=== PATIENT | female | born 1940 | race Caucasian/White ===

== ENCOUNTER → 2023-04-10 09:27 | Outpatient (REF) | payer MEDICARE, BC, SELFPAY ==
[2023-04-10 10:08] LABS: Ionized Calcium 1.22 mMOL/L (1.15-1.33)
[2023-04-10 10:18] LABS: % Basophils 0.4 % (0-2); % Eosinophils 2.2 % (0-6); % Immature Granulocytes 0.2 % (0-0.5); % Lymphocytes 38.4 % (20.5-51.1); % Monocytes 6.6 % (1.7-9.3); % Neutrophils 52.2 % (42.2-75.2); Absolute Basophils 0.1 10^3/uL (0-0.2); Absolute Eosinophils 0.3 10^3/uL (0-0.7); Absolute Lymphocytes 4.8 10^3/uL (1.2-3.4); Absolute Monocytes 0.8 10^3/uL (0.1-0.6); Absolute Neutrophils 6.5 10^3/uL (1.4-6.5); Hematocrit 36.4 % (37.0-47.0); Hemoglobin 11.9 g/dL (12.0-16.0); Mean Corp Hgb Conc. 32.7 g/dL (33.0-37.0); Mean Corpuscular Hgb 29.5 pg (27.0-31.0); Mean Corpuscular Volume 90.3 fL (81.0-99.0); Mean Platelet Volume 10.3 fL (7.4-10.4); Nucleated Red Blood Cells % 0 %; Platelet Count 203 10^3/uL (130-400); Red Blood Cell Count 4.03 10^6/uL (4.20-5.40); Red Cell Dist. Width 14.1 % (11.5-14.5); White Blood Cell Count 12.5 10^3/uL (4.8-10.8)
[2023-04-10 10:45] LABS: ALT (SGPT) 16 U/L (0-35); AST (SGOT) 21 U/L (14-36); Albumin 3.8 g/dl (3.5-5.0); Alkaline Phosphatase 117 U/L (38-126); Blood Urea Nitrogen 36 mg/dl (7-17); Carbon Dioxide 24 mmol/L (22-30); Chloride 108 mmol/L (98-107); Glucose 156 mg/dl (70-99); Magnesium 2.1 mg/dl (1.6-2.3); Phosphorus 3.6 mg/dl (2.5-4.5); Sodium 138 mmol/L (135-145); Total Bilirubin 0.7 mg/dl (0.2-1.3); Total Protein 6.7 g/dl (6.3-8.2); eGFR 27.78
[2023-04-10 10:54] LABS: Intact PTH 114.6 pg/ml (13.6-85.8)
[2023-04-10 11:10] LABS: Erythrocyte Sed Rate 28 mm/hour (0-20)
[2023-04-10 11:30] LABS: Protein/creatinine Ratio 0.3; Urine Protein 31 mg/dl
[2023-04-10 11:37] LABS: Vitamin D, 25-OH*** 53.9 ng/mL (30-80)
[2023-04-10 11:40] LABS: Urine Albumin Trace (Neg - Trace); Urine Bilirubin Negative (Negative); Urine Character Slightly Cloudy (Clear); Urine Color Yellow; Urine Glucose Negative (Negative); Urine Ketone Negative (Negative); Urine Leukocyte 2+ (Negative); Urine Nitrite Positive (Negative); Urine Occult Blood Trace (Negative); Urine Specific Gravity 1.015 (<1.030); Urine Urobilinogen Negative (Neg - 1+)
[2023-04-10 11:57] LABS: Urine Bacteria Many (Negative); Urine White Cell 50-60 /HPF (0-5)
== END ==
LOC: REG 09:27
PROVIDERS: ATTENDING PHYSICIAN Internal Medicine Nephrology; FAMILY PHYSICIAN Student in an Organized Health Care Education/Training Program
DX: D63.1 Anemia in chronic kidney disease (principal); E11.21 Type 2 diabetes mellitus with diabetic nephropathy; E78.5 Hyperlipidemia, unspecified; E55.9 Vitamin D deficiency, unspecified; R80.9 Proteinuria, unspecified; N18.4 Chronic kidney disease, stage 4 (severe); N25.81 Secondary hyperparathyroidism of renal origin
CPT/HCPCS: 36415; 80053; 81003; 81015; 82306; 82330; 82570; 83735; 83970; 84100; 84156; 84550; 85025; 85652; 87086; 87088; 87186

== ENCOUNTER 2023-04-22 12:00 | Emergency (ER) | payer MEDICARE, BC, SELFPAY ==
[2023-04-22] VITALS (24 sets, daily range): BP systolic 97–165; BP diastolic 50–127; BMI 24.6
[2023-04-22 12:49] LABS: % Basophils 0.3 % (0-2); % Eosinophils 1.1 % (0-6); % Immature Granulocytes 0.3 % (0-0.5); % Lymphocytes 39.1 % (20.5-51.1); % Monocytes 4.6 % (1.7-9.3); % Neutrophils 54.6 % (42.2-75.2); Absolute Eosinophils 0.1 10^3/uL (0-0.7); Absolute Lymphocytes 5.1 10^3/uL (1.2-3.4); Absolute Monocytes 0.6 10^3/uL (0.1-0.6); Absolute Neutrophils 7.2 10^3/uL (1.4-6.5); Hematocrit 37.1 % (37.0-47.0); Hemoglobin 12.2 g/dL (12.0-16.0); Mean Corp Hgb Conc. 32.9 g/dL (33.0-37.0); Mean Corpuscular Hgb 29.9 pg (27.0-31.0); Mean Corpuscular Volume 90.9 fL (81.0-99.0); Mean Platelet Volume 10.5 fL (7.4-10.4); Nucleated Red Blood Cells % 0 %; Platelet Count 186 10^3/uL (130-400); Red Blood Cell Count 4.08 10^6/uL (4.20-5.40); Red Cell Dist. Width 14.8 % (11.5-14.5); White Blood Cell Count 13.1 10^3/uL (4.8-10.8)
[2023-04-22 13:02] LABS: ALT (SGPT) 82 U/L (0-35); AST (SGOT) 112 U/L (14-36); Albumin 3.9 g/dl (3.5-5.0); Alkaline Phosphatase 168 U/L (38-126); Blood Urea Nitrogen 38 mg/dl (7-17); Calcium 8.8 mg/dl (8.4-10.2); Carbon Dioxide 20 mmol/L (22-30); Chloride 106 mmol/L (98-107); Glucose 265 mg/dl (70-99); Potassium 4.3 mmol/L (3.5-5.1); Sodium 133 mmol/L (135-145); Total Bilirubin 0.5 mg/dl (0.2-1.3); Total Protein 6.4 g/dl (6.3-8.2); eGFR 24.48
[2023-04-22 13:33] LABS: TSH Reflex To Free T4 1.62 uIU/ml (0.47-4.68)
--- NOTE | 2023-04-22 13:41 | EDRN ---
Aida VELAZQUEZ in room w/ pt.
--- NOTE | 2023-04-22 13:59 | EDRN ---
HR us 118-136 bpm in A Fib w/ RVR rhythm
[2023-04-22] MEDS: NSS 500 IV (14:07)
[2023-04-22] MEDS: CARDIZEM 15 MG IV (14:08)
[2023-04-22] MEDS: CARDIZEM 125 IV (14:08)
--- NOTE | 2023-04-22 14:11 | ED.GENMED ---
History of Present Illness
<Jenae Whitley PA-C - Last Filed: 04/23/23 11:44>
General
Chief Complaint: Heart Rate Problem
Source: patient
Exam Limitations: none
Time Seen by Provider: 04/22/23 13:26
Nursing documentation reviewed up to this point in time: agreed with
Travel History
Have you had any contact with someone who has COVID-19?: No
Do you have any symptoms of coronavirus? Fever > 100 degrees, chills, cough, shortness of breath, sore throat, loss of taste or smell, muscle aches, or headache?: No
History of Present Illness
History of Present Illness:
Patient is an 82-year-old female with history of paroxysmal A-fib on Eliquis, hypertension, hyperlipidemia, diabetes presenting for evaluation of A-fib after using Bilibot jaya this morning. Patient unsure exactly how long she has been in A-fib. She
does report noticing some increasing fatigue over the the past month but is attributing this to stress related to her ill . Patient denies any true shortness of breath, chest pain, weakness. No recent fever, chills, virus.
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 She has history of cardioversions.
She takes eliquis and carvedilol for management of afib - compliant with medications.
Past History
<ZACH Jimenez Last Filed: 04/23/23 11:44>
Past History
ED Past Medical History: Arrthythmia, CAD, HTN, Hypercholesterolemia, NIDDM and Hypothyroidism
ED Past Surgical History: Cardiac (Cath LAD stent)
Social History
Tobacco: Non-smoker
Alcohol: None
Drug: None
Personal:
Living: with family
Employment: Retired
Family History
Family History: CAD (MOM-ND age 50)
Phy Exam
<Jenae Whitley PA-C - Last Filed: 04/23/23 11:44>
Physical Exam
Physical Exam:
General: In no apparent distress, non-toxic
Vitals: tachycardia, otherwise vital signs stable, afebrile
HEENT: Atraumatic, normocephalic; protecting airway
Neck: appears supple, no JVD
CV: Tachycardic, irregular rate, irregular rhythm, heart sounds normal, no evidence of cyanosis
Resp: No evidence of respiratory distress, lungs clear bilaterally
Abd: Soft, nontender in all 4 quadrants, non-distended
Extremities: No deformities
Neuro: alert
Psych: Normal affect
Skin: Intact
Course
<Jenae Whitley PA-C - Last Filed: 04/23/23 11:44>
Orders/Labs/Results
Orders:
Orders
04/22/23 12:14
Electrocardiogram (*1) Urgent
Reason for Study: Atrial Fibrillation
EKG- Treatment ONCE
04/22/23 12:30
Complete Blood Count/With Diff Urgent
Comprehensive Metabolic Panel Urgent
TSH Reflex To Free T4 Urgent
04/22/23 13:54
0.9% Sodium Chloride 500 ml [Nss] 500 ml IV BOLUS
Diltiazem HCl [Cardizem] 15 mg IV NOW STA
04/22/23 14:00
Diltiazem 125 mg/125 ml Nss [Cardizem] 125 mg in 125 ml IV PER PROTOCOL
Initial dose in mg/hr, then titrate:: 5
Titrate to keep:: Heart rate 80-100 bpm
Titrate by mg/hr:: 5 mg/hr
Frequency of titrations (minutes):: 15
Maximum dose in mg/hr:: 15
04/22/23 16:39
Propofol [Diprivan] 20 ml .ROUTE .STK-MED
04/22/23 17:06
Electrocardiogram (*1) Urgent
Reason for Study: Chest Pain
EKG- Treatment ONCE
Abnormal Lab Results
04/22/23
12:30
WBC 13.1 H 10^3/uL
(4.8-10.8)
RBC 4.08 L 10^6/uL
(4.20-5.40)
MCHC 32.9 L g/dL
(33.0-37.0)
RDW 14.8 H %
(11.5-14.5)
MPV 10.5 H fL
(7.4-10.4)
Absolute Neuts (auto) 7.2 H 10^3/uL
(1.4-6.5)
Absolute Lymphs (auto) 5.1 H 10^3/uL
(1.2-3.4)
Sodium 133 L mmol/L
(135-145)
Carbon Dioxide 20 L mmol/L
(22-30)
BUN 38 H mg/dl
(7-17)
Creatinine 2.0 H mg/dL
(0.6-1.0)
Glucose 265 H mg/dl
(70-99)
AST 112 H U/L
(14-36)
ALT 82 H U/L
(0-35)
Alkaline Phosphatase 168 H U/L
(38-126)
04/22/23 12:30
04/22/23 12:30
Vital Signs
Initial and Last Documented VS:
Initial Vital Signs
Temp Pulse Resp BP Pulse Ox
98.4 F 136 18 117/94 100
04/22/23 12:12 04/22/23 12:12 04/22/23 12:12 04/22/23 12:12 04/22/23 12:12
Last Documented Vital Signs
Temp Pulse Resp BP Pulse Ox
97.6 F 59 16 165/64 97
04/22/23 17:15 04/22/23 18:01 04/22/23 18:01 04/22/23 18:01 04/22/23 18:01
<Jorgito Meadows MD - Last Filed: 04/22/23 15:07>
Orders/Labs/Results
Orders:
Orders
04/22/23 12:14
Electrocardiogram (*1) Urgent
Reason for Study: Atrial Fibrillation
EKG- Treatment ONCE
04/22/23 12:30
Complete Blood Count/With Diff Urgent
Comprehensive Metabolic Panel Urgent
TSH Reflex To Free T4 Urgent
04/22/23 13:54
0.9% Sodium Chloride 500 ml [Nss] 500 ml IV BOLUS
Diltiazem HCl [Cardizem] 15 mg IV NOW STA
04/22/23 14:00
Diltiazem 125 mg/125 ml Nss [Cardizem] 125 mg in 125 ml IV PER PROTOCOL
Initial dose in mg/hr, then titrate:: 5
Titrate to keep:: Heart rate 80-100 bpm
Titrate by mg/hr:: 5 mg/hr
Frequency of titrations (minutes):: 15
Maximum dose in mg/hr:: 15
04/22/23 16:39
Propofol [Diprivan] 20 ml .ROUTE .STK-MED
04/22/23 17:06
Electrocardiogram (*1) Urgent
Reason for Study: Chest Pain
EKG- Treatment ONCE
Abnormal Lab Results
04/22/23
12:30
WBC 13.1 H 10^3/uL
(4.8-10.8)
RBC 4.08 L 10^6/uL
(4.20-5.40)
MCHC 32.9 L g/dL
(33.0-37.0)
RDW 14.8 H %
(11.5-14.5)
MPV 10.5 H fL
(7.4-10.4)
Absolute Neuts (auto) 7.2 H 10^3/uL
(1.4-6.5)
Absolute Lymphs (auto) 5.1 H 10^3/uL
(1.2-3.4)
Sodium 133 L mmol/L
(135-145)
Carbon Dioxide 20 L mmol/L
(22-30)
BUN 38 H mg/dl
(7-17)
Creatinine 2.0 H mg/dL
(0.6-1.0)
Glucose 265 H mg/dl
(70-99)
AST 112 H U/L
(14-36)
ALT 82 H U/L
(0-35)
Alkaline Phosphatase 168 H U/L
(38-126)
04/22/23 12:30
04/22/23 12:30
Vital Signs
Initial and Last Documented VS:
Initial Vital Signs
Temp Pulse Resp BP Pulse Ox
98.4 F 136 18 117/94 100
04/22/23 12:12 04/22/23 12:12 04/22/23 12:12 04/22/23 12:12 04/22/23 12:12
Last Documented Vital Signs
Temp Pulse Resp BP Pulse Ox
97.6 F 59 16 165/64 97
04/22/23 17:15 04/22/23 18:01 04/22/23 18:01 04/22/23 18:01 04/22/23 18:01
<Marcus Erickson, DO - Last Filed: 04/22/23 17:10>
Orders/Labs/Results
Orders:
Orders
04/22/23 12:14
Electrocardiogram (*1) Urgent
Reason for Study: Atrial Fibrillation
EKG- Treatment ONCE
03/07/24 12:30
Complete Blood Count/With Diff Urgent
Comprehensive Metabolic Panel Urgent
TSH Reflex To Free T4 Urgent
04/22/23 13:54
0.9% Sodium Chloride 500 ml [Nss] 500 ml IV BOLUS
Diltiazem HCl [Cardizem] 15 mg IV NOW STA
04/22/23 14:00
Diltiazem 125 mg/125 ml Nss [Cardizem] 125 mg in 125 ml IV PER PROTOCOL
Initial dose in mg/hr, then titrate:: 5
Titrate to keep:: Heart rate 80-100 bpm
Titrate by mg/hr:: 5 mg/hr
Frequency of titrations (minutes):: 15
Maximum dose in mg/hr:: 15
04/22/23 16:39
Propofol [Diprivan] 20 ml .ROUTE .STK-MED
04/22/23 17:06
Electrocardiogram (*1) Urgent
Reason for Study: Chest Pain
EKG- Treatment ONCE
Abnormal Lab Results
04/22/23
12:30
WBC 13.1 H 10^3/uL
(4.8-10.8)
RBC 4.08 L 10^6/uL
(4.20-5.40)
MCHC 32.9 L g/dL
(33.0-37.0)
RDW 14.8 H %
(11.5-14.5)
MPV 10.5 H fL
(7.4-10.4)
Absolute Neuts (auto) 7.2 H 10^3/uL
(1.4-6.5)
Absolute Lymphs (auto) 5.1 H 10^3/uL
(1.2-3.4)
Sodium 133 L mmol/L
(135-145)
Carbon Dioxide 20 L mmol/L
(22-30)
BUN 38 H mg/dl
(7-17)
Creatinine 2.0 H mg/dL
(0.6-1.0)
Glucose 265 H mg/dl
(70-99)
AST 112 H U/L
(14-36)
ALT 82 H U/L
(0-35)
Alkaline Phosphatase 168 H U/L
(38-126)
04/22/23 12:30
04/22/23 12:30
Vital Signs
Initial and Last Documented VS:
Initial Vital Signs
Temp Pulse Resp BP Pulse Ox
98.4 F 136 18 117/94 100
04/22/23 12:12 04/22/23 12:12 04/22/23 12:12 04/22/23 12:12 04/22/23 12:12
Last Documented Vital Signs
Temp Pulse Resp BP Pulse Ox
97.6 F 59 16 165/64 97
04/22/23 17:15 04/22/23 18:01 04/22/23 18:01 04/22/23 18:01 04/22/23 18:01
Procedures
<Jenae Whitley PA-C - Last Filed: 04/23/23 11:44>
Cardioversion
Indication:: Afib
Performed by:: Dr. Erickson
<Marcus Erickson DO - Last Filed: 04/22/23 17:10>
Moderate Sedation
ASA Risk Score: Class II
Chart and allergies reviewed: Yes
Consent for anesthesia obtained: Yes
Time out completed (validating right patient & procedure): Yes
History of difficult intubation: No
Airway free of obstruction: Yes
Patient has a gag reflex: Yes
Patient is able to open mouth: Yes
Patient has no dentures: Yes
Patient has no loose teeth: Yes
Medication administered by Provider during Moderate Sedation: IV Propofol (mg)
Total dose administered: 50
Time drug administered: 17:02
Start Time: 17:02
Stop Time: 17:12
Cardioversion
Synchronized?: Yes
Energy Used: 150 joules
Number of attempts: 1
Successful?: Yes
Complications: None
ASA Risk Score: Class II
Any reaction or bad outcome to prior sedation/anesthesia?: No history of a reaction
Sedation level to be attained: moderate
Chart and allergies reviewed: Yes
Patient reassessed prior to sedation: Yes
Time out completed at (validating right patient & procedure): 17:01
History of difficult intubation: No
Airway free of obstruction: Yes
Patient has a gag reflex: Yes
Patient is able to open mouth: Yes
Patient has no dentures: Yes
Patient has no loose teeth: Yes
Medication administered by Provider during Moderate Sedation: IV Propofol (mg)
Total dose administered: 50
Time drug administered: 17:02
Start Time: 17:02
Stop Time: 17:12
<Jenae Whitley PA-C - Last Filed: 04/23/23 11:44>
MDM/Problems Addressed
Differential Diagnosis Includes:
Atrial fibrillation, UTI, viral illness, covid, influenza
MDM/Problems Addressed:
Patient is a 82 year old female with history as documented presenting in atrial fibrillation RVR after noticing on jaya, Bilibot this morning. Patient has noticed increased fatigue but is otherwise asymptomatic. Patient is compliant with eliquis and
carvedilol for afib. 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 She has required cardioversions in the past. She is tachycardic, otherwise stable vital signs. Physical examination as documented above. She is in no apparent distress. Heart
rate irregularly irregular, lungs clear.
Initial EKG shows atrial fibrillation RVR with no signs of ischemia, HR 108. Labs obtained in triage show milk leukocytosis and renal insufficiency which appears chronic. Also findings of transaminitis but patient denies any abdominal pain. She is
aware and will have labs rechecked with primary. TSH normal.
Patient is essentially asymptomatic and stable. Will attempt chemical cardioversion first. Gave 15mg cardizem bolus and will start drip. Will reassess.
Fortunately heart rate has decreased into normal ranges between 60s-80s but remains irregular in atrial fibrillation. Discussed with cardiology who recommend cardioversion in emergency department. Discussed with patient, consent signed. Will proceed
with cardioversion.
Cardioversion successful on first attempt 150J. Repeat EKG obtained which shows normal sinus rhythm. Will plan for discharge after sedation.
Patient stable for discharge with return precautions and cardiology follow-up. She should continue medications as prescribed. Patient comfortable with this plan. All questions answered.
Chronic conditions affecting care:
Atrial fibrillation, Hypertension
Acute Exacerbation and/or Progression of Chronic Illness:
Atrial fibrillation RVR
<Jenae Whitley PA-C - Last Filed: 04/23/23 11:44>
*Pulse Oximetry
Patient hypoxic: no
*EKG
Interpreted by ED Provider?: Yes
Interpretation: abnormal
Comparison EKG: changes noted
Heart Rate: 108
Rate: tachycardiac
Rhythm: a-fib
Ischemia: no ischemia
*Kettle Chipper Interpretation
Rate: tachycardiac
Interpretation: abnormal
Heart Rate: 120
Rhythm: a-fib
Data Reviewed
Review of Other/Old Records Reveals: Labs
Source: patient
<Marcus Erickson DO - Last Filed: 04/22/23 17:10>
*Critical Care Note
Total Time (30-74mins, 75-104mins- exclusive of procedures): 33 min
comment:
The high probability of a clinically significant, sudden or life threatening deterioration of the cardiovascular system(s) required my full and direct attention, intervention and personal management. The aggregate critical care time was 33 minutes.
This time is in addition to time spent performing reported procedures but includes the following:
[x] Data Review and interpretation
[x] Patient assessment and monitoring of vital signs
[x] Documentation
[x] Medication orders and management
<Jenae Whitley PA-C - Last Filed: 04/23/23 11:44>
Patient Management
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
<Marcus Erickson DO - Last Filed: 04/22/23 17:10>
Update Note
Update Note:
Care of patient was transitioned pending A-fib reassessment and cardiology input. Patient still in rate controlled A-fib despite being on Cardizem drip. Cardiology suggesting cardioversion. Patient consented for moderate sedation and
cardioversion. Patient was initially attempted on chemical cardioversion with IV Cardizem which was unsuccessful. Patient understands procedure and acknowledged risks. Patient tolerated procedure well and is currently in sinus rhythm.
ED Attending Note
<Jenae Whtiley PA-C - Last Filed: 04/23/23 11:44>
-
Portions of this chart may have been created with voice recognition software.� Occasional wrong word or��sound alike� substitutions may have occurred due to the inherent limitations of voice recognition software.
<Jorgito Meadows MD - Last Filed: 04/22/23 15:07>
ED Attending Note
Patient seen and examined by attending physician: Yes
ED Attending Note:
Patient with history of paroxysmal atrial fibrillation on Eliquis and carvedilol, presents to ED secondary to recurrent atrial fibrillation noted this morning, when she checked her pulse on Bilibot jaya. Patient denies dizziness or shortness of
breath. Denies fatigue or weakness. Denies chest pain or shortness of breath. Denies nausea or vomiting. Patient states that she only checked her pulse, at the prompting of her daughters, and she has been under heavy stress due to deteriorating
health conditions of her . Denies recent change in medications or diet. AM dose of Eliquis was taken this morning at home.
Physical Exam
General: no apparent distress, not acutely ill. afebrile
Head: nc/at. eomi
Neck: supple. no meningeal signs.
Heart: irregularly irregular, tachycardic, no murmur. equal radial pulses.
Lungs: no acute respiratory distress. clear bilaterally
Abdomen: normal bowel sounds. not tender.
Neuro: alert and oriented. no focal neurological deficits
Skin: no rash
Psychiatric: well kept. interactive and cooperative
Extremities: no edema. no calf tenderness.
History and exam consistent with rapid atrial fibrillation, without any overt symptoms. Patient will be given IV fluids, Cardizem bolus and started on Cardizem infusion. Patient to be reassessed afterwards.
Discharge Plan
Departure
Patient Disposition: Home (Routine Discharge)
Date of Disposition: 04/22/23
Time of Disposition: 17:40
Patient with high blood pressure during this ER visit?: Yes
Condition: Good
Covid-19: Not Applicable
Discharge Problem:
Atrial fibrillation with rapid ventricular response, Encounter for cardioversion procedure
Instructions: Atrial Fibrillation (DC), MODERATE SEDATION ADULT
Prescriptions:
No Action
cyanocobalamin (vitamin B-12) 1,000 MCG tablet
1,000 mcg PO DAILY
ascorbic acid (vitamin C) 250 MG tablet
250 mg PO DAILY
rosuvastatin 10 MG tablet
10 mg PO HS
cholecalciferol (vitamin D3) 1,000 UNITS tablet
3,000 units PO DAILY
levothyroxine 75 mcg Tablet
75 mcg PO DAILY
insulin glargine [Lantus Solostar U-100 Insulin] 100 unit/mL (3 mL) insulin pen
13 unit SC HS
lidocaine [Salonpas (lidocaine)] 4 % Adhesive Patch,Medicated
1 patch TOPICAL DAILY
carvedilol 12.5 mg Tablet
12.5 mg PO BID 30 Days Qty: 60 0RF
Eliquis 2.5 mg tablet
2.5 mg PO BID
insulin aspart U-100 [Novolog FlexPen U-100 Insulin] 100 unit/mL (3 mL) insulin pen
5 units SC AC
Referrals:
Susie Mc PA-C [Family Provider] -
Cam Read MD [Active] - 05/06/23 11:20 am (You have a cardiology follow-up appointment at the [place] office. Please call with questions)
Activity Restrictions/Additional Instructions:
-Return to the emergency department with high fevers, chest pain, shortness of breath, weakness, intractable vomiting, numbness/tingling, severe abdominal pain, worsening in current symptoms, or any other concerns.
-You should continue to take your medications as prescribed.
-Follow-up with cardiology for further evaluation/management of atrial fibrillation.
-Stay well hydrated.
-As discussed- your liver function tests were elevated today while in the emergency department. You should have these levels rechecked with your primary care provider.
Interventions
Interventions:
*Risk Screen - Suicide Last Done: 04/22/23 13:10
*General Assessment Last Done: 04/22/23 13:10
*Neglect/Abuse Screening Last Done: 04/22/23 13:10
ED- Fall Risk Assessment Last Done: 04/22/23 13:10
*ED COVID-19 Vaccine History Last Done: 04/22/23 13:10
*Nursing Disposition Last Done: 04/22/23 18:25
ED- Cardiac Assessment Last Done: 04/22/23 13:10
ED- Pulmonary Assessment Last Done: 04/22/23 13:10
Discharge Date and Time
Discharge Date/Time: 04/22/23 18:25
--- NOTE | 2023-04-22 14:32 | EDRN ---
This RN contacted [facility] about how to notify POA. They will notify POA as they usually do via e-mail w/ info that This RN gave them. This RN was also told by facility that pt is not ajudicated and is able to make his own decisions even
with his mild MR.
--- NOTE | 2023-04-22 15:07 | EDRN ---
HR 60's to 80's at this time. Cardizem remains at 5 mcg per min/5 mL per hour via pump. Rhythm remains A Fib.
--- NOTE | 2023-04-22 15:56 | EDRN ---
Pt just OOB to BR at this time. Cardizem maintained at 5 mg per min/ 5 mL per hour at this time as HR <80.
--- NOTE | 2023-04-22 15:58 | EDRN ---
Pt remains in A FIb w/ controlled ventricular response w/ rate 60-90's at this time. Pt is now awaiting Aida VELAZQUEZ to speak w/ cardiology about plan going forward for pt.
--- NOTE | 2023-04-22 17:12 | EDRN ---
Cardizem turned off at 16:[address] order of [address] Eirckson as pt to have cardioversion.
== END 2023-04-22 18:25 | disposition home or self-care (01) ==
LOC: EMR 12:00
PROVIDERS: Emergency Medicine; EMERGENCY PHYSICIAN Student in an Organized Health Care Education/Training Program; FAMILY PHYSICIAN Student in an Organized Health Care Education/Training Program
DX: I48.20 Chronic atrial fibrillation, unspecified (principal); I48.0 Paroxysmal atrial fibrillation; I10 Essential (primary) hypertension; N28.9 Disorder of kidney and ureter, unspecified; D72.829 Elevated white blood cell count, unspecified; Z79.01 Long term (current) use of anticoagulants
CPT/HCPCS: 99291; 92960; 96374; 96376; 99152; 96361; 80053; 84443; 85025; 93005

== ENCOUNTER → 2023-05-29 08:21 | Outpatient (REF) | payer MEDICARE, BC, SELFPAY ==
[2023-05-29 09:24] LABS: % Basophils 0.4 % (0-2); % Eosinophils 1.6 % (0-6); % Immature Granulocytes 0.3 % (0-0.5); % Lymphocytes 47.1 % (20.5-51.1); % Monocytes 4.9 % (1.7-9.3); % Neutrophils 45.7 % (42.2-75.2); Absolute Basophils 0.1 10^3/uL (0-0.2); Absolute Eosinophils 0.2 10^3/uL (0-0.7); Absolute Lymphocytes 6.3 10^3/uL (1.2-3.4); Absolute Monocytes 0.7 10^3/uL (0.1-0.6); Absolute Neutrophils 6.1 10^3/uL (1.4-6.5); Hemoglobin 12.8 g/dL (12.0-16.0); Mean Corpuscular Hgb 29.4 pg (27.0-31.0); Mean Corpuscular Volume 91.7 fL (81.0-99.0); Mean Platelet Volume 10.2 fL (7.4-10.4); Nucleated Red Blood Cells % 0 %; Platelet Count 203 10^3/uL (130-400); Red Blood Cell Count 4.36 10^6/uL (4.20-5.40); Red Cell Dist. Width 14.7 % (11.5-14.5); White Blood Cell Count 13.4 10^3/uL (4.8-10.8)
[2023-05-29 10:38] LABS: ALT (SGPT) 17 U/L (0-35); AST (SGOT) 25 U/L (14-36); Albumin 4.4 g/dl (3.5-5.0); Alkaline Phosphatase 87 U/L (38-126); Blood Urea Nitrogen 26 mg/dl (7-17); Calcium 10.2 mg/dl (8.4-10.2); Carbon Dioxide 26 mmol/L (22-30); Chloride 108 mmol/L (98-107); Direct Bilirubin 0.4 mg/dl (0.0-0.4); Glucose 66 mg/dl (70-99); HDL Cholesterol 75 mg/dl; LDL Cholesterol, Calculated 65 mg/dl; Potassium 4.3 mmol/L (3.5-5.1); Sodium 143 mmol/L (135-145); Total Bilirubin 0.7 mg/dl (0.2-1.3); Total Cholesterol 153 mg/dl (50-199); Triglyceride 69 mg/dl (10-149); Very Low Density Lipoprotein 13 mg/dl (0-30)
[2023-05-29 10:44] LABS: Free T4 1.62 ng/dl (0.78-2.19)
[2023-05-29 10:57] LABS: TSH 0.91 uIU/ml (0.47-4.68)
[2023-05-29 11:52] LABS: Glycohemoglobin (HgbA1c) 8.4 % (4.0-5.6)
== END ==
LOC: REG 08:21
PROVIDERS: ATTENDING PHYSICIAN Internal Medicine Cardiovascular Disease; FAMILY PHYSICIAN Physician Assistant
DX: E11.65 Type 2 diabetes mellitus with hyperglycemia (principal); E03.9 Hypothyroidism, unspecified; E78.00 Pure hypercholesterolemia, unspecified
CPT/HCPCS: 36415; 80053; 80061; 82248; 83036; 84439; 84443; 85025

== ENCOUNTER 2023-07-02 20:00 | Emergency (ER) | payer MEDICARE, BC, SELFPAY ==
[2023-07-02] VITALS (11 sets, daily range): BP systolic 127–169; BP diastolic 55–98
[2023-07-02 20:40] LABS: % Basophils 0.5 % (0-2); % Eosinophils 1.2 % (0-6); % Immature Granulocytes 0.4 % (0-0.5); % Monocytes 5.8 % (1.7-9.3); % Neutrophils 55.1 % (42.2-75.2); Absolute Basophils 0.1 10^3/uL (0-0.2); Absolute Eosinophils 0.2 10^3/uL (0-0.7); Absolute Immature Granulocytes 0.1 10^3/uL (0-0.05); Absolute Lymphocytes 4.9 10^3/uL (1.2-3.4); Absolute Monocytes 0.8 10^3/uL (0.1-0.6); Absolute Neutrophils 7.3 10^3/uL (1.4-6.5); Hematocrit 42.6 % (37.0-47.0); Mean Corp Hgb Conc. 32.9 g/dL (33.0-37.0); Mean Corpuscular Hgb 29.7 pg (27.0-31.0); Mean Corpuscular Volume 90.3 fL (81.0-99.0); Mean Platelet Volume 10.4 fL (7.4-10.4); Nucleated Red Blood Cells % 0 %; Platelet Count 180 10^3/uL (130-400); Red Blood Cell Count 4.72 10^6/uL (4.20-5.40); Red Cell Dist. Width 14.4 % (11.5-14.5); White Blood Cell Count 13.3 10^3/uL (4.8-10.8)
[2023-07-02 20:52] LABS: ALT (SGPT) 21 U/L (0-35); AST (SGOT) 36 U/L (14-36); Albumin 4.5 g/dl (3.5-5.0); Alkaline Phosphatase 93 U/L (38-126); Blood Urea Nitrogen 39 mg/dl (7-17); Calcium 10.1 mg/dl (8.4-10.2); Carbon Dioxide 23 mmol/L (22-30); Chloride 104 mmol/L (98-107); Glucose 110 mg/dl (70-99); Magnesium 2.1 mg/dl (1.6-2.3); Sodium 138 mmol/L (135-145); Total Bilirubin 0.5 mg/dl (0.2-1.3); Total Protein 7.2 g/dl (6.3-8.2); eGFR 29.76
--- NOTE | 2023-07-02 21:37 | ED.GENMED ---
History of Present Illness
General
Chief Complaint: Cardiac Symptoms
Source: patient and family (Daughter)
Exam Limitations: none
Time Seen by Provider: 07/02/23 20:17
Nursing documentation reviewed up to this point in time: agreed with
Travel History
Have you had any contact with someone who has COVID-19?: No
Do you have any symptoms of coronavirus? Fever > 100 degrees, chills, cough, shortness of breath, sore throat, loss of taste or smell, muscle aches, or headache?: No
History of Present Illness
History of Present Illness:
82-year-old female with a past medical history of hypertension, hyperlipidemia, diabetes, CAD status post stent, atrial fibrillation on Eliquis who presents to the emergency department for evaluation of atrial fibrillation. Patient says that she
has no symptoms but her daughter says that she seemed a bit more fatigued than usual. Daughter says that she forced patient to check vital signs using an jaya on her phone and patient was found to be in atrial fibrillation. Patient says she does
not have any symptoms�she denies any chest pain, palpitations, shortness of breath, dizziness. She says she does not feel more fatigued and tired than usual. She says she does not want to be here and wants to go home. She has been compliant with
her Eliquis including taking her dose today. She follows with Dr. Read for cardiology. She was last cardioverted in April.
Past History
Past History
ED Past Medical History: Arrthythmia, CAD, HTN, Hypercholesterolemia, NIDDM and Hypothyroidism
ED Past Surgical History: Cardiac (Cath LAD stent)
Social History
Tobacco: Non-smoker
Alcohol: None
Drug: None
Personal:
Living: with family
Employment: Retired
Family History
Family History: CAD (MOM-[place] age 50)
Review of Systems
Review of Systems
All Other Systems: ROS reviewed and negative except as documented in HPI and ROS
Constitutional: Denies fever
Respiratory: Denies trouble breathing
Cardiac: Denies chest pain, palpitations or syncope
ABD/GI: Denies abdominal pain, nausea or vomiting
: Denies flank pain
Musculoskeletal: Denies neck pain or back pain
Neurological: Denies dizzy or headache
Phy Exam
Physical Exam
Physical Exam:
General: Awake, alert, oriented x3; no acute distress
Head: Normocephalic, atraumatic
Eyes: Conjunctiva normal
Throat: Airway intact, handling secretions
Neck: Trachea midline, supple without meningismus
Lungs: Clear to auscultation bilaterally, no wheezing, rales, rhonchi
Heart: Tachycardia with irregularly irregular rhythm, no murmurs, gallops, or rubs
Abd: Soft, non distended, nontender
Neuro: Cranial nerves grossly intact, speech fluid
Skin: no rash
Extremities: No edema in extremities, equal pulses in all extremities
Scores
Heart Failure Risk
Heart Failure Risk Score: Not Applicable
Heart Score for Chest Pain Patients
STEMI patient?: Not applicable
Withdrawal Assessment of Alcohol
Withdrawal Assessment Completed?: Not applicable
Course
Orders/Labs/Results
Orders:
Orders
07/02/23 20:05
EKG [Electrocardiogram (*1)] Urgent
Reason for Study: Atrial Fibrillation
EKG- Treatment ONCE
07/02/23 20:34
Complete Blood Count/With Diff Urgent
Comprehensive Metabolic Panel Urgent
Magnesium Urgent
07/02/23 21:01
Propofol [Diprivan] 20 ml .ROUTE .STK-MED
07/02/23 21:44
Electrocardiogram (*1) Urgent
Reason for Study: Abnormal EKG
Electrocardiogram (*1) Urgent
Reason for Study: Atrial Fibrillation
Other Reason for Exam: cardioversion
EKG- Treatment ONCE
Abnormal Lab Results
07/02/23
20:34
WBC 13.3 H 10^3/uL
(4.8-10.8)
MCHC 32.9 L g/dL
(33.0-37.0)
Abs Immat Gran (auto) 0.1 H 10^3/uL
(0-0.05)
Absolute Neuts (auto) 7.3 H 10^3/uL
(1.4-6.5)
Absolute Lymphs (auto) 4.9 H 10^3/uL
(1.2-3.4)
Absolute Monos (auto) 0.8 H 10^3/uL
(0.1-0.6)
BUN 39 H mg/dl
(7-17)
Creatinine 1.7 H mg/dL
(0.6-1.0)
Glucose 110 H mg/dl
(70-99)
07/02/23 20:34
07/02/23 20:34
Vital Signs
Initial and Last Documented VS:
Initial Vital Signs
Temp Pulse Resp BP Pulse Ox
36.1 C L 128 17 136/77 99
07/02/23 20:04 07/02/23 20:04 07/02/23 20:04 07/02/23 20:04 07/02/23 20:04
Last Documented Vital Signs
Temp Pulse Resp BP Pulse Ox
36.6 C 70 11 163/69 96
07/02/23 21:50 07/02/23 22:05 07/02/23 22:05 07/02/23 22:05 07/02/23 22:05
Procedures
Cardioversion
Indication:: Afib
Performed by:: Lee Davenport MD
Synchronized?: Yes
Energy Used: 200 joules
Number of attempts: 1
Successful?: Yes
ASA Risk Score: Class III
Any reaction or bad outcome to prior sedation/anesthesia?: No history of a reaction
Sedation level to be attained: moderate
Chart and allergies reviewed: Yes
Patient reassessed prior to sedation: Yes
Time out completed at (validating right patient & procedure): 21:42
History of difficult intubation: No
Airway free of obstruction: Yes
Patient has a gag reflex: Yes
Patient is able to open mouth: Yes
Patient has no dentures: Yes
Patient has no loose teeth: Yes
Medication administered by Provider during Moderate Sedation: IV Propofol (mg)
Total dose administered: 40
Time drug administered: 21:42
Start Time: 21:42
Stop Time: 21:52
MDM/Problems Addressed
Differential Diagnosis Includes:
Atrial fibrillation with rapid ventricular response
MDM/Problems Addressed:
82-year-old female with history as documented presents for evaluation after being found to be in A-fib. Daughter thought that patient was more fatigued and when they checked her vital signs she was found to be in A-fib. She reports compliance with
her medications including Eliquis. She sees Dr. Read for cardiology. EKG confirms A-fib with RVR. She is normotensive with no symptoms. Plan to check basic screening labs. Will discuss with cardiology�likely a candidate for ED cardioversion.
Case discussed with cardiology agreed with trial of ED cardioversion. Reviewed her basic labs and she has no clinically significant abnormalities�creatinine of 1.7 is baseline for her. Patient is eager to undergo this procedure�consent filed in
medical record.
Patient cardioverted successfully as documented in procedure note. EKG confirms sinus rhythm. Will continue to monitor status post cardioversion if she remains awake and alert, asymptomatic in sinus rhythm will discharge with cardiology referral.
Chronic conditions affecting care:
Atrial fibrillation
Acute Exacerbation and/or Progression of Chronic Illness:
Acutely hypertensive
Acute exacerbation of chronic A-fib
Acute Exacerbation and/or Progression of Chronic Illness: HTN and Arrhythmia
*Pulse Oximetry
Patient hypoxic: no
*EKG
Interpreted by ED Provider?: Yes
Comparison EKG: changes noted (A-fib with RVR)
Heart Rate: 126
Rate: tachycardiac
Rhythm: a-fib
[place]: normal axis
Interval: normal interval
QRS Pattern: normal QRS
Ischemia: non-specific ST changes
*Critical Care Note
Total Time (30-74mins, 75-104mins- exclusive of procedures): Not Applicable
Data Reviewed
Review of Other/Old Records Reveals: Labs and Records
Source: patient, records and family (Daughter)
Patient Management
Discussion with other providers: [employer] (Discussed with cardiology)
ED Attending Note
-
Portions of this chart may have been created with voice recognition software.� Occasional wrong word or��sound alike� substitutions may have occurred due to the inherent limitations of voice recognition software.
Discharge Plan
Departure
Patient with high blood pressure during this ER visit?: Yes
Discharge Problem:
Atrial fibrillation status post cardioversion
Instructions: Atrial Fibrillation (DC), MODERATE SEDATION ADULT
Prescriptions:
No Action
cyanocobalamin (vitamin B-12) 1,000 MCG tablet
1,000 mcg PO DAILY
ascorbic acid (vitamin C) 250 MG tablet
250 mg PO DAILY
rosuvastatin 10 MG tablet
10 mg PO HS
cholecalciferol (vitamin D3) 1,000 UNITS tablet
3,000 units PO DAILY
levothyroxine 75 mcg Tablet
75 mcg PO DAILY
insulin glargine [Lantus Solostar U-100 Insulin] 100 unit/mL (3 mL) insulin pen
13 unit SC HS
lidocaine [Salonpas (lidocaine)] 4 % Adhesive Patch,Medicated
1 patch TOPICAL DAILY
carvedilol 12.5 mg Tablet
12.5 mg PO BID 30 Days Qty: 60 0RF
Eliquis 2.5 mg tablet
2.5 mg PO BID
insulin aspart U-100 [Novolog FlexPen U-100 Insulin] 100 unit/mL (3 mL) insulin pen
5 units SC AC
Referrals:
Cam Read MD [Active] - Call in 1-3 days for appt
Andrew Coley DO [Family Provider] -
Activity Restrictions/Additional Instructions:
Thank you for visiting the Emergency Department at [facility].
1. Please schedule a follow up appointment as directed. Call first thing tomorrow morning to make an appointment.
2. If indicated, please take your medications as instructed and indicated on discharge paperwork.
3. If any of your symptoms do not improve, or persist, or become more severe within 6-12 hours, please return to the emergency department for further care.
4. Please return to the emergency department if you develop a headache, neck pain/stiffness, fever greater than 100.4F, chest pain, shortness of breath, persistent nausea, vomiting, slurred speech, difficulty walking, numbness/tingling, weakness,
signs of infection or any other symptoms that are worrisome to you.
Please call [phone] if you have any questions.
Interventions
Interventions:
*ED COVID-19 Vaccine History Last Done: 07/02/23 20:04
ED- Pulmonary Assessment Last Done: 07/02/23 20:31
ED- Cardiac Assessment Last Done: 07/02/23 20:31
Discharge Date and Time
Print Language: GREEK
== END 2023-07-02 23:01 | disposition home or self-care (01) ==
LOC: EMR 20:00
PROVIDERS: EMERGENCY PHYSICIAN Emergency Medicine; FAMILY PHYSICIAN Family Medicine
DX: I48.91 Unspecified atrial fibrillation (principal); I10 Essential (primary) hypertension; E78.00 Pure hypercholesterolemia, unspecified; E11.9 Type 2 diabetes mellitus without complications; I25.10 Atherosclerotic heart disease of native coronary artery without angina pectoris
CPT/HCPCS: 99285; 92960; 99152; 80053; 83735; 85025; 93005

== ENCOUNTER → 2023-08-18 12:43 | Outpatient (REF) | payer MEDICARE, BC, SELFPAY ==
[2023-08-18 13:21] LABS: % Basophils 0.4 % (0-2); % Immature Granulocytes 0.3 % (0-0.5); % Lymphocytes 42.1 % (20.5-51.1); % Monocytes 4.6 % (1.7-9.3); % Neutrophils 50.6 % (42.2-75.2); Absolute Basophils 0.1 10^3/uL (0-0.2); Absolute Eosinophils 0.3 10^3/uL (0-0.7); Absolute Lymphocytes 5.9 10^3/uL (1.2-3.4); Absolute Monocytes 0.7 10^3/uL (0.1-0.6); Absolute Neutrophils 7.1 10^3/uL (1.4-6.5); Hematocrit 38.7 % (37.0-47.0); Hemoglobin 12.8 g/dL (12.0-16.0); Mean Corp Hgb Conc. 33.1 g/dL (33.0-37.0); Mean Corpuscular Hgb 29.6 pg (27.0-31.0); Mean Corpuscular Volume 89.6 fL (81.0-99.0); Mean Platelet Volume 10.3 fL (7.4-10.4); Nucleated Red Blood Cells % 0 %; Platelet Count 174 10^3/uL (130-400); Red Blood Cell Count 4.32 10^6/uL (4.20-5.40); Red Cell Dist. Width 13.9 % (11.5-14.5)
[2023-08-18 13:24] LABS: Ionized Calcium 1.18 mMOL/L (1.15-1.33)
[2023-08-18 13:46] LABS: ALT (SGPT) 17 U/L (0-35); AST (SGOT) 24 U/L (14-36); Albumin 4.4 g/dl (3.5-5.0); Alkaline Phosphatase 95 U/L (38-126); Blood Urea Nitrogen 39 mg/dl (7-17); Calcium 9.6 mg/dl (8.4-10.2); Carbon Dioxide 25 mmol/L (22-30); Chloride 103 mmol/L (98-107); Glucose 112 mg/dl (70-99); Phosphorus 4.1 mg/dl (2.5-4.5); Potassium 4.4 mmol/L (3.5-5.1); Sodium 138 mmol/L (135-145); Total Bilirubin 0.6 mg/dl (0.2-1.3); Uric Acid 6.2 mg/dl (2.5-6.2); eGFR 29.57
[2023-08-18 13:51] LABS: Intact PTH 85.4 pg/ml (13.6-85.8)
[2023-08-18 13:59] LABS: Protein/creatinine Ratio 0.4; Urine Protein 22 mg/dl
[2023-08-18 14:01] LABS: Urine Albumin Negative (Neg - Trace); Urine Bilirubin Negative (Negative); Urine Character Clear (Clear); Urine Color Yellow; Urine Glucose Negative (Negative); Urine Ketone Negative (Negative); Urine Leukocyte 2+ (Negative); Urine Nitrite Negative (Negative); Urine Occult Blood Negative (Negative); Urine Urobilinogen Negative (Neg - 1+); Urine pH 6.5 (5.0-9.0)
[2023-08-18 14:20] LABS: Urine Bacteria Moderate (Negative); Urine Red Blood Cell 0-2 /HPF (0-2); Urine Urothelial Cell 0-2 /LPF (FEW); Urine White Cell 26-30 /HPF (0-5)
[2023-08-18 14:48] LABS: Vitamin D, 25-OH*** 48.2 ng/mL (30-80)
== END ==
LOC: REG 12:43
PROVIDERS: ATTENDING PHYSICIAN Internal Medicine Nephrology; FAMILY PHYSICIAN Family Medicine
DX: D63.1 Anemia in chronic kidney disease (principal); E11.21 Type 2 diabetes mellitus with diabetic nephropathy; E78.5 Hyperlipidemia, unspecified; E55.9 Vitamin D deficiency, unspecified; R80.9 Proteinuria, unspecified; N18.4 Chronic kidney disease, stage 4 (severe); N25.81 Secondary hyperparathyroidism of renal origin
CPT/HCPCS: 36415; 80053; 81003; 81015; 82306; 82330; 82570; 83735; 83970; 84100; 84156; 84550; 85025; 87077; 87086; 87186

== ENCOUNTER → 2023-11-27 08:25 | Outpatient (REF) | payer MEDICARE, BC, SELFPAY ==
[2023-11-27 10:14] LABS: % Basophils 0.5 % (0-2); % Eosinophils 1.2 % (0-6); % Immature Granulocytes 0.3 % (0-0.5); % Monocytes 5.6 % (1.7-9.3); % Neutrophils 42.4 % (42.2-75.2); Absolute Basophils 0.1 10^3/uL (0-0.2); Absolute Eosinophils 0.2 10^3/uL (0-0.7); Absolute Immature Granulocytes 0.1 10^3/uL (0-0.05); Absolute Lymphocytes 9.3 10^3/uL (1.2-3.4); Absolute Neutrophils 7.9 10^3/uL (1.4-6.5); Hematocrit 40.2 % (37.0-47.0); Hemoglobin 13.2 g/dL (12.0-16.0); Mean Corp Hgb Conc. 32.8 g/dL (33.0-37.0); Mean Corpuscular Hgb 30.4 pg (27.0-31.0); Mean Corpuscular Volume 92.6 fL (81.0-99.0); Mean Platelet Volume 10.5 fL (7.4-10.4); Nucleated Red Blood Cells % 0 %; Platelet Count 218 10^3/uL (130-400); Red Blood Cell Count 4.34 10^6/uL (4.20-5.40); White Blood Cell Count 18.6 10^3/uL (4.8-10.8)
[2023-11-27 10:50] LABS: Free T4 1.76 ng/dl (0.78-2.19)
[2023-11-27 11:04] LABS: TSH 1.49 uIU/ml (0.47-4.68)
[2023-11-27 11:35] LABS: ALT (SGPT) 31 U/L (0-35); AST (SGOT) 34 U/L (14-36); Albumin 4.3 g/dl (3.5-5.0); Alkaline Phosphatase 83 U/L (38-126); Blood Urea Nitrogen 30 mg/dl (7-17); Calcium 9.7 mg/dl (8.4-10.2); Carbon Dioxide 27 mmol/L (22-30); Chloride 104 mmol/L (98-107); Glucose < 30 mg/dl (70-99); Potassium 4.3 mmol/L (3.5-5.1); Sodium 144 mmol/L (135-145); Total Bilirubin 0.5 mg/dl (0.2-1.3); Total Protein 6.9 g/dl (6.3-8.2)
== END ==
LOC: REG 08:25
PROVIDERS: ATTENDING PHYSICIAN Physician Assistant; FAMILY PHYSICIAN Student in an Organized Health Care Education/Training Program
DX: E11.65 Type 2 diabetes mellitus with hyperglycemia (principal); E03.9 Hypothyroidism, unspecified
CPT/HCPCS: 36415; 80053; 83036; 84439; 84443; 85025

== ENCOUNTER 2023-12-26 12:35 | Emergency (ER) | payer MEDICARE, BC, SELFPAY ==
[2023-12-26] VITALS (11 sets, daily range): BP systolic 121–151; BP diastolic 55–106
--- NOTE | 2023-12-26 13:08 | ED.GENMED ---
History of Present Illness
<Jing Carbajal CAREER TECHNOLOGY TEACHER - Last Filed: 12/26/23 15:38>
General
Chief Complaint: Heart Rate Problem
Source: patient and family (daughter at bedside)
Exam Limitations: none
Time Seen by Provider: 12/26/23 12:57
Nursing documentation reviewed up to this point in time: agreed with
History of Present Illness
History of Present Illness:
81-year-old female with a past medical history of hypertension, hyperlipidemia, CAD, insulin-dependent diabetes, CKD, atrial fibrillation on Eliquis (follows with Dr. Read) who presents to the ED for 'I'm in a fib.' She was routinely checking her
property assessment monitor and noted the a fib. She is asymptomatic. Denies lightheadedness, SOB, CP, palpitations.
Past History
<Jing Carbajal, CAREER TECHNOLOGY TEACHER - Last Filed: 12/26/23 15:38>
Past History
ED Past Medical History: Arrthythmia, CAD, HTN, Hypercholesterolemia, NIDDM and Hypothyroidism
ED Past Surgical History: Cardiac (Cath LAD stent)
Social History
Tobacco: Non-smoker
Alcohol: None
Drug: None
Personal:
Living: with family
Employment: Retired
Family History
Family History: CAD (MOM-[place] age 50)
Review of Systems
<Jing Carbajal, CAREER TECHNOLOGY TEACHER - Last Filed: 12/26/23 15:38>
Review of Systems
Allergies reviewed?: Yes
All Other Systems: ROS reviewed and negative except as documented in HPI and ROS
Constitutional: Denies fever or fatigue
Respiratory: Denies trouble breathing
Cardiac: Denies chest pain, diaphoresis or palpitations
ABD/GI: Denies abdominal pain or nausea
: Denies dysuria or difficulty voiding
Musculoskeletal: Denies edema
Skin: Reports no symptoms
Neurological: Reports no symptoms
Phy Exam
<Jing Carbajal, CAREER TECHNOLOGY TEACHER - Last Filed: 12/26/23 15:38>
Physical Exam
Physical Exam:
GENERAL: No acute distress. A&Ox3.
CONSTITUTIONAL: Afebrile.
EYES: PERRL, conjunctivae normal
Neck: Supple
ENMT: moist mucus membranes, Pharynx nl
RESPIRATORY: Regular respirations, nonlabored, lungs clear.
CARDIOVASCULAR: Irregular rate and rhythm, no murmurs, no rubs.
GI: Soft, nontender, normal BS
MUSCULOSKELETAL: Moves with ease. Well perfused.
SKIN: Warm, dry, pink
PSYCH: Normal mood and affect. Well kept, interactive and appropriate
NEUROLOGIC: Awake, alert and oriented. No focal neurological deficits
Course
<Jing Carbajal, CAREER TECHNOLOGY TEACHER - Last Filed: 12/26/23 15:38>
Orders/Labs/Results
Orders:
Orders
12/26/23 12:36
EKG [Electrocardiogram (*1)] Urgent
Reason for Study: Atrial Fibrillation
EKG- Treatment ONCE
12/26/23 13:19
Complete Blood Count/With Diff Urgent
Comprehensive Metabolic Panel Urgent
Magnesium Urgent
12/26/23 13:44
Propofol [Diprivan] 20 ml .ROUTE .STK-MED
Abnormal Lab Results
12/26/23
13:19
WBC 11.6 H 10^3/uL
(4.8-10.8)
RBC 4.14 L 10^6/uL
(4.20-5.40)
MCHC 32.3 L g/dL
(33.0-37.0)
MPV 10.7 H fL
(7.4-10.4)
Absolute Neuts (auto) 6.7 H 10^3/uL
(1.4-6.5)
Absolute Lymphs (auto) 3.8 H 10^3/uL
(1.2-3.4)
Absolute Monos (auto) 0.8 H 10^3/uL
(0.1-0.6)
Chloride 108 H mmol/L
(98-107)
Carbon Dioxide 20 L mmol/L
(22-30)
BUN 39 H mg/dl
(7-17)
Creatinine 1.9 H mg/dL
(0.6-1.0)
Glucose 193 H mg/dl
(70-99)
AST 37 H U/L
(14-36)
ALT 39 H U/L
(0-35)
12/26/23 13:19
12/26/23 13:19
Vital Signs
Initial and Last Documented VS:
Initial Vital Signs
Temp Pulse Resp BP Pulse Ox
98.0 F 110 16 151/93 99
12/26/23 12:37 12/26/23 12:37 12/26/23 12:37 12/26/23 12:37 12/26/23 12:37
Last Documented Vital Signs
Temp Pulse Resp BP Pulse Ox
97.9 F 66 15 135/65 99
12/26/23 14:49 12/26/23 14:30 12/26/23 14:30 12/26/23 14:30 12/26/23 14:30
<Jorgito Meadows MD - Last Filed: 12/26/23 14:01>
Orders/Labs/Results
Orders:
Orders
12/26/23 12:36
EKG [Electrocardiogram (*1)] Urgent
Reason for Study: Atrial Fibrillation
EKG- Treatment ONCE
12/26/23 13:19
Complete Blood Count/With Diff Urgent
Comprehensive Metabolic Panel Urgent
Magnesium Urgent
12/26/23 13:44
Propofol [Diprivan] 20 ml .ROUTE .STK-MED
Abnormal Lab Results
12/26/23
13:19
WBC 11.6 H 10^3/uL
(4.8-10.8)
RBC 4.14 L 10^6/uL
(4.20-5.40)
MCHC 32.3 L g/dL
(33.0-37.0)
MPV 10.7 H fL
(7.4-10.4)
Absolute Neuts (auto) 6.7 H 10^3/uL
(1.4-6.5)
Absolute Lymphs (auto) 3.8 H 10^3/uL
(1.2-3.4)
Absolute Monos (auto) 0.8 H 10^3/uL
(0.1-0.6)
Chloride 108 H mmol/L
(98-107)
Carbon Dioxide 20 L mmol/L
(22-30)
BUN 39 H mg/dl
(7-17)
Creatinine 1.9 H mg/dL
(0.6-1.0)
Glucose 193 H mg/dl
(70-99)
AST 37 H U/L
(14-36)
ALT 39 H U/L
(0-35)
12/26/23 13:19
12/26/23 13:19
Vital Signs
Initial and Last Documented VS:
Initial Vital Signs
Temp Pulse Resp BP Pulse Ox
98.0 F 110 16 151/93 99
12/26/23 12:37 12/26/23 12:37 12/26/23 12:37 12/26/23 12:37 12/26/23 12:37
Last Documented Vital Signs
Temp Pulse Resp BP Pulse Ox
97.9 F 66 15 135/65 99
12/26/23 14:49 12/26/23 14:30 12/26/23 14:30 12/26/23 14:30 12/26/23 14:30
Procedures
<Jing Carbajal CAREER TECHNOLOGY TEACHER - Last Filed: 12/26/23 15:38>
Moderate Sedation
ASA Risk Score: Class I
Chart and allergies reviewed: Yes
Consent for anesthesia obtained: Yes
Time out completed (validating right patient & procedure): Yes
History of difficult intubation: No
Airway free of obstruction: Yes
Patient has a gag reflex: Yes
Patient is able to open mouth: Yes
Patient has no dentures: Yes
Patient has no loose teeth: Yes
Medication administered by Provider during Moderate Sedation: IV Propofol (mg)
Total dose administered: 30
Time drug administered: 13:50
Moderate Sedation Procedure End Time: 14:00
<Jing Carbajal, CAREER TECHNOLOGY TEACHER - Last Filed: 12/26/23 15:38>
MDM/Problems Addressed
Differential Diagnosis Includes:
afib w RVR
MDM/Problems Addressed:
81-year-old female with a past medical history of hypertension, hyperlipidemia, CAD, insulin-dependent diabetes, CKD, atrial fibrillation on Eliquis (follows with Dr. Read) who presents to the ED for 'I'm in a fib.' She was routinely checking her
property assessment monitor and noted the a fib. She is asymptomatic. Denies lightheadedness, SOB, CP, palpitations.
EKG: Afib rate
Monitor HR
Records reviewed: The last 6 times pt came in [id number], Cardizem and drip attempted, failed and was cardioverted each time.
CBC unremarkable
CMP: Consistent with her CKD
Mg++normal
Case discussed with Dr. Meadows who agrees with going right to cardioversion.
Consent signed
1:55
Pt successfully cardioverted to NSR
EKG: NSR
3:00 p.m.
Pt awake, oriented, eating, OOB and ambulated. Stable for discharge
<Jing Carbajal CAREER TECHNOLOGY TEACHER - Last Filed: 12/26/23 15:38>
*Critical Care Note
Total Time (30-74mins, 75-104mins- exclusive of procedures): Not Applicable
ED Attending Note
<Jing Carbajal CAREER TECHNOLOGY TEACHER - Last Filed: 12/26/23 15:38>
-
Portions of this chart may have been created with voice recognition software.� Occasional wrong word or��sound alike� substitutions may have occurred due to the inherent limitations of voice recognition software.
<Jorgito Meadows MD - Last Filed: 12/26/23 14:01>
ED Attending Note
Patient seen and examined by attending physician: Yes
ED Attending Note:
Patient with history of paroxysmal atrial fibrillation on Eliquis, presents to ED from home secondary to recurrent episode of atrial fibrillation, as detected by her monitor. Patient however, denies any associated symptoms, i.e. chest pain,
shortness of breath, dizziness. Denies recent illness. Denies recent change in medications or diet. Patient unfortunately has had number of similar symptoms in the past, requiring cardioversion in ED. Patient has spoken with her welfare project manager
regarding her recurrent episodes. Patient has an appointment with her primary welfare project manager, Dr. Read in 1 month.
Physical Exam
General: no apparent distress, not acutely ill. afebrile
Head: nc/at. eomi
Neck: supple. no meningeal signs.
Heart: irregularly irregular, no murmur. equal radial pulses.
Lungs: no acute respiratory distress. clear bilaterally
Abdomen: normal bowel sounds. not tender
Neuro: alert and oriented. no focal neurological deficits
Skin: no rash
Psychiatric: well kept. interactive and cooperative
Extremities: no edema. no calf tenderness.
History exam consistent with recurrent rapid atrial fibrillation. After discussion with patient and family, decision made to perform cardioversion.
Procedure consent on the chart.
Patient successfully converted to normal sinus rhythm, after administration of 30 mg of propofol, confirmed by repeat EKG.
Critical care statement: A total of 40 minutes of critical care time was provided for this patient. This includes management of unstable vital signs, evaluation of the patient at bedside, reviewing the patient's pertinent medical records, review of
old EKGs and review of pertinent medical records. This time with separate from time utilized to perform the aforementioned documented procedures
Discharge Plan
Departure
Patient Disposition: Home (Routine Discharge)
Date of Disposition: 12/26/23
Time of Disposition: 14:59
Patient with high blood pressure during this ER visit?: No
Condition: Good
Discharge Problem:
Atrial fibrillation with rapid ventricular response
Instructions: Moderate Sedation in Adults (DC)
Prescriptions:
No Action
cyanocobalamin (vitamin B-12) 1,000 MCG tablet
1,000 mcg PO DAILY
ascorbic acid (vitamin C) 250 MG tablet
250 mg PO DAILY
rosuvastatin 10 MG tablet
10 mg PO HS
cholecalciferol (vitamin D3) 1,000 UNITS tablet
25 mcg PO Q48H
levothyroxine 75 mcg Tablet
75 mcg PO DAILY
insulin glargine [Lantus Solostar U-100 Insulin] 100 unit/mL (3 mL) insulin pen
11 unit SC HS
lidocaine [Salonpas (lidocaine)] 4 % Adhesive Patch,Medicated
1 patch TOPICAL DAILY
carvedilol 12.5 mg Tablet
12.5 mg PO BID 30 Days Qty: 60 0RF
Eliquis 2.5 mg tablet
2.5 mg PO BID
insulin aspart U-100 [Novolog FlexPen U-100 Insulin] 100 unit/mL (3 mL) insulin pen
5 units SC AC
Referrals:
Susie Jarquin PA-C [Family Provider] -
Cam Read MD [Active] - Tomorrow
Activity Restrictions/Additional Instructions:
Call the [facility] off tomorrow early a.m. and let them know you were here for another cardioversion.
Ask to please move your appointment up. Discuss with Dr. Read possibly being started on an antiarrhythmic medication.
Interventions
Interventions:
*Risk Screen - Suicide Last Done: 12/26/23 12:37
*General Assessment Last Done: 12/26/23 12:37
*Neglect/Abuse Screening Last Done: 12/26/23 12:37
*ED COVID-19 Vaccine History Last Done: 12/26/23 12:37
*Nursing Disposition Last Done: 12/26/23 15:11
ED- Cardiac Assessment Last Done: 12/26/23 13:07
ED- Pulmonary Assessment Last Done: 12/26/23 13:07
Discharge Date and Time
Discharge Date/Time: 12/26/23 15:12
Print Language: AMHARIC
[2023-12-26 13:32] LABS: % Basophils 0.6 % (0-2); % Eosinophils 1.8 % (0-6); % Immature Granulocytes 0.3 % (0-0.5); % Neutrophils 57.3 % (42.2-75.2); Absolute Basophils 0.1 10^3/uL (0-0.2); Absolute Eosinophils 0.2 10^3/uL (0-0.7); Absolute Lymphocytes 3.8 10^3/uL (1.2-3.4); Absolute Monocytes 0.8 10^3/uL (0.1-0.6); Absolute Neutrophils 6.7 10^3/uL (1.4-6.5); Hematocrit 38.1 % (37.0-47.0); Hemoglobin 12.3 g/dL (12.0-16.0); Mean Corp Hgb Conc. 32.3 g/dL (33.0-37.0); Mean Corpuscular Hgb 29.7 pg (27.0-31.0); Mean Platelet Volume 10.7 fL (7.4-10.4); Nucleated Red Blood Cells % 0 %; Platelet Count 162 10^3/uL (130-400); Red Blood Cell Count 4.14 10^6/uL (4.20-5.40); Red Cell Dist. Width 13.7 % (11.5-14.5); White Blood Cell Count 11.6 10^3/uL (4.8-10.8)
[2023-12-26 13:45] LABS: ALT (SGPT) 39 U/L (0-35); AST (SGOT) 37 U/L (14-36); Albumin 4.2 g/dl (3.5-5.0); Alkaline Phosphatase 103 U/L (38-126); Blood Urea Nitrogen 39 mg/dl (7-17); Calcium 9.4 mg/dl (8.4-10.2); Carbon Dioxide 20 mmol/L (22-30); Chloride 108 mmol/L (98-107); Glucose 193 mg/dl (70-99); Magnesium 1.9 mg/dl (1.6-2.3); Potassium 4.5 mmol/L (3.5-5.1); Sodium 141 mmol/L (135-145); Total Bilirubin 0.4 mg/dl (0.2-1.3); Total Protein 6.6 g/dl (6.3-8.2); eGFR 25.88
== END 2023-12-26 15:12 | disposition home or self-care (01) ==
LOC: EMR 12:35
PROVIDERS: Registered Nurse; EMERGENCY PHYSICIAN Emergency Medicine; FAMILY PHYSICIAN Student in an Organized Health Care Education/Training Program
DX: I48.91 Unspecified atrial fibrillation (principal); I25.10 Atherosclerotic heart disease of native coronary artery without angina pectoris; I12.9 Hypertensive chronic kidney disease with stage 1 through stage 4 chronic kidney disease, or unspecified chronic kidney disease; E11.22 Type 2 diabetes mellitus with diabetic chronic kidney disease; N18.9 Chronic kidney disease, unspecified; E03.9 Hypothyroidism, unspecified; E78.00 Pure hypercholesterolemia, unspecified; Z79.01 Long term (current) use of anticoagulants; Z95.5 Presence of coronary angioplasty implant and graft
CPT/HCPCS: 92960; 99152; 99291; 80053; 83735; 85025; 93005

== ENCOUNTER → 2024-02-05 11:25 | Outpatient (REF) | payer MEDICARE, BC, SELFPAY ==
[2024-02-05 12:29] LABS: Urine Albumin Trace (Neg - Trace); Urine Bilirubin Negative (Negative); Urine Character Slightly Cloudy (Clear); Urine Color Yellow; Urine Glucose Negative (Negative); Urine Ketone Negative (Negative); Urine Leukocyte 2+ (Negative); Urine Nitrite Negative (Negative); Urine Occult Blood 1+ (Negative); Urine Urobilinogen Negative (Neg - 1+)
[2024-02-05 12:33] LABS: % Basophils 0.4 % (0-2); % Eosinophils 1.4 % (0-6); % Immature Granulocytes 0.2 % (0-0.5); % Lymphocytes 39.6 % (20.5-51.1); % Monocytes 5.6 % (1.7-9.3); % Neutrophils 52.8 % (42.2-75.2); Absolute Basophils 0.1 10^3/uL (0-0.2); Absolute Eosinophils 0.2 10^3/uL (0-0.7); Absolute Lymphocytes 5.2 10^3/uL (1.2-3.4); Absolute Monocytes 0.7 10^3/uL (0.1-0.6); Absolute Neutrophils 6.9 10^3/uL (1.4-6.5); Hematocrit 39.1 % (37.0-47.0); Hemoglobin 12.7 g/dL (12.0-16.0); Mean Corp Hgb Conc. 32.5 g/dL (33.0-37.0); Mean Corpuscular Hgb 29.7 pg (27.0-31.0); Mean Corpuscular Volume 91.6 fL (81.0-99.0); Nucleated Red Blood Cells % 0 %; Platelet Count 173 10^3/uL (130-400); Red Blood Cell Count 4.27 10^6/uL (4.20-5.40); Red Cell Dist. Width 13.6 % (11.5-14.5); White Blood Cell Count 13.1 10^3/uL (4.8-10.8)
[2024-02-05 12:44] LABS: ALT (SGPT) 19 U/L (0-35); AST (SGOT) 21 U/L (14-36); Albumin 4.1 g/dl (3.5-5.0); Alkaline Phosphatase 87 U/L (38-126); Blood Urea Nitrogen 36 mg/dl (7-17); Calcium 9.5 mg/dl (8.4-10.2); Carbon Dioxide 24 mmol/L (22-30); Chloride 106 mmol/L (98-107); Glucose 115 mg/dl (70-99); Phosphorus 3.7 mg/dl (2.5-4.5); Potassium 4.2 mmol/L (3.5-5.1); Sodium 137 mmol/L (135-145); Total Bilirubin 0.6 mg/dl (0.2-1.3); Total Protein 6.8 g/dl (6.3-8.2); Uric Acid 5.5 mg/dl (2.5-6.2); eGFR 34.36
[2024-02-05 12:54] LABS: Intact PTH 68.9 pg/ml (13.6-85.8)
[2024-02-05 12:59] LABS: Glycohemoglobin (HgbA1c) 8.6 % (4.0-5.6)
[2024-02-05 13:00] LABS: Vitamin D, 25-OH*** 48.7 ng/mL (30-80)
[2024-02-05 13:05] LABS: Urine Squamous Cell 0-2 /LPF (Few)
[2024-02-05 13:07] LABS: Urine Bacteria Moderate (Negative); Urine White Cell >100 /HPF (0-5)
[2024-02-05 16:36] LABS: Protein/creatinine Ratio 0.7; Urine Protein 37 mg/dl
== END ==
LOC: REG 11:25
PROVIDERS: ATTENDING PHYSICIAN Internal Medicine Nephrology; FAMILY PHYSICIAN Student in an Organized Health Care Education/Training Program
DX: D63.1 Anemia in chronic kidney disease (principal); E11.21 Type 2 diabetes mellitus with diabetic nephropathy; E78.5 Hyperlipidemia, unspecified; E55.9 Vitamin D deficiency, unspecified; R80.9 Proteinuria, unspecified; N18.4 Chronic kidney disease, stage 4 (severe); N25.81 Secondary hyperparathyroidism of renal origin
CPT/HCPCS: 36415; 80053; 81003; 81015; 82306; 82330; 82570; 83036; 83735; 83970; 84100; 84156; 84550; 85025; 87077; 87086; 87186

== ENCOUNTER 2024-03-07 09:32 | Emergency (ER) | payer MEDICARE, BC, SELFPAY ==
[2024-03-07 09:50] VITALS: BP 118/79
[2024-03-07 11:11] VITALS: BP 136/108
[2024-03-07] MEDS: COREG 12.5 MG PO (11:31)
--- NOTE | 2024-03-07 11:32 | ED.GENMED ---
History of Present Illness
General
Chief Complaint: Cardiac Symptoms
Source: patient and family
Time Seen by Provider: 03/07/24 11:15
History of Present Illness
History of Present Illness:
83-year-old female with past medical history of paroxysmal atrial fibrillation, CAD, hypertension, hyperlipidemia, insulin-dependent diabetes and mild chronic kidney disease presenting to the emergency department for evaluation after checking her
cardio mobile jaya this morning which she does frequently noting that the jaya told her she was in atrial fibrillation. Patient is asymptomatic and declines any chest pain, shortness of breath, palpitations, diaphoresis, exertional dyspnea or any
other concerns. Patient notes that this is normal for her to not experience any symptoms while in A-fib. She has noted multiple cardioversions in the past. She also states that she has often at times noted to be in A-fib at home and then when
coming to the emergency department is back in a normal sinus rhythm. She reports good compliance with both her carvedilol and Eliquis. She does note a cardioversion a few months ago here. She did see Dr. Read in office as well just a couple of
weeks ago and was told everything was good. Patient any fevers or recent illnesses.
Past History
Past History
ED Past Medical History: Arrthythmia, CAD, HTN, Hypercholesterolemia, NIDDM and Hypothyroidism
ED Past Surgical History: Cardiac (Cath LAD stent)
Social History
Tobacco: Non-smoker
Alcohol: None
Drug: None
Personal:
Living: with family
Employment: Retired
Family History
Family History: CAD (MOM-MA age 50)
Review of Systems
Review of Systems
All Other Systems: ROS reviewed and negative except as documented in HPI and ROS
Phy Exam
Physical Exam
Physical Exam:
GENERAL: Alert , in no apparent distress
HEAD: Normocephalic atraumatic
EYE: Clear conjunctiva
NECK: Supple
ENT: o/p clr, mmm.
CARDIAC: Irregularly irregular, intermittently tachycardic with rates between 90 and 115 bpm
LUNGS: Clear breath sounds bilaterally, no acute respiratory distress,
NEUROLOGICAL: Alert and oriented
SKIN: Warm and dry, skin intact.
MUSCULOSKELETAL: No edema, well perfused.
PSYCH: Normal and appropriate interaction.
Scores
Heart Failure Risk
Heart Failure Risk Score: Not Applicable
Heart Score for Chest Pain Patients
STEMI patient?: Not applicable
Withdrawal Assessment of Alcohol
Withdrawal Assessment Completed?: Not applicable
Course
Orders/Labs/Results
Orders:
Orders
03/07/24 09:34
ECG [Electrocardiogram (*1)] Urgent
Reason for Study: Abnormal EKG
EKG- Treatment ONCE
03/07/24 11:24
Carvedilol [Coreg] 12.5 mg PO NOW STA
Vital Signs
Initial and Last Documented VS:
Initial Vital Signs
Temp Pulse Resp BP Pulse Ox
97.1 F 122 18 118/79 100
03/07/24 09:50 03/07/24 09:50 03/07/24 09:50 03/07/24 09:50 03/07/24 09:50
Last Documented Vital Signs
Temp Pulse Resp BP Pulse Ox
97.1 F 109 19 127/90 98
03/07/24 09:50 03/07/24 12:45 03/07/24 12:45 03/07/24 12:00 03/07/24 11:30
MDM/Problems Addressed
Differential Diagnosis Includes:
Paroxysmal atrial fibrillation, valvular dysfunction, thyroid disorder, electrolyte disturbance
MDM/Problems Addressed:
83-year-old female presenting to the emergency department for evaluation of atrial fibrillation that was noted on her her mobile jaya, patient otherwise asymptomatic. Has been cardioverted multiple times in the emergency department. Has reportedly
talked to toys inspector about ablation however was recommended against this. Patient is compliant with her anticoagulant as well as her carvedilol. Presently remains asymptomatic. Discussed risk versus benefit of cardioversion and at this time
patient states she does not want to be cardioverted and instead opting for an increased dose of her carvedilol here to maintain her heart rate. Advised patient that I would contact cardiology team and patient would need outpatient follow-up to make
sure she is back into a normal sinus rhythm and if not she may need a cardioversion completed as an outpatient. Patient is in agreement with this plan. Will monitor patient in the ER.
Chronic conditions affecting care: Arrhythmia
Acute Exacerbation and/or Progression of Chronic Illness: Arrhythmia
*Pulse Oximetry
Patient hypoxic: no
*EKG
Interpreted by ED Provider?: Yes
Heart Rate: 107
Rate: tachycardiac
Rhythm: a-fib
Ischemia: T-wave inversion (Lateral leads)
*Automation Clerk Interpretation
Rate: tachycardiac
Rhythm: a-fib
*Critical Care Note
Total Time (30-74mins, 75-104mins- exclusive of procedures): Not Applicable
Patient Management
Discussion with other providers: Nitric Acid Concentrator Operator
Escalation/DeEscalation of care consider admission/obs:
Patient's heart rate remained between 95 and 110 during monitoring. She remains asymptomatic. She feels comfortable being discharged home. Cardiology team was notified and will help with outpatient follow-up. Patient aware of return precautions
to the emergency department.
ED Attending Note
-
Portions of this chart may have been created with voice recognition software.� Occasional wrong word or��sound alike� substitutions may have occurred due to the inherent limitations of voice recognition software.
Discharge Plan
Departure
Patient Disposition: Home (Routine Discharge)
Date of Disposition: 03/07/24
Time of Disposition: 12:34
Patient with high blood pressure during this ER visit?: Yes
Discharge Problem:
Paroxysmal atrial fibrillation
Instructions: Atrial fibrillation - Discharge instructions, Chest Pain DCA Follow Up
Prescriptions:
No Action
cyanocobalamin (vitamin B-12) 1,000 MCG tablet
1,000 mcg PO DAILY
ascorbic acid (vitamin C) 250 MG tablet
250 mg PO DAILY
rosuvastatin 10 MG tablet
10 mg PO HS
cholecalciferol (vitamin D3) 1,000 UNITS tablet
25 mcg PO Q48H
levothyroxine 75 mcg Tablet
75 mcg PO DAILY
insulin glargine [Lantus Solostar U-100 Insulin] 100 unit/mL (3 mL) insulin pen
11 unit SC HS
lidocaine [Salonpas (lidocaine)] 4 % Adhesive Patch,Medicated
1 patch TOPICAL DAILY
carvedilol 12.5 mg Tablet
12.5 mg PO BID 30 Days Qty: 60 0RF
Eliquis 2.5 mg tablet
2.5 mg PO BID
insulin aspart U-100 [Novolog FlexPen U-100 Insulin] 100 unit/mL (3 mL) insulin pen
5 units SC AC
Referrals:
Susie Jarquin PA-C [Family Provider] -
Interventions
Interventions:
*Risk Screen - Suicide Last Done: 03/07/24 09:50
*General Assessment Last Done: 03/07/24 09:50
*Neglect/Abuse Screening Last Done: 03/07/24 09:54
ED- Fall Risk Assessment Last Done: 03/07/24 11:14
*ED COVID-19 Vaccine History Last Done: 03/07/24 09:50
*Nursing Disposition Last Done: 03/07/24 12:51
ED- Pulmonary Assessment Last Done: 03/07/24 11:14
ED- Cardiac Assessment Last Done: 03/07/24 11:14
Discharge Date and Time
Discharge Date/Time: 03/07/24 12:55
Print Language: KYRGYZ
[2024-03-07 12:00] VITALS: BP 127/90
== END 2024-03-07 12:55 | disposition home or self-care (01) ==
LOC: EMR 09:32
PROVIDERS: EMERGENCY PHYSICIAN Emergency Medicine; FAMILY PHYSICIAN Student in an Organized Health Care Education/Training Program
DX: I48.0 Paroxysmal atrial fibrillation (principal); I25.10 Atherosclerotic heart disease of native coronary artery without angina pectoris; I12.9 Hypertensive chronic kidney disease with stage 1 through stage 4 chronic kidney disease, or unspecified chronic kidney disease; N18.9 Chronic kidney disease, unspecified
CPT/HCPCS: 99283; 93005

== ENCOUNTER 2024-03-12 22:16 | Inpatient (IN) | payer MEDICARE, BC, SELFPAY ==
[2024-03-12] VITALS (15 sets, daily range): BP systolic 100–140; BP diastolic 56–112; BMI 25.0
[2024-03-12 12:30] LABS: % Basophils 0.4 % (0-2); % Eosinophils 0.8 % (0-6); % Immature Granulocytes 0.4 % (0-0.5); % Lymphocytes 31.9 % (20.5-51.1); % Monocytes 5.7 % (1.7-9.3); % Neutrophils 60.8 % (42.2-75.2); Absolute Basophils 0.1 10^3/uL (0-0.2); Absolute Eosinophils 0.1 10^3/uL (0-0.7); Absolute Immature Granulocytes 0.1 10^3/uL (0-0.05); Absolute Lymphocytes 4.4 10^3/uL (1.2-3.4); Absolute Monocytes 0.8 10^3/uL (0.1-0.6); Absolute Neutrophils 8.4 10^3/uL (1.4-6.5); Hematocrit 38.7 % (37.0-47.0); Hemoglobin 12.5 g/dL (12.0-16.0); Mean Corp Hgb Conc. 32.3 g/dL (33.0-37.0); Mean Corpuscular Hgb 29.3 pg (27.0-31.0); Mean Corpuscular Volume 90.8 fL (81.0-99.0); Mean Platelet Volume 10.8 fL (7.4-10.4); Nucleated Red Blood Cells % 0 %; Platelet Count 154 10^3/uL (130-400); Red Blood Cell Count 4.26 10^6/uL (4.20-5.40); Red Cell Dist. Width 14.4 % (11.5-14.5); White Blood Cell Count 13.8 10^3/uL (4.8-10.8)
[2024-03-12 12:41] LABS: INR 1.64; PT 19.6 Sec (11.4-14.6)
[2024-03-12 12:44] LABS: ALT (SGPT) 75 U/L (0-35); AST (SGOT) 49 U/L (14-36); Albumin 3.9 g/dl (3.5-5.0); Alkaline Phosphatase 135 U/L (38-126); Blood Urea Nitrogen 52 mg/dl (7-17); Carbon Dioxide 20 mmol/L (22-30); Chloride 103 mmol/L (98-107); Glucose 284 mg/dl (70-99); Potassium 4.1 mmol/L (3.5-5.1); Sodium 134 mmol/L (135-145); Total Bilirubin 0.5 mg/dl (0.2-1.3); Total Protein 6.3 g/dl (6.3-8.2); eGFR 24.33
[2024-03-12 13:24] LABS: Magnesium 2.1 mg/dl (1.6-2.3)
[2024-03-12] MEDS: NSS 500 IV ×2 (13:27→17:32)
[2024-03-12] MEDS: CARDIZEM 15 MG IV (13:32)
[2024-03-12] MEDS: CARDIZEM 125 IV ×2 (13:33→21:37)
--- NOTE | 2024-03-12 14:20 | ED.GENMED ---
History of Present Illness
<Jorgito Meadows MD - Last Filed: 03/12/24 22:45>
General
Chief Complaint: Heart Rate Problem
Source: patient
Exam Limitations: none
Time Seen by Provider: 03/12/24 12:34
Nursing documentation reviewed up to this point in time: agreed with
History of Present Illness
History of Present Illness:
Patient with history of paroxysmal atrial fibrillation on Eliquis, presents to ED secondary to 2-day history of intermittent lightheaded sensation when standing up, resolved when sitting back down. In addition, patient has cardio mobile jaya which
also told her that she is in atrial fibrillation rhythm. Denies chest pain/sob/nausea/vomiting. Denies recent change in medications or diet. Pt was seen in ED recently for similar complaint, during which time, rate was controlled with recommendation
for cardiology evaluation. Pt has an appt with an EP cardiology in 2 days.
Past History
<Jorgito Meadows MD - Last Filed: 03/12/24 22:45>
Past History
ED Past Medical History: Arrthythmia, CAD, HTN, Hypercholesterolemia, NIDDM and Hypothyroidism
ED Past Surgical History: Cardiac (Cath LAD stent)
Social History
Tobacco: Non-smoker
Alcohol: None
Drug: None
Personal:
Living: with family
Employment: Retired
Family History
Family History: CAD (MOM-MO age 50)
Review of Systems
<Jorgito Meadows MD - Last Filed: 03/12/24 22:45>
Review of Systems
Allergies reviewed?: Yes
All Other Systems: ROS reviewed and negative except as documented in HPI and ROS
Constitutional: Reports no symptoms
EENT: Reports no symptoms
Respiratory: Reports no symptoms
Cardiac: Reports no symptoms
ABD/GI: Reports no symptoms
Musculoskeletal: Reports no symptoms
Skin: Reports no symptoms
Neurological: Reports dizzy
Phy Exam
<Jorgito Meadows MD - Last Filed: 03/12/24 22:45>
Physical Exam
Physical Exam:
General: well nourished female, in no acute distress. Afebrile.
Heent: nc/at. eomi
Heart: irregularly irregular, tachycardic. no murmur
Lungs: CTA.
Abd: soft and nontender.
Neuro: AAO x 3. no focal neurological deficit.
Skin: no rash.
Psych: pleasant and cooperative.
Ext: no edema.
Course
<Jorgito Meadows MD - Last Filed: 03/12/24 22:45>
Orders/Labs/Results
Orders:
Orders
03/12/24 12:12
Electrocardiogram (*1) Urgent
Reason for Study: Chest Pain
EKG- Treatment ONCE
03/12/24 12:15
Complete Blood Count/With Diff Urgent
Comprehensive Metabolic Panel Urgent
Magnesium Urgent
Comment: ADD ON
Prothrombin Time Urgent
TSH Reflex To Free T4 Urgent
Comment: ADD ON
03/12/24 13:03
Add On- LAB Urgent
Tests Added?: magnesium, TSH to reflex Free T4
03/12/24 13:11
0.9% Sodium Chloride 500 ml [Nss] 500 ml IV BOLUS
Diltiazem HCl [Cardizem] 15 mg IV NOW STA
03/12/24 13:30
Diltiazem 125 mg/125 ml Nss [Cardizem] 125 mg in 125 ml IV PER PROTOCOL
Initial dose in mg/hr, then titrate:: 5
Titrate to keep:: Heart rate 80-100 bpm
Titrate by mg/hr:: 5 mg/hr
Frequency of titrations (minutes):: 15
Maximum dose in mg/hr:: 15
03/12/24 17:31
0.9% Sodium Chloride 500 ml [Nss] 500 ml IV BOLUS
03/12/24 20:51
Admit/Transfer Patient As Directed
Co-Sign Provider:
Level of Care: Inpatient admission
Assign to:: Telemetry
Physician / Group: chelsea
Diagnosis: afib rvr
Reason for Telemetry: Arrhythmia
Date to Stop Telemetry: 03/15/24
Time to Stop Telemetry: 11:00
Reason for Hospitalization: afib rvr
Expected length of stay greater than two midnights?: Yes
ELOS- Estimated Length of Stay in days: 2
I certify the patient meets the requirements for IP care: Yes
PRN Pain Medication Management As Directed
May give lesser potent ordered pain med per pt: Yes
preference::
Protocol:: Medication orders for pain may be administered in a
manner that supports deferring to patient preference
when the pt is:
- Requesting an ordered lesser potent pain medication.
Least to most potent pain medications are defined
as: acetaminophen < NSAID < tramadol < opioids
(morphine, oxycodone, hydromorphone).
- Requesting a lesser dose of the same medication IF
ORDERED.
- Requesting a less intrusive route of administration
if both routes are prescribed by the provider (PO <
IV).
03/12/24 20:52
Code Status As Directed
Resuscitation Status: Full Code
03/12/24 20:58
CR Chest - 2 Views Urgent
Comment:
Reason For Exam: cough
03/12/24 21:06
COVID-19 Antigen Urgent
Source: Nasal Swab
Influenza A+B Rapid Molecular Urgent
ROBERTO Source: Nasal Swab
Specimen Description:
03/15/24 11:00
DC Protocol for Telemetry ONCE
Abnormal Lab Results
03/12/24 03/12/24
12:15 16:44
WBC 13.8 H 10^3/uL
(4.8-10.8)
MCHC 32.3 L g/dL
(33.0-37.0)
MPV 10.8 H fL
(7.4-10.4)
Abs Immat Gran (auto) 0.1 H 10^3/uL
(0-0.05)
Absolute Neuts (auto) 8.4 H 10^3/uL
(1.4-6.5)
Absolute Lymphs (auto) 4.4 H 10^3/uL
(1.2-3.4)
Absolute Monos (auto) 0.8 H 10^3/uL
(0.1-0.6)
PT 19.6 H Sec
(11.4-14.6)
Sodium 134 L mmol/L
(135-145)
Carbon Dioxide 20 L mmol/L
(22-30)
BUN 52 H mg/dl
(7-17)
Creatinine 2.0 H mg/dL
(0.6-1.0)
Glucose 284 H mg/dl
(70-99)
AST 49 H U/L
(14-36)
ALT 75 H U/L
(0-35)
Alkaline Phosphatase 135 H U/L
(38-126)
POC Glucose 227 H mg/dl
(70-99)
03/12/24 12:15
03/12/24 12:15
Vital Signs
Initial and Last Documented VS:
Initial Vital Signs
Temp Pulse Resp BP Pulse Ox
97.5 F 121 20 100/74 97
03/12/24 12:02 03/12/24 12:02 03/12/24 12:02 03/12/24 12:02 03/12/24 12:02
Last Documented Vital Signs
Temp Pulse Resp BP Pulse Ox
98.1 F 115 19 129/76 97
03/12/24 21:23 03/12/24 22:17 03/12/24 22:17 03/12/24 22:17 03/12/24 21:12
<Dane Yoon, DO - Last Filed: 03/12/24 22:40>
Orders/Labs/Results
Orders:
Orders
03/12/24 12:12
Electrocardiogram (*1) Urgent
Reason for Study: Chest Pain
EKG- Treatment ONCE
03/12/24 12:15
Complete Blood Count/With Diff Urgent
Comprehensive Metabolic Panel Urgent
Magnesium Urgent
Comment: ADD ON
Prothrombin Time Urgent
TSH Reflex To Free T4 Urgent
Comment: ADD ON
03/12/24 13:03
Add On- LAB Urgent
Tests Added?: magnesium, TSH to reflex Free T4
03/12/24 13:11
0.9% Sodium Chloride 500 ml [Nss] 500 ml IV BOLUS
Diltiazem HCl [Cardizem] 15 mg IV NOW STA
03/12/24 13:30
Diltiazem 125 mg/125 ml Nss [Cardizem] 125 mg in 125 ml IV PER PROTOCOL
Initial dose in mg/hr, then titrate:: 5
Titrate to keep:: Heart rate 80-100 bpm
Titrate by mg/hr:: 5 mg/hr
Frequency of titrations (minutes):: 15
Maximum dose in mg/hr:: 15
03/12/24 17:31
0.9% Sodium Chloride 500 ml [Nss] 500 ml IV BOLUS
03/12/24 20:51
Admit/Transfer Patient As Directed
Co-Sign Provider:
Level of Care: Inpatient admission
Assign to:: Telemetry
Physician / Group: chelsea
Diagnosis: afib rvr
Reason for Telemetry: Arrhythmia
Date to Stop Telemetry: 03/15/24
Time to Stop Telemetry: 11:00
Reason for Hospitalization: afib rvr
Expected length of stay greater than two midnights?: Yes
ELOS- Estimated Length of Stay in days: 2
I certify the patient meets the requirements for IP care: Yes
PRN Pain Medication Management As Directed
May give lesser potent ordered pain med per pt: Yes
preference::
Protocol:: Medication orders for pain may be administered in a
manner that supports deferring to patient preference
when the pt is:
- Requesting an ordered lesser potent pain medication.
Least to most potent pain medications are defined
as: acetaminophen < NSAID < tramadol < opioids
(morphine, oxycodone, hydromorphone).
- Requesting a lesser dose of the same medication IF
ORDERED.
- Requesting a less intrusive route of administration
if both routes are prescribed by the provider (PO <
IV).
03/12/24 20:52
Code Status As Directed
Resuscitation Status: Full Code
03/12/24 20:58
CR Chest - 2 Views Urgent
Comment:
Reason For Exam: cough
03/12/24 21:06
COVID-19 Antigen Urgent
Source: Nasal Swab
Influenza A+B Rapid Molecular Urgent
ROBERTO Source: Nasal Swab
Specimen Description:
03/15/24 11:00
DC Protocol for Telemetry ONCE
Abnormal Lab Results
03/12/24 03/12/24
12:15 16:44
WBC 13.8 H 10^3/uL
(4.8-10.8)
MCHC 32.3 L g/dL
(33.0-37.0)
MPV 10.8 H fL
(7.4-10.4)
Abs Immat Gran (auto) 0.1 H 10^3/uL
(0-0.05)
Absolute Neuts (auto) 8.4 H 10^3/uL
(1.4-6.5)
Absolute Lymphs (auto) 4.4 H 10^3/uL
(1.2-3.4)
Absolute Monos (auto) 0.8 H 10^3/uL
(0.1-0.6)
PT 19.6 H Sec
(11.4-14.6)
Sodium 134 L mmol/L
(135-145)
Carbon Dioxide 20 L mmol/L
(22-30)
BUN 52 H mg/dl
(7-17)
Creatinine 2.0 H mg/dL
(0.6-1.0)
Glucose 284 H mg/dl
(70-99)
AST 49 H U/L
(14-36)
ALT 75 H U/L
(0-35)
Alkaline Phosphatase 135 H U/L
(38-126)
POC Glucose 227 H mg/dl
(70-99)
03/12/24 12:15
03/12/24 12:15
Vital Signs
Initial and Last Documented VS:
Initial Vital Signs
Temp Pulse Resp BP Pulse Ox
97.5 F 121 20 100/74 97
03/12/24 12:02 03/12/24 12:02 03/12/24 12:02 03/12/24 12:02 03/12/24 12:02
Last Documented Vital Signs
Temp Pulse Resp BP Pulse Ox
98.1 F 115 19 129/76 97
03/12/24 21:23 03/12/24 22:17 03/12/24 22:17 03/12/24 22:17 03/12/24 21:12
<Jorgito Meadows MD - Last Filed: 03/12/24 22:45>
MDM/Problems Addressed
MDM/Problems Addressed:
Cardizem bolus and infusion provided upon initial evaluation, with improved heart rate. Unfortunately, patient does remain rate controlled atrial fibrillation rhythm. Discussed with on-call [employer], Dr. Kinney. In light of patient's return
visit to ED within 1 week with symptoms, thus recommend offering cardioversion to the patient. However, if patient feels comfortable going home and discusses an outpatient with [employer] on Wednesday, feels that is reasonable plan as well.
After discussion with patient and her daughter, decision made to discharge patient home without cardioversion at this time, as previous cardioversion did not prevent patient from going back in atrial fibrillation rhythm. As such, patient will be
discharged home at this time, with recommendation to increase carvedilol to 25 mg twice daily, from her 12.5 mg twice daily dose.
<Jorgito Meadows MD - Last Filed: 03/12/24 22:45>
*Critical Care Note
Total Time (30-74mins, 75-104mins- exclusive of procedures): 30 min
<Dane Yoon DO - Last Filed: 03/12/24 22:40>
Update Note
Update Note:
Patient was to be discharged after evaluation from earlier in felt persistently lightheaded. Given IV fluids again but her symptoms persisted and she does not feel comfortable going home. Is in A-fib and the rate to vary from 80s to 110.
Certainly improved but I do suspect maybe her symptoms are related. Otherwise she is well-appearing. Admit/obs
ED Attending Note
<Jorgito Meadows MD - Last Filed: 03/12/24 22:45>
-
Portions of this chart may have been created with voice recognition software.� Occasional wrong word or��sound alike� substitutions may have occurred due to the inherent limitations of voice recognition software.
Discharge Plan
Departure
Patient Disposition: Admit
Date of Disposition: 03/12/24
Time of Disposition: 15:47
Admit to: Telemetry
Presentation/result/management discussed w/ accepting MD/DO: Hospitalist
Patient with high blood pressure during this ER visit?: Yes
Condition: Good
Discharge Problem:
Atrial fibrillation with rapid ventricular response
Interventions
Interventions:
*Risk Screen - Suicide Last Done: 03/12/24 12:02
*General Assessment Last Done: 03/12/24 12:02
*Neglect/Abuse Screening Last Done: 03/12/24 12:02
ED- Fall Risk Assessment Last Done: 03/12/24 21:23
*ED COVID-19 Vaccine History Last Done: 03/12/24 13:00
ED- Cardiac Assessment Last Done: 03/12/24 21:23
ED- Pulmonary Assessment Last Done: 03/12/24 21:23
[2024-03-12 14:25] LABS: TSH Reflex To Free T4 1.13 uIU/ml (0.47-4.68)
[2024-03-12 16:46] LABS: Glucose - Point of Care 227 mg/dl (70-99)
--- NOTE | 2024-03-12 20:59 | HPS.HSE ---
Family Physician
-
Family Physician: Susie Jarquin PA-C
Chief Complaint
-
dizziness
History of Present Illness
83-year-old female past medical history of paroxysmal atrial fibrillation on Eliquis, CAD status post LAD stent, hypertension, hypercholesteremia, diabetes, hypothyroidism, CKD, presenting with 2 days of intermittent lightheadedness when standing
up. She has cardio mobile jaya which told her she was in atrial fibrillation. She denies any chest pain or palpitations. She denies syncope. She has been having slight cough for the past several days. Denies sore throat or runny nose. Denies
sick contacts. Denies nausea vomiting or diarrhea. No swelling or weight gain.
She denies smoking or alcohol use.
Medical History
Past Medical History
Past Medical History: Reports Other (paroxysmal atrial fibrillation on Eliquis, CAD status post LAD stent, hypertension, hypercholesteremia, diabetes, hypothyroidism, CKD)
Past Surgical History: Reports Other ( Cardiac (Cath LAD stent))
Social History
Tobacco: Non-smoker
Alcohol: None
Drug: None
Family History
Family History: Not pertinent
Allergies / Home Medications
Allergies reflects when Allergies were last updated in [facility].
Home Medications with original date entered in [facility]
Allergy/Medication List:
Allergies
Allergy/AdvReac Type Severity Reaction Status Date / Time
amiodarone Allergy Itching Verified 03/12/24 12:12
semaglutide [From Ozempic] Allergy Itching Verified 03/12/24 12:12
Home Medications
ascorbic acid (vitamin C) 250 mg tablet 250 mg PO DAILY 01/08/18
cyanocobalamin (vitamin B-12) 1,000 mcg tablet 1,000 mcg PO DAILY 01/08/18
cholecalciferol (vitamin D3) 25 mcg (1,000 unit) tablet 25 mcg PO DAILY 01/14/21
rosuvastatin 10 mg tablet 10 mg PO HS 01/14/21
insulin glargine 100 unit/mL (3 mL) subcutaneous pen (Lantus Solostar U-100 Insulin) 11 unit SC HS 12/16/21
levothyroxine 75 mcg tablet 75 mcg PO DAILY 12/16/21
lidocaine 4 % topical patch (Salonpas (lidocaine)) 1 patch topical DAILYPRN PRN neck pain 12/17/21
carvedilol 12.5 mg tablet 12.5 mg PO BID Blood pressure 30 days #60 tabs 12/20/21
apixaban 2.5 mg tablet (Eliquis) 2.5 mg PO BID 03/30/22
insulin aspart U-100 100 unit/mL (3 mL) subcutaneous pen (Novolog FlexPen U-100 Insulin aspart) 5 units SC AC 04/22/23
acetaminophen 650 mg tablet,extended release 1,300 mg PO DAILYPRN PRN mild pain 03/12/24
Review of Systems
-
History Source: Patient
A 12 point ROS was completed and negative except as noted: Yes
Constitutional: Reports No Symptoms
EENT: Reports No Symptoms
Respiratory: Reports See HPI
Cardiac: Reports See HPI
Abdomen/GI: Reports No Symptoms
: Reports No Symptoms
Musculoskeletal: Reports No Symptoms
Skin: Reports No Symptoms
Neurological: Reports No Symptoms
Endocrine: Reports No Symptoms
Hematologic/Lymphatic: Reports No Symptoms
Psych: Reports No Symptoms
Physical Exam
Vital Signs
Vital Signs
Temp Pulse Resp BP Pulse Ox
97.5 F 65 16 110/56 98
03/12/24 12:02 03/12/24 15:00 03/12/24 15:00 03/12/24 15:20 03/12/24 14:45
Physical Exam
General: Well Developed, Well Nourished and No Apparent Distress
HEENT: NormoCephalic, Moist mucous membranes and Atraumatic
Respiratory: Clear
Cardiac: S1/S2, Irregular Rhythm and Tachycardia; No Murmur or Rub
GI: Soft, Non Tender, Non Distended and Normal Bowel Sounds; No Organomegaly
Rectal: Deferred by Provider
Musculoskeletal: No Clubbing, No Cyanosis and No Edema
Skin: No Rash
Neuro: Nonfocal/grossly intact
Laboratory Results
-
03/12/24 12:15
03/12/24 12:15
Laboratory Results
PT 19.6 Sec (11.4-14.6) H 03/12/24 12:15
INR 1.64 03/12/24 12:15
Total Bilirubin 0.5 mg/dl (0.2-1.3) 03/12/24 12:15
AST 49 U/L (14-36) H 03/12/24 12:15
ALT 75 U/L (0-35) H 03/12/24 12:15
Alkaline Phosphatase 135 U/L (38-126) H 03/12/24 12:15
Data Reviewed
-
Lab Data: Labs Reviewed by me
Old Records: Reviewed
Impression/Plan
-
IMPRESSION:
PLAN:
# Symptomatic atrial fibrillation with RVR
-Check chest x-ray
-Check COVID and influenza
-IV fluids given with improvement in heart rate
-Cardizem drip was going to be started for heart rate has improved
-Increase Coreg from 12.5 mg twice daily to 25 mg twice daily
-Continue Eliquis
-Cardiology consulted
# Hyperglycemia
#Type 2 diabetes
-Continue Lantus 11 units
-Continue 5 units before meals NovoLog
-Continue insulin sliding scale
CAD status post LAD stent
-Continue Coreg
Chronic kidney disease
-Renal function close to baseline
Essential hypertension
Hypercholesteremia
-Continue statin
Hypothyroidism
-Continue levothyroxine
Full code
DVT prophylaxis�Eliquis
Cardiac/diabetic diet
[2024-03-12 21:37] LABS: COVID-19 Antigen Negative (Negative)
[2024-03-12 22:22] LABS: Glucose - Point of Care 189 mg/dl (70-99)
--- NOTE | 2024-03-12 22:24 | EDRN ---
Pt's HR dropping into 80's and 90's then back into low 100's Afib
--- NOTE | 2024-03-12 22:34 | EDRN ---
Report was sent to CVICU and verbal report called - pt is a telemetry admission going to CVICU as overflow
[2024-03-13] VITALS (23 sets, daily range): BP systolic 86–136; BP diastolic 50–120; PULSE 73–97; BMI 24.3
--- NOTE | 2024-03-13 | PTCARENOTE ---
Received pt from ED at 2330, dx of Afib RVR. pt was AAOx4, denies pain, walks with 4-point cane, CC of lightheadedness. Afib on monitor, VSS. heart sounds audible, radial and DP pulses palpable, no edema noted. lungs clear, diminished at b/l bases,
spo2 96% on RA. +BS x4 quadrants, abdomen soft non tender. pt states she has stress incontinence, pericare provided then pure wick placed, pt has hx of CKD. pt has open wound on right buttock on admission, wound was cleaned with NSS and pat dried,
optifoam place, wound care consult requested. PIV maintained. Cardizem gtt infusing. Pt answered all admission questions, medications review. call vasquez within reach. will continue to monitor.
[2024-03-13 00:03] LABS: Glucose - Point of Care 224 mg/dl (70-99)
[2024-03-13] MEDS: LANTUS 0.11 UNITS SC (00:19)
[2024-03-13] MEDS: CRESTOR 10 MG PO (00:20)
--- NOTE | 2024-03-13 01:45 | PTCARENOTE ---
Cardizem gtt stopped due to frequent pauses and HR dropping to 56. CVNP aware. BP stable.
--- NOTE | 2024-03-13 02:50 | PTCARENOTE ---
Cardizem gtt resumed due to HR of 101. See med titration.
--- NOTE | 2024-03-13 04:00 | PTCARENOTE ---
pt resting comfortably in bed. Afib on monitor. Cardizem infussing, per protocol. labs drawn and sent.
[2024-03-13 04:23] LABS: % Basophils 0.3 % (0-2); % Eosinophils 1.1 % (0-6); % Immature Granulocytes 0.4 % (0-0.5); % Lymphocytes 44.5 % (20.5-51.1); % Monocytes 6.8 % (1.7-9.3); % Neutrophils 46.9 % (42.2-75.2); Absolute Eosinophils 0.1 10^3/uL (0-0.7); Absolute Lymphocytes 5.1 10^3/uL (1.2-3.4); Absolute Monocytes 0.8 10^3/uL (0.1-0.6); Absolute Neutrophils 5.3 10^3/uL (1.4-6.5); Hematocrit 35.3 % (37.0-47.0); Hemoglobin 11.7 g/dL (12.0-16.0); Mean Corp Hgb Conc. 33.1 g/dL (33.0-37.0); Mean Corpuscular Hgb 29.6 pg (27.0-31.0); Mean Corpuscular Volume 89.4 fL (81.0-99.0); Mean Platelet Volume 10.9 fL (7.4-10.4); Nucleated Red Blood Cells % 0.2 %; Platelet Count 146 10^3/uL (130-400); Red Blood Cell Count 3.95 10^6/uL (4.20-5.40); Red Cell Dist. Width 14.5 % (11.5-14.5); White Blood Cell Count 11.4 10^3/uL (4.8-10.8)
[2024-03-13 04:49] LABS: ALT (SGPT) 118 U/L (0-35); AST (SGOT) 77 U/L (14-36); Albumin 3.3 g/dl (3.5-5.0); Alkaline Phosphatase 122 U/L (38-126); Blood Urea Nitrogen 47 mg/dl (7-17); Calcium 8.7 mg/dl (8.4-10.2); Carbon Dioxide 15 mmol/L (22-30); Chloride 110 mmol/L (98-107); Estimated Creatinine Clearance 24 ml/min; Glucose 227 mg/dl (70-99); Potassium 4.2 mmol/L (3.5-5.1); Sodium 135 mmol/L (135-145); Total Bilirubin 0.6 mg/dl (0.2-1.3); Total Protein 5.7 g/dl (6.3-8.2); eGFR 29.57
[2024-03-13] MEDS: SYNTHROID 75 MCG PO (06:16)
--- NOTE | 2024-03-13 07:35 | CON.CAR ---
Addendum entered and electronically signed by Cam Read MD 03/13/24 09:44:
I saw and examined the patient.
The FIRST ASSISTANT or PA's note was reviewed and I agree with the note.
Comment: General: Well developed, well nourished in NAD.
Neck: Supple, no JVD, HJR, carotids +2 B/L, no bruits bilaterally.
Heart: Non displaced PMI, irregular, no murmurs, No S3, S4, no rubs.
Lungs: Clear to auscultation bilaterally, no wheeze, rhonchi, rubs bilaterally,
normal expiratory phase.
Abdomen: Normal bowel sounds, soft, non-tender, non-distended.
Extremities: No clubbing, cyanosis or edema bilaterally.
Neuro: Grossly nonfocal, awake, alert and oriented x3.
Yesenia has history of A-fib, CAD with prior PCI, improved cardiomyopathy, CKD 4, diabetes, hypertension, prior TIA. She presented with lightheadedness. She is found to be in A-fib. Of note she had called our office with A-fib recently and is
scheduled to see EP to discuss ablation on 03/14/2024. In the past she has been asymptomatic with A-fib.
Rate is controlled currently on Cardizem. Will DC IV Cardizem and increase carvedilol dose to 25 mg p.o. twice daily. If heart rate is controlled she will be stable for discharge.
There are very few options for her for her A-fib except ablation. Of note she is not a candidate for sotalol or Tikosyn given renal insufficiency. She has been intolerant of amiodarone in the past as well.
Original Note:
Consultation
Consultation Request
Date/Time Consultation Requested: 03/13/2024
Date/Time Consultation Performed: 03/13/2024
Requesting Provider: Dr. Garcia
Performing Provider: Ada Acevedo PA-C for Dr. Read
Reason for Consultation: Afib w/ RVR
Medical History
-
History of Present Illness:
HPI: Snow is an 83 year old female with PMH of paroxysmal atrial fibrillation, CAD w/ prior PCI, improved CM, CKD 4, DM2, HTN, HLD, and prior TIA. Presented to [facility] for evaluation of lightheadedness and recurrent afib. She was seen in [facility] for a
few days ago on 03/07 for evaluation of similar symptoms. Heart rates were well controlled on 03/07 and she was arranged for followup appt in the cardiology office. She continued with lightheadedness and came back to the ER for re-evaluation. HR
elevated in the 120s on arrival 03/12. She was admitted and started on cardizem gtt overnight. HRs improved this AM and she feels well while resting in bed. Carvedilol dose has been increased to 25mg BID with first dose to start this AM. Labwork
unremarkable with normal electrolytes and normal TSH. BP stable. Denies any chest pain, palpitations, or SOB.
PMH:
Paroxysmal Afib
Chronic Eliquis OAC
CAD
s/p 3 mm Xience to prox LAD and bifurcation PTCA first diagonal and PTCA of OM1 superior and Inferior branches 02/2008
Improved CM
CKD 4
DM 2
HTN
Hyperlipidemia
h/o CVA 2013
Past Medical History
Past Medical History: Other (in HPI)
Past Surgical History: Cardiac (PCI)
Social History
Tobacco: Non-Smoker
Alcohol: None
Drug: None
Personal:
Living: With Family
Family History
Family History: CAD and Other (COPD)
Allergies / Home Medications
Allergy/AdvReac Type Severity Reaction Status Date / Time
amiodarone Allergy Itching Verified 03/12/24 12:12
semaglutide [From Ozempic] Allergy Itching Verified 03/12/24 12:12
�Medication �Instructions �Recorded �Confirmed �Type
ascorbic acid (vitamin C) 250 mg 250 mg PO DAILY 01/08/18 03/12/24 History
tablet
cyanocobalamin (vitamin B-12) 1,000 mcg PO DAILY 01/08/18 03/12/24 History
1,000 mcg tablet
cholecalciferol (vitamin D3) 25 25 mcg PO DAILY 01/14/21 03/12/24 History
mcg (1,000 unit) tablet
rosuvastatin 10 mg tablet 10 mg PO HS 01/14/21 03/12/24 History
insulin glargine 100 unit/mL (3 11 unit SC HS 12/16/21 03/12/24 History
mL) subcutaneous pen (Lantus
Solostar U-100 Insulin)
levothyroxine 75 mcg tablet 75 mcg PO DAILY 12/16/21 03/12/24 History
lidocaine 4 % topical patch 1 patch topical DAILYPRN PRN neck 12/17/21 03/12/24 History
(Salonpas (lidocaine)) pain
carvedilol 12.5 mg tablet 12.5 mg PO BID Blood pressure 30 12/20/21 03/12/24 Rx
days #60 tabs
apixaban 2.5 mg tablet (Eliquis) 2.5 mg PO BID 03/30/22 03/12/24 History
insulin aspart U-100 100 unit/mL 5 units SC AC 04/22/23 03/12/24 History
(3 mL) subcutaneous pen (Novolog
FlexPen U-100 Insulin aspart)
acetaminophen 650 mg 1,300 mg PO DAILYPRN PRN mild pain 03/12/24 03/12/24 History
tablet,extended release
Review of Systems
-
History Source: Patient
All other systems: Negative unless noted
Physical Exam
Vital Signs
Temp Pulse Resp BP Pulse Ox
97.8 F 79 20 107/58 95
03/13/24 04:00 03/13/24 07:30 03/13/24 07:30 03/13/24 07:00 03/13/24 07:30
Lab Results
03/13/24 04:05
03/13/24 04:05
Physical Exam
General: Well Developed, Well Nourished and No Apparent Distress
HEENT: Normocephalic, Anicteric and Moist Mucous Membranes
Respiratory: Clear and Non Labored Respirations
Cardiac: S1/S2 and Irregular Rhythm
Musculoskeletal: No Clubbing, No Cyanosis and No Edema
Skin: Warm and Dry
Neuro: AO x 3 and Nonfocal/Grossly Intact
Psych: Calm
Impression / Plan
-
PCP: Susie Jarquin PA-C
Project Management Instructor: Dr. Read
Impression:
Presented with lightheadedness
Paroxysmal Afib w/ RVR
Chronic Eliquis OAC
CAD
s/p 3 mm Xience to prox LAD and bifurcation PTCA first diagonal and PTCA of OM1 superior and Inferior branches 02/2008
Improved CM
CKD 4
DM 2
HTN
Hyperlipidemia
h/o CVA 2013
Echo 04/01/2022: EF 55%, mild cLVH, stage II diastolic dysfunction, mild MAC, mild to moderate MR, mild AI
Plan:
-Presented with lightheadedness. Recently seen in 03/07 with recurrent afib, but was rate controlled, so she was discharged and has follow up to discuss options for afib.
-She continued with lightheadedness and came back to [facility] 03/12 and remained in Afib, however rates now were elevated in the 120s.
-ECG reviewed, Afib w/ HR 123 bpm.
-Admitted and started on cardizem gtt overnight. Cardizem running @5, HRs improved, in the 60s to 70s currently. Stop cardizem gtt.
-Carvedilol dose increased to 25mg BID, 1st dose this AM.
-If HR improved and feeling well, would be ok for discharge today. No plan for CV at this time.
-She should follow up with EP tomorrow as scheduled to discuss possible ablation.
-Continue Eliquis 2.5mg BID.
-TSH stable at 1.13, continue levothyroxine.
-Follow up arranged.
HPI: Snow is an 83 year old female with PMH of paroxysmal atrial fibrillation, CAD w/ prior PCI, improved CM, CKD 4, DM2, HTN, HLD, and prior TIA. Presented to [facility] for evaluation of lightheadedness and recurrent afib. She was seen in [facility] for a
few days ago on 03/07 for evaluation of similar symptoms. Heart rates were well controlled on 03/07 and she was arranged for followup appt in the cardiology office. She continued with lightheadedness and came back to the ER for re-evaluation. HR
elevated in the 120s on arrival 03/12. She was admitted and started on cardizem gtt overnight. HRs improved this AM and she feels well while resting in bed. Carvedilol dose has been increased to 25mg BID with first dose to start this AM. Labwork
unremarkable with normal electrolytes and normal TSH. BP stable. Denies any chest pain, palpitations, or SOB.
Data Reviewed
-
EKG: Tracing Personally Visualized and interpreted
Labs: Labs Reviewed by me
Old Records: Reviewed
[2024-03-13 07:40] LABS: Glucose - Point of Care 184 mg/dl (70-99)
[2024-03-13] MEDS: NOVOLOG FLEXPEN SC (07:42)
[2024-03-13 08:32] LABS: Glycohemoglobin (HgbA1c) 9.6 % (4.0-5.6)
--- NOTE | 2024-03-13 09:12 | PTCARENOTE ---
Patient received from slot shift supervisor RN; AAOx3, responds spontaneously to RN and follows commands; VSS; Afib on monitor; Lungs clear; SpO2 92-98% on RA; Patient complains of dizziness/lightheadedness with positional changes and ambulation; +2 DP and
radial pulses; Incontinent of urine - Purewick external catheter draining clear, yellow urine; PIVx1 #22 right wrist; IV Cardizem drip infusing - see nursing flowsheets for further details; See nursing documentation for further information
--- NOTE | 2024-03-13 09:36 | W.PN.HOSP.TC ---
Today's Communication/Plan
-
Beta-gina. Cardiology eval. Discharge planning
Assessment / Plan
Assessment / Plan
Physical exam:
General: Well Developed, Well Nourished and No Apparent Distress
HEENT: Normocephalic, Atraumatic and Moist Mucous Membranes
Respiratory: Clear to Auscultation; Negative Wheezes, Rales or Rhonchi
Cardiac: Irregular rate and rhythm and S1/S2
GI: Soft, Nontender and Nondistended
Musculoskeletal: No Clubbing, No Cyanosis and No Edema
Neuro: Awake, Alert and Oriented, no gross neurological deficits.
Psych: Calm
A/P:
# Symptomatic atrial fibrillation with RVR
-Check chest x-ray
-Check COVID and influenza
-IV fluids given with improvement in heart rate
-Cardizem drip was going to be started for heart rate has improved
-Increase Coreg from 12.5 mg twice daily to 25 mg twice daily
-Continue Eliquis
-Cardiology consulted--> discussed with cardiology today on 03/13 and they cleared her for discharge. Cardiology wants her to keep her appointment tomorrow with EP.
# Hyperglycemia
#Type 2 diabetes
-Continue Lantus 11 units
-Continue 5 units before meals NovoLog
-Continue insulin sliding scale
-She does follow-up with pit inspector as outpatient and I encouraged her to move her appointment earlier or keep her appointment as outpatient.
CAD status post LAD stent
-Continue Coreg
Chronic kidney disease
-Renal function close to baseline
Essential hypertension
Hypercholesteremia
-Continue statin
Hypothyroidism
-Continue levothyroxine
Full code
DVT prophylaxis�Eliquis
Cardiac/diabetic diet
Anticipated Discharge: Today
Subjective/Interval History
-
Date of Service: March 13, 2024
Patient with some lightheadedness. A-fib better controlled. No chest pain or shortness of breath.
Objective Data
-
Labs:
Laboratory Results
03/13/24
04:05
WBC 11.4 H
Hgb 11.7 L
Hct 35.3 L
Plt Count 146
Sodium 135
Potassium 4.2
Chloride 110 H
Carbon Dioxide 15 L
BUN 47 H
Creatinine 1.7 H
Glucose 227 H
Calcium 8.7
Total Bilirubin 0.6
AST 77 H
ALT 118 H
Alkaline Phosphatase 122
Vital Signs:
Vital Signs
Temp Pulse Resp BP Pulse Ox
98.0 F 79 17 107/58 94
03/13/24 07:44 03/13/24 07:30 03/13/24 07:44 03/13/24 07:00 03/13/24 07:44
I&O
03/12/24 03/13/24 03/14/24
06:59 06:59 06:59
Output Total 100 / 100
Balance -100 / -100
[2024-03-13] MEDS: NOVOLOG FLEXPEN-LOW RESISTANCE 1 UNITS SC (10:01)
[2024-03-13] MEDS: NOVOLOG FLEXPEN 5 UNITS SC ×3 (10:01→16:20)
[2024-03-13] MEDS: COREG 25 MG PO (10:02)
[2024-03-13] MEDS: VITAMIN B-12 1000 MCG PO (10:02)
[2024-03-13] MEDS: VITAMIN D3 (cholecalciferol) 25 MCG PO (10:02)
[2024-03-13] MEDS: VITAMIN C 250 MG PO (10:02)
[2024-03-13] MEDS: ELIQUIS 2.5 MG PO (10:02)
--- NOTE | 2024-03-13 11:04 | CM ---
Addendum entered by Martha Pierre RN 03/13/24 15:47:
Patient is not a CT Surgical Patient. Plan is for the patient to return home with VN. [facility] Patient is agreeable. Plan is for the patient to return home with CT Transitional RN.
Original Note:
Chart reviewed. Patient is independent of ADLS, lives with her who she cares for in a 2 STH, total of 3 CHANDLER, 0 DME. Plan is for the patient to return home with CT Transitional RN. CM to follow
[2024-03-13 12:31] LABS: Glucose - Point of Care 261 mg/dl (70-99)
[2024-03-13] MEDS: NOVOLOG FLEXPEN-LOW RESISTANCE 3 UNITS SC ×2 (12:32→16:21)
--- NOTE | 2024-03-13 13:34 | PTCARENOTE ---
Cardizem drip off since 1044; HR controlled under 100 throughout shift; Orthostatic vitals done at bedside - 123/64 (supine), 108/72 (sitting), and 100/50 (standing); Patient felt lightheaded with standing but stayed OOB in chair since and states
she 'feels fine.' MARCUS Acevedo notified and compression stockings ordered and applied
--- NOTE | 2024-03-13 14:57 | W.DCSUMMARY ---
Discharge Summary
Discharge Data
Date of Admission: 03/12/24
Date of Discharge: 03/13/24
-
Pending Results: No
Hospital Course
Patient 83 years old female history of A-fib, CAD, CKD stage IV, hypertension, diabetes mellitus, TIA, came into the hospital lightheadedness and found to be in A-fib. Cardiology consulted. Her carvedilol was increased to 25 mg twice a day. She
was started on IV Cardizem drip and this was discontinued later on. Cardiology consulted. Her heart rate has improved. Cardiology felt that she is medically stable for discharge and they would like her to keep her appointment with the EP
cardiology tomorrow to discuss further options. She actually improved earlier than expected and she can go home today. She participated with PT and OT. No other events were noticed throughout this hospital stay.
Discharge duration: 35 minutes
Discharge Plan
-
Patient Disposition: Home with Home Care
Discharge Diagnosis/Procedures: Atrial fibrillation with rapid ventricular response. Chronic kidney disease stage IV.
Diet: Low Cholesterol
Activity: As tolerated
Blood Work: Please PCP to order CBC, BMP within 1 week
Activity Restrictions/Additional Instructions:
Wound Care Instructions
Sacral/buttocks ulcer-clean with saline or soap and water, silicone border foam, change every 3 days and as needed for loosened dressing. If foam ineffective, apply barrier ointment (i.e. Desitin or Calazime) twice a day instead.
Off load sacral/buttocks with turning and repositioning.
Pressure redistributing chair cushion (i.e. Air chair cushion).
Elevate heels off bed with pillow/s.
Follow up at wound care center, call for an appointment.
Referrals:
[facility]iting [facility] [Outside]
Susie Jarquin PA-C [Family Provider] - in less than 1 week
Yesenia Jensen CRNP [Specified Professional Personl] - 03/14/24 8:00 am (You have a follow up visit with Dr. Read's [employer] MARKETING SPECIALIST, Yesenia Jensen, at the [facility]. Please call with questions. )
Prescriptions:
New
carvedilol 12.5 mg Tablet
25 mg PO BID 30 Days Qty: 120 0RF
Continued
cyanocobalamin (vitamin B-12) 1,000 MCG tablet
1,000 mcg PO DAILY
ascorbic acid (vitamin C) 250 MG tablet
250 mg PO DAILY
rosuvastatin 10 MG tablet
10 mg PO HS
cholecalciferol (vitamin D3) 1,000 UNITS tablet
25 mcg PO DAILY
levothyroxine 75 mcg Tablet
75 mcg PO DAILY
insulin glargine [Lantus Solostar U-100 Insulin] 100 unit/mL (3 mL) insulin pen
11 unit SC HS
lidocaine [Salonpas (lidocaine)] 4 % Adhesive Patch,Medicated
1 patch TOPICAL DAILYPRN PRN (Reason: neck pain)
Eliquis 2.5 mg tablet
2.5 mg PO BID
insulin aspart U-100 [Novolog FlexPen U-100 Insulin] 100 unit/mL (3 mL) insulin pen
5 units SC AC
acetaminophen 650 mg Tablet Extended Release
1,300 mg PO DAILYPRN PRN (Reason: mild pain)
Discontinued
carvedilol 12.5 mg Tablet
12.5 mg PO BID 30 Days Qty: 60 0RF
Discharge Orders:
Discharge Patient (As Directed); Ordered 03/13/24
Ordered By: Eric Suarez
Care Plan Goals
Care Plan Goals:
Problem: Readiness for enhanced knowledge related to diagnosis and treatment plan
Goal: Understand your diagnosis and treatment plan needs, including medications if applicable.
Instructions: Know your diagnosis, underlying causes and treatment plan options, including medications if applicable. Consult with your health care team to learn about your diagnosis and treatment plan, including medications if applicable.
Discharge Date and Time
Discharge Date/Time: 03/13/24 18:30
Print Language: LATVIAN
--- NOTE | 2024-03-13 15:34 | WOUNDNOTE ---
WO RN note: Patient admitted with a fib. Patient lives with her who has brain cancer.
See H&P for complete history.
PMH: a fib (Carleen), CAD with stent, HTN, DM, CKD4, CVA 2013.
Wound Location and type/assessment: Patient admitted with: R sacral/buttocks small stage 2 pressure injury. Fading bruise upper sacrum/lower back.
Appetite: good.
Pressure redistribution devices in place: Centrella Max. Air chair cushion. Patient uses a cane to stand/ambulate.
Plan: Silicone border foam maintained on L sacral/buttocks. Instructed patient pressure injury prevention measures.
Will confirm orders with hospitalist.
Updated care plan and will follow as needed.
Note to case management requested for discharge: VN if patient accepts. Spoke with MARQUES Thomas.
Recommend follow up at wound care center upon discharge.
[2024-03-13 16:20] LABS: Glucose - Point of Care 280 mg/dl (70-99)
--- NOTE | 2024-03-13 17:04 | PTCARENOTE ---
Patient's BP continues to drop with positional changes and ambulation; She states she feels 'a little lightheaded' when standing but that it has improved since this AM; She states she's not quite at her baseline in terms of getting around but one of
her daughters will be able to help take care of her tonight; HR 80's-110's and up to 130 with ambulation; Patient remains in afib; MD Suarez notified and states to make Cardiology aware; MARCUS Acevedo notified - states if patient feels ok and
has someone to help at home, ok to discharge. Patient educated to stay hydrated at home and to take her time with positional changes as per Cardiology recommendations; Patient states she wants to go home - will proceed with discharge and awaiting
for daughter to arrive
--- NOTE | 2024-03-13 18:30 | PTCARENOTE ---
Patient discharged home; Patient states full understanding of discharge instructions and has no further questions at this time; IV access and telemetry pack removed; Patient belongings taken with patient; Patient transported by wheelchair to
daughter's car
== END 2024-03-13 18:30 | disposition home health service (06) | DRG 309 ==
LOC: CVICU 22:16
PROVIDERS: ADMITTING PHYSICIAN Hospitalist; ATTENDING PHYSICIAN Hospitalist; EMERGENCY PHYSICIAN Emergency Medicine; FAMILY PHYSICIAN Student in an Organized Health Care Education/Training Program; OTHER PHYSICIAN Internal Medicine Cardiovascular Disease
DX: I48.0 Paroxysmal atrial fibrillation (principal); N18.4 Chronic kidney disease, stage 4 (severe); I25.10 Atherosclerotic heart disease of native coronary artery without angina pectoris; I12.9 Hypertensive chronic kidney disease with stage 1 through stage 4 chronic kidney disease, or unspecified chronic kidney disease; E11.22 Type 2 diabetes mellitus with diabetic chronic kidney disease; E78.00 Pure hypercholesterolemia, unspecified; E03.9 Hypothyroidism, unspecified; E11.65 Type 2 diabetes mellitus with hyperglycemia; I42.9 Cardiomyopathy, unspecified; Z11.52 Encounter for screening for COVID-19; Z79.01 Long term (current) use of anticoagulants; Z79.4 Long term (current) use of insulin; Z79.899 Other long term (current) drug therapy; Z82.49 Family history of ischemic heart disease and other diseases of the circulatory system; Z86.73 Personal history of transient ischemic attack (TIA), and cerebral infarction without residual deficits; Z95.5 Presence of coronary angioplasty implant and graft
CPT/HCPCS: 71046; 80053; 82962; 83036; 83735; 84443; 85025; 85610; 87502; 87811; 93005; 96361; 96374; 99291

== ENCOUNTER 2024-03-20 10:18 | Inpatient (IN) | payer MEDICARE, BC, SELFPAY ==
[2024-03-16] VITALS (11 sets, daily range): BP systolic 84–134; BP diastolic 57–89; BMI 24.3; BMI 25.1
--- NOTE | 2024-03-16 18:41 | ED.GENMED ---
History of Present Illness
General
Chief Complaint: Fainting/Passed Out
Source: patient
Exam Limitations: none
Time Seen by Provider: 03/16/24 18:36
History of Present Illness
History of Present Illness:
See MDM
Past History
Past History
ED Past Medical History: Arrthythmia, CAD, HTN, Hypercholesterolemia, NIDDM and Hypothyroidism
ED Past Surgical History: Cardiac (Cath LAD stent)
Social History
Tobacco: Non-smoker
Alcohol: None
Drug: None
Personal:
Living: with family
Employment: Retired
Family History
Family History: CAD (MOM-[place] age 50)
Phy Exam
Physical Exam
Physical Exam:
See MDM
Course
Orders/Labs/Results
Orders:
Orders
03/16/24 18:40
Electrocardiogram (*1) Urgent
Reason for Study: Syncope
EKG- Treatment ONCE
03/16/24 19:00
Complete Blood Count/With Diff Urgent
Comprehensive Metabolic Panel Urgent
03/16/24 19:29
0.9% Sodium Chloride 1000 ml [Nss] 1,000 ml IV BOLUS
Diltiazem HCl [Cardizem] 15 mg IV NOW STA
Abnormal Lab Results
03/16/24
19:00
WBC 12.1 H 10^3/uL
(4.8-10.8)
MCHC 32.5 L g/dL
(33.0-37.0)
RDW 15.1 H %
(11.5-14.5)
Plt Count 127 L 10^3/uL
(130-400)
MPV 10.9 H fL
(7.4-10.4)
Absolute Neuts (auto) 7.0 H 10^3/uL
(1.4-6.5)
Absolute Lymphs (auto) 4.3 H 10^3/uL
(1.2-3.4)
Sodium 129 L mmol/L
(135-145)
Carbon Dioxide 19 L mmol/L
(22-30)
BUN 51 H mg/dl
(7-17)
Creatinine 1.9 H mg/dL
(0.6-1.0)
Glucose 267 H mg/dl
(70-99)
AST 117 H U/L
(14-36)
ALT 134 H U/L
(0-35)
Alkaline Phosphatase 186 H U/L
(38-126)
Total Protein 6.1 L g/dl
(6.3-8.2)
03/16/24 19:00
03/16/24 19:00
Vital Signs
Initial and Last Documented VS:
Initial Vital Signs
Temp Pulse Resp BP
97.6 F 120 17 119/84
03/16/24 18:38 03/16/24 18:38 03/16/24 18:38 03/16/24 18:38
Last Documented Vital Signs
Temp Pulse Resp BP Pulse Ox
97.6 F 121 17 132/73 96
03/16/24 18:38 03/16/24 19:58 03/16/24 19:00 03/16/24 19:58 03/16/24 19:00
MDM/Problems Addressed
Differential Diagnosis Includes:
HPI and MDM Narrative:
83-year-old female presenting for evaluation of unresponsive episode. Patient was at home sitting in a chair. She was drinking a can of soda. Apparently, she dropped a soda and had a blank stare and was minimally responsive for short moment.
Patient does not recall the episode. She states she feels tired right now but denies any other complaints. Patient has been to the emergency department twice recently for A-fib. She was recently admitted and she has ablation scheduled
Will continue to monitor on telemetry. There is concern for cardiogenic syncope. Will reassess after blood work
Physical exam
General: Well appearing and non-toxic
HEENT: protecting airway
Neck: appears supple
CV: No evidence of cyanosis. Irregular rhythm
Resp: No accessory muscle use
Abd: Non-distended
Extremities: No deformities. No leg edema
Neuro: alert. No focal deficit
Psych: Normal affect
Skin: Intact
Problems Addressed including Acute and Chronic Conditions affecting care:
1. Syncope
Acuity: acute
Prognosis: stable
Details: Potentially cardiogenic syncope versus TIA. Given no neurodeficits or headache, low utility in CT head. Will continue to monitor on telemetry
2. A-fib with RVR
Acuity: acute
Prognosis: unstable
Details: Patient given IV Cardizem
Updates
Given her dehydration, uncontrolled A-fib and syncope at rest, will admit
Differential Diagnosis (but not limited to): Cardiac arrhythmia, TIA
Testing considered: CT head but patient offers no complaints other than mild weakness. She has no focal deficits
Drug therapy (if applicable): OTC meds, please see d/c instruction regarding Rx drugs
Amount and/or Complexity of Data Reviewed
Clinical info obtained from: Patient
External data reviewed: N/A
Labs I independently reviewed (but not limited to): Hyperglycemia
Radiology: N/A
Pulse Ox: not hypoxic
EKG independently reviewed: N/A
Outreach Assistant: A-fib
Critical Care: N/A
Risk of Complication:
Social Determinants of health: Good social support
Discussed with other providers: N/A
Escalation of Care includes Admit/Obs: Given her dehydration, uncontrolled A-fib and syncope at rest, will admit
Occasional wrong word or 'sound a like' substitutions may have occurred due to the inherent limitations of voice recognition software. Read the chart carefully and recognize, using context, where substitutions have occurred.
*Critical Care Note
Total Time (30-74mins, 75-104mins- exclusive of procedures): Not Applicable
ED Attending Note
-
Portions of this chart may have been created with voice recognition software.� Occasional wrong word or��sound alike� substitutions may have occurred due to the inherent limitations of voice recognition software.
Discharge Plan
Departure
Patient Disposition: Admit
Date of Disposition: 03/16/24
Time of Disposition: 20:03
Admit to: Telemetry
Presentation/result/management discussed w/ accepting MD/DO: Hospitalist
Discharge Problem:
A-fib, Syncope
Prescriptions:
No Action
cyanocobalamin (vitamin B-12) 1,000 MCG tablet
1,000 mcg PO DAILY
ascorbic acid (vitamin C) 250 MG tablet
250 mg PO DAILY
rosuvastatin 10 MG tablet
10 mg PO HS
cholecalciferol (vitamin D3) 1,000 UNITS tablet
25 mcg PO DAILY
levothyroxine 75 mcg Tablet
75 mcg PO DAILY
insulin glargine [Lantus Solostar U-100 Insulin] 100 unit/mL (3 mL) insulin pen
11 unit SC HS
lidocaine [Salonpas (lidocaine)] 4 % Adhesive Patch,Medicated
1 patch TOPICAL DAILYPRN PRN (Reason: neck pain)
Eliquis 2.5 mg tablet
2.5 mg PO BID
insulin aspart U-100 [Novolog FlexPen U-100 Insulin] 100 unit/mL (3 mL) insulin pen
5 units SC AC
acetaminophen 650 mg Tablet Extended Release
1,300 mg PO DAILYPRN PRN (Reason: mild pain)
carvedilol 12.5 mg Tablet
25 mg PO BID 30 Days Qty: 120 0RF
Interventions
Interventions:
*Risk Screen - Suicide Last Done: 03/16/24 18:38
*General Assessment Last Done: 03/16/24 18:38
*Neglect/Abuse Screening Last Done: 03/16/24 18:38
ED- Fall Risk Assessment Last Done: 03/16/24 18:38
*ED COVID-19 Vaccine History Last Done: 03/16/24 18:38
ED- Cardiac Assessment Last Done: 03/16/24 18:48
ED- Neurological Assessment Last Done: 03/16/24 18:48
Discharge Date and Time
Print Language: [id number]
[2024-03-16 19:09] LABS: % Basophils 0.4 % (0-2); % Eosinophils 1.1 % (0-6); % Immature Granulocytes 0.3 % (0-0.5); % Lymphocytes 35.3 % (20.5-51.1); % Monocytes 5.2 % (1.7-9.3); % Neutrophils 57.7 % (42.2-75.2); Absolute Basophils 0.1 10^3/uL (0-0.2); Absolute Eosinophils 0.1 10^3/uL (0-0.7); Absolute Lymphocytes 4.3 10^3/uL (1.2-3.4); Absolute Monocytes 0.6 10^3/uL (0.1-0.6); Hematocrit 38.1 % (37.0-47.0); Hemoglobin 12.4 g/dL (12.0-16.0); Mean Corp Hgb Conc. 32.5 g/dL (33.0-37.0); Mean Corpuscular Hgb 29.4 pg (27.0-31.0); Mean Corpuscular Volume 90.3 fL (81.0-99.0); Mean Platelet Volume 10.9 fL (7.4-10.4); Nucleated Red Blood Cells % 0 %; Platelet Count 127 10^3/uL (130-400); Red Blood Cell Count 4.22 10^6/uL (4.20-5.40); Red Cell Dist. Width 15.1 % (11.5-14.5); White Blood Cell Count 12.1 10^3/uL (4.8-10.8)
[2024-03-16 19:23] LABS: ALT (SGPT) 134 U/L (0-35); AST (SGOT) 117 U/L (14-36); Albumin 3.9 g/dl (3.5-5.0); Alkaline Phosphatase 186 U/L (38-126); Blood Urea Nitrogen 51 mg/dl (7-17); Calcium 9.1 mg/dl (8.4-10.2); Carbon Dioxide 19 mmol/L (22-30); Chloride 101 mmol/L (98-107); Estimated Creatinine Clearance 22 ml/min; Glucose 267 mg/dl (70-99); Sodium 129 mmol/L (135-145); Total Bilirubin 0.7 mg/dl (0.2-1.3); Total Protein 6.1 g/dl (6.3-8.2); eGFR 25.88
[2024-03-16] MEDS: NSS 1000 IV ×2 (19:58→23:37)
[2024-03-16] MEDS: CARDIZEM 15 MG IV (19:58)
--- NOTE | 2024-03-16 20:44 | HPS.HSE ---
Family Physician
-
Family Physician:
Chief Complaint
-
Syncopal episode with altered mental status
History of Present Illness
This is a 83-year-old was recently diagnosed with atrial fibrillation and admitted to the hospital recently, discharged on increased dose of carvedilol and continued on Eliquis who presents to the emergency department with possible syncopal episode
today.
Patient was sitting down after dinner when the family noticed that she became less responsive. She dropped the cup that was in her hand and would not respond to family members. They noticed that she had some slight shaking of her total body. They
denied any facial droop. They denied any focal weakness or numbness. There was no loss of bladder or bowel continence. She herself denies any headache.
Patient reports that since increasing the dose of her Coreg she has had increasing episodes of lightheadedness. She denied any episodes of fluid losses such as diarrhea or vomiting. She denied any urinary symptoms. She denies having any fevers or
chills.
In the emergency department she was afebrile, blood pressure was initially 120/80 and she was satting at 97% on room air. When I saw rate was in the 60s and A-fib. Apparently she was initially tachycardic to 120 and was given a dose of diltiazem
for rate control. ECG did show A-fib at rate of 121. Labs are essentially unchanged from prior with a creatinine of 1.9. Sodium 129.
Medical History
Past Medical History
Past Medical History: Reports Arrhythmia (Proximal atrial fibrillation), CAD (CAD status post LAD stent), HTN, Hypercholesterolemia, Hypothyroidism and NIDDM
Past Surgical History: Reports Other
Social History
Tobacco: Non-smoker
Alcohol: None
Drug: None
Personal:
Living: With Family
Employment: Retired
Family History
Family History: Not pertinent
Allergies / Home Medications
Allergies reflects when Allergies were last updated in [facility].
Home Medications with original date entered in [facility]
Allergy/Medication List:
Allergies
Allergy/AdvReac Type Severity Reaction Status Date / Time
amiodarone Allergy Itching Verified 03/16/24 19:00
semaglutide [From Ozempic] Allergy Itching Verified 03/16/24 19:00
Home Medications
ascorbic acid (vitamin C) 250 mg tablet 250 mg PO DAILY 01/08/18
cyanocobalamin (vitamin B-12) 1,000 mcg tablet 1,000 mcg PO DAILY 01/08/18
cholecalciferol (vitamin D3) 25 mcg (1,000 unit) tablet 25 mcg PO DAILY 01/14/21
rosuvastatin 10 mg tablet 10 mg PO HS 01/14/21
insulin glargine 100 unit/mL (3 mL) subcutaneous pen (Lantus Solostar U-100 Insulin) 11 unit SC HS 12/16/21
levothyroxine 75 mcg tablet 75 mcg PO DAILY 12/16/21
lidocaine 4 % topical patch (Salonpas (lidocaine)) 1 patch topical DAILYPRN PRN neck pain 12/17/21
apixaban 2.5 mg tablet (Eliquis) 2.5 mg PO BID 03/30/22
insulin aspart U-100 100 unit/mL (3 mL) subcutaneous pen (Novolog FlexPen U-100 Insulin aspart) 5 units SC AC 04/22/23
acetaminophen 650 mg tablet,extended release 1,300 mg PO DAILYPRN PRN mild pain 03/12/24
carvedilol 12.5 mg tablet 25 mg (2 x 12.5 mg) PO BID 30 days #120 tabs 03/13/24
Review of Systems
-
Constitutional: Reports No Symptoms
EENT: Reports No Symptoms
Respiratory: Reports No Symptoms
Cardiac: Reports No Symptoms
Musculoskeletal: Reports No Symptoms
Skin: Reports No Symptoms
Neurological: Reports Weakness
Endocrine: Reports No Symptoms
Hematologic/Lymphatic: Reports No Symptoms
Psych: Reports No Symptoms
Physical Exam
Vital Signs
Vital Signs
Temp Pulse Resp BP Pulse Ox
97.6 F 84 17 120/88 98
03/16/24 18:38 03/16/24 20:06 03/16/24 20:00 03/16/24 20:00 03/16/24 20:00
Physical Exam
General: Well Developed
HEENT: NormoCephalic
Respiratory: Clear
Cardiac: S1/S2 and Irregular Rhythm
Breast: Deferred by me
GI: Soft, Non Tender, Non Distended and Normal Bowel Sounds
Rectal: Deferred by Provider
Genito-urinary: Deferred by me
Musculoskeletal: No Clubbing, No Cyanosis and No Edema
Skin: Warm
Neuro: AO x 3 and Nonfocal/grossly intact
Hematologic/Lymphatic: No Lymphadenopathy
Psych: Calm
Laboratory Results
-
03/16/24 19:00
03/16/24 19:00
Laboratory Results
Total Bilirubin 0.7 mg/dl (0.2-1.3) 03/16/24 19:00
AST 117 U/L (14-36) H 03/16/24 19:00
ALT 134 U/L (0-35) H 03/16/24 19:00
Alkaline Phosphatase 186 U/L (38-126) H 03/16/24 19:00
Data Reviewed
-
Medical Tests (Nuc Med, Echo, EKG etc): Image Personally Visualized and interpreted
Lab Data: Labs Reviewed by me
Old Records: Reviewed
Impression/Plan
-
IMPRESSION:
83 y.o with syncopal episode at home.
PLAN:
1. Syncope - More presyncopal episode while sitting, h/o lightheadedness and found to be hyponatremic and in afib here. Unresponsive but no LOC or collapse. Remained sited and looking around during the event lasting 5 minutes. Suspect low BP
versus bailey/tachyarrythmia vs non-epileptic seizures. Recent lightheadedness in setting of increased coreg.
- admit to telemetry
- check CT head to rule out any bleed
- monitor on tele for possible tachy bailey
- orthostatics
- echo
- will give IV fluids as below
- mri
- consider eeg in am
2. AFIB - hypotensive
- hold coreg at current dose, decrease to 12.5
- check orthostatics
- continue eliquis 2.5 bid for now
3. DM 2
- continue lantus 5 hs
- continue aspart 5 tidac with sliding scale
4. Hyponatremia - Suspect hypovolemic/hemodynamic.
- IV fluids overnight and repeat
- check urine osms and sodium
- continue levothyroxine, check tsh and am cortisol
DVT PPX - on eliquis
Code status - full code
--- NOTE | 2024-03-16 23:30 | PTCARENOTE ---
Patient admitted from the ED. Patient was a pullover. Patient AAOx3. Patient is able to state needs. Call vasquez within reach. Patient is on an 1800 calorie diabetic diet. Patient complains of 3/10 back pain. Patient on a bed alarm. Will continue to
monitor.
[2024-03-16 23:38] LABS: Glucose - Point of Care 231 mg/dl (70-99)
[2024-03-16] MEDS: LANTUS 0.05 UNITS SC (23:43)
[2024-03-16] MEDS: CRESTOR 10 MG PO (23:44)
[2024-03-17] VITALS (7 sets, daily range): BP systolic 119–159; BP diastolic 73–94; PULSE 86–121; BMI 25.8
[2024-03-17 01:10] LABS: Urine Sodium 21 mmol/L (30-90)
[2024-03-17 01:15] LABS: Osmolality Urine 638 mOsm/kg (300-900)
[2024-03-17] MEDS: TYLENOL 650 MG PO ×2 (01:19→07:21)
[2024-03-17] MEDS: ELIQUIS 2.5 MG PO ×3 (01:19→21:46)
[2024-03-17] MEDS: SYNTHROID 75 MCG PO (05:05)
[2024-03-17 07:41] LABS: Hematocrit 35.5 % (37.0-47.0); Hemoglobin 11.7 g/dL (12.0-16.0); Mean Platelet Volume 10.8 fL (7.4-10.4); Platelet Count 119 10^3/uL (130-400); White Blood Cell Count 11.8 10^3/uL (4.8-10.8)
[2024-03-17 08:15] LABS: Blood Urea Nitrogen 47 mg/dl (7-17); Calcium 8.7 mg/dl (8.4-10.2); Carbon Dioxide 18 mmol/L (22-30); Chloride 106 mmol/L (98-107); Estimated Creatinine Clearance 23 ml/min; Glucose 214 mg/dl (70-99); Potassium 4.8 mmol/L (3.5-5.1); Sodium 135 mmol/L (135-145); eGFR 27.61
[2024-03-17 08:39] LABS: TSH 1.41 uIU/ml (0.47-4.68)
--- NOTE | 2024-03-17 09:02 | CON.NEURO ---
Consultation
Order
Date of Consultation: 03/17/24
Requesting Provider: Eric Suarez MD
Reason for Consult: Altered mental status?
Neurology Consultation Note.
HPI: This is an 83-year-old woman who presented to [facility] on 03/16/2024 with current lightheadedness.
According to patient's daughter Ms. Diaz was found by her daughter slumped over after she heard dropping a can of soda on the floor. Her daughter reportedly found her with eyes rolled up and unresponsive. She reportedly regained consciousness
within several seconds and had no confusion.
A similar episode occurred in the ER when attempting to use the bathroom; she became limp, and her eyes rolled back. These episodes lasted a few seconds, with no reported stiffness, jaw clenching, tongue biting, or urinary incontinence.
The patient was recommended to increase her carvedilol from 12.5 mg to 25 mg BID following ER visit on 03/12/2024
No reports of head trauma, headaches, history of seizures or epilepsy.
Review of vital signs was notable for transient hypotension down to 86/67 on 03/13/2024 and tachycardia up to 123 on 03/16/2024.
EKG: A-Fib HR 121, QTc Int : 417 ms
PDMP:none
Labs: Sodium�129, glucose�267, creatinine�1.9, WBCs�12.1-11.8, platelets�127�119, normal TSH, CRP, procalcitonin, magnesium, calcium
CT head wo contrast(03/16/3024) -small foci of air are identified within the sagittal venous sinus and the left transverse sinus as well as within the cavernous sinuses. This is likely air introduced during intravenous access. Consideration for
follow-up CT imaging to look for resolution of these cerebral venous air emboli. No evidence for acute intracranial hemorrhage. Atrophy
PMH:PA A-Fib,CAD, HTN, DLP, DM, CKD, chronic leukocytosis, ambulatory dysfunction
PSH: PCI, bilateral cataract surgery
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
All: Ozempic, amiodarone
ROS: Constitutional: Negative. Negative for chills, fever and unexpected weight change.
HENT: Positive for impaired hearing
Eyes: Positive for blurred vision
Respiratory: Negative for cough, choking and shortness of breath.
Cardiovascular: Positive for recurrent syncope
Gastrointestinal: Negative for abdominal pain and vomiting.
Endocrine: Negative. Negative for cold intolerance.
Genitourinary: Negative for dysuria, flank pain and urgency.
Musculoskeletal: Positive. Stiff neck
Skin: Negative for rash.
Allergic/Immunologic: Negative. Negative for immunocompromised state.
Neurological: Positive for imbalance, shuffling gait
General: Well developed. In no acute distress.
Cardio: Regular rate and rhythm without murmur. Extremities are without cyanosis or edema.
Neuro:
Mental Status: Alert, oriented to person, place, and date. Normal attention and recall. Good fund of knowledge. Follows complex requests across the midline. Comprehension, naming, and repetition intact. Immediate and delayed recall 3/3.
Cranial Nerves: Pupils are equally round, surgical. EOMs full. Visual johnson full to confrontation. No ptosis. No nystagmus. V1-V3 intact to light touch and pinprick bilaterally, symmetric. Face symmetric. Impaired hearing AU. The palate
elevated well. SCMs and traps 5/5. Tongue midline. No dysarthria.
Motor: Normal bulk and tone. No pronator or arm drift. Strength 5/5 throughout. No clonus.
Reflexes: 2+ throughout the upper extremities and knees. Plantar responses flexor bilaterally.
Sensory: Normal proprioception at the toes
Coordination: No dysmetria or tremor.
Gait: deferred
Assessment and Plan:
I. Recurrent syncope.
II. Paroxysmal A-fib
III. Autonomic dysfunction
-Fall precautions
-Please obtain orthostatic vitals
-Utilize compression stockings
-Please obtain carotid Doppler ultrasound
-Continue Eliquis 2.5 mg twice daily for stroke prophylaxis
-PT
-Repeat CT head wo contrast to assure resolution of these cerebral venous air emboli
-Cardiology follow-up
-Please recall neurology service with any questions or concerns
I personally reviewed all radiology and labs along with past medical records pertinent to current medical problems. Total time spent in patient care is 60 minutes.
Thank you for allowing us to participate in the care of this patient. Please do not hesitate to contact us with any questions or concerns.
Subjective/Objective
Subjective Data
Date of Service: March 17, 2024
Objective Data
Vital Signs
Temp Pulse Resp BP Pulse Ox
36.4 C 108 18 123/78 98
03/17/24 07:48 03/17/24 07:48 03/17/24 07:48 03/17/24 07:48 03/17/24 07:48
Lab Results
03/17/24 07:03
03/17/24 07:03
Sodium 135 mmol/L (135-145) 03/17/24 07:03
Potassium 4.8 mmol/L (3.5-5.1) 03/17/24 07:03
BUN 47 mg/dl (7-17) H 03/17/24 07:03
Glucose 214 mg/dl (70-99) H 03/17/24 07:03
Calcium 8.7 mg/dl (8.4-10.2) 03/17/24 07:03
Patient Allergies
amiodarone Allergy (Verified 03/16/24 19:00)
Itching
semaglutide [From Ozempic] Allergy (Verified 03/16/24 19:00)
Itching
Medications
-
Active Medications
Generic Name Dose Route Start Last Admin
Trade Name Freq PRN Reason Stop Dose Admin
Acetaminophen 650 mg 03/16/24 23:04 03/17/24 07:21
Acetaminophen 325 Mg Tablet PO 04/13/24 23:03 650 mg
Q4HPRN PRN Administration
mild pain/RAMIREZ/temp> 100.4F
Apixaban 2.5 mg 03/17/24 08:00
Apixaban (Eliquis) 2.5 Mg Tablet PO 04/14/24 07:59
BID JULY
Bisacodyl 10 mg 03/16/24 23:04
Bisacodyl 10 Mg Rectal Suppository RECTAL 04/13/24 23:03
[id number] PRN
constipation
Carvedilol 12.5 mg 03/17/24 08:00
Carvedilol 12.5 Mg Tablet PO 04/14/24 07:59
BID JULY
Cyanocobalamin 1,000 mcg 03/17/24 08:00
Cyanocobalamin 1,000 Mcg Tablet PO 04/14/24 07:59
DAILY JULY
Dextrose 12.5 grams 03/16/24 23:00
Dextrose 50% (0.5 Grams/Ml) 50 Ml Syringe IV 04/13/24 22:59
[id number] PRN
hypoglycemia
Protocol
Glucagon 1 mg 03/16/24 23:00
Glucagon 1 Mg Vial IM 04/13/24 22:59
PRN PRN
hypoglycemia - no IV access
Protocol
Sodium Chloride 1,000 mls @ 100 mls/hr 03/16/24 23:04 03/16/24 23:37
Nss IV 1,000 mls
.Q10H JULY Administration
Insulin Glargine 5 units/ 0.05 mls @ 0 mls/hr 03/16/24 23:00 03/16/24 23:43
Device SC 04/13/24 22:59 0.05 mls
HS JULY Administration
As Directed
Insulin Aspart 3 units 03/17/24 07:30
Insulin Aspart (100 Units/Ml) 3 Ml Flexpen SC 04/14/24 07:29
AC JULY
Insulin Aspart 0 units 03/17/24 07:30
Insulin Aspart Low Resistance 300 Units/3 Ml Pen.Injctr SC 04/14/24 07:29
AC JULY
Protocol
Levothyroxine Sodium 75 mcg 03/17/24 06:00 03/17/24 05:05
Levothyroxine 75 Mcg Tablet PO 04/14/24 05:59 75 mcg
DAILY @ 0600 [facility] Administration
Polyethylene Glycol 17 grams 03/16/24 23:04
Polyethylene Glycol Powder 17 Grams Packet PO 04/13/24 23:03
DAILYPRN PRN
constipation
Rosuvastatin Calcium 10 mg 03/16/24 23:04 03/16/24 23:44
Rosuvastatin (Crestor) 10 Mg Tablet PO 04/13/24 23:03 10 mg
[facility] Administration
Senna/Docusate Sodium 1 tablet 03/16/24 23:04
Docusate W/Senna (Leticia-Colace) Tablet PO 04/13/24 23:03
BIDPRN PRN
constipation
Sodium Chloride 0 flush 03/16/24 23:00
Sodium Chloride 0.9% (Flush) Syringe IV 04/13/24 22:59
PER PROTOCOL [facility]
Home Medications
�Medication �Instructions �Recorded
ascorbic acid (vitamin C) 250 mg 250 mg PO DAILY 01/08/18
tablet
cyanocobalamin (vitamin B-12) 1,000 mcg PO DAILY 01/08/18
1,000 mcg tablet
cholecalciferol (vitamin D3) 25 25 mcg PO DAILY 01/14/21
mcg (1,000 unit) tablet
rosuvastatin 10 mg tablet 10 mg PO HS 01/14/21
insulin glargine 100 unit/mL (3 11 unit SC 12/16/21
mL) subcutaneous pen (Lantus
Solostar U-100 Insulin)
levothyroxine 75 mcg tablet 75 mcg PO DAILY 12/16/21
lidocaine 4 % topical patch 1 patch topical DAILYPRN PRN neck 12/17/21
(Salonpas (lidocaine)) pain
apixaban 2.5 mg tablet (Eliquis) 2.5 mg PO BID 03/30/22
insulin aspart U-100 100 unit/mL 5 units SC AC 04/22/23
(3 mL) subcutaneous pen (Novolog
FlexPen U-100 Insulin aspart)
acetaminophen 650 mg 1,300 mg PO DAILYPRN PRN mild pain 03/12/24
tablet,extended release
carvedilol 12.5 mg tablet 25 mg (2 x 12.5 mg) PO BID 30 days 03/13/24
#120 tabs
Vital Signs and Labs
-
Vital Signs and Labs:
Vital Signs
Temp Pulse Resp BP Pulse Ox
36.4 C 108 18 123/78 98
03/17/24 07:48 03/17/24 07:48 03/17/24 07:48 03/17/24 07:48 03/17/24 07:48
Lab Results
03/17/24 07:03
03/17/24 07:03
Sodium 135 mmol/L (135-145) 03/17/24 07:03
Potassium 4.8 mmol/L (3.5-5.1) 03/17/24 07:03
BUN 47 mg/dl (7-17) H 03/17/24 07:03
Glucose 214 mg/dl (70-99) H 03/17/24 07:03
Calcium 8.7 mg/dl (8.4-10.2) 03/17/24 07:03
Medications
-
Medications:
Generic Name Dose Route Start Last Admin
Trade Name Freq PRN Reason Stop Dose Admin
Acetaminophen 650 mg 03/16/24 23:04 03/17/24 07:21
Acetaminophen 325 Mg Tablet PO 04/13/24 23:03 650 mg
Q4HPRN PRN Administration
mild pain/RAMIREZ/temp> 100.4F
Apixaban 2.5 mg 03/17/24 08:00
Apixaban (Eliquis) 2.5 Mg Tablet PO 04/14/24 07:59
BID JULY
Bisacodyl 10 mg 03/16/24 23:04
Bisacodyl 10 Mg Rectal Suppository RECTAL 04/13/24 23:03
[id number] PRN
constipation
Carvedilol 12.5 mg 03/17/24 08:00
Carvedilol 12.5 Mg Tablet PO 04/14/24 07:59
BID JULY
Cyanocobalamin 1,000 mcg 03/17/24 08:00
Cyanocobalamin 1,000 Mcg Tablet PO 04/14/24 07:59
DAILY JULY
Dextrose 12.5 grams 03/16/24 23:00
Dextrose 50% (0.5 Grams/Ml) 50 Ml Syringe IV 04/13/24 22:59
[id number] PRN
hypoglycemia
Protocol
Glucagon 1 mg 03/16/24 23:00
Glucagon 1 Mg Vial IM 04/13/24 22:59
PRN PRN
hypoglycemia - no IV access
Protocol
Sodium Chloride 1,000 mls @ 100 mls/hr 03/16/24 23:04 03/16/24 23:37
Nss IV 1,000 mls
.Q10H JULY Administration
Insulin Glargine 5 units/ 0.05 mls @ 0 mls/hr 03/16/24 23:00 03/16/24 23:43
Device SC 04/13/24 22:59 0.05 mls
HS JULY Administration
As Directed
Insulin Aspart 3 units 03/17/24 07:30
Insulin Aspart (100 Units/Ml) 3 Ml Flexpen SC 04/14/24 07:29
AC JULY
Insulin Aspart 0 units 03/17/24 07:30
Insulin Aspart Low Resistance 300 Units/3 Ml Pen.Injctr SC 04/14/24 07:29
AC JULY
Protocol
Levothyroxine Sodium 75 mcg 03/17/24 06:00 03/17/24 05:05
Levothyroxine 75 Mcg Tablet PO 04/14/24 05:59 75 mcg
DAILY @ 0600 JULY Administration
Polyethylene Glycol 17 grams 03/16/24 23:04
Polyethylene Glycol Powder 17 Grams Packet PO 04/13/24 23:03
DAILYPRN PRN
constipation
Rosuvastatin Calcium 10 mg 03/16/24 23:04 03/16/24 23:44
Rosuvastatin (Crestor) 10 Mg Tablet PO 04/13/24 23:03 10 mg
HS JULY Administration
Senna/Docusate Sodium 1 tablet 03/16/24 23:04
Docusate W/Senna (Leticia-Colace) Tablet PO 04/13/24 23:03
BIDPRN PRN
constipation
Sodium Chloride 0 flush 03/16/24 23:00
Sodium Chloride 0.9% (Flush) Syringe IV 04/13/24 22:59
PER PROTOCOL JULY
Home Medications
-
Home Medications
ascorbic acid (vitamin C) 250 mg tablet 250 mg PO DAILY 01/08/18
cyanocobalamin (vitamin B-12) 1,000 mcg tablet 1,000 mcg PO DAILY 01/08/18
cholecalciferol (vitamin D3) 25 mcg (1,000 unit) tablet 25 mcg PO DAILY 01/14/21
rosuvastatin 10 mg tablet 10 mg PO HS 01/14/21
insulin glargine 100 unit/mL (3 mL) subcutaneous pen (Lantus Solostar U-100 Insulin) 11 unit SC HS 12/16/21
levothyroxine 75 mcg tablet 75 mcg PO DAILY 12/16/21
lidocaine 4 % topical patch (Salonpas (lidocaine)) 1 patch topical DAILYPRN PRN neck pain 12/17/21
apixaban 2.5 mg tablet (Eliquis) 2.5 mg PO BID 03/30/22
insulin aspart U-100 100 unit/mL (3 mL) subcutaneous pen (Novolog FlexPen U-100 Insulin aspart) 5 units SC AC 04/22/23
acetaminophen 650 mg tablet,extended release 1,300 mg PO DAILYPRN PRN mild pain 03/12/24
carvedilol 12.5 mg tablet 25 mg (2 x 12.5 mg) PO BID 30 days #120 tabs 03/13/24
--- NOTE | 2024-03-17 09:06 | CON.CAR ---
Addendum entered and electronically signed by Jose Stone MD 03/17/24 16:00:
83-year-old woman with paroxysmal atrial fibrillation, with hair loss and possible vision changes on amiodarone, not a candidate for sotalol or dofetilide given renal function or 1C agents given history of CAD/remote LAD PCI, CMimpEF. Now with
recurrent admission for poorly responsive episode likely related to hypotension and rapid RVR to atrial fibrillation. PVI is scheduled for April 12. Had a ER visit on March 07 and was admitted overnight on March 12
PMH: PAF, CAD/LAD stent, hypertension, hypercholesterolemia, diabetes, hypothyroidism, CKD 3/4
PSH: Noncontributory
Allergies: Amiodarone, semaglutide
Current meds: Apixaban 2.5 mg twice daily, carvedilol 12.5 mg twice daily, levothyroxine 75 mcg a day, rosuvastatin 10 mg a day, insulin
119/80, pulse 126, respirate 20, afebrile sats 98%, weight is 74.6 kg, chronically ill, daughter at bedside, frustrated, head neck exam unremarkable, lungs clear, tachycardic, abdomen benign not much edema
ECG atrial fibrillation with rapid ventricular response, right axis deviation, nonspecific ST and T changes
Echo 04/09, EF 55%, MAC, mild to moderate E MR, mild aortic regurgitation
Echo today: Pending
Impression:
Paroxysmal/persistent atrial fibrillation with rapid ventricular response
Orthostatic hypotension with syncope/near syncope
Intolerance of amiodarone, poor candidate for sotalol, dofetilide, 1C drugs
CKD 3/4
Diabetes
CAD, remote LAD stent
Hypertension
Hyperlipidemia
Hypothyroidism
Plan:
Her episodes of unresponsiveness likely related to combination of rapid ventricular response to atrial fibrillation and hypotension provoked by carvedilol. Carvedilol has been reduced back to 12.5 mg twice daily. Her symptoms worsened when
carvedilol was increased.
Unfortunately, short of PVI it will be difficult to control her symptoms.
However, with the addition of renal dose digoxin and midodrine I think we can support her blood pressure and slow her heart rate to the point where she is functional.
Will give digoxin 250 mcg today and tomorrow and then on Wednesday begin 62.5 mcg daily
Add midodrine 5 mg 3 times daily.
Await echocardiogram. Will need to watch for volume overload. Check proBNP and IV
Original Note:
Consultation
Consultation Request
Date/Time Consultation Requested: 03/17/2024
Date/Time Consultation Performed: 03/17/2024
Requesting Provider: Dr. Suarez
Performing Provider: Ada Acevedo PA-C for Dr. Stone
Reason for Consultation: Near syncope, Afib
Medical History
-
History of Present Illness:
HPI: Yesenia is an 83 year old female with PMH of paroxysmal atrial fibrillation, CAD w/ prior PCI, improved CM, CKD 4, DM2, HTN, HLD, and prior TIA. She was recently admitted at 03/12 to 03/13 for lightheadedness and rapid afib. She was placed on
higher dose carvedilol 25mg BID and heart rates improved, so she was discharged and followed up with cardiology in the office on 03/14 to discuss ablation. She remained in afib with improved heart rates at that visit and has been arranged for
ablation 04/12/2024. Yesterday she was sitting at the table drinking a soda when she became somewhat unresponsive. She did not pass out or lose pulse, but was staring blankly ahead and dropped the cup that was in her hand. She came to [facility] for
evaluation and was in rapid atrial fibrillation. She notes since being placed on higher dose carvedilol, she has had an increase in her episodes of lightheadedness and notes typically symptoms occur with position change. She was admitted overnight
for observation and follow up. She feels well this AM while resting in bed. HR fairly well controlled on review of telemetry, in the 90s to 100s.
PMH:
Paroxysmal Afib
Chronic Eliquis OAC
CAD
s/p 3 mm Xience to prox LAD and bifurcation PTCA first diagonal and PTCA of OM1 superior and Inferior branches 02/2008
Improved CM
CKD 4
DM 2
HTN
Hyperlipidemia
h/o CVA 2013
Past Medical History
Past Medical History: Other (in HPI)
Past Surgical History: Cardiac (PCI)
Social History
Tobacco: Non-Smoker
Alcohol: None
Drug: None
Personal:
Living: With Family
Family History
Family History: CAD and Other (COPD)
Allergies / Home Medications
Allergy/AdvReac Type Severity Reaction Status Date / Time
amiodarone Allergy Itching Verified 03/16/24 19:00
semaglutide [From Ozempic] Allergy Itching Verified 03/16/24 19:00
�Medication �Instructions �Recorded �Confirmed �Type
ascorbic acid (vitamin C) 250 mg 250 mg PO DAILY 01/08/18 03/12/24 History
tablet
cyanocobalamin (vitamin B-12) 1,000 mcg PO DAILY 01/08/18 03/12/24 History
1,000 mcg tablet
cholecalciferol (vitamin D3) 25 25 mcg PO DAILY 01/14/21 03/12/24 History
mcg (1,000 unit) tablet
rosuvastatin 10 mg tablet 10 mg PO HS 01/14/21 03/12/24 History
insulin glargine 100 unit/mL (3 11 unit SC HS 12/16/21 03/12/24 History
mL) subcutaneous pen (Lantus
Solostar U-100 Insulin)
levothyroxine 75 mcg tablet 75 mcg PO DAILY 12/16/21 03/12/24 History
lidocaine 4 % topical patch 1 patch topical DAILYPRN PRN neck 12/17/21 03/12/24 History
(Salonpas (lidocaine)) pain
apixaban 2.5 mg tablet (Eliquis) 2.5 mg PO BID 03/30/22 03/12/24 History
insulin aspart U-100 100 unit/mL 5 units SC AC 04/22/23 03/12/24 History
(3 mL) subcutaneous pen (Novolog
FlexPen U-100 Insulin aspart)
acetaminophen 650 mg 1,300 mg PO DAILYPRN PRN mild pain 03/12/24 03/12/24 History
tablet,extended release
carvedilol 12.5 mg tablet 25 mg (2 x 12.5 mg) PO BID 30 days 03/13/24 Rx
#120 tabs
Review of Systems
-
History Source: Patient
All other systems: Negative unless noted
Physical Exam
Vital Signs
Temp Pulse Resp BP Pulse Ox
97.5 F 108 18 123/78 98
03/17/24 07:48 03/17/24 07:48 03/17/24 07:48 03/17/24 07:48 03/17/24 07:48
Lab Results
03/17/24 07:03
03/17/24 07:03
Physical Exam
General: Well Developed, Well Nourished and No Apparent Distress
HEENT: Normocephalic, Anicteric and Moist Mucous Membranes
Respiratory: Clear and Non Labored Respirations
Cardiac: S1/S2 and Irregular Rhythm
Musculoskeletal: No Clubbing and No Cyanosis
Skin: Warm and Dry
Neuro: AO x 3 and Nonfocal/Grossly Intact
Psych: Calm
Impression / Plan
-
PCP: Susie Jarquin PA-C
Release Coordinator: Dr. Read
Impression:
Presented with lightheadedness
Paroxysmal Afib
Chronic Eliquis OAC
CAD
s/p 3 mm Xience to prox LAD and bifurcation PTCA first diagonal and PTCA of OM1 superior and Inferior branches 02/2008
Improved CM
CKD 4
Elevated LFTs
DM 2
HTN
Hyperlipidemia
h/o CVA 2013
Echo 04/01/2022: EF 55%, mild cLVH, stage II diastolic dysfunction, mild MAC, mild to moderate MR, mild AI
Echo 03/17/2024: Study pending
Plan:
-Presented with recurrent lightheadedness w/ episode of decreased responsiveness. Did not lose consciousness, but was staring ahead, not responding to family, and dropped cup.
-ECG reviewed from ER, Afib w/ RCR, HR 121 bpm.
-HR improved overnight, typically in the 90s to 100s on tele.
-Continue coreg, agree w/ decreasing dose back to 12.5mg BID.
-Continues on uninterrupted AC with Eliquis 2.5mg BID (Age, creat).
-She is planned for PVI 04/12/2024.
-Check orthostatic VS. BPs were dropping slightly w/ standing during prior admission. Intermittently hypotensive again.
-Check echo. Prior echo in 2022 w/ preserved EF and mid to moderate MR.
-Weight up 9lbs since 03/13 if accurate, up to 164 lbs 03/17. Elevated LFTs noted. Check proBNP.
-K and mag stable. TSH normal.
HPI: Yesenia is an 83 year old female with PMH of paroxysmal atrial fibrillation, CAD w/ prior PCI, improved CM, CKD 4, DM2, HTN, HLD, and prior TIA. She was recently admitted at 03/12 to 03/13 for lightheadedness and rapid afib. She was placed on
higher dose carvedilol 25mg BID and heart rates improved, so she was discharged and followed up with cardiology in the office on 03/14 to discuss ablation. She remained in afib with improved heart rates at that visit and has been arranged for
ablation 04/12/2024. Yesterday she was sitting at the table drinking a soda when she became somewhat unresponsive. She did not pass out or lose pulse, but was staring blankly ahead and dropped the cup that was in her hand. She came to [facility] for
evaluation and was in rapid atrial fibrillation. She notes since being placed on higher dose carvedilol, she has had an increase in her episodes of lightheadedness and notes typically symptoms occur with position change. She was admitted overnight
for observation and follow up. She feels well this AM while resting in bed. HR fairly well controlled on review of telemetry, in the 90s to 100s.
Data Reviewed
-
EKG: Tracing Personally Visualized and interpreted
Radiology: Report Reviewed by me
CT Scan: Report Reviewed by me
Labs: Labs Reviewed by me
Old Records: Reviewed
--- NOTE | 2024-03-17 09:38 | W.PN.HOSP.TC ---
Today's Communication/Plan
-
Cardiac monitoring. PT OT. Cardiology and neurology consult
Assessment / Plan
Assessment / Plan
Physical exam:
General: Well Developed, Well Nourished and No Apparent Distress
HEENT: Normocephalic, Atraumatic and Moist Mucous Membranes
Respiratory: Clear to Auscultation; Negative Wheezes, Rales or Rhonchi
Cardiac: Regular Rhythm and S1/S2
GI: Soft, Nontender and Nondistended
Musculoskeletal: No Clubbing, No Cyanosis and No Edema
Neuro: Awake, Alert and Oriented
Psych: Calm
A/P:
1. Syncope -workup in progress
-Cardiology consulted
-Neurology consulted
- check CT head and brain MRI
- monitor on tele for possible tachy bailey
- orthostatics
- will give IV fluids as below
- consider eeg
-Discussed with daughter at bedside today
2. AFIB - hypotensive
- hold coreg at current dose, decrease to 12.5
- check orthostatics
- continue eliquis 2.5 bid for now
-This is her second admission for atrial fibrillation issues with heart rate tachycardic and increased medications and now medications have to decreased due to hypotension
3. DM 2
- continue lantus 5 hs
- continue aspart 5 tidac with sliding scale
4. Hyponatremia - Suspect hypovolemic/hemodynamic.
-Sodium back up to normal 135 today.
- IV fluids overnight and repeat
- check urine osms and sodium
- continue levothyroxine, check tsh and am cortisol
DVT PPX - on eliquis
Code status - full code
Anticipated Discharge: > 48 hours
Subjective/Interval History
-
Date of Service: March 17, 2024
Patient alert and oriented today.
Objective Data
-
Labs:
Laboratory Results
03/17/24
07:03
WBC 11.8 H
Hgb 11.7 L
Hct 35.5 L
Plt Count 119 L
Sodium 135
Potassium 4.8
Chloride 106
Carbon Dioxide 18 L
BUN 47 H
Creatinine 1.8 H
Glucose 214 H
Calcium 8.7
Vital Signs:
Vital Signs
Temp Pulse Resp BP Pulse Ox
97.5 F 108 18 123/78 98
03/17/24 07:48 03/17/24 07:48 03/17/24 07:48 03/17/24 07:48 03/17/24 07:48
I&O
03/16/24 03/17/24 03/18/24
06:59 06:59 06:59
Output Total 100 / 100
Balance -100 / -100
--- NOTE | 2024-03-17 09:43 | VNURNOTE ---
Chart reviewed.� Patient is current with [facility] nursing.� Will continue to follow hospital course and DC plans.
[2024-03-17] MEDS: VITAMIN B-12 1000 MCG PO (10:00)
[2024-03-17 10:01] LABS: Glucose - Point of Care 199 mg/dl (70-99)
[2024-03-17] MEDS: NOVOLOG FLEXPEN-LOW RESISTANCE 1 UNITS SC (10:01)
[2024-03-17] MEDS: NOVOLOG FLEXPEN SC (10:01)
[2024-03-17 10:11] LABS: INR 1.82; Lactic Acid 1.6 mmol/L (0.7-2.0); PT 21.3 Sec (11.4-14.6)
[2024-03-17] MEDS: COREG 12.5 MG PO ×2 (10:12→21:46)
[2024-03-17 10:14] LABS: ALT (SGPT) 130 U/L (0-35); AST (SGOT) 67 U/L (14-36); Albumin 3.6 g/dl (3.5-5.0); Alkaline Phosphatase 159 U/L (38-126); Direct Bilirubin 0.1 mg/dl (0.0-0.4); Total Bilirubin 0.8 mg/dl (0.2-1.3)
[2024-03-17 10:17] LABS: C-Reactive Protein < 5.00 mg/L (0.0-10.00)
[2024-03-17 10:27] LABS: Procalcitonin < 0.05 ng/ml (0.0-0.25)
[2024-03-17 11:16] LABS: NT-proBNP 8650 pg/ml
[2024-03-17 11:30] LABS: Erythrocyte Sed Rate 25 mm/hour (0-20)
[2024-03-17] MEDS: NSS 1000 IV (13:02)
[2024-03-17] MEDS: FLUSH (NSS) 1 FLUSH IV (13:03)
[2024-03-17 13:25] LABS: Glucose - Point of Care 250 mg/dl (70-99)
[2024-03-17] MEDS: NOVOLOG FLEXPEN 3 UNITS SC ×2 (13:27→19:10)
[2024-03-17] MEDS: NOVOLOG FLEXPEN-LOW RESISTANCE 3 UNITS SC (13:28)
--- NOTE | 2024-03-17 16:01 | CM ---
sr. strategic sourcing manager reviewed patient's chart and patient was admitted under OBS, [facility] letter discussed and placed on chart. Patient lives with spouse in a 2 story home with 3 steps to enter, patient is independent with adl's and uses a cane with
ambulation. Patient is current with [facility].
PCP: Susie Jarquin
Pharmacy: [facility]
Plan; Home with [facility] when stable.
[2024-03-17 16:15] LABS: Urine Albumin 2+ (Neg - Trace); Urine Bilirubin Negative (Negative); Urine Character Slightly Cloudy (Clear); Urine Color Yellow; Urine Glucose 1+ (Negative); Urine Ketone Negative (Negative); Urine Leukocyte 3+ (Negative); Urine Nitrite Positive (Negative); Urine Occult Blood 1+ (Negative); Urine Urobilinogen Negative (Neg - 1+)
[2024-03-17 16:23] LABS: Urine Squamous Cell 0-2 /LPF (Few)
[2024-03-17 16:24] LABS: Urine Bacteria Many (Negative); Urine Red Blood Cell 0-2 /HPF (0-2); Urine White Cell 16-20 /HPF (0-5)
[2024-03-17] MEDS: LANOXIN 250 MCG IV (16:47)
[2024-03-17] MEDS: ProAmatine 2.5 MG PO (16:49)
[2024-03-17 19:04] LABS: Glucose - Point of Care 243 mg/dl (70-99)
[2024-03-17] MEDS: NOVOLOG FLEXPEN-LOW RESISTANCE 2 UNITS SC (19:11)
[2024-03-17 21:11] LABS: Glucose - Point of Care 257 mg/dl (70-99)
[2024-03-17] MEDS: CRESTOR 10 MG PO (21:48)
[2024-03-17] MEDS: LANTUS 0.05 UNITS SC (21:49)
[2024-03-18] VITALS (10 sets, daily range): BP systolic 104–160; BP diastolic 56–89; PULSE 82–102; O2SAT 99; BMI 25.3
[2024-03-18] MEDS: SYNTHROID 75 MCG PO (05:23)
[2024-03-18 08:41] LABS: Glucose - Point of Care 155 mg/dl (70-99)
--- NOTE | 2024-03-18 08:52 | W.PN.HOSP.TC ---
Today's Communication/Plan
-
Cardiac and neuro workup in progress
Assessment / Plan
Assessment / Plan
Physical exam:
General: Well Developed, Well Nourished and No Apparent Distress
HEENT: Normocephalic, Atraumatic and Moist Mucous Membranes
Respiratory: Clear to Auscultation; Negative Wheezes, Rales or Rhonchi
Cardiac: Regular Rhythm and S1/S2
GI: Soft, Nontender and Nondistended
Musculoskeletal: No Clubbing, No Cyanosis and No Edema
Neuro: Awake, Alert and Oriented
Psych: Calm
A/P:
1. Syncope -workup in progress
-Cardiology consulted
-Neurology consulted
- check CT head and brain MRI
- monitor on tele for possible tachy bailey
- orthostatics
- will give IV fluids as below
- consider eeg
-Discussed with daughter at bedside yesterday
2. AFIB - hypotensive
- hold coreg at current dose, decrease to 12.5
- check orthostatics
- continue eliquis 2.5 bid for now
-This is her second admission for atrial fibrillation issues with heart rate tachycardic and increased medications and now medications have to decreased due to hypotension
3. DM 2
- continue lantus 5 hs
- continue aspart 5 tidac with sliding scale
4. Hyponatremia - Suspect hypovolemic/hemodynamic.
-Sodium back up to normal 135 today.
- IV fluids overnight and repeat
- check urine osms and sodium
- continue levothyroxine, check tsh and am cortisol
DVT PPX - on eliquis
Code status - full code
Anticipated Discharge: > 48 hours
Subjective/Interval History
-
Date of Service: March 18, 2024
Patient does not feel well overall but she is not able to elaborate. Afebrile.
Objective Data
-
Labs:
Laboratory Results
03/18/24
06:27
WBC Pending
Hgb Pending
Hct Pending
Plt Count Pending
Sodium Pending
Potassium Pending
Chloride Pending
Carbon Dioxide Pending
BUN Pending
Creatinine Pending
Glucose Pending
Calcium Pending
Vital Signs:
Vital Signs
Temp Pulse Resp BP Pulse Ox
98.1 F 81 18 147/89 97
03/18/24 07:00 03/18/24 07:00 03/18/24 07:00 03/18/24 07:00 03/18/24 07:00
I&O
03/17/24 03/18/24 03/19/24
06:59 06:59 06:59
Intake Total 1600 / 1600
Output Total 100 / 100 400 / 400
Balance -100 / -100 1200 / 1200
[2024-03-18 08:53] LABS: Hematocrit 36.6 % (37.0-47.0); Hemoglobin 11.8 g/dL (12.0-16.0); Mean Corp Hgb Conc. 32.2 g/dL (33.0-37.0); Mean Corpuscular Hgb 29.5 pg (27.0-31.0); Mean Corpuscular Volume 91.5 fL (81.0-99.0); Mean Platelet Volume 11.2 fL (7.4-10.4); Platelet Count 128 10^3/uL (130-400); Red Cell Dist. Width 15.4 % (11.5-14.5); White Blood Cell Count 14.6 10^3/uL (4.8-10.8)
[2024-03-18 09:07] LABS: Blood Urea Nitrogen 42 mg/dl (7-17); Calcium 8.9 mg/dl (8.4-10.2); Carbon Dioxide 16 mmol/L (22-30); Chloride 108 mmol/L (98-107); Estimated Creatinine Clearance 26 ml/min; Glucose 144 mg/dl (70-99); Potassium 4.5 mmol/L (3.5-5.1); Sodium 135 mmol/L (135-145)
[2024-03-18] MEDS: ELIQUIS 2.5 MG PO ×2 (09:31→19:56)
[2024-03-18] MEDS: VITAMIN B-12 1000 MCG PO (09:31)
[2024-03-18] MEDS: NOVOLOG FLEXPEN 3 UNITS SC ×3 (09:31→16:50)
[2024-03-18] MEDS: COREG 12.5 MG PO ×2 (09:31→19:55)
[2024-03-18] MEDS: NOVOLOG FLEXPEN-LOW RESISTANCE 1 UNITS SC (09:32)
[2024-03-18 09:33] LABS: % Basophils 0.3 % (0-2); % Eosinophils 1.2 % (0-6); % Immature Granulocytes 0.3 % (0-0.5); % Lymphocytes 42.9 % (20.5-51.1); % Monocytes 5.2 % (1.7-9.3); % Neutrophils 50.1 % (42.2-75.2); Absolute Basophils 0.1 10^3/uL (0-0.2); Absolute Eosinophils 0.2 10^3/uL (0-0.7); Absolute Immature Granulocytes 0.1 10^3/uL (0-0.05); Absolute Lymphocytes 6.3 10^3/uL (1.2-3.4); Absolute Monocytes 0.8 10^3/uL (0.1-0.6); Absolute Neutrophils 7.3 10^3/uL (1.4-6.5); Nucleated Red Blood Cells % 0 %
[2024-03-18] MEDS: ProAmatine PO (09:42)
[2024-03-18] MEDS: LANOXIN 250 MCG IV (09:54)
[2024-03-18 11:35] LABS: Glucose - Point of Care 213 mg/dl (70-99)
[2024-03-18] MEDS: NOVOLOG FLEXPEN-LOW RESISTANCE 2 UNITS SC ×2 (11:37→16:51)
[2024-03-18] MEDS: ProAmatine 2.5 MG PO ×2 (14:38→18:18)
[2024-03-18 16:49] LABS: Glucose - Point of Care 231 mg/dl (70-99)
[2024-03-18 21:49] LABS: Glucose - Point of Care 283 mg/dl (70-99)
[2024-03-19] VITALS (8 sets, daily range): BP systolic 96–155; BP diastolic 42–71; BMI 25.0
[2024-03-19] MEDS: CRESTOR 10 MG PO ×2 (00:14→21:37)
[2024-03-19] MEDS: LANTUS 0.05 UNITS SC ×2 (00:15→22:39)
[2024-03-19 00:20] LABS: Glucose - Point of Care 223 mg/dl (70-99)
[2024-03-19] MEDS: SYNTHROID 75 MCG PO (06:09)
[2024-03-19 07:29] LABS: Hematocrit 36.9 % (37.0-47.0); Mean Corp Hgb Conc. 32.5 g/dL (33.0-37.0); Mean Corpuscular Hgb 29.3 pg (27.0-31.0); Mean Platelet Volume 11.3 fL (7.4-10.4); Platelet Count 126 10^3/uL (130-400); Red Cell Dist. Width 15.1 % (11.5-14.5); White Blood Cell Count 13.5 10^3/uL (4.8-10.8)
[2024-03-19 07:46] LABS: Blood Urea Nitrogen 39 mg/dl (7-17); Carbon Dioxide 20 mmol/L (22-30); Chloride 106 mmol/L (98-107); Estimated Creatinine Clearance 26 ml/min; Glucose 207 mg/dl (70-99); Potassium 4.3 mmol/L (3.5-5.1); Sodium 135 mmol/L (135-145)
[2024-03-19 07:55] LABS: Glucose - Point of Care 198 mg/dl (70-99)
[2024-03-19] MEDS: VITAMIN B-12 1000 MCG PO (08:02)
[2024-03-19] MEDS: COREG 12.5 MG PO ×2 (08:02→21:39)
[2024-03-19] MEDS: ProAmatine 2.5 MG PO ×2 (08:02→11:48)
[2024-03-19] MEDS: ELIQUIS 2.5 MG PO ×2 (08:02→21:32)
[2024-03-19] MEDS: NOVOLOG FLEXPEN-LOW RESISTANCE 1 UNITS SC (08:03)
[2024-03-19] MEDS: NOVOLOG FLEXPEN 3 UNITS SC ×3 (08:03→16:30)
[2024-03-19 08:51] LABS: % Basophils 0.5 % (0-2); % Eosinophils 1.7 % (0-6); % Immature Granulocytes 0.3 % (0-0.5); % Lymphocytes 44.8 % (20.5-51.1); % Monocytes 5.9 % (1.7-9.3); % Neutrophils 46.8 % (42.2-75.2); Absolute Basophils 0.1 10^3/uL (0-0.2); Absolute Eosinophils 0.2 10^3/uL (0-0.7); Absolute Monocytes 0.8 10^3/uL (0.1-0.6); Absolute Neutrophils 6.3 10^3/uL (1.4-6.5); Nucleated Red Blood Cells % 0 %
--- NOTE | 2024-03-19 10:26 | W.PN.HOSP.TC ---
Today's Communication/Plan
-
IV Rocephin. Digoxin. Midodrine.
Assessment / Plan
Assessment / Plan
Physical exam:
General: Acutely ill
HEENT: Normocephalic, Atraumatic and Moist Mucous Membranes
Respiratory: Clear to Auscultation; Negative Wheezes, Rales or Rhonchi
Cardiac: Irregular rate and rhythm and S1/S2
GI: Soft, Nontender and Nondistended
Musculoskeletal: No Clubbing, No Cyanosis. Presence of bilateral lower extremity edema
Neuro: Awake, Alert and Oriented, no gross neurological deficit
Psych: Calm
Echocardiogram:
Normal left ventricular size.
Asymmetric septal hypertrophy.
Moderately reduced left ventricular systolic function.
LV ejection fraction is 35% by Christopher's method of discs.
Diastolic function indeterminate due to atrial fibrillation.
Normal right ventricular size.
Reduced right ventricular systolic function.
Trace aortic regurgitation.
Mitral sclerosis without stenosis.
Moderate tricuspid regurgitation.
Estimated pulmonary artery pressure of 55-60 mmHg assuming a right atrial
pressure of 8 mmHg.
The IVC is dilated and does not collapse.
Compared to 2022 echocardiogram Ejection fraction is now moderately reduced and
has dropped from 50-55% to 35%.
A/P:
Syncope:
This time it is likely related to hypotension but ultimately linked to her A-fib but also superimposed with an episode of UTI.
She had recent admission for A-fib RVR for which beta-gina was increased. Now beta-gina has to be decreased.
She has ablation scheduled for 04/12 by EP as outpatient. This might need to be reconsidered if needs to be done earlier.
Cardiology started her on digoxin, loaded with 250 mcg x 2 and now on 62.5 mcg daily. She was also started on midodrine 2.5 mg p.o. 3 times daily. Intolerant or poor candidate for some antiarrhythmics.
Echocardiogram updated and abnormal results as above.
Continue cardiac monitoring
Neurological workup unremarkable for acute finding but show some chronic abnormality on MRI of the brain. Neurology on board
Abnormal ultrasound of the abdomen but does not correlate clinically.
Discussed with daughter at bedside today on 03/19 and discussed all the tests results that we have during this hospitalization.
PT OT eval
Paroxysmal versus persistent atrial fibrillation:
Rate control now Coreg 12.5 mg twice a day and digoxin 62.5 mg p.o. day
Anticoagulation Eliquis 2.5 mg twice a day
See rest of the plan as above
UTI:
Started on IV ceftriaxone 1 g daily
Cultures growing E. coli
Left ventricular systolic dysfunction:
EF 35% compared to 50 to 55% on last echocardiogram
Suspect related to tachyarrhythmia but deferred to cardiology if she requires further ischemic and nonischemic workup.
Monitor volume status closely
GDMT
Hyponatremia:
Improved
Sodium today 135
CKD stage III:
Avoid nephrotoxic
Monitor renal function
CAD:
Chest pain-free
Continue current anti-ischemic regimen
History of s/p 3 mm Xience to prox LAD and bifurcation PTCA first diagonal and PTCA of OM1 superior and Inferior branches 02/2008
Diabetes mellitus type 2:
Continue current insulin regimen
Continue insulin sliding scale
Hypertension:
Continue current antihypertensives
Hypotension/probably orthostatic hypotension:
On midodrine
Hyperlipidemia:
Continue statin
Hypothyroidism:
Continue thyroid place
History of TIA/CVA:
On Eliquis and statin
DVT prophylaxis:
Eliquis
CODE STATUS:
Full code
Total time spent on today's encounter was 52 minutes which included time spent in counseling the patient/family regarding diagnosis and treatment plan as listed above, goals of care, and symptom management. Case was discussed with nursing staff,
specialists, and care coordinators/case management. All labs and imaging personally reviewed by me. Remainder the time spent in detailed review of previous records, lab data, imaging, and other medical provider documentation.
Anticipated Discharge: > 48 hours
Subjective/Interval History
-
Date of Service: March 19, 2024
No chest pain or shortness of breath. No further syncope. Afebrile.
Objective Data
-
Labs:
Laboratory Results
03/19/24
06:22
WBC 13.5 H
Hgb 12.0
Hct 36.9 L
Plt Count 126 L
Sodium 135
Potassium 4.3
Chloride 106
Carbon Dioxide 20 L
BUN 39 H
Creatinine 1.6 H
Glucose 207 H
Calcium 9.0
Vital Signs:
Vital Signs
Temp Pulse Resp BP Pulse Ox
97.8 F 93 14 136/71 98
03/19/24 07:06 03/19/24 07:06 03/19/24 07:06 03/19/24 07:06 03/19/24 07:06
I&O
03/18/24 03/19/24 03/20/24
06:59 06:59 06:59
Intake Total 1600 / 1600
Output Total 400 / 400
Balance 1200 / 1200
[2024-03-19 11:08] LABS: Glucose - Point of Care 240 mg/dl (70-99)
[2024-03-19] MEDS: NOVOLOG FLEXPEN-LOW RESISTANCE 2 UNITS SC (11:47)
[2024-03-19] MEDS: LANOXIN 62.5 MCG PO (11:47)
[2024-03-19] MEDS: ROCEPHIN 1000 MG IV (12:55)
[2024-03-19] MEDS: STERILE WATER FOR INJECTION 10 ML IV (12:55)
--- NOTE | 2024-03-19 14:50 | W.PN.CARDCBS ---
Today's Communication / Plan
-
IV Lasix today for volume overload
Continue rate control with carvedilol and digoxin
Continue midodrine for orthostatic hypotension/dysautonomia
Impression / Plan
-
PCP: Susie Jarquin PA-C
Chore Worker: Dr. Read
Impression:
Presented with lightheadedness
Paroxysmal Afib
Chronic Eliquis OAC
CAD
s/p 3 mm Xience to prox LAD and bifurcation PTCA first diagonal and PTCA of OM1 superior and Inferior branches 02/2008
Improved CM
CKD 4
Elevated LFTs
DM 2
HTN
Hyperlipidemia
h/o CVA 2013
Echo 04/01/2022: EF 55%, mild cLVH, stage II diastolic dysfunction, mild MAC, mild to moderate MR, mild AI
Echo 03/17/2024: Moderately reduced left ventricular systolic function with ejection fraction of 35%. Moderate tricuspid regurgitation and elevated pulmonary artery pressures estimated at 55-60 mmHg.
Impression:
Episode of unresponsiveness
New diagnosis of heart failure with reduced ejection fraction
Likely atrial fibrillation/tachycardia mediated
Paroxysmal/persistent atrial fibrillation with rapid ventricular response
Intolerance of amiodarone, poor candidate for sotalol, dofetilide, 1C drugs
She is planned for PVI 04/12/2024
Orthostatic hypotension with syncope/near syncope
CKD 3/4
Diabetes
CAD, remote LAD stent
Hypertension
Hyperlipidemia
Hypothyroidism
Plan:
Her episodes of unresponsiveness likely related to autonomic dysfunction and may have been exacerbated by the combination of AF with rapid ventricular response and hypotension provoked by carvedilol.
Carvedilol has been reduced back to 12.5 mg twice daily. (Her symptoms worsened when carvedilol was increased).
Given difficulty in controlling ventricular rates as well as hypotension associated with higher dose beta-gina, digoxin was initiated
Midodrine was added to help manage her orthostatic hypotension. This can be uptitrated if needed
Regarding atrial fibrillation, rates have been better controlled with the addition of digoxin
Continue current attempts at rate control which includes carvedilol as well as digoxin
Check digoxin level next week
She is planned for PVI April 12, 2024
Maintain Eliquis 2.5 mg twice daily (age 83, creatinine 1.6)
She now has heart failure with reduced ejection fraction which is likely tachycardia and atrial fibrillation mediated
Attempts at rate control as noted above, rates have improved
Maintain carvedilol 12.5 mg twice daily
Reluctant at this point to add additional guideline directed medical therapy given her propensity towards highly symptomatic hypotension
With rate control and hopefully rhythm control (upcoming PVI April 12, 2024) LVEF may improve
proBNP is elevated at 8650, there is elevated JVD on exam
Will give Lasix 20 mg IV now as she is currently volume overloaded with HFrEF, follow renal function and electrolytes closely
I discussed the plan with the patient and her son who is at bedside
Total time spent today was 54 minutes in preparing to see the patient, seeing the patient and coordination of care. This included review of recent laboratory evaluations, cardiac testing, imaging studies, medical records, as well as personally
interviewing and examining the patient, which included discussion of their tests, review/ordering medications, and communicating with other healthcare professionals and also treatment planning as well as counseling.
HPI: Yesenia is an 83 year old female with PMH of paroxysmal atrial fibrillation, CAD w/ prior PCI, improved CM, CKD 4, DM2, HTN, HLD, and prior TIA. She was recently admitted at 03/12 to 03/13 for lightheadedness and rapid afib. She was placed on
higher dose carvedilol 25mg BID and heart rates improved, so she was discharged and followed up with cardiology in the office on 03/14 to discuss ablation. She remained in afib with improved heart rates at that visit and has been arranged for
ablation 04/12/2024. Yesterday she was sitting at the table drinking a soda when she became somewhat unresponsive. She did not pass out or lose pulse, but was staring blankly ahead and dropped the cup that was in her hand. She came to [facility] for
evaluation and was in rapid atrial fibrillation. She notes since being placed on higher dose carvedilol, she has had an increase in her episodes of lightheadedness and notes typically symptoms occur with position change. She was admitted overnight
for observation and follow up. She feels well this AM while resting in bed. HR fairly well controlled on review of telemetry, in the 90s to 100s.
Progress Note - Chore Worker
Subjective
Date of Service: March 19, 2024
No chest pain shortness of breath or palpitations
Objective
Labs:
03/19/24 06:22
03/19/24 06:22
Labs
Hgb 12.0 g/dL (12.0-16.0) 03/19/24 06:22
Hct 36.9 % (37.0-47.0) L 03/19/24 06:22
Plt Count 126 10^3/uL (130-400) L 03/19/24 06:22
PT 21.3 Sec (11.4-14.6) H 03/17/24 09:52
INR 1.82 03/17/24 09:52
Sodium 135 mmol/L (135-145) 03/19/24 06:22
Potassium 4.3 mmol/L (3.5-5.1) 03/19/24 06:22
BUN 39 mg/dl (7-17) H 03/19/24 06:22
Creatinine 1.6 mg/dL (0.6-1.0) H 03/19/24 06:22
Glucose 207 mg/dl (70-99) H 03/19/24 06:22
Vital Signs and I&O:
Vital Signs
Temp Pulse Resp BP Pulse Ox
98.1 F 81 15 145/69 98
03/19/24 11:25 03/19/24 11:47 03/19/24 11:25 03/19/24 11:25 03/19/24 11:25
Vital Signs
Temp Pulse Resp BP Pulse Ox
98.1 F 81 15 145/69 98
03/19/24 11:25 03/19/24 11:47 03/19/24 11:25 03/19/24 11:25 03/19/24 11:25
Intake & Output
03/17/24 03/18/24 03/19/24 03/20/24
06:59 06:59 06:59 06:59
Intake Total 1600 / 1600
Output Total 100 / 100 400 / 400
Balance -100 / -100 1200 / 1200
Physical Exam
Physical Exam
Elderly woman frail-appearing no acute distress
Irregularly irregular normal S1 and S2, no S3 no S4 is a grade 1/6 apical holosystolic murmur no rubs
Lungs are clear to auscultation bilaterally
Abdomen soft nontender nondistended with normoactive bowel sounds
Extremities show trace pretibial edema bilaterally
--- NOTE | 2024-03-19 15:14 | CM ---
Chart reviewed. Care ongoing at this time
PT rec HH at d/c. Pt current w/ [facility]
Plan: Home w/ [facility]
[2024-03-19 16:17] LABS: Glucose - Point of Care 269 mg/dl (70-99)
[2024-03-19] MEDS: NOVOLOG FLEXPEN-LOW RESISTANCE 3 UNITS SC (16:30)
[2024-03-19] MEDS: LASIX 20 MG IV (16:31)
[2024-03-19] MEDS: ProAmatine PO (17:43)
[2024-03-19] MEDS: LIDOCAINE 4% PATCH 1 PATCH TOPICAL (18:04)
[2024-03-19 21:47] LABS: Glucose - Point of Care 219 mg/dl (70-99)
[2024-03-20] VITALS (7 sets, daily range): BP systolic 78–153; BP diastolic 50–89; PULSE 80–105; BMI 24.2
[2024-03-20] MEDS: SYNTHROID 75 MCG PO (06:21)
[2024-03-20 07:45] LABS: Glucose - Point of Care 253 mg/dl (70-99)
[2024-03-20] MEDS: NOVOLOG FLEXPEN 3 UNITS SC ×2 (08:15→11:47)
[2024-03-20] MEDS: NOVOLOG FLEXPEN-LOW RESISTANCE 3 UNITS SC ×2 (08:16→11:48)
[2024-03-20] MEDS: ELIQUIS 2.5 MG PO ×2 (08:17→21:29)
[2024-03-20] MEDS: ProAmatine 2.5 MG PO ×3 (08:17→17:05)
[2024-03-20] MEDS: VITAMIN B-12 1000 MCG PO (08:17)
[2024-03-20] MEDS: COREG 12.5 MG PO ×2 (08:17→21:28)
[2024-03-20 09:23] LABS: NT-proBNP 11200 pg/ml
[2024-03-20 09:36] LABS: Hematocrit 37.2 % (37.0-47.0); Hemoglobin 12.1 g/dL (12.0-16.0); Mean Corp Hgb Conc. 32.5 g/dL (33.0-37.0); Mean Corpuscular Hgb 29.4 pg (27.0-31.0); Mean Corpuscular Volume 90.5 fL (81.0-99.0); Mean Platelet Volume 11.2 fL (7.4-10.4); Platelet Count 137 10^3/uL (130-400); Red Blood Cell Count 4.11 10^6/uL (4.20-5.40); White Blood Cell Count 13.5 10^3/uL (4.8-10.8)
[2024-03-20 09:59] LABS: Albumin 3.9 g/dl (3.5-5.0); Blood Urea Nitrogen 44 mg/dl (7-17); Calcium 9.1 mg/dl (8.4-10.2); Carbon Dioxide 27 mmol/L (22-30); Chloride 99 mmol/L (98-107); Estimated Creatinine Clearance 23 ml/min; Glucose 256 mg/dl (70-99); Phosphorus 3.8 mg/dl (2.5-4.5); Potassium 4.4 mmol/L (3.5-5.1); Sodium 136 mmol/L (135-145); eGFR 27.61
--- NOTE | 2024-03-20 10:01 | W.PN.HOSP.TC ---
Today's Communication/Plan
-
Poorly controlled diabetes, adjusted insulin doses
Assessment / Plan
Assessment / Plan
Physical exam:
General: not Acutely ill
HEENT: Normocephalic, Atraumatic and Moist Mucous Membranes
Respiratory: Clear to Auscultation; Negative Wheezes, Rales or Rhonchi
Cardiac: Irregular rate and rhythm and S1/S2
GI: Soft, Nontender and Nondistended
Musculoskeletal: No Clubbing, No Cyanosis. Presence of bilateral lower extremity edema
Neuro: Awake, Alert and Oriented, no gross neurological deficit
Psych: Calm
Echocardiogram:
Normal left ventricular size.
Asymmetric septal hypertrophy.
Moderately reduced left ventricular systolic function.
LV ejection fraction is 35% by Christopher's method of discs.
Diastolic function indeterminate due to atrial fibrillation.
Normal right ventricular size.
Reduced right ventricular systolic function.
Trace aortic regurgitation.
Mitral sclerosis without stenosis.
Moderate tricuspid regurgitation.
Estimated pulmonary artery pressure of 55-60 mmHg assuming a right atrial
pressure of 8 mmHg.
The IVC is dilated and does not collapse.
Compared to 2022 echocardiogram Ejection fraction is now moderately reduced and
has dropped from 50-55% to 35%.
A/P:
Syncope:
This time it is likely related to hypotension but ultimately linked to her A-fib but also superimposed with an episode of UTI.
She had recent admission for A-fib RVR for which beta-gina was increased. Now beta-gina has to be decreased.
She has ablation scheduled for 04/12 by EP as outpatient. This might need to be reconsidered if needs to be done earlier.
Cardiology started her on digoxin, loaded with 250 mcg x 2 and now on 62.5 mcg daily. She was also started on midodrine 2.5 mg p.o. 3 times daily. Intolerant or poor candidate for some antiarrhythmics.
Echocardiogram updated and abnormal results as above.
Continue cardiac monitoring
Neurological workup unremarkable for acute finding but show some chronic abnormality on MRI of the brain. Neurology on board
Abnormal ultrasound of the abdomen but does not correlate clinically.
Discussed with daughter at bedside today on 03/19 and discussed all the tests results that we have during this hospitalization.
per cardiology: Continue diuresis with another 20mg IV lasix today
Continue digoxin, carvedilol
Continue Eliquis
PT OT eval
Paroxysmal versus persistent atrial fibrillation:
Rate control now Coreg 12.5 mg twice a day and digoxin 62.5 mg p.o. day
Anticoagulation Eliquis 2.5 mg twice a day
UTI:
Started on IV ceftriaxone 1 g daily
Cultures growing E. coli
Left ventricular systolic dysfunction:
EF 35% compared to 50 to 55% on last echocardiogram
Suspect related to tachyarrhythmia but deferred to cardiology if she requires further ischemic and nonischemic workup.
Monitor volume status closely
GDMT
Hyponatremia:
Improved
Sodium today 135
CKD stage IIIb:
Avoid nephrotoxic
Monitor renal function
CAD:
Chest pain-free
Continue current anti-ischemic regimen
History of s/p 3 mm Xience to prox LAD and bifurcation PTCA first diagonal and PTCA of OM1 superior and Inferior branches 02/2008
Diabetes mellitus type 2:
Uncontrolled.
Increase Lantus dose, add pre-meal insulin
Continue insulin sliding scale
Essential Hypertension:
Hypotension/probably orthostatic hypotension:
On midodrine
Hyperlipidemia:
Continue statin
Hypothyroidism:
Continue thyroid place
History of TIA/CVA:
On Eliquis and statin
DVT prophylaxis:
Eliquis
CODE STATUS:
Full code
Total time spent on today's encounter was 57 minutes which included time spent in counseling the patient/family regarding diagnosis and treatment plan as listed above, goals of care, and symptom management. Case was discussed with nursing staff,
specialists, and care coordinators/case management. All labs and imaging personally reviewed by me. Remainder the time spent in detailed review of previous records, lab data, imaging, and other medical provider documentation.
Anticipated Discharge: 24 - 48 hours
Subjective/Interval History
-
Date of Service: March 20, 2024
No chest pain
No sob
No fevers
Objective Data
-
Labs:
Laboratory Results
03/20/24
08:38
WBC 13.5 H
Hgb 12.1
Hct 37.2
Plt Count 137
Sodium 136
Potassium 4.4
Chloride 99
Carbon Dioxide 27
BUN 44 H
Creatinine 1.8 H
Glucose 256 H
Calcium 9.1
Vital Signs:
Vital Signs
Temp Pulse Resp BP Pulse Ox
98 F 97 20 138/88 96
03/20/24 07:33 03/20/24 07:33 03/20/24 07:33 03/20/24 07:33 03/20/24 07:33
I&O
03/19/24 03/20/24 03/21/24
06:59 06:59 06:59
Intake Total 1080 / 1080
Balance 1080 / 1080
[2024-03-20 11:09] LABS: Glucose - Point of Care 262 mg/dl (70-99)
--- NOTE | 2024-03-20 11:42 | W.PN.CARDCBS ---
Addendum entered and electronically signed by Litzy Damon DO 03/20/24 23:12:
I saw and examined the patient.
The Guzzler Builder's note was reviewed and I agree with the note.
Comment: I had the pleasure to meet Snow along with her daughter Snow at bedside. She is sitting out of bed to chair and feels less lightheadedness/dizziness. She continues to deny palpitations/tachycardia. She denies chest pain or pressure.
GEN: No distress, awake, alert, oriented x3
HEENT: mmm
LUNGS: Bronchovesicular breath sounds with fine crackles right base. Otherwise clear
CV; irregularly irregular, S1/S2, 1/6 syst murmur
EXT: trace edema b/l LE
Plan:
-Presented with recurrent lightheadedness w/ episode of decreased responsiveness. Did not lose consciousness.
-Episodes of unresponsiveness likely related to autonomic dysfunction, exacerbated by afib and hypotension.
-HR overall improving on coreg 12.5mg BID and digoxin 62.5 mcg daily.
-Check digoxin level
-add compression stockings
-BP/orthostasis improving w/ midodrine 2.5mg TID
-Continues on uninterrupted AC with Eliquis 2.5mg BID (Age, creat).
-She is planned for PVI 04/12/2024.
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
-Echo 03/17 with EF down to 35%, newly reduced.
-Continue Coreg 12.5mg BID. Uptitration of GDMT limited by orthostasis/hypotension.
-Also w/ evidence of acute HFrEF this admission. Weight noted to be up to 164lbs 03/17 and proBNP elevated at 11,200 03/20.
-Continue Lasix 20 mg IV daily
Original Note:
Today's Communication / Plan
-
Continue diuresis with another 20mg IV lasix today
Continue digoxin, carvedilol
Continue Eliquis
Impression / Plan
-
PCP: Susie Jarquin PA-C
Ax Survey Worker: Dr. Read
Impression:
Presented with lightheadedness
Paroxysmal Afib
Intolerance of amiodarone, poor candidate for sotalol, dofetilide, 1C drugs
Chronic Eliquis OAC
Planned for PVI 04/12/2024
Acute HFrEF, new diagnosis
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
Orthostatic hypotension
CAD
s/p 3 mm Xience to prox LAD and bifurcation PTCA first diagonal and PTCA of OM1 superior and Inferior branches 02/2008
Improved CM
CKD 3/4
Elevated LFTs
DM 2
HTN
Hyperlipidemia
h/o CVA 2013
Echo 04/01/2022: EF 55%, mild cLVH, stage II diastolic dysfunction, mild MAC, mild to moderate MR, mild AI
Echo 03/17/2024: EF 35%, moderate tricuspid regurgitation and elevated pulmonary artery pressures estimated at 55-60 mmHg.
Plan:
-Presented with recurrent lightheadedness w/ episode of decreased responsiveness. Did not lose consciousness, but was staring ahead, not responding to family, and dropped cup.
-Episodes of unresponsiveness likely related to autonomic dysfunction, exacerbated by afib and hypotension.
-HR overall improving on coreg 12.5mg BID and digoxin 62.5 mcg daily.
-BP/orthostasis improving w/ midodrine 2.5mg TID
-Continues on uninterrupted AC with Eliquis 2.5mg BID (Age, creat).
-She is planned for PVI 04/12/2024.
-Echo 03/17 with EF down to 35%, newly reduced. Suspect this is tachycardia mediated due to rapid afib.
-Continue Coreg 12.5mg BID. Uptitration of GDMT limited by orthostasis/hypotension.
-Also w/ evidence of acute HFrEF this admission. Weight noted to be up to 164lbs 03/17 and proBNP elevated at 11,200 2/.
-Would continue diuresis with IV lasix 20mg daily. Weight coming down, down to 154 lbs 2/. Creat stable at 1.8.
-K and mag stable.
-LE edema persists, will add compression stockings
HPI: Yesenia is an 83 year old female with PMH of paroxysmal atrial fibrillation, CAD w/ prior PCI, improved CM, CKD 4, DM2, HTN, HLD, and prior TIA. She was recently admitted at 03/12 to 03/13 for lightheadedness and rapid afib. She was placed on
higher dose carvedilol 25mg BID and heart rates improved, so she was discharged and followed up with cardiology in the office on 03/14 to discuss ablation. She remained in afib with improved heart rates at that visit and has been arranged for
ablation 04/12/2024. Yesterday she was sitting at the table drinking a soda when she became somewhat unresponsive. She did not pass out or lose pulse, but was staring blankly ahead and dropped the cup that was in her hand. She came to [facility] for
evaluation and was in rapid atrial fibrillation. She notes since being placed on higher dose carvedilol, she has had an increase in her episodes of lightheadedness and notes typically symptoms occur with position change. She was admitted overnight
for observation and follow up. She feels well this AM while resting in bed. HR fairly well controlled on review of telemetry, in the 90s to 100s.
Progress Note - Ax Survey Worker
Subjective
Date of Service: March 20, 2024
Still w/ LE edema
Objective
Labs:
03/20/24 08:38
03/20/24 08:38
Labs
Hgb 12.1 g/dL (12.0-16.0) 03/20/24 08:38
Hct 37.2 % (37.0-47.0) 03/20/24 08:38
Plt Count 137 10^3/uL (130-400) 03/20/24 08:38
PT 21.3 Sec (11.4-14.6) H 03/17/24 09:52
INR 1.82 03/17/24 09:52
Sodium 136 mmol/L (135-145) 03/20/24 08:38
Potassium 4.4 mmol/L (3.5-5.1) 03/20/24 08:38
BUN 44 mg/dl (7-17) H 03/20/24 08:38
Creatinine 1.8 mg/dL (0.6-1.0) H 03/20/24 08:38
Glucose 256 mg/dl (70-99) H 03/20/24 08:38
Vital Signs and I&O:
Vital Signs
Temp Pulse Resp BP Pulse Ox
98 F 97 20 138/88 96
03/20/24 07:33 03/20/24 07:33 03/20/24 07:33 03/20/24 07:33 03/20/24 07:33
Vital Signs
Temp Pulse Resp BP Pulse Ox
98 F 97 20 138/88 96
03/20/24 07:33 03/20/24 07:33 03/20/24 07:33 03/20/24 07:33 03/20/24 07:33
Intake & Output
03/18/24 03/19/24 03/20/24 03/21/24
06:59 06:59 06:59 06:59
Intake Total 1600 / 1600 1080 / 1080
Output Total 400 / 400
Balance 1200 / 1200 1080 / 1080
Physical Exam
Physical Exam
GEN: No distress, awake, alert, oriented x3
HEENT: supple, anicteric, mmm
LUNGS: CTA b/l, no wheezes/rales
CV; irregularly irregular, S1/S2, 1/6 syst murmur
EXT: No clubbing or cyanosis, trace edema b/l LE
NEURO: Gross non-focal
SKIN: Warm, dry, no rash
[2024-03-20] MEDS: ROCEPHIN 1000 MG IV (11:50)
[2024-03-20] MEDS: STERILE WATER FOR INJECTION 10 ML IV (11:50)
[2024-03-20] MEDS: LANOXIN 62.5 MCG PO (11:51)
[2024-03-20] MEDS: LASIX 20 MG IV (12:45)
[2024-03-20 12:52] LABS: % Basophils 0.4 % (0-2); % Eosinophils 1.6 % (0-6); % Immature Granulocytes 0.3 % (0-0.5); % Lymphocytes 42.6 % (20.5-51.1); % Monocytes 6.1 % (1.7-9.3); Absolute Basophils 0.1 10^3/uL (0-0.2); Absolute Eosinophils 0.2 10^3/uL (0-0.7); Absolute Lymphocytes 5.7 10^3/uL (1.2-3.4); Absolute Monocytes 0.8 10^3/uL (0.1-0.6); Absolute Neutrophils 6.6 10^3/uL (1.4-6.5); Nucleated Red Blood Cells % 0 %
[2024-03-20 15:53] LABS: Glucose - Point of Care 311 mg/dl (70-99)
--- NOTE | 2024-03-20 15:55 | CM ---
Chart reviewed and patient has switched to inpatient IMM completed and placed on chart. Plan is for patient to return to home with [facility], patient and spouse also interested in Palliative care, referral sent to Palliative care.
Plan; Home with [facility] and referral to palliative care.
[2024-03-20] MEDS: NOVOLOG FLEXPEN-LOW RESISTANCE 4 UNITS SC (17:04)
[2024-03-20] MEDS: NOVOLOG FLEXPEN 7 UNITS SC (17:05)
[2024-03-20 21:09] LABS: Glucose - Point of Care 158 mg/dl (70-99)
[2024-03-20] MEDS: CRESTOR 10 MG PO (21:28)
[2024-03-20] MEDS: LIDOCAINE 4% PATCH TOPICAL (21:28)
[2024-03-20] MEDS: LANTUS 0.11 UNITS SC (21:29)
[2024-03-21] VITALS (9 sets, daily range): BP systolic 80–150; BP diastolic 41–69; PULSE 61–98; BMI 23.9
[2024-03-21] MEDS: SYNTHROID 75 MCG PO (05:42)
[2024-03-21 07:23] LABS: Blood Urea Nitrogen 44 mg/dl (7-17); Calcium 9.6 mg/dl (8.4-10.2); Carbon Dioxide 29 mmol/L (22-30); Chloride 98 mmol/L (98-107); Digoxin 0.6 ng/ml (0.8-2.0); Estimated Creatinine Clearance 24 ml/min; Glucose 229 mg/dl (70-99); Potassium 4.3 mmol/L (3.5-5.1); Sodium 136 mmol/L (135-145); eGFR 29.57
[2024-03-21 08:04] LABS: Glucose - Point of Care 228 mg/dl (70-99)
[2024-03-21] MEDS: NOVOLOG FLEXPEN-LOW RESISTANCE 2 UNITS SC ×2 (08:40→11:22)
[2024-03-21] MEDS: NOVOLOG FLEXPEN 7 UNITS SC ×2 (08:40→11:22)
[2024-03-21] MEDS: COREG 12.5 MG PO ×2 (08:41→20:34)
[2024-03-21] MEDS: ELIQUIS 2.5 MG PO ×2 (08:41→20:34)
[2024-03-21] MEDS: ProAmatine 2.5 MG PO ×3 (08:41→12:46)
[2024-03-21] MEDS: VITAMIN B-12 1000 MCG PO (08:41)
--- NOTE | 2024-03-21 10:48 | W.PN.CARDCBS ---
Addendum entered and electronically signed by Royce Alarcon MD 03/21/24 14:46:
I saw and examined the patient.
The Transfer Station Operator's note was reviewed and I agree with the note.
Comment:
GEN: No distress, awake, Ox3
HEENT: supple, anicteric, mmm
LUNGS: CTA, no wheezes/rales
CV: Irreg, S1/S2, 1/6 syst LSB, no gallop
ABD: soft, BS+, NT/ND
EXT: No edema
NEURO: Gross non-focal
SKIN: No rash
Plan:
Still feels poorly with intermittent dizziness and lightheadedness. Will increase midodrine to 5 mg p.o. 3 times daily.
Continue Coreg, digoxin, and Eliquis.
Plan is to move up PVI to next week. Ideally we can stabilize her and get her discharged and have her come back as an outpatient.
Weight is overall down 10 pounds. Would hold on further diuresis for today and reassess in a.m.
Original Note:
Today's Communication / Plan
-
continue coreg, digoxin, eliquis, midodrine
continue IV lasix
consider for inpatient CV
She is planned for PVI 04/12/2024. will discuss potential for moving up with EP
Impression / Plan
-
PCP: Susie Jarquin PA-C
Advertising Teacher: Dr. Read
Impression:
Presented with lightheadedness
Paroxysmal Afib
Intolerance of amiodarone, poor candidate for sotalol, dofetilide, 1C drugs
Chronic Eliquis OAC
Planned for PVI 04/12/2024
Acute HFrEF, new diagnosis
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
Orthostatic hypotension
CAD
s/p 3 mm Xience to prox LAD and bifurcation PTCA first diagonal and PTCA of OM1 superior and Inferior branches 02/2008
CKD 3/4
Elevated LFTs
DM 2
HTN
Hyperlipidemia
h/o CVA 2013
Echo 04/01/2022: EF 55%, mild cLVH, stage II diastolic dysfunction, mild MAC, mild to moderate MR, mild AI
Echo 03/17/2024: EF 35%, moderate tricuspid regurgitation and elevated pulmonary artery pressures estimated at 55-60 mmHg.
Plan:
-Presented with recurrent lightheadedness w/ episode of decreased responsiveness. Did not lose consciousness, but was staring ahead, not responding to family, and dropped cup.
-Episodes of unresponsiveness likely related to autonomic dysfunction, exacerbated by afib and hypotension.
-reports she remains the same with dizziness/lightheadedness with movement.
-currently HRs adequate in afib ~100 BPM on coreg 12.5mg BID and digoxin 62.5mcg daily. dig level 0.6 on 03/21.
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 continue coreg. GDMT uptitration limited by orthostasis/hypotension
-probNP 06272. being diuresed with IV lasix 20mg daily. weights trending down if accurate. Cr stable at 1.7. was not on diuretic prior to admission
-also on midodrine 2.5mg TID and with compression stockings in place.
-She is planned for PVI 04/12/2024. will discuss potential for moving up with EP. could consider for CV prior to DC.
HPI: Yesenia is an 83 year old female with PMH of paroxysmal atrial fibrillation, CAD w/ prior PCI, improved CM, CKD 4, DM2, HTN, HLD, and prior TIA. She was recently admitted at 03/12 to 03/13 for lightheadedness and rapid afib. She was placed on
higher dose carvedilol 25mg BID and heart rates improved, so she was discharged and followed up with cardiology in the office on 03/14 to discuss ablation. She remained in afib with improved heart rates at that visit and has been arranged for
ablation 04/12/2024. Yesterday she was sitting at the table drinking a soda when she became somewhat unresponsive. She did not pass out or lose pulse, but was staring blankly ahead and dropped the cup that was in her hand. She came to [facility] for
evaluation and was in rapid atrial fibrillation. She notes since being placed on higher dose carvedilol, she has had an increase in her episodes of lightheadedness and notes typically symptoms occur with position change. She was admitted overnight
for observation and follow up. She feels well this AM while resting in bed. HR fairly well controlled on review of telemetry, in the 90s to 100s.
Progress Note - Advertising Teacher
Subjective
Date of Service: March 21, 2024
reports feeling unchanged. remains with lightheadedness/dizziness with movement
Objective
Labs:
03/20/24 08:38
03/21/24 06:38
Labs
Hgb 12.1 g/dL (12.0-16.0) 03/20/24 08:38
Hct 37.2 % (37.0-47.0) 03/20/24 08:38
Plt Count 137 10^3/uL (130-400) 03/20/24 08:38
PT 21.3 Sec (11.4-14.6) H 03/17/24 09:52
INR 1.82 03/17/24 09:52
Sodium 136 mmol/L (135-145) 03/21/24 06:38
Potassium 4.3 mmol/L (3.5-5.1) 03/21/24 06:38
BUN 44 mg/dl (7-17) H 03/21/24 06:38
Creatinine 1.7 mg/dL (0.6-1.0) H 03/21/24 06:38
Glucose 229 mg/dl (70-99) H 03/21/24 06:38
Digoxin 0.6 ng/ml (0.8-2.0) L 03/21/24 06:38
Vital Signs and I&O:
Vital Signs
Temp Pulse Resp BP Pulse Ox
98.4 F 76 16 145/68 94
03/21/24 07:06 03/21/24 07:06 03/21/24 07:06 03/21/24 07:06 03/21/24 07:06
Vital Signs
Temp Pulse Resp BP Pulse Ox
98.4 F 76 16 145/68 94
03/21/24 07:06 03/21/24 07:06 03/21/24 07:06 03/21/24 07:06 03/21/24 07:06
Intake & Output
03/19/24 03/20/24 03/21/24 03/22/24
07:59 07:59 07:59 07:59
Intake Total 1080 / 1080 1320 / 1320 180 / 180
Balance 1080 / 1080 1320 / 1320 180 / 180
Physical Exam
Physical Exam
GEN: No distress, awake, alert, oriented x3
HEENT: supple, anicteric, mmm, eomi
LUNGS: Mild exp wheezes
CV: Irreg, S1/S2, no murmur
ABD: soft, BS+, NT/ND
EXT: No cyanosis, clubbing. trace edema of B/L LE
NEURO: Gross non-focal
SKIN: Warm, pink, dry. No rash
[2024-03-21 11:18] LABS: Glucose - Point of Care 236 mg/dl (70-99)
[2024-03-21] MEDS: LANOXIN 62.5 MCG PO (11:23)
[2024-03-21] MEDS: ROCEPHIN 1000 MG IV (11:24)
[2024-03-21] MEDS: STERILE WATER FOR INJECTION 10 ML IV (11:24)
--- NOTE | 2024-03-21 12:11 | W.PN.HOSP.TC ---
Today's Communication/Plan
-
Still uncontrolled blood glucose
Increase Lantus, Pre-meal insulin
Assessment / Plan
Assessment / Plan
Physical exam:
General: not Acutely ill
HEENT: Normocephalic, Atraumatic and Moist Mucous Membranes
Respiratory: Clear to Auscultation; Negative Wheezes, Rales or Rhonchi
Cardiac: Irregular rate and rhythm and S1/S2
GI: Soft, Nontender and Nondistended
Musculoskeletal: No Clubbing, No Cyanosis. Presence of bilateral lower extremity edema
Neuro: Awake, Alert and Oriented, no gross neurological deficit
Psych: Calm
Echocardiogram:
Normal left ventricular size.
Asymmetric septal hypertrophy.
Moderately reduced left ventricular systolic function.
LV ejection fraction is 35% by Christopher's method of discs.
Diastolic function indeterminate due to atrial fibrillation.
Normal right ventricular size.
Reduced right ventricular systolic function.
Trace aortic regurgitation.
Mitral sclerosis without stenosis.
Moderate tricuspid regurgitation.
Estimated pulmonary artery pressure of 55-60 mmHg assuming a right atrial
pressure of 8 mmHg.
The IVC is dilated and does not collapse.
Compared to 2022 echocardiogram Ejection fraction is now moderately reduced and
has dropped from 50-55% to 35%.
A/P:
Syncope:
This time it is likely related to hypotension but ultimately linked to her A-fib but also superimposed with an episode of UTI.
She had recent admission for A-fib RVR for which beta-gina was increased. Now beta-gina has to be decreased.
She has ablation scheduled for 04/12 by EP as outpatient. This might need to be reconsidered if needs to be done earlier.
Cardiology started her on digoxin, loaded with 250 mcg x 2 and now on 62.5 mcg daily. She was also started on midodrine 2.5 mg p.o. 3 times daily. Intolerant or poor candidate for some antiarrhythmics.
Echocardiogram updated and abnormal results as above.
Continue cardiac monitoring
Neurological workup unremarkable for acute finding but show some chronic abnormality on MRI of the brain. Neurology on board
Abnormal ultrasound of the abdomen but does not correlate clinically.
Discussed with daughter at bedside today on 03/19 and discussed all the tests results that we have during this hospitalization.
per cardiology:s/p Lasix.
Continue digoxin, carvedilol. Dig level is 0.6 ( low)
Continue Eliquis
PT OT eval
Paroxysmal versus persistent atrial fibrillation:
Rate control now Coreg 12.5 mg twice a day and digoxin 62.5 mg p.o. day
Anticoagulation Eliquis 2.5 mg twice a day
UTI:
Started on IV ceftriaxone 1 g daily day #3
Cultures growing E. coli
Left ventricular systolic dysfunction:
EF 35% compared to 50 to 55% on last echocardiogram
Suspect related to tachyarrhythmia but deferred to cardiology if she requires further ischemic and nonischemic workup.
Monitor volume status closely
GDMT
Hyponatremia:
Improved
Sodium today 135
CKD stage IIIb:
Avoid nephrotoxic
Monitor renal function
CAD:
Chest pain-free
Continue current anti-ischemic regimen
History of s/p 3 mm Xience to prox LAD and bifurcation PTCA first diagonal and PTCA of OM1 superior and Inferior branches 02/2008
Diabetes mellitus type 2:
Still Uncontrolled.
Increase Lantus dose to 15 units , increase pre-meal dose of insulin
Continue insulin sliding scale
Essential Hypertension:
Hypotension/probably orthostatic hypotension:
On midodrine
Hyperlipidemia:
Continue statin
Hypothyroidism:
Continue thyroid place
History of TIA/CVA:
On Eliquis and statin
DVT prophylaxis:
Eliquis
CODE STATUS:
Full code
Total time spent on today's encounter was 57 minutes which included time spent in counseling the patient/family regarding diagnosis and treatment plan as listed above, goals of care, and symptom management. Case was discussed with nursing staff,
specialists, and care coordinators/case management. All labs and imaging personally reviewed by me. Remainder the time spent in detailed review of previous records, lab data, imaging, and other medical provider documentation.
Anticipated Discharge: Within 24 hours
Subjective/Interval History
-
Date of Service: March 21, 2024
No chest pain
No sob
Objective Data
-
Labs:
Laboratory Results
03/21/24
06:38
Sodium 136
Potassium 4.3
Chloride 98
Carbon Dioxide 29
BUN 44 H
Creatinine 1.7 H
Glucose 229 H
Calcium 9.6
Vital Signs:
Vital Signs
Temp Pulse Resp BP Pulse Ox
97.8 F 75 16 136/62 97
03/21/24 11:24 03/21/24 11:24 03/21/24 11:24 03/21/24 11:24 03/21/24 11:24
I&O
03/20/24 03/21/24 03/22/24
06:59 06:59 06:59
Intake Total 1080 / 1080 1320 / 1320 180 / 180
Balance 1080 / 1080 1320 / 1320 180 / 180
[2024-03-21] MEDS: ProAmatine PO (12:47)
--- NOTE | 2024-03-21 13:11 | PN.CDI ---
Addendum entered and electronically signed by Martir Wei MD 03/21/24 13:28:
Stage 1 left buttock pressure injury POA and stage 2 right pressure injury POA.
Original Note:
CDI
- -
CDI:
Physician Documentation Request
Admit Date: 03/20/24 10:18
Dear Doctor Eriberto,
Please review the following and provide your response in the progress notes.
Clinical Indicators:
Pt admitted with syncope, acute systolic heart failure, Afib and UTI.
03/17 in would panel RN noted on admission assessment stage 1 left buttock pressure injury POA and stage 2 right pressure injury POA.
Physician documentation of the type and location of wounds is required for compliant documentation. Based on the above clinical findings and your assessment, please provide the following in your progress note:
1. Location of the ulcer/wound, including laterality.
2. Type (etiology) of ulcer/wound:
Right and Left Buttock pressure injury POA
Non-pressure injuries POA
Other
Use of terms such as suspected, likely, concern for, or probable (associated with a specific diagnosis that is being evaluated, monitored, or treated as if it exists) are acceptable and can be coded in the inpatient setting, when documented at the
time of discharge.
Thank you,
Daiana Mccain RN, BSN
CDI Specialist
[place] [employer]
Please use your independent medical judgment in providing your response.
*Source: National Pressure Ulcer Advisory Panel (NPUAP)
[2024-03-21 16:48] LABS: Glucose - Point of Care 186 mg/dl (70-99)
[2024-03-21] MEDS: NOVOLOG FLEXPEN-LOW RESISTANCE 1 UNITS SC (16:58)
[2024-03-21] MEDS: NOVOLOG FLEXPEN 8 UNITS SC (16:58)
[2024-03-21] MEDS: ProAmatine 5 MG PO (16:59)
[2024-03-21] MEDS: LIDOCAINE 4% PATCH TOPICAL (20:35)
[2024-03-21 21:38] LABS: Glucose - Point of Care 168 mg/dl (70-99)
[2024-03-21] MEDS: LANTUS 0.15 UNITS SC (21:47)
[2024-03-21] MEDS: CRESTOR 10 MG PO (21:47)
[2024-03-22] VITALS (7 sets, daily range): BP systolic 105–152; BP diastolic 6–88; PULSE 69–89; BMI 23.4
[2024-03-22] MEDS: SYNTHROID 75 MCG PO (05:39)
[2024-03-22] MEDS: LIDOCAINE 4% PATCH 1 PATCH TOPICAL (05:40)
[2024-03-22 07:46] LABS: Glucose - Point of Care 179 mg/dl (70-99)
--- NOTE | 2024-03-22 08:39 | W.PN.HOSP.TC ---
Today's Communication/Plan
-
Adjust insulin doses
Midodrine 5 mg TID
Assessment / Plan
Assessment / Plan
Physical exam:
General: not Acutely ill
HEENT: Normocephalic, Atraumatic and Moist Mucous Membranes
Respiratory: Clear to Auscultation; Negative Wheezes, Rales or Rhonchi
Cardiac: Irregular rate and rhythm and S1/S2
GI: Soft, Nontender and Nondistended
Musculoskeletal: No Clubbing, No Cyanosis. Presence of bilateral lower extremity edema
Neuro: Awake, Alert and Oriented, no gross neurological deficit
Psych: Calm
Echocardiogram:
Normal left ventricular size.
Asymmetric septal hypertrophy.
Moderately reduced left ventricular systolic function.
LV ejection fraction is 35% by Christopher's method of discs.
Diastolic function indeterminate due to atrial fibrillation.
Normal right ventricular size.
Reduced right ventricular systolic function.
Trace aortic regurgitation.
Mitral sclerosis without stenosis.
Moderate tricuspid regurgitation.
Estimated pulmonary artery pressure of 55-60 mmHg assuming a right atrial
pressure of 8 mmHg.
The IVC is dilated and does not collapse.
Compared to 2022 echocardiogram Ejection fraction is now moderately reduced and
has dropped from 50-55% to 35%.
A/P:
Syncope:
This time it is likely related to hypotension but ultimately linked to her A-fib but also superimposed with an episode of UTI.
She had recent admission for A-fib RVR for which beta-gina was increased. Now beta-gina has to be decreased.
She has ablation scheduled for 04/12 by EP as outpatient. This might need to be reconsidered if needs to be done earlier.
Cardiology started her on digoxin, loaded with 250 mcg x 2 and now on 62.5 mcg daily. She was also started on midodrine 2.5 mg p.o. 3 times daily. Intolerant or poor candidate for some antiarrhythmics.
Echocardiogram updated and abnormal results as above.
Continue cardiac monitoring
Neurological workup unremarkable for acute finding but show some chronic abnormality on MRI of the brain. Neurology on board
Abnormal ultrasound of the abdomen but does not correlate clinically.
Discussed with daughter at bedside today on 03/19 and discussed all the tests results that we have during this hospitalization.
per cardiology:s/p Lasix.
Continue digoxin, carvedilol. Dig level is 0.6 ( low)
Continue Eliquis
PT OT eval
Paroxysmal versus persistent atrial fibrillation:
Rate control now Coreg 12.5 mg twice a day and digoxin 62.5 mg p.o. day
Anticoagulation Eliquis 2.5 mg twice a day
UTI:
Started on IV ceftriaxone 1 g daily day #4
Cultures growing E. coli
Left ventricular systolic dysfunction:
EF 35% compared to 50 to 55% on last echocardiogram
Suspect related to tachyarrhythmia but deferred to cardiology if she requires further ischemic and nonischemic workup.
Monitor volume status closely
GDMT
Hyponatremia:
Improved
Sodium today 135
CKD stage IIIb:
Avoid nephrotoxic
Monitor renal function
CAD:
Chest pain-free
Continue current anti-ischemic regimen
History of s/p 3 mm Xience to prox LAD and bifurcation PTCA first diagonal and PTCA of OM1 superior and Inferior branches 02/2008
Diabetes mellitus type 2:
better controlled.
Increased Lantus dose to 15 units , increased pre-meal dose of insulin
Continue insulin sliding scale
Essential Hypertension:
Hypotension/probably orthostatic hypotension:
On midodrine
Hyperlipidemia:
Continue statin
Hypothyroidism:
Continue thyroid place
History of TIA/CVA:
On Eliquis and statin
DVT prophylaxis:
Eliquis
CODE STATUS:
Full code
Total time spent on today's encounter was 55 minutes which included time spent in counseling the patient/family regarding diagnosis and treatment plan as listed above, goals of care, and symptom management. Case was discussed with nursing staff,
specialists, and care coordinators/case management. All labs and imaging personally reviewed by me. Remainder the time spent in detailed review of previous records, lab data, imaging, and other medical provider documentation.
Anticipated Discharge: Within 24 hours
Subjective/Interval History
-
Date of Service: March 22, 2024
.
Objective Data
-
Vital Signs:
Vital Signs
Temp Pulse Resp BP Pulse Ox
98.7 F 84 16 141/78 96
03/22/24 03:10 03/22/24 03:10 03/22/24 03:10 03/22/24 03:10 03/22/24 03:10
I&O
03/21/24 03/22/24 03/23/24
06:59 06:59 06:59
Intake Total 1320 / 1320 1320 / 1320
Balance 1320 / 1320 1320 / 1320
[2024-03-22] MEDS: NOVOLOG FLEXPEN-LOW RESISTANCE 1 UNITS SC (08:49)
[2024-03-22] MEDS: COREG 12.5 MG PO ×2 (08:49→20:43)
[2024-03-22] MEDS: NOVOLOG FLEXPEN 8 UNITS SC ×3 (08:49→17:02)
[2024-03-22] MEDS: ELIQUIS 2.5 MG PO ×2 (08:50→20:43)
[2024-03-22] MEDS: VITAMIN B-12 1000 MCG PO (08:50)
[2024-03-22] MEDS: ProAmatine 5 MG PO ×3 (08:50→18:38)
[2024-03-22 10:28] LABS: Hematocrit 37.8 % (37.0-47.0); Hemoglobin 12.4 g/dL (12.0-16.0); Mean Corp Hgb Conc. 32.8 g/dL (33.0-37.0); Mean Corpuscular Hgb 30.1 pg (27.0-31.0); Mean Corpuscular Volume 91.7 fL (81.0-99.0); Mean Platelet Volume 11.3 fL (7.4-10.4); Platelet Count 157 10^3/uL (130-400); Red Blood Cell Count 4.12 10^6/uL (4.20-5.40); Red Cell Dist. Width 14.9 % (11.5-14.5); White Blood Cell Count 13.7 10^3/uL (4.8-10.8)
[2024-03-22 11:11] LABS: Glucose - Point of Care 302 mg/dl (70-99)
[2024-03-22 11:19] LABS: Blood Urea Nitrogen 41 mg/dl (7-17); Calcium 9.7 mg/dl (8.4-10.2); Carbon Dioxide 31 mmol/L (22-30); Chloride 95 mmol/L (98-107); Estimated Creatinine Clearance 26 ml/min; Glucose 282 mg/dl (70-99); Potassium 4.1 mmol/L (3.5-5.1); Sodium 135 mmol/L (135-145)
--- NOTE | 2024-03-22 11:34 | W.PN.CARDCBS ---
Addendum entered and electronically signed by Royce Alarcon MD 03/22/24 12:27:
I saw and examined the patient.
The Lobbyist's note was reviewed and I agree with the note.
Comment:
GEN: No distress, awake, Ox3
HEENT: supple, anicteric, mmm
LUNGS: CTA, no wheezes/rales
CV: Irreg, S1/S2, 1/6 syst LSB, no gallop
ABD: soft, BS+, NT/ND
EXT: No edema
NEURO: Gross non-focal
SKIN: No rash
Plan:
A-fib remains rate controlled. Continue Coreg and digoxin.
Will continue midodrine to help with orthostasis. Will increase activity.
Plan is for PVI next week.
Hopefully we can optimize her and get her out of the hospital and come back for her PVI as outpatient.
Original Note:
Today's Communication / Plan
-
ambulate patient
continue midodrine, compression stockings
HRs controlled in afib on coreg, digoxin
follow volume status
for PVI 03/29/24
DC planning
Impression / Plan
-
PCP: Susie Jarquin PA-C
Final Touch Up Painter: Dr. Read
Impression:
Presented with lightheadedness
Paroxysmal Afib
Intolerance of amiodarone, poor candidate for sotalol, dofetilide, 1C drugs
Chronic Eliquis OAC
Planned for PVI 04/12/2024
Acute HFrEF, new diagnosis
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
Orthostatic hypotension
CAD
s/p 3 mm Xience to prox LAD and bifurcation PTCA first diagonal and PTCA of OM1 superior and Inferior branches 02/2008
CKD 3/4
Elevated LFTs
DM 2
HTN
Hyperlipidemia
h/o CVA 2013
Echo 04/01/2022: EF 55%, mild cLVH, stage II diastolic dysfunction, mild MAC, mild to moderate MR, mild AI
Echo 03/17/2024: EF 35%, moderate tricuspid regurgitation and elevated pulmonary artery pressures estimated at 55-60 mmHg.
Plan:
-Presented with recurrent lightheadedness w/ episode of decreased responsiveness. Did not lose consciousness, but was staring ahead, not responding to family, and dropped cup.
-she reports lightheadedness with ambulation
-currently HRs controlled in afib on coreg 12.5mg BID and digoxin 62.5mcg daily. dig level 0.6 on 03/21.
-continue eliquis
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 continue coreg. GDMT uptitration limited by orthostasis/hypotension. on midodrine 5mg TID
-proBNP 55542 on admission. was diuresed with improvement, holding on further diuretics for now. weights trending down if accurate. Cr stable at 1.6. was not on diuretic prior to admission
-continue compression stockings
-d/w EP, now planned for PVI 03/29/24.
-ambulate with PT today. d/w nursing
-DC planning
HPI: Yesenia is an 83 year old female with PMH of paroxysmal atrial fibrillation, CAD w/ prior PCI, improved CM, CKD 4, DM2, HTN, HLD, and prior TIA. She was recently admitted at 03/12 to 03/13 for lightheadedness and rapid afib. She was placed on
higher dose carvedilol 25mg BID and heart rates improved, so she was discharged and followed up with cardiology in the office on 03/14 to discuss ablation. She remained in afib with improved heart rates at that visit and has been arranged for
ablation 04/12/2024. Yesterday she was sitting at the table drinking a soda when she became somewhat unresponsive. She did not pass out or lose pulse, but was staring blankly ahead and dropped the cup that was in her hand. She came to [facility] for
evaluation and was in rapid atrial fibrillation. She notes since being placed on higher dose carvedilol, she has had an increase in her episodes of lightheadedness and notes typically symptoms occur with position change. She was admitted overnight
for observation and follow up. She feels well this AM while resting in bed. HR fairly well controlled on review of telemetry, in the 90s to 100s.
Progress Note - Final Touch Up Painter
Subjective
Date of Service: March 22, 2024
reports feels fine with lying or sitting. she was able to ambulate to doorway several times without issues
Objective
Labs:
03/22/24 09:46
03/22/24 09:46
Labs
Hgb 12.4 g/dL (12.0-16.0) 03/22/24 09:46
Hct 37.8 % (37.0-47.0) 03/22/24 09:46
Plt Count 157 10^3/uL (130-400) 03/22/24 09:46
PT 21.3 Sec (11.4-14.6) H 03/17/24 09:52
INR 1.82 03/17/24 09:52
Sodium 135 mmol/L (135-145) 03/22/24 09:46
Potassium 4.1 mmol/L (3.5-5.1) 03/22/24 09:46
BUN 41 mg/dl (7-17) H 03/22/24 09:46
Creatinine 1.6 mg/dL (0.6-1.0) H 03/22/24 09:46
Glucose 282 mg/dl (70-99) H 03/22/24 09:46
Digoxin 0.6 ng/ml (0.8-2.0) L 03/21/24 06:38
Vital Signs and I&O:
Vital Signs
Temp Pulse Resp BP Pulse Ox
97.8 F 83 18 115/60 96
03/22/24 07:00 03/22/24 07:00 03/22/24 07:00 03/22/24 07:00 03/22/24 07:00
Vital Signs
Temp Pulse Resp BP Pulse Ox
97.8 F 83 18 115/60 96
03/22/24 07:00 03/22/24 07:00 03/22/24 07:00 03/22/24 07:00 03/22/24 07:00
Intake & Output
03/20/24 03/21/24 03/22/24 03/23/24
07:59 07:59 07:59 07:59
Intake Total 1080 / 1080 1320 / 1320 1320 / 1320
Balance 1080 / 1080 1320 / 1320 1320 / 1320
Physical Exam
Physical Exam
GEN: No distress, awake, alert, oriented x3. sitting in chair
HEENT: supple, anicteric, mmm, eomi
LUNGS: CTA anterolaterally B/L
CV: Irreg, S1/S2, no murmur
ABD: soft, BS+, NT/ND
EXT: No cyanosis, clubbing. trace-1+ edema of B/L LE
NEURO: Gross non-focal
SKIN: Warm, pink, dry. No rash
[2024-03-22] MEDS: NOVOLOG FLEXPEN-LOW RESISTANCE 4 UNITS SC (11:42)
[2024-03-22] MEDS: LANOXIN 62.5 MCG PO (13:20)
[2024-03-22] MEDS: ROCEPHIN 1000 MG IV (13:21)
[2024-03-22] MEDS: STERILE WATER FOR INJECTION 10 ML IV (13:21)
--- NOTE | 2024-03-22 15:34 | CM ---
Patient to return to home when stable with [facility], Palliative care.
Plan; Home with [facility].
[2024-03-22 16:49] LABS: Glucose - Point of Care 237 mg/dl (70-99)
[2024-03-22] MEDS: NOVOLOG FLEXPEN-LOW RESISTANCE 2 UNITS SC (17:03)
[2024-03-22] MEDS: ProAmatine PO (17:10)
[2024-03-22 21:32] LABS: Glucose - Point of Care 190 mg/dl (70-99)
[2024-03-22] MEDS: LANTUS 0.15 UNITS SC (22:18)
[2024-03-22] MEDS: CRESTOR 10 MG PO (22:19)
[2024-03-23] VITALS (7 sets, daily range): BP systolic 100–142; BP diastolic 39–62; PULSE 71–79; O2SAT 96; BMI 23.7
[2024-03-23] MEDS: SYNTHROID 75 MCG PO (05:18)
[2024-03-23 07:39] LABS: Glucose - Point of Care 202 mg/dl (70-99)
[2024-03-23] MEDS: NOVOLOG FLEXPEN-LOW RESISTANCE 2 UNITS SC (08:46)
[2024-03-23] MEDS: NOVOLOG FLEXPEN 8 UNITS SC (08:48)
[2024-03-23] MEDS: ELIQUIS 2.5 MG PO ×2 (08:51→20:06)
[2024-03-23] MEDS: VITAMIN B-12 1000 MCG PO (08:52)
[2024-03-23] MEDS: ProAmatine 5 MG PO ×3 (08:52→18:41)
[2024-03-23] MEDS: COREG 12.5 MG PO ×2 (08:56→20:07)
[2024-03-23] MEDS: LANTUS 0.1 UNITS SC (09:09)
--- NOTE | 2024-03-23 10:37 | W.PN.HOSP.TC ---
Today's Communication/Plan
-
c/w Midodrine TID dose, do not hold
Assessment / Plan
Assessment / Plan
Physical exam:
General: not Acutely ill
HEENT: Normocephalic, Atraumatic and Moist Mucous Membranes
Respiratory: Clear to Auscultation; Negative Wheezes, Rales or Rhonchi
Cardiac: Irregular rate and rhythm and S1/S2
GI: Soft, Nontender and Nondistended
Musculoskeletal: No Clubbing, No Cyanosis. No bilateral lower extremity edema
Neuro: Awake, Alert and Oriented, no gross neurological deficit
Psych: Calm
Echocardiogram:
Normal left ventricular size.
Asymmetric septal hypertrophy.
Moderately reduced left ventricular systolic function.
LV ejection fraction is 35% by Christopher's method of discs.
Diastolic function indeterminate due to atrial fibrillation.
Normal right ventricular size.
Reduced right ventricular systolic function.
Trace aortic regurgitation.
Mitral sclerosis without stenosis.
Moderate tricuspid regurgitation.
Estimated pulmonary artery pressure of 55-60 mmHg assuming a right atrial
pressure of 8 mmHg.
The IVC is dilated and does not collapse.
Compared to 2022 echocardiogram Ejection fraction is now moderately reduced and
has dropped from 50-55% to 35%.
A/P:
Syncope:
This time it is likely related to hypotension but ultimately linked to her A-fib but also superimposed with an episode of UTI.
She had recent admission for A-fib RVR for which beta-gina was increased. Now beta-gina has to be decreased.
She has ablation scheduled for 04/12 by EP as outpatient. This might need to be reconsidered if needs to be done earlier.
Cardiology started her on digoxin, loaded with 250 mcg x 2 and now on 62.5 mcg daily. She was also started on midodrine 2.5 mg p.o. 3 times daily. Midodrine dose was increased to 5 mg 3 times daily.
Echocardiogram updated and abnormal results as above.
Continue cardiac monitoring
Neurological workup unremarkable for acute finding but show some chronic abnormality on MRI of the brain. Neurology on board
Abnormal ultrasound of the abdomen but does not correlate clinically.
per cardiology:s/p Lasix.
Continue digoxin, carvedilol. Dig level is 0.6. A-fib remains rate controlled. Continue Coreg and digoxin.
Continue Eliquis
PT OT eval
#Paroxysmal versus persistent atrial fibrillation:
Rate control now Coreg 12.5 mg twice a day and digoxin 62.5 mg p.o. day
Anticoagulation Eliquis 2.5 mg twice a day
#CLL -persistent leukocytosis
No fevers. Did not requite treatments in the past.
UTI:
Started on IV ceftriaxone 1 g daily day #5 ( last dose)
Cultures growing E. coli
Left ventricular systolic dysfunction:
EF 35% compared to 50 to 55% on last echocardiogram
Suspect related to tachyarrhythmia but deferred to cardiology if she requires further ischemic and nonischemic workup.
Monitor volume status closely
GDMT
Hyponatremia:
Improved
Sodium today 135
CKD stage IIIb:
Avoid nephrotoxic
Monitor renal function
CAD:
Chest pain-free
Continue current anti-ischemic regimen
History of s/p 3 mm Xience to prox LAD and bifurcation PTCA first diagonal and PTCA of OM1 superior and Inferior branches 02/2008
Diabetes mellitus type 2:
better controlled.
Increased Lantus dose to 15 units , increased pre-meal dose of insulin
Continue insulin sliding scale
Essential Hypertension:
Hypotension/probably orthostatic hypotension:
On midodrine
Hyperlipidemia:
Continue statin
Hypothyroidism:
Continue thyroid place
History of TIA/CVA:
On Eliquis and statin
DVT prophylaxis:
Eliquis
CODE STATUS:
Full code
Total time spent to see the patient, examine the patient, review data and lab results, discuss treatment plan with patient and nursing staff around 55 minutes
Anticipated Discharge: 24 - 48 hours
Subjective/Interval History
-
Date of Service: March 23, 2024
No chest pain
No sob
Not dizzy while sitting in chair but has not walked around yet
Objective Data
-
Vital Signs:
Vital Signs
Temp Pulse Resp BP Pulse Ox
98.1 F 71 18 142/58 96
03/23/24 07:00 03/23/24 07:00 03/23/24 07:00 03/23/24 07:00 03/23/24 07:00
I&O
03/22/24 03/23/24 03/24/24
06:59 06:59 06:59
Intake Total 1320 / 1320 1440 / 1440 960 / 960
Balance 1320 / 1320 1440 / 1440 960 / 960
[2024-03-23 11:19] LABS: Glucose - Point of Care 266 mg/dl (70-99)
[2024-03-23] MEDS: NOVOLOG FLEXPEN-LOW RESISTANCE 3 UNITS SC (11:43)
[2024-03-23] MEDS: NOVOLOG FLEXPEN 20 UNITS SC ×2 (11:43→18:38)
[2024-03-23] MEDS: LANOXIN 62.5 MCG PO (11:45)
[2024-03-23] MEDS: ROCEPHIN 1000 MG IV (11:45)
[2024-03-23] MEDS: STERILE WATER FOR INJECTION 10 ML IV (11:46)
[2024-03-23] MEDS: FLUSH (NSS) 2 FLUSH IV (11:47)
--- NOTE | 2024-03-23 15:38 | CM ---
Pt is not medically ready for discharge today. CM will continue to follow for discharge to home with [facility] and palliative care.
--- NOTE | 2024-03-23 16:03 | W.PN.CARDCBS ---
Addendum entered and electronically signed by Cam Read MD 03/23/24 16:13:
I saw and examined the patient.
The FORM STRIPPER or PA's note was reviewed and I agree with the note.
Comment: General: Well developed, well nourished in NAD.
Neck: Supple, no JVD, HJR, carotids +2 B/L, no bruits bilaterally.
Heart: Non displaced PMI, Irregular, no murmurs, No S3, S4, no rubs.
Lungs: Scattered rhonchi
Extremities: No clubbing, cyanosis or edema bilaterally.
Neuro: Grossly nonfocal, awake, alert and oriented x3.
Heart rate control in A-fib is reasonable. Continue Coreg, dig, Eliquis. Has outpatient ablation scheduled for 03/29. Stable cardiac status. Will sign off, call with questions.
Original Note:
Today's Communication / Plan
-
continue coreg, dig, eliquis
planned for ablation 03/29
follow volume status
Impression / Plan
-
PCP: Susie Jarquin PA-C
Duty Manager: Dr. Read
Impression:
Presented with lightheadedness
Paroxysmal Afib
Intolerance of amiodarone, poor candidate for sotalol, dofetilide, 1C drugs
Chronic Eliquis OAC
Planned for PVI 04/12/2024
Acute HFrEF, new diagnosis
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
Orthostatic hypotension
CAD
s/p 3 mm Xience to prox LAD and bifurcation PTCA first diagonal and PTCA of OM1 superior and Inferior branches 02/2008
CKD 3/4
Elevated LFTs
DM 2
HTN
Hyperlipidemia
h/o CVA 2013
Echo 04/01/2022: EF 55%, mild cLVH, stage II diastolic dysfunction, mild MAC, mild to moderate MR, mild AI
Echo 03/17/2024: EF 35%, moderate tricuspid regurgitation and elevated pulmonary artery pressures estimated at 55-60 mmHg.
Plan:
-Presented with recurrent lightheadedness w/ episode of decreased responsiveness. Did not lose consciousness, but was staring ahead, not responding to family, and dropped cup.
-currently HRs controlled in afib on review of tele overnight. continue coreg 12.5mg BID and digoxin 62.5mcg daily. dig level 0.6 on 03/21.
-continue eliquis
-now planned for PVI next 03/29/24.
-she reports lightheadedness with ambulation, although this is improving from admission. 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 continue coreg. GDMT uptitration limited by orthostasis/hypotension. currently on midodrine 5mg TID
-proBNP 27994 on admission. was diuresed with improvement, holding on further diuretics for now. weights trending down if accurate. Cr stable at 1.6. was not on diuretic prior to admission
-continue compression stockings
-DC planning
HPI: Yesenia is an 83 year old female with PMH of paroxysmal atrial fibrillation, CAD w/ prior PCI, improved CM, CKD 4, DM2, HTN, HLD, and prior TIA. She was recently admitted at 03/12 to 03/13 for lightheadedness and rapid afib. She was placed on
higher dose carvedilol 25mg BID and heart rates improved, so she was discharged and followed up with cardiology in the office on 03/14 to discuss ablation. She remained in afib with improved heart rates at that visit and has been arranged for
ablation 04/12/2024. Yesterday she was sitting at the table drinking a soda when she became somewhat unresponsive. She did not pass out or lose pulse, but was staring blankly ahead and dropped the cup that was in her hand. She came to [facility] for
evaluation and was in rapid atrial fibrillation. She notes since being placed on higher dose carvedilol, she has had an increase in her episodes of lightheadedness and notes typically symptoms occur with position change. She was admitted overnight
for observation and follow up. She feels well this AM while resting in bed. HR fairly well controlled on review of telemetry, in the 90s to 100s.
Progress Note - Duty Manager
Subjective
Date of Service: March 23, 2024
reports remains with some lightheadedness with ambulation, however overall improving. no palps.
Objective
Labs:
03/22/24 09:46
03/22/24 09:46
Labs
Hgb 12.4 g/dL (12.0-16.0) 03/22/24 09:46
Hct 37.8 % (37.0-47.0) 03/22/24 09:46
Plt Count 157 10^3/uL (130-400) 03/22/24 09:46
PT 21.3 Sec (11.4-14.6) H 03/17/24 09:52
INR 1.82 03/17/24 09:52
Sodium 135 mmol/L (135-145) 03/22/24 09:46
Potassium 4.1 mmol/L (3.5-5.1) 03/22/24 09:46
BUN 41 mg/dl (7-17) H 03/22/24 09:46
Creatinine 1.6 mg/dL (0.6-1.0) H 03/22/24 09:46
Glucose 282 mg/dl (70-99) H 03/22/24 09:46
Digoxin 0.6 ng/ml (0.8-2.0) L 03/21/24 06:38
Vital Signs and I&O:
Vital Signs
Temp Pulse Resp BP Pulse Ox
97.9 F 76 19 135/60 98
03/23/24 15:00 03/23/24 15:00 03/23/24 15:00 03/23/24 15:00 03/23/24 15:00
Vital Signs
Temp Pulse Resp BP Pulse Ox
97.9 F 76 19 135/60 98
03/23/24 15:00 03/23/24 15:00 03/23/24 15:00 03/23/24 15:00 03/23/24 15:00
Intake & Output
03/21/24 03/22/24 03/23/24 03/24/24
07:59 07:59 07:59 07:59
Intake Total 1320 / 1320 1320 / 1320 1440 / 1440 960 / 960
Balance 1320 / 1320 1320 / 1320 1440 / 1440 960 / 960
Physical Exam
Physical Exam
GEN: No distress, awake, alert, oriented x3. sitting in chair
HEENT: supple, anicteric, mmm, eomi
LUNGS: CTA B/L
CV: Irreg, S1/S2, no murmur
ABD: soft, BS+, NT/ND
EXT: No cyanosis, clubbing. 1+ edema of B/L LE
NEURO: Gross non-focal
SKIN: Warm, pink, dry. No rash
[2024-03-23 17:07] LABS: Glucose - Point of Care 179 mg/dl (70-99)
[2024-03-23] MEDS: NOVOLOG FLEXPEN-LOW RESISTANCE 1 UNITS SC (18:37)
[2024-03-23] MEDS: LIDOCAINE 4% PATCH 1 PATCH TOPICAL (20:07)
[2024-03-23] MEDS: CRESTOR 10 MG PO (21:38)
[2024-03-23 21:46] LABS: Glucose - Point of Care 130 mg/dl (70-99)
[2024-03-24] VITALS (7 sets, daily range): BP systolic 91–139; BP diastolic 41–91; PULSE 76–86; O2SAT 98
[2024-03-24] MEDS: SYNTHROID 75 MCG PO (06:17)
[2024-03-24 07:35] LABS: Glucose - Point of Care 158 mg/dl (70-99)
[2024-03-24 07:42] LABS: Blood Urea Nitrogen 40 mg/dl (7-17); Calcium 9.7 mg/dl (8.4-10.2); Carbon Dioxide 30 mmol/L (22-30); Chloride 98 mmol/L (98-107); Estimated Creatinine Clearance 26 ml/min; Glucose 155 mg/dl (70-99); Potassium 4.7 mmol/L (3.5-5.1); Sodium 137 mmol/L (135-145)
[2024-03-24] MEDS: NOVOLOG FLEXPEN 20 UNITS SC ×2 (08:29→16:33)
[2024-03-24] MEDS: NOVOLOG FLEXPEN-LOW RESISTANCE 1 UNITS SC (08:29)
[2024-03-24] MEDS: COREG 12.5 MG PO ×2 (08:30→20:06)
[2024-03-24] MEDS: ELIQUIS 2.5 MG PO ×2 (08:30→20:06)
[2024-03-24] MEDS: VITAMIN B-12 1000 MCG PO (08:30)
[2024-03-24] MEDS: ProAmatine 5 MG PO ×3 (08:30→16:32)
--- NOTE | 2024-03-24 08:49 | W.PN.HOSP.TC ---
Today's Communication/Plan
-
dc planning
Assessment / Plan
Assessment / Plan
Physical exam:
General: not Acutely ill
HEENT: Normocephalic, Atraumatic and Moist Mucous Membranes
Respiratory: Clear to Auscultation; Negative Wheezes, Rales or Rhonchi
Cardiac: Irregular rate and rhythm and S1/S2
GI: Soft, Nontender and Nondistended
Musculoskeletal: No Clubbing, No Cyanosis. No bilateral lower extremity edema
Neuro: Awake, Alert and Oriented, no gross neurological deficit
Psych: Calm
Echocardiogram:
Normal left ventricular size.
Asymmetric septal hypertrophy.
Moderately reduced left ventricular systolic function.
LV ejection fraction is 35% by Christopher's method of discs.
Diastolic function indeterminate due to atrial fibrillation.
Normal right ventricular size.
Reduced right ventricular systolic function.
Trace aortic regurgitation.
Mitral sclerosis without stenosis.
Moderate tricuspid regurgitation.
Estimated pulmonary artery pressure of 55-60 mmHg assuming a right atrial
pressure of 8 mmHg.
The IVC is dilated and does not collapse.
Compared to 2022 echocardiogram Ejection fraction is now moderately reduced and
has dropped from 50-55% to 35%.
A/P:
Syncope:
This time it is likely related to hypotension but ultimately linked to her A-fib but also superimposed with an episode of UTI.
She had recent admission for A-fib RVR for which beta-gina was increased. Now beta-gina has to be decreased.
She has ablation scheduled for 04/12 by EP as outpatient. This might need to be reconsidered if needs to be done earlier.
Cardiology started her on digoxin, loaded with 250 mcg x 2 and now on 62.5 mcg daily. She was also started on midodrine 2.5 mg p.o. 3 times daily. Midodrine dose was increased to 5 mg 3 times daily.
Echocardiogram updated and abnormal results as above.
Continue cardiac monitoring
Neurological workup unremarkable for acute finding but show some chronic abnormality on MRI of the brain. Neurology on board
Abnormal ultrasound of the abdomen but does not correlate clinically.
per cardiology:s/p Lasix.
Continue digoxin, carvedilol. Dig level is 0.6. A-fib remains rate controlled. Continue Coreg and digoxin.
Continue Eliquis
PT OT eval
#Paroxysmal versus persistent atrial fibrillation:
Rate control now Coreg 12.5 mg twice a day and digoxin 62.5 mg p.o. day
Anticoagulation Eliquis 2.5 mg twice a day
#CLL -persistent leukocytosis
No fevers. Did not requite treatments in the past.
UTI:
Started on IV ceftriaxone 1 g daily day #5 ( last dose)
Cultures growing E. coli
Left ventricular systolic dysfunction:
EF 35% compared to 50 to 55% on last echocardiogram
Suspect related to tachyarrhythmia but deferred to cardiology if she requires further ischemic and nonischemic workup.
Monitor volume status closely
GDMT
Hyponatremia:
Improved
Sodium today 135
CKD stage IIIb:
Avoid nephrotoxic
Monitor renal function
CAD:
Chest pain-free
Continue current anti-ischemic regimen
History of s/p 3 mm Xience to prox LAD and bifurcation PTCA first diagonal and PTCA of OM1 superior and Inferior branches 02/2008
Diabetes mellitus type 2:
better controlled.
Increased Lantus dose to 20 units , increased pre-meal dose of insulin
Continue insulin sliding scale
Essential Hypertension:
Hypotension/probably orthostatic hypotension:
On midodrine
Hyperlipidemia:
Continue statin
Hypothyroidism:
Continue thyroid place
History of TIA/CVA:
On Eliquis and statin
DVT prophylaxis:
Eliquis
CODE STATUS:
Full code
Total time spent to see the patient, examine the patient, review data and lab results, discuss treatment plan with patient and nursing staff around 55 minutes
Anticipated Discharge: Within 24 hours
Subjective/Interval History
-
Date of Service: March 24, 2024
No complaints
Objective Data
-
Labs:
Laboratory Results
03/24/24
06:56
Sodium 137
Potassium 4.7
Chloride 98
Carbon Dioxide 30
BUN 40 H
Creatinine 1.6 H
Glucose 155 H
Calcium 9.7
Vital Signs:
Vital Signs
Temp Pulse Resp BP Pulse Ox
97.9 F 93 22 128/91 97
03/24/24 07:24 03/24/24 07:24 03/24/24 07:24 03/24/24 08:30 03/24/24 07:24
I&O
03/23/24 03/24/24 03/25/24
06:59 06:59 06:59
Intake Total 1440 / 1440 960 / 960
Balance 1440 / 1440 960 / 960
[2024-03-24] MEDS: LANTUS 0.2 UNITS SC (09:14)
[2024-03-24 12:00] LABS: Glucose - Point of Care 225 mg/dl (70-99)
[2024-03-24] MEDS: LANOXIN 62.5 MCG PO (12:01)
[2024-03-24] MEDS: STERILE WATER FOR INJECTION 10 ML IV (12:01)
[2024-03-24] MEDS: ROCEPHIN 1000 MG IV (12:02)
[2024-03-24] MEDS: NOVOLOG FLEXPEN 15 UNITS SC (12:03)
[2024-03-24] MEDS: NOVOLOG FLEXPEN-LOW RESISTANCE 2 UNITS SC (12:03)
--- NOTE | 2024-03-24 14:35 | CM ---
Patient is for discharge to home with [facility] and palliative care
Plan; Home with [facility]
[2024-03-24 16:13] LABS: Glucose - Point of Care 116 mg/dl (70-99)
[2024-03-24] MEDS: NOVOLOG FLEXPEN-LOW RESISTANCE SC (16:16)
[2024-03-24] MEDS: LIDOCAINE 4% PATCH TOPICAL ×2 (20:07→20:13)
[2024-03-24 22:01] LABS: Glucose - Point of Care 78 mg/dl (70-99)
[2024-03-24] MEDS: LANTUS SC (22:10)
[2024-03-24] MEDS: CRESTOR 10 MG PO (22:10)
[2024-03-25] VITALS (8 sets, daily range): BP systolic 102–135; BP diastolic 42–68; PULSE 71–98; BMI 23.7
[2024-03-25] MEDS: SYNTHROID 75 MCG PO (05:59)
[2024-03-25 07:41] LABS: Glucose - Point of Care 130 mg/dl (70-99)
[2024-03-25] MEDS: NOVOLOG FLEXPEN-LOW RESISTANCE SC ×2 (08:30→16:45)
[2024-03-25] MEDS: NOVOLOG FLEXPEN 20 UNITS SC (08:31)
[2024-03-25] MEDS: ProAmatine 5 MG PO ×3 (08:31→16:46)
[2024-03-25] MEDS: COREG 12.5 MG PO ×2 (08:32→21:17)
[2024-03-25] MEDS: ELIQUIS 2.5 MG PO ×2 (08:32→21:14)
[2024-03-25] MEDS: VITAMIN B-12 1000 MCG PO (08:33)
--- NOTE | 2024-03-25 08:37 | W.PN.HOSP.TC ---
Today's Communication/Plan
-
DC planning
Patient wants to remain in hospital until OP ablation procedure.
Assessment / Plan
Assessment / Plan
Physical exam:
General: not Acutely ill
HEENT: Normocephalic, Atraumatic and Moist Mucous Membranes
Respiratory: Clear to Auscultation; Negative Wheezes, Rales or Rhonchi
Cardiac: Irregular rate and rhythm and S1/S2
GI: Soft, Nontender and Nondistended
Musculoskeletal: No Clubbing, No Cyanosis. No bilateral lower extremity edema
Neuro: Awake, Alert and Oriented, no gross neurological deficit
Psych: Calm
Echocardiogram:
Normal left ventricular size.
Asymmetric septal hypertrophy.
Moderately reduced left ventricular systolic function.
LV ejection fraction is 35% by Christopher's method of discs.
Diastolic function indeterminate due to atrial fibrillation.
Normal right ventricular size.
Reduced right ventricular systolic function.
Trace aortic regurgitation.
Mitral sclerosis without stenosis.
Moderate tricuspid regurgitation.
Estimated pulmonary artery pressure of 55-60 mmHg assuming a right atrial
pressure of 8 mmHg.
The IVC is dilated and does not collapse.
Compared to 2022 echocardiogram Ejection fraction is now moderately reduced and
has dropped from 50-55% to 35%.
A/P:
Syncope:
This time it is likely related to hypotension but ultimately linked to her A-fib but also superimposed with an episode of UTI.
She had recent admission for A-fib RVR for which beta-gina was increased. Now beta-gina has to be decreased.
She has ablation scheduled for 04/12 by EP as outpatient. This might need to be reconsidered if needs to be done earlier.
Cardiology started her on digoxin, loaded with 250 mcg x 2 and now on 62.5 mcg daily. She was also started on midodrine 2.5 mg p.o. 3 times daily. Midodrine dose was increased to 5 mg 3 times daily.
Echocardiogram updated and abnormal results as above.
Continue cardiac monitoring
Neurological workup unremarkable for acute finding but show some chronic abnormality on MRI of the brain. Neurology on board
Abnormal ultrasound of the abdomen but does not correlate clinically.
per cardiology:s/p Lasix.
Continue digoxin, carvedilol. Dig level is 0.6. A-fib remains rate controlled. Continue Coreg and digoxin.
Continue Eliquis
PT OT eval
#Paroxysmal versus persistent atrial fibrillation:
Rate control now Coreg 12.5 mg twice a day and digoxin 62.5 mg p.o. day
Anticoagulation Eliquis 2.5 mg twice a day
#CLL -persistent leukocytosis
No fevers. Did not requite treatments in the past.
UTI:
Started on IV ceftriaxone 1 g daily day #5 ( last dose)
Cultures growing E. coli
Left ventricular systolic dysfunction:
EF 35% compared to 50 to 55% on last echocardiogram
Suspect related to tachyarrhythmia but deferred to cardiology if she requires further ischemic and nonischemic workup.
Monitor volume status closely
GDMT
Hyponatremia:
Improved
Sodium today 135
CKD stage IIIb:
Avoid nephrotoxic
Monitor renal function
CAD:
Chest pain-free
Continue current anti-ischemic regimen
History of s/p 3 mm Xience to prox LAD and bifurcation PTCA first diagonal and PTCA of OM1 superior and Inferior branches 02/2008
Diabetes mellitus type 2:
better controlled.
Increased Lantus dose to 20 units , increased pre-meal dose of insulin
Continue insulin sliding scale
Essential Hypertension:
Hypotension/probably orthostatic hypotension:
On midodrine
Hyperlipidemia:
Continue statin
Hypothyroidism:
Continue thyroid place
History of TIA/CVA:
On Eliquis and statin
DVT prophylaxis:
Eliquis
CODE STATUS:
Full code
Total time spent to see the patient, examine the patient, review data and lab results, discuss treatment plan with patient and nursing staff around 45 minutes
Anticipated Discharge: Within 24 hours
Subjective/Interval History
-
Date of Service: March 25, 2024
Objective Data
-
Vital Signs:
Vital Signs
Temp Pulse Resp BP Pulse Ox
97.8 F 68 14 135/68 96
03/25/24 07:03 03/25/24 07:03 03/25/24 07:03 03/25/24 07:03 03/25/24 07:03
I&O
03/24/24 03/25/24 03/26/24
06:59 06:59 06:59
Intake Total 960 / 960 1200 / 1200
Balance 960 / 960 1200 / 1200
[2024-03-25 11:20] LABS: Glucose - Point of Care 198 mg/dl (70-99)
[2024-03-25] MEDS: NOVOLOG FLEXPEN 15 UNITS SC ×2 (12:49→16:45)
[2024-03-25] MEDS: NOVOLOG FLEXPEN-LOW RESISTANCE 1 UNITS SC (12:49)
[2024-03-25] MEDS: LANOXIN 62.5 MCG PO (12:52)
--- NOTE | 2024-03-25 13:24 | PTCARENOTE ---
Spoke with daughter today on phone inquiring about moms discharge status. I let her know that no discharge had been put in by the hospitalist at this point in time. Daughter insisted the nurse yesterday , 'who was female' stated that 'she was not
going anywhere'. Nurse yesterday was male. I did let the hospitalist know of family confusion and she did ask me to tell them to call the mgmt analyst office on Wednesday regarding procedure scheduled as an outpt on Wednesday. inbound call center representative cardiology was
not sure of the answer.
[2024-03-25 14:27] LABS: Glucose - Point of Care 161 mg/dl (70-99)
[2024-03-25 16:35] LABS: Glucose - Point of Care 128 mg/dl (70-99)
[2024-03-25] MEDS: CRESTOR 10 MG PO (21:14)
[2024-03-25] MEDS: LIDOCAINE 4% PATCH TOPICAL (21:14)
[2024-03-25 21:15] LABS: Glucose - Point of Care 110 mg/dl (70-99)
[2024-03-25] MEDS: LANTUS 0.1 UNITS SC (21:18)
[2024-03-26 03:40] VITALS: BP 127/75
[2024-03-26] MEDS: SYNTHROID 75 MCG PO (05:23)
[2024-03-26 06:00] VITALS: BMI 23.7
[2024-03-26 07:32] LABS: Glucose - Point of Care 191 mg/dl (70-99)
[2024-03-26 07:59] VITALS: BP 100/54; BP 110/57; BP 132/75
[2024-03-26] MEDS: LIDOCAINE 4% PATCH 1 PATCH TOPICAL (08:58)
[2024-03-26] MEDS: ELIQUIS 2.5 MG PO ×2 (08:59→20:12)
[2024-03-26] MEDS: VITAMIN B-12 1000 MCG PO (08:59)
[2024-03-26] MEDS: ProAmatine 5 MG PO ×3 (08:59→17:06)
[2024-03-26] MEDS: NOVOLOG FLEXPEN-LOW RESISTANCE 1 UNITS SC (08:59)
[2024-03-26] MEDS: NOVOLOG FLEXPEN 15 UNITS SC ×3 (08:59→17:06)
[2024-03-26] MEDS: COREG 12.5 MG PO ×2 (08:59→20:12)
[2024-03-26 11:08] VITALS: BP 129/83
--- NOTE | 2024-03-26 11:36 | W.PN.HOSP.TC ---
Today's Communication/Plan
-
Plan for ablation procedure this Wednesday, updated cardiology service.
Continue to monitor blood pressure and blood glucose
Assessment / Plan
Assessment / Plan
Physical exam:
General: not Acutely ill
HEENT: Normocephalic, Atraumatic and Moist Mucous Membranes
Respiratory: Clear to Auscultation; Negative Wheezes, Rales or Rhonchi
Cardiac: Irregular rate and rhythm and S1/S2
GI: Soft, Nontender and Nondistended
Musculoskeletal: No Clubbing, No Cyanosis. No bilateral lower extremity edema
Neuro: Awake, Alert and Oriented, no gross neurological deficit
Psych: Calm
Echocardiogram:
Normal left ventricular size.
Asymmetric septal hypertrophy.
Moderately reduced left ventricular systolic function.
LV ejection fraction is 35% by Christopher's method of discs.
Diastolic function indeterminate due to atrial fibrillation.
Normal right ventricular size.
Reduced right ventricular systolic function.
Trace aortic regurgitation.
Mitral sclerosis without stenosis.
Moderate tricuspid regurgitation.
Estimated pulmonary artery pressure of 55-60 mmHg assuming a right atrial
pressure of 8 mmHg.
The IVC is dilated and does not collapse.
Compared to 2022 echocardiogram Ejection fraction is now moderately reduced and
has dropped from 50-55% to 35%.
A/P:
# DC planning
Patient was medically stable to go home. Patient and daughters were concerned. She has history of orthostatic symptoms that make the patient uncomfortable to go home before the ablation therapy. Also her is sick at home and requiring care.
Updated cardiology service over the weekend. Per records, patient has ablation procedure this Wednesday.
Syncope:
This time it is likely related to hypotension but ultimately linked to her A-fib but also superimposed with an episode of UTI.
She had recent admission for A-fib RVR for which beta-gina was increased. Now beta-gina has to be decreased.
She has ablation scheduled for 2/26 by EP as outpatient. This might need to be reconsidered if needs to be done earlier.
Cardiology started her on digoxin, loaded with 250 mcg x 2 and now on 62.5 mcg daily. She was also started on midodrine 2.5 mg p.o. 3 times daily. Midodrine dose was increased to 5 mg 3 times daily.
Echocardiogram updated and abnormal results as above.
Continue cardiac monitoring
Neurological workup unremarkable for acute finding but show some chronic abnormality on MRI of the brain. Neurology on board
Abnormal ultrasound of the abdomen but does not correlate clinically.
per cardiology:s/p Lasix.
Continue digoxin, carvedilol. Dig level is 0.6. A-fib remains rate controlled. Continue Coreg and digoxin.
Continue Eliquis
PT OT eval
#Paroxysmal versus persistent atrial fibrillation:
Rate control now Coreg 12.5 mg twice a day and digoxin 62.5 mg p.o. day
Anticoagulation Eliquis 2.5 mg twice a day
#CLL -persistent leukocytosis
No fevers. Did not requite treatments in the past.
UTI:
Started on IV ceftriaxone 1 g daily day #5 ( last dose)
Cultures growing E. coli
Left ventricular systolic dysfunction:
EF 35% compared to 50 to 55% on last echocardiogram
Suspect related to tachyarrhythmia but deferred to cardiology if she requires further ischemic and nonischemic workup.
Monitor volume status closely
GDMT
Hyponatremia:
Improved
Sodium today 135
CKD stage IIIb:
Avoid nephrotoxic
Monitor renal function
CAD:
Chest pain-free
Continue current anti-ischemic regimen
History of s/p 3 mm Xience to prox LAD and bifurcation PTCA first diagonal and PTCA of OM1 superior and Inferior branches 02/2008
Diabetes mellitus type 2:
better controlled.
Increased Lantus dose to 20 units , increased pre-meal dose of insulin
Continue insulin sliding scale
Essential Hypertension:
Hypotension/probably orthostatic hypotension:
On midodrine
Hyperlipidemia:
Continue statin
Hypothyroidism:
Continue thyroid place
History of TIA/CVA:
On Eliquis and statin
DVT prophylaxis:
Eliquis
CODE STATUS:
Full code
Total time spent to see the patient, examine the patient, review data and lab results, discuss treatment plan with patient, cardiology team and nursing staff around 57 minutes
Anticipated Discharge: > 48 hours
Subjective/Interval History
-
Date of Service: March 26, 2024
No chest pain
No SOB
No fever
No hypoxia
Objective Data
-
Vital Signs:
Vital Signs
Temp Pulse Resp BP Pulse Ox
97.8 F 127 16 129/83 97
03/26/24 11:08 03/26/24 11:08 03/26/24 11:08 03/26/24 11:08 03/26/24 11:08
I&O
03/25/24 03/26/24 03/27/24
06:59 06:59 06:59
Intake Total 1200 / 1200 960 / 960
Balance 1200 / 1200 960 / 960
[2024-03-26 12:26] LABS: Glucose - Point of Care 289 mg/dl (70-99)
[2024-03-26] MEDS: LANOXIN 62.5 MCG PO (12:51)
[2024-03-26] MEDS: NOVOLOG FLEXPEN-LOW RESISTANCE 3 UNITS SC (12:52)
[2024-03-26 15:00] VITALS: BP 135/73
[2024-03-26 16:56] LABS: Glucose - Point of Care 342 mg/dl (70-99)
[2024-03-26] MEDS: NOVOLOG FLEXPEN-LOW RESISTANCE 4 UNITS SC (17:06)
[2024-03-26 19:55] VITALS: BP 154/99
[2024-03-26 19:56] VITALS: BP 124/62; BP 154/99; PULSE 100; PULSE 103
[2024-03-26 21:43] LABS: Glucose - Point of Care 340 mg/dl (70-99)
[2024-03-26] MEDS: CRESTOR 10 MG PO (21:43)
[2024-03-26] MEDS: LANTUS 0.2 UNITS SC (21:44)
[2024-03-27] VITALS (8 sets, daily range): BP systolic 128–161; BP diastolic 64–101; PULSE 70–98; BMI 23.7
[2024-03-27] MEDS: SYNTHROID 75 MCG PO (05:16)
[2024-03-27 07:21] LABS: Hematocrit 36.9 % (37.0-47.0); Hemoglobin 11.9 g/dL (12.0-16.0); Mean Corp Hgb Conc. 32.2 g/dL (33.0-37.0); Mean Corpuscular Hgb 29.2 pg (27.0-31.0); Mean Corpuscular Volume 90.4 fL (81.0-99.0); Mean Platelet Volume 11.1 fL (7.4-10.4); Platelet Count 127 10^3/uL (130-400); Red Blood Cell Count 4.08 10^6/uL (4.20-5.40); Red Cell Dist. Width 14.6 % (11.5-14.5); White Blood Cell Count 8.8 10^3/uL (4.8-10.8)
[2024-03-27 07:49] LABS: Blood Urea Nitrogen 44 mg/dl (7-17); Carbon Dioxide 30 mmol/L (22-30); Chloride 100 mmol/L (98-107); Estimated Creatinine Clearance 26 ml/min; Glucose 286 mg/dl (70-99); Potassium 5.1 mmol/L (3.5-5.1); Sodium 135 mmol/L (135-145)
[2024-03-27 07:56] LABS: Glucose - Point of Care 271 mg/dl (70-99)
[2024-03-27] MEDS: NOVOLOG FLEXPEN 15 UNITS SC (07:57)
[2024-03-27] MEDS: NOVOLOG FLEXPEN-LOW RESISTANCE 3 UNITS SC (07:57)
[2024-03-27] MEDS: LIDOCAINE 4% PATCH 1 PATCH TOPICAL (07:58)
[2024-03-27] MEDS: VITAMIN B-12 1000 MCG PO (07:59)
[2024-03-27] MEDS: COREG 12.5 MG PO ×2 (07:59→21:51)
[2024-03-27] MEDS: ELIQUIS 2.5 MG PO ×2 (07:59→21:52)
[2024-03-27] MEDS: ProAmatine 5 MG PO ×2 (07:59→12:14)
--- NOTE | 2024-03-27 09:07 | W.PN.HOSP.TC ---
Today's Communication/Plan
-
Cardiology reeval. Discharge planning
Assessment / Plan
Assessment / Plan
Physical exam:
General: not Acutely ill
HEENT: Normocephalic, Atraumatic and Moist Mucous Membranes
Respiratory: Clear to Auscultation; Negative Wheezes, Rales or Rhonchi
Cardiac: Irregular rate and rhythm and S1/S2
GI: Soft, Nontender and Nondistended
Musculoskeletal: No Clubbing, No Cyanosis. No bilateral lower extremity edema
Neuro: Awake, Alert and Oriented, no gross neurological deficit
Psych: Calm
Echocardiogram:
Normal left ventricular size.
Asymmetric septal hypertrophy.
Moderately reduced left ventricular systolic function.
LV ejection fraction is 35% by Christopher's method of discs.
Diastolic function indeterminate due to atrial fibrillation.
Normal right ventricular size.
Reduced right ventricular systolic function.
Trace aortic regurgitation.
Mitral sclerosis without stenosis.
Moderate tricuspid regurgitation.
Estimated pulmonary artery pressure of 55-60 mmHg assuming a right atrial
pressure of 8 mmHg.
The IVC is dilated and does not collapse.
Compared to 2022 echocardiogram Ejection fraction is now moderately reduced and
has dropped from 50-55% to 35%.
A/P:
Syncope:
This time it is likely related to hypotension but ultimately linked to her A-fib but also superimposed with an episode of UTI.
She had recent admission for A-fib RVR for which beta-gina was increased. Now beta-gina has to be decreased.
She has ablation scheduled for 04/12 by EP as outpatient. This might need to be reconsidered if needs to be done earlier.
Cardiology started her on digoxin, loaded with 250 mcg x 2 and now on 62.5 mcg daily. She was also started on midodrine 2.5 mg p.o. 3 times daily. Midodrine dose was increased to 5 mg 3 times daily.
Echocardiogram updated and abnormal results as above.
Continue cardiac monitoring
Neurological workup unremarkable for acute finding but show some chronic abnormality on MRI of the brain. Neurology on board
Abnormal ultrasound of the abdomen but does not correlate clinically.
per cardiology:s/p Lasix.
Continue digoxin, carvedilol. Dig level is 0.6. A-fib remains rate controlled. Continue Coreg and digoxin.
Continue Eliquis
PT OT eval
Dr. Wei has discussed with family and cardiology over the weekend and and this is her annotation on the record-->Patient was medically stable to go home. Patient and daughters were concerned. She has history of orthostatic symptoms that make the
patient uncomfortable to go home before the ablation therapy. Also her is sick at home and requiring care. Updated cardiology service over the weekend. Per records, patient has ablation procedure this Wednesday.
#Paroxysmal versus persistent atrial fibrillation:
Rate control now Coreg 12.5 mg twice a day and digoxin 62.5 mg p.o. day
Anticoagulation Eliquis 2.5 mg twice a day
#CLL -persistent leukocytosis
No fevers. Did not requite treatments in the past.
UTI:
Started on IV ceftriaxone 1 g daily day #5 ( last dose)
Cultures growing E. coli
Left ventricular systolic dysfunction:
EF 35% compared to 50 to 55% on last echocardiogram
Suspect related to tachyarrhythmia but deferred to cardiology if she requires further ischemic and nonischemic workup.
Monitor volume status closely
GDMT
Hyponatremia:
Improved
Sodium today 135
CKD stage IIIb:
Avoid nephrotoxic
Monitor renal function
CAD:
Chest pain-free
Continue current anti-ischemic regimen
History of s/p 3 mm Xience to prox LAD and bifurcation PTCA first diagonal and PTCA of OM1 superior and Inferior branches 02/2008
Diabetes mellitus type 2:
better controlled.
Increased Lantus dose to 20 units , increased pre-meal dose of insulin
Continue insulin sliding scale
Essential Hypertension:
Hypotension/probably orthostatic hypotension:
On midodrine
Hyperlipidemia:
Continue statin
Hypothyroidism:
Continue thyroid place
History of TIA/CVA:
On Eliquis and statin
DVT prophylaxis:
Eliquis
CODE STATUS:
Full code
Anticipated Discharge: 24 - 48 hours
Subjective/Interval History
-
Date of Service: March 27, 2024
Denies chest pain or shortness of breath. Able to go to the bathroom by herself. Afebrile
Objective Data
-
Labs:
Laboratory Results
03/27/24
06:44
WBC 8.8
Hgb 11.9 L
Hct 36.9 L
Plt Count 127 L
Sodium 135
Potassium 5.1
Chloride 100
Carbon Dioxide 30
BUN 44 H
Creatinine 1.6 H
Glucose 286 H
Calcium 9.0
Vital Signs:
Vital Signs
Temp Pulse Resp BP Pulse Ox
97.6 F 91 18 160/75 96
03/27/24 07:00 03/27/24 07:00 03/27/24 07:00 03/27/24 07:00 03/27/24 07:00
I&O
03/26/24 03/27/24 03/28/24
06:59 06:59 06:59
Intake Total 960 / 960 960 / 960
Balance 960 / 960 960 / 960
--- NOTE | 2024-03-27 10:31 | CM ---
Patient seen bedside.
Patient is for ablation on Wednesday and per patient d/c on .
Plan: home with [facility] and palliative when stable.
[2024-03-27 12:11] LABS: Glucose - Point of Care 145 mg/dl (70-99)
[2024-03-27] MEDS: NOVOLOG FLEXPEN-LOW RESISTANCE SC ×2 (12:12→16:54)
[2024-03-27] MEDS: NOVOLOG FLEXPEN 5 UNITS SC ×2 (12:13→16:57)
[2024-03-27] MEDS: LANOXIN 62.5 MCG PO (12:13)
[2024-03-27] MEDS: ProAmatine PO (16:27)
[2024-03-27 16:43] LABS: Glucose - Point of Care 139 mg/dl (70-99)
[2024-03-27 21:49] LABS: Glucose - Point of Care 235 mg/dl (70-99)
[2024-03-27] MEDS: MUCINEX 600 MG PO (21:52)
[2024-03-27] MEDS: CRESTOR 10 MG PO (21:52)
[2024-03-27] MEDS: LANTUS 0.2 UNITS SC (21:52)
[2024-03-28] VITALS (7 sets, daily range): BP systolic 111–146; BP diastolic 44–82; PULSE 67–127; BMI 23.6
[2024-03-28] MEDS: SYNTHROID 75 MCG PO (05:49)
[2024-03-28 07:53] LABS: Glucose - Point of Care 177 mg/dl (70-99)
[2024-03-28] MEDS: NOVOLOG FLEXPEN 5 UNITS SC ×3 (07:57→17:39)
[2024-03-28] MEDS: NOVOLOG FLEXPEN-LOW RESISTANCE 1 UNITS SC (07:57)
[2024-03-28] MEDS: LIDOCAINE 4% PATCH 1 PATCH TOPICAL (07:58)
[2024-03-28] MEDS: COREG 12.5 MG PO ×2 (07:59→19:56)
[2024-03-28] MEDS: ProAmatine 5 MG PO ×3 (07:59→17:38)
[2024-03-28] MEDS: MUCINEX 600 MG PO ×2 (07:59→19:56)
[2024-03-28] MEDS: ELIQUIS 2.5 MG PO ×2 (07:59→19:56)
[2024-03-28] MEDS: VITAMIN B-12 1000 MCG PO (07:59)
--- NOTE | 2024-03-28 08:18 | W.PN.HOSP.TC ---
Today's Communication/Plan
-
Plan for ablation by cardiology.
Assessment / Plan
Assessment / Plan
Physical exam:
General: not Acutely ill
HEENT: Normocephalic, Atraumatic and Moist Mucous Membranes
Respiratory: Clear to Auscultation; Negative Wheezes, Rales or Rhonchi
Cardiac: Irregular rate and rhythm and S1/S2
GI: Soft, Nontender and Nondistended
Musculoskeletal: No Clubbing, No Cyanosis. No bilateral lower extremity edema
Neuro: Awake, Alert and Oriented, no gross neurological deficit
Psych: Calm
Echocardiogram:
Normal left ventricular size.
Asymmetric septal hypertrophy.
Moderately reduced left ventricular systolic function.
LV ejection fraction is 35% by Christopher's method of discs.
Diastolic function indeterminate due to atrial fibrillation.
Normal right ventricular size.
Reduced right ventricular systolic function.
Trace aortic regurgitation.
Mitral sclerosis without stenosis.
Moderate tricuspid regurgitation.
Estimated pulmonary artery pressure of 55-60 mmHg assuming a right atrial
pressure of 8 mmHg.
The IVC is dilated and does not collapse.
Compared to 2022 echocardiogram Ejection fraction is now moderately reduced and
has dropped from 50-55% to 35%.
A/P:
Syncope:
This time it is likely related to hypotension but ultimately linked to her A-fib but also superimposed with an episode of UTI.
She had recent admission for A-fib RVR for which beta-gina was increased. Now beta-gina has to be decreased.
She has ablation scheduled for 04/12 by EP as outpatient. This might need to be reconsidered if needs to be done earlier.
Cardiology started her on digoxin, loaded with 250 mcg x 2 and now on 62.5 mcg daily. She was also started on midodrine 2.5 mg p.o. 3 times daily. Midodrine dose was increased to 5 mg 3 times daily.
Echocardiogram updated and abnormal results as above.
Continue cardiac monitoring
Neurological workup unremarkable for acute finding but show some chronic abnormality on MRI of the brain. Neurology on board
Abnormal ultrasound of the abdomen but does not correlate clinically.
per cardiology:s/p Lasix.
Continue digoxin, carvedilol. Dig level is 0.6. A-fib remains rate controlled. Continue Coreg and digoxin.
Continue Eliquis
PT OT eval
Dr. Wei has discussed with family and cardiology over the weekend and and this is her annotation on the record-->Patient was medically stable to go home. Patient and daughters were concerned. She has history of orthostatic symptoms that make the
patient uncomfortable to go home before the ablation therapy. Also her is sick at home and requiring care. Updated cardiology service over the weekend. Per records, patient has ablation procedure this Wednesday.
#Paroxysmal versus persistent atrial fibrillation:
Rate control now Coreg 12.5 mg twice a day and digoxin 62.5 mg p.o. day
Anticoagulation Eliquis 2.5 mg twice a day
#CLL -persistent leukocytosis
No fevers. Did not requite treatments in the past.
UTI:
Started on IV ceftriaxone 1 g daily day #5 ( last dose)
Cultures growing E. coli
Left ventricular systolic dysfunction:
EF 35% compared to 50 to 55% on last echocardiogram
Suspect related to tachyarrhythmia but deferred to cardiology if she requires further ischemic and nonischemic workup.
Monitor volume status closely
GDMT
Hyponatremia:
Improved
Sodium today 135
CKD stage IIIb:
Avoid nephrotoxic
Monitor renal function
CAD:
Chest pain-free
Continue current anti-ischemic regimen
History of s/p 3 mm Xience to prox LAD and bifurcation PTCA first diagonal and PTCA of OM1 superior and Inferior branches 02/2008
Diabetes mellitus type 2:
better controlled.
Increased Lantus dose to 20 units , increased pre-meal dose of insulin
Continue insulin sliding scale
Essential Hypertension:
Hypotension/probably orthostatic hypotension:
On midodrine
Hyperlipidemia:
Continue statin
Hypothyroidism:
Continue thyroid place
History of TIA/CVA:
On Eliquis and statin
DVT prophylaxis:
Eliquis
CODE STATUS:
Full code
Anticipated Discharge: 24 - 48 hours
Subjective/Interval History
-
Date of Service: March 28, 2024
Denies any chest pain or shortness of breath. No syncope.
Objective Data
-
Labs:
Laboratory Results
03/28/24
06:43
WBC Pending
Hgb Pending
Hct Pending
Plt Count Pending
Sodium Pending
Potassium Pending
Chloride Pending
Carbon Dioxide Pending
BUN Pending
Creatinine Pending
Glucose Pending
Calcium Pending
Vital Signs:
Vital Signs
Temp Pulse Resp BP Pulse Ox
98.0 F 91 18 143/73 97
03/28/24 07:00 03/28/24 07:00 03/28/24 07:00 03/28/24 07:00 03/28/24 07:00
I&O
03/27/24 03/28/24 03/29/24
06:59 06:59 06:59
Intake Total 960 / 960 1200 / 1200
Balance 960 / 960 1200 / 1200
[2024-03-28 09:11] LABS: % Basophils 0.7 % (0-2); % Eosinophils 2.4 % (0-6); % Immature Granulocytes 0.1 % (0-0.5); % Lymphocytes 32.1 % (20.5-51.1); % Monocytes 10.1 % (1.7-9.3); % Neutrophils 54.6 % (42.2-75.2); Absolute Basophils 0.1 10^3/uL (0-0.2); Absolute Eosinophils 0.2 10^3/uL (0-0.7); Absolute Lymphocytes 2.7 10^3/uL (1.2-3.4); Absolute Monocytes 0.8 10^3/uL (0.1-0.6); Absolute Neutrophils 4.6 10^3/uL (1.4-6.5); Hematocrit 38.1 % (37.0-47.0); Hemoglobin 12.1 g/dL (12.0-16.0); Mean Corp Hgb Conc. 31.8 g/dL (33.0-37.0); Mean Corpuscular Hgb 29.1 pg (27.0-31.0); Mean Corpuscular Volume 91.6 fL (81.0-99.0); Mean Platelet Volume 11.5 fL (7.4-10.4); Nucleated Red Blood Cells % 0 %; Platelet Count 122 10^3/uL (130-400); Red Blood Cell Count 4.16 10^6/uL (4.20-5.40); Red Cell Dist. Width 14.7 % (11.5-14.5); White Blood Cell Count 8.3 10^3/uL (4.8-10.8)
[2024-03-28 09:48] LABS: Blood Urea Nitrogen 37 mg/dl (7-17); Carbon Dioxide 28 mmol/L (22-30); Chloride 102 mmol/L (98-107); Estimated Creatinine Clearance 26 ml/min; Glucose 163 mg/dl (70-99); Potassium 4.7 mmol/L (3.5-5.1); Sodium 137 mmol/L (135-145)
[2024-03-28 11:47] LABS: Glucose - Point of Care 205 mg/dl (70-99)
[2024-03-28] MEDS: NOVOLOG FLEXPEN-LOW RESISTANCE 2 UNITS SC ×2 (11:56→17:38)
[2024-03-28] MEDS: LANOXIN 62.5 MCG PO (11:56)
--- NOTE | 2024-03-28 15:55 | CM ---
Home with [facility] and palliative Care when stable.
Plan; Home with [facility] and [facility] palliative care.
[2024-03-28 17:31] LABS: Glucose - Point of Care 223 mg/dl (70-99)
[2024-03-28] MEDS: TYLENOL 650 MG PO (19:56)
[2024-03-28 21:13] LABS: Glucose - Point of Care 265 mg/dl (70-99)
[2024-03-28] MEDS: CRESTOR 10 MG PO (21:24)
[2024-03-28] MEDS: LANTUS 0.2 UNITS SC (21:24)
[2024-03-29] VITALS (19 sets, daily range): BP systolic 83–143; BP diastolic 47–88; PULSE 98–134; BMI 23.9
[2024-03-29] MEDS: SYNTHROID 75 MCG PO (05:49)
[2024-03-29 07:56] LABS: Glucose - Point of Care 212 mg/dl (70-99)
[2024-03-29] MEDS: TYLENOL 650 MG PO ×3 (08:01→22:17)
[2024-03-29] MEDS: LIDOCAINE 4% PATCH 1 PATCH TOPICAL (08:01)
[2024-03-29] MEDS: ProAmatine 5 MG PO ×2 (08:23→17:41)
[2024-03-29] MEDS: COREG 12.5 MG PO ×2 (08:23→20:19)
[2024-03-29] MEDS: NOVOLOG FLEXPEN SC ×2 (08:23→16:23)
[2024-03-29] MEDS: NOVOLOG FLEXPEN-LOW RESISTANCE SC ×2 (09:08→16:23)
--- NOTE | 2024-03-29 09:42 | W.PN.HOSP.TC ---
Today's Communication/Plan
-
Cardiac ablation
Assessment / Plan
Assessment / Plan
Physical exam:
General: not Acutely ill
HEENT: Normocephalic, Atraumatic and Moist Mucous Membranes
Respiratory: Clear to Auscultation; Negative Wheezes, Rales or Rhonchi
Cardiac: Irregular rate and rhythm and S1/S2
GI: Soft, Nontender and Nondistended
Musculoskeletal: No Clubbing, No Cyanosis. No bilateral lower extremity edema
Neuro: Awake, Alert and Oriented, no gross neurological deficit
Psych: Calm
Echocardiogram:
Normal left ventricular size.
Asymmetric septal hypertrophy.
Moderately reduced left ventricular systolic function.
LV ejection fraction is 35% by Christopher's method of discs.
Diastolic function indeterminate due to atrial fibrillation.
Normal right ventricular size.
Reduced right ventricular systolic function.
Trace aortic regurgitation.
Mitral sclerosis without stenosis.
Moderate tricuspid regurgitation.
Estimated pulmonary artery pressure of 55-60 mmHg assuming a right atrial
pressure of 8 mmHg.
The IVC is dilated and does not collapse.
Compared to 2022 echocardiogram Ejection fraction is now moderately reduced and
has dropped from 50-55% to 35%.
A/P:
Syncope:
This time it is likely related to hypotension but ultimately linked to her A-fib but also superimposed with an episode of UTI.
She had recent admission for A-fib RVR for which beta-gina was increased. Now beta-gina has to be decreased.
She has ablation scheduled for 04/12 by EP as outpatient. This might need to be reconsidered if needs to be done earlier.
Cardiology started her on digoxin, loaded with 250 mcg x 2 and now on 62.5 mcg daily. She was also started on midodrine 2.5 mg p.o. 3 times daily. Midodrine dose was increased to 5 mg 3 times daily.
Echocardiogram updated and abnormal results as above.
Continue cardiac monitoring
Neurological workup unremarkable for acute finding but show some chronic abnormality on MRI of the brain. Neurology on board
Abnormal ultrasound of the abdomen but does not correlate clinically.
per cardiology:s/p Lasix.
Continue digoxin, carvedilol. Dig level is 0.6. A-fib remains rate controlled. Continue Coreg and digoxin.
Continue Eliquis
PT OT eval
Dr. Wei has discussed with family and cardiology over the weekend and and this is her annotation on the record-->Patient was medically stable to go home. Patient and daughters were concerned. She has history of orthostatic symptoms that make the
patient uncomfortable to go home before the ablation therapy. Also her is sick at home and requiring care. Updated cardiology service over the weekend. Per records, patient has ablation procedure this Wednesday.
Plan for cardiac ablation today
#Paroxysmal versus persistent atrial fibrillation:
Rate control now Coreg 12.5 mg twice a day and digoxin 62.5 mg p.o. day
Anticoagulation Eliquis 2.5 mg twice a day
Plan for cardiac ablation today
#CLL -persistent leukocytosis
No fevers. Did not requite treatments in the past.
UTI:
Started on IV ceftriaxone 1 g daily day #5 ( last dose)
Cultures growing E. coli
Left ventricular systolic dysfunction:
EF 35% compared to 50 to 55% on last echocardiogram
Suspect related to tachyarrhythmia but deferred to cardiology if she requires further ischemic and nonischemic workup.
Monitor volume status closely
GDMT
Hyponatremia:
Improved
Sodium today 135
CKD stage IIIb:
Avoid nephrotoxic
Monitor renal function
CAD:
Chest pain-free
Continue current anti-ischemic regimen
History of s/p 3 mm Xience to prox LAD and bifurcation PTCA first diagonal and PTCA of OM1 superior and Inferior branches 02/2008
Diabetes mellitus type 2:
better controlled.
Increased Lantus dose to 20 units , increased pre-meal dose of insulin
Continue insulin sliding scale
Essential Hypertension:
Hypotension/probably orthostatic hypotension:
On midodrine
Hyperlipidemia:
Continue statin
Hypothyroidism:
Continue thyroid place
History of TIA/CVA:
On Eliquis and statin
DVT prophylaxis:
Eliquis
CODE STATUS:
Full code
Anticipated Discharge: Within 24 hours
Subjective/Interval History
-
Date of Service: March 29, 2024
Patient denies chest pain or shortness of breath or palpitations or syncope.
Objective Data
-
Labs:
Laboratory Results
03/29/24
06:00
WBC Pending
Hgb Pending
Hct Pending
Plt Count Pending
Sodium Pending
Potassium Pending
Chloride Pending
Carbon Dioxide Pending
BUN Pending
Creatinine Pending
Glucose Pending
Calcium Pending
Vital Signs:
Vital Signs
Temp Pulse Resp BP Pulse Ox
97.5 F 134 22 134/76 94
03/29/24 07:00 03/29/24 07:00 03/29/24 07:00 03/29/24 07:00 03/29/24 07:00
I&O
03/28/24 03/29/24 03/30/24
06:59 06:59 06:59
Intake Total 1200 / 1200 1140 / 1140
Balance 1200 / 1200 1140 / 1140
[2024-03-29 11:53] LABS: Glucose - Point of Care 196 mg/dl (70-99)
[2024-03-29 12:38] LABS: Hematocrit 38.8 % (37.0-47.0); Hemoglobin 12.5 g/dL (12.0-16.0); Mean Corp Hgb Conc. 32.2 g/dL (33.0-37.0); Mean Corpuscular Hgb 29.3 pg (27.0-31.0); Mean Corpuscular Volume 90.9 fL (81.0-99.0); Mean Platelet Volume 11.2 fL (7.4-10.4); Platelet Count 129 10^3/uL (130-400); Red Blood Cell Count 4.27 10^6/uL (4.20-5.40); Red Cell Dist. Width 14.6 % (11.5-14.5); White Blood Cell Count 10.7 10^3/uL (4.8-10.8)
[2024-03-29 13:26] LABS: Blood Urea Nitrogen 39 mg/dl (7-17); Carbon Dioxide 23 mmol/L (22-30); Chloride 99 mmol/L (98-107); Estimated Creatinine Clearance 28 ml/min; Glucose 199 mg/dl (70-99); Potassium 4.5 mmol/L (3.5-5.1); Sodium 134 mmol/L (135-145); eGFR 34.36
[2024-03-29 14:43] LABS: Glucose - Point of Care 193 mg/dl (70-99)
[2024-03-29] MEDS: VITAMIN B-12 PO (14:43)
[2024-03-29] MEDS: MUCINEX PO (14:43)
[2024-03-29 14:59] LABS: ACT-LR - POC 355 Seconds (116-155)
[2024-03-29 15:14] LABS: ACT-LR - POC 355 Seconds (116-155)
--- NOTE | 2024-03-29 15:30 | ITS.CL.ABL ---
Acute Care Certified Nursing Assistant - Ablation
Ablation
Procedure Report:
ELECTROPHYSIOLOGIC STUDY AND POSSIBLE ABLATION
DATE: March 29, 2024
PCP: Susie Jarquin PA-C
Blade Worker: Dr. Cam Read
INDICATION:
Symptomatic Atrial Fibrillation. Persistent. Has also resulted in worsening LV function and decompensated heart failure with reduced ejection fraction.
HISTORY: See H and P.
Symptomatic AF, poorly controlled with attempted medical therapy. Has been intolerant of amiodarone. Rate control has also been difficult and not well achieved.
HAS-BLED: 4
Age
Abnormal Renal Function
Abnormal Liver Function
H/O Stroke
CHADSVASc: 7
CHF, NYHA Class 3, HFrEF (EF 35%)
Age
DM
h/o Stroke
Vascular Dz: prior SC
F Gender
PRESENTING RHYTHM: AF
HISTORY: See H and P.
Symptomatic AF, poorly controlled with attempted medical therapy.
ANTICOAGULATION: Eliquis 2.5 mg twice daily (dose adjusted to renal function and age)
'TIME-OUT': called and confirmed.
SEDATION/ANESTHESIA: provided via the anesthesia department using general anesthesia.
PROCEDURE:
Ultrasound Guidance with real-time visualization of needle insertion and vessel patency performed by ga for femoral venous Vascular Access. Images were taken and saved for the patient's permanent record. Imaging findings typical femoral venous
anatomy. Direct visualization of needle puncture into the femoral vein was observed and recorded.
A decapolar CS catheter was placed within the CS for mapping and pacing.
The intracardiac ultrasound catheter was positioned in the RA for continuous intracardiac ultrasound imaging.
Heparin bolus and infusion to target ACT at 300 -350 seconds was administered. Transseptal puncture was performed. This entailed advancing a sheath with dilator into the superior vena cava and withdrawing both (monitoring intracardiac ultrasound,
fluoroscopy and tip pressure) with the tip oriented toward the atrial septum. The fossa ovalis was engaged (indicated by sudden displacement of the sheath tip as well as tenting of the fossa seen on intracardiac ultrasound).
The [employer]apBrightstar transseptal system was used. Left atrial catheter position was confirmed by echocardiographic imaging and fluoroscopy followed by RF delivery using the Zeolife system resulting in successful LA access with pressure monitoring
demonstrating LA pressure waveforms (LA mean pressure 16 mm Hg). The sheath was advanced over the dilator and positioned in the left atrium.
The Estrada Grid multipolar mapping catheter was initially positioned through the transseptal sheath for high density mapping.
Geometry and voltage mapping was performed using the [employer] multipolar grid catheter. Ensite-X was utilized for three-dimensional electroanatomical mapping.
A 3-D map was created using Ensite-X in Voxel mode. A 3-D reconstructed CT image was compared to the 3-D Navex map to assist in anatomic evaluation, mapping and ablation.
The [employer] PFA catheter and system was used for cardiac ablation. Catheter positioning was guided and confirmed using both I.C.E. and fluoroscopy.
High density three-dimensional anatomical mapping finds 4 distinct pulmonary veins (LSPV, LIPV, RSPV, RIPV).
Cardioversion with 200 J failed to restore sinus rhythm. Cardioversion with 360 J restored sinus rhythm. Within approximately 1 minute atrial fibrillation recurred. The rest of the mapping and ablation procedure was performed in atrial
fibrillation.
Ablation approach consisted of pulmonary venous isolation using pulsed field ablation. Additional ablation lesion set included ablation with isolation of the posterior wall of the left atrium which prior to ablation demonstrated highly fractionated
electrograms in both sinus rhythm and in atrial fibrillation.
Once planned ablation had been completed, cardioversion at 200 J restored sinus rhythm. Sinus rhythm remained thereafter.
Remapping with the Estrada high density grid mapping catheter found entrance and exit block at each of the 4 pulmonary veins as well as the posterior wall of the left atrium.
Programmed electrical stimulation then was performed and failed to induce any arrhythmias.
I.C.E. :
Pre-Ablation Post-Ablation
LVEF: 30-35 % 30-35 %
WMA: Global Global
Pericardial effusion: Small @ RV Trace @ LV
Small circumferential effusion around the right ventricle and trace effusion around the left ventricle which is observed with initial imaging prior to transseptal puncture and prior to placement of coronary sinus catheter.
There is no change in the pericardial effusion throughout the procedure including the very end of the procedure.
COMPLICATIONS:
None
SUMMARY:
- Mapping and ablation to isolate the PVs
- Additional AF ablation set after PVI.
- 3-D Electroanatomical Mapping
- Intracardiac Ultrasound
- Ultrasound guidance for vascular access
Post ablation, I called and left a voice message with her daughter who is listed as primary contact, Nallely.
RECOMMENDATIONS:
- Observe in monitored bed.
- Maintain oral anticoagulation.
- I will discontinue digoxin as in sinus rhythm and demonstrating mild sinus bradycardia. Will continue current dose of Coreg.
- Continued consideration for guideline directed medical therapy regarding heart failure with reduced ejection fraction as blood pressure and renal function would tolerate
- Continue cardiovascular care with Dr Morrison
Copy to:
Susie Jarquin PA-C
Blade Worker: Dr. Cam Read
[2024-03-29] MEDS: LANOXIN PO (16:23)
[2024-03-29] MEDS: ProAmatine PO (16:24)
[2024-03-29] MEDS: ANESTHETIC LOZENGE 1 LOZENGE PO ×2 (16:27→20:19)
[2024-03-29 16:33] LABS: Glucose - Point of Care 193 mg/dl (70-99)
--- NOTE | 2024-03-29 16:55 | CM ---
Patient for procedure today, then home with [facility].
Plan; Home with [facility] when stable.
[2024-03-29] MEDS: MUCINEX 600 MG PO (17:41)
--- NOTE | 2024-03-29 18:05 | PTCARENOTE ---
Received transfer from after PVI done via right femoral vein. Daughter at the bedside, patient oriented to the room and plan of care. Has been lying flat > one hour, HOB elevated 30 degrees. Right groin dressing is dry and intact. Patient has a
frequent sometimes harsh cough, aware to hold pressure to the right groin when coughing. Patient given a cepacol brent in PACU, medicated for throat discomfort with tylenol PO and given PM dose of mucinex since AM dose was held when she was NPO.
Monitoring VS, remains in SB, call vasquez in reach. Aware she may be oob at 1999 after figure of 8 clipped. Waiting for dinner.
[2024-03-29 18:15] LABS: Glucose - Point of Care 189 mg/dl (70-99)
[2024-03-29] MEDS: NOVOLOG FLEXPEN 5 UNITS SC (18:27)
[2024-03-29] MEDS: NOVOLOG FLEXPEN-LOW RESISTANCE 1 UNITS SC (18:27)
[2024-03-29 21:38] LABS: Glucose - Point of Care 183 mg/dl (70-99)
[2024-03-29] MEDS: CRESTOR 10 MG PO (22:17)
[2024-03-29] MEDS: LANTUS 0.2 UNITS SC (22:18)
[2024-03-30] VITALS (41 sets, daily range): BP systolic 73–170; BP diastolic 35–119; PULSE 54–59; O2SAT 97; BMI 24.2
--- NOTE | 2024-03-30 01:40 | W.PN.UPDATE ---
Update Note
Progress Note Update
Patient noted with expiratory wheezing and cough. Denied SOB, chest pain. Spo2 97% RA, afebrile, bp 142/71, hr 68.
Covid test ordered (neg), PRN nebs and chest x-ray ordered.
[2024-03-30] MEDS: DUONEB 3 ML INH ×2 (02:06→22:14)
[2024-03-30] MEDS: ROBITUSSIN DM 5 ML PO ×2 (02:20→14:20)
[2024-03-30 03:06] LABS: COVID-19 Antigen Negative (Negative)
--- NOTE | 2024-03-30 03:27 | PTCARENOTE ---
Pt NSR on monitor. Frequent loose cough, expiratory whizzing. Cxray done, respiratory Tx completed. Pt with no urine output for over 8 hrs. Straight cath for 250ml ted urine.
[2024-03-30 05:02] LABS: Hematocrit 37.2 % (37.0-47.0); Hemoglobin 12.3 g/dL (12.0-16.0); Mean Corp Hgb Conc. 33.1 g/dL (33.0-37.0); Mean Corpuscular Hgb 29.9 pg (27.0-31.0); Mean Corpuscular Volume 90.5 fL (81.0-99.0); Mean Platelet Volume 11.9 fL (7.4-10.4); Platelet Count 109 10^3/uL (130-400); Red Blood Cell Count 4.11 10^6/uL (4.20-5.40); White Blood Cell Count 12.4 10^3/uL (4.8-10.8)
[2024-03-30 05:29] LABS: Blood Urea Nitrogen 52 mg/dl (7-17); Calcium 8.5 mg/dl (8.4-10.2); Carbon Dioxide 23 mmol/L (22-30); Chloride 102 mmol/L (98-107); Estimated Creatinine Clearance 23 ml/min; Glucose 207 mg/dl (70-99); Magnesium 2.1 mg/dl (1.6-2.3); Potassium 5.3 mmol/L (3.5-5.1); Sodium 135 mmol/L (135-145); eGFR 27.61
[2024-03-30] MEDS: SYNTHROID 75 MCG PO (05:55)
--- NOTE | 2024-03-30 06:13 | PTCARENOTE ---
Pt NSR with PACs on monitor. C/o b/l foot pain PRN Tylenol given. Pt ambulates with assistx1 and RW in the room
[2024-03-30] MEDS: COREG 12.5 MG PO (08:28)
[2024-03-30] MEDS: ProAmatine 5 MG PO ×3 (08:28→17:42)
[2024-03-30] MEDS: MUCINEX 600 MG PO ×2 (08:28→20:15)
[2024-03-30] MEDS: ELIQUIS 2.5 MG PO ×2 (08:29→20:15)
[2024-03-30] MEDS: VITAMIN B-12 1000 MCG PO (08:29)
[2024-03-30] MEDS: LIDOCAINE 4% PATCH 1 PATCH TOPICAL (08:29)
--- NOTE | 2024-03-30 08:29 | W.PN.CARDCBS ---
Addendum entered and electronically signed by Andrew Jansen MD 03/30/24 10:13:
Patient seen, interviewed and examined by me.
I reviewed yesterday's procedure as well as our findings and our results in detail with the patient.
We discussed that given her persistent atrial fibrillation the likelihood of maintaining sinus rhythm after ablation is approximately 70%.
Well-appearing, no acute distress
Regular rate and rhythm with normal S1 and S2, no S3 no S4. There is a grade 1/6 apical holosystolic murmur and no rubs. PMI is laterally and inferiorly displaced
Lungs are clear to auscultation bilaterally without wheezes rales or rhonchi.
Abdomen soft nontender nondistended with normoactive bowel sounds
Extremities show trace pretibial edema bilaterally no clubbing or cyanosis.
Neurologic exam is grossly nonfocal.
EKG this morning finds sinus rhythm. I also reviewed telemetry from overnight and she has been maintaining sinus rhythm since her ablation yesterday.
Maintain oral anticoagulation for atrial fibrillation related thromboembolic risk reduction.
Maintain carvedilol which will assist with rate control should she recur with atrial tachyarrhythmias
I did stop digoxin yesterday.
Regarding decompensated congestive heart failure/new diagnosis of heart failure with reduced ejection fraction, it is likely this was tachycardia and arrhythmia mediated.
Consider repeat echocardiogram in 2 to 3 months to reassess LV function if she is able to maintain sinus rhythm.
Continue attempts at maximally tolerated doses of guideline directed medical therapy which currently includes carvedilol and maximally tolerated dose, limited by hypotension. SRINIVAS-I/ARBs are limited by both hypotension and chronic kidney disease.
There may be an opportunity to consider SGLT2 inhibitor.
I would expect her to continue to have orthostasis. Goal of treatment is not necessarily to eliminate orthostatic vital sign values but to alleviate and not necessarily even eliminate all symptoms related to orthostasis.
Continue midodrine for now, follow blood pressure closely and there can be consideration for downward titration if she develops significant hypertension.
From a cardiology standpoint, she would be stable for discharge in any time. I did explain this to the patient and she understands.
Original Note:
Today's Communication / Plan
-
in SR s/p PVI
continue coreg, eliquis
wean midodrine as able
check proBNP
ambulate to reassess lightheadedness
Impression / Plan
-
PCP: Susie Jarquin PA-C
Sulfuric Acid Plant Supervisor: Dr. Read
Impression:
Presented with lightheadedness
Paroxysmal Afib
Intolerance of amiodarone, poor candidate for sotalol, dofetilide, 1C drugs
Chronic Eliquis OAC
s/p PVI 03/29/24
Acute HFrEF, new diagnosis
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
Orthostatic hypotension
CAD
s/p 3 mm Xience to prox LAD and bifurcation PTCA first diagonal and PTCA of OM1 superior and Inferior branches 02/2008
CKD 3/4
Elevated LFTs
DM 2
HTN
Hyperlipidemia
h/o CVA 2013
Echo 04/01/2022: EF 55%, mild cLVH, stage II diastolic dysfunction, mild MAC, mild to moderate MR, mild AI
Echo 03/17/2024: EF 35%, moderate tricuspid regurgitation and elevated pulmonary artery pressures estimated at 55-60 mmHg.
Plan:
-Presented with recurrent lightheadedness w/ episode of decreased responsiveness. Did not lose consciousness, but was staring ahead, not responding to family, and dropped cup.
-due to continued symptoms, she stayed inpatient and underwent PVI 03/29/24.
-she has maintained SR on review of tele post ablation. digoxin has been stopped. continue coreg.
-groin site soft, NTTP. hgb stable at 12.3
-continue eliquis 2.5mg BID
-overnight was noted to have some wheezing and cough. covid negative. add on proBNP. last from 03/20 was 11,200. Cr 1.8 today
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 GDMT uptitration limited by orthostasis/hypotension as well as CKD. currently on midodrine 5mg TID
-continue compression stockings
-ambulate patient to assess if lightheadedness improved post ablation.
-check ortho VS
HPI: Yesenia is an 83 year old female with PMH of paroxysmal atrial fibrillation, CAD w/ prior PCI, improved CM, CKD 4, DM2, HTN, HLD, and prior TIA. She was recently admitted at 03/12 to 03/13 for lightheadedness and rapid afib. She was placed on
higher dose carvedilol 25mg BID and heart rates improved, so she was discharged and followed up with cardiology in the office on 03/14 to discuss ablation. She remained in afib with improved heart rates at that visit and has been arranged for
ablation 04/12/2024. Yesterday she was sitting at the table drinking a soda when she became somewhat unresponsive. She did not pass out or lose pulse, but was staring blankly ahead and dropped the cup that was in her hand. She came to [facility] for
evaluation and was in rapid atrial fibrillation. She notes since being placed on higher dose carvedilol, she has had an increase in her episodes of lightheadedness and notes typically symptoms occur with position change. She was admitted overnight
for observation and follow up. She feels well this AM while resting in bed. HR fairly well controlled on review of telemetry, in the 90s to 100s.
Progress Note - Sulfuric Acid Plant Supervisor
Subjective
Date of Service: March 30, 2024
reports breathing improved this morning
Objective
Labs:
03/30/24 04:36
03/30/24 04:36
Labs
Hgb 12.3 g/dL (12.0-16.0) 03/30/24 04:36
Hct 37.2 % (37.0-47.0) 03/30/24 04:36
Plt Count 109 10^3/uL (130-400) L 03/30/24 04:36
PT 21.3 Sec (11.4-14.6) H 03/17/24 09:52
INR 1.82 03/17/24 09:52
Sodium 135 mmol/L (135-145) 03/30/24 04:36
Potassium 5.3 mmol/L (3.5-5.1) H 03/30/24 04:36
BUN 52 mg/dl (7-17) H 03/30/24 04:36
Creatinine 1.8 mg/dL (0.6-1.0) H 03/30/24 04:36
Glucose 207 mg/dl (70-99) H 03/30/24 04:36
Digoxin 0.6 ng/ml (0.8-2.0) L 03/21/24 06:38
Vital Signs and I&O:
Vital Signs
Temp Pulse Resp BP Pulse Ox
97.8 F 68 20 142/71 92
03/30/24 08:12 03/30/24 03:20 03/30/24 08:12 03/30/24 03:20 03/30/24 08:12
Vital Signs
Temp Pulse Resp BP Pulse Ox
97.8 F 68 20 142/71 92
03/30/24 08:12 03/30/24 03:20 03/30/24 08:12 03/30/24 03:20 03/30/24 08:12
Intake & Output
03/28/24 03/29/24 03/30/24 03/31/24
07:59 07:59 07:59 07:59
Intake Total 1200 / 1200 1140 / 1140 1200 / 1200
Output Total 250 / 250
Balance 1200 / 1200 1140 / 1140 950 / 950
Physical Exam
Physical Exam
GEN: No distress, awake, alert, oriented x3
HEENT: supple, anicteric, mmm, eomi
LUNGS: Mild exp wheezes
CV: Reg, S1/S2, 1/6 murmur
ABD: soft, BS+, NT/ND
EXT: No cyanosis, clubbing. Trace-1+ edema of B/L LE
NEURO: Gross non-focal
SKIN: Warm, pink, dry. No rash. R groin site with dressing c/d/i, soft, NTTP
[2024-03-30] MEDS: NOVOLOG FLEXPEN 5 UNITS SC ×3 (09:12→17:42)
[2024-03-30] MEDS: NOVOLOG FLEXPEN-LOW RESISTANCE 2 UNITS SC ×2 (09:13→17:41)
[2024-03-30 09:17] LABS: Glucose - Point of Care 217 mg/dl (70-99)
--- NOTE | 2024-03-30 09:23 | W.PN.HOSP.TC ---
Today's Communication/Plan
-
Discharge planning today
Assessment / Plan
Assessment / Plan
Physical exam:
General: No acute distress.
HEENT: Normocephalic, Atraumatic and Moist Mucous Membranes
Respiratory: Clear to Auscultation; Negative Wheezes, Rales or Rhonchi
Cardiac: Regular rate and rhythm and S1/S2
GI: Soft, Nontender and Nondistended
Musculoskeletal: No Clubbing, No Cyanosis. No bilateral lower extremity edema
Neuro: Awake, Alert and Oriented, no gross neurological deficit
Psych: Calm
Echocardiogram:
Normal left ventricular size.
Asymmetric septal hypertrophy.
Moderately reduced left ventricular systolic function.
LV ejection fraction is 35% by Christopher's method of discs.
Diastolic function indeterminate due to atrial fibrillation.
Normal right ventricular size.
Reduced right ventricular systolic function.
Trace aortic regurgitation.
Mitral sclerosis without stenosis.
Moderate tricuspid regurgitation.
Estimated pulmonary artery pressure of 55-60 mmHg assuming a right atrial
pressure of 8 mmHg.
The IVC is dilated and does not collapse.
Compared to 2022 echocardiogram Ejection fraction is now moderately reduced and
has dropped from 50-55% to 35%.
A/P:
Syncope:
This time it is likely related to hypotension but ultimately linked to her A-fib but also superimposed with an episode of UTI.
She had recent admission for A-fib RVR for which beta-gina was increased. Now beta-gina has to be decreased.
She has ablation scheduled for 04/12 by EP as outpatient.
Neurological workup unremarkable for acute finding but show some chronic abnormality on MRI of the brain. Neurology on board
Abnormal ultrasound of the abdomen but does not correlate clinically.
Continue carvedilol. Continue Coreg
She was started on digoxin but ultimately discontinued.
Continue Eliquis
Cardiology discontinued digoxin yesterday on 01/26
Status post cardiac ablation--> patient remains in normal sinus rhythm
Cardiology is clearing her for discharge today
Ideally she should go to rehab but she is hesitant on that. Either way she is medically cleared for discharge today and she will decide if she wants to go to rehab or home with visiting nurse and case technician has been consulted for discharge
disposition.
#Paroxysmal versus persistent atrial fibrillation:
Status post ablation on normal sinus rhythm
Rate control now Coreg 12.5 mg twice a day
Anticoagulation Eliquis 2.5 mg twice a day
#CLL -persistent leukocytosis
No fevers. Did not requite treatments in the past.
UTI:
Finished IV ceftriaxone 1 g daily for 5 days
Cultures grew E. coli
Left ventricular systolic dysfunction:
EF 35% compared to 50 to 55% on last echocardiogram
Suspect related to tachyarrhythmia but deferred to cardiology if she requires further ischemic and nonischemic workup. Cardiology feels is related to tachyarrhythmia.
Monitor volume status closely
GDMT limited due to hypotension and cardiology will reevaluate as outpatient
Hyponatremia:
Improved
CKD stage IIIb:
Avoid nephrotoxic
Monitor renal function
CAD:
Chest pain-free
Continue current anti-ischemic regimen
History of s/p 3 mm Xience to prox LAD and bifurcation PTCA first diagonal and PTCA of OM1 superior and Inferior branches 02/2008
Diabetes mellitus type 2:
better controlled.
Continue insulin sliding scale
Essential Hypertension:
Hypotension/probably orthostatic hypotension:
On midodrine
Hyperlipidemia:
Continue statin
Hypothyroidism:
Continue thyroid place
History of TIA/CVA:
On Eliquis and statin
DVT prophylaxis:
Eliquis
CODE STATUS:
Full code
Anticipated Discharge: Today
Subjective/Interval History
-
Date of Service: March 30, 2024
Patient feels slight lightheadedness. No chest pain. Shortness of breath overnight but feels better this morning. Afebrile
Objective Data
-
Labs:
Laboratory Results
03/30/24
04:36
WBC 12.4 H
Hgb 12.3
Hct 37.2
Plt Count 109 L
Sodium 135
Potassium 5.3 H
Chloride 102
Carbon Dioxide 23
BUN 52 H
Creatinine 1.8 H
Glucose 207 H
Calcium 8.5
Vital Signs:
Vital Signs
Temp Pulse Resp BP Pulse Ox
97.8 F 59 20 101/35 92
03/30/24 08:12 03/30/24 08:50 03/30/24 08:12 03/30/24 08:50 03/30/24 08:12
I&O
03/29/24 03/30/24 03/31/24
06:59 06:59 06:59
Intake Total 1140 / 1140 1200 / 1200
Output Total 250 / 250
Balance 1140 / 1140 950 / 950
[2024-03-30 09:43] LABS: NT-proBNP 7310 pg/ml
--- NOTE | 2024-03-30 09:45 | CM ---
Addendum entered by Court Kolb 03/30/24 12:07:
Received telephone call from [facility] regarding referral. Sent referral to [facility].
Original Note:
Reviewed chart. Mrs. Diaz was transferred to IVU. Met with Mrs. Diaz to review discharge plans. She states prior to admission she resides with her spouse in a three story home with three steps to enter. She states she has a full flight of
steps to get to bedroom. She states she has a full bathroom on the first floor. She states prior to admission she was independent with ambulation and adls. She states she does uses a quad cane when needed. She has a quad cane at home. She states
she has a prescription plan and uses [facility]. Will need to see her current functional level to see if she will have any skilled care needs. Medical work-up in progress. The discharge plan is to return home with her spouse,
[facility] and Palliative Care when medically stable.
--- NOTE | 2024-03-30 09:46 | PTCARENOTE ---
Addendum entered by Ministerio Alvarado RN 03/30/24 12:14:
Assumed care at 0700. Patient AO x3. SB HR 50's, BP sitting 146/58. Ortho VS completed some lightheadedness with standing lying BP 140/58, sitting 101/85, standing 101/35. Assisted to commode to void, no urine output since she was straight cath at
0230 for 250 cc. Loose non-productive cough, course breath sounds left base. Right groin dressing removed, rotary screen printing machine operator. Stage II on right buttocks, chair cushion and barrier cream applied. In chair, call vasquez in reach
Original Note:
Assumed care at 0700. Patient AO x3. SB HR 50's, BP sitting 146/58. Ortho VS completed some lightheadedness with standing lying BP 140/58, sitting 101/85, standing 101/35. Assisted to commode to void, no urine output since she was straight cath at
0230 for 250 cc. Loose non-productive cough, course breath sounds right base. Right groin dressing removed, rotary screen printing machine operator. Stage II on right buttocks, chair cushion and barrier cream applied. In chair, call vasquez in reach
[2024-03-30 12:10] LABS: Glucose - Point of Care 253 mg/dl (70-99)
--- NOTE | 2024-03-30 12:22 | W.PN.UPDATE ---
Update Note
Progress Note Update
Rapid response on the IVU for patient with near syncope/syncope while working with PT. Patient admitted 03/16/24 with Afib and CHF. Patient IV diuresed earlier this admission and was started on midodrine for hypotension. Also had Coreg dose increased
from 3.125 mg BID to 12.5 mg BID for HR control. Digoxin started and stopped this admission and digoxin level was 0.6 on 03/21/24. Upon arrival to room patient was back in bed and awake and talking. No changes on tele around this event. BP was 73/56
at start of episode and was 121/70 on my arrival. Rapid response called. Urgent ECG ordered and reviewed by me, looks like SR without acute ST changes. Called for and ordered urgent bedside echo to r/o effusion, no evidence of pericardial effusion
on echo. Ordered urgent CMP, magnesium and CBC. Await labs. Ordered NSS 500 ml bolus to run over the next hour. EF was 35% on last echo.
34 min in critical care time.
--- NOTE | 2024-03-30 12:30 | PTCARENOTE ---
Patient working with PT and became unresponsive and hypotensive assisted back to bed. BP 73/56, placed in Trendelenburg, Rapid response called. Patient sternally rub, now responding and following commands, tongue dry. Labs collected, IV bolus given.
BP now 121/70
--- NOTE | 2024-03-30 12:40 | W.PN.UPDATE ---
Update Note
Progress Note Update
Patient had SETTER HELPER after having syncope with PT session and cardiology reevaluate patient at bedside. Patient was transiently hypotensive. Cardio ordering stat Echo and bolus NS 500 ml. Cancel d/c for now and continue cardiac monitoring. By the time of
my eval patient alert and oriented and having echo being performed.
[2024-03-30 12:45] LABS: Hematocrit 37.9 % (37.0-47.0); Hemoglobin 12.3 g/dL (12.0-16.0); Mean Corp Hgb Conc. 32.5 g/dL (33.0-37.0); Mean Corpuscular Hgb 29.4 pg (27.0-31.0); Mean Corpuscular Volume 90.5 fL (81.0-99.0); Mean Platelet Volume 11.9 fL (7.4-10.4); Platelet Count 128 10^3/uL (130-400); Red Blood Cell Count 4.19 10^6/uL (4.20-5.40); Red Cell Dist. Width 15.2 % (11.5-14.5); White Blood Cell Count 12.7 10^3/uL (4.8-10.8)
[2024-03-30 13:07] LABS: ALT (SGPT) 33 U/L (0-35); AST (SGOT) 67 U/L (14-36); Albumin 4.1 g/dl (3.5-5.0); Alkaline Phosphatase 103 U/L (38-126); Blood Urea Nitrogen 55 mg/dl (7-17); Calcium 8.5 mg/dl (8.4-10.2); Carbon Dioxide 18 mmol/L (22-30); Chloride 97 mmol/L (98-107); Estimated Creatinine Clearance 21 ml/min; Glucose 224 mg/dl (70-99); Magnesium 2.3 mg/dl (1.6-2.3); Potassium 5.3 mmol/L (3.5-5.1); Sodium 130 mmol/L (135-145); Total Bilirubin 1.4 mg/dl (0.2-1.3); Total Protein 6.3 g/dl (6.3-8.2); eGFR 24.33
[2024-03-30] MEDS: NOVOLOG FLEXPEN-LOW RESISTANCE 3 UNITS SC (13:12)
--- NOTE | 2024-03-30 14:11 | PTCARENOTE ---
Straight cath for 200 cc of concentrated yellow urine
[2024-03-30] MEDS: NSS 500 IV (14:12)
[2024-03-30 17:37] LABS: Glucose - Point of Care 221 mg/dl (70-99)
[2024-03-30] MEDS: ANESTHETIC LOZENGE 1 LOZENGE PO (17:42)
--- NOTE | 2024-03-30 18:17 | PTCARENOTE ---
Patient complaints of a sore throat, Cepacol lozenge given. Loose non-productive cough, coarse breath sounds left base, intermittent audible wheezes that appears to clear with coughing. Remains oliguric. Eating and drink fair. SB HR 53, 140/68
denies lightheadedness
[2024-03-30] MEDS: TYLENOL 650 MG PO (20:24)
[2024-03-30 21:56] LABS: Glucose - Point of Care 185 mg/dl (70-99)
[2024-03-30] MEDS: LANTUS 0.2 UNITS SC (22:42)
[2024-03-30] MEDS: COREG 3.125 MG PO (22:45)
[2024-03-30] MEDS: CRESTOR 10 MG PO (22:51)
[2024-03-31] VITALS (13 sets, daily range): BP systolic 98–151; BP diastolic 44–104; PULSE 51–56; BMI 25.3
[2024-03-31] MEDS: TYLENOL 650 MG PO ×3 (04:21→19:05)
[2024-03-31] MEDS: SYNTHROID 75 MCG PO (04:21)
[2024-03-31 05:02] LABS: Hematocrit 34.1 % (37.0-47.0); Hemoglobin 11.2 g/dL (12.0-16.0); Mean Corp Hgb Conc. 32.8 g/dL (33.0-37.0); Mean Corpuscular Hgb 29.2 pg (27.0-31.0); Mean Platelet Volume 11.7 fL (7.4-10.4); Platelet Count 110 10^3/uL (130-400); Red Blood Cell Count 3.83 10^6/uL (4.20-5.40); White Blood Cell Count 12.1 10^3/uL (4.8-10.8)
[2024-03-31 05:27] LABS: Blood Urea Nitrogen 59 mg/dl (7-17); Calcium 8.2 mg/dl (8.4-10.2); Carbon Dioxide 21 mmol/L (22-30); Chloride 99 mmol/L (98-107); Estimated Creatinine Clearance 22 ml/min; Glucose 156 mg/dl (70-99); Potassium 5.4 mmol/L (3.5-5.1); Sodium 128 mmol/L (135-145); eGFR 25.88
[2024-03-31 05:33] LABS: % Basophils 0.3 % (0-2); % Eosinophils 1.1 % (0-6); % Immature Granulocytes 0.5 % (0-0.5); % Lymphocytes 35.1 % (20.5-51.1); % Monocytes 7.4 % (1.7-9.3); % Neutrophils 55.6 % (42.2-75.2); Absolute Eosinophils 0.1 10^3/uL (0-0.7); Absolute Immature Granulocytes 0.1 10^3/uL (0-0.05); Absolute Lymphocytes 4.3 10^3/uL (1.2-3.4); Absolute Monocytes 0.9 10^3/uL (0.1-0.6); Absolute Neutrophils 6.8 10^3/uL (1.4-6.5); Nucleated Red Blood Cells % 0 %
[2024-03-31 05:58] LABS: Cortisol, Random 5.7 ug/dl; TSH Reflex To Free T4 3.09 uIU/ml (0.47-4.68)
--- NOTE | 2024-03-31 06:12 | PTCARENOTE ---
Pt SB on monitor. SUERO and expiratory whizzing. Neb Tx given. Pt with low urine output. Bladder scan for 321ml, pt denies urgency to urinate. Pt was able tolerate OOB to bedside commode with assist x1.
[2024-03-31] MEDS: NOVOLOG FLEXPEN-LOW RESISTANCE SC ×3 (07:53→17:15)
[2024-03-31 07:54] LABS: Glucose - Point of Care 136 mg/dl (70-99)
[2024-03-31] MEDS: LIDOCAINE 4% PATCH 1 PATCH TOPICAL (07:54)
[2024-03-31] MEDS: NOVOLOG FLEXPEN 5 UNITS SC ×3 (07:54→17:12)
[2024-03-31] MEDS: ProAmatine 5 MG PO ×3 (07:54→18:24)
[2024-03-31] MEDS: ELIQUIS 2.5 MG PO ×2 (07:54→20:11)
[2024-03-31] MEDS: MUCINEX 600 MG PO ×2 (07:54→20:05)
[2024-03-31] MEDS: COREG 3.125 MG PO ×2 (07:54→20:05)
[2024-03-31] MEDS: VITAMIN B-12 1000 MCG PO (07:54)
--- NOTE | 2024-03-31 08:58 | PTCARENOTE ---
Assumed care. Patient awake on her phone. Denies shortness of breath, audible expiratory wheezes, course breath sounds, inspiratory/expiratory wheezes, POX 94% on room air. Lower leg edema left +2 pitting, right +1. VSS, SB HR 56. Purwick in place,
some yellow urine in canister.
--- NOTE | 2024-03-31 09:04 | W.PN.CARDCBS ---
Addendum entered and electronically signed by Jose Stone MD 03/31/24 13:20:
Patient feels weak, was able to stand with a walker, had syncopal/near syncopal episode, was in sinus rhythm without bradycardia, is lightheaded with standing, was living independently prior to admission
PMH: Paroxysmal A-fib, amiodarone intolerance, HFrEF, now heart failure with improved EF, 40-45% March 30, remote Xience stent to proximal LAD with PTCA of diagonal and OM, CKD 3 4, diabetes, hypertension, hyperlipidemia, remote stroke
Current medications: Apixaban 2.5 twice daily, levothyroxine 75 mcg daily, rosuvastatin 10 mg at bedtime, midodrine 5 mg 3 times daily, insulin, carvedilol decreased from 12.5-3.125 twice daily
98/70, pulse 52, respiratory 20, afebrile, sats 97, appears fatigued, no acute distress lungs are clear, bradycardic regular rate and rhythm, abdomen benign extremities with trace edema
TSH normal
Impression:
See below
Plan: From a cardiac standpoint, she is relatively stable and is still maintaining sinus rhythm.
Her syncopal episode was not related to bradycardia suspect more orthostasis. Carvedilol has been decreased and we may need to discontinue.
Her cortisol level is at the lower range of normal, defer to primary care service as to best strategy. She is hyponatremic and hyperkalemic
Will follow orthostatics, we may need to uptitrate midodrine
She remains with diminished EF but actually improved to 40-45%
Patient had been living independently, unclear that she will be able to return directly to home.
Continue to monitor.
Original Note:
Today's Communication / Plan
-
ambulate today. check ortho VS
coreg dose reduced. continue midodrine, wean as able
in SR
Impression / Plan
-
PCP: Susie Jarquin PA-C
Grinder Operator Automatic: Dr. Read
Impression:
Presented with lightheadedness
Paroxysmal Afib
Intolerance of amiodarone, poor candidate for sotalol, dofetilide, 1C drugs
Chronic Eliquis OAC
s/p PVI 03/29/24
Acute HFrEF, new diagnosis
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
Orthostatic hypotension
CAD
s/p 3 mm Xience to prox LAD and bifurcation PTCA first diagonal and PTCA of OM1 superior and Inferior branches 02/2008
CKD 3/4
Elevated LFTs
DM 2
HTN
Hyperlipidemia
h/o CVA 2013
Echo 04/01/2022: EF 55%, mild cLVH, stage II diastolic dysfunction, mild MAC, mild to moderate MR, mild AI
Echo 03/17/2024: EF 35%, moderate tricuspid regurgitation and elevated pulmonary artery pressures estimated at 55-60 mmHg.
Plan:
-Presented with recurrent lightheadedness w/ episode of decreased responsiveness. Did not lose consciousness, but was staring ahead, not responding to family, and dropped cup.
-due to continued symptoms, she stayed inpatient and underwent PVI 03/29/24.
-03/30 she had episode of syncope while working with PT. during event, rhythm remained sinus and no bailey or pauses noted.
-urgent echo 03/30 with EF 40-45% and no evidence of pericardial effusion
-R groin site soft, NTTP. hgb 11.2. continue eliquis 2.5mg BID
-digoxin has been stopped post ablation. coreg dose decreased 03/30 to 3.125mg BID with hold parameters in place
-check ortho VS
-EF improving by echo 03/30. suspected tachy mediated CM. GDMT uptitration limited by orthostasis/hypotension as well as CKD. Cr 1.9 on 03/31.
-remains on midodrine 5mg TID. wean as able
-continue compression stockings
-ambulate patient
-she remains with some wheezing on exam. proBNP downtrending from earlier this admission, however also with worsening hyponatremia and hyperkalemia. not presently on lasix with syncope 03/30. covid negative 03/30. afebrile. CXR 03/30 without acute
process
HPI: Yesenia is an 83 year old female with PMH of paroxysmal atrial fibrillation, CAD w/ prior PCI, improved CM, CKD 4, DM2, HTN, HLD, and prior TIA. She was recently admitted at 03/12 to 03/13 for lightheadedness and rapid afib. She was placed on
higher dose carvedilol 25mg BID and heart rates improved, so she was discharged and followed up with cardiology in the office on 03/14 to discuss ablation. She remained in afib with improved heart rates at that visit and has been arranged for
ablation 04/12/2024. Yesterday she was sitting at the table drinking a soda when she became somewhat unresponsive. She did not pass out or lose pulse, but was staring blankly ahead and dropped the cup that was in her hand. She came to [facility] for
evaluation and was in rapid atrial fibrillation. She notes since being placed on higher dose carvedilol, she has had an increase in her episodes of lightheadedness and notes typically symptoms occur with position change. She was admitted overnight
for observation and follow up. She feels well this AM while resting in bed. HR fairly well controlled on review of telemetry, in the 90s to 100s.
Progress Note - Grinder Operator Automatic
Subjective
Date of Service: March 31, 2024
no present dizziness/lightheadedness. no groin pain
Objective
Labs:
03/31/24 03:52
03/31/24 03:52
Labs
Hgb 11.2 g/dL (12.0-16.0) L 03/31/24 03:52
Hct 34.1 % (37.0-47.0) L 03/31/24 03:52
Plt Count 110 10^3/uL (130-400) L 03/31/24 03:52
PT 21.3 Sec (11.4-14.6) H 03/17/24 09:52
INR 1.82 03/17/24 09:52
Sodium 128 mmol/L (135-145) L 03/31/24 03:52
Potassium 5.4 mmol/L (3.5-5.1) H 03/31/24 03:52
BUN 59 mg/dl (7-17) H 03/31/24 03:52
Creatinine 1.9 mg/dL (0.6-1.0) H 03/31/24 03:52
Glucose 156 mg/dl (70-99) H 03/31/24 03:52
Digoxin 1.0 ng/ml (0.8-2.0) 03/30/24 12:32
Vital Signs and I&O:
Vital Signs
Temp Pulse Resp BP Pulse Ox
97.7 F 56 20 135/62 94
03/31/24 07:26 03/31/24 08:00 03/31/24 07:26 03/31/24 07:25 03/31/24 07:26
Vital Signs
Temp Pulse Resp BP Pulse Ox
97.7 F 56 20 135/62 94
03/31/24 07:26 03/31/24 08:00 03/31/24 07:26 03/31/24 07:25 03/31/24 07:26
Intake & Output
03/29/24 03/30/24 03/31/24 04/01/24
07:59 07:59 07:59 07:59
Intake Total 1140 / 1140 1200 / 1200 1080 / 1080
Output Total 250 / 250 375 / 375
Balance 1140 / 1140 950 / 950 705 / 705
Physical Exam
Physical Exam
GEN: No distress, awake, alert, oriented x3
HEENT: supple, anicteric, mmm, eomi
LUNGS: Mild exp wheezes
CV: Reg, S1/S2, 1/6 murmur
ABD: soft, BS+, NT/ND
EXT: No cyanosis, clubbing. Trace edema of B/L LE, compression stockings in place
NEURO: Gross non-focal
SKIN: Warm, pink, dry. No rash. R groin site with dressing c/d/i, soft, NTTP
--- NOTE | 2024-03-31 09:20 | W.PN.HOSP.TC ---
Addendum entered and electronically signed by Eric Suarez MD 03/31/24 16:19:
I reached out to Endocrinology regarding relative abn cortisol (Dr Samantha Dowling)- but prob will do stim cosyntropin test over the weekend unless different advise.
Addendum entered and electronically signed by Eric Suarez MD 03/31/24 14:28:
Updated daughter over the phone
Addendum entered and electronically signed by Eric Suarez MD 03/31/24 12:58:
Cortisol level not great but not as bad to diagnose adrenal insufficiency. Cortisol 5.7. Consider repeat as outpatient or ACTH stimulation test. TSH normal 3.09
Original Note:
Today's Communication/Plan
-
Monitor blood pressure and ambulate.
Assessment / Plan
Assessment / Plan
Physical exam:
General: No acute distress.
HEENT: Normocephalic, Atraumatic and Moist Mucous Membranes
Respiratory: Clear to Auscultation; Negative Wheezes, Rales or Rhonchi
Cardiac: Regular rate and rhythm and S1/S2
GI: Soft, Nontender and Nondistended
Musculoskeletal: No Clubbing, No Cyanosis. No bilateral lower extremity edema
Neuro: Awake, Alert and Oriented, no gross neurological deficit
Psych: Calm
Echocardiogram:
Normal left ventricular size.
Asymmetric septal hypertrophy.
Moderately reduced left ventricular systolic function.
LV ejection fraction is 35% by Christopher's method of discs.
Diastolic function indeterminate due to atrial fibrillation.
Normal right ventricular size.
Reduced right ventricular systolic function.
Trace aortic regurgitation.
Mitral sclerosis without stenosis.
Moderate tricuspid regurgitation.
Estimated pulmonary artery pressure of 55-60 mmHg assuming a right atrial
pressure of 8 mmHg.
The IVC is dilated and does not collapse.
Compared to 2022 echocardiogram Ejection fraction is now moderately reduced and
has dropped from 50-55% to 35%.
A/P:
Syncope:
This time it is likely related to hypotension but ultimately linked to her A-fib but also superimposed with an episode of UTI.
She had recent admission for A-fib RVR for which beta-gina was increased. Now beta-gina has to be decreased.
She has ablation scheduled for 04/12 by EP as outpatient.
Neurological workup unremarkable for acute finding but show some chronic abnormality on MRI of the brain. Neurology on board
Abnormal ultrasound of the abdomen but does not correlate clinically.
Continue carvedilol. Continue Coreg
She was started on digoxin but ultimately discontinued.
Continue Eliquis
Cardiology discontinued digoxin yesterday on 01/26
Status post cardiac ablation--> patient remains in normal sinus rhythm
Cardiology is clearing her for discharge today
Ideally she should go to rehab but she is hesitant on that. Either way she is medically cleared for discharge today and she will decide if she wants to go to rehab or home with visiting nurse and rn case mgr has been consulted for discharge
disposition.
Orthostatic hypotension
Patient had HAND CROCHETER yesterday for hypotension and received fluids and follow-up echocardiogram unremarkable.
Beta-gina has been decreased
Today blood pressure much better but still soft and slightly bradycardic so we will monitor. Remains in sinus rhythm.
Continue to monitor and increase ambulation
#Paroxysmal versus persistent atrial fibrillation:
Status post ablation on normal sinus rhythm
Rate control now Coreg 3.125 mg twice a day
Anticoagulation Eliquis 2.5 mg twice a day
#CLL -persistent leukocytosis
No fevers. Did not requite treatments in the past.
UTI:
Finished IV ceftriaxone 1 g daily for 5 days
Cultures grew E. coli
Left ventricular systolic dysfunction:
EF 35% compared to 50 to 55% on last echocardiogram
Suspect related to tachyarrhythmia but deferred to cardiology if she requires further ischemic and nonischemic workup. Cardiology feels is related to tachyarrhythmia.
Monitor volume status closely
GDMT limited due to hypotension and cardiology will reevaluate as outpatient
Hyponatremia:
Improved
CKD stage IIIb:
Avoid nephrotoxic
Monitor renal function
CAD:
Chest pain-free
Continue current anti-ischemic regimen
History of s/p 3 mm Xience to prox LAD and bifurcation PTCA first diagonal and PTCA of OM1 superior and Inferior branches 02/2008
Diabetes mellitus type 2:
better controlled.
Continue insulin sliding scale
Essential Hypertension:
Hypotension/probably orthostatic hypotension:
On midodrine
Hyperlipidemia:
Continue statin
Hypothyroidism:
Continue thyroid place
History of TIA/CVA:
On Eliquis and statin
DVT prophylaxis:
Eliquis
CODE STATUS:
Full code
Anticipated Discharge: 24 - 48 hours
Subjective/Interval History
-
Date of Service: March 31, 2024
Patient feels better. No chest pain or shortness of breath today. Blood pressure soft today. Has not been out of bed by the time of my evaluation.
Objective Data
-
Labs:
Laboratory Results
03/31/24
03:52
WBC 12.1 H
Hgb 11.2 L
Hct 34.1 L
Plt Count 110 L
Sodium 128 L
Potassium 5.4 H
Chloride 99
Carbon Dioxide 21 L
BUN 59 H
Creatinine 1.9 H
Glucose 156 H
Calcium 8.2 L
Vital Signs:
Vital Signs
Temp Pulse Resp BP Pulse Ox
97.7 F 56 20 135/62 94
03/31/24 07:26 03/31/24 08:00 03/31/24 07:26 03/31/24 07:25 03/31/24 07:26
I&O
03/30/24 03/31/24 04/01/24
06:59 06:59 06:59
Intake Total 1200 / 1200 1080 / 1080
Output Total 250 / 250 375 / 375
Balance 950 / 950 705 / 705
[2024-03-31] MEDS: LOKELMA 10 GRAM PO (10:00)
[2024-03-31] MEDS: ANESTHETIC LOZENGE 1 LOZENGE PO ×2 (11:10→18:28)
--- NOTE | 2024-03-31 11:27 | PTCARENOTE ---
Walked in the room with rolling walker BP sitting 131/80, feeling slightly lightheaded. Returned to chair BP 98/70
[2024-03-31 11:38] LABS: Glucose - Point of Care 121 mg/dl (70-99)
--- NOTE | 2024-03-31 12:16 | CM ---
Addendum entered by Mirella Taylor 03/31/24 15:03:
[facility] and [facility] will not have a bed until wednesday, cm to follow up wednesday.
Addendum entered by Court Kolb 03/31/24 14:09:
Met with Mrs. Diaz and telephone call to her daughter, Yesenia to review discharge plans. Reviewed home with [facility] versus SNF/Rehab. Mrs. Diaz does not know what to do. Spoke with her daughter and reviewed options. Daughter states
another family member has been in [facility]. in the past. Daughter agreeable to having referral sent to [facility] and [facility]. Telephone call to [facility] Admissions to make the referral. Sent the referral. Telephone call to [facility]
Admissions to make the referral. Sent referral. Await response for SNF's regarding ability to accept. Daughter request private caregiver list to review for possible help at home. Mrs. Diaz daughters having been taking turn staying with "Karlos"Emily while she is in the hospital. Medical work-up in progress. The discharge plan is to go to SNF/Rehab. when bed available.
Original Note:
Reviewed chart. Met with Mrs. Diaz to review discharge plans. We reviewed VNA services with [facility]. She is agreeable to [facility]. Prior to admission she resides with his spouse in a three story home with three
steps to enter. She has a full flight of steps to get to bedroom/ full bathroom. She has a full bathroom on the first floor. Prior to admission she was independent with ambulation and adls. She has a quad cane at home to use if needed. She has a
prescription plan and uses [facility]. Will need to see her current functional level to see if she will have any skilled care needs. Medical work-up in progress. The discharge plan is to return home with her spouse and [facility] when medically stable.
[2024-03-31 17:10] LABS: Glucose - Point of Care 126 mg/dl (70-99)
--- NOTE | 2024-03-31 19:05 | PTCARENOTE ---
Report given to Naila, patient assisted to bed
[2024-03-31] MEDS: ELIQUIS PO (20:05)
[2024-03-31] MEDS: DUONEB 3 ML INH (20:35)
[2024-03-31 21:30] LABS: Glucose - Point of Care 140 mg/dl (70-99)
[2024-03-31] MEDS: LANTUS 0.2 UNITS SC (21:30)
[2024-03-31] MEDS: CRESTOR 10 MG PO (21:30)
--- NOTE | 2024-03-31 23:34 | PTCARENOTE ---
Assumed care of the pt @ 1900. Pt is AAOx3 assisted back to bed with rolling walker. SB on the monitor VSS. Lungs insp and exp wheezing NPC. Neb treatment given. Purewick in place draining yellow urine. POC discussed with pt. Call vasquez within reach.
[2024-04-01] VITALS (15 sets, daily range): BP systolic 106–175; BP diastolic 49–68; PULSE 60; BMI 24.8
[2024-04-01 03:50] LABS: Hematocrit 35.9 % (37.0-47.0); Hemoglobin 11.9 g/dL (12.0-16.0); Mean Corp Hgb Conc. 33.1 g/dL (33.0-37.0); Mean Corpuscular Hgb 29.9 pg (27.0-31.0); Mean Corpuscular Volume 90.2 fL (81.0-99.0); Mean Platelet Volume 11.7 fL (7.4-10.4); Platelet Count 122 10^3/uL (130-400); Red Blood Cell Count 3.98 10^6/uL (4.20-5.40); Red Cell Dist. Width 14.9 % (11.5-14.5); White Blood Cell Count 12.9 10^3/uL (4.8-10.8)
[2024-04-01 04:16] LABS: Blood Urea Nitrogen 52 mg/dl (7-17); Calcium 8.5 mg/dl (8.4-10.2); Carbon Dioxide 24 mmol/L (22-30); Chloride 99 mmol/L (98-107); Estimated Creatinine Clearance 24 ml/min; Glucose 89 mg/dl (70-99); Potassium 4.5 mmol/L (3.5-5.1); Sodium 131 mmol/L (135-145); eGFR 29.57
[2024-04-01] MEDS: TYLENOL 650 MG PO ×2 (05:29→20:23)
[2024-04-01] MEDS: SYNTHROID 75 MCG PO (05:29)
[2024-04-01 07:23] LABS: Glucose - Point of Care 83 mg/dl (70-99)
[2024-04-01] MEDS: ProAmatine 5 MG PO (08:40)
[2024-04-01] MEDS: MUCINEX 600 MG PO ×2 (08:40→20:16)
[2024-04-01] MEDS: COREG 3.125 MG PO (08:41)
[2024-04-01] MEDS: VITAMIN B-12 1000 MCG PO (08:41)
[2024-04-01] MEDS: LIDOCAINE 4% PATCH 1 PATCH TOPICAL (08:41)
[2024-04-01] MEDS: ELIQUIS 2.5 MG PO ×2 (08:41→20:16)
[2024-04-01] MEDS: DUONEB 3 ML INH ×3 (09:01→18:36)
--- NOTE | 2024-04-01 09:19 | PTCARENOTE ---
Assumed care. pt sr on the monitor, hr in the 80s, vss. pt w/ audible expiratory wheezes, course breath sounds, inspiratory/expiratory wheezes, POX 95% on room air. neb tx given. Lower leg edema left +1. Purewick in place, some yellow urine in
canister.
--- NOTE | 2024-04-01 09:53 | W.PN.CARDCBS ---
Addendum entered and electronically signed by Jose Stone MD 04/01/24 12:01:
She complains of back pain
Current medications: Apixaban 2.5 twice daily, B12, levothyroxine 75 mcg daily, rosuvastatin 10 mg at bedtime, Lantus, carvedilol 3.125 daily, midodrine 10 mg 3 times daily, cosyntropin stim test in process
137/60, pulse 58, respiratory rate 17, afebrile, sats 95%, weight is 71.8 kg, down 1.4 kg, still orthostatic, chronically ill, complaining of back pain, lungs relatively clear perhaps rare crackles at bases, JVD okay, not much edema, regular rate
and rhythm without obvious systolic murmurs
Chest x-ray small left effusion, possible vascular congestion, weight had been 67.7 kg on March 22
White count 12.9, hemoglobin 11.9, sodium 131, potassium 4.5, creatinine 1.7, had been 1.9, proBNP on the was 7310, had been 11,200 prior to that
Echo EF 40-45% mild MR, moderate TR, pulmonary artery systolic pressure 60-65 mmHg
Telemetry-sinus rhythm/bradycardia
Impression:
Sinus bradycardia status post PVI 03/29/2024
HFrEF, question whether well-controlled at present
Orthostasis
Remote CAD/PCI
CKD 3/4
Diabetes
Hypertension
Plan:
Overall relatively stable cardiac standpoint
However, chest x-ray could be consistent with volume overload. Recheck proBNP currently she is not on a diuretic.
Still intermittently hypotensive, and weak, no recent orthostatics obtained.
Initial plan had been to increase midodrine, but for now we will stop carvedilol and continue midodrine 5 mg 3 times daily.
She has been getting nebs for dyspnea.
Original Note:
Today's Communication / Plan
-
Increase midodrine to 10 mg TID
Impression / Plan
-
PCP: Susie Jarquin PA-C
Taxonomy Teacher: Dr. Read
Impression:
Presented with lightheadedness
Paroxysmal to persistent Afib
Intolerance of amiodarone, poor candidate for sotalol, dofetilide, 1C drugs
Chronic Eliquis OAC
s/p PVI 03/29/24
Acute HFrEF, new diagnosis
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
Orthostatic hypotension
CAD
s/p 3 mm Xience to prox LAD and bifurcation PTCA first diagonal and PTCA of OM1 superior and Inferior branches 02/2008
CKD 3/4
Elevated LFTs
DM 2
HTN
Hyperlipidemia
h/o CVA 2013
Echo 04/01/2022: EF 55%, mild cLVH, stage II diastolic dysfunction, mild MAC, mild to moderate MR, mild AI
Echo 03/17/2024: EF 35%, moderate tricuspid regurgitation and elevated pulmonary artery pressures estimated at 55-60 mmHg.
Echo 03/30/2024: Urgent bedside study in the setting of rapid response, EF 40 to 45%, no evidence of pericardial effusion
Plan:
-Patient with rapid response for hypotension and syncope on 03/30/24 and now with ongoing orthostasis.
-Weight as high as 164 lbs on 03/17/24, but patient was diuresed with Lasix 20 mg IV x1 on 03/19/24 and 03/20/24
-Patient has received a total of 3.5 L IVFs this admission as well
-Remains on midodrine 5 mg TID that was started earlier this admission for orthostasis. Consider increasing dose to 10 mg TID
-Hospitalist attending reviewed with endocrinology and they recommend cosyntropin stim test this weekend
-Patient with paroxysmal to persistent Afib on admission. Patient remained in the hospital until a previously scheduled outpatient PVI was performed on 03/29/24
-Tele reviewed by me and patient remains in SR on 04/01/24
-Outpatient dose of Eliquis 2.5 mg BID has been continued
-Digoxin started and stopped this admission. Digoxin level was 1.0 on 03/30/24
-Outpatient dose of Coreg 3.125 mg BID has been continued
-EF up to 40-45% by echo 03/30/24
-GDMT limited by orthostasis
-pro-BNP 8650 on admission, then 86935 on 03/20/24 and down to 7310 on 03/30/24
-Ongoing wheezing and nebs being given intermittently
HPI: Yesenia is an 83 year old female with PMH of paroxysmal atrial fibrillation, CAD w/ prior PCI, improved CM, CKD 4, DM2, HTN, HLD, and prior TIA. She was recently admitted at 03/12 to 03/13 for lightheadedness and rapid afib. She was placed on
higher dose carvedilol 25mg BID and heart rates improved, so she was discharged and followed up with cardiology in the office on 03/14 to discuss ablation. She remained in afib with improved heart rates at that visit and has been arranged for
ablation 04/12/2024. Yesterday she was sitting at the table drinking a soda when she became somewhat unresponsive. She did not pass out or lose pulse, but was staring blankly ahead and dropped the cup that was in her hand. She came to [facility] for
evaluation and was in rapid atrial fibrillation. She notes since being placed on higher dose carvedilol, she has had an increase in her episodes of lightheadedness and notes typically symptoms occur with position change. She was admitted overnight
for observation and follow up. She feels well this AM while resting in bed. HR fairly well controlled on review of telemetry, in the 90s to 100s.
Progress Note - Taxonomy Teacher
Subjective
Date of Service: April 01, 2024
Able to sit up in bed without feeling lightheaded, waiting to work with PT today
Objective
Labs:
04/01/24 03:00
04/01/24 03:00
Labs
Hgb 11.9 g/dL (12.0-16.0) L 04/01/24 03:00
Hct 35.9 % (37.0-47.0) L 04/01/24 03:00
Plt Count 122 10^3/uL (130-400) L 04/01/24 03:00
PT 21.3 Sec (11.4-14.6) H 03/17/24 09:52
INR 1.82 03/17/24 09:52
Sodium 131 mmol/L (135-145) L 04/01/24 03:00
Potassium 4.5 mmol/L (3.5-5.1) 04/01/24 03:00
BUN 52 mg/dl (7-17) H 04/01/24 03:00
Creatinine 1.7 mg/dL (0.6-1.0) H 04/01/24 03:00
Glucose 89 mg/dl (70-99) 04/01/24 03:00
Digoxin 1.0 ng/ml (0.8-2.0) 03/30/24 12:32
Vital Signs and I&O:
Vital Signs
Temp Pulse Resp BP Pulse Ox
97.9 F 58 17 137/60 95
04/01/24 07:24 04/01/24 09:03 04/01/24 09:03 04/01/24 08:40 04/01/24 07:24
Vital Signs
Temp Pulse Resp BP Pulse Ox
97.9 F 58 17 137/60 95
04/01/24 07:24 04/01/24 09:03 04/01/24 09:03 04/01/24 08:40 04/01/24 07:24
Intake & Output
03/30/24 03/31/24 04/01/24 04/02/24
06:59 06:59 06:59 06:59
Intake Total 1200 / 1200 1080 / 1080 360 / 360
Output Total 250 / 250 375 / 375 2650 / 2650
Balance 950 / 950 705 / 705 -2290 / -2290
Physical Exam
Physical Exam
GEN: NAD
HEENT: EOMI
LUNGS: RA
CV: SR on tele
ABD: ND
EXT: B/L tubigrip stockings
NEURO: Gross non-focal
SKIN: No rash.
[2024-04-01] MEDS: NOVOLOG FLEXPEN 5 UNITS SC ×3 (11:28→18:24)
[2024-04-01] MEDS: NOVOLOG FLEXPEN-LOW RESISTANCE SC (11:29)
[2024-04-01] MEDS: DILAUDID 0.25 MG IV (11:29)
[2024-04-01 11:55] LABS: Glucose - Point of Care 184 mg/dl (70-99)
[2024-04-01 12:25] LABS: COVID-19 Antigen Negative (Negative)
--- NOTE | 2024-04-01 12:37 | PTCARENOTE ---
pt continues to be sb on the monitor, vss. pt c/o back pain continuing to be worse. Tylenol tried over night and pt states 'did not work.' notified Eric Suarez md, Dilaudid ordered and given, see MAR. Pt now asleep in bed resting comfortably. call
vasquez within reach.
[2024-04-01 13:16] LABS: NT-proBNP 4030 pg/ml
[2024-04-01 14:09] LABS: Glucose - Point of Care 158 mg/dl (70-99)
[2024-04-01] MEDS: NOVOLOG FLEXPEN-LOW RESISTANCE 1 UNITS SC ×2 (14:09→18:24)
--- NOTE | 2024-04-01 14:10 | W.PN.HOSP.TC ---
Today's Communication/Plan
-
Chest x-ray. IV Lasix. DuMelanieb. Cosyntropin test in a.m.
Assessment / Plan
Assessment / Plan
Physical exam:
General: Acutely ill.
HEENT: Normocephalic, Atraumatic and Moist Mucous Membranes
Respiratory: Bilateral wheezes and some coarse crackles in the bases; Negative Rhonchi
Cardiac: Regular rate and rhythm and S1/S2
GI: Soft, Nontender and Nondistended
Musculoskeletal: No Clubbing, No Cyanosis. No bilateral lower extremity edema
Neuro: Awake, Alert and Oriented, no gross neurological deficit
Psych: Calm
Echocardiogram:
Normal left ventricular size.
Asymmetric septal hypertrophy.
Moderately reduced left ventricular systolic function.
LV ejection fraction is 35% by Christopher's method of discs.
Diastolic function indeterminate due to atrial fibrillation.
Normal right ventricular size.
Reduced right ventricular systolic function.
Trace aortic regurgitation.
Mitral sclerosis without stenosis.
Moderate tricuspid regurgitation.
Estimated pulmonary artery pressure of 55-60 mmHg assuming a right atrial
pressure of 8 mmHg.
The IVC is dilated and does not collapse.
Compared to 2022 echocardiogram Ejection fraction is now moderately reduced and
has dropped from 50-55% to 35%.
A/P:
Syncope:
Multifactorial A-fib related, UTI, orthostatic, rule out adrenal insufficiency.
She had recent admission for A-fib RVR for which beta-gina was increased. Beta-gina decreased. Digoxin was added. Now off beta-gina and digoxin.
Status post ablation on 04/12.
Neurology workup unremarkable and appreciated neurology consult.
Abnormal ultrasound of the abdomen but does not correlate clinically.
Continue cardiac monitoring
Updated family over the phone yesterday
Plan to rehab once medically stable
Orthostatic hypotension
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
Beta-gina has been discontinued
On midodrine 5 mg p.o. 3 times daily
Remains in sinus bradycardia.
Cortisol level somewhat borderline 5.7
Will do cosyntropin stimulation test in a.m. (best done early in the morning)
Discussed with take down sorter last evening.
Shortness of breath and wheezing, suspect acute diastolic CHF:
Obtain chest x-ray and BNP
Normal TSH
Equivocal signs of heart failure so we will continue with bronchodilators but will use Lasix 20 mg IV x 1 today. Monitor blood pressure closely and orthostatic.
Acute back pain:
Likely musculoskeletal
Tylenol and Lidoderm patch and Dilaudid x 1 and Oxy as needed given her underlying CKD.
Persistent atrial fibrillation:
Status post ablation and remains on sinus rhythm
Anticoagulation Eliquis 2.5 mg twice a day
Off rate control agents
Continue cardiac monitoring
Cardiology following
Hyponatremia:
Improving
Sodium 131
Hyperkalemia:
Resolved
K came back down to 4.5 today after Lokelma yesterday
CLL -persistent leukocytosis
No fevers. Did not requite treatments in the past.
UTI:
Finished IV ceftriaxone 1 g daily for 5 days
Cultures grew E. coli
Left ventricular systolic dysfunction:
EF 35% compared to 50 to 55% on last echocardiogram
Suspect related to tachyarrhythmia but deferred to cardiology if she requires further ischemic and nonischemic workup. Cardiology feels is related to tachyarrhythmia.
Monitor volume status closely
GDMT limited due to hypotension and cardiology will reevaluate as outpatient
CKD stage IIIb:
Avoid nephrotoxic
Monitor renal function
CAD:
Chest pain-free
Continue current anti-ischemic regimen
History of s/p 3 mm Xience to prox LAD and bifurcation PTCA first diagonal and PTCA of OM1 superior and Inferior branches 02/2008
Diabetes mellitus type 2:
better controlled.
Continue insulin sliding scale
Hyperlipidemia:
Continue statin
Hypothyroidism:
Continue thyroid replace
History of TIA/CVA:
On Eliquis and statin
DVT prophylaxis:
Eliquis
CODE STATUS:
Full code
Total time spent on today's encounter was 52 minutes which included time spent in counseling the patient/family regarding diagnosis and treatment plan as listed above, goals of care, and symptom management. Case was discussed with nursing staff,
specialists, and care coordinators/case management. All labs and imaging personally reviewed by me. Remainder the time spent in detailed review of previous records, lab data, imaging, and other medical provider documentation.
Anticipated Discharge: > 48 hours
Subjective/Interval History
-
Date of Service: April 01, 2024
Patient feels better today. She is also wheezing. Patient also complains of right thoracic upper back pain. Afebrile. No chest pain
Objective Data
-
Labs:
Laboratory Results
04/01/24
03:00
WBC 12.9 H
Hgb 11.9 L
Hct 35.9 L
Plt Count 122 L
Sodium 131 L
Potassium 4.5
Chloride 99
Carbon Dioxide 24
BUN 52 H
Creatinine 1.7 H
Glucose 89
Calcium 8.5
Vital Signs:
Vital Signs
Temp Pulse Resp BP Pulse Ox
97.8 F 60 16 157/68 96
04/01/24 12:24 04/01/24 12:24 04/01/24 12:24 04/01/24 12:24 04/01/24 12:24
I&O
03/31/24 04/01/24 04/02/24
06:59 06:59 06:59
Intake Total 1080 / 1080 360 / 360
Output Total 375 / 375 2650 / 2650
Balance 705 / 705 -2290 / -2290
[2024-04-01] MEDS: LASIX 20 MG IV (15:32)
[2024-04-01 16:56] LABS: Glucose - Point of Care 176 mg/dl (70-99)
[2024-04-01] MEDS: ROBITUSSIN DM 5 ML PO (20:23)
[2024-04-01] MEDS: ANESTHETIC LOZENGE 1 LOZENGE PO (20:23)
[2024-04-01 21:38] LABS: Glucose - Point of Care 131 mg/dl (70-99)
[2024-04-01] MEDS: CRESTOR 10 MG PO (23:03)
[2024-04-01] MEDS: LANTUS 0.2 UNITS SC (23:03)
--- NOTE | 2024-04-01 23:21 | PTCARENOTE ---
Pt rec'd at beginning of shift in bed. Medicated with Tylenol for 3 out of 10 right mid back pain. AT Hs pain remained in control and pt stated she was comfortable at present. Sinus on telemetry. Ortho VS completed. B/P 141 systolic to 106 systolic
with standing. HT rate unchanged. Pt denied dizziness when standing. Good urine output noted via pure wick. New purewick placed at HS. Coughing consistent at beginning of shift a little quieter at present. Pt with exp wheezing throughout, no rales
noted.
[2024-04-02] VITALS (9 sets, daily range): BP systolic 122–180; BP diastolic 37–69; PULSE 80–82; BMI 24.2
--- NOTE | 2024-04-02 05:51 | PTCARENOTE ---
Pt remains pain free at this time. Sinus on telemetry.
[2024-04-02] MEDS: TYLENOL 650 MG PO (06:52)
[2024-04-02] MEDS: SYNTHROID 75 MCG PO (06:52)
[2024-04-02 07:40] LABS: Glucose - Point of Care 81 mg/dl (70-99)
[2024-04-02 07:40] LABS: Hematocrit 35.8 % (37.0-47.0); Hemoglobin 11.8 g/dL (12.0-16.0); Mean Corpuscular Hgb 29.4 pg (27.0-31.0); Mean Corpuscular Volume 89.3 fL (81.0-99.0); Mean Platelet Volume 11.4 fL (7.4-10.4); Platelet Count 141 10^3/uL (130-400); Red Blood Cell Count 4.01 10^6/uL (4.20-5.40); Red Cell Dist. Width 14.8 % (11.5-14.5); White Blood Cell Count 12.8 10^3/uL (4.8-10.8)
[2024-04-02 07:54] LABS: Blood Urea Nitrogen 43 mg/dl (7-17); Calcium 8.8 mg/dl (8.4-10.2); Carbon Dioxide 30 mmol/L (22-30); Chloride 99 mmol/L (98-107); Estimated Creatinine Clearance 28 ml/min; Glucose 79 mg/dl (70-99); Potassium 4.3 mmol/L (3.5-5.1); Sodium 135 mmol/L (135-145); eGFR 34.36
[2024-04-02] MEDS: DUONEB 3 ML INH ×2 (07:58→12:33)
[2024-04-02 08:24] LABS: ACTH Stim Cortisol 0 Min 22.3 ug/dl
[2024-04-02] MEDS: LIDOCAINE 4% PATCH 2 PATCH TOPICAL (08:24)
[2024-04-02] MEDS: VITAMIN B-12 1000 MCG PO (08:26)
[2024-04-02] MEDS: ELIQUIS 2.5 MG PO ×2 (08:26→21:31)
[2024-04-02] MEDS: MUCINEX 600 MG PO ×2 (08:26→21:31)
[2024-04-02 08:41] LABS: % Basophils 0.3 % (0-2); % Eosinophils 1.7 % (0-6); % Immature Granulocytes 0.4 % (0-0.5); % Lymphocytes 44.5 % (20.5-51.1); % Monocytes 7.6 % (1.7-9.3); % Neutrophils 45.5 % (42.2-75.2); Absolute Eosinophils 0.2 10^3/uL (0-0.7); Absolute Immature Granulocytes 0.1 10^3/uL (0-0.05); Absolute Lymphocytes 5.7 10^3/uL (1.2-3.4); Absolute Neutrophils 5.8 10^3/uL (1.4-6.5); Nucleated Red Blood Cells % 0 %
--- NOTE | 2024-04-02 08:53 | W.PN.HOSP.TC ---
Today's Communication/Plan
-
Cosyntropin test. X-ray of the back.
Assessment / Plan
Assessment / Plan
Physical exam:
General: Mild distress due to pain in the back.
HEENT: Normocephalic, Atraumatic and Moist Mucous Membranes
Respiratory: Some scattered wheezes and crackles but much less than yesterday; Negative Rhonchi
Cardiac: Regular rate and rhythm and S1/S2
GI: Soft, Nontender and Nondistended
Musculoskeletal: Mild tenderness in right lower thoracic area and mild decreased range of motion in the back. No Clubbing, No Cyanosis. No bilateral lower extremity edema
Neuro: Awake, Alert and Oriented, no gross neurological deficit
Psych: Anxious
Echocardiogram:
Normal left ventricular size.
Asymmetric septal hypertrophy.
Moderately reduced left ventricular systolic function.
LV ejection fraction is 35% by Christopher's method of discs.
Diastolic function indeterminate due to atrial fibrillation.
Normal right ventricular size.
Reduced right ventricular systolic function.
Trace aortic regurgitation.
Mitral sclerosis without stenosis.
Moderate tricuspid regurgitation.
Estimated pulmonary artery pressure of 55-60 mmHg assuming a right atrial
pressure of 8 mmHg.
The IVC is dilated and does not collapse.
Compared to 2022 echocardiogram Ejection fraction is now moderately reduced and
has dropped from 50-55% to 35%.
A/P:
Syncope:
Multifactorial A-fib related, UTI, orthostatic, rule out adrenal insufficiency.
She had recent admission for A-fib RVR for which beta-gina was increased. Beta-gina initially decreased. Digoxin initially was added. Now off beta-gina and digoxin.
Status post ablation on 04/12.
Neurology workup unremarkable and appreciated neurology consult.
Abnormal ultrasound of the abdomen but does not correlate clinically.
Continue cardiac monitoring
Updated family over the phone prior
Plan to rehab once medically stable
Orthostatic hypotension
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
Beta-gina has been discontinued due to sinus bradycardia and hypotension.
On midodrine 5 mg p.o. 3 times daily with holding parameters
Remains in sinus rhythm.
Cortisol level somewhat borderline low but nondiagnostic at 5.7
Will do cosyntropin stimulation test today--> awaiting for results
Discussed with bookmaker map on Wednesday (Dr. Samantha Dowling).
Monitor orthostatic
Shortness of breath and wheezing, suspected acute systolic CHF:
Chest x-ray consistent with heart failure yesterday-->Patient responded with good diuresis after IV Lasix 20 mg IV yesterday.
Diuresis as needed moving forward
Acute back pain:
Likely musculoskeletal
Tylenol and Lidoderm patch and Dilaudid x 1 and Oxy as needed given her underlying CKD.
Will obtain x-ray of the thoracic and lumbar spine today
Persistent atrial fibrillation:
Status post ablation and remains on sinus rhythm
Anticoagulation Eliquis 2.5 mg twice a day
Off rate control agents
Continue cardiac monitoring
Cardiology following
Hyponatremia:
Improving
Sodium 135
Hyperkalemia:
Resolved
K 4.3 today
CLL -persistent leukocytosis
No fevers. Did not requite treatments in the past.
UTI:
Finished IV ceftriaxone 1 g daily for 5 days
Cultures grew E. coli
Left ventricular systolic dysfunction:
EF 35% compared to 50 to 55% on last echocardiogram
Suspect related to tachyarrhythmia but deferred to cardiology if she requires further ischemic and nonischemic workup. Cardiology feels is related to tachyarrhythmia.
Monitor volume status closely
GDMT limited due to hypotension and cardiology will reevaluate as outpatient
CKD stage IIIb:
Avoid nephrotoxic
Monitor renal function
CAD:
Chest pain-free
Continue current anti-ischemic regimen
History of s/p 3 mm Xience to prox LAD and bifurcation PTCA first diagonal and PTCA of OM1 superior and Inferior branches 02/2008
Diabetes mellitus type 2:
better controlled.
Continue insulin sliding scale
Hyperlipidemia:
Continue statin
Hypothyroidism:
Continue thyroid replace
History of TIA/CVA:
On Eliquis and statin
DVT prophylaxis:
Eliquis
CODE STATUS:
Full code
Total time spent on today's encounter was 52 minutes which included time spent in counseling the patient/family regarding diagnosis and treatment plan as listed above, goals of care, and symptom management. Case was discussed with nursing staff,
specialists, and care coordinators/case management. All labs and imaging personally reviewed by me. Remainder the time spent in detailed review of previous records, lab data, imaging, and other medical provider documentation.
Anticipated Discharge: 24 - 48 hours
Subjective/Interval History
-
Date of Service: April 02, 2024
Patient still complains of back pain today. Less shortness of breath today. No chest pain. Blood pressure slightly higher today. Afebrile
Objective Data
-
Labs:
Laboratory Results
04/02/24
07:22
WBC 12.8 H
Hgb 11.8 L
Hct 35.8 L
Plt Count 141
Sodium 135
Potassium 4.3
Chloride 99
Carbon Dioxide 30
BUN 43 H
Creatinine 1.5 H
Glucose 79
Calcium 8.8
Vital Signs:
Vital Signs
Temp Pulse Resp BP Pulse Ox
97.4 F 60 17 161/60 94
04/02/24 07:35 04/02/24 08:27 04/02/24 08:00 04/02/24 08:27 04/02/24 08:00
I&O
04/01/24 04/02/24 04/03/24
06:59 06:59 06:59
Intake Total 360 / 360 240 / 240
Output Total 2650 / 2650 3400 / 3400
Balance -2290 / -2290 -3160 / -3160
[2024-04-02] MEDS: CORTROSYN 0.25 MG IV (08:56)
[2024-04-02] MEDS: NSS (PRESERVATIVE FREE) 1 ML IV (08:57)
[2024-04-02] MEDS: ROXICODONE 5 MG PO ×2 (09:07→21:38)
[2024-04-02] MEDS: NOVOLOG FLEXPEN-LOW RESISTANCE SC ×2 (11:01→17:17)
[2024-04-02] MEDS: NOVOLOG FLEXPEN SC ×2 (11:01→17:17)
[2024-04-02] MEDS: ZOFRAN 4 MG IV (11:20)
[2024-04-02 11:21] LABS: ACTH Stim Cortisol 60 Min 49.4 ug/dl
--- NOTE | 2024-04-02 11:34 | W.PN.CARDCBS ---
Today's Communication / Plan
-
Start midodrine
Will use furosemide as needed, none today
May need antihypertensive therapy
Impression / Plan
-
PCP: Susie Jarquin PA-C
Automation Lead: Dr. Read
Impression:
Presented with lightheadedness
Paroxysmal to persistent Afib
Intolerance of amiodarone, poor candidate for sotalol, dofetilide, 1C drugs
Chronic Eliquis OAC
s/p PVI 03/29/24
Acute HFrEF, new diagnosis
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
Orthostatic hypotension
CAD
s/p 3 mm Xience to prox LAD and bifurcation PTCA first diagonal and PTCA of OM1 superior and Inferior branches 02/2008
CKD 3/4
Elevated LFTs
DM 2
HTN
Hyperlipidemia
h/o CVA 2013
Echo 04/01/2022: EF 55%, mild cLVH, stage II diastolic dysfunction, mild MAC, mild to moderate MR, mild AI
Echo 03/17/2024: EF 35%, moderate tricuspid regurgitation and elevated pulmonary artery pressures estimated at 55-60 mmHg.
Echo 03/30/2024: Urgent bedside study in the setting of rapid response, EF 40 to 45%, no evidence of pericardial effusion
Plan:
Overall she gets a little stronger day by day.
Heart failure with modestly reduced EF seems improved after single dose of Lasix. Can consider for an SGLT2 antagonist. For now, will not place on daily Lasix but may reconsider based on blood pressure.
Orthostasis/hypotension seems better. She is not receiving midodrine. Carvedilol has been stopped and she is not on antihypertensive therapy. Will stop midodrine.
Continue apixaban. No evidence of atrial fibrillation following PVI 5 days ago.
If blood pressure trends continue she may need antihypertensive therapy.
Okay to proceed with discharge planning.
Some wheezing at present. Defer to primary service.
HPI: Yesenia is an 83 year old female with PMH of paroxysmal atrial fibrillation, CAD w/ prior PCI, improved CM, CKD 4, DM2, HTN, HLD, and prior TIA. She was recently admitted at 03/12 to 03/13 for lightheadedness and rapid afib. She was placed on
higher dose carvedilol 25mg BID and heart rates improved, so she was discharged and followed up with cardiology in the office on 03/14 to discuss ablation. She remained in afib with improved heart rates at that visit and has been arranged for
ablation 04/12/2024. Yesterday she was sitting at the table drinking a soda when she became somewhat unresponsive. She did not pass out or lose pulse, but was staring blankly ahead and dropped the cup that was in her hand. She came to [facility] for
evaluation and was in rapid atrial fibrillation. She notes since being placed on higher dose carvedilol, she has had an increase in her episodes of lightheadedness and notes typically symptoms occur with position change. She was admitted overnight
for observation and follow up. She feels well this AM while resting in bed. HR fairly well controlled on review of telemetry, in the 90s to 100s.
Progress Note - Automation Lead
Subjective
Date of Service: April 02, 2024:
Major complaint is back pain. She has not been receiving midodrine. Blood pressure has been relatively high, as outpatient only medication was carvedilol for blood pressure and she was on midodrine as an outpatient.
Medications: DuoNebs, apixaban 2.5 twice daily, B12, levothyroxine 75 mcg daily, rosuvastatin 10 mg at bedtime, Lantus insulin, Mucinex 600 every 12, lidocaine patch, midodrine 5 mg 3 times daily
161/60, as low as 106/64, pulse 60, resp rate 17, intake and output -2.7 L, weight is 70.1 kg, down 1.7 kg from yesterday and 3.1 kg from the 14th, some wheezing, regular rate and rhythm, JVD okay, not much edema, abdomen benign
White count 12.8, hemoglobin 11.8 BUN and creatinine are 43 and 1.5, creatinine had been 1.7 now close to baseline BUN had been 52, cosyntropin stim test was negative, proBNP 4030, on 03/20was 11,000 207,310 on the
Chest x-ray yesterday, mild vascular congestion with small effusion on the left
Thoracic and lumbar films show degenerative disc disease but no compression fracture
Objective
Labs:
04/02/24 07:22
04/02/24 07:22
Labs
Hgb 11.8 g/dL (12.0-16.0) L 04/02/24 07:22
Hct 35.8 % (37.0-47.0) L 04/02/24 07:22
Plt Count 141 10^3/uL (130-400) 04/02/24 07:22
PT 21.3 Sec (11.4-14.6) H 03/17/24 09:52
INR 1.82 03/17/24 09:52
Sodium 135 mmol/L (135-145) 04/02/24 07:22
Potassium 4.3 mmol/L (3.5-5.1) 04/02/24 07:22
BUN 43 mg/dl (7-17) H 04/02/24 07:22
Creatinine 1.5 mg/dL (0.6-1.0) H 04/02/24 07:22
Glucose 79 mg/dl (70-99) 04/02/24 07:22
Digoxin 1.0 ng/ml (0.8-2.0) 03/30/24 12:32
Vital Signs and I&O:
Vital Signs
Temp Pulse Resp BP Pulse Ox
36.3 C 60 17 161/60 94
04/02/24 07:35 04/02/24 08:27 04/02/24 08:00 04/02/24 08:27 04/02/24 08:00
Vital Signs
Temp Pulse Resp BP Pulse Ox
36.3 C 60 17 161/60 94
04/02/24 07:35 04/02/24 08:27 04/02/24 08:00 04/02/24 08:27 04/02/24 08:00
Intake & Output
03/31/24 04/01/24 04/02/24 04/03/24
07:59 07:59 07:59 07:59
Intake Total 1080 / 1080 360 / 360 720 / 720
Output Total 375 / 375 2650 / 2650 3400 / 3400
Balance 705 / 705 -2290 / -2290 -2680 / -2680
Physical Exam
Physical Exam
See above
[2024-04-02 15:09] LABS: Glucose - Point of Care 167 mg/dl (70-99)
[2024-04-02] MEDS: NOVOLOG FLEXPEN 5 UNITS SC (17:17)
[2024-04-02] MEDS: NOVOLOG FLEXPEN-LOW RESISTANCE 1 UNITS SC (17:17)
--- NOTE | 2024-04-02 20:20 | PTCARENOTE ---
Assumed care of pt from prev nsg shift, Pt AAOx3 w/no c/o CP or SOB at rest. Pt is dyspneic on exertion w/SpO2 92-93% on RA. Pt's VSS w/HR in the 60's-70's & BP 151/69 this evening. Pt is SR on telemetry monitoring. Pt w/call vasquez within reach &
plan of care ongoing.
[2024-04-02] MEDS: CRESTOR 10 MG PO (21:31)
[2024-04-02 21:32] LABS: Glucose - Point of Care 333 mg/dl (70-99)
[2024-04-02] MEDS: LANTUS 0.2 UNITS SC (21:32)
[2024-04-03] VITALS (15 sets, daily range): BP systolic 103–142; BP diastolic 51–106; PULSE 55–66; BMI 24.0
[2024-04-03] MEDS: SYNTHROID 75 MCG PO (06:25)
[2024-04-03 06:47] LABS: Hematocrit 34.3 % (37.0-47.0); Hemoglobin 11.4 g/dL (12.0-16.0); Mean Corp Hgb Conc. 33.2 g/dL (33.0-37.0); Mean Corpuscular Hgb 29.9 pg (27.0-31.0); Mean Platelet Volume 11.5 fL (7.4-10.4); Platelet Count 144 10^3/uL (130-400); Red Blood Cell Count 3.81 10^6/uL (4.20-5.40); Red Cell Dist. Width 14.6 % (11.5-14.5); White Blood Cell Count 12.1 10^3/uL (4.8-10.8)
[2024-04-03 06:58] LABS: Blood Urea Nitrogen 39 mg/dl (7-17); Calcium 8.4 mg/dl (8.4-10.2); Carbon Dioxide 32 mmol/L (22-30); Chloride 97 mmol/L (98-107); Estimated Creatinine Clearance 26 ml/min; Glucose 184 mg/dl (70-99); Potassium 4.4 mmol/L (3.5-5.1); Sodium 134 mmol/L (135-145)
--- NOTE | 2024-04-03 07:40 | W.PN.CARDCBS ---
Addendum entered and electronically signed by Ramy Kinney DO 04/03/24 12:07:
I saw and examined the patient.
The Collar Trimmer's note was reviewed and I agree with the note.
Comment:
Plan:
Resume Coreg outpt dose
Remains in Sinus
Cont Eliquis.
Stable cv status, bp and HR well controlled
Stable for rehab
Please recall if needed.
Original Note:
Today's Communication / Plan
-
Might restart Coreg 3.125 mg BID today
Added IS
Might have a rehab bed today and she would be agreeable to go
Impression / Plan
-
PCP: Susie Jarquin PA-C
Gas Station Manager: Dr. Read
Impression:
Presented with lightheadedness 03/16/24
Recent admission for Afib with RVR 03/12/24 until 03/13/24
Paroxysmal to persistent Afib
Intolerance of amiodarone, poor candidate for sotalol, dofetilide, 1C drugs
Chronic Eliquis OAC
s/p PVI 03/29/24
Acute HFrEF, new diagnosis
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
EF improved to 40-45% by echo 03/30/24
Orthostatic hypotension
CAD
s/p 3 mm Xience to prox LAD and bifurcation PTCA first diagonal and PTCA of OM1 superior and Inferior branches 02/2008
CKD 3b
Elevated LFTs
DM 2
HTN
Hyperlipidemia
h/o CVA 2013
Echo 04/01/2022: EF 55%, mild cLVH, stage II diastolic dysfunction, mild MAC, mild to moderate MR, mild AI
Echo 03/17/2024: EF 35%, moderate tricuspid regurgitation and elevated pulmonary artery pressures estimated at 55-60 mmHg.
Echo 03/30/2024: Urgent bedside study in the setting of rapid response, EF 40 to 45%, no evidence of pericardial effusion
Plan:
-Midodrine stopped 04/02/24 and now with intermittent HTN. Midodrine was started earlier this admission for orthostasis and hypotension. Then, patient with rapid response for hypotension and syncope on 03/30/24 and was given a 500 ml IVF bolus.
-Weight as high as 164 lbs on 03/17/24, but patient was diuresed with Lasix 20 mg IV x1 on 03/19/24, 03/20/24 and 04/01/24. Weight is down to 153 lbs on 04/03/24
-Ongoing cough, will add IS
-Cosyntropin stim test pending as far as I can tell
-Patient with paroxysmal to persistent Afib on admission. Patient remained in the hospital until a previously scheduled outpatient PVI was performed on 03/29/24
-Tele reviewed by me and patient remains in SR on 04/01/24
-Outpatient dose of Eliquis 2.5 mg BID has been continued
-Digoxin started and stopped this admission. Digoxin level was 1.0 on 03/30/24
-Outpatient dose of Coreg 3.125 mg BID was stopped due to hypotension, but BP seems improved and trending towards HTN as of 04/03/24. Consider restarting Coreg 3.125 mg BID
-EF up to 40-45% by echo 03/30/24
-GDMT previously limited by orthostasis
-Waiting to hear if [facility] or [facility] can offer a rehab bed 04/03/24. 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
HPI: Yesenia is an 83 year old female with PMH of paroxysmal atrial fibrillation, CAD w/ prior PCI, improved CM, CKD 4, DM2, HTN, HLD, and prior TIA. She was recently admitted at 03/12 to 03/13 for lightheadedness and rapid afib. She was placed on
higher dose carvedilol 25mg BID and heart rates improved, so she was discharged and followed up with cardiology in the office on 03/14 to discuss ablation. She remained in afib with improved heart rates at that visit and has been arranged for
ablation 04/12/2024. Yesterday she was sitting at the table drinking a soda when she became somewhat unresponsive. She did not pass out or lose pulse, but was staring blankly ahead and dropped the cup that was in her hand. She came to [facility] for
evaluation and was in rapid atrial fibrillation. She notes since being placed on higher dose carvedilol, she has had an increase in her episodes of lightheadedness and notes typically symptoms occur with position change. She was admitted overnight
for observation and follow up. She feels well this AM while resting in bed. HR fairly well controlled on review of telemetry, in the 90s to 100s.
Progress Note - Gas Station Manager
Subjective
Date of Service: April 03, 2024
She feels ready to go to rehab if they have a bed, no palpitations
Objective
Labs:
04/03/24 06:19
04/03/24 06:19
Labs
Hgb 11.4 g/dL (12.0-16.0) L 04/03/24 06:19
Hct 34.3 % (37.0-47.0) L 04/03/24 06:19
Plt Count 144 10^3/uL (130-400) 04/03/24 06:19
PT 21.3 Sec (11.4-14.6) H 03/17/24 09:52
INR 1.82 03/17/24 09:52
Sodium 134 mmol/L (135-145) L 04/03/24 06:19
Potassium 4.4 mmol/L (3.5-5.1) 04/03/24 06:19
BUN 39 mg/dl (7-17) H 04/03/24 06:19
Creatinine 1.6 mg/dL (0.6-1.0) H 04/03/24 06:19
Glucose 184 mg/dl (70-99) H 04/03/24 06:19
Digoxin 1.0 ng/ml (0.8-2.0) 03/30/24 12:32
Vital Signs and I&O:
Vital Signs
Temp Pulse Resp BP Pulse Ox
97.7 F 56 18 118/106 99
04/03/24 06:09 04/03/24 06:09 04/03/24 06:09 04/03/24 06:09 04/03/24 06:09
Vital Signs
Temp Pulse Resp BP Pulse Ox
97.7 F 56 18 118/106 99
04/03/24 06:09 04/03/24 06:09 04/03/24 06:09 04/03/24 06:09 04/03/24 06:09
Intake & Output
04/01/24 04/02/24 04/03/24 04/04/24
06:59 06:59 06:59 06:59
Intake Total 360 / 360 240 / 240 1200 / 1200
Output Total 2650 / 2650 3400 / 3400 1550 / 1550
Balance -2290 / -2290 -3160 / -3160 -350 / -350
Physical Exam
Physical Exam
GEN: NAD
HEENT: EOMI
LUNGS: RA
CV: SR on tele
ABD: ND
EXT: B/L tubigrip stockings
NEURO: Gross non-focal
SKIN: No rash.
[2024-04-03 07:52] LABS: Glucose - Point of Care 174 mg/dl (70-99)
[2024-04-03 08:09] LABS: % Basophils 0.3 % (0-2); % Eosinophils 1.4 % (0-6); % Immature Granulocytes 0.3 % (0-0.5); % Monocytes 6.4 % (1.7-9.3); % Neutrophils 42.6 % (42.2-75.2); Absolute Eosinophils 0.2 10^3/uL (0-0.7); Absolute Lymphocytes 5.9 10^3/uL (1.2-3.4); Absolute Monocytes 0.8 10^3/uL (0.1-0.6); Absolute Neutrophils 5.1 10^3/uL (1.4-6.5); Nucleated Red Blood Cells % 0 %
--- NOTE | 2024-04-03 08:52 | W.PN.HOSP.TC ---
Today's Communication/Plan
-
dc to SNF
Assessment / Plan
Assessment / Plan
Physical exam:
General: not in distress.
HEENT: Normocephalic, Atraumatic and Moist Mucous Membranes
Respiratory: Negative Rhonchi
Cardiac: Regular rate and rhythm and S1/S2
GI: Soft, Nontender and Nondistended
Musculoskeletal: No Clubbing, No Cyanosis. No bilateral lower extremity edema
Neuro: Awake, Alert and Oriented, no gross neurological deficit
Psych: Anxious
Echocardiogram:
Normal left ventricular size.
Asymmetric septal hypertrophy.
Moderately reduced left ventricular systolic function.
LV ejection fraction is 35% by Christopher's method of discs.
Diastolic function indeterminate due to atrial fibrillation.
Normal right ventricular size.
Reduced right ventricular systolic function.
Trace aortic regurgitation.
Mitral sclerosis without stenosis.
Moderate tricuspid regurgitation.
Estimated pulmonary artery pressure of 55-60 mmHg assuming a right atrial
pressure of 8 mmHg.
The IVC is dilated and does not collapse.
Compared to 2022 echocardiogram Ejection fraction is now moderately reduced and
has dropped from 50-55% to 35%.
A/P:
Syncope:
Multifactorial A-fib related, UTI, orthostatic, rule out adrenal insufficiency.
She had recent admission for A-fib RVR for which beta-gina was increased. Beta-gina initially decreased. Digoxin initially was added. Now off beta-gina and digoxin.
Status post ablation on 04/12.
Neurology workup unremarkable and appreciated neurology consult.
Abnormal ultrasound of the abdomen but does not correlate clinically.
Continue cardiac monitoring
Updated family over the phone prior
Plan to rehab once medically stable
Orthostatic hypotension
Patient had [employer] a few days ago for hypotension and received fluids and follow-up echocardiogram unremarkable.
Beta-gina has been discontinued due to sinus bradycardia and hypotension.
On midodrine 5 mg p.o. 3 times daily with holding parameters
Remains in sinus rhythm.
Cortisol level somewhat borderline, nondiagnostic at 5.7
s/p cosyntropin stimulation test, unremarkable
Discussed with associate pathologist on Wednesday (Dr. Samantha Dowling).
Monitored orthostatic
Shortness of breath and wheezing, suspected acute systolic CHF:
Chest x-ray consistent with heart failure yesterday-->Patient responded with good diuresis after IV Lasix 20 mg IV yesterday.
Diuresis as needed moving forward
Acute back pain:
Likely musculoskeletal
Tylenol and Lidoderm patch and Dilaudid x 1 and Oxy as needed given her underlying CKD.
X ray Advanced degenerative disc disease at L3-4 and L4-5 has slightly since prior. No compression deformity. Multilevel mild degenerative disc space narrowing throughout the thoracic spine. Subtle S-shaped curvature. No radiographically
demonstrable osteolytic or blastic process.
Persistent atrial fibrillation:
Status post ablation and remains on sinus rhythm
Anticoagulation Eliquis 2.5 mg twice a day
Off rate control agents
d/w cardiology, recommend rehab
Hyponatremia:
Improving
Sodium 134
Hyperkalemia:
Resolved
CLL -persistent leukocytosis
No fevers. Did not requite treatments in the past.
UTI:
Finished IV ceftriaxone 1 g daily for 5 days
Cultures grew E. coli
Left ventricular systolic dysfunction:
EF 35% compared to 50 to 55% on last echocardiogram
Suspect related to tachyarrhythmia but deferred to cardiology if she requires further ischemic and nonischemic workup. Cardiology feels is related to tachyarrhythmia.
Monitored volume status closely
GDMT limited due to hypotension.
CKD stage IIIb:
Avoid nephrotoxic
Monitored renal function
CAD:
Chest pain-free
Continue current anti-ischemic regimen
History of s/p 3 mm Xience to prox LAD and bifurcation PTCA first diagonal and PTCA of OM1 superior and Inferior branches 02/2008
Diabetes mellitus type 2:
better controlled.
Continue insulin sliding scale
Hyperlipidemia:
Continue statin
Hypothyroidism:
Continue thyroid replace
History of TIA/CVA:
On Eliquis and statin
DVT prophylaxis:
Eliquis
CODE STATUS:
Full code
Total discharge time spent on today's encounter was 65 minutes which included time spent in counseling the patient/family regarding diagnosis and treatment plan as listed above, goals of care, and symptom management. Case was discussed with nursing
staff, specialists, and care coordinators/case management. All labs and imaging personally reviewed by me. Remainder the time spent in detailed review of previous records, lab data, imaging, and other medical provider documentation.
Anticipated Discharge: Today
Subjective/Interval History
-
Date of Service: April 03, 2024
No chest pain
No sob
Objective Data
-
Labs:
Laboratory Results
04/03/24
06:19
WBC 12.1 H
Hgb 11.4 L
Hct 34.3 L
Plt Count 144
Sodium 134 L
Potassium 4.4
Chloride 97 L
Carbon Dioxide 32 H
BUN 39 H
Creatinine 1.6 H
Glucose 184 H
Calcium 8.4
Vital Signs:
Vital Signs
Temp Pulse Resp BP Pulse Ox
97.7 F 58 18 118/106 97
04/03/24 08:04 04/03/24 08:04 04/03/24 08:04 04/03/24 06:09 04/03/24 08:04
I&O
04/02/24 04/03/24 04/04/24
06:59 06:59 06:59
Intake Total 240 / 240 1200 / 1200
Output Total 3400 / 3400 1550 / 1550
Balance -3160 / -3160 -350 / -350
[2024-04-03] MEDS: NOVOLOG FLEXPEN 10 UNITS SC ×2 (08:59→11:58)
[2024-04-03] MEDS: NOVOLOG FLEXPEN-LOW RESISTANCE 1 UNITS SC (08:59)
[2024-04-03] MEDS: VITAMIN B-12 1000 MCG PO (09:02)
[2024-04-03] MEDS: LIDOCAINE 4% PATCH 2 PATCH TOPICAL (09:02)
[2024-04-03] MEDS: MUCINEX 600 MG PO ×2 (09:02→21:03)
[2024-04-03] MEDS: ELIQUIS 2.5 MG PO ×2 (09:02→21:03)
[2024-04-03 11:45] LABS: Glucose - Point of Care 146 mg/dl (70-99)
[2024-04-03] MEDS: COREG 3.125 MG PO ×2 (11:58→21:03)
[2024-04-03] MEDS: NOVOLOG FLEXPEN-LOW RESISTANCE SC ×2 (11:58→18:00)
[2024-04-03 16:40] LABS: Glucose - Point of Care 84 mg/dl (70-99)
--- NOTE | 2024-04-03 17:48 | CM ---
spoke with pt and daughter, she has a bed avail at [facility] tomorrow, they are both agreeable. cm to call in am. daughter was undecided if she would drive her to [employer] van to take her. cm to call margaret in am
[2024-04-03] MEDS: NOVOLOG FLEXPEN SC (18:00)
--- NOTE | 2024-04-03 19:09 | PTCARENOTE ---
pt continues to be sb on the monitor, hr in the 50s, vss. pt offers no complaints at this time. pt educated on plan of care and pt verbalized understanding. call vasquez within reach.
[2024-04-03] MEDS: ROBITUSSIN DM 5 ML PO (21:02)
[2024-04-03] MEDS: CRESTOR 10 MG PO (21:03)
[2024-04-03] MEDS: FLEXERIL 2.5 MG PO (21:04)
[2024-04-03 21:12] LABS: Glucose - Point of Care 150 mg/dl (70-99)
[2024-04-03] MEDS: LANTUS 0.2 UNITS SC (21:15)
[2024-04-03] MEDS: ROXICODONE 5 MG PO (23:45)
[2024-04-04] VITALS (8 sets, daily range): BP systolic 108–159; BP diastolic 43–81; PULSE 56–59; BMI 20.5
--- NOTE | 2024-04-04 03:47 | PTCARENOTE ---
Assumed care of the pt @ 1900. Pt AAOx3 c/o chronic back pain see APR. SB on the monitor VSS. Persistent NPC cough +SUERO lungs crackles with slight exp wheeze. Purewick in place draining yellow urine. Pt updated on Plan of Care verbalized
understanding. Call vasquez within reach.
[2024-04-04] MEDS: SYNTHROID 75 MCG PO (06:07)
--- NOTE | 2024-04-04 06:21 | W.PN.HOSP.TC ---
Today's Communication/Plan
-
dc
Assessment / Plan
Assessment / Plan
Physical exam:
General: not in distress.
HEENT: Normocephalic, Atraumatic and Moist Mucous Membranes
Respiratory: Negative Rhonchi
Cardiac: Regular rate and rhythm and S1/S2
GI: Soft, Nontender and Nondistended
Musculoskeletal: No Clubbing, No Cyanosis. No bilateral lower extremity edema
Neuro: Awake, Alert and Oriented, no gross neurological deficit
Psych: Anxious
Echocardiogram:
Normal left ventricular size.
Asymmetric septal hypertrophy.
Moderately reduced left ventricular systolic function.
LV ejection fraction is 35% by Christopher's method of discs.
Diastolic function indeterminate due to atrial fibrillation.
Normal right ventricular size.
Reduced right ventricular systolic function.
Trace aortic regurgitation.
Mitral sclerosis without stenosis.
Moderate tricuspid regurgitation.
Estimated pulmonary artery pressure of 55-60 mmHg assuming a right atrial
pressure of 8 mmHg.
The IVC is dilated and does not collapse.
Compared to 2022 echocardiogram Ejection fraction is now moderately reduced and
has dropped from 50-55% to 35%.
A/P:
Syncope:
Multifactorial A-fib related, UTI, orthostatic, rule out adrenal insufficiency.
She had recent admission for A-fib RVR for which beta-gina was increased. Beta-gina initially decreased. Digoxin initially was added. Now off beta-gina and digoxin.
Status post ablation on 04/12.
Neurology workup unremarkable and appreciated neurology consult.
s/p cardiac monitoring
Updated family over the phone 04/03 and answered questions about discharge.
Plan to rehab discharge
Orthostatic hypotension
Patient had [employer] a few days ago for hypotension and received fluids and follow-up echocardiogram unremarkable.
Beta-gina has been adjusted to Coreg 3.125 BID.
Off midodrine
Remains in sinus rhythm.
Cortisol level somewhat borderline, nondiagnostic at 5.7
s/p cosyntropin stimulation test, unremarkable
Discussed with display specialist on Wednesday (Dr. Samantha Dowling).
Not dizzy, will benefit from rehab
Shortness of breath and wheezing, suspected acute systolic CHF:
Chest x-ray consistent with heart failure yesterday-->Patient responded with good diuresis after IV Lasix
Diuresis as needed moving forward
Acute back pain:
Likely musculoskeletal
Tylenol and Lidoderm patch and Dilaudid x 1 and Oxy as needed given her underlying CKD. Flexeril low dose 2.5 mg HS ( daughters aware and agreed).
X ray Advanced degenerative disc disease at L3-4 and L4-5 has slightly since prior. No compression deformity. Multilevel mild degenerative disc space narrowing throughout the thoracic spine. Subtle S-shaped curvature. No radiographically
demonstrable osteolytic or blastic process.
Persistent atrial fibrillation:
Status post ablation and remains on sinus rhythm
Anticoagulation Eliquis 2.5 mg twice a day
Digoxin started and stopped this admission. Digoxin level was 1.0 on 03/30/24
Off rate control agents
d/w cardiology, recommend rehab
Hyponatremia:
Improving
Hyperkalemia:
Resolved
CLL -persistent leukocytosis
No fevers. Did not requite treatments in the past.
UTI:
Finished IV ceftriaxone 1 g daily for 5 days
Cultures grew E. coli
Left ventricular systolic dysfunction:
EF 35% compared to 50 to 55% on last echocardiogram
Suspect related to tachyarrhythmia but deferred to cardiology if she requires further ischemic and nonischemic workup. Cardiology feels is related to tachyarrhythmia.
Monitored volume status closely
GDMT limited due to hypotension.
CKD stage IIIb:
Avoid nephrotoxic
Monitored renal function
CAD:
Chest pain-free
Continue current anti-ischemic regimen
History of s/p 3 mm Xience to prox LAD and bifurcation PTCA first diagonal and PTCA of OM1 superior and Inferior branches 02/2008
Diabetes mellitus type 2:
better controlled.
Continue insulin sliding scale
Hyperlipidemia:
Continue statin
Hypothyroidism:
Continue thyroid replace
History of TIA/CVA:
On Eliquis and statin
DVT prophylaxis:
Eliquis
CODE STATUS:
Full code
Total discharge time spent on today's encounter was 65 minutes which included time spent in counseling the patient/family regarding diagnosis and treatment plan as listed above, goals of care, and symptom management. Case was discussed with nursing
staff, specialists, and care coordinators/case management. All labs and imaging personally reviewed by me. Remainder the time spent in detailed review of previous records, lab data, imaging, and other medical provider documentation.
Anticipated Discharge: Today
Subjective/Interval History
-
Date of Service: April 04, 2024
No chest pain
No sob
Objective Data
-
Vital Signs:
Vital Signs
Temp Pulse Resp BP Pulse Ox
98.5 F 58 14 135/66 96
04/03/24 23:06 04/03/24 23:07 04/03/24 23:06 04/03/24 23:07 04/03/24 23:06
I&O
04/02/24 04/03/24 04/04/24
06:59 06:59 06:59
Intake Total 240 / 240 1200 / 1200 480 / 480
Output Total 3400 / 3400 1550 / 1550 650 / 650
Balance -3160 / -3160 -350 / -350 -170 / -170
[2024-04-04 08:20] LABS: Glucose - Point of Care 123 mg/dl (70-99)
[2024-04-04] MEDS: NOVOLOG FLEXPEN 10 UNITS SC (08:24)
[2024-04-04] MEDS: NOVOLOG FLEXPEN-LOW RESISTANCE SC ×2 (08:24→13:00)
[2024-04-04] MEDS: MUCINEX 600 MG PO (08:27)
[2024-04-04] MEDS: VITAMIN B-12 1000 MCG PO (08:27)
[2024-04-04] MEDS: ELIQUIS 2.5 MG PO (08:27)
[2024-04-04] MEDS: COREG 3.125 MG PO (08:27)
[2024-04-04] MEDS: TYLENOL 650 MG PO (11:10)
--- NOTE | 2024-04-04 11:21 | W.DCSUMMARY ---
Discharge Summary
Discharge Data
Date of Admission: 03/16/24
Date of Discharge: 04/04/24
-
Pending Results: No
Hospital Course
83 years old female who was admitted for symptomatic atrial fibrillation with postural hypotension to the hospital. Patient was evaluated by mixed crop and livestock farmer. She was started on antiarrhythmic medications including digoxin. She was maintained on
systemic anticoagulation with Eliquis. Her heart rate stabilized. She was able to tolerate her oral medication. She was noted to have symptomatic orthostatic hypotension. [employer] adjusted her medication including diuretic therapy.
CHADSVASc: 7, she tolerated Eliquis treatment with no gastrointestinal bleeding. Echocardiogram on 03/30/24 showed left ventricular EF 40-45% , mild LVH, stage II diastolic dysfunction, mild to moderate mitral regurgitation with mild aortic
insufficiency. Compared to prior study dated 03/17/2024, EF has improved, previously 35%. Patient did not feel well enough to go home and wanted to stay in the hospital until ablation. Patient underwent successful mapping and ablation procedure on
03/29. Digoxin was discontinued. Carvedilol dose was adjusted to accommodate blood pressure without causing hypotension. Patient remained in sinus rhythm. Patient complained of lower back pain and was felt to be musculoskeletal. Imaging studies
showed degenerative disc disease. Patient was given Lidoderm patch with Tylenol and as needed oxycodone with low-dose Flexeril at nighttime. Cortisol level was nondiagnostic. Cosyntropin stimulation test was unremarkable. Blood glucose was
fluctuating and she was given insulin with close monitoring of the doses to avoid hypoglycemia. Patient remained hemodynamically stable. She was evaluated by physical therapy recommended home health or residential facility. executive manager was
consulted. Family preferred residential facility. Patient was discharged in a stable condition.
Discharge Plan
-
Patient Disposition: [facility]SNF
Discharge Diagnosis/Procedures: Atrial fibrillation post ablation.
Low back pain
Diabetes, Acu-checks AC & HS
Diet: Low Cholesterol and Diabetic, Carb Controlled
Driving Restrictions: No driving for 24 hours
Blood Work: Please PCP to order CBC, BMP within 1 week
Specialty Instructions: Weigh Daily- Call MD for wt gain/loss 3 lbs overnight/5 lbs in 1 week
Activity Restrictions/Additional Instructions:
Stand Alone Forms: DC Instructions- Cath/EP Lab
Referrals:
[facility] [Outside] (FAX [phone])
Susie Jarquin PA-C [Family Provider] - in one to two weeks
Ada Acevedo PA-C [Specified Professional Personl] - 04/26/24 3:00 pm (You have a cardiology follow-up appointment at the [place] office with Dr. Read's physician data assistant, Ada. Please call with questions)
Prescriptions:
New
carvedilol 3.125 mg Tablet
3.125 mg PO BID 30 Days Qty: 60 0RF
cyclobenzaprine 10 mg Tablet
2.5 mg PO HS Qty: 10 0RF
lidocaine 4 % Adhesive Patch,Medicated
2 patch topical DAILY Qty: 30 0RF
carvedilol 3.125 mg Tablet
3.125 mg PO BID Qty: 60 0RF
polyethylene glycol 3350 17 gram Powder In Packet
17 g PO DAILYPRN PRN (Reason: constipation) Qty: 14 0RF
sennosides-docusate sodium 8.6-50 mg Tablet
2 tab-cap PO BIDPRN PRN (Reason: constipation) Qty: 10 0RF
oxycodone 5 mg Tablet
5 mg PO Q6HPRN PRN (Reason: severe pain) Qty: 10 0RF
acetaminophen 325 mg Tablet
650 mg PO Q4HPRN PRN (Reason: mild pain/RAMIREZ/temp> 100.4F) Qty: 20 0RF
Continued
cyanocobalamin (vitamin B-12) 1,000 MCG tablet
1,000 mcg PO DAILY
ascorbic acid (vitamin C) 250 MG tablet
250 mg PO DAILY
rosuvastatin 10 MG tablet
10 mg PO HS
cholecalciferol (vitamin D3) 1,000 UNITS tablet
25 mcg PO Q OTHER DAY
levothyroxine 75 mcg Tablet
75 mcg PO DAILY
Eliquis 2.5 mg tablet
2.5 mg PO BID
Changed
insulin aspart U-100 [Novolog FlexPen U-100 Insulin] 100 unit/mL (3 mL) insulin pen
10 unit SC AC Qty: 0 0RF
insulin glargine [Lantus Solostar U-100 Insulin] 100 unit/mL (3 mL) insulin pen
20 unit SC HS Qty: 0 0RF
Discontinued
lidocaine [Salonpas (lidocaine)] 4 % Adhesive Patch,Medicated
1 patch TOPICAL DAILYPRN PRN (Reason: neck pain)
acetaminophen 650 mg Tablet Extended Release
1,300 mg PO DAILYPRN PRN (Reason: mild pain)
carvedilol 12.5 mg Tablet
25 mg PO BID 30 Days Qty: 120 0RF
Discharge Orders:
Discharge Patient (As Directed); Ordered 04/04/24
Ordered By: Martir Wei
Care Plan Goals
Care Plan Goals:
Problem: Readiness for enhanced knowledge related to diagnosis and treatment plan
Goal: Understand your diagnosis and treatment plan needs, including medications if applicable.
Instructions: Know your diagnosis, underlying causes and treatment plan options, including medications if applicable. Consult with your health care team to learn about your diagnosis and treatment plan, including medications if applicable.
Discharge Date and Time
Discharge Date/Time: 04/04/24 15:54
Print Language: KHMER
--- NOTE | 2024-04-04 11:43 | CM ---
Chart reviewed. Patient set up for a 4pm pickup with [facility]. Patient's daughter to call in payment. [facility] requesting Covid test. Plan is for the patient to go to [facility] with [facility]
[2024-04-04 12:02] LABS: Glucose - Point of Care 61 mg/dl (70-99)
[2024-04-04 12:11] LABS: COVID-19 Antigen Negative (Negative)
[2024-04-04 12:19] LABS: Glucose - Point of Care 59 mg/dl (70-99)
[2024-04-04 12:39] LABS: Glucose - Point of Care 66 mg/dl (70-99)
[2024-04-04] MEDS: NOVOLOG FLEXPEN SC (12:59)
[2024-04-04 13:01] LABS: Glucose - Point of Care 78 mg/dl (70-99)
--- NOTE | 2024-04-04 13:05 | PTCARENOTE ---
Pt's blood glucose by accucheck was 61. Hypyglycemic protocol followed. Blood glucose now 78 after lunch and 24 oz of orange juice. Will monitor.
[2024-04-04 15:00] LABS: Glucose - Point of Care 196 mg/dl (70-99)
[2024-04-04] MEDS: LIDOCAINE 4% PATCH TOPICAL (15:30)
== END 2024-04-04 15:54 | DRG 273 ==
LOC: IVU 10:18
PROVIDERS: Hospitalist; Internal Medicine Cardiovascular Disease; Nurse Practitioner Adult Health; Nurse Practitioner Family; Physician Assistant; Physician Assistant Medical; ADMITTING PHYSICIAN Internal Medicine; ATTENDING PHYSICIAN Internal Medicine; CONSULT PHYSICIAN Internal Medicine Cardiovascular Disease; CONSULT PHYSICIAN Psychiatry & Neurology Neurology; EMERGENCY PHYSICIAN Student in an Organized Health Care Education/Training Program; FAMILY PHYSICIAN Student in an Organized Health Care Education/Training Program
PROC: 5A2204Z Restoration of Cardiac Rhythm, Single (ICD-10-PCS; 2024-03-29)
PROC: 02583ZZ Destruction of Conduction Mechanism, Percutaneous Approach (ICD-10-PCS; 2024-03-29)
PROC: 02K83ZZ Map Conduction Mechanism, Percutaneous Approach (ICD-10-PCS; 2024-03-29)
DX: I48.19 Other persistent atrial fibrillation (principal); I50.21 Acute systolic (congestive) heart failure; E87.1 Hypo-osmolality and hyponatremia; N39.0 Urinary tract infection, site not specified; I48.0 Paroxysmal atrial fibrillation; I95.1 Orthostatic hypotension; E11.65 Type 2 diabetes mellitus with hyperglycemia; E78.00 Pure hypercholesterolemia, unspecified; E86.0 Dehydration; I08.0 Rheumatic disorders of both mitral and aortic valves; I25.10 Atherosclerotic heart disease of native coronary artery without angina pectoris; E03.9 Hypothyroidism, unspecified; E11.22 Type 2 diabetes mellitus with diabetic chronic kidney disease; I12.9 Hypertensive chronic kidney disease with stage 1 through stage 4 chronic kidney disease, or unspecified chronic kidney disease; L89.321 Pressure ulcer of left buttock, stage 1; L89.312 Pressure ulcer of right buttock, stage 2; B96.20 Unspecified Escherichia coli [E. coli] as the cause of diseases classified elsewhere; I42.8 Other cardiomyopathies; N18.32 Chronic kidney disease, stage 3b; D72.829 Elevated white blood cell count, unspecified; Z86.73 Personal history of transient ischemic attack (TIA), and cerebral infarction without residual deficits; Z79.84 Long term (current) use of oral hypoglycemic drugs; Z79.890 Hormone replacement therapy; Z79.01 Long term (current) use of anticoagulants; Z79.899 Other long term (current) drug therapy; Z82.49 Family history of ischemic heart disease and other diseases of the circulatory system; Z95.5 Presence of coronary angioplasty implant and graft; Z11.52 Encounter for screening for COVID-19
CPT/HCPCS: 93308; 70450; 70553; 71045; 71046; 72072; 72100; 76700; 76937; 80048; 80053; 80069; 80076; 80162; 81003; 81015; 82533; 82962; 83605; 83735; 83880; 83935; 84145; 84300; 84443; 85025; 85027; 85347; 85610; 85652; 86140; 86850; 86900; 86901; 87077; 87086; 87186; 87502; 87811; 93005; 93306; 93321; 93325; 93656; 93657; 93880; 94640; 96361; 96374; 97110; 97116; 97162; 97166; 97530; 97535; 99285; A9575; C1730; C1732; C1733; C1766; C1892; C1894; J1160

== ENCOUNTER → 2024-06-05 13:49 | Outpatient (REF) | payer MEDICARE, BC, SELFPAY | LOC: HWRCS 13:49 | PROVIDERS: ATTENDING PHYSICIAN Physician Assistant; FAMILY PHYSICIAN Student in an Organized Health Care Education/Training Program | DX: I48.0 Paroxysmal atrial fibrillation (principal); I25.5 Ischemic cardiomyopathy | CPT/HCPCS: 93306 ==

== ENCOUNTER 2024-09-01 23:32 | Inpatient (IN) | payer MEDICARE, BC, SELFPAY ==
[2024-09-01] VITALS (7 sets, daily range): BP systolic 164–223; BP diastolic 57–81; BMI 23.9
[2024-09-01 17:14] LABS: Hematocrit 40.7 % (37.0-47.0); Hemoglobin 13.2 g/dL (12.0-16.0); Mean Corp Hgb Conc. 32.4 g/dL (33.0-37.0); Mean Corpuscular Volume 90.0 fL (81.0-99.0); Platelet Count 153 10^3/uL (130-400); Red Cell Dist. Width 14.6 % (11.5-14.5)
[2024-09-01 17:26] LABS: ALT (SGPT) 15 U/L (0-35); AST (SGOT) 20 U/L (14-36); Albumin 4.2 g/dl (3.5-5.0); Alkaline Phosphatase 125 U/L (38-126); Blood Urea Nitrogen 38 mg/dl (7-17); Calcium 9.4 mg/dl (8.4-10.2); Carbon Dioxide 25 mmol/L (22-30); Chloride 107 mmol/L (98-107); Glucose 214 mg/dl (70-99); Potassium 4.1 mmol/L (3.5-5.1); Sodium 139 mmol/L (135-145); Total Protein 6.9 g/dl (6.3-8.2); eGFR 37.10
[2024-09-01 17:33] LABS: Troponin I 0.014 ng/ml
[2024-09-01 17:45] LABS: Nucleated Red Blood Cells % 0 %
--- NOTE | 2024-09-01 20:06 | ED.GENMED ---
History of Present Illness
General
Chief Complaint: Chest Pain
Source: patient
Exam Limitations: none
Time Seen by Provider: 09/01/24 19:49
History of Present Illness
History of Present Illness:
84-year-old female with history of diabetes, coronary artery disease, A-fib requiring ablation on Eliquis presents complaining of onset of chest pain earlier this afternoon. She was not doing anything strenuous. She does describe central chest
pain that was intermittent since its onset. Patient states since 7 PM she has not had any discomfort. No leg swelling or calf pain. She has not missed any doses of the Eliquis. There was no associated nausea diaphoresis or shortness of breath.
Past History
Past History
ED Past Medical History: Arrthythmia, CAD, HTN, Hypercholesterolemia, NIDDM and Hypothyroidism
ED Past Surgical History: Cardiac (Cath LAD stent)
Social History
Tobacco: Non-smoker
Alcohol: None
Drug: None
Personal:
Living: with family
Employment: Retired
Family History
Family History: CAD (MOM-GA age 50)
Phy Exam
Physical Exam
Physical Exam:
General: Well-appearing female no acute respiratory distress
HEENT: Normocephalic atraumatic
Heart: Regular rate and rhythm
Lungs: Clear no wheeze
Extremities: No cyanosis or edema
Scores
Heart Score for Chest Pain Patients
STEMI patient?: No
History: Highly Suspicious
ECG: Nonspecific Repolarization
Age: >/= 65 years
Risk Factors: >/= 3 Risk Factors or History of CAD
Troponin: >1 - <3 x Normal Limit
Heart Score for Chest Pain Patients: 8
Heart Score Risk: 72.7 % MACE over next 6 weeks
Course
Orders/Labs/Results
Orders:
Orders
09/01/24 16:36
Electrocardiogram (*1) Urgent
Reason for Study: Chest Pain
EKG- Treatment ONCE
09/01/24 16:56
Complete Blood Count/With Diff Urgent
Comprehensive Metabolic Panel Urgent
Troponin I Urgent
09/01/24 20:08
CR Chest - 2 Views Urgent
Comment:
Reason For Exam: chest pain
09/01/24 20:15
Troponin I Urgent
09/01/24 20:33
Insulin Aspart [NOVOLOG vial] 100 units .ROUTE .STK-MED ONE
09/01/24 20:34
Insulin Aspart [NOVOLOG vial] 5 units SC NOW STA
09/01/24 21:33
Aspirin 325 mg PO NOW STA
Abnormal Lab Results
09/01/24 09/01/24
16:56 20:06
WBC 12.0 H 10^3/uL
(4.8-10.8)
MCHC 32.4 L g/dL
(33.0-37.0)
RDW 14.6 H %
(11.5-14.5)
Absolute Lymphs (auto) 5.9 H 10^3/uL
(1.2-3.4)
Absolute Monos (auto) 0.7 H 10^3/uL
(0.1-0.6)
Neutrophils % 42.0 L %
(42.2-75.2)
BUN 38 H mg/dl
(7-17)
Creatinine 1.4 H mg/dL
(0.6-1.0)
Glucose 214 H mg/dl
(70-99)
POC Glucose 151 H mg/dl
(70-99)
09/01/24 16:56
09/01/24 16:56
Vital Signs
Initial and Last Documented VS:
Initial Vital Signs
Temp Pulse Resp BP Pulse Ox
97.7 F 63 18 223/81 95
09/01/24 16:37 09/01/24 16:37 09/01/24 16:37 09/01/24 16:37 09/01/24 16:37
Last Documented Vital Signs
Temp Pulse Resp BP Pulse Ox
97.7 F 61 18 192/72 98
09/01/24 16:37 09/01/24 19:53 09/01/24 19:53 09/01/24 19:53 09/01/24 20:08
MDM/Problems Addressed
Differential Diagnosis Includes:
Chest pain. Consider ACS versus pneumonia versus chest wall discomfort. Unlikely to be PE secondary to anticoagulated state. Initial troponin is normal but not undetectable. EKG shows sinus rhythm with questionable T wave inversions inferiorly.
Repeat troponin pending now.
*Pulse Oximetry
SaO2: 98
Oxygen Mode of Delivery: Room air
Patient hypoxic: no
*Critical Care Note
Total Time (30-74mins, 75-104mins- exclusive of procedures): Not Applicable
Update Note
Update Note:
Troponin initially 0.01 4 repeat troponin practically doubled at 0.027. Patient still pain-free however given history concerning story potential EKG changes and increasing troponin decided to discuss with cardiology, Dr. Ahn. Will keep in the
hospital. Admit to hospitalist with cardiology consult.
ED Attending Note
-
Portions of this chart may have been created with voice recognition software.� Occasional wrong word or��sound alike� substitutions may have occurred due to the inherent limitations of voice recognition software.
Discharge Plan
Departure
Patient Disposition: Admit
Date of Disposition: 09/01/24
Time of Disposition: 21:34
Presentation/result/management discussed w/ accepting MD/DO: Hospitalist
Discharge Problem:
Chest pain
Prescriptions:
No Action
cyanocobalamin (vitamin B-12) 1,000 MCG tablet
1,000 mcg PO DAILY
ascorbic acid (vitamin C) 250 MG tablet
250 mg PO DAILY
rosuvastatin 10 MG tablet
10 mg PO HS
cholecalciferol (vitamin D3) 1,000 UNITS tablet
25 mcg PO Q OTHER DAY
levothyroxine 75 mcg Tablet
75 mcg PO DAILY
Eliquis 2.5 mg tablet
2.5 mg PO BID
carvedilol 3.125 mg Tablet
3.125 mg PO BID 30 Days Qty: 60 0RF
cyclobenzaprine 10 mg Tablet
2.5 mg PO HS Qty: 10 0RF
lidocaine 4 % Adhesive Patch,Medicated
2 patch topical DAILY Qty: 30 0RF
carvedilol 3.125 mg Tablet
3.125 mg PO BID Qty: 60 0RF
polyethylene glycol 3350 17 gram Powder In Packet
17 g PO DAILYPRN PRN (Reason: constipation) Qty: 14 0RF
sennosides-docusate sodium 8.6-50 mg Tablet
2 tab-cap PO BIDPRN PRN (Reason: constipation) Qty: 10 0RF
oxycodone 5 mg Tablet
5 mg PO Q6HPRN PRN (Reason: severe pain) Qty: 10 0RF
acetaminophen 325 mg Tablet
650 mg PO Q4HPRN PRN (Reason: mild pain/RAMIREZ/temp> 100.4F) Qty: 20 0RF
insulin aspart U-100 [Novolog FlexPen U-100 Insulin] 100 unit/mL (3 mL) insulin pen
10 unit SC AC Qty: 0 0RF
insulin glargine [Lantus Solostar U-100 Insulin] 100 unit/mL (3 mL) insulin pen
20 unit SC HS Qty: 0 0RF
Referrals:
Susie Jarquin PA-C [Family Provider, Family Practice]
Interventions
Interventions:
*Risk Screen - Suicide Last Done: 09/01/24 16:40
*Neglect/Abuse Screening Last Done: 09/01/24 16:40
ED- Cardiac Assessment Last Done: 09/01/24 19:54
Discharge Date and Time
Print Language: KOREAN
[2024-09-01 20:08] LABS: Glucose - Point of Care 151 mg/dl (70-99)
[2024-09-01] MEDS: NOVOLOG vial 5 UNITS SC (20:35)
[2024-09-01 20:49] LABS: Troponin I 0.027 ng/ml
[2024-09-01] MEDS: ASPIRIN 325 MG PO (21:51)
--- NOTE | 2024-09-01 22:28 | HPS.HSE ---
Family Physician
-
Family Physician: Susie Jarquin PA-C
Chief Complaint
-
mid sternum chest pain
History of Present Illness
84-year-old female with history of diabetes, coronary artery disease, A-fib requiring ablation on Eliquis presents complaining of onset of mid sternum chest pain intermittent throughout the day. patient stated it was non radiating and non
exertional chest pain. denied sob. denied RAMIREZ, dizzy or syncope. denied abdominal pain,n,v,d. denied dysuria or hematuria.
upon arrival noted to have elevated trop with T wave inversion inferiorly. received a dose of asa in ER. admitting for further management.
Medical History
Past Medical History
Past Medical History: Reports Other
Additional Past Medical History:
Hypothyroidism
TIA
Hypertension
CKD
History A-fib
Type 2 diabetes ischemic cardiomyopathy secondary hyperparathyroidism
Coronary artery disease hyperlipidemia
Past Surgical History: Reports Other
Additional Past Surgical History:
Cardiac stent
Cardioversion
Social History
Tobacco: Non-smoker
Alcohol: None
Drug: None
Living: With Family
Family History
Family History: Not pertinent
Allergies / Home Medications
Allergies reflects when Allergies were last updated in [employer].
Home Medications with original date entered in [employer]
Allergy/Medication List:
Allergies
Allergy/AdvReac Type Severity Reaction Status Date / Time
amiodarone Allergy Itching Verified 03/16/24 19:00
semaglutide (From Ozempic) Allergy Itching Verified 03/16/24 19:00
Home Medications
ascorbic acid (vitamin C) 250 mg tablet 250 mg PO DAILY Supplement 01/08/18
cyanocobalamin (vitamin B-12) 1,000 mcg tablet 1,000 mcg PO DAILY Supplement 01/08/18
cholecalciferol (vitamin D3) 25 mcg (1,000 unit) tablet 25 mcg PO Q OTHER DAY Supplement 01/14/21
rosuvastatin 10 mg tablet 10 mg PO HS High Cholesterol 01/14/21
levothyroxine 75 mcg tablet 75 mcg PO DAILY Thyroid 12/16/21
apixaban 2.5 mg tablet (Eliquis) 2.5 mg PO BID Blood Clot Prevention/Tx 03/30/22
carvedilol 3.125 mg tablet 3.125 mg PO BID 30 days #60 tabs 03/30/24
acetaminophen 325 mg tablet 650 mg (2 x 325 mg) PO Q4HPRN PRN mild pain/RAMIREZ/temp> 100.4F #20 tabs 04/04/24
carvedilol 3.125 mg tablet 3.125 mg PO BID #60 tabs 04/04/24
cyclobenzaprine 10 mg tablet 2.5 mg (1/4 x 10 mg) PO HS #10 tabs 04/04/24
insulin aspart U-100 100 unit/mL (3 mL) subcutaneous pen (Novolog FlexPen U-100 Insulin aspart) 10 unit (0.1 mL) SC AC Diabetes #0 mL 04/04/24
insulin glargine 100 unit/mL (3 mL) subcutaneous pen (Lantus Solostar U-100 Insulin) 20 unit (0.2 mL) SC HS Diabetes #0 mL 04/04/24
lidocaine 4 % topical patch 2 patch topical DAILY #30 ea 04/04/24
oxycodone 5 mg tablet 5 mg PO Q6HPRN PRN severe pain #10 tabs 04/04/24
polyethylene glycol 3350 17 gram oral powder packet 17 g PO DAILYPRN PRN constipation #14 ea 04/04/24
sennosides 8.6 mg-docusate sodium 50 mg tablet 2 tab-cap (2 x 8.6-50 mg) PO BIDPRN PRN constipation #10 tabs 04/04/24
Review of Systems
-
Constitutional: Reports No Symptoms
EENT: Reports No Symptoms
Respiratory: Reports No Symptoms
Cardiac: Reports Chest Pain
Abdomen/GI: Reports No Symptoms
: Reports No Symptoms
Musculoskeletal: Reports No Symptoms
Skin: Reports No Symptoms
Neurological: Reports No Symptoms
Endocrine: Reports No Symptoms
Hematologic/Lymphatic: Reports No Symptoms
Psych: Reports No Symptoms
Physical Exam
Vital Signs
Vital Signs
Temp Pulse Resp BP Pulse Ox
97.7 F 61 18 192/72 98
09/01/24 16:37 09/01/24 19:53 09/01/24 19:53 09/01/24 19:53 09/01/24 20:08
Physical Exam
General: Well Developed, Well Nourished and No Apparent Distress
HEENT: NormoCephalic, Moist mucous membranes and Atraumatic
Respiratory: Clear
Cardiac: S1/S2 and Regular Rhythm; No Murmur or Rub
GI: Soft, Non Tender, Non Distended and Normal Bowel Sounds; No Organomegaly
Rectal: Deferred by Provider
Musculoskeletal: No Clubbing, No Cyanosis and No Edema
Skin: No Rash
Neuro: AO x 3 and Nonfocal/grossly intact
Psych: Calm
Laboratory Results
-
09/01/24 16:56
09/01/24 16:56
Laboratory Results
Total Bilirubin 0.6 mg/dl (0.2-1.3) 09/01/24 16:56
AST 20 U/L (14-36) 09/01/24 16:56
ALT 15 U/L (0-35) 09/01/24 16:56
Alkaline Phosphatase 125 U/L (38-126) 09/01/24 16:56
Troponin I 0.027 ng/ml D 09/01/24 20:15
Data Reviewed
-
Diagnostic Radiology: Report Reviewed by me
Lab Data: Labs Reviewed by me
Impression/Plan
-
# Chest pain concerning for NSTEMI
# History of coronary artery disease with cardiac stent
- T wave inversion on EKG, troponin
- Continue aspirin
- Continue to trend troponin
- Cardiology consult
- chest x-ray with impression of MILD INTERSTITIAL and ALVEOLAR CARDIOGENIC PULMONARY EDEMA.
2. Mild chronic pulmonary arterial hypertension.
3. Moderate chronic scarring in the lingula.
4. Minimal left pleural effusion.
# History of A-fib s/p ablation on Eliquis
-coreg continued with hold parameter
# Chronic leukocytosis/history of CLL
- WBCs 12.0 Patient afebrile continue to monitor
# CKD stage IIIb creatinine 1.4
- Continue to monitor
#Diabetes mellitus type 2:
-Continue insulin sliding scale
-lantus 11u at hs
-aspart 5u with meals
#Hyperlipidemia:
-Continue statin
#Hypothyroidism:
-Continue thyroid replace
#History of TIA/CVA:
-On Eliquis and statin
#DVT prophylaxis:
-Eliquis
#CODE STATUS:
-Full code
--- NOTE | 2024-09-01 23:05 | W.PN.UPDATE ---
Update Note
Progress Note Update
Patient seen in conjunction with TJ. I agree with the findings on history and physical. I concur with assessment and plan unless stated otherwise.
Briefly, this is a 84-year-old female with past medical history of atrial fibrillation on anticoagulation, CAD, hhw-ekcqctt-zoevymnue diabetes, hypertension and hyperlipidemia who presents to the emergency department with chest pain described as
intermittent since onset this a.m. No associated nausea vomiting or diaphoresis. Denies shortness of breath. Denies palpitations. She has no lower extremity swelling. She denies orthopnea or PND. She has not had any additional discomfort since
7 PM. Denies recent episodes of exertional chest pain.
In the Emergency Department she was afebrile, blood pressure was 160/50 with a pulse of 65 and she was satting 98% on room air. ECG shows a normal sinus rhythm at a rate of 61. Troponin was initially 0.014 and repeat was 0.027. X-ray shows mild
cardiogenic pulmonary edema however patient is in no respiratory distress. CBC shows a white count of 12 but otherwise unremarkable. Creatinine is at baseline at 1.4. Electrolytes were all normal.
Assessment and plan
Patient with history of CAD and atrial fibrillation on anticoagulation presenting with intermittent chest pain and slight T wave inversions inferiorly on EKG. There was an uptrending of troponin on initial evaluation.
- Admit to telemetry observation for now
- Continue trending troponin as patient is chest pain-free
- Continue Eliquis for now
- Aspirin x 1
- Continue statin, carvedilol
- Cardiology consult in a.m. as they have been notified
- No echo for now
DVT prophylaxis�on Eliquis
CODE STATUS�full code
[2024-09-02] VITALS (12 sets, daily range): BP systolic 105–188; BP diastolic 52–131; BMI 23.1
[2024-09-02] MEDS: ELIQUIS 2.5 MG PO ×3 (04:00→19:42)
[2024-09-02] MEDS: COREG 3.125 MG PO ×3 (04:00→19:42)
[2024-09-02 06:19] LABS: Hematocrit 40.6 % (37.0-47.0); Hemoglobin 13.1 g/dL (12.0-16.0); Mean Corp Hgb Conc. 32.3 g/dL (33.0-37.0); Mean Corpuscular Volume 90.8 fL (81.0-99.0); Platelet Count 140 10^3/uL (130-400); Red Cell Dist. Width 14.5 % (11.5-14.5)
[2024-09-02] MEDS: SYNTHROID 75 MCG PO (06:19)
[2024-09-02 06:53] LABS: Troponin I 0.013 ng/ml
--- NOTE | 2024-09-02 07:13 | CON.CAR ---
Consultation
Consultation Request
Date/Time Consultation Requested: September 01, 2024
Date/Time Consultation Performed: September 01, 2024
Requesting Provider: Hospitalist
Performing Provider: Anabelle
Reason for Consultation: Chest pain
Medical History
-
Chief Complaint: Chest pain
History of Present Illness:
84-year-old female presents with intermittent chest pressure and chest pain. Troponin noted to be 0.01 which increased to 0.02. She has symptoms and signs of congestive heart failure and had a recent mission for CHF in May. She has a history of
coronary artery disease with a mid LAD stent and a chronic total occlusion at last catheterization 2021 in the mid RCA with [id number] collaterals. She has nonspecific inferolateral changes on her ECG. The ejection fraction prior to her
pulmonary vein isolation and posterior wall isolation in March [address] Jansen was 40 to 45% which improved on most recent echo in May to 50 to 55% by review. Her chest x-ray on admission is consistent with interstitial edema.
PMHX:
Recent admission for Afib with RVR 03/12/24 until 03/13/24
Paroxysmal to persistent Afib
Intolerance of amiodarone, poor candidate for sotalol, dofetilide, 1C drugs
Chronic Eliquis OAC
s/p PVI 03/29/24Acute HFrEF, new diagnosis
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
EF improved to 40-45% by echo 03/30/24Orthostatic hypotension
CAD
s/p 3 mm Xience to prox LAD and bifurcation PTCA first diagonal and PTCA of OM1 superior and Inferior branches 02/2008CKD 3b
Elevated LFTs
DM 2
HTN
Hyperlipidemia
h/o CVA 2013
Echo 04/01/2022: EF 55%, mild cLVH, stage II diastolic dysfunction, mild MAC, mild to moderate MR, mild AI
Echo 03/17/2024: EF 35%, moderate tricuspid regurgitation and elevated pulmonary artery pressures estimated at 55-60 mmHg.
Echo 03/30/2024: Urgent bedside study in the setting of rapid response, EF 40 to 45%, no evidence of pericardial effusion
Past Medical History
Past Medical History: Arrhythmias, CAD and HTN
Social History
Tobacco: Non-Smoker
Alcohol: None
Drug: None
Personal: Other
Living: Other
Employment: Not Employed
Family History
Family History: Reviewed & Not Pertinent
Allergies / Home Medications
Allergy/AdvReac Type Severity Reaction Status Date / Time
amiodarone Allergy Itching Verified 03/16/24 19:00
semaglutide (From Ozempic) Allergy Itching Verified 03/16/24 19:00
�Medication �Instructions �Recorded �Confirmed �Type
ascorbic acid (vitamin C) 250 mg 250 mg PO DAILY Supplement 01/08/18 09/01/24 History
tablet
cyanocobalamin (vitamin B-12) 1,000 mcg PO DAILY Supplement 01/08/18 09/01/24 History
1,000 mcg tablet
cholecalciferol (vitamin D3) 25 25 mcg PO Q OTHER DAY Supplement 01/14/21 09/01/24 History
mcg (1,000 unit) tablet
rosuvastatin 10 mg tablet 10 mg PO HS High Cholesterol 01/14/21 09/01/24 History
levothyroxine 75 mcg tablet 75 mcg PO DAILY Thyroid 12/16/21 09/01/24 History
apixaban 2.5 mg tablet (Eliquis) 2.5 mg PO BID Blood Clot 03/30/22 09/01/24 History
Prevention/Tx
carvedilol 3.125 mg tablet 3.125 mg PO BID 30 days #60 tabs 03/30/24 09/01/24 Rx
insulin aspart U-100 100 unit/mL 5 unit SC AC Diabetes 09/01/24 09/01/24 History
(3 mL) subcutaneous pen (Novolog
FlexPen U-100 Insulin aspart)
insulin glargine 100 unit/mL (3 11 unit SC HS Diabetes 09/01/24 09/01/24 History
mL) subcutaneous pen (Lantus
Solostar U-100 Insulin)
Review of Systems
-
All other systems: Negative unless noted
Cardiac: Chest Pain
Physical Exam
Vital Signs
Temp Pulse Resp BP Pulse Ox
97.7 F 69 18 105/77 100
09/01/24 16:37 09/02/24 06:24 09/02/24 06:24 09/02/24 06:24 09/02/24 06:24
Lab Results
09/02/24 06:10
Troponin I 0.013 ng/ml 09/02/24 06:10
Physical Exam
General: Well Developed and Well Nourished
HEENT: Normocephalic
Respiratory: Crackles
Cardiac: Regular Rhythm and Murmur (No murmur)
Breast: Deferred by me
GI: Soft and Non Tender
Musculoskeletal: No Clubbing and No Cyanosis
Skin: Warm
Neuro: Awake, Alert and Oriented
Hematologic/Lymphatic: No Lymphadenopathy
Psych: Calm
Impression / Plan
-
PCP: Susie Jarquin PA-C
Sales Development Manager: Dr. Read
Impression:
Admission for chest pain on September 01, 2024
Heart failure admission May 2024
Indeterminate troponin
History of tachycardia induced cardiomyopathy
Recovered cardiomyopathy at May 2024 echo
Recent admission for Afib with RVR 03/12/24 until 03/13/24
Paroxysmal to persistent Afib
Intolerance of amiodarone, poor candidate for sotalol, dofetilide, 1C drugs
Chronic Eliquis OAC
s/p PVI 03/29/24Acute HFrEF, new diagnosis
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
EF improved to 40-45% by echo 03/30/24Orthostatic hypotension
CAD
s/p 3 mm Xience to prox LAD and bifurcation PTCA first diagonal and PTCA of OM1 superior and Inferior branches 02/2008CKD 3b
Elevated LFTs
DM 2
HTN
Hyperlipidemia
h/o CVA 2013
Echo 04/01/2022: EF 55%, mild cLVH, stage II diastolic dysfunction, mild MAC, mild to moderate MR, mild AI
Echo 03/17/2024: EF 35%, moderate tricuspid regurgitation and elevated pulmonary artery pressures estimated at 55-60 mmHg.
Echo 03/30/2024: Urgent bedside study in the setting of rapid response, EF 40 to 45%, no evidence of pericardial effusion
Echo 06/04/2024 reviewed with improved ejection fraction
Recommend:
-Her medication therapy has been limited by low blood pressures in the past. Would recommend Lasix 20 mg IV daily at this time given her edema and please check BNP
-She has an elevated creatinine and known coronary artery disease I favor medical management would be the best plan of care at this point
-Nonetheless would be reasonable to see what her ischemic burden is and can consider a chemical stress test on Wednesday with n.p.o. after midnight Wednesday night into Wednesday
-I do not feel strongly that she receives heparin and would continue her oral anticoagulation with Eliquis 2.5 mg twice daily. If the plan is changed towards an invasive ischemic evaluation she could be switched to heparin
-If blood pressure tolerates it would be reasonable to consider Imdur 30 mg daily or low-dose amlodipine as another antianginal. I am not sure she would tolerate higher dose carvedilol at this time
-We will follow daily with you
-Please keep her intake less than output
Data Reviewed
-
EKG: Tracing Personally Visualized and interpreted
Radiology: Image Personally Visualized and interpreted
CT Scan: Report Reviewed by me
Labs: Labs Reviewed by me
Old Records: Reviewed
[2024-09-02 07:59] LABS: Blood Urea Nitrogen 36 mg/dl (7-17); Calcium 9.5 mg/dl (8.4-10.2); Carbon Dioxide 26 mmol/L (22-30); Chloride 109 mmol/L (98-107); Estimated Creatinine Clearance 27 ml/min; Glucose 172 mg/dl (70-99); HDL Cholesterol 58 mg/dl; LDL Cholesterol, Calculated 65 mg/dl; Potassium 4.5 mmol/L (3.5-5.1); Sodium 141 mmol/L (135-145); Very Low Density Lipoprotein 15 mg/dl (0-30); eGFR 34.15
[2024-09-02] MEDS: LOW STRENGTH ASPIRIN 81 MG PO (08:33)
[2024-09-02] MEDS: LASIX 20 MG IV (08:35)
[2024-09-02 08:45] LABS: Glucose - Point of Care 181 mg/dl (70-99)
[2024-09-02 08:51] LABS: Glycohemoglobin (HgbA1c) 8.0 % (4.0-5.6)
[2024-09-02] MEDS: NOVOLOG FLEXPEN-LOW RESISTANCE 1 UNITS SC ×2 (09:21→17:01)
[2024-09-02] MEDS: NOVOLOG FLEXPEN 5 UNITS SC ×3 (09:21→17:01)
--- NOTE | 2024-09-02 10:02 | W.PN.HOSP.TC ---
Today's Communication/Plan
-
IV Lasix. Cardio eval
Assessment / Plan
Assessment / Plan
Physical exam:
General: Acutely ill
HEENT: Normocephalic, Atraumatic and Moist Mucous Membranes
Respiratory: Clear to Auscultation; Negative Wheezes, Rales or Rhonchi
Cardiac: Regular Rhythm and S1/S2
GI: Soft, Nontender and Nondistended
Musculoskeletal: No Clubbing, No Cyanosis and No Edema
Neuro: Awake, Alert and Oriented, no neurological deficits
Psych: Calm
A/P:
Acute on chronic HFrEF:
Continue IV Lasix 20 mg daily
GDMT as blood pressure allows
Monitor ins and out
Monitor daily weight
Cardiology consult appreciated
Discussed with daughter at bedside today
Chest pain/ History of CAD:
Continue cardiac exercise specialist
Continue current anti-ischemic regimen
History of s/p 3 mm Xience to prox LAD and bifurcation PTCA first diagonal and PTCA of OM1 superior and Inferior branches 02/2008
Plan for stress test on Wednesday
Further recommendations based on workup
Paroxysmal to persistent atrial fibrillation:
Status post ablation in the past
Anticoagulation Eliquis 2.5 mg twice a day
On rate control agents, carvedilol 3.125 mg twice a day
Continue cardiac monitoring
CLL:
Follow-up as outpatient with oncology
CKD stage IIIb:
Avoid nephrotoxic
Monitor renal function
Diabetes mellitus type 2:
Continue insulin sliding scale
Continue Lantus 11 units nightly
Hyperlipidemia:
Continue rosuvastatin 10 mg p.o. nightly
Hypothyroidism:
Continue levothyroxine 75 mcg p.o. daily
History of TIA/CVA:
On Eliquis and statin
DVT prophylaxis:
Eliquis
CODE STATUS:
Full code
Total time spent on today's encounter was 52 minutes which included time spent in counseling the patient/family regarding diagnosis and treatment plan as listed above, goals of care, and symptom management. Case was discussed with nursing staff,
specialists, and care coordinators/case management. All labs and imaging personally reviewed by me. Remainder the time spent in detailed review of previous records, lab data, imaging, and other medical provider documentation.
Anticipated Discharge: > 48 hours
Subjective/Interval History
-
Date of Service: September 02, 2024
Patient denies chest pain or worsening shortness of breath today. Afebrile
Objective Data
-
Labs:
Laboratory Results
09/02/24
06:10
WBC 11.9 H
Hgb 13.1
Hct 40.6
Plt Count 140
Sodium 141
Potassium 4.5
Chloride 109 H
Carbon Dioxide 26
BUN 36 H
Creatinine 1.5 H
Glucose 172 H
Calcium 9.5
Vital Signs:
Vital Signs
Temp Pulse Resp BP Pulse Ox
97.7 F 59 12 105/77 100
09/01/24 16:37 09/02/24 08:15 09/02/24 08:15 09/02/24 06:24 09/02/24 06:24
--- NOTE | 2024-09-02 11:03 | CM ---
Met with patient at bedside in the ED
Pharmacy verified: [facility] @ [address] [address]
Patient lives with and daughter; one floor in-law suite on daughter's multilevel home. No steps to enter; utilizes a Chair Lift to go up/down in the home
PLOF: patient is independent with personal care; daughter assists w/ ADLs; ambulates with a cane; does not drive
Caregiver to
SNF stay @ [facility] 2023; Home Health w/ [facility] this year or last year.
Daughter will transport home
Plan: anticipate that patient will discharge to home when medically stable. She is agreeable to home health if recommended; preference is [facility]
[2024-09-02 12:28] LABS: Glucose - Point of Care 212 mg/dl (70-99)
[2024-09-02 12:28] LABS: Troponin I < 0.012 ng/ml
[2024-09-02] MEDS: NOVOLOG FLEXPEN-LOW RESISTANCE 2 UNITS SC (12:29)
--- NOTE | 2024-09-02 13:10 | PTCARENOTE ---
Patient admitted to IVU. AO x3. Denies pain in her chest, chronic back and neck pain. A-fib, HR 53, BP 145/65. Denies shortness of breath. Assisted to the bathroom to void, uses a single point cane to ambulate, gait is steady. Oriented to room and
call vasquez, daughter Yesenia at bedside, call vasquez in reach
[2024-09-02 17:04] LABS: Glucose - Point of Care 198 mg/dl (70-99)
[2024-09-02] MEDS: FLUSH (NSS) 1 FLUSH IV (19:41)
[2024-09-02 20:56] LABS: Glucose - Point of Care 232 mg/dl (70-99)
[2024-09-02] MEDS: CRESTOR 10 MG PO (22:56)
[2024-09-02] MEDS: LANTUS 0.11 UNITS SC (22:56)
[2024-09-03] VITALS (7 sets, daily range): BP systolic 111–173; BP diastolic 50–92; BMI 22.7
--- NOTE | 2024-09-03 00:28 | PTCARENOTE ---
Received pt at change of shift OOB in chair. SB/sinus arrhythmia on tele. HR 50's-60's. pt denies any CP or SOB. Encouraged pt to call staff development coordinator with any questions/concerns. Call vasquez within reach.
[2024-09-03 04:13] LABS: Hematocrit 37.7 % (37.0-47.0); Hemoglobin 12.6 g/dL (12.0-16.0); Mean Corp Hgb Conc. 33.4 g/dL (33.0-37.0); Mean Corpuscular Volume 88.7 fL (81.0-99.0); Platelet Count 143 10^3/uL (130-400); Red Cell Dist. Width 14.6 % (11.5-14.5)
[2024-09-03 04:39] LABS: Blood Urea Nitrogen 43 mg/dl (7-17); Calcium 9.2 mg/dl (8.4-10.2); Carbon Dioxide 23 mmol/L (22-30); Chloride 106 mmol/L (98-107); Estimated Creatinine Clearance 24 ml/min; Glucose 204 mg/dl (70-99); Magnesium 2.0 mg/dl (1.6-2.3); Potassium 4.4 mmol/L (3.5-5.1); Sodium 137 mmol/L (135-145); eGFR 29.39
[2024-09-03] MEDS: SYNTHROID 75 MCG PO (06:13)
[2024-09-03] MEDS: NOVOLOG FLEXPEN 5 UNITS SC ×4 (08:05→22:41)
[2024-09-03 08:09] LABS: Glucose - Point of Care 213 mg/dl (70-99)
[2024-09-03] MEDS: NOVOLOG FLEXPEN-LOW RESISTANCE 2 UNITS SC (08:09)
[2024-09-03] MEDS: ELIQUIS 2.5 MG PO ×2 (08:17→19:27)
[2024-09-03] MEDS: COREG 3.125 MG PO ×2 (08:17→19:27)
[2024-09-03] MEDS: IMDUR (EXTENDED RELEASE) 30 MG PO (08:17)
[2024-09-03] MEDS: LOW STRENGTH ASPIRIN 81 MG PO (08:17)
--- NOTE | 2024-09-03 08:20 | W.PN.CARDCBS ---
Today's Communication / Plan
-
Hold on any further diuresis
Follow renal function
Plan for nuclear stress test tomorrow
Impression / Plan
-
PCP: Susie Jarquin PA-C
Crm Manager: Dr. Read
Impression:
Admission for chest pain on September 01, 2024
Heart failure admission May 2024
Indeterminate troponin
History of tachycardia induced cardiomyopathy
Recovered cardiomyopathy at May 2024 echo
Recent admission for Afib with RVR 03/12/24 until 03/13/24
Paroxysmal to persistent Afib
Intolerance of amiodarone, poor candidate for sotalol, dofetilide, 1C drugs
Chronic Eliquis OAC
s/p PVI 03/29/24
CM, EF newly (Feb 2024) reduced at 35%, suspect tachycardia mediated
EF improved to 40-45% by echo 03/30/24
Normalized by echocardiogram June 04, 2024
Orthostatic hypotension
CAD
s/p 3 mm Xience to prox LAD and bifurcation PTCA first diagonal and PTCA of OM1 superior and Inferior branches 02/2008
CKD 3b
Elevated LFTs
DM 2
HTN
Hyperlipidemia
h/o CVA 2013
Echo 04/01/2022: EF 55%, mild cLVH, stage II diastolic dysfunction, mild MAC, mild to moderate MR, mild AI
Echo 03/17/2024: EF 35%, moderate tricuspid regurgitation and elevated pulmonary artery pressures estimated at 55-60 mmHg.
Echo 03/30/2024: Urgent bedside study in the setting of rapid response, EF 40 to 45%, no evidence of pericardial effusion
Echo 06/04/2024: LVEF improved/normalized to 55 to 60%. There is possible basal septal akinesis and basal inferior hypokinesis.
Troponin values this admission:
0.014, 0.027, 0.013,<0.012
proBNP this admission:
3360
ECGs:
September 01, 2024: Sinus rhythm with PACs and inferior as well as lateral ST and T wave abnormalities, no significant change from March 30, 2024
September 02, 2024, sinus rhythm with inferior ST and T wave abnormalities as well as anterior lateral ST and T wave abnormalities, anterior T wave abnormalities are new
Chest x-ray September 01, 2024:
Mild interstitial pulmonary edema. Minimal left pleural effusion.
Recommend:
She has HFimpEF with LVEF improving/normalizing with rhythm control of atrial fibrillation since her ablation in March 2024
She presents now likely with a component of acute on chronic HFimpEF given her symptoms, elevated proBNP and chest x-ray findings.
She has received low-dose Lasix given her propensity towards hypotension/orthostasis.
With Lasix 20 mg IV daily her weight is down to 145 pounds from 147 pounds yesterday and 152 pounds on day of admission. Fluid balance is not accurately recorded
Creatinine is at essentially her baseline given background chronic kidney disease. Although creatinine is elevated from admission. On admission creatinine 1.4 and today 1.7
She tells me that she has not had any shortness of breath.
She likely has diuresed on and off. Will stop IV Lasix.
She is presenting with chest discomfort somewhat concerning for acute coronary syndrome.
Troponins have essentially been flat (0.014, 0.027, 0.013,<0.012) but there are ST and T wave abnormalities/changes on her ECG
Importantly, her chest pain is very atypical. She describes it as lasting seconds and then recurring a few hours later but only lasting a few seconds sharp and midsternal. She has had no recurrence of this since 7 PM on the day of admission
Sunday, September 01, 2024.
I do not think this represents an unstable coronary syndrome but she has known coronary artery disease
The mild abnormalities of troponin could be nonmyocardial ischemic and related to mild heart failure decompensation.
I do think it would be best to undergo an ischemic evaluation. Will plan for nuclear stress test on September 04.
She has history of persistent atrial fibrillation.
She underwent ablation in March 2024.
She has been maintaining sinus rhythm. With maintenance of sinus rhythm LVEF has improved/normalized.
Maintain Eliquis 2.5 mg p.o. twice daily (dose reduction given age and renal function ) for atrial fibrillation related thromboembolic risk reduction.
I reviewed her clinical course in detail with her.
Total time spent today was 51 minutes in preparing to see the patient, seeing the patient and coordination of care. This included review of recent laboratory evaluations, cardiact testing, imaging studies, primary care rtecords, specialty
consultations, hospital records, as well as personally interviewing and examining the patient, which included discussion of their tests, review/ordering medications, and communicating with other healthcare professionals and also treatment planning
as well as counseling.
Progress Note - Crm Manager
Subjective
Date of Service: September 03, 2024
She tells me she has no chest pain. No shortness of breath palpitations or dizziness.
Objective
Labs:
09/03/24 03:56
09/03/24 03:56
Labs
Hgb 12.6 g/dL (12.0-16.0) 09/03/24 03:56
Hct 37.7 % (37.0-47.0) 09/03/24 03:56
Plt Count 143 10^3/uL (130-400) 09/03/24 03:56
Sodium 137 mmol/L (135-145) 09/03/24 03:56
Potassium 4.4 mmol/L (3.5-5.1) 09/03/24 03:56
BUN 43 mg/dl (7-17) H 09/03/24 03:56
Creatinine 1.7 mg/dL (0.6-1.0) H 09/03/24 03:56
Glucose 204 mg/dl (70-99) H 09/03/24 03:56
Troponins
09/01/24 09/01/24 09/02/24
16:56 20:15 03:20
Troponin I 0.014 0.027 D Cancelled
09/02/24 09/02/24
06:10 11:39
Troponin I 0.013 < 0.012
Vital Signs and I&O:
Vital Signs
Temp Pulse Resp BP Pulse Ox
97.5 F 68 20 173/64 94
09/03/24 08:11 09/03/24 08:17 09/03/24 08:11 09/03/24 08:17 09/03/24 08:11
Vital Signs
Temp Pulse Resp BP Pulse Ox
97.5 F 68 20 173/64 94
09/03/24 08:11 09/03/24 08:17 09/03/24 08:11 09/03/24 08:17 09/03/24 08:11
Intake & Output
09/01/24 09/02/24 09/03/24 09/04/24
06:59 06:59 06:59 06:59
Intake Total 720 / 720
Balance 720 / 720
Physical Exam
Physical Exam
Well-appearing elderly woman sitting in chair smiling. She is eating breakfast.
Regular rate and rhythm with some ectopy, normal S1 and S2 no S3 no S4 is grade 1/6 apical holosystolic murmur no rubs. PMI is normally placed
Lungs clear auscultation bilaterally without wheezes rales or rhonchi.
Abdomen soft nontender nondistended with normoactive bowel sounds.
Extremities no clubbing cyanosis or edema.
--- NOTE | 2024-09-03 08:31 | W.PN.HOSP.TC ---
Addendum entered and electronically signed by Mg Shaffer MD 09/07/24 15:36:
CKD stage IIIb
Original Note:
Today's Communication/Plan
-
Plan for stress test tomorrow
Assessment / Plan
Assessment / Plan
Physical exam:
General: Acutely ill
HEENT: Normocephalic, Atraumatic and Moist Mucous Membranes
Respiratory: Clear to Auscultation; Negative Wheezes, Rales or Rhonchi
Cardiac: Regular Rhythm and S1/S2
GI: Soft, Nontender and Nondistended
Musculoskeletal: No Clubbing, No Cyanosis and No Edema
Neuro: Awake, Alert and Oriented, no neurological deficits
Psych: Calm
A/P:
Acute on chronic HFrEF:
Cardiology stopping diuresis today
Reevaluate diuresis need
GDMT as blood pressure allows
Monitor ins and out
Monitor daily weight
Cardiology consult appreciated
Discussed with daughter at bedside yesterday
Chest pain/ History of CAD:
Continue youth nutritional monitor
Continue current anti-ischemic regimen
History of s/p 3 mm Xience to prox LAD and bifurcation PTCA first diagonal and PTCA of OM1 superior and Inferior branches 02/2008
Plan for stress test on Wednesday
Further recommendations based on workup
Paroxysmal to persistent atrial fibrillation:
Status post ablation in the past
Anticoagulation Eliquis 2.5 mg twice a day
On rate control agents, carvedilol 3.125 mg twice a day
Continue cardiac monitoring
CLL:
Follow-up as outpatient with oncology
CKD stage IIIb:
Avoid nephrotoxic
Monitor renal function
Diabetes mellitus type 2:
Continue insulin sliding scale
Continue Lantus 11 units nightly
Hyperlipidemia:
Continue rosuvastatin 10 mg p.o. nightly
Hypothyroidism:
Continue levothyroxine 75 mcg p.o. daily
History of TIA/CVA:
On Eliquis and statin
DVT prophylaxis:
Eliquis
CODE STATUS:
Full code
Time spent 36 minutes
Anticipated Discharge: 24 - 48 hours
Subjective/Interval History
-
Date of Service: September 03, 2024
Patient denies chest pain or shortness of breath. No peripheral edema
Objective Data
-
Labs:
Laboratory Results
09/03/24
03:56
WBC 13.3 H
Hgb 12.6
Hct 37.7
Plt Count 143
Sodium 137
Potassium 4.4
Chloride 106
Carbon Dioxide 23
BUN 43 H
Creatinine 1.7 H
Glucose 204 H
Calcium 9.2
Vital Signs:
Vital Signs
Temp Pulse Resp BP Pulse Ox
97.5 F 68 20 173/64 94
09/03/24 08:11 09/03/24 08:17 09/03/24 08:11 09/03/24 08:17 09/03/24 08:11
I&O
09/02/24 09/03/24 09/04/24
06:59 06:59 06:59
Intake Total 720 / 720
Balance 720 / 720
[2024-09-03] MEDS: LASIX IV (09:06)
--- NOTE | 2024-09-03 11:48 | PTCARENOTE ---
Assumed care at 0700. Patient walking in room using her cane, gait steady. She denies chest pain. SA on telemetry, HR irregular. Using call vasquez for assistance
[2024-09-03 12:15] LABS: Glucose - Point of Care 327 mg/dl (70-99)
[2024-09-03] MEDS: NOVOLOG FLEXPEN-LOW RESISTANCE 4 UNITS SC (12:15)
[2024-09-03 17:03] LABS: Glucose - Point of Care 165 mg/dl (70-99)
[2024-09-03] MEDS: NOVOLOG FLEXPEN-LOW RESISTANCE 1 UNITS SC (18:03)
--- NOTE | 2024-09-03 18:24 | PTCARENOTE ---
Patient comfortable in the chair. Patient chest pain free. Plan of care reviewed, call vasquez in reach
[2024-09-03] MEDS: FLUSH (NSS) 1 FLUSH IV (19:27)
--- NOTE | 2024-09-03 20:50 | PTCARENOTE ---
Received pt at change of shift OOB in chair. Sinus arrhythmia on tele, HR in the 60's-70's. pt denies any CP or SOB. pt ambulating with cane in room. Encouraged pt to call RN w/ any questions/concerns. Call vasquez within reach.
[2024-09-03 22:29] LABS: Glucose - Point of Care 351 mg/dl (70-99)
[2024-09-03] MEDS: CRESTOR 10 MG PO (22:35)
[2024-09-03] MEDS: LANTUS 0.05 UNITS SC (22:39)
--- NOTE | 2024-09-04 00:05 | PTCARENOTE ---
pt pm accu check done, result of 351. Radha Ardon NP made aware. 5 units of Novolog ordered. Administered Novolog and 5 units of Lantus as ordered--see APR.
[2024-09-04 00:52] LABS: Glucose - Point of Care 221 mg/dl (70-99)
[2024-09-04 03:30] VITALS: BP 137/62
[2024-09-04 03:32] VITALS: BMI 22.8
[2024-09-04 03:58] LABS: Hematocrit 38.3 % (37.0-47.0); Hemoglobin 12.7 g/dL (12.0-16.0); Mean Corp Hgb Conc. 33.2 g/dL (33.0-37.0); Mean Corpuscular Volume 88.9 fL (81.0-99.0); Platelet Count 154 10^3/uL (130-400); Red Cell Dist. Width 14.3 % (11.5-14.5)
[2024-09-04 04:20] LABS: Blood Urea Nitrogen 39 mg/dl (7-17); Calcium 9.5 mg/dl (8.4-10.2); Carbon Dioxide 21 mmol/L (22-30); Chloride 108 mmol/L (98-107); Estimated Creatinine Clearance 29 ml/min; Glucose 193 mg/dl (70-99); Magnesium 2.1 mg/dl (1.6-2.3); Potassium 4.6 mmol/L (3.5-5.1); Sodium 138 mmol/L (135-145); eGFR 37.10
[2024-09-04] MEDS: SYNTHROID 75 MCG PO (05:48)
[2024-09-04 05:53] LABS: Glucose - Point of Care 200 mg/dl (70-99)
[2024-09-04] MEDS: COREG 3.125 MG PO (07:27)
[2024-09-04 07:29] VITALS: BP 153/54
[2024-09-04] MEDS: ELIQUIS 2.5 MG PO (07:30)
[2024-09-04] MEDS: LOW STRENGTH ASPIRIN 81 MG PO (07:30)
[2024-09-04] MEDS: NOVOLOG FLEXPEN SC (07:31)
[2024-09-04] MEDS: IMDUR (EXTENDED RELEASE) 30 MG PO (07:33)
[2024-09-04] MEDS: NOVOLOG FLEXPEN-LOW RESISTANCE SC (08:34)
[2024-09-04] MEDS: LEXISCAN 0.4 MG IV (09:31)
--- NOTE | 2024-09-04 11:14 | CM ---
Addendum entered by Court Kolb 09/04/24 13:21:
Received VNA consult. Met with Mrs. Diaz to review VNA Services. She is agreeable to VNA Services. She has selected [facility]. She states she has had them in the past. Telephone callto [facility] to make the referral. Sent
referral. Medical work-up in progress. The discharge plan is to return home with her spouse and [facility] when medically stable.
Original Note:
Reviewed chart. Met with Mrs. Dailey to review discharge plans. She states prior to admission she resides with her spouse in an in-law suite attached to her daughters home. 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
She states prior to admission she ambulates in a four prong cane. She states she only has a four prong cane but her spouse uses a walker. She states they currently do not have any help in the home. She states she has a prescription plan and uses
[facility]. Medical work-up in progress. The discharge plan is to return home with her spouse when medically stable.
[2024-09-04 11:48] VITALS: BP 149/59
--- NOTE | 2024-09-04 12:04 | W.PN.CARDCBS ---
Today's Communication / Plan
-
Stress test unchanged compared to prior
Will ambulate in hallway and if no recurrent symptoms we will watch her carefully as an outpatient. She understands the plan.
If recurrent outpatient symptoms that remain atypical and not crescendo PET/CT rubidium nuclear stress test. If chest symptoms increase would then proceed to catheterization.
Imdur on discharge
Guideline directed medical treatment
As needed Lasix on discharge volume status is stable
If ambulates without problem she is stable from a cardiac point of view for discharge
Impression / Plan
-
PCP: Susie Jarquin PA-C
Frit Burner: Dr. Read
Impression:
Admission for chest pain on September 01, 2024
Heart failure admission May 2024
Indeterminate troponin
History of tachycardia induced cardiomyopathy
Recovered cardiomyopathy at May 2024 echo
Recent admission for Afib with RVR 03/12/24 until 03/13/24
Paroxysmal to persistent Afib
Intolerance of amiodarone, poor candidate for sotalol, dofetilide, 1C drugs
Chronic Eliquis OAC
s/p PVI 03/29/24
CM, EF newly (Feb 2024) reduced at 35%, suspect tachycardia mediated
EF improved to 40-45% by echo 03/30/24
Normalized by echocardiogram June 04, 2024
Orthostatic hypotension
CAD
s/p 3 mm Xience to prox LAD and bifurcation PTCA first diagonal and PTCA of OM1 superior and Inferior branches 02/2008
CKD 3b
Elevated LFTs
DM 2
HTN
Hyperlipidemia
h/o CVA 2013
Echo 04/01/2022: EF 55%, mild cLVH, stage II diastolic dysfunction, mild MAC, mild to moderate MR, mild AI
Echo 03/17/2024: EF 35%, moderate tricuspid regurgitation and elevated pulmonary artery pressures estimated at 55-60 mmHg.
Echo 03/30/2024: Urgent bedside study in the setting of rapid response, EF 40 to 45%, no evidence of pericardial effusion
Echo 06/04/2024: LVEF improved/normalized to 55 to 60%. There is possible basal septal akinesis and basal inferior hypokinesis.
Troponin values this admission:
0.014, 0.027, 0.013,<0.012
proBNP this admission:
3360
ECGs:
September 01, 2024: Sinus rhythm with PACs and inferior as well as lateral ST and T wave abnormalities, no significant change from March 30, 2024
September 02, 2024, sinus rhythm with inferior ST and T wave abnormalities as well as anterior lateral ST and T wave abnormalities, anterior T wave abnormalities are new
Chest x-ray September 01, 2024:
Mild interstitial pulmonary edema. Minimal left pleural effusion.
Recommend:
She has HFimpEF with LVEF improving/normalizing with rhythm control of atrial fibrillation since her ablation in March 2024
She was admitted with a component of acute on chronic HFimpEF given her symptoms, elevated proBNP and chest x-ray findings.
Currently volume status appears stable. She has diuresed well.
She received low-dose IV Lasix given her propensity towards hypotension/orthostasis and her weight is down to 145 pounds from 147 pounds yesterday and 152 pounds on day of admission.
Creatinine is 1.4 (1.7 prior)
She tells me that she has not had any shortness of breath.
On 09/03/2024 IV diuretic was discontinued. We will discharge her on Lasix 20 mg as needed for weight gain 3 pounds in 1 day or 5 pounds in 1 week and she may take twice weekly if needed.
She presented with chest discomfort which seems somewhat atypical given it was sharp, lasting a few minutes and then would come and go. No associated symptoms and no recurrence
Troponins have essentially been flat (0.014, 0.027, 0.013,<0.012) but there are ST and T wave abnormalities/changes on her ECG
-She has history of prior coronary disease as noted. Stress test today with Small, mild, partially reversible anterior apical and mid anterior defect that may be in part related to breast attenuation artifact but cannot exclude ischemia. Small,
mild, fixed inferior defect infarct versus soft tissue attenuation. In the setting of known inferior wall infarct. There is no change in stress test compared to prior.
- Plan at this time will be to ambulate her in the hallway and if no chest discomfort would feel comfortable with her being discharged on Imdur as she has been on this during hospital stay and following closely in the office. Could consider PET/CT
rubidium nuclear stress test if still a question of symptomatology that remains unclear. She feels comfortable with this plan. Certainly if crescendo symptoms plan would be for catheterization.
- Continue guideline directed medical therapy for coronary artery disease
She has history of persistent atrial fibrillation.
She underwent ablation in March 2024. She has been maintaining sinus rhythm. With maintenance of sinus rhythm LVEF has improved/normalized.
Maintain Eliquis 2.5 mg p.o. twice daily (dose reduction given age and renal function ) for atrial fibrillation related thromboembolic risk reduction.
Progress Note - Frit Burner
Subjective
Date of Service: September 04, 2024
Denies chest pain currently. Has chronic neck and back pain.
Objective
Labs:
09/04/24 03:38
09/04/24 03:38
Labs
Hgb 12.7 g/dL (12.0-16.0) 09/04/24 03:38
Hct 38.3 % (37.0-47.0) 09/04/24 03:38
Plt Count 154 10^3/uL (130-400) 09/04/24 03:38
Sodium 138 mmol/L (135-145) 09/04/24 03:38
Potassium 4.6 mmol/L (3.5-5.1) 09/04/24 03:38
BUN 39 mg/dl (7-17) H 09/04/24 03:38
Creatinine 1.4 mg/dL (0.6-1.0) H 09/04/24 03:38
Glucose 193 mg/dl (70-99) H 09/04/24 03:38
Troponins
09/01/24 09/01/24 09/02/24
16:56 20:15 03:20
Troponin I 0.014 0.027 D Cancelled
09/02/24 09/02/24
06:10 11:39
Troponin I 0.013 < 0.012
Vital Signs and I&O:
Vital Signs
Temp Pulse Resp BP Pulse Ox
97.6 F 58 18 137/62 98
09/04/24 11:47 09/04/24 11:47 09/04/24 11:47 09/04/24 03:30 09/04/24 11:47
Vital Signs
Temp Pulse Resp BP Pulse Ox
97.6 F 58 18 137/62 98
09/04/24 11:47 09/04/24 11:47 09/04/24 11:47 09/04/24 03:30 09/04/24 11:47
Intake & Output
09/02/24 09/03/24 09/04/24 09/05/24
06:59 06:59 06:59 06:59
Intake Total 720 / 720 240 / 240
Balance 720 / 720 240 / 240
Physical Exam
Physical Exam
General: Well developed, well nourished in NAD.
Heart: Non displaced PMI, RRR, no murmurs, No S3, S4, no rubs.
Lungs: Clear to auscultation bilaterally, no wheeze, rhonchi, rubs bilaterally,
normal expiratory phase.
Extremities: No clubbing, cyanosis or edema bilaterally.
Neuro: Grossly nonfocal, awake, alert and oriented x3.
[2024-09-04 12:47] LABS: Glucose - Point of Care 221 mg/dl (70-99)
[2024-09-04] MEDS: NOVOLOG FLEXPEN-LOW RESISTANCE 2 UNITS SC (12:55)
[2024-09-04] MEDS: NOVOLOG FLEXPEN 5 UNITS SC (12:55)
--- NOTE | 2024-09-04 12:58 | HFEDUCATE ---
Pt received this am with no c/o of any chest pain or sob. Room air sat 97%. Pt returned from the stress test. Ambulated in the gracia with the nurse. Pt tolerated well, gait steady and denied any chest pain or sob after ambulating.
--- NOTE | 2024-09-04 14:09 | W.DS.TRANS ---
DC Summary - Daub Color Mixer
-
Discharge Instructions:
Sleep Apnea Risk Low
Discharge Diagnosis/Procedures Chest pain, CAD
Diet 2 Gram Sodium,Restrict fluids to 64 oz
Bathing Restrictions None
Other Services VN
Specialty Instructions Weigh Daily
Instructions:
Stand-Alone Forms:
Changes to Home Medications: Yes
Discharge Medications:
DC Medications w/original date entered in [facility]
ascorbic acid (vitamin C) 250 mg tablet 250 mg PO DAILY Supplement 01/08/18
cyanocobalamin (vitamin B-12) 1,000 mcg tablet 1,000 mcg PO DAILY Supplement 01/08/18
cholecalciferol (vitamin D3) 25 mcg (1,000 unit) tablet 25 mcg PO Q OTHER DAY Supplement 01/14/21
rosuvastatin 10 mg tablet 10 mg PO HS High Cholesterol 01/14/21
levothyroxine 75 mcg tablet 75 mcg PO DAILY Thyroid 12/16/21
apixaban 2.5 mg tablet (Eliquis) 2.5 mg PO BID Blood Clot Prevention/Tx 03/30/22
carvedilol 3.125 mg tablet 3.125 mg PO BID 30 days #60 tabs 03/30/24
insulin aspart U-100 100 unit/mL (3 mL) subcutaneous pen (Novolog FlexPen U-100 Insulin aspart) 5 unit SC AC Diabetes 09/01/24
insulin glargine 100 unit/mL (3 mL) subcutaneous pen (Lantus Solostar U-100 Insulin) 11 unit SC HS Diabetes 09/01/24
aspirin 81 mg chewable tablet 81 mg PO DAILY Heart disease/condition #30 tabs 09/04/24
furosemide 20 mg tablet (Lasix) 20 mg PO MOWE PRN weight gain or CHF #8 tabs 09/04/24
isosorbide mononitrate 30 mg tablet,extended release 24 hr 30 mg PO DAILY Heart disease/condition #30 tabs 09/04/24
Home Medication Changes
Aspirin, Imdur, Lasix initiated over this admission
Pending Results: No
--- NOTE | 2024-09-04 15:30 | PTCARENOTE ---
Pt discharged to home with her daughter
--- NOTE | 2024-09-04 15:45 | SUR.OPER ---
Pt discharged to home with her daughter. Discharge instructions given and reviewed with pt and her daughter. All questions answered and both verbalized complete understanding.
--- NOTE | 2024-09-05 09:39 | PN.CDI ---
CDI
- -
CDI:
Physician Documentation Request
Admit Date: 09/01/24 23:32
Dear Doctor Deena,
Please review the following and provide your response in the progress notes.
Clinical Indicators:
The diagnosis of acute on chronic HFpEF was documented on 09/03 PN but is not consistently noted in subsequent documentation.
- 09/03 PN 'Acute on chronic HFrEF'
- 09/04 Cardiology 'She was admitted with a component of acute on chronic HFimpEF given her symptoms, elevated proBNP and chest x-ray findings'
- 'She has diuresed well'
- 09/01 CXR 'MILD INTERSTITIAL and ALVEOLAR CARDIOGENIC PULMONARY EDEMA'
- 09/04 DC Summary added Lasix and Imdur
- 09/04 Stress test EF 61%
- proBNP 3360
- 20mg IV Lasix
Please provide further specificity regarding the most likely type and acuity of CHF you are evaluating, treating or monitoring.
Acute on chronic HFpEF
Acute HFpEF
Other (please specify)
Use of terms such as suspected, likely, concern for, or probable (associated with a specific diagnosis that is being evaluated, monitored, or treated as if it exists) are acceptable and can be coded in the inpatient setting, when documented at the
time of discharge.
Thank you,
Moni Reyes RN
CDI Specialist
Please use your independent medical judgment in providing your response.
--- NOTE | 2024-09-05 09:48 | PN.CDI ---
CDI
- -
CDI:
Physician Documentation Request
Admit Date: 09/01/24 23:32
Dear Doctor Deena,
Please review the following and provide your response in the progress notes.
Clinical Indicators:
- 09/01 H&P 'CKD stage IIIb creatinine 1.4'
- 09/02 IV Lasix given
-
Laboratory Tests
09/01/24 09/03/24 09/04/24
16:56 03:56 03:38
Creatinine 1.4 H 1.7 H 1.4 H
eGFR 37.10 29.39 37.10
Please clarify which of the following accurately represents the patient's renal status:
OBIE on CKD 3b
CKD 3b
Other (please specify)
Criteria for OBIE*
1 Increase in serum creatinine by > or = to 0.3 mg/dL (> or = to 26.5 micromol/L) within 48 hours, OR
2 Increase in serum creatinine to > or = to 1.5 times baseline, which is known or presumed to have occurred within 7 days, OR
3 Urine volume < 0.5 nL/kg/hour for six hours
Stages of Chronic Kidney Disease*
Level Description GFR
G1 Normal or High >90
G2 Mildly decreased 60-89
G3a Mildly to moderately decreased 45-59
G3b Moderately to severely decreased 30-44
G4 Severely decreased 15-29
G5 Kidney failure <15
Use of terms such as suspected, likely, concern for, or probable (associated with a specific diagnosis that is being evaluated, monitored, or treated as if it exists) are acceptable and can be coded in the inpatient setting, when documented at the
time of discharge.
Thank you,
Moni Reyes RN
CDI Specialist
Please use your independent medical judgment in providing your response.
*Source: Kidney Disease: Improving Global Outcomes (KDIGO) 2012
== END 2024-09-04 16:15 | disposition home health service (06) | DRG 313 ==
LOC: IVU 23:32
PROVIDERS: Emergency Medicine; Hospitalist; Internal Medicine Cardiovascular Disease; Physician Assistant; Registered Nurse; ADMITTING PHYSICIAN Internal Medicine; ATTENDING PHYSICIAN Internal Medicine; CONSULT PHYSICIAN Internal Medicine Cardiovascular Disease; EMERGENCY PHYSICIAN Emergency Medicine; FAMILY PHYSICIAN Student in an Organized Health Care Education/Training Program
PROC: 3E033HZ Introduction of Radioactive Substance into Peripheral Vein, Percutaneous Approach (ICD-10-PCS; 2024-09-04)
PROC: 4A12XM4 Monitoring of Cardiac Stress, External Approach (ICD-10-PCS; 2024-09-04)
DX: R07.9 Chest pain, unspecified (principal); I50.23 Acute on chronic systolic (congestive) heart failure; I13.0 Hypertensive heart and chronic kidney disease with heart failure and stage 1 through stage 4 chronic kidney disease, or unspecified chronic kidney disease; I48.19 Other persistent atrial fibrillation; N25.81 Secondary hyperparathyroidism of renal origin; N18.32 Chronic kidney disease, stage 3b; E11.22 Type 2 diabetes mellitus with diabetic chronic kidney disease; I25.10 Atherosclerotic heart disease of native coronary artery without angina pectoris; Z85.6 Personal history of leukemia; E03.9 Hypothyroidism, unspecified; Z86.73 Personal history of transient ischemic attack (TIA), and cerebral infarction without residual deficits; Z88.8 Allergy status to other drugs, medicaments and biological substances; Z79.4 Long term (current) use of insulin; Z79.890 Hormone replacement therapy; Z79.01 Long term (current) use of anticoagulants; Z79.899 Other long term (current) drug therapy; Z82.49 Family history of ischemic heart disease and other diseases of the circulatory system; Z95.5 Presence of coronary angioplasty implant and graft; D72.829 Elevated white blood cell count, unspecified; E78.00 Pure hypercholesterolemia, unspecified; I27.21 Secondary pulmonary arterial hypertension
CPT/HCPCS: 71046; 78452; 80048; 80053; 80061; 82962; 83036; 83735; 83880; 84484; 85025; 85027; 93005; 93017; 96372; 99285; A9500; J2785

== ENCOUNTER → 2024-09-13 16:33 | Outpatient (REF) | payer MEDICARE, BC, SELFPAY ==
[2024-09-13 17:32] LABS: Hematocrit 40.8 % (37.0-47.0); Hemoglobin 13.3 g/dL (12.0-16.0); Mean Corp Hgb Conc. 32.6 g/dL (33.0-37.0); Mean Corpuscular Volume 90.5 fL (81.0-99.0); Platelet Count 162 10^3/uL (130-400); Red Cell Dist. Width 14.3 % (11.5-14.5)
[2024-09-13 17:47] LABS: ALT (SGPT) 18 U/L (0-35); AST (SGOT) 19 U/L (14-36); Albumin 4.6 g/dl (3.5-5.0); Alkaline Phosphatase 93 U/L (38-126); Blood Urea Nitrogen 54 mg/dl (7-17); Calcium 9.5 mg/dl (8.4-10.2); Carbon Dioxide 23 mmol/L (22-30); Chloride 102 mmol/L (98-107); Glucose 290 mg/dl (70-99); Potassium 4.8 mmol/L (3.5-5.1); Sodium 136 mmol/L (135-145); Total Protein 7.4 g/dl (6.3-8.2); eGFR 37.10
[2024-09-13 17:52] LABS: Nucleated Red Blood Cells % 0 %
[2024-09-13 18:17] LABS: TSH 0.25 uIU/ml (0.47-4.68)
== END ==
LOC: REG 16:33
PROVIDERS: ATTENDING PHYSICIAN Family Medicine; FAMILY PHYSICIAN Student in an Organized Health Care Education/Training Program; OTHER PHYSICIAN Physician Assistant
DX: E11.65 Type 2 diabetes mellitus with hyperglycemia (principal); E03.9 Hypothyroidism, unspecified; I50.20 Unspecified systolic (congestive) heart failure
CPT/HCPCS: 36415; 80053; 84439; 84443; 85025

== ENCOUNTER → 2024-10-03 16:21 | Outpatient (REF) | payer MEDICARE, BC, SELFPAY ==
[2024-10-03 18:25] LABS: ALT (SGPT) 17 U/L (0-35); AST (SGOT) 18 U/L (14-36); Albumin 3.8 g/dl (3.5-5.0); Alkaline Phosphatase 87 U/L (38-126); Blood Urea Nitrogen 45 mg/dl (7-17); Calcium 9.2 mg/dl (8.4-10.2); Carbon Dioxide 26 mmol/L (22-30); Chloride 101 mmol/L (98-107); Glucose 338 mg/dl (70-99); Potassium 4.6 mmol/L (3.5-5.1); Sodium 132 mmol/L (135-145); Total Protein 6.1 g/dl (6.3-8.2); eGFR 34.15
== END ==
LOC: REG 16:21
PROVIDERS: ATTENDING PHYSICIAN Urology; FAMILY PHYSICIAN Student in an Organized Health Care Education/Training Program
DX: N18.30 Chronic kidney disease, stage 3 unspecified (principal)
CPT/HCPCS: 36415; 80053

== ENCOUNTER → 2024-10-23 11:57 | Outpatient (REF) | payer MEDICARE, BC, SELFPAY | LOC: PAVMRI 11:57 | PROVIDERS: ATTENDING PHYSICIAN Physical Medicine & Rehabilitation; FAMILY PHYSICIAN Student in an Organized Health Care Education/Training Program | DX: M54.16 Radiculopathy, lumbar region (principal) | CPT/HCPCS: 72148 ==

== ENCOUNTER 2024-12-16 18:31 | Inpatient (IN) | payer MEDICARE, BC, SELFPAY ==
[2024-12-16] VITALS (9 sets, daily range): BP systolic 100–145; BP diastolic 64–98; BMI 23.8
[2024-12-16] MEDS: MORPHINE SULFATE 2 MG IV (15:20)
[2024-12-16 15:40] LABS: Hematocrit 38.3 % (37.0-47.0); Hemoglobin 12.7 g/dL (12.0-16.0); Mean Corp Hgb Conc. 33.2 g/dL (33.0-37.0); Mean Corpuscular Volume 94.1 fL (81.0-99.0); Nucleated Red Blood Cells % 0 %; Platelet Count 131 10^3/uL (130-400); Red Cell Dist. Width 16.6 % (11.5-14.5)
[2024-12-16 15:59] LABS: Urine Character Slightly Cloudy (Clear)
[2024-12-16 16:03] LABS: Blood Urea Nitrogen 54 mg/dl (7-17); Calcium 8.9 mg/dl (8.4-10.2); Carbon Dioxide 21 mmol/L (22-30); Chloride 105 mmol/L (98-107); Glucose 246 mg/dl (70-99); Potassium 4.6 mmol/L (3.5-5.1); Sodium 137 mmol/L (135-145); eGFR 21.57
[2024-12-16 16:27] LABS: Urine Squamous Cell 0-2 /LPF (Few); Urine Urothelial Cell 0-2 /LPF (FEW)
[2024-12-16 16:32] LABS: Urine White Cell 30-40 /HPF (0-5)
[2024-12-16] MEDS: ROCEPHIN 1000 MG IV (16:51)
--- NOTE | 2024-12-16 16:52 | ED.GENMED ---
History of Present Illness
<Haylie Camilo DO - Last Filed: 12/16/24 16:54>
General
Chief Complaint: Back Pain
Time Seen by Provider: 12/16/24 13:54
<Disha Olmos PA-C - Last Filed: 12/16/24 17:06>
General
Source: patient and family
Exam Limitations: none
History of Present Illness
History of Present Illness:
Patient is an 84-year-old female with past medical history of atrial fibrillation currently anticoagulated on Eliquis, CAD status postcardiac stent, hypertension, hyperlipidemia, insulin-dependent diabetes, CKD as well as chronic back pain secondary
to degenerative disc disease who presents to the emergency department for evaluation of left thoracic back pain. Patient reports that symptoms started yesterday but worsened today. Patient is usually hesitant to come to come to the emergency
department but the pain got severe and so she called her daughter and asked her to bring her here. Patient denies any fevers or chills. Patient denies chest pain or shortness of breath. Patient denies abdominal pain, nausea, vomiting. Patient
denies urinary symptoms such as dysuria or hematuria. Patient has been taking Tylenol and Salonpas at home which typically helps with her back pain but it does not seem to be helping this time. Patient's daughter is concerned as the patient's pain
is typically in the center of her back and this is more to the left, she is worried about the patient's kidneys and whether this could be contributing to the patient's pain today. 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 She reports that she does not like to take narcotics because she is concerned about her ability to care for him while she is under the influence of stronger pain medication.
Past History
<Haylie Camilo DO - Last Filed: 12/16/24 16:54>
Past History
ED Past Medical History: Arrthythmia, CAD, HTN, Hypercholesterolemia, NIDDM and Hypothyroidism
ED Past Surgical History: Cardiac (Cath LAD stent)
Social History
Tobacco: Non-smoker
Alcohol: None
Drug: None
Personal:
Living: with family
Employment: Retired
Family History
Family History: CAD (MOM-ID age 50)
Review of Systems
<Disha Olmos PA-C - Last Filed: 12/16/24 17:06>
Review of Systems
All Other Systems: Not applicable
Constitutional: Reports no symptoms
EENT: Reports no symptoms
Respiratory: Reports no symptoms
Cardiac: Reports no symptoms
ABD/GI: Reports no symptoms
: Reports no symptoms
Musculoskeletal: Reports back pain (left thoracic)
Skin: Reports no symptoms
Neurological: Reports no symptoms
Endocrine: Reports no symptoms
Hematologic/Lymphatic: Reports no symptoms
Psychiatric: Reports no symptoms
Phy Exam
<Disha Olmos PA-C - Last Filed: 12/16/24 17:06>
General Physical Exam
General Presentation: well appearing and no apparent distress
General Skin: warm and dry
General Habitus: normal
General Mental: alert
General Hydration: appears well hydrated
ENT Exam
ENT Exam: EOMI, pharynx normal, neck supple and normocephalic
Eye Exam
Eye Exam: PERRL, cornea clear and conjunctiva normal
Cardiovascular Exam
Cardiovascular Exam: regular rate/rhythm, no edema, no murmur and normal peripheral pulses
Pulmonary Exam
Pulmonary Exam: lungs clear, no respiratory distress, no rales, no crackles, no rhonchi, no stridor, no wheezing and no cough
Gastrointestinal Exam
Gastrointestinal Exam: normal bowel sounds, non tender, soft, no organomegaly, no pulsatile mass and non distended
Neurological Exam
Neurological Exam: alert, oriented x3, no motor deficits and speech normal
Musculoskeletal Exam
Musculoskeletal Exam: full ROM, back pain (left lateral thoracic) and no edema
Skin Exam
Skin Exam: normal color, warm/dry, no rash and no petechia
Psychiatric Exam
Psychiatric Exam: normal mood/affect
Course
Margolt;Haylie Camilo, DO - Last Filed: 12/16/24 16:54>
Orders/Labs/Results
Orders:
Orders
12/16/24 12:40
ECG [Electrocardiogram (*1)] Urgent
Reason for Study: Atrial Fibrillation
EKG- Treatment ONCE
12/16/24 15:01
Morphine Sulfate 2 mg IV NOW STA
CR Chest - 2 Views Urgent
Comment:
Reason For Exam: left thoracic back pain
12/16/24 15:05
Basic Metabolic Panel Urgent
Complete Blood Count/With Diff Urgent
Urinalysis Urgent
Date Specimen was Collected: 12/16/24
Time Specimen was Collected: 15:03
Urine Microscopic Urgent
Date Specimen was Collected: 12/16/24
Time Specimen was Collected: 15:03
12/16/24 16:37
CefTRIAXone [Rocephin] 1,000 mg IV NOW STA
Abnormal Lab Results
12/16/24
15:05
WBC 14.0 H 10^3/uL
(4.8-10.8)
RBC 4.07 L 10^6/uL
(4.20-5.40)
MCH 31.2 H pg
(27.0-31.0)
RDW 16.6 H %
(11.5-14.5)
MPV 10.8 H fL
(7.4-10.4)
Abs Immat Gran (auto) 0.1 H 10^3/uL
(0-0.05)
Absolute Neuts (auto) 8.6 H 10^3/uL
(1.4-6.5)
Absolute Lymphs (auto) 4.4 H 10^3/uL
(1.2-3.4)
Absolute Monos (auto) 0.8 H 10^3/uL
(0.1-0.6)
Carbon Dioxide 21 L mmol/L
(22-30)
BUN 54 H mg/dl
(7-17)
Creatinine 2.2 H mg/dL
(0.6-1.0)
Glucose 246 H mg/dl
(70-99)
Urine Ketones 1+ A
(Negative)
Urine Occult Blood 1+ A
(Negative)
Ur Leukocyte Esterase 3+ A
(Negative)
Urine RBC 7-10 A /HPF
(0-2)
Urine WBC 30-40 A /HPF
(0-5)
Urine Bacteria Moderate A
(Negative)
Urine Albumin 3+ A
(Neg - Trace)
12/16/24 15:05
12/16/24 15:05
Vital Signs
Initial and Last Documented VS:
Initial Vital Signs
Temp Pulse Resp BP Pulse Ox
97.5 F 116 22 116/78 99
12/16/24 12:36 12/16/24 12:36 12/16/24 12:36 12/16/24 12:36 12/16/24 12:36
Last Documented Vital Signs
Temp Pulse Resp BP Pulse Ox
97.5 F 106 15 113/81 99
12/16/24 12:36 12/16/24 15:30 12/16/24 15:30 12/16/24 15:30 12/16/24 16:54
<Disha Olmos PA-C - Last Filed: 12/16/24 17:06>
Orders/Labs/Results
Orders:
Orders
12/16/24 12:40
ECG [Electrocardiogram (*1)] Urgent
Reason for Study: Atrial Fibrillation
EKG- Treatment ONCE
12/16/24 15:01
Morphine Sulfate 2 mg IV NOW STA
CR Chest - 2 Views Urgent
Comment:
Reason For Exam: left thoracic back pain
12/16/24 15:05
Basic Metabolic Panel Urgent
Complete Blood Count/With Diff Urgent
Urinalysis Urgent
Date Specimen was Collected: 12/16/24
Time Specimen was Collected: 15:03
Urine Microscopic Urgent
Date Specimen was Collected: 12/16/24
Time Specimen was Collected: 15:03
12/16/24 16:37
CefTRIAXone [Rocephin] 1,000 mg IV NOW STA
Abnormal Lab Results
12/16/24
15:05
WBC 14.0 H 10^3/uL
(4.8-10.8)
RBC 4.07 L 10^6/uL
(4.20-5.40)
MCH 31.2 H pg
(27.0-31.0)
RDW 16.6 H %
(11.5-14.5)
MPV 10.8 H fL
(7.4-10.4)
Abs Immat Gran (auto) 0.1 H 10^3/uL
(0-0.05)
Absolute Neuts (auto) 8.6 H 10^3/uL
(1.4-6.5)
Absolute Lymphs (auto) 4.4 H 10^3/uL
(1.2-3.4)
Absolute Monos (auto) 0.8 H 10^3/uL
(0.1-0.6)
Carbon Dioxide 21 L mmol/L
(22-30)
BUN 54 H mg/dl
(7-17)
Creatinine 2.2 H mg/dL
(0.6-1.0)
Glucose 246 H mg/dl
(70-99)
Urine Ketones 1+ A
(Negative)
Urine Occult Blood 1+ A
(Negative)
Ur Leukocyte Esterase 3+ A
(Negative)
Urine RBC 7-10 A /HPF
(0-2)
Urine WBC 30-40 A /HPF
(0-5)
Urine Bacteria Moderate A
(Negative)
Urine Albumin 3+ A
(Neg - Trace)
12/16/24 15:05
12/16/24 15:05
Vital Signs
Initial and Last Documented VS:
Initial Vital Signs
Temp Pulse Resp BP Pulse Ox
97.5 F 116 22 116/78 99
12/16/24 12:36 12/16/24 12:36 12/16/24 12:36 12/16/24 12:36 12/16/24 12:36
Last Documented Vital Signs
Temp Pulse Resp BP Pulse Ox
97.5 F 106 15 113/81 99
12/16/24 12:36 12/16/24 15:30 12/16/24 15:30 12/16/24 15:30 12/16/24 16:54
<Haylie Camilo DO - Last Filed: 12/16/24 16:54>
*Pulse Oximetry
SaO2: 99
Oxygen Mode of Delivery: Room air
<Disha Olmos PA-C - Last Filed: 12/16/24 17:06>
*Pulse Oximetry
Patient hypoxic: no
*Critical Care Note
Total Time (30-74mins, 75-104mins- exclusive of procedures): Not Applicable
<Disha Olmos PA-C - Last Filed: 12/16/24 17:06>
Update Note
Update Note:
Patient is an 84-year-old female with multiple comorbidities including chronic back pain who presents to the emergency department for evaluation of left lateral thoracic back pain which is a little different than her usual in location and in the
fact that it is typically well-controlled with Tylenol or topical lidocaine. On arrival, patient's vital signs are stable, she is afebrile. On examination, the patient is lying in the position on her left side as she reports that this is the
position of greatest comfort, she is in no acute distress, she does have reproducible tenderness over the left lateral thoracic region, she has a benign abdomen. Labs were obtained and are notable for a leukocytosis to 14 with a left shift.
Patient also has a mild acute kidney injury with a creatinine of 2.2, baseline is closer to 1.5. Finally, the patient's urinalysis is consistent with infection. Chest x-ray demonstrates no acute disease process. Patient was given morphine for her
pain with improvement. Patient also given a gram of ceftriaxone for her urinary tract infection. Will admit for continued treatment of her urinary tract infection as well as treatment of her acute kidney injury and additional pain control for her
back pain. Plan was discussed with the patient and her daughter by the ED attending, they expressed understanding of the plan and agreed. Patient signed out to the hospitalist without complication.
ED Attending Note
<Haylie Camilo DO - Last Filed: 12/16/24 16:54>
ED Attending Note
Patient seen and examined by attending physician: Yes
I performed the substantive portion of visit, reviewed & personally made and approve the management plan that is documented in note by myself or LUIS EDUARDO.: Yes
I performed a history and physical exam of patient and discussed management with resident, I reviewed resident's note and agree with documented findings and plan of care.: Yes
ED Attending Note:
84-year-old female brought to the ER by daughter for evaluation of exacerbation of her chronic back pain. 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 She admits to having poor
appetite recently. She also reports significant fatigue. Vital signs reviewed, patient is awake, alert, appears no acute distress, mucous membranes moist, conjunctiva pink, GCS is 15, moving all extremities symmetrically without focal deficit. I
reviewed all test results with physician clinical assistant, patient and daughter present at bedside. I discussed with them benefit of admission for treatment of urinary tract infection, acute kidney injury and development of a more appropriate pain
management strategy for her back pain which has been limiting her function on a daily basis. They expressed understanding of plan and have no questions at the current time. Will discuss with hospitalist
-
Portions of this chart may have been created with voice recognition software.� Occasional wrong word or��sound alike� substitutions may have occurred due to the inherent limitations of voice recognition software.
Discharge Plan
Departure
Patient Disposition: Admit
Date of Disposition: 12/16/24
Time of Disposition: 16:59
Presentation/result/management discussed w/ accepting MD/DO: Hospitalist
Condition: Good
Covid-19: Not Applicable
Discharge Problem:
Urinary tract infection, Acute kidney injury, Acute left-sided thoracic back pain
Prescriptions:
No Action
cyanocobalamin (vitamin B-12) 1,000 MCG tablet
1,000 mcg PO DAILY
ascorbic acid (vitamin C) 250 MG tablet
250 mg PO DAILY
rosuvastatin 10 MG tablet
10 mg PO HS
cholecalciferol (vitamin D3) 1,000 UNITS tablet
25 mcg PO Q OTHER DAY
levothyroxine 75 mcg Tablet
75 mcg PO DAILY
Eliquis 2.5 mg tablet
2.5 mg PO BID
carvedilol 3.125 mg Tablet
3.125 mg PO BID 30 Days Qty: 60 0RF
insulin aspart U-100 [Novolog FlexPen U-100 Insulin] 100 unit/mL (3 mL) insulin pen
5 unit SC AC
insulin glargine [Lantus Solostar U-100 Insulin] 100 unit/mL (3 mL) insulin pen
11 unit SC HS
furosemide [Lasix] 20 mg tablet
20 mg PO MOWE PRN (Reason: weight gain or CHF) Qty: 8 6RF
isosorbide mononitrate 30 mg Tablet Extended Release 24 Hr
30 mg PO DAILY Qty: 30 11RF
aspirin 81 mg Tablet,Chewable
81 mg PO DAILY Qty: 30 6RF
Referrals:
Unique Vega DO [Family Provider, Family Practice]
Interventions
Interventions:
*Risk Screen - Suicide Last Done: 12/16/24 12:36
*General Assessment Last Done: 12/16/24 12:36
*Neglect/Abuse Screening Last Done: 12/16/24 12:36
*ED- Fall Risk Assessment Last Done: 12/16/24 13:38
ED-Musculoskeletal Assessment Last Done: 12/16/24 13:38
Discharge Date and Time
Print Language: MONTSERRATIAN
--- NOTE | 2024-12-16 17:12 | HPS.HSE ---
Family Physician
-
Family Physician: Unique Vega
Chief Complaint
-
L flank pain
History of Present Illness
HPI: 84-year-old female with past medical history of coronary artery disease s/p PCI, paroxysmal atrial fibrillation on Eliquis, cardiomyopathy with recovered EF at 35%, IDDM, hypertension, CKD stage 3, chronic back pain secondary to degenerative
disc disease; p/w acute on chronic left lumbar pain.
She was taking Tylenol and Salonpas at home which did not help.
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
She reports that she does not like to take narcotics because she is concerned about her ability to care for him while she is under the influence of stronger pain medication.
Medical History
Past Medical History
Past Medical History: Reports Other
Additional Past Medical History:
Hypothyroidism
TIA
Hypertension
CKD
A-fib
Type 2 diabetes
ischemic cardiomyopathy
Coronary artery disease
Hyperlipidemia
Past Surgical History: Reports Other
Additional Past Surgical History:
Cardiac stent
Cardioversion
Social History
Tobacco: Non-smoker
Alcohol: None
Drug: None
Living: With Family
Family History
Family History: Not pertinent
Allergies / Home Medications
Allergies reflects when Allergies were last updated in [facility].
Home Medications with original date entered in [facility]
Allergy/Medication List:
Allergies
Allergy/AdvReac Type Severity Reaction Status Date / Time
semaglutide (From Ozempic) Allergy Itching Verified 12/16/24 12:36
Home Medications
ascorbic acid (vitamin C) 250 mg tablet 250 mg PO DAILY Supplement 01/08/18
cyanocobalamin (vitamin B-12) 1,000 mcg tablet 1,000 mcg PO DAILY Supplement 01/08/18
cholecalciferol (vitamin D3) 25 mcg (1,000 unit) tablet 25 mcg PO Q OTHER DAY Supplement 01/14/21
rosuvastatin 10 mg tablet 10 mg PO HS High Cholesterol 01/14/21
levothyroxine 75 mcg tablet 75 mcg PO DAILY Thyroid 12/16/21
apixaban 2.5 mg tablet (Eliquis) 2.5 mg PO BID Blood Clot Prevention/Tx 03/30/22
carvedilol 3.125 mg tablet 3.125 mg PO BID 30 days #60 tabs 03/30/24
insulin aspart U-100 100 unit/mL (3 mL) subcutaneous pen (Novolog FlexPen U-100 Insulin aspart) 5 unit SC AC Diabetes 09/01/24
insulin glargine 100 unit/mL (3 mL) subcutaneous pen (Lantus Solostar U-100 Insulin) 11 unit SC HS Diabetes 09/01/24
aspirin 81 mg chewable tablet 81 mg PO DAILY Heart disease/condition #30 tabs 09/04/24
furosemide 20 mg tablet (Lasix) 20 mg PO MOWE PRN weight gain or CHF #8 tabs 09/04/24
isosorbide mononitrate 30 mg tablet,extended release 24 hr 30 mg PO DAILY Heart disease/condition #30 tabs 09/04/24
Review of Systems
-
Musculoskeletal: Reports Joint Pain (L flank pain)
Physical Exam
Vital Signs
Vital Signs
Temp Pulse Resp BP Pulse Ox
36.4 C 106 15 113/81 99
12/16/24 12:36 12/16/24 15:30 12/16/24 15:30 12/16/24 15:30 12/16/24 16:54
Physical Exam
General: Well Developed, Well Nourished, No Apparent Distress, Comfortable and Conversant
HEENT: NormoCephalic, Moist mucous membranes and Atraumatic
Respiratory: Clear and Non Labored Respirations; No Accessory Resp Muscle Use
Cardiac: S1/S2 and Regular Rhythm; No Murmur or Rub
GI: Soft, Non Tender, Non Distended and Normal Bowel Sounds; No Organomegaly
Rectal: Deferred by Provider
Musculoskeletal: No Clubbing, No Cyanosis and No Edema
Skin: No Rash
Neuro: Awake and Alert
Psych: Calm and Intact Judgment/Insight
Laboratory Results
-
12/16/24 15:05
12/16/24 15:05
Data Reviewed
-
Lab Data: Labs Reviewed by me
Impression/Plan
-
HPI: 84-year-old female with past medical history of coronary artery disease s/p PCI, paroxysmal atrial fibrillation on Eliquis, cardiomyopathy with recovered EF at 35%, IDDM, hypertension, CKD stage 3, chronic back pain secondary to degenerative
disc disease; p/w acute on chronic left lumbar pain.
She was taking Tylenol and Salonpas at home which did not help.
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
She reports that she does not like to take narcotics because she is concerned about her ability to care for him while she is under the influence of stronger pain medication.
A/P:
# L sided flank pain
# Possible sepsis POA 2/2 UTI
[employer] on Tylenol and Salonpas without relieve
Cont Tylenol ATC and PRN, low dose IV morphine for severe breakthrough pain
Check CT AP without contrast
Follow urine culture, check blood cultures x2
s/p ceftriaxone in ED, cont ceftriaxone for now
NPO for now with N/V, gentle IVF while NPO
# OBIE on CKD stage 3
SCr 2.2 on admission, from baseline 1.5
gentle IVF
Monitor SCr
Other medical conditions:
# History of CAD s/p PCI
# Paroxysmal to persistent atrial fibrillation status post ablation in the past
Cont [employer] Eliquis
rate control with Coreg
# IDDM
Cont [employer] insulin: decrease Lantus from 11 to 5 units HS with current NPO status
Hold [employer] aspart 5 units AC
ISS coverage
# Hyperlipidemia
Crestor
# Hypothyroidism
levothyroxine 75 mcg p.o. daily
# History of TIA/CVA
On Eliquis and statin
DVT prophylaxis: Eliquis
CODE STATUS: Full code
DW daughter at bedside
--- NOTE | 2024-12-16 20:30 | PTCARENOTE ---
Pt transported from ED to 3W via stretcher. Pt 1 assist from stretcher to bed, AAOX3/able to make needs known. Oriented to room and call vasquez within reach. Pt vitals WNL, on TELE #27. Pt pleasant and cooperative, plan of care ongoing.
[2024-12-16 20:40] LABS: Glucose - Point of Care 245 mg/dl (70-99)
[2024-12-16] MEDS: ELIQUIS 2.5 MG PO (21:25)
[2024-12-16] MEDS: COREG 3.125 MG PO (21:25)
[2024-12-16] MEDS: NSS 1000 IV (21:26)
[2024-12-16] MEDS: NSS (PRESERVATIVE FREE) 10 ML IV (21:27)
[2024-12-16] MEDS: PROTONIX IV 40 MG IV (21:28)
[2024-12-16] MEDS: LANTUS 0.05 UNITS SC (22:25)
[2024-12-16] MEDS: CRESTOR 10 MG PO (22:55)
[2024-12-17 00:32] LABS: Glucose - Point of Care 225 mg/dl (70-99)
[2024-12-17] MEDS: NOVOLOG FLEXPEN-LOW RESISTANCE 2 UNITS SC ×2 (00:44→16:08)
[2024-12-17 01:14] LABS: Urine Character Clear (Clear)
[2024-12-17 01:21] LABS: Urine Red Blood Cell 0-2 /HPF (0-2)
[2024-12-17 01:22] LABS: Urine White Cell 90-100 /HPF (0-5); Urine White Cell Cast 0-2 /LPF
[2024-12-17 03:00] VITALS: BP 139/75
[2024-12-17 06:00] VITALS: BMI 23.4
[2024-12-17] MEDS: SYNTHROID PO (06:06)
[2024-12-17 06:14] LABS: Glucose - Point of Care 177 mg/dl (70-99)
[2024-12-17 06:15] LABS: Hematocrit 37.6 % (37.0-47.0); Hemoglobin 12.1 g/dL (12.0-16.0); Mean Corp Hgb Conc. 32.2 g/dL (33.0-37.0); Mean Corpuscular Volume 93.3 fL (81.0-99.0); Platelet Count 132 10^3/uL (130-400); Red Cell Dist. Width 16.8 % (11.5-14.5)
[2024-12-17] MEDS: MORPHINE SULFATE 1 MG IV (06:21)
[2024-12-17] MEDS: NOVOLOG FLEXPEN-LOW RESISTANCE 1 UNITS SC ×2 (06:23→12:33)
[2024-12-17 07:16] VITALS: BP 129/83
[2024-12-17] MEDS: COREG 6.25 MG PO (08:50)
[2024-12-17] MEDS: IMDUR (EXTENDED RELEASE) 30 MG PO (08:50)
[2024-12-17] MEDS: ELIQUIS 2.5 MG PO (08:50)
[2024-12-17] MEDS: PACERONE 200 MG PO ×2 (08:51→20:17)
[2024-12-17] MEDS: PROTONIX IV 40 MG IV (08:51)
[2024-12-17] MEDS: LOW STRENGTH ASPIRIN 81 MG PO (08:53)
[2024-12-17] MEDS: NSS (PRESERVATIVE FREE) 10 ML IV (08:53)
[2024-12-17 09:00] LABS: Blood Urea Nitrogen 48 mg/dl (7-17); Calcium 8.7 mg/dl (8.4-10.2); Carbon Dioxide 22 mmol/L (22-30); Chloride 108 mmol/L (98-107); Estimated Creatinine Clearance 20 ml/min; Glucose 189 mg/dl (70-99); Potassium 5.4 mmol/L (3.5-5.1); Sodium 138 mmol/L (135-145); eGFR 24.18
[2024-12-17 11:15] VITALS: BP 134/77
--- NOTE | 2024-12-17 11:26 | W.PN.HOSP.TC ---
Today's Communication/Plan
-
see A/P
Assessment / Plan
Assessment / Plan
HPI: 84-year-old female with past medical history of coronary artery disease s/p PCI, paroxysmal atrial fibrillation on Eliquis, cardiomyopathy with recovered EF at 35%, IDDM, hypertension, CKD stage 3, chronic back pain secondary to degenerative
disc disease; p/w acute on chronic left lumbar pain.
She was taking Tylenol and Salonpas at home which did not help.
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
She reports that she does not like to take narcotics because she is concerned about her ability to care for him while she is under the influence of stronger pain medication.
A/P:
# L sided flank pain on admission- resolved
# Possible sepsis POA 2/2 UTI vs acute dinorah
[employer] on Tylenol and Salonpas without relieve
Pain control with Tylenol PRN, PO oxycodone PRN (pt wants to avoid IV narcotic due to nausea)
CT AP without contrast noted possible acute dinorah (pt denies to RUQ pain)
Check HIDA scan
Follow blood cultures, urine culture
cont ceftriaxone
Add Flagyl for CT finding of possible acute dinorah
advance to clears today with improved nausea
GS CS possible acute dinorah
# OBIE on CKD stage 3
SCr 2.2 on admission -> 2.0 today, from baseline 1.5
observe off IVF
Monitor SCr
# Possible persistent atrial fibrillation with RVR
# status post ablation in the past
Cont [employer] Eliquis
rate control with [employer] Coreg and amiodarone
Pt states that she has outpt cardioversion scheduled on 12/19
Card CS
Other medical conditions:
# History of CAD s/p PCI
# IDDM
Cont [employer] insulin: adjust Lantus to 7 units HS ([employer] 11 units HS)
resume [employer] aspart, use 2 units AC ([employer] 5 units AC)
ISS coverage
# Hyperlipidemia
Crestor
# Hypothyroidism
levothyroxine 75 mcg p.o. daily
# History of TIA/CVA
On Eliquis and statin
DVT prophylaxis: Eliquis
CODE STATUS: Full code
DW daughter at bedside. Extensive discussion and answered all questions.
DW RN
DW Card
total time spent 51 min
Anticipated Discharge: 24 - 48 hours
Subjective/Interval History
-
Date of Service: December 17, 2024
Objective Data
-
Labs:
Laboratory Results
12/17/24
06:05
WBC 13.5 H
Hgb 12.1
Hct 37.6
Plt Count 132
Sodium 138
Potassium 5.4 H
Chloride 108 H
Carbon Dioxide 22
BUN 48 H
Creatinine 2.0 H
Glucose 189 H
Calcium 8.7
Vital Signs:
Vital Signs
Temp Pulse Resp BP Pulse Ox
36.4 C 117 17 134/77 97
12/17/24 11:15 12/17/24 11:15 12/17/24 11:15 12/17/24 11:15 12/17/24 11:15
I&O
12/16/24 12/17/24 12/18/24
06:59 05:59 06:59
Intake Total 480 / 480
Balance 480 / 480
Review of Systems
-
All other systems: Reviewed and negative
Musculoskeletal: Reports Other (R hip pain , resolved )
Physical Exam
-
General: Well Developed, Well Nourished, No Apparent Distress, Comfortable and Conversant
HEENT: Normocephalic, Atraumatic and Moist Mucous Membranes; Negative Oxygen
Respiratory: Clear to Auscultation and Non Labored Respirations; Negative Accessory Resp Muscle Use
Cardiac: Regular Rhythm and S1/S2; Negative Murmur, Rub or JVD
GI: Soft, Nontender, Nondistended and Normal Bowel Sounds
Musculoskeletal: No Clubbing, No Cyanosis and No Edema
Neuro: Awake and Alert
Psych: Calm and Intact Judgement/Insight
Data Reviewed
-
CT Scan: Report Reviewed by me
Labs: Labs Reviewed by me
[2024-12-17 12:33] LABS: Glucose - Point of Care 198 mg/dl (70-99)
[2024-12-17] MEDS: FLAGYL 500 MG 100 IV ×2 (13:39→22:18)
[2024-12-17] MEDS: ZOFRAN 4 MG IV (13:39)
--- NOTE | 2024-12-17 14:01 | CON.CAR ---
Consultation
Consultation Request
Date/Time Consultation Requested: December 17, 2024
Date/Time Consultation Performed: December 17, 2024
Requesting Provider: Hospitalist
Performing Provider: Dr. Andrew Jansen
Reason for Consultation: Atrial fibrillation with rapid ventricular rates
Medical History
-
Chief Complaint: Left flank pain
History of Present Illness:
Primary floorworker lasting is Dr. Cam Read
Primary care provider is Dr. Susie Jarquin PA-C
She presents to the emergency department with left flank pain and is found to have cholecystitis.
On presentation to the emergency department she is found to have mildly rapid rates in atrial fibrillation.
She has a known history of atrial fibrillation, heart failure with reduced ejection fraction, diabetes mellitus, CVA, hypothyroidism, dyslipidemia,
Cardiology is asked to assist in management of atrial fibrillation with rapid ventricular rates particularly in the setting of acute cholecystitis and possible need for operative intervention
Echo 04/01/2022: EF 55%, mild cLVH, stage II diastolic dysfunction, mild MAC, mild to moderate MR, mild AI
Echo 03/17/2024: EF 35%, moderate tricuspid regurgitation and elevated pulmonary artery pressures estimated at 55-60 mmHg.
Echo 03/30/2024: Urgent bedside study in the setting of rapid response, EF 40 to 45%, no evidence of pericardial effusion
Echo 06/04/2024: LVEF improved/normalized to 55 to 60%. There is possible basal septal akinesis and basal inferior hypokinesis.
Past medical history:
Persistent atrial fibrillation
PVI for AF March 29, 2024
Developed symptomatic atrial fibrillation in November 2024
Was planned for cardioversion December 19, 2024
Heart failure with reduced ejection fraction - > improved after PVI
Orthostatic hypotension
Coronary artery disease
Chronic kidney disease, stage IIIb
Diabetes mellitus type 2
CVA in 2013
Hypertension
Dyslipidemia
Allergies / Home Medications
Allergy/AdvReac Type Severity Reaction Status Date / Time
semaglutide (From Ozempic) Allergy Itching Verified 12/16/24 12:36
�Medication �Instructions �Recorded �Confirmed �Type
ascorbic acid (vitamin C) 250 mg 250 mg PO DAILY Supplement 01/08/18 12/16/24 History
tablet
cyanocobalamin (vitamin B-12) 1,000 mcg PO DAILY Supplement 01/08/18 12/16/24 History
1,000 mcg tablet
cholecalciferol (vitamin D3) 25 25 mcg PO Q48H Supplement 01/14/21 12/16/24 History
mcg (1,000 unit) tablet
rosuvastatin 10 mg tablet 10 mg PO HS High Cholesterol 01/14/21 12/16/24 History
levothyroxine 75 mcg tablet 75 mcg PO MOTUWETHFRSA Thyroid 12/16/21 12/16/24 History
apixaban 2.5 mg tablet (Eliquis) 2.5 mg PO BID Blood Clot 03/30/22 12/16/24 History
Prevention/Tx
insulin aspart U-100 100 unit/mL 5 unit SC AC Diabetes 09/01/24 12/16/24 History
(3 mL) subcutaneous pen (Novolog
FlexPen U-100 Insulin aspart)
insulin glargine 100 unit/mL (3 11 unit SC HS Diabetes 09/01/24 12/16/24 History
mL) subcutaneous pen (Lantus
Solostar U-100 Insulin)
aspirin 81 mg chewable tablet 81 mg PO DAILY Heart 09/04/24 12/16/24 Rx
disease/condition #30 tabs
furosemide 20 mg tablet (Lasix) 20 mg PO MOWE PRN weight gain or 09/04/24 12/16/24 Rx
CHF #8 tabs
isosorbide mononitrate 30 mg 30 mg PO DAILY Heart 09/04/24 12/16/24 Rx
tablet,extended release 24 hr disease/condition #30 tabs
amiodarone 200 mg tablet 200 mg PO BID AFIB 12/16/24 12/16/24 History
carvedilol 6.25 mg tablet 6.25 mg PO BID Blood Pressure 12/16/24 12/16/24 History
Review of Systems
-
History Source: Patient
All other systems: Negative unless noted
Constitutional: Fatigue
EENT: No Symptoms
Respiratory: No Symptoms
Cardiac: No Symptoms
Abdomen/GI: Abdominal Pain, Nausea and Vomiting
: No Symptoms
Musculoskeletal: No Symptoms
Skin: No Symptoms
Neurological: No Symptoms
Hematologic/Lymphatic: No Symptoms
Physical Exam
Vital Signs
Temp Pulse Resp BP Pulse Ox
97.5 F 117 17 134/77 97
12/17/24 11:15 12/17/24 11:15 12/17/24 11:15 12/17/24 11:15 12/17/24 11:15
Lab Results
12/17/24 06:05
12/17/24 06:05
Physical Exam
General: Well Developed, Well Nourished and No Apparent Distress
HEENT: Normocephalic, Anicteric and Moist Mucous Membranes
Respiratory: Clear and Non Labored Respirations
Cardiac: S1/S2 and Irregular Rhythm
Breast: Deferred by me
GI: Soft, Non Distended and Tender
Rectal: Deferred by Provider
Musculoskeletal: No Clubbing, No Cyanosis and No Edema
Skin: Dry
Neuro: Awake, Alert, Oriented and AO x 3
Psych: Calm
Impression / Plan
-
Primary floorworker lasting is Dr. Cam Read
Primary care provider is Dr. Susie Jarquin PA-C
Assessment:
Acute cholecystitis
Persistent atrial fibrillation
PVI for AF March 29, 2024
Developed symptomatic atrial fibrillation in November 2024
Was planned for cardioversion December 19, 2024
Heart failure with reduced ejection fraction - > improved after PVI
Orthostatic hypotension
Coronary artery disease
Chronic kidney disease, stage IIIb
Diabetes mellitus type 2
CVA in 2013
Hypertension
Dyslipidemia
Echo 04/01/2022: EF 55%, mild cLVH, stage II diastolic dysfunction, mild MAC, mild to moderate MR, mild AI
Echo 03/17/2024: EF 35%, moderate tricuspid regurgitation and elevated pulmonary artery pressures estimated at 55-60 mmHg.
Echo 03/30/2024: Urgent bedside study in the setting of rapid response, EF 40 to 45%, no evidence of pericardial effusion
Echo 06/04/2024: LVEF improved/normalized to 55 to 60%. There is possible basal septal akinesis and basal inferior hypokinesis.
Recommendations:
Suspected acute cholecystitis
Currently on antibiotics, further evaluation and management as per primary service and GI/surgery
Persistent atrial fibrillation
Recurred several months after her PVI in March
On amiodarone and plan for cardioversion next week as an outpatient however this will now need to be on hold until she completes her evaluation regarding possible cholecystitis.
She has been anticoagulated with Eliquis, Eliquis now held and started on IV heparin as she may need surgical intervention for acute cholecystitis.
Eliquis has been held and she is now on IV heparin. Eventually transition back to Eliquis
Continue to focus on rate control, maintain amiodarone 200 mg twice daily and increase carvedilol from 6.25 mg p.o. twice daily to 12.5 mg twice daily
Increase carvedilol to 12.5 mg twice daily for additional rate control while we maintain amiodarone at 200 mg twice daily
Heart failure with improved ejection fraction
She had heart failure with reduced ejection fraction primarily related to recurrent atrial fibrillation and primarily related to rapid ventricular rates.
LVEF improved with cheondoism of sinus rhythm post PVI but she is now back in atrial fibrillation and ultimately she would do best with further attempts at rhythm control.
With recurrence of atrial fibrillation she has been started on amiodarone and plan is cardioversion but cardioversion on hold until further evaluation/management of suspected acute cholecystitis.
Currently not in decompensated heart failure keep a close eye on volume status.
Total time spent today was 53 minutes in preparing to see the patient, seeing the patient and coordination of care. This included review of recent laboratory evaluations, cardiact testing, imaging studies, primary care records, specialty
consultations, hospital records, as well as personally interviewing and examining the patient, which included discussion of their tests, review/ordering medications, and communicating with other healthcare professionals and also treatment planning
as well as counseling.
Data Reviewed
-
EKG: Tracing Personally Visualized and interpreted
Radiology: Report Reviewed by me
CT Scan: Report Reviewed by me
Medical Tests (Nuc Med, Echo etc): Report Reviewed by me
Labs: Labs Reviewed by me and Discussed with Patient
Old Records: Requested
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
[2024-12-17 14:43] LABS: APTT 33.0 Sec (23.4-35.0)
[2024-12-17 14:58] VITALS: BP 137/89
[2024-12-17] MEDS: ROCEPHIN 1000 MG IV (15:13)
[2024-12-17] MEDS: STERILE WATER FOR INJECTION 10 ML IV (15:14)
--- NOTE | 2024-12-17 15:57 | CM ---
Initial assessment completed. Patient is a 84-year-old female with past medical history of coronary artery disease s/p PCI, paroxysmal atrial fibrillation on Eliquis, cardiomyopathy with recovered EF at 35%, IDDM, hypertension, CKD stage 3, chronic
back pain secondary to degenerative disc disease; p/w acute on chronic left lumbar pain.
Patient resides w/ spouse and daughter. Patient and spouse have an in law suite attached to daughter's home, no steps. Patient is independent w/ cane, independent w/ personal care, daughter assists w/ ADLs. Patient has a chair lift. [facility]
hx, [facility] hx.
Address, points of contact and insurance verified
PCP: Unique Vega
Pharmacy: [facility]
PT/OT evals ordered, pending at this time
Plan: Await PT/OT recommendations
[2024-12-17 16:06] LABS: Glucose - Point of Care 203 mg/dl (70-99)
[2024-12-17] MEDS: NOVOLOG FLEXPEN 2 UNITS SC (16:08)
[2024-12-17 19:00] VITALS: BP 139/89
[2024-12-17] MEDS: HEPARIN 25000 UNITS/250 ML IV (20:14)
[2024-12-17] MEDS: COREG 12.5 MG PO (20:18)
[2024-12-17 21:45] LABS: Glucose - Point of Care 186 mg/dl (70-99)
[2024-12-17] MEDS: LANTUS 0.07 UNITS SC (22:18)
[2024-12-17] MEDS: CRESTOR 10 MG PO (22:18)
[2024-12-17 23:00] VITALS: BP 124/88
[2024-12-18] VITALS (8 sets, daily range): BP systolic 116–142; BP diastolic 75–88; PULSE 106; BMI 23.8
[2024-12-18 03:00] LABS: Hematocrit 36.1 % (37.0-47.0); Hemoglobin 11.6 g/dL (12.0-16.0); Mean Corp Hgb Conc. 32.1 g/dL (33.0-37.0); Mean Corpuscular Volume 94.0 fL (81.0-99.0); Platelet Count 116 10^3/uL (130-400); Red Cell Dist. Width 16.9 % (11.5-14.5)
[2024-12-18 03:16] LABS: APTT 148.5 Sec (23.4-35.0)
[2024-12-18 04:40] LABS: Albumin 3.4 g/dl (3.5-5.0); Carbon Dioxide 19 mmol/L (22-30); Estimated Creatinine Clearance 21 ml/min; eGFR 25.72
[2024-12-18 04:59] LABS: ALT (SGPT) 46 U/L (0-35); AST (SGOT) 26 U/L (14-36); Alkaline Phosphatase 121 U/L (38-126); Blood Urea Nitrogen 46 mg/dl (7-17); Calcium 8.6 mg/dl (8.4-10.2); Chloride 108 mmol/L (98-107); Glucose 147 mg/dl (70-99); Lipase 109 U/L (23-300); Potassium 5.1 mmol/L (3.5-5.1); Sodium 132 mmol/L (135-145); Total Protein 5.9 g/dl (6.3-8.2)
[2024-12-18] MEDS: SYNTHROID 75 MCG PO (05:23)
[2024-12-18] MEDS: FLAGYL 500 MG 100 IV ×2 (05:23→14:18)
[2024-12-18 05:46] LABS: Glucose - Point of Care 133 mg/dl (70-99)
[2024-12-18] MEDS: NOVOLOG FLEXPEN-LOW RESISTANCE SC ×2 (05:51→17:00)
[2024-12-18] MEDS: MORPHINE SULFATE 1 MG IV (10:07)
[2024-12-18] MEDS: IMDUR (EXTENDED RELEASE) 30 MG PO (10:15)
[2024-12-18] MEDS: NSS (PRESERVATIVE FREE) 10 ML IV (10:15)
[2024-12-18] MEDS: PROTONIX IV 40 MG IV (10:16)
[2024-12-18] MEDS: LOW STRENGTH ASPIRIN 81 MG PO (10:16)
[2024-12-18] MEDS: COREG 12.5 MG PO ×2 (10:16→23:25)
[2024-12-18] MEDS: PACERONE 200 MG PO ×2 (10:23→23:24)
[2024-12-18] MEDS: NOVOLOG FLEXPEN SC (10:33)
--- NOTE | 2024-12-18 11:12 | W.PN.UPDATE ---
Addendum entered and electronically signed by Mary Ponce PA-C 12/18/24 12:16:
Restart Eliquis 2.5 mg BID tonight, 12/18/2024. Patient scheduled to be seen in the cardiology office on 12/21/2024. Patient had previously been scheduled for outpatient CV on 12/19/2024, but this has now been canceled.
Original Note:
Update Note
Progress Note Update
Chart reviewed. Discussed plan with general surgery PA. Patient is having a HIDA and ultrasound today. Pending these results they will decide if surgery is needed which would probably occur on Wednesday. Continue to hold Eliquis; continue IV
heparin while off Eliquis. Continue rate control strategy for atrial fibrillation in the setting of acute cholecystectomy and possible need for surgery.
[2024-12-18 12:02] LABS: APTT 69.9 Sec (23.4-35.0)
[2024-12-18 12:17] LABS: Glucose - Point of Care 158 mg/dl (70-99)
--- NOTE | 2024-12-18 12:58 | CM ---
Patient seen bedside.
Off floor this am for HIDA scan.
Still with back pain and just medicated.
PT evals pending.
Per patient she may need surgery, awaiting test results.
CM will continue to follow.
Plan: TBD once therapy evals completed.
[2024-12-18] MEDS: NOVOLOG FLEXPEN 2 UNITS SC (13:15)
[2024-12-18] MEDS: NOVOLOG FLEXPEN-LOW RESISTANCE 1 UNITS SC (13:15)
--- NOTE | 2024-12-18 14:54 | W.PN.HOSP.TC ---
Today's Communication/Plan
-
Adjust antibiotics, adjust insulin, adjust pain meds, HIDA negative, resumed CLD, resume Eliquis. Await final urine culture.
Assessment / Plan
Assessment / Plan
84F with CAD s/p PCI, PAF on Eliquis, CHF, DM, HTN, CKD 3, chronic back pain, DDD; p/w acute on chronic left lumbar pain.
A/P:
Left flank pain
CT A/P shows LLL mild patchy parenchymal opacity, likely atelectasis, also GB wall thickening, moderate diffuse subcutaneous edema, slightly greater in left flank compared to right. There do not appear to be any issues with the kidneys, spleen, or
bowel, limited by noncontrast study.
The pain could be due to the acute UTI.
Due to the possibility of acute cholecystitis, surgery was consulted, abdominal ultrasound and HIDA scan were performed, which did not show acute cholecystitis. There are findings consistent with possible chronic cholecystitis and hepatic
dysfunction.
No surgical plan. Stopping heparin drip. Resuming eliquis
Patient on clear liquid diet, advance when okay with surgery team.
Discontinue IV morphine, continue as needed oxycodone oral, Tylenol
Sepsis secondary to UTI, with OBIE
Urine culture on admit growing 50K GNB, final C/S pending. Repeat urine cultures no growth. BCx NGTD
cont empiric ceftriaxone
Discontinue Flagyl as HIDA negative for acute cholecystitis
OBIE on CKD stage 3
Proteinuria, 3+ albumin. Will review old records to find cause.
CT shows subcutaneous edema
SCr 2.2 on admission, from baseline 1.5. Monitor Cr.
observe off IVF, treating UTI as above.
Patient had workup with urine 24h protein and k/l chains in 2022, will attempt to review old records and may need inpatient neph consult.
Possible persistent atrial fibrillation with RVR
s/p ablation
Cont Eliquis
rate control with Coreg and amiodarone
Pt states that she has outpt cardioversion scheduled on 12/19, has now been canceled, cardiology is following patient.
CAD s/p PCI
HLD
cont statin
DM
BG uncontrolled, increase back to 11 units Lantus qhs and lispro 5 units TID-meals
ISS coverage
Hypothyroidism
levothyroxine 75 mcg p.o. daily
History of TIA/CVA
On Eliquis and statin
DVT prophylaxis: Eliquis
CODE STATUS: Full code
Anticipated Discharge: 24 - 48 hours
Subjective/Interval History
-
Date of Service: December 18, 2024
Patient denies abdominal pain at present, just received pain medicine. No fever, no chills, no nausea, no vomiting.
Objective Data
-
Labs:
Laboratory Results
12/18/24 12/18/24 12/18/24
02:52 11:05 19:00
WBC 13.2 H
Hgb 11.6 L
Hct 36.1 L
Plt Count 116 L
APTT 148.5 H 69.9 H Pending
Sodium 132 L
Potassium 5.1
Chloride 108 H
Carbon Dioxide 19 L
BUN 46 H
Creatinine 1.9 H
Glucose 147 H
Calcium 8.6
Total Bilirubin 0.5
AST 26
ALT 46 H
Alkaline Phosphatase 121
Vital Signs:
Vital Signs
Temp Pulse Resp BP Pulse Ox
97.4 F 109 18 123/78 93
12/18/24 11:00 12/18/24 11:00 12/18/24 11:00 12/18/24 11:00 12/18/24 11:00
I&O
12/17/24 12/18/24 12/19/24
05:59 06:59 06:59
Intake Total 480 / 480 860 / 860 100 / 100
Output Total 200 / 200
Balance 480 / 480 860 / 860 -100 / -100
Review of Systems
-
All other systems: Reviewed and negative
Physical Exam
-
General: No Apparent Distress
HEENT: Moist Mucous Membranes, Anicteric and PERRLA
Respiratory: Clear to Auscultation; Negative Wheezes, Rales or Rhonchi
Cardiac: Regular Rhythm and S1/S2; Negative Murmur, Rub or Gallop
GI: Soft, Nontender, Nondistended and Normal Bowel Sounds
Musculoskeletal: No Edema
Skin: Warm and Dry; Negative Rash, Ulcers or Lesions
Neuro: Awake and AO x 3
Hematologic / Lymphatic: No Lymphadenopathy
Psych: Calm
Data Reviewed
-
CT Scan: Report Reviewed by me and Discussed with Patient
Ultrasound: Report Reviewed by me
Medical Tests (Nuc Med, Echo etc): Report Reviewed by me and Discussed with Nurse
--- NOTE | 2024-12-18 14:57 | W.PN.GS2 ---
Today's Communication / Plan
-
General Surgery signing off HIDA negative. No surgical intervention warranted.
Assessment / Plan
-
This is an 84-year-old female with a history of A-fib on Eliquis, multiple other medical comorbidities who presented with left flank pain and subsequent CT scan with gallbladder wall edema concerning for possible cholecystitis. However HIDA scan
today confirms patent cystic duct.
No acute surgical intervention warranted at this time.
Diet per primary.
Anticoagulation per primary.
Antibiotics per primary.
General surgery will sign off for now, please call with any questions or concerns.
Time Spent
Total Time Spent with Patient (in minutes): 20
Subjective Data
-
Date of Service: December 18, 2024
Interval Events:
No acute events overnight. Slept well. Pain Controlled. Denies Nausea/Vomiting, +bowel function.
Objective Data
-
Intake and Output
12/17/24 12/18/24 12/19/24
05:59 06:59 06:59
Intake Total 480 / 480 860 / 860 100 / 100
Output Total 200 / 200
Balance 480 / 480 860 / 860 -100 / -100
Intake:
Oral fluids 480 / 480 660 / 660
IV piggybacks 200 / 200 100 / 100
Output:
Urine, Voided 200 / 200
Other:
Number of approximated MODERATE 2 1
amounts of urine
Vital Signs
Temp Pulse Resp BP Pulse Ox
97.4 F 109 18 123/78 93
12/18/24 11:00 12/18/24 11:00 12/18/24 11:00 12/18/24 11:00 12/18/24 11:00
Lab Results
12/18/24 02:52
12/18/24 02:52
Calcium 8.6 mg/dl (8.4-10.2) 12/18/24 02:52
Total Bilirubin 0.5 mg/dl (0.2-1.3) 12/18/24 02:52
Direct Bilirubin 0.4 mg/dl (0.0-0.4) 12/18/24 02:52
AST 26 U/L (14-36) 12/18/24 02:52
ALT 46 U/L (0-35) H 12/18/24 02:52
Alkaline Phosphatase 121 U/L (38-126) 12/18/24 02:52
Total Protein 5.9 g/dl (6.3-8.2) L 12/18/24 02:52
Albumin 3.4 g/dl (3.5-5.0) L 12/18/24 02:52
Physical Exam
-
GENERAL/NEURO: Awake, Alert, no distress
CHEST: Unlabored breathing on RA
ABDOMEN: Soft, Non-Tender, Non-Distended
Patient has a easton catheter: No
Patient has a central line: No
[2024-12-18] MEDS: ROCEPHIN 1000 MG IV (15:33)
[2024-12-18] MEDS: STERILE WATER FOR INJECTION 10 ML IV (15:33)
[2024-12-18 16:59] LABS: Glucose - Point of Care 130 mg/dl (70-99)
[2024-12-18] MEDS: NOVOLOG FLEXPEN 5 UNITS SC (18:02)
[2024-12-18 19:54] LABS: APTT 122.6 Sec (23.4-35.0)
[2024-12-18 21:56] LABS: Glucose - Point of Care 152 mg/dl (70-99)
[2024-12-18] MEDS: ELIQUIS 2.5 MG PO (23:25)
[2024-12-18] MEDS: LANTUS 0.11 UNITS SC (23:25)
[2024-12-18] MEDS: CRESTOR 10 MG PO (23:25)
[2024-12-19 03:13] VITALS: BP 130/80
[2024-12-19] MEDS: SYNTHROID 75 MCG PO (06:03)
[2024-12-19 07:00] LABS: Hematocrit 38.7 % (37.0-47.0); Hemoglobin 12.2 g/dL (12.0-16.0); Mean Corp Hgb Conc. 31.5 g/dL (33.0-37.0); Mean Corpuscular Volume 98.0 fL (81.0-99.0); Nucleated Red Blood Cells % 0 %; Platelet Count 107 10^3/uL (130-400); Red Cell Dist. Width 16.9 % (11.5-14.5)
[2024-12-19 07:19] LABS: Blood Urea Nitrogen 44 mg/dl (7-17); Calcium 8.9 mg/dl (8.4-10.2); Carbon Dioxide 22 mmol/L (22-30); Chloride 105 mmol/L (98-107); Estimated Creatinine Clearance 19 ml/min; Glucose 114 mg/dl (70-99); Potassium 4.8 mmol/L (3.5-5.1); Sodium 132 mmol/L (135-145); eGFR 22.81
[2024-12-19 08:00] VITALS: BP 128/81
[2024-12-19] MEDS: ELIQUIS 2.5 MG PO ×2 (08:51→22:28)
[2024-12-19] MEDS: PACERONE 200 MG PO ×2 (08:51→22:27)
[2024-12-19] MEDS: LOW STRENGTH ASPIRIN 81 MG PO (08:51)
[2024-12-19] MEDS: IMDUR (EXTENDED RELEASE) 30 MG PO (08:51)
[2024-12-19] MEDS: COREG 12.5 MG PO ×2 (08:51→22:27)
[2024-12-19 09:22] LABS: Glucose - Point of Care 109 mg/dl (70-99)
[2024-12-19] MEDS: NOVOLOG FLEXPEN-LOW RESISTANCE SC (09:23)
[2024-12-19] MEDS: NOVOLOG FLEXPEN 5 UNITS SC ×3 (10:08→17:08)
[2024-12-19 12:26] LABS: Glucose - Point of Care 157 mg/dl (70-99)
[2024-12-19] MEDS: NOVOLOG FLEXPEN-LOW RESISTANCE 1 UNITS SC ×2 (13:23→17:07)
--- NOTE | 2024-12-19 14:49 | W.PN.HOSP.TC ---
Today's Communication/Plan
-
cont ceftriaxone
consult nephrology
outpt cardioversion was cancelled, will f/u with cards about rescheduling
Assessment / Plan
Assessment / Plan
84F with CAD s/p PCI, PAF on Eliquis, CHF, DM, HTN, CKD 3, chronic back pain, DDD; p/w acute on chronic left lumbar pain.
A/P:
Left flank pain
CT A/P shows LLL mild patchy parenchymal opacity, likely atelectasis, also GB wall thickening, moderate diffuse subcutaneous edema, slightly greater in left flank compared to right. There do not appear to be any issues with the kidneys, spleen, or
bowel, limited by noncontrast study.
The pain could be due to the acute UTI.
Due to the possibility of acute cholecystitis, surgery was consulted, abdominal ultrasound and HIDA scan were performed, which did not show acute cholecystitis. There are findings consistent with possible chronic cholecystitis and hepatic
dysfunction.
No surgical plan. Stopped heparin drip. Resumed eliquis
Diet advanced to regular, tolerated well
Discontinue IV morphine, continue as needed oxycodone oral, Tylenol
Sepsis secondary to UTI, with OBIE
Urine culture on admit growing Klebsiella and E. coli, sensitive to ceftriaxone. Repeat urine cultures no growth. BCx NGTD
cont ceftriaxone
Discontinue Flagyl as HIDA negative for acute cholecystitis
OBIE on CKD stage 3
Proteinuria, 3+ albumin. Attempted to review old records to find cause but none available and pt doesn't know her economic development specialist (previously Dr. Diehl but he retired)
CT shows subcutaneous edema
SCr 2.2 on admission, from baseline 1.5. Monitor Cr.
observe off IVF, treating UTI as above.
Patient had workup with urine 24h protein and k/l chains in 2022
consulted nephrology.
Possible persistent atrial fibrillation with RVR
s/p ablation
Cont Eliquis
rate control with Coreg and amiodarone
Pt states that she has outpt cardioversion scheduled on 12/19, has now been canceled, may need to be postponed due to infection, cardiology is following inpatient.
CAD s/p PCI
HLD
cont statin
DM
BG uncontrolled, increase back to 11 units Lantus qhs and lispro 5 units TID-meals
ISS coverage
Hypothyroidism
levothyroxine 75 mcg p.o. daily
History of TIA/CVA
On Eliquis and statin
DVT prophylaxis: Eliquis
CODE STATUS: Full code
Anticipated Discharge: 24 - 48 hours
Subjective/Interval History
-
Date of Service: December 19, 2024
Patient states she ate solid food for breakfast with no acute issues, denies abdominal pain, nausea/vomiting. Does not recall the name of her current economic development specialist, notes her previous economic development specialist Dr. Saez, retired. Updated pt's daughter by
phone.
Objective Data
-
Labs:
Laboratory Results
12/19/24
06:41
WBC 11.6 H
Hgb 12.2
Hct 38.7
Plt Count 107 L
Sodium 132 L
Potassium 4.8
Chloride 105
Carbon Dioxide 22
BUN 44 H
Creatinine 2.1 H
Glucose 114 H
Calcium 8.9
Vital Signs:
Vital Signs
Temp Pulse Resp BP Pulse Ox
97.7 F 96 18 128/81 97
12/19/24 08:00 12/19/24 08:00 12/19/24 08:00 12/19/24 08:00 12/19/24 08:00
I&O
12/18/24 12/19/24 12/20/24
06:59 06:59 06:59
Intake Total 860 / 860 700 / 700
Output Total 325 / 325
Balance 860 / 860 375 / 375
Review of Systems
-
All other systems: Reviewed and negative
Physical Exam
-
General: No Apparent Distress
HEENT: Moist Mucous Membranes, Anicteric and PERRLA
Respiratory: Clear to Auscultation; Negative Wheezes, Rales or Rhonchi
Cardiac: Regular Rhythm and S1/S2; Negative Murmur, Rub or Gallop
GI: Soft, Nontender, Nondistended and Normal Bowel Sounds
Musculoskeletal: No Edema
Skin: Warm and Dry; Negative Rash, Ulcers or Lesions
Neuro: Awake and AO x 3
Hematologic / Lymphatic: No Lymphadenopathy
Psych: Calm
Data Reviewed
-
CT Scan: Report Reviewed by me and Discussed with Patient
Ultrasound: Report Reviewed by me
Medical Tests (Nuc Med, Echo etc): Report Reviewed by me and Discussed with Nurse
[2024-12-19] MEDS: STERILE WATER FOR INJECTION 10 ML IV (15:17)
[2024-12-19] MEDS: ROCEPHIN 1000 MG IV (15:18)
--- NOTE | 2024-12-19 15:51 | CM ---
Chart reviewed and Physical therapy are recommending home with [facility] when stable, will need to set up homecare, patient had [facility] in past.
Plan; Home with spouse and visiting nurses when stable.
[2024-12-19 16:00] VITALS: BP 120/69
[2024-12-19 17:06] LABS: Glucose - Point of Care 187 mg/dl (70-99)
--- NOTE | 2024-12-19 17:41 | W.CON.NEPH ---
Consultation
-
Date/Time Consultation Requested: December 19, 2024 5 PM
Date/Time Consultation Performed: December 20, 2019 5:30 PM
Requesting Provider: Alta Pandya
Performing Provider: Dr. Dye
Reason for Consultation: Acute on chronic kidney disease
Medical History
-
Chief Complaint: Acute on chronic kidney disease
History of Present Illness:
84-year-old female with past medical history of coronary artery disease s/p PCI, paroxysmal atrial fibrillation on Eliquis, cardiomyopathy with recovered EF at 35%, IDDM, hypertension, CKD stage 3, chronic back pain secondary to degenerative disc
disease; p/w acute on chronic left lumbar pain.
She has been ruled out for cholecystitis based on imaging negative HIDA scan.. She has history of atrial fibrillation status post ablation. Heart rate is relatively controlled she did have a ventricular response of around 129 she is being seen by
cardiology. She has previously been scheduled for a cardioversion which has been rescheduled.
Her blood pressures have been stable and no episodes of hypotension.
Appetite has been poor for about a week. She is starting to eat more she had an episode of diarrhea today
Currently being treated for urinary tract infection.
Urine cultures grew Klebsiella and E. coli. Blood cultures negative.
She has a baseline creatinine of 1.5 and has risen up to 2.2
Past Medical History
Hypothyroidism
TIA
Hypertension
CKD
A-fib
Type 2 diabetes
ischemic cardiomyopathy
Coronary artery disease
Hyperlipidemia
Social History
Caring for her 's chronic illness
Tobacco: Non-Smoker
Alcohol: None
Family History
Family History: Not Pertinent
Allergies / Home Medications
Allergy/AdvReac Type Severity Reaction Status Date / Time
semaglutide (From Ozempic) Allergy Itching Verified 12/16/24 12:36
�Medication �Instructions �Recorded �Confirmed �Type
ascorbic acid (vitamin C) 250 mg 250 mg PO DAILY Supplement 01/08/18 12/16/24 History
tablet
cyanocobalamin (vitamin B-12) 1,000 mcg PO DAILY Supplement 01/08/18 12/16/24 History
1,000 mcg tablet
cholecalciferol (vitamin D3) 25 25 mcg PO Q48H Supplement 01/14/21 12/16/24 History
mcg (1,000 unit) tablet
rosuvastatin 10 mg tablet 10 mg PO HS High Cholesterol 01/14/21 12/16/24 History
levothyroxine 75 mcg tablet 75 mcg PO MOTUWETHFRSA Thyroid 12/16/21 12/16/24 History
apixaban 2.5 mg tablet (Eliquis) 2.5 mg PO BID Blood Clot 03/30/22 12/16/24 History
Prevention/Tx
insulin aspart U-100 100 unit/mL 5 unit SC AC Diabetes 09/01/24 12/16/24 History
(3 mL) subcutaneous pen (Novolog
FlexPen U-100 Insulin aspart)
insulin glargine 100 unit/mL (3 11 unit SC HS Diabetes 09/01/24 12/16/24 History
mL) subcutaneous pen (Lantus
Solostar U-100 Insulin)
aspirin 81 mg chewable tablet 81 mg PO DAILY Heart 09/04/24 12/16/24 Rx
disease/condition #30 tabs
furosemide 20 mg tablet (Lasix) 20 mg PO MOWE PRN weight gain or 09/04/24 12/16/24 Rx
CHF #8 tabs
isosorbide mononitrate 30 mg 30 mg PO DAILY Heart 09/04/24 12/16/24 Rx
tablet,extended release 24 hr disease/condition #30 tabs
amiodarone 200 mg tablet 200 mg PO BID AFIB 12/16/24 12/16/24 History
carvedilol 6.25 mg tablet 6.25 mg PO BID Blood Pressure 12/16/24 12/16/24 History
Review of Systems
-
No chest pain or shortness of breath
All other systems: Negative unless noted
Physical Exam
Vital Signs
Vital Signs
Temp Pulse Resp BP Pulse Ox
97.7 F 84 16 120/69 98
12/19/24 16:00 12/19/24 16:00 12/19/24 16:00 12/19/24 16:00 12/19/24 16:00
Lab Results
WBC 11.6 10^3/uL (4.8-10.8) H 12/19/24 06:41
RBC 3.95 10^6/uL (4.20-5.40) L 12/19/24 06:41
Hgb 12.2 g/dL (12.0-16.0) 12/19/24 06:41
Hct 38.7 % (37.0-47.0) 12/19/24 06:41
Plt Count 107 10^3/uL (130-400) L 12/19/24 06:41
Sodium 132 mmol/L (135-145) L 12/19/24 06:41
Potassium 4.8 mmol/L (3.5-5.1) 12/19/24 06:41
Chloride 105 mmol/L (98-107) 12/19/24 06:41
Carbon Dioxide 22 mmol/L (22-30) 12/19/24 06:41
BUN 44 mg/dl (7-17) H 12/19/24 06:41
Creatinine 2.1 mg/dL (0.6-1.0) H 12/19/24 06:41
eGFR 22.81 12/19/24 06:41
Glucose 114 mg/dl (70-99) H 12/19/24 06:41
Calcium 8.9 mg/dl (8.4-10.2) 12/19/24 06:41
Albumin 3.4 g/dl (3.5-5.0) L 12/18/24 02:52
Physical Exam
General no acute distress
HEENT no cephalic atraumatic extraocular muscle intact no scleral icterus no JVD neck supple
lungs clear to auscultation bilateral
heart regular S1-S2 positive
abdomen soft nontender positive bowel sounds
extremities no edema pulses present bilateral
Neurologically nonfocal alert and oriented x 3
Skin no lesions no abrasions no petechiae
Psych normal affect no bizarre behavior
Data Reviewed
-
Radiology: Image Personally Visualized and interpreted
Labs: Labs Reviewed by me, Discussed with Physician, Discussed with Nurse and Discussed with Patient
Assessment/Plan
-
84-year-old female with past medical history of coronary artery disease s/p PCI, paroxysmal atrial fibrillation on Eliquis, cardiomyopathy with recovered EF at 55% as of May 2024 though she does have stage III diastolic dysfunction, IDDM,
hypertension, CKD stage 3, chronic back pain secondary to degenerative disc disease; p/w acute on chronic left lumbar pain.
She has been ruled out for cholecystitis based on imaging negative HIDA scan.. She has history of atrial fibrillation status post ablation. Heart rate is relatively controlled she did have a ventricular response of around 129 she is being seen by
cardiology. She has previously been scheduled for a cardioversion which has been rescheduled.
Her blood pressures have been stable and no episodes of hypotension.
Appetite has been poor for about a week. She is starting to eat more she had an episode of diarrhea today
Currently being treated for urinary tract infection.
Urine cultures grew Klebsiella and E. coli. Blood cultures negative.
She has a baseline creatinine of 1.5 and has risen up to 2.2
Impression
Acute on chronic kidney disease stage IIIb previously seen by [place] en[employer] research worker but has since retired
Cardiomyopathy diastolic with a preserved EF
Gram-negative UTI
Chronic atrial fibrillation rate controlled
Mild hyponatremia/no signs of volume overload
Plan
Appropriate to start on normal saline
Urine indices consistent with urinary tract infection with albuminuria likely diabetic nephropathy.= Will eventually need to be on SRIINVAS inhibitor or angiotensin receptor gina plus SGLT2 inhibitor as I do not see this on her outpatient medication.
Start normal saline.
AM labs.
Renal dose all medications for appropriate eGFR until reaches steady state
[2024-12-19] MEDS: NSS 1000 IV (18:10)
[2024-12-19 21:24] LABS: Glucose - Point of Care 180 mg/dl (70-99)
[2024-12-19] MEDS: LANTUS 0.11 UNITS SC (22:26)
[2024-12-19] MEDS: ROXICODONE 5 MG PO (22:26)
[2024-12-19] MEDS: CRESTOR 10 MG PO (22:27)
[2024-12-19 22:33] VITALS: BP 126/75
[2024-12-20] MEDS: ZOFRAN 4 MG IV ×3 (01:45→16:00)
[2024-12-20] MEDS: NSS 1000 IV ×3 (04:51→16:01)
[2024-12-20] MEDS: SYNTHROID 75 MCG PO (05:00)
[2024-12-20 07:00] VITALS: BP 119/79
[2024-12-20 07:02] LABS: Hematocrit 37.6 % (37.0-47.0); Hemoglobin 12.1 g/dL (12.0-16.0); Mean Corp Hgb Conc. 32.2 g/dL (33.0-37.0); Mean Corpuscular Volume 94.9 fL (81.0-99.0); Nucleated Red Blood Cells % 0 %; Platelet Count 104 10^3/uL (130-400); Red Cell Dist. Width 17.0 % (11.5-14.5)
[2024-12-20 07:24] LABS: Blood Urea Nitrogen 40 mg/dl (7-17); Calcium 8.2 mg/dl (8.4-10.2); Carbon Dioxide 21 mmol/L (22-30); Chloride 106 mmol/L (98-107); Estimated Creatinine Clearance 19 ml/min; Glucose 140 mg/dl (70-99); Sodium 133 mmol/L (135-145); eGFR 21.57
[2024-12-20 07:29] LABS: Potassium 5.0 mmol/L (3.5-5.1)
[2024-12-20 07:39] LABS: Glucose - Point of Care 139 mg/dl (70-99)
[2024-12-20] MEDS: NOVOLOG FLEXPEN-LOW RESISTANCE SC ×3 (07:54→16:41)
[2024-12-20] MEDS: NOVOLOG FLEXPEN SC ×4 (09:17→16:16)
[2024-12-20] MEDS: REGLAN 5 MG IV (10:07)
[2024-12-20] MEDS: COREG PO (10:12)
[2024-12-20] MEDS: IMDUR (EXTENDED RELEASE) PO (10:13)
[2024-12-20] MEDS: PACERONE PO (10:13)
[2024-12-20] MEDS: LOW STRENGTH ASPIRIN PO (10:13)
[2024-12-20] MEDS: ELIQUIS PO (10:13)
[2024-12-20 12:02] LABS: Glucose - Point of Care 149 mg/dl (70-99)
--- NOTE | 2024-12-20 12:07 | W.PN.HOSP.TC ---
Today's Communication/Plan
-
n/v check lfts/lipase, prn antiemetics, consider repeat imaging if persists
cont ceftriaxone
IVF for OBIE
Assessment / Plan
Assessment / Plan
84F with CAD s/p PCI, PAF on Eliquis, CHF, DM, HTN, CKD 3, chronic back pain, DDD; p/w acute on chronic left lumbar pain.
A/P:
Left flank pain
CT A/P shows LLL mild patchy parenchymal opacity, likely atelectasis, also GB wall thickening, moderate diffuse subcutaneous edema, slightly greater in left flank compared to right. There do not appear to be any issues with the kidneys, spleen, or
bowel, limited by noncontrast study.
The pain could be due to the acute UTI.
Due to the possibility of acute cholecystitis, surgery was consulted, abdominal ultrasound and HIDA scan were performed, which did not show acute cholecystitis. There are findings consistent with possible chronic cholecystitis and hepatic
dysfunction.
No surgical plan. Stopped heparin drip. Resumed eliquis
Diet advanced to regular, tolerated well
Discontinue IV morphine, continue as needed oxycodone oral, Tylenol
Nausea
pt c/o nausea 12/20, prn IV zofran/reglan. Getting IVF.
ddx could be related to the antibiotics, chronic cholecystitis, UTI
recheck LFTs, lipase
if persists will consider repeat imaging (limited by pt's OBIE)
Sepsis secondary to UTI, with OBIE
Urine culture on admit growing Klebsiella and E. coli, sensitive to ceftriaxone. Repeat urine cultures no growth. BCx NGTD
cont ceftriaxone day 4
Discontinued Flagyl as HIDA negative for acute cholecystitis
OBIE on CKD stage 3
Proteinuria, 3+ albumin. 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 Diehl but he retired)
CT shows subcutaneous edema
SCr 2.2 on admission, from baseline 1.5. Monitor Cr.
observe off IVF, treating UTI as above.
Patient had workup with urine 24h protein and k/l chains in 2022
consulted nephrology. Per notes could be c/w diabetic nephropathy. Trialing IVF.
outpt neph follow up, probably needs kidney biopsy if she hasn't had one
Possible persistent atrial fibrillation with RVR
s/p ablation
Cont Eliquis
rate control with Coreg and amiodarone
Pt states that she has outpt cardioversion scheduled on 12/19, has now been canceled, may need to be postponed due to infection, cardiology is following inpatient. Will d/w cardiology about rescheduling
CAD s/p PCI
HLD
cont statin
DM
BG controlled, increased back to home 11 units Lantus qhs and lispro 5 units TID-meals
ISS coverage
Hypothyroidism
levothyroxine 75 mcg p.o. daily
History of TIA/CVA
On Eliquis and statin
DVT prophylaxis: Eliquis
CODE STATUS: Full code
Anticipated Discharge: 24 - 48 hours
Subjective/Interval History
-
Date of Service: December 20, 2024
Patient feeling very nauseous, unable to eat breakfast. Denies vomiting. Had diarrhea Wednesday and Wednesday, no BM today. No fever or chills.
Objective Data
-
Labs:
Laboratory Results
12/20/24
06:29
WBC 12.2 H
Hgb 12.1
Hct 37.6
Plt Count 104 L
Sodium 133 L
Potassium 5.0
Chloride 106
Carbon Dioxide 21 L
BUN 40 H
Creatinine 2.2 H
Glucose 140 H
Calcium 8.2 L
Vital Signs:
Vital Signs
Temp Pulse Resp BP Pulse Ox
97.5 F 102 18 119/79 97
12/20/24 07:00 12/20/24 07:00 12/20/24 07:00 12/20/24 07:00 12/20/24 07:00
I&O
12/19/24 12/20/24 12/21/24
06:59 06:59 06:59
Intake Total 700 / 700 1615 / 1615
Output Total 325 / 325 600 / 600
Balance 375 / 375 1015 / 1015
Review of Systems
-
All other systems: Reviewed and negative
Physical Exam
-
General: Appears in Distress (Nauseous)
HEENT: Moist Mucous Membranes, Anicteric and PERRLA
Respiratory: Clear to Auscultation; Negative Wheezes, Rales or Rhonchi
Cardiac: Regular Rhythm and S1/S2; Negative Murmur, Rub or Gallop
GI: Soft, Nontender, Nondistended and Normal Bowel Sounds
Musculoskeletal: No Edema
Skin: Warm and Dry; Negative Rash, Ulcers or Lesions
Neuro: Awake and AO x 3
Hematologic / Lymphatic: No Lymphadenopathy
Psych: Calm
Data Reviewed
-
CT Scan: Report Reviewed by me and Discussed with Patient
Ultrasound: Report Reviewed by me
Medical Tests (Nuc Med, Echo etc): Report Reviewed by me and Discussed with Nurse
[2024-12-20 13:21] LABS: ALT (SGPT) 38 U/L (0-35); AST (SGOT) 33 U/L (14-36); Albumin 3.3 g/dl (3.5-5.0); Alkaline Phosphatase 133 U/L (38-126); Lipase 137 U/L (23-300); Total Protein 5.6 g/dl (6.3-8.2)
[2024-12-20 15:00] VITALS: BP 134/88
[2024-12-20] MEDS: ROCEPHIN 1000 MG IV (15:02)
[2024-12-20] MEDS: STERILE WATER FOR INJECTION 10 ML IV (15:03)
--- NOTE | 2024-12-20 15:39 | W.PN.NEPH.PH ---
Today's Communication / Plan
-
follow BMP
Assessment/Plan
-
84-year-old female with past medical history of coronary artery disease s/p PCI, paroxysmal atrial fibrillation on Eliquis, cardiomyopathy with recovered EF at 55% as of May 2024 though she does have stage III diastolic dysfunction, IDDM,
hypertension, CKD stage 3, chronic back pain secondary to degenerative disc disease; p/w acute on chronic left lumbar pain.
She has been ruled out for cholecystitis based on imaging negative HIDA scan.. She has history of atrial fibrillation status post ablation. Heart rate is relatively controlled she did have a ventricular response of around 129 she is being seen by
cardiology. She has previously been scheduled for a cardioversion which has been rescheduled.
Her blood pressures have been stable and no episodes of hypotension.
Appetite has been poor for about a week. She is starting to eat more she had an episode of diarrhea today
Currently being treated for urinary tract infection.
Urine cultures grew Klebsiella and E. coli. Blood cultures negative.
She has a baseline creatinine of 1.5 and has risen up to 2.2
Impression
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
Cardiomyopathy diastolic with a preserved EF
Gram-negative UTI
Chronic atrial fibrillation rate controlled
Mild hyponatremia/no signs of volume overload
Plan
follow BMP
reduce IVF
-
-
Date of Service: December 20, 2024
CC / HPI / ROS
-
Chief Complaint:
OBIE
History of Present Illness:
OBIE/Cr stable 2.2
Na stable low 133
K stable 5
Review of Systems:
nausea
no CP/SOB
Labs
-
Labs:
WBC 12.2 10^3/uL (4.8-10.8) H 12/20/24 06:29
RBC 3.96 10^6/uL (4.20-5.40) L 12/20/24 06:
Hgb 12.1 g/dL (12.0-16.0) 12/20/24 06:
Hct 37.6 % (37.0-47.0) 12/20/24 06:
Plt Count 104 10^3/uL (130-400) L 12/20/24 06:
Sodium 133 mmol/L (135-145) L 12/20/24:
Potassium 5.0 mmol/L (3.5-5.1) 12/20/24:
Chloride 106 mmol/L (98-107) 12/20/24 06:
Carbon Dioxide 21 mmol/L (22-30) L 12/20/24 06:
BUN 40 mg/dl (7-17) H 12/20/24 06:
Creatinine 2.2 mg/dL (0.6-1.0) H 12/20/24 06:
eGFR 21.57 12/20/24 06:
Glucose 140 mg/dl (70-99) H 12/20/24 06:
Calcium 8.2 mg/dl (8.4-10.2) L 12/20/24 06:
Albumin 3.3 g/dl (3.5-5.0) L 12/20/24 06:29
Physical Exam
-
Vital Signs:
Vital Signs
Temp Pulse Resp BP Pulse Ox
97.6 F 109 18 134/88 93
12/20/24 15:00 12/20/24 15:00 12/20/24 15:00 12/20/24 15:00 12/20/24 15:00
Cardiovascular:: Regular rate and rhythm
Respiratory:: Bilateral: Coarse
Lung Excursion:: Normal
Abdomen:: Nontender and Soft
Bowel Sounds:: Normal
Extremity Edema:: None: Bilateral:
[2024-12-20 16:11] LABS: Glucose - Point of Care 160 mg/dl (70-99)
[2024-12-20] MEDS: NOVOLOG FLEXPEN-LOW RESISTANCE 1 UNITS SC (18:07)
[2024-12-20] MEDS: NOVOLOG FLEXPEN 5 UNITS SC (18:08)
[2024-12-20] MEDS: COREG 12.5 MG PO (21:42)
[2024-12-20] MEDS: ELIQUIS 2.5 MG PO (21:42)
[2024-12-20] MEDS: PACERONE 200 MG PO (21:43)
[2024-12-20] MEDS: CRESTOR 10 MG PO (21:45)
[2024-12-20 21:49] LABS: Glucose - Point of Care 146 mg/dl (70-99)
[2024-12-20] MEDS: LANTUS 0.11 UNITS SC (22:55)
[2024-12-20 23:45] VITALS: BP 142/89
[2024-12-21 03:40] VITALS: BMI 24.3
[2024-12-21] MEDS: NSS 1000 IV (05:36)
[2024-12-21] MEDS: SYNTHROID 75 MCG PO (05:51)
[2024-12-21 06:32] LABS: Hematocrit 37.7 % (37.0-47.0); Hemoglobin 12.4 g/dL (12.0-16.0); Mean Corp Hgb Conc. 32.9 g/dL (33.0-37.0); Mean Corpuscular Volume 94.7 fL (81.0-99.0); Nucleated Red Blood Cells % 0 %; Platelet Count 105 10^3/uL (130-400); Red Cell Dist. Width 17.0 % (11.5-14.5)
[2024-12-21 07:00] VITALS: BP 132/92
[2024-12-21 07:05] LABS: ALT (SGPT) 33 U/L (0-35); AST (SGOT) 25 U/L (14-36); Albumin 3.3 g/dl (3.5-5.0); Alkaline Phosphatase 119 U/L (38-126); Blood Urea Nitrogen 38 mg/dl (7-17); Calcium 8.4 mg/dl (8.4-10.2); Carbon Dioxide 21 mmol/L (22-30); Chloride 108 mmol/L (98-107); Estimated Creatinine Clearance 21 ml/min; Glucose 105 mg/dl (70-99); Potassium 4.9 mmol/L (3.5-5.1); Sodium 133 mmol/L (135-145); Total Protein 5.8 g/dl (6.3-8.2); eGFR 25.72
[2024-12-21 08:01] LABS: Glucose - Point of Care 103 mg/dl (70-99)
[2024-12-21 08:08] VITALS: BMI 24.3
[2024-12-21] MEDS: NOVOLOG FLEXPEN-LOW RESISTANCE SC ×3 (08:44→17:55)
[2024-12-21] MEDS: IMDUR (EXTENDED RELEASE) 30 MG PO (09:48)
[2024-12-21] MEDS: NOVOLOG FLEXPEN 5 UNITS SC ×2 (09:48→13:33)
[2024-12-21] MEDS: COREG 12.5 MG PO ×2 (09:48→21:14)
[2024-12-21] MEDS: LOW STRENGTH ASPIRIN 81 MG PO (09:48)
[2024-12-21] MEDS: ELIQUIS 2.5 MG PO ×2 (09:48→21:15)
[2024-12-21] MEDS: PACERONE 200 MG PO ×2 (09:50→21:13)
--- NOTE | 2024-12-21 11:14 | W.PN.HOSP.TC ---
Today's Communication/Plan
-
see A/P
Assessment / Plan
Assessment / Plan
84F with CAD s/p PCI, PAF on Eliquis, CHF, DM, HTN, CKD 3, chronic back pain, DDD; p/w acute on chronic left lumbar pain.
A/P:
Left flank pain
CT A/P shows LLL mild patchy parenchymal opacity, likely atelectasis, also GB wall thickening, moderate diffuse subcutaneous edema, slightly greater in left flank compared to right. There do not appear to be any issues with the kidneys, spleen, or
bowel, limited by noncontrast study.
The pain could be due to the acute UTI.
Due to the possibility of acute cholecystitis, surgery was consulted, abdominal ultrasound and HIDA scan were performed, which did not show acute cholecystitis. There are findings consistent with possible chronic cholecystitis and hepatic
dysfunction.
No surgical plan. Stopped heparin drip. Resumed eliquis
Diet advanced to regular, tolerated well
Discontinue IV morphine, also stopped oxycodone
COnt Tylenol and add lidocaine patch for pain control
Nausea, improved
pt c/o nausea 12/20, prn IV zofran/reglan. Getting IVF.
pt feels that nausea could be due to opiate/oxycodone, stopped
LFTs WNL, lipase WNL
Sepsis secondary to UTI, with OBIE
Urine culture on admit growing Klebsiella and E. coli, sensitive to ceftriaxone. Repeat urine cultures no growth. BCx NGTD
cont ceftriaxone
Discontinued Flagyl as HIDA negative for acute cholecystitis
OBIE on CKD stage 3
Proteinuria, 3+ albumin. 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 Diehl but he retired)
CT showed subcutaneous edema
SCr 2.2 on admission, from baseline 1.5. Monitor Cr, today at 1.9
treating UTI as above.
Patient had workup with urine 24h protein and k/l chains in 2022
consulted nephrology. Per notes could be c/w diabetic nephropathy. Trialing IVF.
outpt neph follow up, probably needs kidney biopsy if she hasn't had one
Possible persistent atrial fibrillation with RVR
s/p ablation
Cont Eliquis
rate control with Coreg and amiodarone
Pt states that she has outpt cardioversion scheduled on 12/19, has now been canceled
Card on board, defer cardioversion to outpt
CAD s/p PCI
HLD
cont statin
DM
BG controlled, increased back to home 11 units Lantus qhs and lispro 5 units TID-meals
ISS coverage
Hypothyroidism
levothyroxine 75 mcg p.o. daily
History of TIA/CVA
On Eliquis and statin
DVT prophylaxis: Eliquis
CODE STATUS: Full code
Anticipated Discharge: Within 24 hours
Subjective/Interval History
-
Date of Service: December 21, 2024
Objective Data
-
Labs:
Laboratory Results
12/21/24
05:24
WBC 11.6 H
Hgb 12.4
Hct 37.7
Plt Count 105 L
Sodium 133 L
Potassium 4.9
Chloride 108 H
Carbon Dioxide 21 L
BUN 38 H
Creatinine 1.9 H
Glucose 105 H
Calcium 8.4
Total Bilirubin 0.7
AST 25
ALT 33
Alkaline Phosphatase 119
Vital Signs:
Vital Signs
Temp Pulse Resp BP Pulse Ox
36.7 C 113 17 132/92 98
12/21/24 07:00 12/21/24 07:00 12/21/24 07:00 12/21/24 07:00 12/21/24 07:00
I&O
12/20/24 12/21/24 12/22/24
06:59 06:59 06:59
Intake Total 1615 / 1615 960 / 960
Output Total 600 / 600
Balance 1015 / 1015 960 / 960
Review of Systems
-
All other systems: Reviewed and negative
Abdomen/GI: Denies Nausea (resolved ) or Vomiting (resolved )
Physical Exam
-
General: Well Developed, Well Nourished, No Apparent Distress, Comfortable and Conversant
HEENT: Moist Mucous Membranes, Anicteric and PERRLA
Respiratory: Clear to Auscultation and Non Labored Respirations; Negative Wheezes, Rales, Rhonchi or Accessory Resp Muscle Use
Cardiac: Regular Rhythm and S1/S2; Negative Murmur, Rub or Gallop
GI: Soft, Nontender, Nondistended and Normal Bowel Sounds
Musculoskeletal: No Edema
Skin: Warm and Dry; Negative Rash, Ulcers or Lesions
Neuro: Awake and AO x 3
Psych: Calm and Intact Judgement/Insight
Data Reviewed
-
Labs: Labs Reviewed by me
--- NOTE | 2024-12-21 11:53 | W.PN.NEPH.PH ---
Today's Communication / Plan
-
cap IVF
Assessment/Plan
-
84-year-old female with past medical history of coronary artery disease s/p PCI, paroxysmal atrial fibrillation on Eliquis, cardiomyopathy with recovered EF at 55% as of May 2024 though she does have stage III diastolic dysfunction, IDDM,
hypertension, CKD stage 3, chronic back pain secondary to degenerative disc disease; p/w acute on chronic left lumbar pain.
She has been ruled out for cholecystitis based on imaging negative HIDA scan.. She has history of atrial fibrillation status post ablation. Heart rate is relatively controlled she did have a ventricular response of around 129 she is being seen by
cardiology. She has previously been scheduled for a cardioversion which has been rescheduled.
Her blood pressures have been stable and no episodes of hypotension.
Appetite has been poor for about a week. She is starting to eat more she had an episode of diarrhea today
Currently being treated for urinary tract infection.
Urine cultures grew Klebsiella and E. coli. Blood cultures negative.
She has a baseline creatinine of 1.5 and has risen up to 2.2
Impression
Acute on chronic kidney disease stage IIIb previously seen by [place] neurophysiological technician but has since retired
Cardiomyopathy diastolic with a preserved EF
Gram-negative UTI
Chronic atrial fibrillation rate controlled
Mild hyponatremia/no signs of volume overload
Plan
follow BMP
cap IVF
-
-
Date of Service: December 21, 2024
CC / HPI / ROS
-
Chief Complaint:
OBIE
History of Present Illness:
OBIE/Cr stable 1.9
Na stable low 133
K stable 4.9
Review of Systems:
nausea better today
no CP/SOB
Labs
-
Labs:
WBC 11.6 10^3/uL (4.8-10.8) H 12/21/24 05:24
RBC 3.98 10^6/uL (4.20-5.40) L 12/21/24 05:24
Hgb 12.4 g/dL (12.0-16.0) 12/21/24 05:24
Hct 37.7 % (37.0-47.0) 12/21/24 05:24
Plt Count 105 10^3/uL (130-400) L 12/21/24 05:24
Sodium 133 mmol/L (135-145) L 12/21/24 05:24
Potassium 4.9 mmol/L (3.5-5.1) 12/21/24 05:24
Chloride 108 mmol/L (98-107) H 12/21/24 05:24
Carbon Dioxide 21 mmol/L (22-30) L 12/21/24 05:24
BUN 38 mg/dl (7-17) H 12/21/24 05:24
Creatinine 1.9 mg/dL (0.6-1.0) H 12/21/24 05:24
eGFR 25.72 12/21/24 05:24
Glucose 105 mg/dl (70-99) H 12/21/24 05:24
Calcium 8.4 mg/dl (8.4-10.2) 12/21/24 05:24
Albumin 3.3 g/dl (3.5-5.0) L 12/21/24 05:24
Physical Exam
-
Vital Signs:
Vital Signs
Temp Pulse Resp BP Pulse Ox
98.0 F 113 17 132/92 98
12/21/24 07:00 12/21/24 07:00 12/21/24 07:00 12/21/24 07:00 12/21/24 07:00
Cardiovascular:: Regular rate and rhythm
Respiratory:: Bilateral: Coarse
Lung Excursion:: Normal
Abdomen:: Nontender and Soft
Bowel Sounds:: Normal
Extremity Edema:: None: Bilateral:
[2024-12-21] MEDS: LIDOCAINE 4% PATCH 1 PATCH TOPICAL (12:03)
[2024-12-21 12:13] VITALS: BP 152/108
[2024-12-21 12:18] LABS: Glucose - Point of Care 116 mg/dl (70-99)
[2024-12-21 12:23] VITALS: BP 121/85
--- NOTE | 2024-12-21 12:24 | PTCARENOTE ---
Pt with syncopal episode after using commode and then ambulating around bed back to chair. Upon sitting in the chair, became unresponsive and slumped over to L side. Staff present throughout episode - only lasted a few seconds. Pt back arose on own
and conversational immediately. VS at that time 152/108, 123, 16, 96% RA. Pt reported feeling 'fine', no nausea/headache/SOB/dizziness. 15 min VS recheck - BP 121/85, HR 108. Again pt denies any discomfort - reading menu to order lunch.
[2024-12-21 12:53] VITALS: BP 103/63; BP 107/68; BP 116/71; PULSE 107; PULSE 116; PULSE 86
[2024-12-21 15:00] VITALS: BP 106/65
[2024-12-21] MEDS: ROCEPHIN 1000 MG IV (16:23)
[2024-12-21] MEDS: STERILE WATER FOR INJECTION 10 ML IV (16:23)
[2024-12-21 17:25] LABS: Glucose - Point of Care 95 mg/dl (70-99)
[2024-12-21] MEDS: NOVOLOG FLEXPEN SC (18:16)
[2024-12-21 21:01] LABS: Glucose - Point of Care 98 mg/dl (70-99)
[2024-12-21] MEDS: CRESTOR 10 MG PO (21:13)
[2024-12-21] MEDS: TYLENOL 1000 MG PO (21:15)
[2024-12-21] MEDS: LANTUS SC (21:16)
[2024-12-21] MEDS: REMOVE LIDOCAINE PATCH 1 PATCH REMOVE (21:16)
[2024-12-21 23:35] VITALS: BP 131/77
[2024-12-22] VITALS (7 sets, daily range): BP systolic 77–123; BP diastolic 51–81; PULSE 100–108; O2SAT 97; BMI 26.5
--- NOTE | 2024-12-22 03:09 | PTCARENOTE ---
This RN was informed by [facility] that when patient was getting back into bed from the commode the patient became disoriented and less responsive and slumped into bed. similar episode occurred yesterday after getting off commode as well. when this RN
entered the room the patient was back to baseline. VSS. patient upset that staff instructed her to not use commode anymore. bed alarm placed for safety. POC ongoing.
[2024-12-22] MEDS: SYNTHROID 75 MCG PO (05:24)
[2024-12-22 06:49] LABS: Hematocrit 36.3 % (37.0-47.0); Hemoglobin 12.0 g/dL (12.0-16.0); Mean Corp Hgb Conc. 33.1 g/dL (33.0-37.0); Mean Corpuscular Volume 93.8 fL (81.0-99.0); Platelet Count 93 10^3/uL (130-400); Red Cell Dist. Width 16.9 % (11.5-14.5)
[2024-12-22 07:11] LABS: Blood Urea Nitrogen 37 mg/dl (7-17); Calcium 8.4 mg/dl (8.4-10.2); Carbon Dioxide 17 mmol/L (22-30); Chloride 111 mmol/L (98-107); Estimated Creatinine Clearance 19 ml/min; Glucose 72 mg/dl (70-99); Magnesium 2.2 mg/dl (1.6-2.3); Potassium 4.7 mmol/L (3.5-5.1); Sodium 135 mmol/L (135-145); eGFR 21.57
[2024-12-22 07:44] LABS: Glucose - Point of Care 74 mg/dl (70-99)
[2024-12-22] MEDS: NOVOLOG FLEXPEN-LOW RESISTANCE SC ×3 (07:56→17:06)
[2024-12-22] MEDS: NOVOLOG FLEXPEN SC (07:56)
[2024-12-22] MEDS: LIDOCAINE 4% PATCH 1 PATCH TOPICAL (08:46)
[2024-12-22] MEDS: LOW STRENGTH ASPIRIN 81 MG PO (08:47)
[2024-12-22] MEDS: PACERONE 200 MG PO ×2 (08:47→21:02)
[2024-12-22] MEDS: ELIQUIS 2.5 MG PO ×2 (08:47→21:02)
[2024-12-22] MEDS: IMDUR (EXTENDED RELEASE) 30 MG PO (08:47)
[2024-12-22] MEDS: COREG 12.5 MG PO ×2 (08:47→17:43)
[2024-12-22] MEDS: TYLENOL 1000 MG PO ×2 (08:48→21:05)
--- NOTE | 2024-12-22 09:54 | W.PN.HOSP.TC ---
Today's Communication/Plan
-
see A/P
Noted PT recc for SNF, daughter Eduardo already declined SNF to me
Assessment / Plan
Assessment / Plan
84F with CAD s/p PCI, PAF on Eliquis, CHF, DM, HTN, CKD 3, chronic back pain, DDD; p/w acute on chronic left lumbar pain.
A/P:
Left flank pain, much resolved, suspect due to MSK vs UTI
CT A/P shows LLL mild patchy parenchymal opacity, likely atelectasis, also GB wall thickening, moderate diffuse subcutaneous edema, slightly greater in left flank compared to right. There do not appear to be any issues with the kidneys, spleen, or
bowel, limited by noncontrast study.
Due to the possibility of acute cholecystitis, surgery was consulted, abdominal ultrasound and HIDA scan were performed, which did not show acute cholecystitis. There are findings consistent with possible chronic cholecystitis and hepatic
dysfunction.
No surgical plan. Stopped heparin drip. Resumed Eliquis.
Diet advanced to regular, tolerated well.
Discontinued IV morphine, also stopped oxycodone as pt feels opiate caused nausea.
Cont Tylenol and add lidocaine patch for pain control- pain improved significantly with local patch per pt
Nausea, resolved
pt feels that nausea was due to opiate/oxycodone, opiate stopped and nausea resolved
can cont IV Zofran PRN
Sepsis secondary to UTI, with OBIE
Urine culture on admit growing Klebsiella and E. coli, sensitive to ceftriaxone. Repeat urine cultures no growth. BCx NGTD
Received ceftriaxone for 5 days (completed treatment), stop further Abx
Discontinued Flagyl as HIDA negative for acute cholecystitis
OBIE on CKD stage 3
Proteinuria, 3+ albumin. Attempted to review old records to find cause but none available and pt doesn't know her legal archivist (previously Dr. Diehl but he retired)
CT showed subcutaneous edema
SCr 2.2 on admission, from baseline 1.5. Monitor Cr, today at 2.2
treated UTI as above.
Patient had workup with urine 24h protein and k/l chains in 2022
Renal on board
Trialed IVF, now capped.
outpt nephro follow up, probably needs kidney biopsy if she hasn't had one
Possible persistent atrial fibrillation with RVR
s/p ablation
Cont Eliquis
rate control with Coreg and amiodarone.
Coreg dose increased from 6.25 BID to 12.5 mg BID by card
Pt states that she has outpt cardioversion scheduled on 12/19, has now been canceled
Card on board, defer cardioversion to outpt
CAD s/p PCI
HLD
cont statin
DM
BG controlled,
Decrease HOUSEKEEPER Lantus from 11 units to 5 units HS, and decrease HOUSEKEEPER aspart to 3 units AC to avoid hypoglycemia- RN and daughter informed of change
ISS coverage
Hypothyroidism
levothyroxine 75 mcg p.o. daily
History of TIA/CVA
On Eliquis and statin
Syncope 12/21 following using the commode and BM, suspect vasovagal, could also have component of orthostatic hypotension
orthostatic negative 12/21 but positive 12/22 with PT
Requested card to address current coreg dose
Start trial of compression therapy with SRINIVAS wrap and abdominal binder
Informed RN to cont to monitor clinically, cont bed alarm, fall precaution etc.
DVT prophylaxis: Eliquis
CODE STATUS: Full code
Informed by hospital risk admin that family has placed a complaint to patient guest relations and the state.
Family's main concerns are that the patient's left flank pain has not been addressed and that she has not been able to get cardioverted while in the hospital.
I spoke with daughter Eduardo extensively on the phone.
I explained that at this moment, her mother's left flank pain has much resolved. Her pain is likely MSL in nature and possibly UTI related. The fact that the pain is much better with local application of pain patch is consistent with MSL in
etiology. There is no imaging test for MSL pain and this is a clinical diagnosis. Her admission CT AP was also largely unrevealing.
With regard to the patient's need for cardioversion or not, I have informed the daughter that this is to be addressed by the cardiology team. I explained that it is possible that the road roller engineer only wants to do cardioversion outpatient due to
possible interruption of anticoagulation (at the time when we were unsure if she had acute dinorah or not, and possible may need surgery). I explained to daughter that based on this, it would be reasonable to wait for outpatient cardioversion.
However, I will defer to cardiology team on this.
I have also asked cardiology team to reeval pt's current coreg dose (may have contributed to her orthostatic hypotension).
The patient's problem lists was discussed one by one with daughter Eduardo.
I also informed her that we are waiting for updated PT note from today, and if SNF is recommended we could work on that.
Eduardo immediately declined SNF due to previous bad experience. She then started complaining about her mother's previous bad hospital experience.
DW RN
total time spent today was > 50 min
Anticipated Discharge: > 48 hours
Subjective/Interval History
-
Date of Service: December 22, 2024
Objective Data
-
Labs:
Laboratory Results
12/22/24
06:20
WBC 10.9 H
Hgb 12.0
Hct 36.3 L
Plt Count 93 L
Sodium 135
Potassium 4.7
Chloride 111 H
Carbon Dioxide 17 L
BUN 37 H
Creatinine 2.2 H
Glucose 72
Calcium 8.4
Vital Signs:
Vital Signs
Temp Pulse Resp BP Pulse Ox
36.5 C 110 18 122/81 97
12/22/24 07:23 12/22/24 08:47 12/22/24 07:23 12/22/24 08:47 12/22/24 09:09
I&O
12/21/24 12/22/24 12/23/24
06:59 06:59 06:59
Intake Total 960 / 960 1200 / 1200
Balance 960 / 960 1200 / 1200
Review of Systems
-
All other systems: Reviewed and negative
Abdomen/GI: Denies Nausea (resolved ) or Vomiting (resolved )
Physical Exam
-
General: Well Developed, Well Nourished, No Apparent Distress, Comfortable and Conversant
Respiratory: Clear to Auscultation and Non Labored Respirations; Negative Accessory Resp Muscle Use
Cardiac: S1/S2 and Irregular Rhythm; Negative Murmur, Rub or Gallop
GI: Soft, Nontender, Nondistended and Normal Bowel Sounds
Musculoskeletal: No Edema
Skin: Warm and Dry; Negative Rash, Ulcers or Lesions
Neuro: Awake and AO x 3
Psych: Calm and Intact Judgement/Insight
Data Reviewed
-
Labs: Labs Reviewed by me
[2024-12-22 11:37] LABS: Glucose - Point of Care 139 mg/dl (70-99)
--- NOTE | 2024-12-22 11:56 | W.PN.CARDCBS ---
Addendum entered and electronically signed by Guerrero Mcdowell MD 12/22/24 14:10:
I saw and examined the patient.
The Hide And Skin Fleshing Machine Operator's note was reviewed and I agree with the note.
Comment: Briefly, 84-year-old woman past medical history of persistent atrial fibrillation with prior PVI who presents with flank pain and was worked up for possible acute cholecystitis.
Patient is currently in rate controlled atrial fibrillation
Coreg dose was increased however she has been experiencing dizziness and had an episode of syncope after ambulating back from the commode
Decrease carvedilol dose to 6.25 mg a.m. and 12.5 mg p.m.
Continue amiodarone 200 mg twice daily for adjunct rate control
Monitor heart rates and blood pressures. If we are unable to control atrial fibrillation can reevaluate timing of direct-current cardioversion, but would favor discharging and returning for DCCV as an outpatient.
Cont Eliquis 2.5mg BID (age, Cr) for risk reduction of cardioembolic stroke
Original Note:
Today's Communication / Plan
-
adjusted coreg to 6.25mg AM and 12.5mg PM
follow ortho VS
follow Cr
treating for UTI
would favor OP CV to allow patient to recover however will continue to reevaluate
d/w daughter
Impression / Plan
-
Primary insurance policy clerk is Dr. Cam Read
Primary care provider is Dr. Susie Jarquin PA-C
Assessment:
L flank pain, suspected musculoskeletal vs UTI
Concern for acute cholecystitis with negative HIDA
Persistent atrial fibrillation
PVI for AF March 29, 2024
Developed symptomatic atrial fibrillation in November 2024
Was planned for cardioversion December 19, 2024, cancelled as inpatient
Heart failure with reduced ejection fraction - > improved after PVI
Orthostatic hypotension
Coronary artery disease
Chronic kidney disease, stage IIIb
Diabetes mellitus type 2
CVA in 2013
Hypertension
Dyslipidemia
Echo 04/01/2022: EF 55%, mild cLVH, stage II diastolic dysfunction, mild MAC, mild to moderate MR, mild AI
Echo 03/17/2024: EF 35%, moderate tricuspid regurgitation and elevated pulmonary artery pressures estimated at 55-60 mmHg.
Echo 03/30/2024: Urgent bedside study in the setting of rapid response, EF 40 to 45%, no evidence of pericardial effusion
Echo 06/04/2024: LVEF improved/normalized to 55 to 60%. There is possible basal septal akinesis and basal inferior hypokinesis.
Recommendations:
- Patient initially presented due to complaints of left flank pain. There was initial concern for acute cholecystitis and patient underwent HIDA scan which was negative. She is now being treated for a UTI
- Nephrology also following as patient has had fluctuating renal function since admission, possibly related to UTI as well
- Patient had PVI in 03/2024. had been scheduled for outpatient cardioversion for recurrence of A-fib on 12/19/2024, however as was being worked up for possible cholecystectomy, cardioversion was canceled. She was scheduled to see Dr. Read in
office 01/04 at which point we could reschedule outpatient cardioversion
- During hospitalization, we had uptitrated her Coreg dose from 6.25 mg to 12.5 mg twice daily. She has also been maintained on amiodarone 200 mg twice daily
- She remains in A-fib, however heart rates are controlled on review of telemetry
- continue eliquis
- Yesterday after having a bowel movement, she got up and ambulated back to the chair, however then was noted to have a syncopal episode, felt to be vasovagal versus orthostatic. She was not on telemetry at the time. She had an additional episode
of dizziness earlier today, and orthostatics were positive. Compression stockings have been placed as well as abdominal binder. Will adjust coreg dose to 6.25mg AM and 12.5mg PM and follow. She is also on Imdur 30 mg daily as outpatient for
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
- discussed ideally would allow patient to recover from admission prior to CV, however we would see how patient progresses over next 24-48 hours and would not rule out considering for CV on Wednesday if needed (HRs refractory, patient symptomatic).
- called and discussed above with patient's daughter, Yesenia via telephone. she would like daily updates.
- d/w hospitalist
of note, there was initial concern that patient's OAC had been interrupted during hospitalization however appears patient was transitioned to IV heparin while off eliquis so would not require NADJA.
Progress Note - Cell Preparer
Subjective
Date of Service: December 22, 2024
no palpitations, CP, SOB.
Objective
Labs:
12/22/24 06:20
12/22/24 06:20
Labs
Hgb 12.0 g/dL (12.0-16.0) 12/22/24 06:20
Hct 36.3 % (37.0-47.0) L 12/22/24 06:20
Plt Count 93 10^3/uL (130-400) L 12/22/24 06:20
APTT 122.6 Sec (23.4-35.0) H 12/18/24 19:27
Sodium 135 mmol/L (135-145) 12/22/24 06:20
Potassium 4.7 mmol/L (3.5-5.1) 12/22/24 06:20
BUN 37 mg/dl (7-17) H 12/22/24 06:20
Creatinine 2.2 mg/dL (0.6-1.0) H 12/22/24 06:20
Glucose 72 mg/dl (70-99) 12/22/24 06:20
Vital Signs and I&O:
Vital Signs
Temp Pulse Resp BP Pulse Ox
98.1 F 99 18 107/64 96
12/22/24 10:49 12/22/24 10:49 12/22/24 10:49 12/22/24 10:49 12/22/24 10:49
Vital Signs
Temp Pulse Resp BP Pulse Ox
98.1 F 99 18 107/64 96
12/22/24 10:49 12/22/24 10:49 12/22/24 10:49 12/22/24 10:49 12/22/24 10:49
Intake & Output
12/20/24 12/21/24 12/22/24 12/23/24
07:59 07:59 07:59 07:59
Intake Total 1615 / 1615 960 / 960 1200 / 1200
Output Total 600 / 600
Balance 1015 / 1015 960 / 960 1200 / 1200
Physical Exam
Physical Exam
GEN: No distress, awake, alert, oriented x3
HEENT: supple, anicteric, mmm, eomi
LUNGS: CTA B/L, no wheezes/rales
CV: Irreg, S1/S2, no murmur
ABD: soft, BS+, NT/ND
EXT: No cyanosis, clubbing, edema
NEURO: Gross non-focal
SKIN: Warm, pink, dry. No rash
[2024-12-22] MEDS: NOVOLOG FLEXPEN 3 UNITS SC ×2 (13:11→17:43)
--- NOTE | 2024-12-22 14:05 | W.PN.NEPH.PH ---
Today's Communication / Plan
-
AM labs
Assessment/Plan
-
84-year-old female with past medical history of coronary artery disease s/p PCI, paroxysmal atrial fibrillation on Eliquis, cardiomyopathy with recovered EF at 55% as of May 2024 though she does have stage III diastolic dysfunction, IDDM,
hypertension, CKD stage 3, chronic back pain secondary to degenerative disc disease; p/w acute on chronic left lumbar pain.
She has been ruled out for cholecystitis based on imaging negative HIDA scan.. She has history of atrial fibrillation status post ablation. Heart rate is relatively controlled she did have a ventricular response of around 129 she is being seen by
cardiology. She has previously been scheduled for a cardioversion which has been rescheduled.
Her blood pressures have been stable and no episodes of hypotension.
Appetite has been poor for about a week. She is starting to eat more she had an episode of diarrhea today
Currently being treated for urinary tract infection.
Urine cultures grew Klebsiella and E. coli. Blood cultures negative.
She has a baseline creatinine of 1.5 and has risen up to 2.2
Impression
Acute on chronic kidney disease stage IIIb previously seen by Telephone child care teacher but has since retired
Cardiomyopathy diastolic with a preserved EF
Gram-negative UTI
Chronic atrial fibrillation rate controlled
Mild hyponatremia/no signs of volume overload
Plan
follow BMP
cap IVF
Creatinine up slightly to 2.2 recheck a.m. labs ordered
-
-
Date of Service: December 22, 2024
CC / HPI / ROS
-
Chief Complaint:
OBIE
History of Present Illness:
OBIE/Cr stable 1.9
Na stable low 133
K stable 4.9
Review of Systems:
nausea better today
no CP/SOB
Labs
-
Labs:
WBC 10.9 10^3/uL (4.8-10.8) H 12/22/24 06:20
RBC 3.87 10^6/uL (4.20-5.40) L 12/22/24 06:20
Hgb 12.0 g/dL (12.0-16.0) 12/22/24 06:20
Hct 36.3 % (37.0-47.0) L 12/22/24 06:20
Plt Count 93 10^3/uL (130-400) L 12/22/24 06:20
Sodium 135 mmol/L (135-145) 12/22/24 06:20
Potassium 4.7 mmol/L (3.5-5.1) 12/22/24 06:20
Chloride 111 mmol/L (98-107) H 12/22/24 06:20
Carbon Dioxide 17 mmol/L (22-30) L 12/22/24 06:20
BUN 37 mg/dl (7-17) H 12/22/24 06:20
Creatinine 2.2 mg/dL (0.6-1.0) H 12/22/24 06:20
eGFR 21.57 12/22/24 06:20
Glucose 72 mg/dl (70-99) 12/22/24 06:20
Calcium 8.4 mg/dl (8.4-10.2) 12/22/24 06:20
Albumin 3.3 g/dl (3.5-5.0) L 12/21/24 05:24
Physical Exam
-
Vital Signs:
Vital Signs
Temp Pulse Resp BP Pulse Ox
98.1 F 99 18 107/64 96
12/22/24 10:49 12/22/24 10:49 12/22/24 10:49 12/22/24 10:49 12/22/24 10:49
Cardiovascular:: Regular rate and rhythm
Respiratory:: Bilateral: Coarse
Lung Excursion:: Normal
Abdomen:: Nontender and Soft
Bowel Sounds:: Normal
Extremity Edema:: None: Bilateral:
--- NOTE | 2024-12-22 16:00 | CM ---
Discharge POC: Therapy recommendation today is for SNF. Previous was HH. Daughter discussed with attending and said they do not want SNF. This CM spoke with daughter to confirm. Family had bad experience in past with SNF. They want -HH for
RN, PT/OT. Referral will be placed.
[2024-12-22 16:44] LABS: Glucose - Point of Care 136 mg/dl (70-99)
[2024-12-22] MEDS: REMOVE LIDOCAINE PATCH 1 PATCH REMOVE (21:02)
[2024-12-22] MEDS: CRESTOR 10 MG PO (21:02)
[2024-12-22 21:22] LABS: Glucose - Point of Care 169 mg/dl (70-99)
[2024-12-22] MEDS: LANTUS 0.05 UNITS SC (21:42)
[2024-12-23 03:32] VITALS: BP 126/72
[2024-12-23] MEDS: SYNTHROID 75 MCG PO (05:45)
[2024-12-23 06:05] VITALS: BMI 26.0
[2024-12-23 07:21] VITALS: BP 112/76
[2024-12-23 07:49] LABS: Hematocrit 37.8 % (37.0-47.0); Hemoglobin 12.3 g/dL (12.0-16.0); Mean Corp Hgb Conc. 32.5 g/dL (33.0-37.0); Mean Corpuscular Volume 93.6 fL (81.0-99.0); Nucleated Red Blood Cells % 0.4 %; Platelet Count 101 10^3/uL (130-400); Red Cell Dist. Width 16.9 % (11.5-14.5)
[2024-12-23 07:54] LABS: Glucose - Point of Care 148 mg/dl (70-99)
[2024-12-23] MEDS: PACERONE 200 MG PO ×2 (07:55→20:03)
[2024-12-23] MEDS: ELIQUIS 2.5 MG PO ×2 (07:55→20:03)
[2024-12-23] MEDS: IMDUR (EXTENDED RELEASE) 30 MG PO (07:55)
[2024-12-23] MEDS: LOW STRENGTH ASPIRIN 81 MG PO (07:55)
[2024-12-23] MEDS: COREG 6.25 MG PO (07:55)
[2024-12-23] MEDS: LIDOCAINE 4% PATCH 1 PATCH TOPICAL (07:55)
[2024-12-23] MEDS: NOVOLOG FLEXPEN 3 UNITS SC ×3 (07:56→16:32)
[2024-12-23] MEDS: NOVOLOG FLEXPEN-LOW RESISTANCE SC (07:56)
[2024-12-23] MEDS: TYLENOL 1000 MG PO ×2 (08:04→20:14)
[2024-12-23 10:16] LABS: Blood Urea Nitrogen 37 mg/dl (7-17); Calcium 8.4 mg/dl (8.4-10.2); Carbon Dioxide 17 mmol/L (22-30); Chloride 111 mmol/L (98-107); Estimated Creatinine Clearance 18 ml/min; Glucose 152 mg/dl (70-99); Potassium 5.1 mmol/L (3.5-5.1); Sodium 135 mmol/L (135-145); eGFR 20.45
[2024-12-23 11:07] VITALS: BP 120/75
[2024-12-23 11:35] LABS: Glucose - Point of Care 174 mg/dl (70-99)
[2024-12-23] MEDS: NOVOLOG FLEXPEN-LOW RESISTANCE 1 UNITS SC ×2 (11:40→16:31)
--- NOTE | 2024-12-23 11:59 | W.PN.CARDCBS ---
Addendum entered and electronically signed by Ramy Kinney DO 12/23/24 15:38:
I saw and examined the patient.
The Human Services Care Specialist's note was reviewed and I agree with the note.
Comment:
Plan:
Patient initially presented due to complaints of left flank pain. There was initial concern for acute cholecystitis and patient underwent HIDA scan which was negative. She is now being treated for a UTI. Patient has known paroxysmal to persistent
Afib and h/o tachycardia mediated CM. Patient had successful PVI 03/29/24 and had her first clinically significant documented recurrence of Afib 11/2024. Patient saw Dr. Read in the office 12/11/24 and was recommended an attempt at CV 12/19/24, but
patient then admitted as noted above. Due to possible need for cholecystectomy CV was cancelled, but patient was cleared following GI work-up.
Patient remains in persistent Afib and there was an attempt to increase Coreg dose this admission, but dose then reduced following an episode of syncope.
Plan is for cardioversion on Wednesday, December 25 with reevaluation with EP as an outpatient.
Multiple family members were updated at bedside by me as well as via telephone by Mary SERRANO and they were satisfied with information and update and they were appreciative
Original Note:
Today's Communication / Plan
-
CV on Wednesday
Impression / Plan
-
Primary clinical services director is Dr. Cam Read
Primary care provider is Dr. Susie Jarquin PA-C
Assessment:
L flank pain, suspected musculoskeletal vs UTI
Concern for acute cholecystitis with negative HIDA
Paroxysmal to persistent atrial fibrillation
s/p PVI for AF 03/29/24
Developed symptomatic atrial fibrillation in November 2024 and was planned for outpatient CV but ended up admitted as noted above
Chronic HF improved EF
Presumably tachcyardia mediated CM EF 35% by echo 03/17/24 and improved to 55% by echo 06/04/24
Orthostatic hypotension
Coronary artery disease
Chronic kidney disease, stage IIIb
Diabetes mellitus type 2
CVA in 2013
Hypertension
Dyslipidemia
Echo 04/01/2022: EF 55%, mild cLVH, stage II diastolic dysfunction, mild MAC, mild to moderate MR, mild AI
Echo 03/17/2024: EF 35%, moderate tricuspid regurgitation and elevated pulmonary artery pressures estimated at 55-60 mmHg.
Echo 03/30/2024: Urgent bedside study in the setting of rapid response, EF 40 to 45%, no evidence of pericardial effusion
Echo 06/04/2024: LVEF improved/normalized to 55 to 60%. There is possible basal septal akinesis and basal inferior hypokinesis.
Recommendations:
-Patient initially presented due to complaints of left flank pain. There was initial concern for acute cholecystitis and patient underwent HIDA scan which was negative. She is now being treated for a UTI
-Patient has known paroxysmal to persistent Afib and h/o tachycardia mediated CM. Patient had successful PVI 03/29/24 and had her first clinically significant documented recurrence of Afib 11/2024. Patient saw Dr. Read in the office 12/11/24 and
was recommended an attempt at CV 12/19/24, but patient then admitted as noted above. Due to possible need for cholecystectomy CV was cancelled, but patient was cleared following GI work-up.
-Patient remains in persistent Afib and there was an attempt to increase Coreg dose this admission, but dose then reduced following an episode of syncope.
-Talked with patient and family including both of her daughters, Yesenia and Nallely, plus patient's and a son in law by phone on 12/23/24, we talked for 21 minutes. We reviewed admission thus far and recurrence of Afib. We reviewed that the
Coreg is meant to help with rate control, but can lower BP and could be precipitating orthostasis and syncope. We also talked about amiodarone being used for adjunct rate control, but that patient has been poorly tolerant of amiodarone in the past,
it makes her feel ill. Given that this is the first clinically significant documented recurrence of Afib we made a plan to proceed with CV Wednesday and if CV fails or patient rapidly recurs with Afib then next option is ablate and pace. We discussed
what ablate and pace option is, I spelled out terms and asked them to also do some of their own research. Plan would be PPM and following a period of healing we would proceed with AV node ablation. We discussed that this would make patient pacemaker
dependent, but would alleviated symptomatic Afib and the need for rate controlling meds like Coreg and amiodarone. Explained that patient would still be in Afib, but HR would be controlled by pacer.
-Nursing garment supervisor updated with add on CV by me 12/23/24
Progress Note - Nut Chopper
Subjective
Date of Service: December 23, 2024
She is tired, doesn't feel much better from when she came in
Objective
Labs:
12/23/24 07:11
12/23/24 09:39
Labs
Hgb 12.3 g/dL (12.0-16.0) 12/23/24 07:11
Hct 37.8 % (37.0-47.0) 12/23/24 07:11
Plt Count 101 10^3/uL (130-400) L 12/23/24 07:11
APTT 122.6 Sec (23.4-35.0) H 12/18/24 19:27
Sodium 135 mmol/L (135-145) 12/23/24 09:39
Potassium 5.1 mmol/L (3.5-5.1) 12/23/24 09:39
BUN 37 mg/dl (7-17) H 12/23/24 09:39
Creatinine 2.3 mg/dL (0.6-1.0) H 12/23/24 09:39
Glucose 152 mg/dl (70-99) H 12/23/24 09:39
Vital Signs and I&O:
Vital Signs
Temp Pulse Resp BP Pulse Ox
98.1 F 97 17 120/75 97
12/23/24 11:07 12/23/24 11:07 12/23/24 11:07 12/23/24 11:07 12/23/24 11:07
Vital Signs
Temp Pulse Resp BP Pulse Ox
98.1 F 97 17 120/75 97
12/23/24 11:07 12/23/24 11:07 12/23/24 11:07 12/23/24 11:07 12/23/24 11:07
Intake & Output
12/21/24 12/22/24 12/23/24 12/24/24
06:59 06:59 06:59 06:59
Intake Total 960 / 960 1200 / 1200 600 / 600
Balance 960 / 960 1200 / 1200 600 / 600
Physical Exam
Physical Exam
GEN: NAD
HEENT: EOMI
LUNGS: RA
CV: Afib on tele
--- NOTE | 2024-12-23 14:29 | W.PN.HOSP.TC ---
Today's Communication/Plan
-
remains tachy, coreg dosing adjusted for orthostatic hypotension
d/w cardiology about plan of care
Assessment / Plan
Assessment / Plan
84F with CAD s/p PCI, PAF on Eliquis, CHF, DM, HTN, CKD 3, chronic back pain, DDD; p/w acute on chronic left lumbar pain.
A/P:
Persistent atrial fibrillation with RVR�symptomatic
s/p ablation
Cont Eliquis
rate control with Coreg and amiodarone. Patient feeling lightheaded and fatigued with this medication
Coreg dose increased from 6.25 BID to 12.5 mg BID by card however patient had a syncopal event, so this was reduced to use 6.2 5 in the morning and 12.5 in the
outpt cardioversion was scheduled on 12/19, has now been rescheduled to be done inpatient on Monday 12/25 given her severe symptoms
Cardiology managing
Left flank pain
Improved, suspect due to MSK vs UTI
CT A/P shows LLL mild patchy parenchymal opacity, likely atelectasis, also GB wall thickening, moderate diffuse subcutaneous edema, slightly greater in left flank compared to right. There do not appear to be any issues with the kidneys, spleen, or
bowel, limited by noncontrast study.
Due to the possibility of acute cholecystitis, surgery was consulted, abdominal ultrasound and HIDA scan were performed, which did not show acute cholecystitis. There are findings consistent with possible chronic cholecystitis and hepatic
dysfunction.
No surgical plan. Stopped heparin drip. Resumed Eliquis.
Diet advanced to regular, tolerated well.
Discontinued IV morphine, also stopped oxycodone as pt feels opiate caused nausea.
Cont Tylenol and add lidocaine patch for pain control- pain improved significantly with local patch per pt. Patient reports she deals with the same left flank pain at home as well and uses Salonpas for it
Nausea, resolved
pt feels that nausea was due to opiate/oxycodone, opiate stopped and nausea resolved
can cont IV Zofran PRN
Sepsis secondary to UTI, with OBIE
Urine culture on admit growing Klebsiella and E. coli, sensitive to ceftriaxone. Repeat urine cultures no growth. BCx NGTD
Received ceftriaxone for 5 days (completed treatment), stop further Abx
Discontinued Flagyl as HIDA negative for acute cholecystitis
OBIE on CKD stage 3
Proteinuria, 3+ albumin. 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 Diehl but he retired)
CT showed subcutaneous edema
SCr 2.2 on admission, from baseline 1.5. Monitor Cr, today at 2.3
treated UTI as above.
Patient had workup with urine 24h protein and k/l chains in 2022. Per neph this may just be diabetic nephropathy
Renal on board
Trialed IVF, now capped.
outpt nephro follow up, probably needs kidney biopsy if she hasn't had one
CAD s/p PCI
HLD
cont statin
DM
BG controlled,
Decrease SENIOR SAFETY SUPPORT MANAGER Lantus from 11 units to 5 units HS, and decrease SENIOR SAFETY SUPPORT MANAGER aspart to 3 units AC to avoid hypoglycemia- RN and daughter informed of change
ISS coverage
Hypothyroidism
levothyroxine 75 mcg p.o. daily
History of TIA/CVA
On Eliquis and statin
Syncopal episode
12/21 following using the commode and BM, suspect vasovagal, could also have component of orthostatic hypotension
orthostatic negative 12/21 but positive 12/22 with PT
could be due to increased coreg
Start trial of compression therapy with SRINIVAS wrap and abdominal binder
Informed RN to cont to monitor clinically, cont bed alarm, fall precaution etc.
DVT prophylaxis: Eliquis
CODE STATUS: Full code
Anticipated Discharge: > 48 hours
Subjective/Interval History
-
Date of Service: December 23, 2024
Patient feeling unwell, states due to amiodarone, had orthostatic event due to metoprolol being increased. States she does not feel palpitations but she has A-fib. Patient tells me that she is going to be getting a CV tomorrow by cardiology. Her
nausea is resolved after stopping opioids, her left flank pain is currently resolved with lidocaine patch, but she does note it has happened intermittently.
Objective Data
-
Labs:
Laboratory Results
12/23/24 12/23/24
07:11 09:39
WBC 10.8
Hgb 12.3
Hct 37.8
Plt Count 101 L
Sodium Cancelled 135
Potassium Cancelled 5.1
Chloride Cancelled 111 H
Carbon Dioxide Cancelled 17 L
BUN Cancelled 37 H
Creatinine Cancelled 2.3 H
Glucose Cancelled 152 H
Calcium Cancelled 8.4
Vital Signs:
Vital Signs
Temp Pulse Resp BP Pulse Ox
98.1 F 97 17 120/75 97
12/23/24 11:07 12/23/24 11:07 12/23/24 11:07 12/23/24 11:07 12/23/24 11:07
I&O
12/22/24 12/23/24 12/24/24
06:59 06:59 06:59
Intake Total 1200 / 1200 600 / 600
Balance 1200 / 1200 600 / 600
Review of Systems
-
All other systems: Reviewed and negative
Abdomen/GI: Denies Nausea (resolved ) or Vomiting (resolved )
Physical Exam
-
General: Well Developed, Well Nourished, No Apparent Distress, Comfortable and Conversant
Respiratory: Clear to Auscultation and Non Labored Respirations; Negative Accessory Resp Muscle Use
Cardiac: S1/S2 and Irregular Rhythm; Negative Murmur, Rub or Gallop
GI: Soft, Nontender, Nondistended and Normal Bowel Sounds
Musculoskeletal: No Edema
Skin: Warm and Dry; Negative Rash, Ulcers or Lesions
Neuro: Awake and AO x 3
Psych: Calm and Intact Judgement/Insight
Data Reviewed
-
Labs: Labs Reviewed by me
--- NOTE | 2024-12-23 15:00 | W.PN.NEPH.PH ---
Today's Communication / Plan
-
am labs
Assessment/Plan
-
84-year-old female with past medical history of coronary artery disease s/p PCI, paroxysmal atrial fibrillation on Eliquis, cardiomyopathy with recovered EF at 55% as of May 2024 though she does have stage III diastolic dysfunction, IDDM,
hypertension, CKD stage 3, chronic back pain secondary to degenerative disc disease; p/w acute on chronic left lumbar pain.
She has been ruled out for cholecystitis based on imaging negative HIDA scan.. She has history of atrial fibrillation status post ablation. Heart rate is relatively controlled she did have a ventricular response of around 129 she is being seen by
cardiology. She has previously been scheduled for a cardioversion which has been rescheduled.
Her blood pressures have been stable and no episodes of hypotension.
Appetite has been poor for about a week. She is starting to eat more she had an episode of diarrhea today
Currently being treated for urinary tract infection.
Urine cultures grew Klebsiella and E. coli. Blood cultures negative.
She has a baseline creatinine of 1.5 and has risen up to 2.2
Impression
Acute on chronic kidney disease stage IIIb previously seen by [place] shoulder pad molder but has since retired
Cardiomyopathy diastolic with a preserved EF
Gram-negative UTI
Chronic atrial fibrillation rate controlled
Mild hyponatremia/no signs of volume overload
Plan
follow BMP
cap IVF
Creatinine up slightly to 2.2 recheck a.m. labs ordered
AF w RVR=cardioverion wednesday
cr up from afib. wts up but stable
-
-
Date of Service: December 23, 2024
CC / HPI / ROS
-
Chief Complaint:
OBIE
History of Present Illness:
OBIE/Cr stable 1.9
Na stable low 133
K stable 4.9
Review of Systems:
nausea better today
no CP/SOB
Labs
-
Labs:
WBC 10.8 10^3/uL (4.8-10.8) 12/23/24 07:11
RBC 4.04 10^6/uL (4.20-5.40) L 12/23/24 07:11
Hgb 12.3 g/dL (12.0-16.0) 12/23/24 07:11
Hct 37.8 % (37.0-47.0) 12/23/24 07:11
Plt Count 101 10^3/uL (130-400) L 12/23/24 07:11
Sodium 135 mmol/L (135-145) 12/23/24 09:39
Potassium 5.1 mmol/L (3.5-5.1) 12/23/24 09:39
Chloride 111 mmol/L (98-107) H 12/23/24 09:39
Carbon Dioxide 17 mmol/L (22-30) L 12/23/24 09:39
BUN 37 mg/dl (7-17) H 12/23/24 09:39
Creatinine 2.3 mg/dL (0.6-1.0) H 12/23/24 09:39
eGFR 20.45 12/23/24 09:39
Glucose 152 mg/dl (70-99) H 12/23/24 09:39
Calcium 8.4 mg/dl (8.4-10.2) 12/23/24 09:39
Albumin 3.3 g/dl (3.5-5.0) L 12/21/24 05:24
Physical Exam
-
Vital Signs:
Vital Signs
Temp Pulse Resp BP Pulse Ox
98.1 F 97 17 120/75 97
12/23/24 11:07 12/23/24 11:07 12/23/24 11:07 12/23/24 11:07 12/23/24 11:07
Cardiovascular:: Regular rate and rhythm
Respiratory:: Bilateral: Coarse
Lung Excursion:: Normal
Abdomen:: Nontender and Soft
Bowel Sounds:: Normal
Extremity Edema:: None: Bilateral:
--- NOTE | 2024-12-23 15:06 | CM ---
patient seen at bedside
PT rec SNF
patient/dtr decline SNF
referral in [facility] for [facility]
PLAN: home with [facility] when stable
[2024-12-23 15:20] VITALS: BP 121/72
[2024-12-23 16:29] LABS: Glucose - Point of Care 171 mg/dl (70-99)
[2024-12-23] MEDS: COREG 12.5 MG PO (16:32)
[2024-12-23 19:45] VITALS: BP 139/82
[2024-12-23] MEDS: ZOFRAN 4 MG IV (20:03)
[2024-12-23] MEDS: REMOVE LIDOCAINE PATCH 1 PATCH REMOVE (20:10)
[2024-12-23 20:34] LABS: Glucose - Point of Care 135 mg/dl (70-99)
[2024-12-23] MEDS: CRESTOR 10 MG PO (21:09)
[2024-12-23] MEDS: LANTUS 0.05 UNITS SC (21:09)
[2024-12-23 23:41] VITALS: BP 124/80
[2024-12-24] VITALS (7 sets, daily range): BP systolic 96–144; BP diastolic 58–89; PULSE 95–108; BMI 26.3
[2024-12-24 07:38] LABS: Glucose - Point of Care 119 mg/dl (70-99)
[2024-12-24] MEDS: SYNTHROID PO (08:17)
[2024-12-24] MEDS: NOVOLOG FLEXPEN-LOW RESISTANCE SC (08:17)
[2024-12-24] MEDS: LIDOCAINE 4% PATCH 1 PATCH TOPICAL (09:04)
[2024-12-24] MEDS: IMDUR (EXTENDED RELEASE) 30 MG PO (09:08)
[2024-12-24] MEDS: PACERONE 200 MG PO ×2 (09:08→19:53)
[2024-12-24] MEDS: ELIQUIS 2.5 MG PO ×2 (09:09→19:52)
[2024-12-24] MEDS: LOW STRENGTH ASPIRIN 81 MG PO (09:09)
[2024-12-24] MEDS: COREG 6.25 MG PO (09:09)
[2024-12-24] MEDS: NOVOLOG FLEXPEN 3 UNITS SC ×3 (09:10→17:25)
[2024-12-24] MEDS: TYLENOL 1000 MG PO ×2 (10:26→19:52)
[2024-12-24 10:30] LABS: Hematocrit 41.2 % (37.0-47.0); Hemoglobin 12.8 g/dL (12.0-16.0); Mean Corp Hgb Conc. 31.1 g/dL (33.0-37.0); Mean Corpuscular Volume 96.3 fL (81.0-99.0); Platelet Count 103 10^3/uL (130-400); Red Cell Dist. Width 17.3 % (11.5-14.5)
[2024-12-24 10:36] LABS: Blood Urea Nitrogen 36 mg/dl (7-17); Calcium 8.5 mg/dl (8.4-10.2); Carbon Dioxide 19 mmol/L (22-30); Chloride 109 mmol/L (98-107); Estimated Creatinine Clearance 18 ml/min; Glucose 110 mg/dl (70-99); Potassium 4.8 mmol/L (3.5-5.1); Sodium 136 mmol/L (135-145); eGFR 20.45
--- NOTE | 2024-12-24 11:14 | W.PN.HOSP.TC ---
Today's Communication/Plan
-
remains tachy to 107, nauseous
Plan is for CV tomorrow
Assessment / Plan
Assessment / Plan
84F with CAD s/p PCI, PAF on Eliquis, CHF, DM, HTN, CKD 3, chronic back pain, DDD; p/w acute on chronic left lumbar pain.
A/P:
Persistent atrial fibrillation with RVR�symptomatic
s/p ablation
Cont Eliquis
rate control with Coreg and amiodarone. Patient feeling lightheaded and fatigued with this medication, now also complaining of nausea
Coreg dose increased from 6.25 BID to 12.5 mg BID by cards however patient had a syncopal event, so this was reduced to use 6.2 5 in the morning and 12.5 in the evening
outpt cardioversion was scheduled on 12/19, has now been rescheduled to be done inpatient on Monday 12/25 given her severe symptoms
Cardiology managing
Left flank pain
Improved, suspect due to MSK vs UTI
CT A/P shows LLL mild patchy parenchymal opacity, likely atelectasis, also GB wall thickening, moderate diffuse subcutaneous edema, slightly greater in left flank compared to right. There do not appear to be any issues with the kidneys, spleen, or
bowel, limited by noncontrast study.
Due to the possibility of acute cholecystitis, surgery was consulted, abdominal ultrasound and HIDA scan were performed, which did not show acute cholecystitis. There are findings consistent with possible chronic cholecystitis and hepatic
dysfunction.
No surgical plan. Stopped heparin drip. Resumed Eliquis.
Diet advanced to regular, tolerated well.
Discontinued IV morphine, also stopped oxycodone as pt feels opiate caused nausea.
Cont Tylenol and add lidocaine patch for pain control- pain improved significantly with local patch per pt. Patient reports she deals with the same left flank pain at home as well and uses Salonpas for it
Nausea
pt feels that nausea was due to opiate/oxycodone, opiate stopped, amiodarone could be contributing
can cont IV Zofran PRN
Sepsis secondary to UTI, with OBIE�resolved
Urine culture on admit growing Klebsiella and E. coli, sensitive to ceftriaxone. Repeat urine cultures no growth. BCx NGTD
Received ceftriaxone for 5 days (completed treatment), stopped further Abx
Discontinued Flagyl as HIDA negative for acute cholecystitis
OBIE on CKD stage 3
Proteinuria, 3+ albumin. 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 Diehl but he retired)
CT showed subcutaneous edema
SCr 2.2 on admission, from baseline 1.5. Monitor Cr, today at 2.3
treated UTI as above.
Patient had workup with urine 24h protein and k/l chains in 2022. Per neph this may just be diabetic nephropathy
Renal on board
Trialed IVF, now capped.
outpt nephro follow up, probably needs kidney biopsy if she hasn't had one
CAD s/p PCI
HLD
cont statin
DM
BG control is fair
In setting of nausea, decreased BILLING CLERK Lantus from 11 units to 5 units HS, and decrease BILLING CLERK aspart to 3 units AC to avoid hypoglycemia
ISS coverage
Hypothyroidism
levothyroxine 75 mcg p.o. daily
History of TIA/CVA
On Eliquis and statin
Syncopal episode
12/21 following using the commode and BM, suspect vasovagal, could also have component of orthostatic hypotension
orthostatic negative 12/21 but positive 12/22 with PT
could be due to increased coreg
trial of compression therapy with SRINIVAS wrap and abdominal binder
Informed RN to cont to monitor clinically, cont bed alarm, fall precaution etc.
DVT prophylaxis: Eliquis
CODE STATUS: Full code
Anticipated Discharge: 24 - 48 hours
Subjective/Interval History
-
Date of Service: December 24, 2024
Patient was nauseous this morning was not able to eat her breakfast
Objective Data
-
Labs:
Laboratory Results
12/24/24
08:55
WBC 12.0 H
Hgb 12.8
Hct 41.2
Plt Count 103 L
Sodium 136
Potassium 4.8
Chloride 109 H
Carbon Dioxide 19 L
BUN 36 H
Creatinine 2.3 H
Glucose 110 H
Calcium 8.5
Vital Signs:
Vital Signs
Temp Pulse Resp BP Pulse Ox
97.3 F 107 19 134/89 94
12/24/24 07:30 12/24/24 09:09 12/24/24 07:30 12/24/24 09:09 12/24/24 07:30
I&O
12/23/24 12/24/24 12/25/24
06:59 06:59 06:59
Intake Total 600 / 600 840 / 840
Balance 600 / 600 840 / 840
Review of Systems
-
All other systems: Reviewed and negative
Physical Exam
-
General: No Apparent Distress
HEENT: Moist Mucous Membranes, Anicteric and PERRLA
Respiratory: Clear to Auscultation; Negative Wheezes, Rales or Rhonchi
Cardiac: S1/S2 and Irregular Rhythm; Negative Murmur, Rub or Gallop
GI: Soft, Nontender, Nondistended and Normal Bowel Sounds
Musculoskeletal: No Edema
Skin: Warm and Dry; Negative Rash, Ulcers or Lesions
Neuro: Awake and AO x 3
Hematologic / Lymphatic: No Lymphadenopathy
Psych: Calm
Data Reviewed
-
Labs: Labs Reviewed by me
[2024-12-24 11:17] LABS: Glucose - Point of Care 189 mg/dl (70-99)
--- NOTE | 2024-12-24 11:29 | PTCARENOTE ---
Abdominal binder applied around 1030 am
[2024-12-24] MEDS: NOVOLOG FLEXPEN-LOW RESISTANCE 1 UNITS SC ×2 (12:55→17:26)
--- NOTE | 2024-12-24 13:45 | W.PN.NEPH.PH ---
Today's Communication / Plan
-
BMP
Assessment/Plan
-
84-year-old female with past medical history of coronary artery disease s/p PCI, paroxysmal atrial fibrillation on Eliquis, cardiomyopathy with recovered EF at 55% as of May 2024 though she does have stage III diastolic dysfunction, IDDM,
hypertension, CKD stage 3, chronic back pain secondary to degenerative disc disease; p/w acute on chronic left lumbar pain.
She has been ruled out for cholecystitis based on imaging negative HIDA scan.. She has history of atrial fibrillation status post ablation. Heart rate is relatively controlled she did have a ventricular response of around 129 she is being seen by
cardiology. She has previously been scheduled for a cardioversion which has been rescheduled.
Her blood pressures have been stable and no episodes of hypotension.
Appetite has been poor for about a week. She is starting to eat more she had an episode of diarrhea today
Currently being treated for urinary tract infection.
Urine cultures grew Klebsiella and E. coli. Blood cultures negative.
She has a baseline creatinine of 1.5 and has risen up to 2.2
Impression
Acute on chronic kidney disease stage IIIb previously seen by [place] cardiopulmonary supervisor but has since retired
Cardiomyopathy diastolic with a preserved EF
Gram-negative UTI
Chronic atrial fibrillation rate controlled
Mild hyponatremia/no signs of volume overload
Plan
follow BMP
cap IVF
Creatinine up slightly to 2.2.3
AF w RVR=cardioverion wednesday
cr up from afib. wts up but stable
-
-
Date of Service: December 24, 2024
CC / HPI / ROS
-
Chief Complaint:
OBIE
History of Present Illness:
OBIE/Cr stable 1.9�2.3
Na stable low 133
K stable 4.9
Review of Systems:
nausea better today
no CP/SOB
Labs
-
Labs:
WBC 12.0 10^3/uL (4.8-10.8) H 12/24/24 08:55
RBC 4.28 10^6/uL (4.20-5.40) 12/24/24 08:55
Hgb 12.8 g/dL (12.0-16.0) 12/24/24 08:55
Hct 41.2 % (37.0-47.0) 12/24/24 08:55
Plt Count 103 10^3/uL (130-400) L 12/24/24 08:55
Sodium 136 mmol/L (135-145) 12/24/24 08:55
Potassium 4.8 mmol/L (3.5-5.1) 12/24/24 08:55
Chloride 109 mmol/L (98-107) H 12/24/24 08:55
Carbon Dioxide 19 mmol/L (22-30) L 12/24/24 08:55
BUN 36 mg/dl (7-17) H 12/24/24 08:55
Creatinine 2.3 mg/dL (0.6-1.0) H 12/24/24 08:55
eGFR 20.45 12/24/24 08:55
Glucose 110 mg/dl (70-99) H 12/24/24 08:55
Calcium 8.5 mg/dl (8.4-10.2) 12/24/24 08:55
Albumin 3.3 g/dl (3.5-5.0) L 12/21/24 05:24
Physical Exam
-
Vital Signs:
Vital Signs
Temp Pulse Resp BP Pulse Ox
97.3 F 103 20 144/84 95
12/24/24 12:42 12/24/24 12:42 12/24/24 12:42 12/24/24 12:42 12/24/24 12:42
Cardiovascular:: Regular rate and rhythm
Respiratory:: Bilateral: Coarse
Lung Excursion:: Normal
Abdomen:: Nontender and Soft
Bowel Sounds:: Normal
Extremity Edema:: None: Bilateral:
[2024-12-24 17:12] LABS: Glucose - Point of Care 178 mg/dl (70-99)
[2024-12-24] MEDS: COREG 12.5 MG PO (17:22)
[2024-12-24] MEDS: REMOVE LIDOCAINE PATCH 1 PATCH REMOVE (19:53)
[2024-12-24 21:16] LABS: Glucose - Point of Care 141 mg/dl (70-99)
[2024-12-24] MEDS: CRESTOR 10 MG PO (21:33)
[2024-12-24] MEDS: LANTUS 0.05 UNITS SC (21:33)
[2024-12-25 03:19] VITALS: BP 139/77
[2024-12-25] MEDS: SYNTHROID 75 MCG PO (05:39)
[2024-12-25 06:00] VITALS: BMI 26.4
[2024-12-25 07:52] LABS: Glucose - Point of Care 106 mg/dl (70-99)
[2024-12-25] MEDS: NOVOLOG FLEXPEN-LOW RESISTANCE SC ×3 (08:01→18:25)
[2024-12-25 08:07] VITALS: BP 122/80
[2024-12-25] MEDS: LIDOCAINE 4% PATCH 1 PATCH TOPICAL ×2 (08:27→12:53)
[2024-12-25] MEDS: LOW STRENGTH ASPIRIN 81 MG PO (08:28)
[2024-12-25] MEDS: ELIQUIS 2.5 MG PO ×2 (08:28→21:28)
[2024-12-25] MEDS: COREG 6.25 MG PO (08:30)
[2024-12-25] MEDS: PACERONE 200 MG PO ×2 (08:30→21:28)
[2024-12-25] MEDS: NOVOLOG FLEXPEN SC (08:34)
[2024-12-25] MEDS: IMDUR (EXTENDED RELEASE) 30 MG PO (08:34)
[2024-12-25] MEDS: TYLENOL 1000 MG PO ×2 (08:38→21:35)
[2024-12-25 09:15] LABS: Hematocrit 39.4 % (37.0-47.0); Hemoglobin 12.5 g/dL (12.0-16.0); Mean Corp Hgb Conc. 31.7 g/dL (33.0-37.0); Mean Corpuscular Volume 93.8 fL (81.0-99.0); Platelet Count 104 10^3/uL (130-400); Red Cell Dist. Width 17.0 % (11.5-14.5)
[2024-12-25 10:21] LABS: Blood Urea Nitrogen 34 mg/dl (7-17); Calcium 9.1 mg/dl (8.4-10.2); Carbon Dioxide 21 mmol/L (22-30); Chloride 109 mmol/L (98-107); Estimated Creatinine Clearance 18 ml/min; Glucose 104 mg/dl (70-99); Potassium 4.7 mmol/L (3.5-5.1); Sodium 137 mmol/L (135-145); eGFR 20.45
[2024-12-25 10:30] LABS: Glucose - Point of Care 120 mg/dl (70-99)
--- NOTE | 2024-12-25 10:48 | W.PN.CARDCBS ---
Addendum entered and electronically signed by Litzy Damon DO 12/25/24 17:25:
I saw and examined the patient.
The Clerk Of Court's note was reviewed and I agree with the note.
Comment: Patient was seen and examined prior to cardioversion. She offers no new complaints. Consent signed.
General: No acute distress, AAOX3
Heart: Irregularly irregular positive S1/S2, 2/6 SM
Lungs: CTA b/l, negative wheezes/rales/rhonchi
Abd: Positive BS, NT/ND, neg rebound/rigidity/guarding
Ext: no edema
Plan:
84-year-old female presented with left flank pain with initial concern for acute cholecystitis.
-HIDA scan negative
-General surgery consulted but determined surgery was not indicated.
Persistent atrial fibrillation with plan prior to hospitalization for outpatient cardioversion
-Eliquis was discontinued on admission while working up flank pain. She had no interruption of anticoagulation as she was transitioned to IV heparin and then back to Eliquis.
-Plan for DC cardioversion today. Consents signed.
-Successful cardioversion with 200 J x 1 with no immediate complications.
-Outpatient dose of amiodarone 200 mg BID has been continued
-There was an attempt to increase the dose of Coreg this admission, but patient had orthostasis and is now bradycardic following successful CV on 12/25/2024, will reduce Coreg dose to 3.125 mg BID and add hold parameters for HR less than 55
Outpatient cardiac follow-up to be arranged
Original Note:
Today's Communication / Plan
-
Patient had successful CV, if she remains in SR she can be discharged home tomorrow
Impression / Plan
-
Primary stationary steam engineer is Dr. Cam Read
Primary care provider is Dr. Susie Jarquin PA-C
Assessment:
L flank pain, suspected musculoskeletal vs UTI
Concern for acute cholecystitis with negative HIDA
Paroxysmal to persistent atrial fibrillation
s/p PVI for AF 03/29/24
Developed symptomatic atrial fibrillation in November 2024 and was planned for outpatient CV but ended up admitted as noted above
s/p successful CV 12/25/2024
Chronic HF improved EF
Presumably tachcyardia mediated CM EF 35% by echo 03/17/24 and improved to 55% by echo 06/04/24
Orthostatic hypotension
Coronary artery disease
Chronic kidney disease, stage IIIb
Diabetes mellitus type 2
CVA in 2013
Hypertension
Dyslipidemia
Echo 04/01/2022: EF 55%, mild cLVH, stage II diastolic dysfunction, mild MAC, mild to moderate MR, mild AI
Echo 03/17/2024: EF 35%, moderate tricuspid regurgitation and elevated pulmonary artery pressures estimated at 55-60 mmHg.
Echo 03/30/2024: Urgent bedside study in the setting of rapid response, EF 40 to 45%, no evidence of pericardial effusion
Echo 06/04/2024: LVEF improved/normalized to 55 to 60%. There is possible basal septal akinesis and basal inferior hypokinesis.
Recommendations:
-Patient initially presented due to complaints of left flank pain. There was initial concern for acute cholecystitis and patient underwent HIDA scan which was negative. She is now being treated for a UTI
-Patient had successful CV 12/25/2024 with presybeterian of SR
-This was the patient's first documented clinically significant recurrence of A-fib since PVI 03/29/2024. Patient has known paroxysmal to persistent Afib and h/o tachycardia mediated CM.
-Outpatient dose of amiodarone 200 mg BID has been continued
-There was an attempt to increase the dose of Coreg this admission, but patient had orthostasis and is now bradycardic following successful CV on 12/25/2024, will reduce Coreg dose to 3.125 mg BID and add hold parameters for HR less than 55, orders
placed by me.
-I talked with patient's daughter, Snow, by phone for 11 minutes and 43 seconds on 12/25/2024. We reviewed our conversation from 12/23/2024 and I reiterated that if patient recurs rapidly with atrial arrhythmia that the next best option
is likely ablate and pace. We reviewed what pacemaker implantation involves and we talked about the risks and the benefits. We talked about sedation and we talked about the ability to still have MRI following pacemaker implantation. We also
reviewed that once pacemaker is healed the patient could then have AV node ablation and while that will help with symptomatic A-fib the patient would still need to remain on OAC for stroke risk reduction. We also reviewed that if the patient does
not have a documented clinically significant recurrence of A-fib until months from now then it may be appropriate to attempt another CV at that time, but any rapid recurrence of atrial arrhythmia is likely best managed with ablate and pace.
-Hospitalist attending updated
-Suspect patient will be ready for discharge 12/26/2024
Progress Note - Surgery Scheduling Coordinator
Subjective
Date of Service: December 25, 2024
She is unsure if she feels better yet
Objective
Labs:
12/25/24 08:20
12/25/24 08:20
Labs
Hgb 12.5 g/dL (12.0-16.0) 12/25/24 08:20
Hct 39.4 % (37.0-47.0) 12/25/24 08:20
Plt Count 104 10^3/uL (130-400) L 12/25/24 08:20
APTT 122.6 Sec (23.4-35.0) H 12/18/24 19:27
Sodium 137 mmol/L (135-145) 12/25/24 08:20
Potassium 4.7 mmol/L (3.5-5.1) 12/25/24 08:20
BUN 34 mg/dl (7-17) H 12/25/24 08:20
Creatinine 2.3 mg/dL (0.6-1.0) H 12/25/24 08:20
Glucose 104 mg/dl (70-99) H 12/25/24 08:20
Vital Signs and I&O:
Vital Signs
Temp Pulse Resp BP Pulse Ox
97.4 F 107 20 122/80 94
12/25/24 08:07 12/25/24 08:30 12/25/24 08:07 12/25/24 08:30 12/25/24 08:07
Vital Signs
Temp Pulse Resp BP Pulse Ox
97.4 F 107 20 122/80 94
12/25/24 08:07 12/25/24 08:30 12/25/24 08:07 12/25/24 08:30 12/25/24 08:07
Intake & Output
12/23/24 12/24/24 12/25/24 12/26/24
06:59 06:59 06:59 06:59
Intake Total 600 / 600 840 / 840
Balance 600 / 600 840 / 840
Physical Exam
Physical Exam
GEN: NAD
HEENT: EOMI
LUNGS: RA
CV: SR on tele
--- NOTE | 2024-12-25 11:23 | W.PN.HOSP.TC ---
Today's Communication/Plan
-
see A/P
Assessment / Plan
Assessment / Plan
84F with CAD s/p PCI, PAF on Eliquis, CHF, DM, HTN, CKD 3, chronic back pain, DDD; p/w acute on chronic left lumbar pain.
A/P:
# Persistent atrial fibrillation with RVR�symptomatic
# s/p ablation
Cont Eliquis
rate control with Coreg and amiodarone.
Coreg dose increased from 6.25 BID to 12.5 mg BID by cards however patient had a syncopal event, so this was reduced to use 6.25 in the morning and 12.5 in the evening
outpt cardioversion was scheduled on 12/19, has now been rescheduled to be done inpatient on Monday 12/25 given her symptoms
Cardiology managing
# Left flank pain, Improved, suspect due to MSK vs UTI
CT A/P shows LLL mild patchy parenchymal opacity, likely atelectasis, also GB wall thickening, moderate diffuse subcutaneous edema, slightly greater in left flank compared to right. There do not appear to be any issues with the kidneys, spleen, or
bowel, limited by noncontrast study.
Due to the possibility of acute cholecystitis, surgery was consulted, abdominal ultrasound and HIDA scan were performed, which did not show acute cholecystitis. There are findings consistent with possible chronic cholecystitis and hepatic
dysfunction.
No surgical plan. Stopped heparin drip. Resumed Eliquis.
Diet advanced to regular, tolerated well.
Discontinued IV morphine, also stopped oxycodone as pt feels opiate caused nausea.
Cont Tylenol and added lidocaine patch for pain control- pain improved significantly with local patch per pt. Patient reports she deals with the same left flank pain at home as well and uses Salonpas for it
# Nausea, resolved
pt feels that nausea was due to opiate/oxycodone, opiate stopped, amiodarone could be contributing
IV Zofran PRN
# Sepsis secondary to UTI, with OBIE�resolved
Urine culture on admit growing Klebsiella and E. coli, sensitive to ceftriaxone. Repeat urine cultures no growth. BCx NGTD
Received ceftriaxone for 5 days (completed treatment), stopped further Abx
Discontinued Flagyl as HIDA negative for acute cholecystitis
# OBIE on CKD stage 3
Proteinuria, 3+ albumin. 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 Diehl but he retired)
CT showed subcutaneous edema
SCr 2.2 on admission, from baseline 1.5. Monitor Cr, today at 2.3
treated UTI as above.
Patient had workup with urine 24h protein and k/l chains in 2022. Per neph this may just be diabetic nephropathy
Renal on board
Trialed IVF, now capped.
outpt nephro follow up, probably needs kidney biopsy if she hasn't had one
# CAD s/p PCI
HLD
cont statin
# DM
BG control is fair
In setting of nausea, decreased TOOL ANALYST Lantus from 11 units to 5 units HS, and decrease TOOL ANALYST aspart to 3 units AC to avoid hypoglycemia
ISS coverage
# Hypothyroidism
levothyroxine 75 mcg p.o. daily
# History of TIA/CVA
On Eliquis and statin
# Syncopal episode
12/21 following using the commode and BM, suspect vasovagal, could also have component of orthostatic hypotension
orthostatic negative 12/21 but positive 12/22 with PT
could be due to increased coreg
trial of compression therapy with SRINIVAS wrap and abdominal binder
Informed RN to cont to monitor clinically, cont bed alarm, fall precaution etc.
DVT prophylaxis: Eliquis
CODE STATUS: Full code
Dispo: HH per daughter request
DW Card team
Anticipated Discharge: Within 24 hours
Subjective/Interval History
-
Date of Service: December 25, 2024
Objective Data
-
Labs:
Laboratory Results
12/25/24
08:20
WBC 12.2 H
Hgb 12.5
Hct 39.4
Plt Count 104 L
Sodium 137
Potassium 4.7
Chloride 109 H
Carbon Dioxide 21 L
BUN 34 H
Creatinine 2.3 H
Glucose 104 H
Calcium 9.1
Vital Signs:
Vital Signs
Temp Pulse Resp BP Pulse Ox
36.3 C 107 20 122/80 94
12/25/24 08:07 12/25/24 08:30 12/25/24 08:07 12/25/24 08:30 12/25/24 08:07
I&O
12/24/24 12/25/24 12/26/24
06:59 06:59 06:59
Intake Total 840 / 840
Balance 840 / 840
Review of Systems
-
All other systems: Reviewed and negative
Physical Exam
-
General: Well Developed, Well Nourished, No Apparent Distress, Comfortable and Conversant
HEENT: Normocephalic, Atraumatic and Anicteric
Respiratory: Clear to Auscultation and Non Labored Respirations; Negative Accessory Resp Muscle Use
Cardiac: Regular Rhythm and S1/S2; Negative Murmur, Rub or Gallop
GI: Soft, Nontender, Nondistended and Normal Bowel Sounds
Musculoskeletal: No Edema
Skin: Warm and Dry
Neuro: Awake and Alert
Psych: Calm and Intact Judgement/Insight
Data Reviewed
-
Labs: Labs Reviewed by me
[2024-12-25 11:43] VITALS: BP 113/52
[2024-12-25 11:46] LABS: Glucose - Point of Care 112 mg/dl (70-99)
--- NOTE | 2024-12-25 12:22 | VNURNOTE ---
Home Health Liaison met with patient at bedside to discuss [facility] nurse/therapy, visits, schedule and homebound status. Patient is agreeable and understands that visits at home will be 2-3 x per week to assess and teach medical management.
Patient is aware that [facility] will contact them for start of care within a week after discharge from . Provided contact number for [facility].
[facility] referral accepted in [facility].
--- NOTE | 2024-12-25 13:29 | ITS.CL.CARDI ---
Loan Processor - Cardioversion
Cardioversion
Procedure Report:
Date of Procedure: 12/25/24
Procedure: Cardioversion
Indication: Symptomatic atrial fibrillation
Performing Physician: Litzy Damon DO [facility]
Technique: The patient was brought to the holding area. Signed informed consent was obtained. A time out was called and performed. The patient was anesthetized by the anesthesia service. Anticoagulation status was reviewed and appropriate. R2 pads
were placed anteriorly and posteriorly. A 200 J synchronized biphasic shock restored normal sinus rhythm without significant bradycardia. There were no complications.
Conclusion: Uncomplicated cardioversion from atrial fibrillation to sinus rhythm.
Recommendation: Routine post cardioversion care. Continue [facility] anticoagulation.
[2024-12-25] MEDS: NOVOLOG FLEXPEN 3 UNITS SC ×2 (13:37→18:25)
--- NOTE | 2024-12-25 14:37 | PTCARENOTE ---
Pt returned to room post cardioversion. Sinus bailey [address] 46 on the monitor. MD made aware. pt complaining of L neck pain- MD notified and lidocaine patch ordered. Diet order upgraded. Plan for pt to be d/c tomorrow if rhythm remains NSR per cardiology
note. Call vasquez is within reach. Pt has no needs at this time.
--- NOTE | 2024-12-25 14:41 | W.PN.NEPH.PH ---
Today's Communication / Plan
-
follow labs
Assessment/Plan
-
84-year-old female with past medical history of coronary artery disease s/p PCI, paroxysmal atrial fibrillation on Eliquis, cardiomyopathy with recovered EF at 55% as of May 2024 though she does have stage III diastolic dysfunction, IDDM,
hypertension, CKD stage 3, chronic back pain secondary to degenerative disc disease; p/w acute on chronic left lumbar pain.
She has been ruled out for cholecystitis based on imaging negative HIDA scan.. She has history of atrial fibrillation status post ablation. Heart rate is relatively controlled she did have a ventricular response of around 129 she is being seen by
cardiology. She has previously been scheduled for a cardioversion which has been rescheduled.
Her blood pressures have been stable and no episodes of hypotension.
Appetite has been poor for about a week. She is starting to eat more she had an episode of diarrhea today
Currently being treated for urinary tract infection.
Urine cultures grew Klebsiella and E. coli. Blood cultures negative.
She has a baseline creatinine of 1.5 and has risen up to 2.2
Impression
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
Cardiomyopathy diastolic with a preserved EF
Gram-negative UTI
Chronic atrial fibrillation rate controlled
Mild hyponatremia/no signs of volume overload
Plan
stable renal function cr 2.3
s/p CV today hoping to see improvement in renal function
stable BPs, on BB- dose lowered for low HR
follow BMP
-
-
Date of Service: December 25, 2024
CC / HPI / ROS
-
Chief Complaint:
OBIE
History of Present Illness:
OBIE/Cr stable 2.3
Na better at 137
K stable 4.7
HR low 48
Review of Systems:
no CP/SOB at rest
Labs
-
Labs:
WBC 12.2 10^3/uL (4.8-10.8) H 12/25/24 08:20
RBC 4.20 10^6/uL (4.20-5.40) 12/25/24 08:20
Hgb 12.5 g/dL (12.0-16.0) 12/25/24 08:20
Hct 39.4 % (37.0-47.0) 12/25/24 08:20
Plt Count 104 10^3/uL (130-400) L 12/25/24 08:20
Sodium 137 mmol/L (135-145) 12/25/24 08:20
Potassium 4.7 mmol/L (3.5-5.1) 12/25/24 08:20
Chloride 109 mmol/L (98-107) H 12/25/24 08:20
Carbon Dioxide 21 mmol/L (22-30) L 12/25/24 08:20
BUN 34 mg/dl (7-17) H 12/25/24 08:20
Creatinine 2.3 mg/dL (0.6-1.0) H 12/25/24 08:20
eGFR 20.45 12/25/24 08:20
Glucose 104 mg/dl (70-99) H 12/25/24 08:20
Calcium 9.1 mg/dl (8.4-10.2) 12/25/24 08:20
Albumin 3.3 g/dl (3.5-5.0) L 12/21/24 05:24
Physical Exam
-
Vital Signs:
Vital Signs
Temp Pulse Resp BP Pulse Ox
97.5 F 48 16 113/52 99
12/25/24 11:43 12/25/24 11:43 12/25/24 11:43 12/25/24 11:43 12/25/24 11:43
Cardiovascular:: Regular rate and rhythm
Respiratory:: Bilateral: CTA
Lung Excursion:: Normal
Abdomen:: Nontender and Soft
Extremity Edema:: None: Bilateral:
Garcia Catheter: No
[2024-12-25 15:14] VITALS: BP 134/60
[2024-12-25 16:30] LABS: Glucose - Point of Care 131 mg/dl (70-99)
[2024-12-25 19:33] VITALS: BP 131/60
[2024-12-25] MEDS: COREG 3.125 MG PO (21:27)
[2024-12-25] MEDS: REMOVE LIDOCAINE PATCH 1 PATCH REMOVE ×2 (21:29)
[2024-12-25 22:07] LABS: Glucose - Point of Care 113 mg/dl (70-99)
[2024-12-25 22:08] VITALS: BP 137/61
[2024-12-25] MEDS: LANTUS 0.05 UNITS SC (22:11)
[2024-12-25] MEDS: CRESTOR 10 MG PO (22:11)
[2024-12-25 22:14] VITALS: BMI 26.4
[2024-12-26] VITALS (8 sets, daily range): BP systolic 97–158; BP diastolic 46–63; PULSE 49–52; O2SAT 97; BMI 25.7
[2024-12-26] MEDS: SYNTHROID 75 MCG PO (06:01)
[2024-12-26 07:17] LABS: Hematocrit 37.6 % (37.0-47.0); Hemoglobin 12.2 g/dL (12.0-16.0); Mean Corp Hgb Conc. 32.4 g/dL (33.0-37.0); Mean Corpuscular Volume 94.0 fL (81.0-99.0); Platelet Count 87 10^3/uL (130-400); Red Cell Dist. Width 16.9 % (11.5-14.5)
[2024-12-26 07:36] LABS: Blood Urea Nitrogen 36 mg/dl (7-17); Calcium 8.9 mg/dl (8.4-10.2); Carbon Dioxide 21 mmol/L (22-30); Chloride 109 mmol/L (98-107); Estimated Creatinine Clearance 19 ml/min; Glucose 67 mg/dl (70-99); Potassium 4.7 mmol/L (3.5-5.1); Sodium 134 mmol/L (135-145); eGFR 21.57
[2024-12-26 07:44] LABS: Glucose - Point of Care 79 mg/dl (70-99)
[2024-12-26] MEDS: IMDUR (EXTENDED RELEASE) 30 MG PO (08:01)
[2024-12-26] MEDS: NOVOLOG FLEXPEN-LOW RESISTANCE SC ×2 (08:01→17:22)
[2024-12-26] MEDS: COREG PO (08:02)
[2024-12-26] MEDS: ELIQUIS 2.5 MG PO ×2 (08:02→20:12)
[2024-12-26] MEDS: LOW STRENGTH ASPIRIN 81 MG PO (08:02)
[2024-12-26] MEDS: LIDOCAINE 4% PATCH TOPICAL ×4 (08:05→08:32)
--- NOTE | 2024-12-26 08:19 | PTCARENOTE ---
Pt HR 44-46 this morning. Amiodarone ordered for morning medications. Hospitalist messaged if Amiodarone should be given due to low heart rate. Hospitalist then referred this RN to messaged the cardiology PA, who instructed this RN to give the
Amiodarone and that parameters will be added to order. Pt on monitor tech and will be monitored.
[2024-12-26] MEDS: PACERONE 200 MG PO ×2 (08:23→20:12)
[2024-12-26] MEDS: NOVOLOG FLEXPEN SC (08:29)
--- NOTE | 2024-12-26 10:20 | W.PN.HOSP.TC ---
Today's Communication/Plan
-
see A/P
Monitor HR
Assessment / Plan
Assessment / Plan
84F with CAD s/p PCI, PAF on Eliquis, CHF, DM, HTN, CKD 3, chronic back pain, DDD; p/w acute on chronic left lumbar pain.
A/P:
# Persistent atrial fibrillation with RVR�symptomatic
# s/p ablation
Cont Eliquis
s/p inpatient DCCV 12/25 given her symptoms
Now with sinus bradycardia (HR in the 40's)
Stopped Coreg
Card prefers to cont amiodarone
Cardiology following closely
# Left flank pain, Improved, suspect due to MSK vs UTI
CT A/P shows LLL mild patchy parenchymal opacity, likely atelectasis, also GB wall thickening, moderate diffuse subcutaneous edema, slightly greater in left flank compared to right. There do not appear to be any issues with the kidneys, spleen, or
bowel, limited by noncontrast study.
Due to the possibility of acute cholecystitis, surgery was consulted, abdominal ultrasound and HIDA scan were performed, which did not show acute cholecystitis. There are findings consistent with possible chronic cholecystitis and hepatic
dysfunction.
No surgical plan. Stopped heparin drip. Resumed Eliquis.
Diet advanced to regular, tolerated well.
Discontinued IV morphine, also stopped oxycodone as pt feels opiate caused nausea.
Cont Tylenol and added lidocaine patch for pain control- pain improved significantly with local patch per pt. Patient reports she deals with the same left flank pain at home as well and uses Salonpas for it
# Nausea, resolved
pt feels that nausea was due to opiate/oxycodone, opiate stopped, amiodarone could be contributing
IV Zofran PRN
# Sepsis secondary to UTI, with OBIE�resolved
Urine culture on admit growing Klebsiella and E. coli, sensitive to ceftriaxone. Repeat urine cultures no growth. BCx NGTD
Received ceftriaxone for 5 days (completed treatment), stopped further Abx
Discontinued Flagyl as HIDA negative for acute cholecystitis
# OBIE on CKD stage 3
Proteinuria, 3+ albumin. 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 Diehl but he retired)
CT showed subcutaneous edema
SCr 2.2 on admission, from baseline 1.5. Monitor Cr, today at 2.3
treated UTI as above.
Patient had workup with urine 24h protein and k/l chains in 2022. Per neph this may just be diabetic nephropathy
Renal on board
Trialed IVF, now capped.
outpt nephro follow up, probably needs kidney biopsy if she hasn't had one
# CAD s/p PCI
HLD
cont statin
# DM
BG control is fair
In setting of nausea, decreased NURSE PRACTITIONER MANAGER Lantus from 11 units to 5 units HS, and decrease NURSE PRACTITIONER MANAGER aspart to 3 units AC to avoid hypoglycemia
ISS coverage
# Hypothyroidism
levothyroxine 75 mcg p.o. daily
# History of TIA/CVA
On Eliquis and statin
# Syncopal episode
12/21 following using the commode and BM, suspect vasovagal, could also have component of orthostatic hypotension
orthostatic negative 12/21 but positive 12/22 with PT
could be due to coreg- now stopped
Cont trial of compression therapy with SRINIVAS wrap and abdominal binder
Informed RN to cont to monitor clinically, cont bed alarm, fall precaution etc.
DVT prophylaxis: Eliquis
CODE STATUS: Full code
Dispo: HH per daughter request. Family declined SNF
DW Card team
Anticipated Discharge: 24 - 48 hours
Subjective/Interval History
-
Date of Service: December 26, 2024
Objective Data
-
Labs:
Laboratory Results
12/26/24
06:42
WBC 10.2
Hgb 12.2
Hct 37.6
Plt Count 87 L
Sodium 134 L
Potassium 4.7
Chloride 109 H
Carbon Dioxide 21 L
BUN 36 H
Creatinine 2.2 H
Glucose 67 L
Calcium 8.9
Vital Signs:
Vital Signs
Temp Pulse Resp BP Pulse Ox
36.4 C 44 16 141/58 97
12/26/24 07:21 12/26/24 08:23 12/26/24 07:21 12/26/24 08:23 12/26/24 07:21
I&O
12/25/24 12/26/24 12/27/24
06:59 06:59 06:59
Intake Total 720 / 720
Balance 720 / 720
Review of Systems
-
History Source: Patient
All other systems: Reviewed and negative
Physical Exam
-
General: Well Developed, Well Nourished, No Apparent Distress, Comfortable and Conversant
HEENT: Normocephalic and Atraumatic
Respiratory: Clear to Auscultation and Non Labored Respirations; Negative Accessory Resp Muscle Use
Cardiac: Regular Rhythm and S1/S2; Negative Murmur, Rub or Gallop
GI: Soft, Nontender, Nondistended and Normal Bowel Sounds
Musculoskeletal: No Edema
Skin: Warm and Dry
Neuro: Awake and Alert
Psych: Calm and Intact Judgement/Insight
Data Reviewed
-
Labs: Labs Reviewed by me
--- NOTE | 2024-12-26 11:48 | W.PN.CARDCBS ---
Addendum entered and electronically signed by Cam Read MD 12/26/24 12:59:
I saw and examined the patient.
The [employer] or PA's note was reviewed and I agree with the note.
Comment: General: Well developed, well nourished in NAD.
Neck: Supple, no JVD, HJR, carotids +2 B/L, no bruits bilaterally.
Heart: Non displaced PMI, RRR, no murmurs, No S3, S4, no rubs.
Lungs: Scattered rhonchi
Extremities: No clubbing, cyanosis or edema bilaterally.
Neuro: Grossly nonfocal, awake, alert and oriented x3.
She wants to go home. However given orthostasis and bradycardia we will hold off for now. Will stop Imdur. Will hold Coreg with bradycardia continue amiodarone. Primary service updated. Family will be updated as well.
Original Note:
Today's Communication / Plan
-
Coreg stopped
Stop Imdur ER, orders placed by me
Follow orthostatic VS and try to increase work with PT tomorrow
Patient's daughter and hospitalist attending updated
Impression / Plan
-
Primary archivist military history is Dr. Cam Read
Primary care provider is Dr. Susie Jarquin PA-C
Assessment:
L flank pain, suspected musculoskeletal vs UTI
Concern for acute cholecystitis with negative HIDA
Paroxysmal to persistent atrial fibrillation
s/p PVI for AF 03/29/24
Developed symptomatic atrial fibrillation in November 2024 and was planned for outpatient CV but ended up admitted as noted above
s/p successful CV 12/25/2024
Chronic HF improved EF
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
Orthostatic hypotension
CAD
s/p 3.0 mm Xience STEFAN to the proximal to mid LAD and PTCA alone of diagonal�1 and OM�1 02/18/2008
Subacute MORTGAGE PROTECTION SALES in the midportion of the RCA with collateral flow and patent previously placed proximal to mid LAD stent cardiac cath 12/19/2021
Chronic kidney disease, stage IIIb
Diabetes mellitus type 2
CVA in 2013
Hypertension
Dyslipidemia
Echo 04/01/2022: EF 55%, mild cLVH, stage II diastolic dysfunction, mild MAC, mild to moderate MR, mild AI
Echo 03/17/2024: EF 35%, moderate tricuspid regurgitation and elevated pulmonary artery pressures estimated at 55-60 mmHg.
Echo 03/30/2024: Urgent bedside study in the setting of rapid response, EF 40 to 45%, no evidence of pericardial effusion
Echo 06/04/2024: LVEF improved/normalized to 55 to 60%. There is possible basal septal akinesis and basal inferior hypokinesis.
Recommendations:
-Patient initially presented due to complaints of left flank pain. There was initial concern for acute cholecystitis and patient underwent HIDA scan which was negative. She is now being treated for a UTI
-Patient had successful CV 12/25/2024 with scientology of SR. Telemetry reviewed by me 12/26/2024 and patient remains in sinus bradycardia, no significant pauses
-This was the patient's first documented clinically significant recurrence of A-fib since PVI 03/29/2024. Patient has known paroxysmal to persistent Afib and h/o tachycardia mediated CM.
-Outpatient dose of amiodarone 200 mg BID has been continued
-Outpatient dose of Coreg was increased this admission resulting on orthostasis. Coreg then stopped following successful CV on 12/25/2024 due to bradycardia.
-Despite d/c'ing Coreg patient has continued with symptomatic orthostasis. Orthostatic vital signs performed by PT while I was in the room on 12/26/2024 include supine BP of 158/63 and then a sitting BP of 121/56 and patient felt dizzy. Standing
BP improved to 131/46 and patient was less symptomatic.
-Patient received her usual dose of Imdur ER 30 mg daily this morning. Patient had LAD PCI in 2008 with patent stent on repeat cath in 2021 and there is also a new MORTGAGE PROTECTION SALES of the RCA with robust collateral flow. It seems Imdur ER was started following
cardiac cath in 2021, given current orthostasis we will stop Imdur ER and follow orthostatic BP and look for any recurrence of chest pain.
-I talked with patient's daughter, Snow, by phone for 13 minutes and 8 seconds on 12/26/2024. We reviewed orthostatic VS from 12/26/2024 and plans to d/c Imdur ER. We also reviewed that Coreg was stopped. Amiodarone being continued and we are
following sinus bradycardia on telemetry. We again discussed that if there is a rapid recurrence of atrial arrhythmia that the next best option is likely ablate and pace. Patient and family are declining rehab and wished to return home, patient
had limited PT on 12/26/2024 due to orthostasis and recommend ongoing admission and we will follow-up on orthostatic VS 12/27/2024.
-Hospitalist attending updated by me 12/26/2024
Progress Note - Property And Equipment Clerk
Subjective
Date of Service: December 26, 2024
She felt dizzy moving from supine to sitting position in bed, less dizzy with changing from sitting to standing
Objective
Labs:
12/26/24 06:42
12/26/24 06:42
Labs
Hgb 12.2 g/dL (12.0-16.0) 12/26/24 06:42
Hct 37.6 % (37.0-47.0) 12/26/24 06:42
Plt Count 87 10^3/uL (130-400) L 12/26/24 06:42
APTT 122.6 Sec (23.4-35.0) H 12/18/24 19:27
Sodium 134 mmol/L (135-145) L 12/26/24 06:42
Potassium 4.7 mmol/L (3.5-5.1) 12/26/24 06:42
BUN 36 mg/dl (7-17) H 12/26/24 06:42
Creatinine 2.2 mg/dL (0.6-1.0) H 12/26/24 06:42
Glucose 67 mg/dl (70-99) L 12/26/24 06:42
Vital Signs and I&O:
Vital Signs
Temp Pulse Resp BP Pulse Ox
97.9 F 48 16 149/60 97
12/26/24 10:58 12/26/24 10:58 12/26/24 10:58 12/26/24 10:58 12/26/24 10:58
Vital Signs
Temp Pulse Resp BP Pulse Ox
97.9 F 48 16 149/60 97
12/26/24 10:58 12/26/24 10:58 12/26/24 10:58 12/26/24 10:58 12/26/24 10:58
Intake & Output
12/24/24 12/25/24 12/26/24 12/27/24
06:59 06:59 06:59 06:59
Intake Total 840 / 840 720 / 720
Balance 840 / 840 720 / 720
Physical Exam
Physical Exam
GEN: NAD
HEENT: EOMI
LUNGS: RA
CV: SR on tele
[2024-12-26 11:58] LABS: Glucose - Point of Care 153 mg/dl (70-99)
[2024-12-26] MEDS: NOVOLOG FLEXPEN 3 UNITS SC ×2 (12:51→17:23)
[2024-12-26] MEDS: NOVOLOG FLEXPEN-LOW RESISTANCE 1 UNITS SC (12:51)
[2024-12-26 17:22] LABS: Glucose - Point of Care 141 mg/dl (70-99)
--- NOTE | 2024-12-26 17:43 | W.PN.NEPH.PH ---
Today's Communication / Plan
-
follow BPs and labs
Assessment/Plan
-
84-year-old female with past medical history of coronary artery disease s/p PCI, paroxysmal atrial fibrillation on Eliquis, cardiomyopathy with recovered EF at 55% as of May 2024 though she does have stage III diastolic dysfunction, IDDM,
hypertension, CKD stage 3, chronic back pain secondary to degenerative disc disease; p/w acute on chronic left lumbar pain.
She has been ruled out for cholecystitis based on imaging negative HIDA scan.. She has history of atrial fibrillation status post ablation. Heart rate is relatively controlled she did have a ventricular response of around 129 she is being seen by
cardiology. She has previously been scheduled for a cardioversion which has been rescheduled.
Her blood pressures have been stable and no episodes of hypotension.
Appetite has been poor for about a week. She is starting to eat more she had an episode of diarrhea today
Currently being treated for urinary tract infection.
Urine cultures grew Klebsiella and E. coli. Blood cultures negative.
She has a baseline creatinine of 1.5 and has risen up to 2.2
Impression
Acute on chronic kidney disease stage IIIb previously seen by [place] maintainer operator but has since retired
Cardiomyopathy diastolic with a preserved EF
Gram-negative UTI
Chronic atrial fibrillation rate controlled
Mild hyponatremia/no signs of volume overload
Plan
stable renal function cr 2.2
s/p CV 12/25 , orthostatic bps today , TEDpaola and deloris colon added
meds adjusted per cards, also bailey elisha held
follow BMP
upon d/c follow Nephro with us
-
-
Date of Service: December 26, 2024
CC / HPI / ROS
-
Chief Complaint:
OBIE
History of Present Illness:
OBIE/Cr stable 2.2
Na low at 134
K stable 4.7
HR low
bicarb 21
orthostatic BP today btu no symp per pt
Review of Systems:
no CP/SOB at rest
no dizziness
Labs
-
Labs:
WBC 10.2 10^3/uL (4.8-10.8) 12/26/24 06:42
RBC 4.00 10^6/uL (4.20-5.40) L 12/26/24 06:42
Hgb 12.2 g/dL (12.0-16.0) 12/26/24 06:42
Hct 37.6 % (37.0-47.0) 12/26/24 06:42
Plt Count 87 10^3/uL (130-400) L 12/26/24 06:42
Sodium 134 mmol/L (135-145) L 12/26/24 06:42
Potassium 4.7 mmol/L (3.5-5.1) 12/26/24 06:42
Chloride 109 mmol/L (98-107) H 12/26/24 06:42
Carbon Dioxide 21 mmol/L (22-30) L 12/26/24 06:42
BUN 36 mg/dl (7-17) H 12/26/24 06:42
Creatinine 2.2 mg/dL (0.6-1.0) H 12/26/24 06:42
eGFR 21.57 12/26/24 06:42
Glucose 67 mg/dl (70-99) L 12/26/24 06:42
Calcium 8.9 mg/dl (8.4-10.2) 12/26/24 06:42
Albumin 3.3 g/dl (3.5-5.0) L 12/21/24 05:24
Physical Exam
-
Vital Signs:
Vital Signs
Temp Pulse Resp BP Pulse Ox
97.6 F 48 17 104/47 97
12/26/24 15:15 12/26/24 15:15 12/26/24 15:15 12/26/24 15:15 12/26/24 15:15
Cardiovascular:: Regular rate and rhythm
Respiratory:: Bilateral: CTA
Lung Excursion:: Normal
Abdomen:: Nontender and Soft
Extremity Edema:: None: Bilateral:
Garcia Catheter: No
[2024-12-26] MEDS: TYLENOL 1000 MG PO (20:12)
[2024-12-26] MEDS: REMOVE LIDOCAINE PATCH 1 PATCH REMOVE ×2 (20:22)
[2024-12-26 21:31] LABS: Glucose - Point of Care 134 mg/dl (70-99)
[2024-12-26] MEDS: CRESTOR 10 MG PO (21:51)
[2024-12-26] MEDS: LANTUS 0.05 UNITS SC (21:52)
[2024-12-27 03:40] VITALS: BP 128/53
[2024-12-27] MEDS: TYLENOL 1000 MG PO ×3 (04:35→20:02)
[2024-12-27 06:00] VITALS: BMI 25.4
[2024-12-27] MEDS: SYNTHROID 75 MCG PO (06:17)
[2024-12-27 07:08] LABS: Blood Urea Nitrogen 36 mg/dl (7-17); Calcium 9.1 mg/dl (8.4-10.2); Carbon Dioxide 24 mmol/L (22-30); Chloride 108 mmol/L (98-107); Estimated Creatinine Clearance 19 ml/min; Glucose 117 mg/dl (70-99); Potassium 5.0 mmol/L (3.5-5.1); Sodium 134 mmol/L (135-145); eGFR 21.57
[2024-12-27 07:21] LABS: Hematocrit 38.9 % (37.0-47.0); Hemoglobin 12.2 g/dL (12.0-16.0); Mean Corp Hgb Conc. 31.4 g/dL (33.0-37.0); Mean Corpuscular Volume 98.0 fL (81.0-99.0); Platelet Count 83 10^3/uL (130-400); Red Cell Dist. Width 16.7 % (11.5-14.5)
[2024-12-27 07:42] VITALS: BP 143/53
[2024-12-27 08:11] LABS: Glucose - Point of Care 124 mg/dl (70-99)
[2024-12-27] MEDS: ELIQUIS 2.5 MG PO ×2 (08:30→20:02)
[2024-12-27] MEDS: LOW STRENGTH ASPIRIN 81 MG PO (08:31)
[2024-12-27] MEDS: LIDOCAINE 4% PATCH 1 PATCH TOPICAL ×2 (08:31)
[2024-12-27] MEDS: PACERONE 200 MG PO (08:32)
[2024-12-27] MEDS: NOVOLOG FLEXPEN-LOW RESISTANCE SC ×2 (08:32→17:04)
[2024-12-27] MEDS: NOVOLOG FLEXPEN 3 UNITS SC ×3 (08:33→17:04)
--- NOTE | 2024-12-27 10:07 | W.PN.HOSP.TC ---
Addendum entered and electronically signed by Stacia Mercado MD 12/27/24 16:22:
Updated daughter Snow on the phone
Addendum entered and electronically signed by Stacia Mercado MD 12/27/24 10:21:
Physical Exam
General: Well Developed, Well Nourished, No Apparent Distress, Comfortable and Conversant
HEENT: Normocephalic and Atraumatic
Respiratory: Clear to Auscultation and Non Labored Respirations; Negative Accessory Resp Muscle Use
Cardiac: Regular Rhythm and S1/S2; Negative Murmur, Rub or Gallop
GI: Soft, Nontender, Nondistended and Normal Bowel Sounds
Musculoskeletal: No Edema
Skin: Warm and Dry
Neuro: Awake and Alert
Psych: Calm and Intact Judgement/Insight
Original Note:
Today's Communication/Plan
-
see A/P
Assessment / Plan
Assessment / Plan
84F with CAD s/p PCI, PAF on Eliquis, CHF, DM, HTN, CKD 3, chronic back pain, DDD; p/w acute on chronic left lumbar pain.
A/P:
# Persistent atrial fibrillation with RVR�symptomatic
# s/p ablation
Cont Eliquis
s/p inpatient DCCV 12/25 given her symptoms
Now with sinus bradycardia (HR in the 40's)
Stopped Coreg
Holding amiodarone (d/w clay structure builder and servicer Dr Alarcon and he recc to hold amiodarone)
Monitor HR closely
# Left flank pain, Improved, suspect due to MSK vs UTI
CT A/P shows LLL mild patchy parenchymal opacity, likely atelectasis, also GB wall thickening, moderate diffuse subcutaneous edema, slightly greater in left flank compared to right. There do not appear to be any issues with the kidneys, spleen, or
bowel, limited by noncontrast study.
Due to the possibility of acute cholecystitis, surgery was consulted, abdominal ultrasound and HIDA scan were performed, which did not show acute cholecystitis. There are findings consistent with possible chronic cholecystitis and hepatic
dysfunction.
No surgical plan. Stopped heparin drip. Resumed Eliquis.
Diet advanced to regular, tolerated well.
Discontinued IV morphine, also stopped oxycodone as pt feels opiate caused nausea.
Cont Tylenol and added lidocaine patch for pain control- pain improved significantly with local patch per pt. Patient reports she deals with the same left flank pain at home as well and uses [facility] for it
# Nausea, resolved
pt feels that nausea was due to opiate/oxycodone, opiate stopped, amiodarone could be contributing
IV Zofran PRN
# Sepsis secondary to UTI, with OBIE�resolved
Urine culture on admit growing Klebsiella and E. coli, sensitive to ceftriaxone. Repeat urine cultures no growth. BCx NGTD
Received ceftriaxone for 5 days (completed treatment), stopped further Abx
Discontinued Flagyl as HIDA negative for acute cholecystitis
# OBIE on CKD stage 3
Proteinuria, 3+ albumin. Attempted to review old records to find cause but none available and pt doesn't know her rail walker (previously Dr. Diehl but he retired)
CT showed subcutaneous edema
SCr 2.2 on admission, from baseline 1.5. Monitor Cr, today at 2.2- this may be the new level
treated UTI as above.
Trialed IVF, now capped.
Renal on board
# CAD s/p PCI
HLD
cont statin
# DM
BG control is fair
In setting of nausea, decreased ANALYSIS INTERN Lantus from 11 units to 5 units HS, and decrease ANALYSIS INTERN aspart to 3 units AC to avoid hypoglycemia
ISS coverage
# Hypothyroidism
levothyroxine 75 mcg p.o. daily
# History of TIA/CVA
On Eliquis and statin
# Syncopal episode
12/21 following using the commode and BM, suspect vasovagal, could also have component of orthostatic hypotension
orthostatic negative 12/21 but positive 12/22 with PT
Coreg, Imdur stopped
Holding amiodarone for bradycardia
Cont trial of compression therapy with SRINIVAS wrap and abdominal binder
Informed RN to cont to monitor clinically, cont bed alarm, fall precaution etc.
DVT prophylaxis: Eliquis
CODE STATUS: Full code
Dispo: PT recc SNF, however family declined SNF and elected for HH
DW Cardiology Dr. Alarcon
will attempt to update daughter later today
total time 51 min
Anticipated Discharge: 24 - 48 hours
Subjective/Interval History
-
Date of Service: December 27, 2024
Objective Data
-
Labs:
Laboratory Results
12/27/24
06:19
WBC 9.9
Hgb 12.2
Hct 38.9
Plt Count 83 L
Sodium 134 L
Potassium 5.0
Chloride 108 H
Carbon Dioxide 24
BUN 36 H
Creatinine 2.2 H
Glucose 117 H
Calcium 9.1
Vital Signs:
Vital Signs
Temp Pulse Resp BP Pulse Ox
36.6 C 46 16 160/67 97
12/27/24 07:42 12/27/24 08:32 12/27/24 07:42 12/27/24 08:32 12/27/24 07:42
I&O
12/26/24 12/27/24 12/28/24
06:59 06:59 06:59
Intake Total 720 / 720 840 / 840
Balance 720 / 720 840 / 840
--- NOTE | 2024-12-27 10:16 | W.PN.CARDCBS ---
Addendum entered and electronically signed by Royce Alarcon MD 12/27/24 17:13:
I saw and examined the patient.
The [employer]'s note was reviewed and I agree with the note.
Comment:
GEN: No distress, awake, Ox3
HEENT: supple, anicteric, mmm
LUNGS: CTA, no wheezes/rales
CV: Reg, bailey, S1/S2, 1/6 syst LSB, no gallop
ABD: soft, BS+, NT/ND
EXT: No edema
NEURO: Gross non-focal
SKIN: No rash
Plan:
Remains in sinus rhythm. Is having some sinus bradycardia with heart rates in the 40s. Will hold amiodarone for now and follow clinically. Coreg was stopped yesterday. If she is unable to tolerate AV niels blockers or amiodarone may need to
consider pacemaker. Will continue to follow. Continue telemetry.
Will increase activity and see how she feels.
Continue Eliquis 2.5 mg p.o. twice daily.
Creatinine stable at 2.2
Original Note:
Today's Communication / Plan
-
Symptomatically improved, but continues with sinus bradycardia on telemetry monitoring.
Patient was taking amiodarone 200 mg BID prior to admission and this was initially continued following successful CV, but continues with sinus bradycardia and amiodarone now on hold.
Coreg was already stopped yesterday due to sinus bradycardia
Impression / Plan
-
Primary field recruiter is Dr. Cam Read
Primary care provider is Dr. Susie Jarquin PA-C
Assessment:
L flank pain, suspected musculoskeletal vs UTI
Concern for acute cholecystitis with negative HIDA
Paroxysmal to persistent atrial fibrillation
s/p PVI for AF 03/29/24
Developed symptomatic atrial fibrillation in November 2024 and was planned for outpatient CV , but ended up admitted as noted above
s/p successful CV 12/25/2024
Chronic HF improved EF
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
Orthostatic hypotension
CAD
s/p 3.0 mm Xience STEFAN to the proximal to mid LAD and PTCA alone of diagonal�1 and OM�1 02/18/2008
Subacute EQUITIES TRADER in the midportion of the RCA with collateral flow and patent previously placed proximal to mid LAD stent cardiac cath 12/19/2021
Chronic kidney disease, stage IIIb
Diabetes mellitus type 2
CVA in 2013
Hypertension
Dyslipidemia
Echo 04/01/2022: EF 55%, mild cLVH, stage II diastolic dysfunction, mild MAC, mild to moderate MR, mild AI
Echo 03/17/2024: EF 35%, moderate tricuspid regurgitation and elevated pulmonary artery pressures estimated at 55-60 mmHg.
Echo 03/30/2024: Urgent bedside study in the setting of rapid response, EF 40 to 45%, no evidence of pericardial effusion
Echo 06/04/2024: LVEF improved/normalized to 55 to 60%. There is possible basal septal akinesis and basal inferior hypokinesis.
Recommendations:
-Patient initially presented due to complaints of left flank pain. There was initial concern for acute cholecystitis and patient underwent HIDA scan which was negative. She is now being treated for a UTI
-Telemetry reviewed by me 12/27/2024 and patient remains in sinus bradycardia, no significant pauses
-This was the patient's first documented clinically significant recurrence of A-fib since PVI 03/29/2024. Patient has known paroxysmal to persistent Afib and h/o tachycardia mediated CM.
-Outpatient dose of amiodarone 200 mg BID was initially continued following successful CV, but patient has continued with sinus bradycardia. Patient received her usual dose of amiodarone on the morning of 12/27/2024 and amiodarone then placed on
hold. Will continue to follow on telemetry for improved HRs
-Outpatient dose of Coreg was increased this admission resulting in orthostasis. Coreg then stopped following successful CV on 12/25/2024 due to bradycardia.
-Orthostatic VS improved while working with PT 12/27/2024.
- Outpatient dose of Imdur ER stopped on 12/27/2024 due to orthostasis. Patient had LAD PCI in 2008 with patent stent on repeat cath in 2021 and there is also a new EQUITIES TRADER of the RCA with robust collateral flow. It seems Imdur ER was started
following cardiac cath in 2021, but no recent complaints of any chest pain.
-I called the patient's daughter, Snow, at about 4:30 PM on 12/27/2024 and left a message that I would try calling back again in about 5 minutes to review the most up-to-date plan of care.
Progress Note - Lead Dental Assistant
Subjective
Date of Service: December 27, 2024
She was less orthostatic working with PT today, but still tired
Objective
Labs:
12/27/24 06:19
12/27/24 06:19
Labs
Hgb 12.2 g/dL (12.0-16.0) 12/27/24 06:19
Hct 38.9 % (37.0-47.0) 12/27/24 06:19
Plt Count 83 10^3/uL (130-400) L 12/27/24 06:19
APTT 122.6 Sec (23.4-35.0) H 12/18/24 19:27
Sodium 134 mmol/L (135-145) L 12/27/24 06:19
Potassium 5.0 mmol/L (3.5-5.1) 12/27/24 06:19
BUN 36 mg/dl (7-17) H 12/27/24 06:19
Creatinine 2.2 mg/dL (0.6-1.0) H 12/27/24 06:19
Glucose 117 mg/dl (70-99) H 12/27/24 06:19
Vital Signs and I&O:
Vital Signs
Temp Pulse Resp BP Pulse Ox
97.8 F 46 16 160/67 97
12/27/24 07:42 12/27/24 08:32 12/27/24 07:42 12/27/24 08:32 12/27/24 07:42
Vital Signs
Temp Pulse Resp BP Pulse Ox
97.8 F 46 16 160/67 97
12/27/24 07:42 12/27/24 08:32 12/27/24 07:42 12/27/24 08:32 12/27/24 07:42
Intake & Output
12/25/24 12/26/24 12/27/24 12/28/24
06:59 06:59 06:59 06:59
Intake Total 720 / 720 840 / 840
Balance 720 / 720 840 / 840
Physical Exam
Physical Exam
GEN: NAD
HEENT: EOMI
LUNGS: RA
CV: SR on tele
[2024-12-27 10:59] VITALS: BP 127/50
[2024-12-27 11:37] LABS: Glucose - Point of Care 179 mg/dl (70-99)
--- NOTE | 2024-12-27 12:42 | CM ---
patient seen at bedside
PT rec SNF-patient declining SNF
referral in [facility] for [facility]
PLAN: Home with [facility] when stable
[2024-12-27 13:01] LABS: Glucose - Point of Care 157 mg/dl (70-99)
[2024-12-27] MEDS: NOVOLOG FLEXPEN-LOW RESISTANCE 1 UNITS SC (13:02)
[2024-12-27 14:51] VITALS: BP 144/62
--- NOTE | 2024-12-27 15:53 | W.PN.NEPH.PH ---
Today's Communication / Plan
-
AM labs
Assessment/Plan
-
84-year-old female with past medical history of coronary artery disease s/p PCI, paroxysmal atrial fibrillation on Eliquis, cardiomyopathy with recovered EF at 55% as of May 2024 though she does have stage III diastolic dysfunction, IDDM,
hypertension, CKD stage 3, chronic back pain secondary to degenerative disc disease; p/w acute on chronic left lumbar pain.
She has been ruled out for cholecystitis based on imaging negative HIDA scan.. She has history of atrial fibrillation status post ablation. Heart rate is relatively controlled she did have a ventricular response of around 129 she is being seen by
cardiology. She has previously been scheduled for a cardioversion which has been rescheduled.
Her blood pressures have been stable and no episodes of hypotension.
Appetite has been poor for about a week. She is starting to eat more she had an episode of diarrhea today
Currently being treated for urinary tract infection.
Urine cultures grew Klebsiella and E. coli. Blood cultures negative.
She has a baseline creatinine of 1.5 and has risen up to 2.2
Impression
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
Cardiomyopathy diastolic with a preserved EF
Gram-negative UTI
Chronic atrial fibrillation rate controlled
Mild hyponatremia/no signs of volume overload
Plan
stable renal function cr 2.2
s/p CV 12/25 , now with bradycardia had medicines adjusted by cardiology
follow BMP
upon d/c follow Nephro with us
-
-
Date of Service: December 27, 2024
CC / HPI / ROS
-
Chief Complaint:
OBIE
History of Present Illness:
OBIE/Cr stable 2.2
Na low at 134
K stable 4.7
HR low
bicarb 21
orthostatic BP today btu no symp per pt
Review of Systems:
no CP/SOB at rest
no dizziness
Labs
-
Labs:
WBC 9.9 10^3/uL (4.8-10.8) 12/27/24 06:19
RBC 3.97 10^6/uL (4.20-5.40) L 12/27/24 06:19
Hgb 12.2 g/dL (12.0-16.0) 12/27/24 06:19
Hct 38.9 % (37.0-47.0) 12/27/24 06:19
Plt Count 83 10^3/uL (130-400) L 12/27/24 06:19
Sodium 134 mmol/L (135-145) L 12/27/24 06:19
Potassium 5.0 mmol/L (3.5-5.1) 12/27/24 06:19
Chloride 108 mmol/L (98-107) H 12/27/24 06:19
Carbon Dioxide 24 mmol/L (22-30) 12/27/24 06:19
BUN 36 mg/dl (7-17) H 12/27/24 06:19
Creatinine 2.2 mg/dL (0.6-1.0) H 12/27/24 06:19
eGFR 21.57 12/27/24 06:19
Glucose 117 mg/dl (70-99) H 12/27/24 06:19
Calcium 9.1 mg/dl (8.4-10.2) 12/27/24 06:19
Albumin 3.3 g/dl (3.5-5.0) L 12/21/24 05:24
Physical Exam
-
Vital Signs:
Vital Signs
Temp Pulse Resp BP Pulse Ox
97.4 F 46 16 144/62 98
12/27/24 14:51 12/27/24 14:51 12/27/24 14:51 12/27/24 14:51 12/27/24 14:51
Cardiovascular:: Regular rate and rhythm
Respiratory:: Bilateral: CTA
Lung Excursion:: Normal
Abdomen:: Nontender and Soft
Extremity Edema:: None: Bilateral:
Garcia Catheter: No
[2024-12-27 16:35] LABS: Glucose - Point of Care 131 mg/dl (70-99)
--- NOTE | 2024-12-27 17:12 | W.PN.UPDATE ---
Update Note
Progress Note Update
Updated patient's daughter, Nallely, by phone 7 minutes. We reviewed medication changes for today including holding amiodarone. We discussed watching HR on telemetry with a goal resting heart rate of at least 50. We discussed that HR is
increasing with activity which is reassuring. We discussed possible outcomes including HR improving with holding or decreasing the dose of amiodarone and patient being discharged to home vs recurrence of A-fib with holding or decreasing the dose of
amiodarone requiring initiation of ablate and pace plan vs no improvement in HR despite medication changes and need for PPM placement, but no immediate need for AV node ablation.
[2024-12-27] MEDS: REMOVE LIDOCAINE PATCH 1 PATCH REMOVE ×2 (20:02)
[2024-12-27 20:18] VITALS: BP 127/53
[2024-12-27 21:54] LABS: Glucose - Point of Care 145 mg/dl (70-99)
[2024-12-27] MEDS: CRESTOR 10 MG PO (22:31)
[2024-12-27] MEDS: LANTUS 0.05 UNITS SC (22:31)
[2024-12-27 23:00] VITALS: BP 147/55
[2024-12-28] VITALS (7 sets, daily range): BP systolic 114–164; BP diastolic 60–67; PULSE 51–52; O2SAT 100; BMI 25.6
[2024-12-28] MEDS: SYNTHROID 75 MCG PO (06:21)
[2024-12-28 06:43] LABS: Blood Urea Nitrogen 33 mg/dl (7-17); Calcium 8.6 mg/dl (8.4-10.2); Carbon Dioxide 22 mmol/L (22-30); Chloride 109 mmol/L (98-107); Estimated Creatinine Clearance 21 ml/min; Glucose 104 mg/dl (70-99); Potassium 4.7 mmol/L (3.5-5.1); Sodium 136 mmol/L (135-145); eGFR 25.72
[2024-12-28 08:19] LABS: Hematocrit 39.2 % (37.0-47.0); Hemoglobin 12.4 g/dL (12.0-16.0); Mean Corp Hgb Conc. 31.6 g/dL (33.0-37.0); Mean Corpuscular Volume 96.8 fL (81.0-99.0); Platelet Count 85 10^3/uL (130-400); Red Cell Dist. Width 16.5 % (11.5-14.5)
--- NOTE | 2024-12-28 08:33 | W.PN.HOSP.TC ---
Today's Communication/Plan
-
Monitor HR
see A/P
Assessment / Plan
Assessment / Plan
84F with CAD s/p PCI, PAF on Eliquis, CHF, DM, HTN, CKD 3, chronic back pain, DDD; p/w acute on chronic left lumbar pain.
A/P:
# Persistent atrial fibrillation with RVR�symptomatic
# s/p ablation
Cont Eliquis
s/p inpatient DCCV 12/25 given her symptoms
Now with sinus bradycardia (HR improved from 40's to now 50's)
Stopped Coreg, holding amiodarone (d/w handle bender Dr Alarcon and he recc to hold amiodarone)
Monitor HR closely, Card following
# Left flank pain, much resolved, suspect due to MSK vs UTI
CT A/P shows LLL mild patchy parenchymal opacity, likely atelectasis, also GB wall thickening, moderate diffuse subcutaneous edema, slightly greater in left flank compared to right. There do not appear to be any issues with the kidneys, spleen, or
bowel, limited by noncontrast study.
Due to the possibility of acute cholecystitis, surgery was consulted, abdominal ultrasound and HIDA scan were performed, which did not show acute cholecystitis. There are findings consistent with possible chronic cholecystitis and hepatic
dysfunction.
No surgical plan. Stopped heparin drip. Resumed Eliquis.
Diet advanced to regular, tolerated well.
Discontinued IV morphine, also stopped oxycodone as pt feels opiate caused nausea.
Cont Tylenol and added lidocaine patch for pain control- pain improved significantly with local patch per pt. Patient reports she deals with the same left flank pain at home as well and uses Salonpas for it
# Nausea, resolved
pt feels that nausea was due to opiate/oxycodone, opiate stopped, amiodarone could be contributing
IV Zofran PRN
# Sepsis secondary to UTI, with OBIE�resolved
Urine culture on admit growing Klebsiella and E. coli, sensitive to ceftriaxone. Repeat urine cultures no growth. BCx NGTD
Received ceftriaxone for 5 days (completed treatment), stopped further Abx
Discontinued Flagyl as HIDA negative for acute cholecystitis
# OBIE on CKD stage 3
Proteinuria, 3+ albumin. Attempted to review old records to find cause but none available and pt doesn't know her pbx operator (previously Dr. Diehl but he retired)
CT showed subcutaneous edema
SCr 2.2 on admission to 1.9 today- this may be the new baseline
treated UTI as above.
Trialed IVF, now capped.
Renal on board
# CAD s/p PCI
HLD
cont statin
# DM
BG control is fair
In setting of nausea, decreased FUSE MAKER Lantus from 11 units to 5 units HS, and decrease FUSE MAKER aspart to 3 units AC to avoid hypoglycemia
ISS coverage
# Hypothyroidism
levothyroxine 75 mcg p.o. daily
# History of TIA/CVA
On Eliquis and statin
# Syncopal episode
# Orthostatic hypotension
12/21 following using the commode and BM, suspect vasovagal, could also have component of orthostatic hypotension
orthostatic negative 12/21 but positive 12/22 with PT
Coreg, Imdur stopped
Holding amiodarone for bradycardia
Cont trial of compression therapy with SRINIVAS wrap and abdominal binder
Informed RN to cont to monitor clinically, cont bed alarm, fall precaution etc.
DVT prophylaxis: Eliquis
CODE STATUS: Full code
Dispo: PT recc SNF, however family declined SNF and elected for HH
Anticipated Discharge: 24 - 48 hours
Subjective/Interval History
-
Date of Service: December 28, 2024
Objective Data
-
Labs:
Laboratory Results
12/28/24
05:49
WBC 10.9 H
Hgb 12.4
Hct 39.2
Plt Count 85 L
Sodium 136
Potassium 4.7
Chloride 109 H
Carbon Dioxide 22
BUN 33 H
Creatinine 1.9 H
Glucose 104 H
Calcium 8.6
Vital Signs:
Vital Signs
Temp Pulse Resp BP Pulse Ox
36.7 C 51 16 164/67 93
12/28/24 07:57 12/28/24 07:57 12/28/24 07:57 12/28/24 07:57 12/28/24 07:57
I&O
12/27/24 12/28/24 12/29/24
06:59 06:59 06:59
Intake Total 840 / 840 440 / 440
Balance 840 / 840 440 / 440
Review of Systems
-
History Source: Patient
All other systems: Reviewed and negative
Physical Exam
-
General: Well Developed, Well Nourished, No Apparent Distress, Comfortable and Conversant
HEENT: Normocephalic and Atraumatic
Respiratory: Clear to Auscultation and Non Labored Respirations; Negative Accessory Resp Muscle Use
Cardiac: Regular Rhythm and S1/S2; Negative Murmur, Rub or Gallop
GI: Soft, Nontender, Nondistended and Normal Bowel Sounds
Musculoskeletal: No Edema
Skin: Warm and Dry
Neuro: Awake and Alert
Psych: Calm and Intact Judgement/Insight
Data Reviewed
-
Labs: Labs Reviewed by me
[2024-12-28] MEDS: ELIQUIS 2.5 MG PO ×2 (09:17→20:20)
[2024-12-28] MEDS: LOW STRENGTH ASPIRIN 81 MG PO (09:17)
[2024-12-28] MEDS: LIDOCAINE 4% PATCH 1 PATCH TOPICAL (09:17)
[2024-12-28 09:23] LABS: Glucose - Point of Care 112 mg/dl (70-99)
[2024-12-28] MEDS: NOVOLOG FLEXPEN-LOW RESISTANCE SC (09:26)
[2024-12-28] MEDS: LIDOCAINE 4% PATCH TOPICAL (09:28)
[2024-12-28] MEDS: TYLENOL 1000 MG PO (09:32)
[2024-12-28] MEDS: NOVOLOG FLEXPEN 3 UNITS SC ×3 (09:33→17:18)
--- NOTE | 2024-12-28 10:49 | W.PN.CARDCBS ---
Today's Communication / Plan
-
Resting heart rate remains with sinus bradycardia at approximately 50 bpm. Now off Coreg and amiodarone
Increase activity today and ambulate and follow heart rate trends. Hopefully repeat start amiodarone 100 mg daily in a.m.
Continue Eliquis 2.5 mg p.o. twice daily.
She may need a permanent pacemaker if continues to have tachy/bradycardia and sick sinus syndrome with her paroxysmal atrial fibrillation.
Impression / Plan
-
Primary tafe lecturer is Dr. Cam Read
Primary care provider is Dr. Susie Jarquin PA-C
Assessment:
L flank pain, suspected musculoskeletal vs UTI
Concern for acute cholecystitis with negative HIDA
Paroxysmal to persistent atrial fibrillation
s/p PVI for AF 03/29/24
Developed symptomatic atrial fibrillation in November 2024 and was planned for outpatient CV but ended up admitted as noted above
s/p successful CV 12/25/2024
Chronic HF improved EF
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
Orthostatic hypotension
CAD
s/p 3.0 mm Xience STEFAN to the proximal to mid LAD and PTCA alone of diagonal�1 and OM�1 02/18/2008
Subacute MACHINE PACKAGING TECHNICIAN in the midportion of the RCA with collateral flow and patent previously placed proximal to mid LAD stent cardiac cath 12/19/2021
Chronic kidney disease, stage IIIb
Diabetes mellitus type 2
CVA in 2013
Hypertension
Dyslipidemia
Echo 04/01/2022: EF 55%, mild cLVH, stage II diastolic dysfunction, mild MAC, mild to moderate MR, mild AI
Echo 03/17/2024: EF 35%, moderate tricuspid regurgitation and elevated pulmonary artery pressures estimated at 55-60 mmHg.
Echo 03/30/2024: Urgent bedside study in the setting of rapid response, EF 40 to 45%, no evidence of pericardial effusion
Echo 06/04/2024: LVEF improved/normalized to 55 to 60%. There is possible basal septal akinesis and basal inferior hypokinesis.
Recommendations:
-Patient initially presented due to complaints of left flank pain. There was initial concern for acute cholecystitis and patient underwent HIDA scan which was negative. She is now being treated for a UTI
-Telemetry reviewed by me 12/27/2024 and patient remains in sinus bradycardia, no significant pauses
-This was the patient's first documented clinically significant recurrence of A-fib since PVI 03/29/2024. Patient has known paroxysmal to persistent Afib and h/o tachycardia mediated CM.
-She had a cardioversion on Wednesday. After cardioversion she has had marked sinus bradycardia in the 40s. Coreg and amiodarone were stopped. Current heart rate is around 50 at rest. Will increase activity today and follow her heart rate. Ideally
we would add back amiodarone 100 mg daily tomorrow if her heart rate is stable.
-Outpatient dose of Coreg was increased this admission resulting in orthostasis. Coreg then stopped following successful CV on 12/25/2024 due to bradycardia.
-Orthostatic VS improved while working with PT 12/27/2024.
- Outpatient dose of Imdur ER stopped on 12/27/2024 due to orthostasis. Patient had LAD PCI in 2008 with patent stent on repeat cath in 2021 and there is also a new MACHINE PACKAGING TECHNICIAN of the RCA with robust collateral flow. It seems Imdur ER was started
following cardiac cath in 2021, but no recent complaints of any chest pain.
Progress Note - [employer]
Subjective
Date of Service: December 28, 2024
Heart rates are somewhat improved but still around 45 to 52 bpm. She has not ambulated much. She denies any chest pains
Objective
Labs:
12/28/24 05:49
12/28/24 05:49
Labs
Hgb 12.4 g/dL (12.0-16.0) 12/28/24 05:49
Hct 39.2 % (37.0-47.0) 12/28/24 05:49
Plt Count 85 10^3/uL (130-400) L 12/28/24 05:49
APTT 122.6 Sec (23.4-35.0) H 12/18/24 19:27
Sodium 136 mmol/L (135-145) 12/28/24 05:49
Potassium 4.7 mmol/L (3.5-5.1) 12/28/24 05:49
BUN 33 mg/dl (7-17) H 12/28/24 05:49
Creatinine 1.9 mg/dL (0.6-1.0) H 12/28/24 05:49
Glucose 104 mg/dl (70-99) H 12/28/24 05:49
Vital Signs and I&O:
Vital Signs
Temp Pulse Resp BP Pulse Ox
98.1 F 51 16 164/67 93
12/28/24 07:57 12/28/24 07:57 12/28/24 07:57 12/28/24 07:57 12/28/24 07:57
Vital Signs
Temp Pulse Resp BP Pulse Ox
98.1 F 51 16 164/67 93
12/28/24 07:57 12/28/24 07:57 12/28/24 07:57 12/28/24 07:57 12/28/24 07:57
Intake & Output
12/26/24 12/27/24 12/28/24 12/29/24
06:59 06:59 06:59 06:59
Intake Total 720 / 720 840 / 840 440 / 440
Balance 720 / 720 840 / 840 440 / 440
Physical Exam
Physical Exam
GEN: No distress, awake, Ox3
HEENT: supple, anicteric, mmm
LUNGS: CTA, no wheezes/rales
CV: Reg, S1/S2, 1/6 syst LSB, no gallop
ABD: soft, BS+, NT/ND
EXT: No edema
NEURO: Gross non-focal
SKIN: No rash
[2024-12-28 13:06] LABS: Glucose - Point of Care 234 mg/dl (70-99)
--- NOTE | 2024-12-28 13:15 | W.PN.NEPH.PH ---
Today's Communication / Plan
-
AM lab
Assessment/Plan
-
84-year-old female with past medical history of coronary artery disease s/p PCI, paroxysmal atrial fibrillation on Eliquis, cardiomyopathy with recovered EF at 55% as of May 2024 though she does have stage III diastolic dysfunction, IDDM,
hypertension, CKD stage 3, chronic back pain secondary to degenerative disc disease; p/w acute on chronic left lumbar pain.
She has been ruled out for cholecystitis based on imaging negative HIDA scan.. She has history of atrial fibrillation status post ablation. Heart rate is relatively controlled she did have a ventricular response of around 129 she is being seen by
cardiology. She has previously been scheduled for a cardioversion which has been rescheduled.
Her blood pressures have been stable and no episodes of hypotension.
Appetite has been poor for about a week. She is starting to eat more she had an episode of diarrhea today
Currently being treated for urinary tract infection.
Urine cultures grew Klebsiella and E. coli. Blood cultures negative.
She has a baseline creatinine of 1.5 and has risen up to 2.2
Impression
Acute on chronic kidney disease stage IIIb previously seen by [place] weather analyst but has since retired/baseline 1.6�1.8
Cardiomyopathy diastolic with a preserved EF
Gram-negative UTI
Chronic atrial fibrillation rate controlled
Mild hyponatremia/no signs of volume overload
Plan
stable renal function cr 2.2
s/p CV 12/25 , now with bradycardia had medicines adjusted by cardiology
follow BMP= creatinine improving 1.9
upon d/c follow Nephro with us
-
-
Date of Service: December 28, 2024
CC / HPI / ROS
-
Chief Complaint:
OBIE
History of Present Illness:
OBIE/Cr stable 2.2
Na low at 134
K stable 4.7
HR low
bicarb 21
orthostatic BP today btu no symp per pt
Review of Systems:
no CP/SOB at rest
no dizziness
Labs
-
Labs:
WBC 10.9 10^3/uL (4.8-10.8) H 12/28/24 05:49
RBC 4.05 10^6/uL (4.20-5.40) L 12/28/24 05:49
Hgb 12.4 g/dL (12.0-16.0) 12/28/24 05:49
Hct 39.2 % (37.0-47.0) 12/28/24 05:49
Plt Count 85 10^3/uL (130-400) L 12/28/24 05:49
Sodium 136 mmol/L (135-145) 12/28/24 05:49
Potassium 4.7 mmol/L (3.5-5.1) 12/28/24 05:49
Chloride 109 mmol/L (98-107) H 12/28/24 05:49
Carbon Dioxide 22 mmol/L (22-30) 12/28/24 05:49
BUN 33 mg/dl (7-17) H 12/28/24 05:49
Creatinine 1.9 mg/dL (0.6-1.0) H 12/28/24 05:49
eGFR 25.72 12/28/24 05:49
Glucose 104 mg/dl (70-99) H 12/28/24 05:49
Calcium 8.6 mg/dl (8.4-10.2) 12/28/24 05:49
Albumin 3.3 g/dl (3.5-5.0) L 12/21/24 05:24
Physical Exam
-
Vital Signs:
Vital Signs
Temp Pulse Resp BP Pulse Ox
97.7 F 49 16 160/62 97
12/28/24 11:23 12/28/24 11:23 12/28/24 11:23 12/28/24 11:23 11/13/25 11:23
Cardiovascular:: Regular rate and rhythm
Respiratory:: Bilateral: CTA
Lung Excursion:: Normal
Abdomen:: Nontender and Soft
Extremity Edema:: None: Bilateral:
Garcia Catheter: No
[2024-12-28] MEDS: NOVOLOG FLEXPEN-LOW RESISTANCE 2 UNITS SC (13:17)
--- NOTE | 2024-12-28 13:50 | PTCARENOTE ---
at 13:14, patient with significant drop of b/p during therapy in sitting position with some dizziness, wearing Pascual stockings intially and not binder. pt agreed to wear binder after education, see OT VS documentation. made Dr. Mercado and Dr. Alarcon
made aware. no new orders obtained, will continue
[2024-12-28 17:06] LABS: Glucose - Point of Care 185 mg/dl (70-99)
[2024-12-28] MEDS: NOVOLOG FLEXPEN-LOW RESISTANCE 1 UNITS SC (17:18)
[2024-12-28] MEDS: REMOVE LIDOCAINE PATCH 1 PATCH REMOVE (20:20)
[2024-12-28] MEDS: REMOVE LIDOCAINE PATCH REMOVE (20:20)
[2024-12-28 21:42] LABS: Glucose - Point of Care 157 mg/dl (70-99)
[2024-12-28] MEDS: LANTUS 0.05 UNITS SC (21:43)
[2024-12-28] MEDS: CRESTOR 10 MG PO (21:43)
[2024-12-29] VITALS (8 sets, daily range): BP systolic 134–167; BP diastolic 55–71; PULSE 52–55; O2SAT 98; BMI 25.6
[2024-12-29] MEDS: SYNTHROID 75 MCG PO (04:41)
[2024-12-29] MEDS: TYLENOL 1000 MG PO ×2 (04:41→20:29)
[2024-12-29 06:28] LABS: Hematocrit 39.2 % (37.0-47.0); Hemoglobin 12.2 g/dL (12.0-16.0); Mean Corp Hgb Conc. 31.1 g/dL (33.0-37.0); Mean Corpuscular Volume 95.6 fL (81.0-99.0); Platelet Count 82 10^3/uL (130-400); Red Cell Dist. Width 16.6 % (11.5-14.5)
[2024-12-29 06:37] LABS: Blood Urea Nitrogen 27 mg/dl (7-17); Calcium 8.5 mg/dl (8.4-10.2); Carbon Dioxide 27 mmol/L (22-30); Chloride 108 mmol/L (98-107); Estimated Creatinine Clearance 21 ml/min; Glucose 120 mg/dl (70-99); Potassium 4.8 mmol/L (3.5-5.1); Sodium 136 mmol/L (135-145); eGFR 25.72
[2024-12-29 08:03] LABS: Glucose - Point of Care 130 mg/dl (70-99)
--- NOTE | 2024-12-29 08:16 | W.PN.HOSP.TC ---
Today's Communication/Plan
-
Monitor for symptoms with ambulation
Holding off amiodarone, BP meds today
Discussed with CM, SNF list given, pending choice
Assessment / Plan
Assessment / Plan
84F with CAD s/p PCI, PAF on Eliquis, CHF, DM, HTN, CKD 3, chronic back pain, DDD; p/w acute on chronic left lumbar pain.
A/P:
# Persistent atrial fibrillation with RVR�symptomatic
# s/p ablation
Cont Eliquis
s/p inpatient DCCV 12/25 given her symptoms
Now with sinus bradycardia (HR improved from 40's to now 50's)
Stopped Coreg, holding amiodarone (d/w toddler caregiver Dr Alarcon and he rec to hold amiodarone)
Monitor HR closely, Card following. Plan is possibly to resume amiodarone to prevent recurrence of A-fib after patient is seen in clinic.
will monitor for symptoms or orthostatic hypotension with ambulation
# Left flank pain, much resolved, suspect due to MSK vs UTI
CT A/P shows LLL mild patchy parenchymal opacity, likely atelectasis, also GB wall thickening, moderate diffuse subcutaneous edema, slightly greater in left flank compared to right. There do not appear to be any issues with the kidneys, spleen, or
bowel, limited by noncontrast study.
Due to the possibility of acute cholecystitis, surgery was consulted, abdominal ultrasound and HIDA scan were performed, which did not show acute cholecystitis. There are findings consistent with possible chronic cholecystitis and hepatic
dysfunction.
No surgical plan. Stopped heparin drip. Resumed Eliquis.
Diet advanced to regular, tolerated well.
Discontinued IV morphine, also stopped oxycodone as pt feels opiate caused nausea.
Cont Tylenol and added lidocaine patch for pain control- pain improved significantly with local patch per pt. Patient reports she deals with the same left flank pain at home as well and uses Salonpas for it
# Nausea, resolved
pt feels that nausea was due to opiate/oxycodone, opiate stopped, amiodarone could be contributing
IV Zofran PRN
# Sepsis secondary to UTI, with OBIE�resolved
Urine culture on admit growing Klebsiella and E. coli, sensitive to ceftriaxone. Repeat urine cultures no growth. BCx NGTD
Received ceftriaxone for 5 days (completed treatment), stopped further Abx
Discontinued Flagyl as HIDA negative for acute cholecystitis
# OBIE on CKD stage 3
Proteinuria, 3+ albumin. Attempted to review old records to find cause but none available and pt doesn't know her humanities teacher (previously Dr. Diehl but he retired)
CT showed subcutaneous edema
SCr 2.2 on admission to [facility] 1.9 today- this may be the new baseline
treated UTI as above.
Trialed IVF, now capped.
Renal on board, outpatient follow-up with nephrology on discharge
# CAD s/p PCI
HLD
cont statin
# DM
BG control is fair
In setting of nausea, decreased BEDSPREAD CUTTER HAND Lantus from 11 units to 5 units HS, and decrease BEDSPREAD CUTTER HAND aspart to 3 units AC to avoid hypoglycemia. Continue with this dose for now
ISS coverage
# Hypothyroidism
levothyroxine 75 mcg p.o. daily
# History of TIA/CVA
On Eliquis and statin
# Syncopal episode
# Orthostatic hypotension
12/21 following using the commode and BM, suspect vasovagal, could also have component of orthostatic hypotension
orthostatic negative 12/21 but positive 12/22 with PT
Coreg, Imdur stopped, but BPs are elevated now, per cardiology possible initiation of Imdur or amlodipine if BP remains elevated
Holding amiodarone for bradycardia
Cont trial of compression therapy with SRINIVAS wrap and abdominal binder
Informed RN to cont to monitor clinically, cont bed alarm, fall precaution etc.
DVT prophylaxis: Eliquis
CODE STATUS: Full code
Dispo: PT rec SNF, however family declined SNF and elected for . After repeat discussion, patient may be willing to go, discussed with classification case manager, facility list given and pending facility choice/referral.
Anticipated Discharge: 24 - 48 hours
Subjective/Interval History
-
Date of Service: December 29, 2024
Patient denies any acute issues overnight, notes no lightheadedness, chest pain, shortness of breath at rest. Discussed with cardiology team at bedside. Discussed with RN, plan is to ambulate patient today to see if symptoms emerge.
Objective Data
-
Labs:
Laboratory Results
12/29/24
05:59
WBC 10.8
Hgb 12.2
Hct 39.2
Plt Count 82 L
Sodium 136
Potassium 4.8
Chloride 108 H
Carbon Dioxide 27
BUN 27 H
Creatinine 1.9 H
Glucose 120 H
Calcium 8.5
Vital Signs:
Vital Signs
Temp Pulse Resp BP Pulse Ox
98.2 F 53 16 163/59 98
12/29/24 07:33 12/29/24 07:33 12/29/24 07:33 12/29/24 07:33 12/29/24 07:33
I&O
12/28/24 12/29/24 12/30/24
06:59 06:59 06:59
Intake Total 440 / 440 840 / 840
Balance 440 / 440 840 / 840
Review of Systems
-
All other systems: Reviewed and negative
Physical Exam
-
General: Well Developed, Well Nourished, No Apparent Distress, Comfortable and Conversant
HEENT: Normocephalic and Atraumatic
Respiratory: Clear to Auscultation and Non Labored Respirations; Negative Accessory Resp Muscle Use
Cardiac: Regular Rhythm and S1/S2; Negative Murmur, Rub or Gallop
GI: Soft, Nontender, Nondistended and Normal Bowel Sounds
Musculoskeletal: No Edema
Skin: Warm and Dry
Neuro: Awake and Alert
Psych: Calm and Intact Judgement/Insight
Data Reviewed
-
Labs: Labs Reviewed by me, Discussed with Physician and Discussed with Patient
[2024-12-29] MEDS: NOVOLOG FLEXPEN-LOW RESISTANCE SC (08:37)
[2024-12-29] MEDS: LOW STRENGTH ASPIRIN 81 MG PO (08:45)
[2024-12-29] MEDS: LIDOCAINE 4% PATCH 1 PATCH TOPICAL ×2 (08:45)
[2024-12-29] MEDS: ELIQUIS 2.5 MG PO ×2 (08:45→20:22)
[2024-12-29] MEDS: NOVOLOG FLEXPEN 3 UNITS SC ×3 (09:14→17:42)
--- NOTE | 2024-12-29 09:34 | W.PN.CARDCBS ---
Addendum entered and electronically signed by Litzy Damon DO 12/29/24 17:19:
I saw and examined the patient.
The Press Helper's note was reviewed and I agree with the note.
Comment: Patient seen and examined. Offers no new complaints. No dizziness/lightheadedness at rest.
GEN: No distress, awake, Ox3, sitting in bed
LUNGS: CTA, no wheezes/rales
CV: Reg, S1/S2, no murmur, rub or gallop
ABD: soft, BS+, NT/ND
EXT: No edema
NEURO: Gross non-focal
Plan:
84-year-old female presented with left flank pain with initial concern for acute cholecystitis.
-HIDA scan negative
-General surgery consulted but determined surgery was not indicated.
-Repeat urine cultures no growth. BCx NGTD
-Urine culture on admit growing Klebsiella and E. coli, sensitive to ceftriaxone. Received ceftriaxone for 5 days (completed treatment), stopped further AbxGiven antibiotics, now resolved
Persistent atrial fibrillation with plan prior to hospitalization for outpatient cardioversion status post DC cardioversion 12/25/2024 to sinus bradycardia
-Patient has tachybradycardia syndrome and we discussed difficulties with managing. No urgent indication for for pacemaker but likely will benefit
-Would not resume Coreg or amiodarone as heart rates are still in the high 40s/low 50s.
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
- Continue Eliquis anticoagulation
History of hypothyroidism however was found to be hyperthyroidism during admission in August 2024.
-Will recheck TSH
Syncope with orthostatic hypotension and bradycardia
- Blood pressures improved
- Would continue to hold Coreg and amiodarone and monitor heart rate trends.
- Patient had previously been on Imdur which was also discontinued. No chest pain or pressure. Will follow blood pressures and orthostatics tomorrow and if continue to be any improved could consider low-dose Imdur ER 30 mg tomorrow
PT/OT with plan for SNF.
Original Note:
Today's Communication / Plan
-
Heart rates remain in upper 40s and low 50s beats per minute. Ideally would like to add back low-dose amiodarone 100 mg daily to prevent reoccurrence of A-fib. Would hold on adding back today.
Encourage patient to ambulate and trend heart rates. If still symptomatic with ambulation strongly recommend rehab
Consider resuming Imdur or adding low-dose amlodipine if blood pressure remains elevated
Outpatient cardiology follow-up has been arranged for 01/04/2025. Could consider adding back low-dose amiodarone at that time
Impression / Plan
-
Primary mri specialist is Dr. Cam Read
Primary care provider is Dr. Susie Jarquin PA-C
Assessment:
L flank pain, suspected musculoskeletal vs UTI
Concern for acute cholecystitis with negative HIDA
Paroxysmal to persistent atrial fibrillation
s/p PVI for AF 03/29/24
Developed symptomatic atrial fibrillation in November 2024 and was planned for outpatient CV but ended up admitted as noted above
s/p successful CV 12/25/2024
Chronic HF improved EF
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
Orthostatic hypotension
CAD
s/p 3.0 mm Xience STEFAN to the proximal to mid LAD and PTCA alone of diagonal�1 and OM�1 02/18/2008
Subacute DIESEL ENGINEER in the midportion of the RCA with collateral flow and patent previously placed proximal to mid LAD stent cardiac cath 12/19/2021
Chronic kidney disease, stage IIIb
Diabetes mellitus type 2
CVA in 2013
Hypertension
Dyslipidemia
Echo 04/01/2022: EF 55%, mild cLVH, stage II diastolic dysfunction, mild MAC, mild to moderate MR, mild AI
Echo 03/17/2024: EF 35%, moderate tricuspid regurgitation and elevated pulmonary artery pressures estimated at 55-60 mmHg.
Echo 03/30/2024: Urgent bedside study in the setting of rapid response, EF 40 to 45%, no evidence of pericardial effusion
Echo 06/04/2024: LVEF improved/normalized to 55 to 60%. There is possible basal septal akinesis and basal inferior hypokinesis.
Recommendations:
-Patient initially presented 12/16/2024 due to complaints of left flank pain. There was initial concern for acute cholecystitis and patient underwent HIDA scan which was negative. Musculoskeletal injury versus UTI. Urine culture on admit growing
Klebsiella and E. coli, sensitive to ceftriaxone. Repeat urine cultures no growth. BCx NGTD
Received ceftriaxone for 5 days (completed treatment), stopped further AbxGiven antibiotics, now resolved
Found to be in atrial fibrillation as outpatient prior to admission and was scheduled for cardioversion 12/19/2024. This was the patient's first documented clinically significant recurrence of A-fib since PVI 03/29/2024. Patient has known paroxysmal
to persistent Afib and h/o tachycardia mediated CM.
- s/p cardioversion on 12/25/24. After cardioversion she has had marked sinus bradycardia in the 40s. Coreg and amiodarone were stopped. Per review of telemetry 12/29/2024 heart rates remain in upper 40s to 50s.
- Encouraged pt to increase activity today and follow her heart rate. Ideally we would add back amiodarone 100 mg daily if her heart rates improve, but continues to remain low at this time. Would not resume amiodarone at this time
-She may need a permanent pacemaker if continues to have tachy/bradycardia and sick sinus syndrome with her paroxysmal atrial fibrillation. This can be discussed and reassessed as outpatient. Currently no indication for pacemaker
-Outpatient dose of Coreg was increased this admission resulting in orthostasis. Coreg then stopped following successful CV on 12/25/2024 due to bradycardia.
- Outpatient dose of Imdur ER stopped on 12/27/2024 due to orthostasis. Patient had LAD PCI in 2008 with patent stent on repeat cath in 2021 and there is also a new DIESEL ENGINEER of the RCA with robust collateral flow. It seems Imdur ER was started
following cardiac cath in 2021, but no recent complaints of any chest pain.
-Orthostatic VS improved while working with PT 12/27/2024. Blood pressures now starting to elevate. Consider adding low-dose Imdur or resuming isosorbide (held earlier in admission due to symptomatic hypotension).
- Continue aspirin, Eliquis, rosuvastatin
History of hypothyroidism however was found to be hyperthyroidism during admission in August 2024.
-Will recheck TSH
Outpatient cardiology follow-up has been arranged for 01/04/2025
Plan discussed with hospitalist who is at bedside
Progress Note - Server Service Assistant
Subjective
Date of Service: December 29, 2024
Patient seen and examined. Patient sitting in bed finishing breakfast. Reports she is feeling better. Still with occasional dizziness when ambulating.
Objective
Labs:
12/29/24 05:59
12/29/24 05:59
Labs
Hgb 12.2 g/dL (12.0-16.0) 12/29/24 05:59
Hct 39.2 % (37.0-47.0) 12/29/24 05:59
Plt Count 82 10^3/uL (130-400) L 12/29/24 05:59
APTT 122.6 Sec (23.4-35.0) H 12/18/24 19:27
Sodium 136 mmol/L (135-145) 12/29/24 05:59
Potassium 4.8 mmol/L (3.5-5.1) 12/29/24 05:59
BUN 27 mg/dl (7-17) H 12/29/24 05:59
Creatinine 1.9 mg/dL (0.6-1.0) H 12/29/24 05:59
Glucose 120 mg/dl (70-99) H 12/29/24 05:59
Vital Signs and I&O:
Vital Signs
Temp Pulse Resp BP Pulse Ox
98.2 F 53 16 163/59 98
12/29/24 07:33 12/29/24 07:33 12/29/24 07:33 12/29/24 07:33 12/29/24 07:33
Vital Signs
Temp Pulse Resp BP Pulse Ox
98.2 F 53 16 163/59 98
12/29/24 07:33 12/29/24 07:33 12/29/24 07:33 12/29/24 07:33 12/29/24 07:33
Intake & Output
12/27/24 12/28/24 12/29/24 12/30/24
06:59 06:59 06:59 06:59
Intake Total 840 / 840 440 / 440 840 / 840
Balance 840 / 840 440 / 440 840 / 840
Physical Exam
Physical Exam
GEN: No distress, awake, Ox3, sitting in bed
HEENT: supple, anicteric, mmm
LUNGS: CTA, no wheezes/rales
CV: Reg, S1/S2, no murmur, rub or gallop
ABD: soft, BS+, NT/ND
EXT: No edema, clubbing or cyanosis
NEURO: Gross non-focal
SKIN: No rash, warm, dry, pink
[2024-12-29 12:03] LABS: Glucose - Point of Care 210 mg/dl (70-99)
[2024-12-29] MEDS: NOVOLOG FLEXPEN-LOW RESISTANCE 2 UNITS SC ×2 (12:49→17:42)
--- NOTE | 2024-12-29 13:11 | W.PN.NEPH.PH ---
Today's Communication / Plan
-
follow labs
Assessment/Plan
-
84-year-old female with past medical history of coronary artery disease s/p PCI, paroxysmal atrial fibrillation on Eliquis, cardiomyopathy with recovered EF at 55% as of May 2024 though she does have stage III diastolic dysfunction, IDDM,
hypertension, CKD stage 3, chronic back pain secondary to degenerative disc disease; p/w acute on chronic left lumbar pain.
She has been ruled out for cholecystitis based on imaging negative HIDA scan.. She has history of atrial fibrillation status post ablation. Heart rate is relatively controlled she did have a ventricular response of around 129 she is being seen by
cardiology. She has previously been scheduled for a cardioversion which has been rescheduled.
Her blood pressures have been stable and no episodes of hypotension.
Appetite has been poor for about a week. She is starting to eat more she had an episode of diarrhea today
Currently being treated for urinary tract infection.
Urine cultures grew Klebsiella and E. coli. Blood cultures negative.
She has a baseline creatinine of 1.5 and has risen up to 2.2
Impression
Acute on chronic kidney disease stage IIIb previously seen by [place] raw hide trimmer but has since retired/baseline 1.6�1.8
Cardiomyopathy diastolic with a preserved EF
Gram-negative UTI
Chronic atrial fibrillation rate controlled
Mild hyponatremia/no signs of volume overload
Plan
stable renal function cr 1.9
s/p CV 12/25 , now with bradycardia had medicines adjusted by cardiology
BP increasing trend,bit orhtostatic vitals on 12/28, cont TEDs
abnormal TSH an FT4 -defer to primary
upon d/c follow Nephro with us
-
-
Date of Service: December 29, 2024
CC / HPI / ROS
-
Chief Complaint:
OBIE
History of Present Illness:
OBIE/Cr stable 1.9
Na normal
K stable 4.8
HR low
bicarb 27
orthostatic BP on 12/28
Review of Systems:
no CP/SOB at rest
no dizziness on bed
Labs
-
Labs:
WBC 10.8 10^3/uL (4.8-10.8) 12/29/24 05:59
RBC 4.10 10^6/uL (4.20-5.40) L 12/29/24 05:59
Hgb 12.2 g/dL (12.0-16.0) 12/29/24 05:59
Hct 39.2 % (37.0-47.0) 12/29/24 05:59
Plt Count 82 10^3/uL (130-400) L 12/29/24 05:59
Sodium 136 mmol/L (135-145) 12/29/24 05:59
Potassium 4.8 mmol/L (3.5-5.1) 12/29/24 05:59
Chloride 108 mmol/L (98-107) H 12/29/24 05:59
Carbon Dioxide 27 mmol/L (22-30) 12/29/24 05:59
BUN 27 mg/dl (7-17) H 12/29/24 05:59
Creatinine 1.9 mg/dL (0.6-1.0) H 12/29/24 05:59
eGFR 25.72 12/29/24 05:59
Glucose 120 mg/dl (70-99) H 12/29/24 05:59
Calcium 8.5 mg/dl (8.4-10.2) 12/29/24 05:59
Albumin 3.3 g/dl (3.5-5.0) L 12/21/24 05:24
Physical Exam
-
Vital Signs:
Vital Signs
Temp Pulse Resp BP Pulse Ox
98.3 F 53 16 167/71 98
12/29/24 11:35 12/29/24 11:35 12/29/24 11:35 12/29/24 11:35 12/29/24 11:35
Cardiovascular:: Regular rate and rhythm
Respiratory:: Bilateral: CTA
Lung Excursion:: Normal
Abdomen:: Nontender and Soft
Extremity Edema:: None: Bilateral:
Garcia Catheter: No
--- NOTE | 2024-12-29 15:40 | CM ---
spoke with patient daughter & patient yesterday regarding SNF
PT rec SNF - patient was declining SNF wanted [facility]
[email or web address] care compare information given to dtr for facilities
they will review & get back to CM
CM spoke to patient today - states daughter at work & for CM to follow up with her
Referrals to be placed in careport if they want SNF
PLAN: SNF vs. home with [facility], CM to follow up with daughter
[2024-12-29 16:28] LABS: Glucose - Point of Care 204 mg/dl (70-99)
[2024-12-29] MEDS: REMOVE LIDOCAINE PATCH 1 PATCH REMOVE ×2 (20:22)
[2024-12-29 21:41] LABS: Glucose - Point of Care 139 mg/dl (70-99)
[2024-12-29] MEDS: CRESTOR 10 MG PO (21:46)
[2024-12-29] MEDS: LANTUS 0.05 UNITS SC (21:46)
[2024-12-30] VITALS (7 sets, daily range): BP systolic 127–177; BP diastolic 56–72; BMI 24.9
[2024-12-30] MEDS: SYNTHROID 75 MCG PO (05:02)
[2024-12-30 07:21] LABS: Glucose - Point of Care 105 mg/dl (70-99)
[2024-12-30] MEDS: NOVOLOG FLEXPEN-LOW RESISTANCE SC (08:02)
[2024-12-30] MEDS: ELIQUIS 2.5 MG PO ×2 (08:02→19:53)
[2024-12-30] MEDS: LOW STRENGTH ASPIRIN 81 MG PO (08:02)
[2024-12-30] MEDS: NOVOLOG FLEXPEN 3 UNITS SC ×3 (08:02→17:08)
[2024-12-30] MEDS: LIDOCAINE 4% PATCH TOPICAL ×4 (08:02→11:56)
[2024-12-30 08:09] LABS: Hematocrit 39.0 % (37.0-47.0); Hemoglobin 11.9 g/dL (12.0-16.0); Mean Corp Hgb Conc. 30.5 g/dL (33.0-37.0); Mean Corpuscular Volume 96.8 fL (81.0-99.0); Platelet Count 92 10^3/uL (130-400); Red Cell Dist. Width 16.7 % (11.5-14.5)
[2024-12-30 08:35] LABS: Blood Urea Nitrogen 24 mg/dl (7-17); Calcium 8.5 mg/dl (8.4-10.2); Carbon Dioxide 25 mmol/L (22-30); Chloride 108 mmol/L (98-107); Estimated Creatinine Clearance 25 ml/min; Glucose 101 mg/dl (70-99); Potassium 4.9 mmol/L (3.5-5.1); Sodium 138 mmol/L (135-145); eGFR 31.61
--- NOTE | 2024-12-30 10:26 | W.PN.NEPH.PH ---
Today's Communication / Plan
-
follow labs
Assessment/Plan
-
84-year-old female with past medical history of coronary artery disease s/p PCI, paroxysmal atrial fibrillation on Eliquis, cardiomyopathy with recovered EF at 55% as of May 2024 though she does have stage III diastolic dysfunction, IDDM,
hypertension, CKD stage 3, chronic back pain secondary to degenerative disc disease; p/w acute on chronic left lumbar pain.
She has been ruled out for cholecystitis based on imaging negative HIDA scan.. She has history of atrial fibrillation status post ablation. Heart rate is relatively controlled she did have a ventricular response of around 129 she is being seen by
cardiology. She has previously been scheduled for a cardioversion which has been rescheduled.
Her blood pressures have been stable and no episodes of hypotension.
Appetite has been poor for about a week. She is starting to eat more she had an episode of diarrhea today
Currently being treated for urinary tract infection.
Urine cultures grew Klebsiella and E. coli. Blood cultures negative.
She has a baseline creatinine of 1.5 and has risen up to 2.2
Impression
Acute on chronic kidney disease stage IIIb previously seen by [facility] wire stitcher but has since retired/baseline 1.6�1.8
Cardiomyopathy diastolic with a preserved EF
Gram-negative UTI
Chronic atrial fibrillation rate controlled
Mild hyponatremia/no signs of volume overload
Plan
stable renal function cr 1.6
s/p CV 12/25 , bradycardia meds adjusted by cardiology
BP stable, borderline orhtostatic vitals on 12/29, cont TEDs
abnormal TSH an FT4 -defer to primary
upon d/c follow Nephro with us
-
-
Date of Service: December 30, 2024
CC / HPI / ROS
-
Chief Complaint:
OBIE
History of Present Illness:
OBIE/Cr better at 1.6
Na normal
HR low
orthostatic BP on 12/29
Review of Systems:
no CP/SOB at rest
no dizziness on bed
reports hearmeds make her upset and dizzy
Labs
-
Labs:
WBC 9.4 10^3/uL (4.8-10.8) 12/30/24 06:55
RBC 4.03 10^6/uL (4.20-5.40) L 12/30/24 06:55
Hgb 11.9 g/dL (12.0-16.0) L 12/30/24 06:55
Hct 39.0 % (37.0-47.0) 12/30/24 06:55
Plt Count 92 10^3/uL (130-400) L 12/30/24 06:55
Sodium 138 mmol/L (135-145) 12/30/24 06:55
Potassium 4.9 mmol/L (3.5-5.1) 12/30/24 06:55
Chloride 108 mmol/L (98-107) H 12/30/24 06:55
Carbon Dioxide 25 mmol/L (22-30) 12/30/24 06:55
BUN 24 mg/dl (7-17) H 12/30/24 06:55
Creatinine 1.6 mg/dL (0.6-1.0) H 12/30/24 06:55
eGFR 31.61 12/30/24 06:55
Glucose 101 mg/dl (70-99) H 12/30/24 06:55
Calcium 8.5 mg/dl (8.4-10.2) 12/30/24 06:55
Albumin 3.3 g/dl (3.5-5.0) L 12/21/24 05:24
Physical Exam
-
Vital Signs:
Vital Signs
Temp Pulse Resp BP Pulse Ox
97.4 F 49 16 147/56 98
12/30/24 07:24 12/30/24 07:24 12/30/24 07:24 12/30/24 07:24 12/30/24 07:24
Cardiovascular:: Regular rate and rhythm
Respiratory:: Bilateral: CTA
Lung Excursion:: Normal
Abdomen:: Nontender and Soft
Extremity Edema:: None: Bilateral:
Garcia Catheter: No
[2024-12-30 11:42] LABS: Glucose - Point of Care 183 mg/dl (70-99)
[2024-12-30] MEDS: NOVOLOG FLEXPEN-LOW RESISTANCE 1 UNITS SC ×2 (12:32→17:08)
--- NOTE | 2024-12-30 14:56 | W.PN.HOSP.TC ---
Today's Communication/Plan
-
Continue current care
Assessment / Plan
Assessment / Plan
84F with CAD s/p PCI, PAF on Eliquis, CHF, DM, HTN, CKD 3, chronic back pain, DDD; p/w acute on chronic left lumbar pain.
A/P:
1. Persistent atrial fibrillation with RVR�symptomatic
s/p ablation
Cont Eliquis
s/p inpatient DCCV 12/25 given her symptoms
then had sinus bradycardia (HR improved from 40's to 50's)
Then Stopped Coreg, holding amiodarone (d/w breaker unit assembler Dr Alarcon and he rec to hold amiodarone)
Monitor HR closely, Card following.
Plan is possibly to resume amiodarone to prevent recurrence of A-fib after patient is seen in clinic.
will monitor for symptoms or orthostatic hypotension with ambulation
2. Left flank pain, much resolved, suspect due to MSK vs UTI
CT A/P shows LLL mild patchy parenchymal opacity, likely atelectasis, also GB wall thickening, moderate diffuse subcutaneous edema, slightly greater in left flank compared to right.
There do not appear to be any issues with the kidneys, spleen, or bowel, limited by noncontrast study.
Due to the possibility of acute cholecystitis, surgery was consulted, abdominal ultrasound and HIDA scan were performed, which did not show acute cholecystitis.
There are findings consistent with possible chronic cholecystitis and hepatic dysfunction.
No surgical plan.
Stopped heparin drip.
Resumed Eliquis.
Diet advanced to regular, tolerated well.
Discontinued IV morphine, also stopped oxycodone as pt felt opiate caused nausea.
Cont Tylenol and added lidocaine patch for pain control-
pain improved significantly with local patch per pt.
Patient reports she deals with the same left flank pain at home as well and uses Salonpas for it
3. Nausea, resolved
pt feels that nausea was due to opiate/oxycodone, opiate stopped, amiodarone could be contributing
IV Zofran PRN
4. Sepsis secondary to UTI, with OBIE�resolved
Urine culture on admit growing Klebsiella and E. coli, sensitive to ceftriaxone.
Repeat urine cultures no growth. BCx NGTD
Received ceftriaxone for 5 days (completed treatment), stopped further Abx
Discontinued Flagyl as HIDA negative for acute cholecystitis
5. OBIE on CKD stage 3
Proteinuria, 3+ albumin.
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 Diehl but he retired)
CT showed subcutaneous edema
SCr 2.2 on admission to [facility] 1.6 today- this may be the new baseline
treated UTI as above.
Trialed IVF, now capped.
Renal on board, outpatient follow-up with nephrology on discharge
6. CAD s/p PCI, with h/o HLD
cont statin
7. DM - on insulin at home
BG control is fair
In setting of nausea, decreased GLOVE PRINTER Lantus from 11 units to 5 units HS, and decrease GLOVE PRINTER aspart to 3 units AC to avoid hypoglycemia.
Continue with this dose for now
ISS coverage
8. Hypothyroidism - chronic
levothyroxine 75 mcg p.o. daily
9. History of TIA/CVA - no acute symptoms c/w stroke
On Eliquis and statin
10. Syncopal episode likely from Orthostatic hypotension
12/21 following using the commode and BM, suspect vasovagal, could also have component of orthostatic hypotension
orthostatic negative 12/21 but positive 12/22 with PT
Coreg, Imdur stopped, but BPs are elevated now,
per cardiology possible initiation of Imdur or amlodipine if BP remains elevated
Holding amiodarone for bradycardia
Cont trial of compression therapy with SRINIVAS wrap and abdominal binder
Informed RN to [facility] to monitor clinically, cont bed alarm, fall precaution etc.
DVT prophylaxis: Eliquis
CODE STATUS: Full code
Dispo: PT rec SNF
Anticipated Discharge: 24 - 48 hours
Subjective/Interval History
-
Date of Service: December 30, 2024
Feels good today
Objective Data
-
Labs:
Laboratory Results
12/30/24
06:55
WBC 9.4
Hgb 11.9 L
Hct 39.0
Plt Count 92 L
Sodium 138
Potassium 4.9
Chloride 108 H
Carbon Dioxide 25
BUN 24 H
Creatinine 1.6 H
Glucose 101 H
Calcium 8.5
Vital Signs:
Vital Signs
Temp Pulse Resp BP Pulse Ox
97.4 F 53 16 144/58 98
12/30/24 11:07 12/30/24 11:07 12/30/24 11:07 12/30/24 11:07 12/30/24 11:07
I&O
12/29/24 12/30/24 12/31/24
06:59 06:59 06:59
Intake Total 840 / 840 1320 / 1320
Balance 840 / 840 1320 / 1320
Review of Systems
-
History Source: Patient
All other systems: Reviewed and negative
Physical Exam
-
General: Well Developed, Well Nourished, No Apparent Distress, Comfortable and Conversant
HEENT: Normocephalic, Atraumatic and Moist Mucous Membranes
Respiratory: Clear to Auscultation
Cardiac: Regular Rhythm and S1/S2
GI: Soft, Nontender and Nondistended
Musculoskeletal: No Clubbing and No Cyanosis
Skin: Warm and Dry
Neuro: Awake, Alert and Oriented
Psych: Calm
Data Reviewed
-
Labs: Labs Reviewed by me
[2024-12-30 17:02] LABS: Glucose - Point of Care 175 mg/dl (70-99)
[2024-12-30] MEDS: IMDUR (EXTENDED RELEASE) 30 MG PO (18:05)
[2024-12-30] MEDS: REMOVE LIDOCAINE PATCH REMOVE ×4 (19:53→20:01)
[2024-12-30] MEDS: CRESTOR 10 MG PO (19:54)
[2024-12-30 21:15] LABS: Glucose - Point of Care 208 mg/dl (70-99)
[2024-12-30] MEDS: LANTUS 0.05 UNITS SC (21:33)
--- NOTE | 2024-12-31 00:37 | PTCARENOTE ---
Pt called c/o discomfort to LLE. Stated it was a 'throbbing' pain around ankle and in arch of foot, moving upward. Pulses were weak on palpation but have not changed since initial assessment. [place] wrap removed. PNEUMATIC TUBE FITTER informed. No new orders placed. Pt
states the leg feels 'better' w/o the [place] wrap. Will continue to monitor.
[2024-12-31 03:00] VITALS: BP 146/64
[2024-12-31] MEDS: SYNTHROID PO (05:39)
[2024-12-31 07:31] VITALS: BP 170/72
[2024-12-31 07:34] LABS: Hematocrit 38.9 % (37.0-47.0); Hemoglobin 12.0 g/dL (12.0-16.0); Mean Corp Hgb Conc. 30.8 g/dL (33.0-37.0); Mean Corpuscular Volume 99.0 fL (81.0-99.0); Platelet Count 88 10^3/uL (130-400); Red Cell Dist. Width 16.4 % (11.5-14.5)
[2024-12-31 07:53] LABS: Blood Urea Nitrogen 22 mg/dl (7-17); Calcium 8.8 mg/dl (8.4-10.2); Carbon Dioxide 29 mmol/L (22-30); Chloride 106 mmol/L (98-107); Estimated Creatinine Clearance 25 ml/min; Glucose 129 mg/dl (70-99); Potassium 5.0 mmol/L (3.5-5.1); Sodium 136 mmol/L (135-145); eGFR 31.61
[2024-12-31 08:09] LABS: Glucose - Point of Care 129 mg/dl (70-99)
[2024-12-31] MEDS: NOVOLOG FLEXPEN-LOW RESISTANCE SC (08:23)
[2024-12-31] MEDS: IMDUR (EXTENDED RELEASE) 30 MG PO (08:24)
[2024-12-31] MEDS: LOW STRENGTH ASPIRIN 81 MG PO (08:25)
[2024-12-31] MEDS: ELIQUIS 2.5 MG PO ×2 (08:25→19:42)
[2024-12-31] MEDS: NOVOLOG FLEXPEN 3 UNITS SC ×3 (08:26→17:03)
[2024-12-31] MEDS: LIDOCAINE 4% PATCH TOPICAL ×2 (08:34→08:35)
--- NOTE | 2024-12-31 10:06 | W.PN.HOSP.TC ---
Addendum entered and electronically signed by Juan Antonio Benítez MD 12/31/24 10:16:
11. Platelets from 92 - 88
This appears to be a chronic process - no obvious bleeding now.
Avoid heparin
Follow daily
Original Note:
Today's Communication/Plan
-
adding amlodipine to help with BP control.
Assessment / Plan
Assessment / Plan
84F with CAD s/p PCI, PAF on Eliquis, CHF, DM, HTN, CKD 3, chronic back pain, DDD; p/w acute on chronic left lumbar pain.
A/P:
1. Persistent atrial fibrillation with RVR�symptomatic - rate now in good control
s/p ablation
Cont Eliquis
s/p inpatient DCCV 12/25 given her symptoms
then had sinus bradycardia (HR improved from 40's to 50's)
Then Stopped Coreg, and are holding amiodarone (Dr Alarcon recommended to hold amiodarone)
Monitor HR closely,
Plan is possibly to resume amiodarone to prevent recurrence of A-fib after patient is seen in clinic.
will monitor for symptoms or orthostatic hypotension with ambulation today
If does well - d/c home tomorrow
2. Left flank pain, much resolved, suspect due to MSK vs UTI
CT A/P showed LLL mild patchy parenchymal opacity, likely atelectasis, also GB wall thickening,
moderate diffuse subcutaneous edema, slightly greater in left flank compared to right.
There do not appear to be any issues with the kidneys, spleen, or bowel, limited by noncontrast study.
Due to the possibility of acute cholecystitis, surgery was consulted, abdominal ultrasound and HIDA scan were performed, which did not show acute cholecystitis.
There are findings consistent with possible chronic cholecystitis and hepatic dysfunction.
No surgical plan.
Stopped heparin drip.
Resumed Eliquis.
Diet advanced to regular, tolerated well.
Discontinued IV morphine, also stopped oxycodone as pt felt opiate caused nausea.
Cont Tylenol and added lidocaine patch for pain control - lidocaine patch was very helpful
pain improved significantly with local patch per pt.
Patient reports she deals with the same left flank pain at home as well and uses Salonpas for it
3. Nausea, resolved
pt feels that nausea was due to opiate/oxycodone, opiate stopped, amiodarone could be contributing
Zofran PRN
4. Sepsis secondary to UTI, with OBIE�resolved
Urine culture on admit growing Klebsiella and E. coli, sensitive to ceftriaxone.
Repeat urine cultures no growth. BCx NGTD
Received ceftriaxone for 5 days (completed treatment), stopped further Abx
Discontinued Flagyl as HIDA negative for acute cholecystitis
CC: 50,000 CFU/ML Klebsiella pneumoniae
CC: 10,000 CFU/ML Escherichia coli
Organism 1 Klebsiella pneumoniae
Organism 2 Escherichia coli
K.PNEUMO E.COLI
M.I.C. RX M.I.C. RX
--------- --- --------- ---
Amoxicillin/Potas. Clavulanate <=8/4 S <=8/4 S
Ampicillin >16 R <=8 S
Ampicillin/Sulbactam <=4/2 S <=4/2 S
Aztreonam <=4 S <=4 S
Cefazolin <=2 S <=2 S
Ertapenem <=0.5 S <=0.5 S
Ciprofloxacin <=0.25 S <=0.25 S
Gentamicin <=2 S <=2 S
Meropenem <=1 S <=1 S
Nitrofurantoin-Urine Only 64 I <=32 S
Piperacillin/Tazobactam <=8 S <=8 S
Tetracycline <=4 S <=4 S
Tobramycin <=2 S <=2 S
Trimethoprim/Sulfamethoxazole <=2/38 S <=2/38 S
5. OBIE on CKD stage 3
Proteinuria, 3+ albumin.
Attempted to review old records to find cause but none available and pt doesn't know her keg washer (previously Dr. Diehl but he retired)
CT showed subcutaneous edema
SCr 2.2 on admission to [facility] 1.6 today- this may be the new baseline
treated UTI as above.
Trialed IVF, now capped.
Renal on board, outpatient follow-up with nephrology on discharge
6. CAD s/p PCI, with h/o HLD
cont statin
7. DM - on insulin at home
BG control is fair
In setting of nausea, decreased SLOOP CAPTAIN Lantus from 11 units to 5 units HS, and decrease SLOOP CAPTAIN aspart to 3 units AC to avoid hypoglycemia.
Continue with this dose for now
ISS coverage
8. Hypothyroidism - chronic, TSH 0.25
levothyroxine 75 mcg p.o. daily
Adjust dose as outpatient
9. History of TIA/CVA - no acute symptoms c/w stroke
On Eliquis and statin
10. Syncopal episode likely from Orthostatic hypotension
12/21 following using the commode and BM, suspect vasovagal, could also have component of orthostatic hypotension
orthostatic negative 12/21 but positive 12/22 with PT
Coreg, Imdur stopped, but BPs are elevated now, 170/72
per cardiology - add Imdur or amlodipine if BP remains elevated
Holding amiodarone for bradycardia
Will add amlodipine today
Cont trial of compression therapy with SRINIVAS wrap and abdominal binder
Informed RN to cont to monitor clinically, cont bed alarm, fall precaution etc.
DVT prophylaxis: Eliquis
CODE STATUS: Full code
Dispo: PT rec SNF
Anticipated Discharge: 24 - 48 hours
Subjective/Interval History
-
Date of Service: December 31, 2024
No new symptoms
Objective Data
-
Labs:
Laboratory Results
12/31/24
07:10
WBC 11.2 H
Hgb 12.0
Hct 38.9
Plt Count 88 L
Sodium 136
Potassium 5.0
Chloride 106
Carbon Dioxide 29
BUN 22 H
Creatinine 1.6 H
Glucose 129 H
Calcium 8.8
Vital Signs:
Vital Signs
Temp Pulse Resp BP Pulse Ox
99.2 F 54 17 170/72 97
12/31/24 07:31 12/31/24 07:31 12/31/24 07:31 12/31/24 07:31 12/31/24 07:31
I&O
12/30/24 12/31/24 01/01/25
06:59 06:59 06:59
Intake Total 1320 / 1320 720 / 720
Balance 1320 / 1320 720 / 720
Review of Systems
-
History Source: Patient
All other systems: Reviewed and negative
Physical Exam
-
General: Well Developed, Well Nourished, No Apparent Distress, Comfortable and Conversant
HEENT: Normocephalic, Atraumatic, Moist Mucous Membranes, Nose Appears Normal and Ears Appear Normal
Respiratory: Clear to Auscultation
Cardiac: Regular Rhythm and S1/S2
GI: Soft, Nontender and Nondistended
Musculoskeletal: No Clubbing, No Cyanosis and No Edema
Skin: Warm and Dry
Neuro: Awake, Alert, Oriented and AO x 3
Psych: Calm
Data Reviewed
-
Labs: Labs Reviewed by me
[2024-12-31 11:07] VITALS: BP 149/53
[2024-12-31 12:42] LABS: Glucose - Point of Care 165 mg/dl (70-99)
[2024-12-31] MEDS: NOVOLOG FLEXPEN-LOW RESISTANCE 1 UNITS SC ×2 (12:48→17:02)
[2024-12-31] MEDS: NORVASC 2.5 MG PO ×2 (12:48→19:42)
--- NOTE | 2024-12-31 14:12 | W.PN.CARDCBS ---
Today's Communication / Plan
-
Monitor blood pressure/heart rate trends
Discharge planning
Impression / Plan
-
Primary senior digital designer is Dr. Cam Read
Primary care provider is Dr. Susie Jarquin PA-C
Assessment:
L flank pain, suspected musculoskeletal vs UTI
Concern for acute cholecystitis with negative HIDA
Paroxysmal to persistent atrial fibrillation
s/p PVI for AF 03/29/24
Developed symptomatic atrial fibrillation in November 2024 and was planned for outpatient CV but ended up admitted as noted above
s/p successful CV 12/25/2024
Chronic HF improved EF
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
Orthostatic hypotension
CAD
s/p 3.0 mm Xience STEFAN to the proximal to mid LAD and PTCA alone of diagonal�1 and OM�1 02/18/2008
Subacute RECEIVING TANK OPERATOR in the midportion of the RCA with collateral flow and patent previously placed proximal to mid LAD stent cardiac cath 12/19/2021
Chronic kidney disease, stage IIIb
Diabetes mellitus type 2
CVA in 2013
Hypertension
Dyslipidemia
Echo 04/01/2022: EF 55%, mild cLVH, stage II diastolic dysfunction, mild MAC, mild to moderate MR, mild AI
Echo 03/17/2024: EF 35%, moderate tricuspid regurgitation and elevated pulmonary artery pressures estimated at 55-60 mmHg.
Echo 03/30/2024: Urgent bedside study in the setting of rapid response, EF 40 to 45%, no evidence of pericardial effusion
Echo 06/04/2024: LVEF improved/normalized to 55 to 60%. There is possible basal septal akinesis and basal inferior hypokinesis.
Plan:
84-year-old female presented with left flank pain with initial concern for acute cholecystitis.
-HIDA scan negative
-General surgery consulted but determined surgery was not indicated.
-Repeat urine cultures no growth. BCx NGTD
-Urine culture on admit growing Klebsiella and E. coli, sensitive to ceftriaxone. Received ceftriaxone for 5 days (completed treatment)
Persistent atrial fibrillation status post DC cardioversion 12/25/2024 to sinus bradycardia
-Remains in sinus rhythm with heart rate improved following discontinuation of carvedilol and amiodarone.
-Would not resume Coreg or amiodarone at time of discharge.
-No urgent indication for for pacemaker but likely will benefit given tachybradycardia syndrome.
-Patient has an appointment with her photographic spotter January 04 and they can discuss moving ahead with pacemaker implant at that time.
- Continue Eliquis anticoagulation
History of hypothyroidism however was found to be hyperthyroidism during admission in August 2024.
-TSH elevated 5.21 with elevated free T4 2.51- Defer to hospitalist
Syncope with orthostatic hypotension and bradycardia
- Blood pressures improved
- LISA stockings
- Would continue to hold Coreg and amiodarone and monitor heart rate trends.
- Imdur 30 mg daily resumed and amlodipine added.
Chronic renal insufficiency, creatinine improved to 1.6. Nephrology consulted with plans for follow-up as an outpatient.
PT/OT- Recommending discharged to SNF
D/C planning-Anticipate discharge 01/01/2025
Progress Note - Assistant Front Office Manager
Subjective
Date of Service: December 31, 2024
Patient was seen and examined sitting out of bed to chair offering no complaints. She is still unsure if she is going home with PT versus long-term facility. She denies dizziness/hide lightheadedness. No chest pain or pressure.
Objective
Labs:
12/31/24 07:10
12/31/24 07:10
Labs
Hgb 12.0 g/dL (12.0-16.0) 12/31/24 07:10
Hct 38.9 % (37.0-47.0) 12/31/24 07:10
Plt Count 88 10^3/uL (130-400) L 12/31/24 07:10
APTT 122.6 Sec (23.4-35.0) H 12/18/24 19:27
Sodium 136 mmol/L (135-145) 12/31/24 07:10
Potassium 5.0 mmol/L (3.5-5.1) 12/31/24 07:10
BUN 22 mg/dl (7-17) H 12/31/24 07:10
Creatinine 1.6 mg/dL (0.6-1.0) H 12/31/24 07:10
Glucose 129 mg/dl (70-99) H 12/31/24 07:10
Vital Signs and I&O:
Vital Signs
Temp Pulse Resp BP Pulse Ox
98.0 F 54 18 149/53 96
12/31/24 11:07 12/31/24 12:48 12/31/24 11:07 12/31/24 12:48 12/31/24 11:07
Vital Signs
Temp Pulse Resp BP Pulse Ox
98.0 F 54 18 149/53 96
12/31/24 11:07 12/31/24 12:48 12/31/24 11:07 12/31/24 12:48 12/31/24 11:07
Intake & Output
12/29/24 12/30/24 12/31/24 01/01/25
06:59 06:59 06:59 06:59
Intake Total 840 / 840 1320 / 1320 720 / 720
Balance 840 / 840 1320 / 1320 720 / 720
Physical Exam
Physical Exam
GEN: No distress, awake, Ox3, sitting in bed
LUNGS: CTA, no wheezes/rales
CV: Reg, S1/S2, no murmur, rub or gallop
ABD: soft, BS+, NT/ND
EXT: No edema
NEURO: Gross non-focal
[2024-12-31 15:12] VITALS: BP 141/62
[2024-12-31 16:59] LABS: Glucose - Point of Care 185 mg/dl (70-99)
--- NOTE | 2024-12-31 16:59 | W.PN.NEPH.PH ---
Today's Communication / Plan
-
see plan
Assessment/Plan
-
84-year-old female with past medical history of coronary artery disease s/p PCI, paroxysmal atrial fibrillation on Eliquis, cardiomyopathy with recovered EF at 55% as of May 2024 though she does have stage III diastolic dysfunction, IDDM,
hypertension, CKD stage 3, chronic back pain secondary to degenerative disc disease; p/w acute on chronic left lumbar pain.
She has been ruled out for cholecystitis based on imaging negative HIDA scan.. She has history of atrial fibrillation status post ablation. Heart rate is relatively controlled she did have a ventricular response of around 129 she is being seen by
cardiology. She has previously been scheduled for a cardioversion which has been rescheduled.
Her blood pressures have been stable and no episodes of hypotension.
Appetite has been poor for about a week. She is starting to eat more she had an episode of diarrhea today
Currently being treated for urinary tract infection.
Urine cultures grew Klebsiella and E. coli. Blood cultures negative.
She has a baseline creatinine of 1.5 and has risen up to 2.2
Impression
Acute on chronic kidney disease stage IIIb previously seen by [place] software engineering supervisor but has since retired/baseline 1.6�1.8
Cardiomyopathy diastolic with a preserved EF
Gram-negative UTI
Chronic atrial fibrillation rate controlled
Mild hyponatremia/no signs of volume overload
Plan
stable renal function cr 1.6
s/p CV 12/25 , bradycardia meds adjusted by cardiology
BP stable Amlodpidne added per primary, monitor ortho vitals
was borderline orhtostatic vitals on 12/29, cont TEDs
monitor sacral and thigh edema suspect from TEDs
abnormal TSH an FT4 -defer to primary
upon d/c follow Nephro with us
-
-
Date of Service: December 31, 2024
CC / HPI / ROS
-
Chief Complaint:
OBIE
History of Present Illness:
OBIE/Cr better at 1.6
Na normal
HR low
orthostatic BP on 12/29
Review of Systems:
no CP/SOB at rest
no dizziness in chair
Labs
-
Labs:
WBC 11.2 10^3/uL (4.8-10.8) H 12/31/24 07:10
RBC 3.93 10^6/uL (4.20-5.40) L 12/31/24 07:10
Hgb 12.0 g/dL (12.0-16.0) 12/31/24 07:10
Hct 38.9 % (37.0-47.0) 12/31/24 07:10
Plt Count 88 10^3/uL (130-400) L 12/31/24 07:10
Sodium 136 mmol/L (135-145) 12/31/24 07:10
Potassium 5.0 mmol/L (3.5-5.1) 12/31/24 07:10
Chloride 106 mmol/L (98-107) 12/31/24 07:10
Carbon Dioxide 29 mmol/L (22-30) 12/31/24 07:10
BUN 22 mg/dl (7-17) H 12/31/24 07:10
Creatinine 1.6 mg/dL (0.6-1.0) H 12/31/24 07:10
eGFR 31.61 12/31/24 07:10
Glucose 129 mg/dl (70-99) H 12/31/24 07:10
Calcium 8.8 mg/dl (8.4-10.2) 12/31/24 07:10
Albumin 3.3 g/dl (3.5-5.0) L 12/21/24 05:24
Physical Exam
-
Vital Signs:
Vital Signs
Temp Pulse Resp BP Pulse Ox
98.1 F 55 18 141/62 97
12/31/24 15:12 12/31/24 15:12 12/31/24 15:12 12/31/24 15:12 12/31/24 15:12
Cardiovascular:: Regular rate and rhythm
Respiratory:: Bilateral: CTA
Lung Excursion:: Normal
Abdomen:: Nontender and Soft
Extremity Edema:: None: Bilateral:
Garcia Catheter: No
Other Findings::
has thigh and sacral edema
[2024-12-31 19:00] VITALS: BP 149/64
[2024-12-31] MEDS: REMOVE LIDOCAINE PATCH REMOVE ×2 (19:38)
[2024-12-31] MEDS: CRESTOR 10 MG PO (19:42)
[2024-12-31] MEDS: TYLENOL 1000 MG PO (19:56)
[2024-12-31 21:24] LABS: Glucose - Point of Care 225 mg/dl (70-99)
[2024-12-31] MEDS: LANTUS 0.05 UNITS SC (21:31)
[2024-12-31 23:00] VITALS: BP 137/60
[2025-01-01 03:00] VITALS: BP 141/59
[2025-01-01] MEDS: SYNTHROID 75 MCG PO (05:15)
[2025-01-01 06:49] LABS: Hematocrit 36.9 % (37.0-47.0); Hemoglobin 11.3 g/dL (12.0-16.0); Mean Corp Hgb Conc. 30.6 g/dL (33.0-37.0); Mean Corpuscular Volume 98.1 fL (81.0-99.0); Platelet Count 79 10^3/uL (130-400); Red Cell Dist. Width 16.4 % (11.5-14.5)
[2025-01-01 07:20] LABS: Glucose - Point of Care 160 mg/dl (70-99)
[2025-01-01 07:21] VITALS: BP 152/57
[2025-01-01 07:30] LABS: Blood Urea Nitrogen 20 mg/dl (7-17); Calcium 8.6 mg/dl (8.4-10.2); Carbon Dioxide 29 mmol/L (22-30); Chloride 106 mmol/L (98-107); Estimated Creatinine Clearance 27 ml/min; Glucose 155 mg/dl (70-99); Potassium 4.8 mmol/L (3.5-5.1); Sodium 137 mmol/L (135-145); eGFR 34.15
[2025-01-01] MEDS: IMDUR (EXTENDED RELEASE) 30 MG PO (08:39)
[2025-01-01] MEDS: NORVASC 2.5 MG PO (08:39)
[2025-01-01] MEDS: LOW STRENGTH ASPIRIN 81 MG PO (08:39)
[2025-01-01] MEDS: ELIQUIS 2.5 MG PO (08:39)
[2025-01-01] MEDS: NOVOLOG FLEXPEN 3 UNITS SC ×2 (08:41→12:26)
[2025-01-01] MEDS: NOVOLOG FLEXPEN-LOW RESISTANCE 1 UNITS SC ×2 (08:41→12:27)
[2025-01-01] MEDS: TYLENOL 1000 MG PO (08:45)
[2025-01-01] MEDS: LIDOCAINE 4% PATCH 1 PATCH TOPICAL ×2 (08:46)
[2025-01-01 09:29] VITALS: BMI 25.2
--- NOTE | 2025-01-01 10:04 | CM ---
Addendum entered by Neisha Galeano 01/01/25 11:56:
3:30pm transport set-Courtney updated
Addendum entered by Neisha Galeano 01/01/25 10:55:
spoke with Courtney - bed available at [facility] today
will need covid test
tt hospitalist - stable for dc
IMM explained & signed. In chart
SPOKE WITH dtr Nallely - agreeable, discussed wheelchair van, cost & is agreeable
PLAN: [facility] SN[facility] TODAY
report #: [id number]
fax #: [phone]
wc transport form on chart, COURTNEY request 3pm transport
Original Note:
CM spoke with daughter Nallely
requested [facility] referrals be placed
referrals entered
PLAN: SNF, pending bed availability when stable
--- NOTE | 2025-01-01 10:46 | W.PN.CARDCBS ---
Addendum entered and electronically signed by Cam Read MD 01/01/25 11:05:
I saw and examined the patient.
The MONOTYPE CASTER or PA's note was reviewed and I agree with the note.
Comment: General: Well developed, well nourished in NAD.
Neck: Supple, no JVD, HJR, carotids +2 B/L, no bruits bilaterally.
Heart: Non displaced PMI, RRR, no murmurs, No S3, S4, no rubs.
Lungs: Scattered rhonchi
Extremities: No clubbing, cyanosis or edema bilaterally.
Neuro: Grossly nonfocal, awake, alert and oriented x3.
She remains bradycardic and in sinus rhythm. Appears to be asymptomatic. Agree with rehab if patient will agree. Discussed with primary service. Stable cardiology status. Will sign off, call with questions.
Original Note:
Today's Communication / Plan
-
Continue off amiodarone and Coreg due to bradycardia
Continue amlodipine for blood pressure control
Anticipate discharge to rehab today
Outpatient cardiology follow-up has been arranged
Impression / Plan
-
Primary analytical scientist is Dr. Cam Read
Primary care provider is Dr. Susie Jarquin PA-C
Assessment:
Presented 12/17/2024 with acute on chronic left lumbar pain
L flank pain, suspected musculoskeletal vs UTI
Concern for acute cholecystitis with negative HIDA
Paroxysmal to persistent atrial fibrillation
s/p PVI for AF 03/29/24
Developed symptomatic atrial fibrillation in November 2024 and was planned for outpatient CV but ended up admitted as noted above
s/p successful CV 12/25/2024
Chronic HF improved EF
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
Orthostatic hypotension
CAD
s/p 3.0 mm Xience STEFAN to the proximal to mid LAD and PTCA alone of diagonal�1 and OM�1 02/18/2008
Subacute DEHYDRATOR TENDER in the midportion of the RCA with collateral flow and patent previously placed proximal to mid LAD stent cardiac cath 12/19/2021
Chronic kidney disease, stage IIIb
Diabetes mellitus type 2
CVA in 2013
Hypertension
Dyslipidemia
Echo 04/01/2022: EF 55%, mild cLVH, stage II diastolic dysfunction, mild MAC, mild to moderate MR, mild AI
Echo 03/17/2024: EF 35%, moderate tricuspid regurgitation and elevated pulmonary artery pressures estimated at 55-60 mmHg.
Echo 03/30/2024: Urgent bedside study in the setting of rapid response, EF 40 to 45%, no evidence of pericardial effusion
Echo 06/04/2024: LVEF improved/normalized to 55 to 60%. There is possible basal septal akinesis and basal inferior hypokinesis.
Plan:
84-year-old female presented with left flank pain with initial concern for acute cholecystitis.
-HIDA scan negative
-General surgery consulted but determined surgery was not indicated.
-Repeat urine cultures no growth. BCx negative on final report
-Urine culture on admit growing Klebsiella and E. coli, sensitive to ceftriaxone. Received ceftriaxone for 5 days (completed treatment)
Persistent atrial fibrillation status post DC cardioversion 12/25/2024 to sinus bradycardia
-Remains in sinus bradycardia with heart rate improved following discontinuation of carvedilol and amiodarone.
-Would not resume Coreg or amiodarone at time of discharge.
-No urgent indication for for pacemaker but may benefit intermediate accountant given tachybradycardia syndrome.
-Patient has a cardiology appointment January 04 and they can discuss moving ahead with pacemaker implant at that time.
- Continue Eliquis anticoagulation
History of hypothyroidism however was found to be hyperthyroidism during admission in August 2024.
-TSH elevated 5.21 with elevated free T4 2.51- Defer to hospitalist
Syncope with orthostatic hypotension and bradycardia
- Blood pressures improved
- LISA stockings
- Would continue to hold Coreg and amiodarone and monitor heart rate trends.
- Imdur 30 mg daily resumed and amlodipine added 12/31/24.
Chronic renal insufficiency, creatinine improved to 1.5, peak 2.3. Nephrology consulted with plans for follow-up as an outpatient.
PT/OT- Recommending discharged to SNF
D/C planning-Anticipate discharge 01/01/2025
Progress Note - Hospital Liaison
Subjective
Date of Service: January 01, 2025
Objective
Labs:
01/01/25 06:10
01/01/25 06:10
Labs
Hgb 11.3 g/dL (12.0-16.0) L 01/01/25 06:10
Hct 36.9 % (37.0-47.0) L 01/01/25 06:10
Plt Count 79 10^3/uL (130-400) L 01/01/25 06:10
APTT 122.6 Sec (23.4-35.0) H 12/18/24 19:27
Sodium 137 mmol/L (135-145) 01/01/25 06:10
Potassium 4.8 mmol/L (3.5-5.1) 01/01/25 06:10
BUN 20 mg/dl (7-17) H 01/01/25 06:10
Creatinine 1.5 mg/dL (0.6-1.0) H 01/01/25 06:10
Glucose 155 mg/dl (70-99) H 01/01/25 06:10
Vital Signs and I&O:
Vital Signs
Temp Pulse Resp BP Pulse Ox
98.0 F 52 17 152/57 97
01/01/25 07:21 01/01/25 07:21 01/01/25 07:21 01/01/25 08:39 01/01/25 07:21
Vital Signs
Temp Pulse Resp BP Pulse Ox
98.0 F 52 17 152/57 97
01/01/25 07:21 01/01/25 07:21 01/01/25 07:21 01/01/25 08:39 01/01/25 07:21
Intake & Output
12/30/24 12/31/24 01/01/25 01/02/25
06:59 06:59 06:59 06:59
Intake Total 1320 / 1320 720 / 720 1020 / 1020
Balance 1320 / 1320 720 / 720 1020 / 1020
Physical Exam
Physical Exam
GEN: No distress, awake, Ox3, sitting in chair
HEENT: supple, anicteric, mmm
LUNGS: CTA, no wheezes/rales
CV: Reg, S1/S2, no murmur, rub or gallop
ABD: soft, BS+, NT/ND
EXT: No edema, clubbing or cyanosis; Lisa compression stockings intact
NEURO: Gross non-focal
SKIN: No rash, warm, dry, pink
[2025-01-01 11:03] VITALS: BP 159/64
[2025-01-01 11:51] LABS: COVID-19 Antigen Negative (Negative)
[2025-01-01 12:01] LABS: Glucose - Point of Care 169 mg/dl (70-99)
--- NOTE | 2025-01-01 12:49 | W.PN.NEPH.PH ---
Today's Communication / Plan
-
No changes creatinine stable at baseline
Assessment/Plan
-
84-year-old female with past medical history of coronary artery disease s/p PCI, paroxysmal atrial fibrillation on Eliquis, cardiomyopathy with recovered EF at 55% as of May 2024 though she does have stage III diastolic dysfunction, IDDM,
hypertension, CKD stage 3, chronic back pain secondary to degenerative disc disease; p/w acute on chronic left lumbar pain.
She has been ruled out for cholecystitis based on imaging negative HIDA scan.. She has history of atrial fibrillation status post ablation. Heart rate is relatively controlled she did have a ventricular response of around 129 she is being seen by
cardiology. She has previously been scheduled for a cardioversion which has been rescheduled.
Her blood pressures have been stable and no episodes of hypotension.
Appetite has been poor for about a week. She is starting to eat more she had an episode of diarrhea today
Currently being treated for urinary tract infection.
Urine cultures grew Klebsiella and E. coli. Blood cultures negative.
She has a baseline creatinine of 1.5 and has risen up to 2.2
Impression
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
Cardiomyopathy diastolic with a preserved EF
Gram-negative UTI
Chronic atrial fibrillation rate controlled
Mild hyponatremia/no signs of volume overload
Plan
stable renal function cr 1.5
s/p CV 12/25 , bradycardia meds adjusted by cardiology
BP stable Amlodpidne added per primary, monitor ortho vitals
was borderline orthostatic vitals on 12/29, cont TEDs
monitor sacral and thigh edema suspect from TEDs
abnormal TSH an FT4 -defer to primary
upon d/c follow Nephro with us
-
-
Date of Service: January 01, 2025
CC / HPI / ROS
-
Chief Complaint:
OBIE
History of Present Illness:
OBIE/Cr better at 1.5
Na normal
HR low
orthostatic BP on 12/29
Review of Systems:
no CP/SOB at rest
no dizziness in chair
Labs
-
Labs:
WBC 8.8 10^3/uL (4.8-10.8) 01/01/25 06:10
RBC 3.76 10^6/uL (4.20-5.40) L 01/01/25 06:10
Hgb 11.3 g/dL (12.0-16.0) L 01/01/25 06:10
Hct 36.9 % (37.0-47.0) L 01/01/25 06:10
Plt Count 79 10^3/uL (130-400) L 01/01/25 06:10
Sodium 137 mmol/L (135-145) 01/01/25 06:10
Potassium 4.8 mmol/L (3.5-5.1) 01/01/25 06:10
Chloride 106 mmol/L (98-107) 01/01/25 06:10
Carbon Dioxide 29 mmol/L (22-30) 01/01/25 06:10
BUN 20 mg/dl (7-17) H 01/01/25 06:10
Creatinine 1.5 mg/dL (0.6-1.0) H 01/01/25 06:10
eGFR 34.15 01/01/25 06:10
Glucose 155 mg/dl (70-99) H 01/01/25 06:10
Calcium 8.6 mg/dl (8.4-10.2) 01/01/25 06:10
Albumin 3.3 g/dl (3.5-5.0) L 12/21/24 05:24
Physical Exam
-
Vital Signs:
Vital Signs
Temp Pulse Resp BP Pulse Ox
97.4 F 50 17 159/64 97
01/01/25 11:03 01/01/25 11:03 01/01/25 11:03 01/01/25 11:03 01/01/25 11:03
Cardiovascular:: Regular rate and rhythm
Respiratory:: Bilateral: CTA
Lung Excursion:: Normal
Abdomen:: Nontender and Soft
Extremity Edema:: None: Bilateral:
Garcia Catheter: No
Other Findings::
has thigh and sacral edema
[2025-01-01 15:23] VITALS: BP 165/58
== END 2025-01-01 15:22 | DRG 872 ==
LOC: 3 WEST ACU 18:31
PROVIDERS: Internal Medicine Cardiovascular Disease; Physician Assistant Medical; ADMITTING PHYSICIAN Internal Medicine; ATTENDING PHYSICIAN Internal Medicine; CONSULT PHYSICIAN Internal Medicine Cardiovascular Disease; CONSULT PHYSICIAN Internal Medicine Nephrology; EMERGENCY PHYSICIAN Emergency Medicine; FAMILY PHYSICIAN Family Medicine; OTHER PHYSICIAN Surgery
PROC: 5A2204Z Restoration of Cardiac Rhythm, Single (ICD-10-PCS; 2024-12-25)
DX: A41.51 Sepsis due to Escherichia coli [E. coli] (principal); I13.0 Hypertensive heart and chronic kidney disease with heart failure and stage 1 through stage 4 chronic kidney disease, or unspecified chronic kidney disease; I50.22 Chronic systolic (congestive) heart failure; I48.19 Other persistent atrial fibrillation; N39.0 Urinary tract infection, site not specified; N17.9 Acute kidney failure, unspecified; E87.1 Hypo-osmolality and hyponatremia; J98.11 Atelectasis; R65.20 Severe sepsis without septic shock; I25.10 Atherosclerotic heart disease of native coronary artery without angina pectoris; E11.22 Type 2 diabetes mellitus with diabetic chronic kidney disease; G89.29 Other chronic pain; E78.00 Pure hypercholesterolemia, unspecified; I25.5 Ischemic cardiomyopathy; E03.9 Hypothyroidism, unspecified; I95.1 Orthostatic hypotension; M51.369 Other intervertebral disc degeneration, lumbar region without mention of lumbar back pain or lower extremity pain; N18.32 Chronic kidney disease, stage 3b; I07.1 Rheumatic tricuspid insufficiency; K81.1 Chronic cholecystitis; I49.5 Sick sinus syndrome; R11.0 Nausea; R19.7 Diarrhea, unspecified; B96.1 Klebsiella pneumoniae [K. pneumoniae] as the cause of diseases classified elsewhere; B96.20 Unspecified Escherichia coli [E. coli] as the cause of diseases classified elsewhere; Z79.01 Long term (current) use of anticoagulants; Z63.6 Dependent relative needing care at home; Z82.49 Family history of ischemic heart disease and other diseases of the circulatory system; Z79.890 Hormone replacement therapy; Z79.4 Long term (current) use of insulin; Z79.82 Long term (current) use of aspirin; Z95.5 Presence of coronary angioplasty implant and graft; Z88.8 Allergy status to other drugs, medicaments and biological substances; Z86.73 Personal history of transient ischemic attack (TIA), and cerebral infarction without residual deficits; Z79.899 Other long term (current) drug therapy; Z11.52 Encounter for screening for COVID-19
CPT/HCPCS: 71046; 74176; 76705; 78226; 80048; 80053; 81003; 81015; 82248; 82962; 83690; 83735; 84439; 84443; 85025; 85027; 85730; 87040; 87077; 87086; 87186; 87811; 92960; 93005; 96374; 96375; 97116; 97162; 97167; 97530; 97535; 99285; A9537

== ENCOUNTER 2025-01-15 20:56 | Inpatient (IN) | payer MEDICARE, BC, SELFPAY ==
[2025-01-15 17:23] VITALS: BP 156/72
[2025-01-15 17:43] LABS: Hematocrit 35.1 % (37.0-47.0); Hemoglobin 11.5 g/dL (12.0-16.0); Mean Corp Hgb Conc. 32.8 g/dL (33.0-37.0); Mean Corpuscular Volume 95.1 fL (81.0-99.0); Nucleated Red Blood Cells % 0 %; Platelet Count 166 10^3/uL (130-400); Red Cell Dist. Width 16.7 % (11.5-14.5)
[2025-01-15 17:49] VITALS: BMI 24.4
[2025-01-15 17:56] VITALS: BP 166/68
[2025-01-15 17:59] LABS: Urine Character Clear (Clear)
[2025-01-15 18:00] VITALS: BP 162/69
[2025-01-15 18:13] LABS: ALT (SGPT) 22 U/L (0-35); AST (SGOT) 26 U/L (14-36); Albumin 4.5 g/dl (3.5-5.0); Alkaline Phosphatase 114 U/L (38-126); Blood Urea Nitrogen 27 mg/dl (7-17); Calcium 9.4 mg/dl (8.4-10.2); Carbon Dioxide 24 mmol/L (22-30); Chloride 105 mmol/L (98-107); Estimated Creatinine Clearance 25 ml/min; Glucose 114 mg/dl (70-99); Potassium 4.0 mmol/L (3.5-5.1); Sodium 136 mmol/L (135-145); Total Protein 7.4 g/dl (6.3-8.2); eGFR 31.61
[2025-01-15 18:13] LABS: Urine Red Blood Cell 0-2 /HPF (0-2); Urine Squamous Cell 0-2 /LPF (Few); Urine White Cell 0-2 /HPF (0-5)
[2025-01-15] MEDS: NORCO 5/325 1 TABLET PO (18:48)
--- NOTE | 2025-01-15 19:43 | ED.GENMED ---
History of Present Illness
General
Chief Complaint: Flank Pain
Source: patient
Exam Limitations: none
Time Seen by Provider: 01/15/25 18:06
Nursing documentation reviewed up to this point in time: agreed with
History of Present Illness
History of Present Illness:
see MDM
Past History
Past History
ED Past Medical History: Arrthythmia, CAD, HTN, Hypercholesterolemia, NIDDM and Hypothyroidism
ED Past Surgical History: Cardiac (Cath LAD stent)
Social History
Tobacco: Non-smoker
Alcohol: None
Drug: None
Personal:
Living: with family
Employment: Retired
Family History
Family History: CAD (MOM-IN age 50)
Phy Exam
Physical Exam
Physical Exam:
see MDM
Course
Orders/Labs/Results
Orders:
Orders
01/15/25 Dinner
Cholesterol Lowering
At Your Request: Limited Participation
Cholesterol Lowering: Sodium, 2 Gram
01/15/25 17:34
Complete Blood Count/With Diff Urgent
Comprehensive Metabolic Panel Urgent
LDH Urgent
Comment: ADD ON
01/15/25 17:35
Lactic Acid Urgent
01/15/25 17:51
Urine Microscopic Reflex Cult Urgent
Urine Reflex Culture from UA [Urinalysis Reflex To Culture] Urgent
Date Specimen was Collected: 01/15/25
Time Specimen was Collected: 17:26
01/15/25 18:39
CT Abd/pel Without Iv Or Oral Urgent
Comment:
Reason For Exam: L back pain, h/o kidney injury
Hydrocodone 5/APAP 325 [[place] 5/325] 1 tablet PO NOW STA
CR Chest - 2 Views Urgent
Comment:
Reason For Exam: L back pain, h/o pleural effusion, edema
01/15/25 18:55
NT-proBNP Urgent
01/15/25 19:47
Furosemide [Lasix] 40 mg IV NOW STA
01/15/25 20:16
Admit/Transfer Patient As Directed
Co-Sign Provider:
Level of Care: Inpatient admission
Assign to:: Telemetry
Physician / Group: chelsea
Diagnosis: chf, back pain
Reason for Telemetry: Pulmonary Edema
Date to Stop Telemetry: 01/18/25
Time to Stop Telemetry: 11:00
Reason for Hospitalization: chf
Expected length of stay greater than two midnights?: Yes
ELOS- Estimated Length of Stay in days: 2
I certify the patient meets the requirements for IP care: Yes
Code Status As Directed
Resuscitation Status: Full Code
PRN Pain Medication Management As Directed
May give lesser potent ordered pain med per pt: Yes
preference::
Protocol:: Medication orders for pain may be administered in a
manner that supports deferring to patient preference
when the pt is:
- Requesting an ordered lesser potent pain medication.
Least to most potent pain medications are defined
as: acetaminophen < NSAID < tramadol < opioids
(morphine, oxycodone, hydromorphone).
- Requesting a lesser dose of the same medication IF
ORDERED.
- Requesting a less intrusive route of administration
if both routes are prescribed by the provider (PO <
IV).
01/15/25 22:34
Acetaminophen [Tylenol] 650 mg PO Q6HPRN PRN mild pain
Dextrose 50%-Water [Dextrose 50% Syringe] 12.5 grams IV [id number] PRN
Glucagon [GlucaGen] 1 mg IM PRN PRN
Oxycodone [Roxicodone] 5 mg PO Q4HPRN PRN
Rosuvastatin Calcium [Crestor] 10 mg PO HS
insulin glargine [Lantus Solostar U-100 Insulin] 11 unit SC HS
01/15/25 22:34
Activity As Directed
Activity Level: As Tolerated
Bedside Glucose Monitoring As Directed
Frequency: AC&HS
Additional Instructions:: Change to q6h if pt on TPN, tube feeding or not eating
I/O [Intake/ Output] As Directed
Frequency: q12h
Sequential Compression Device [Pneumatic Compression Sleeves] As Directed
Type: Knee high
Vital Signs As Directed
Frequency: Per unit guidelines
Weight As Directed
Frequency: Daily
DX Deep Vein Thrombosis Video Routine
01/16/25 06:00
Complete Blood Count/With Diff IN AM
Comprehensive Metabolic Panel IN AM
Glycohemoglobin (HgbA1c) IN AM
Levothyroxine [Synthroid] 75 mcg PO DAILY@0600
01/16/25 07:30
Insulin Aspart Corrective Low [Novolog Flexpen-Low Resistance] See Protocol SC AC
Insulin Aspart Pen [Novolog Flexpen] 5 units SC AC
01/16/25 08:00
Amlodipine [Norvasc] 2.5 mg PO BID
Apixaban [Eliquis] 2.5 mg PO BID
Ascorbic Acid [Vitamin C] 250 mg PO DAILY
Aspirin Chewable [Low Strength Aspirin] 81 mg PO DAILY
Cyanocobalamin [Vitamin B-12] 1,000 mcg PO DAILY
Furosemide [Lasix] 40 mg IV DAILY
ISOSORBIDE MONOnitrate ER [Imdur (Extended Release)] 30 mg PO DAILY
Lidocaine [Lidocaine 4% Patch] 2 patch TOPICAL DAILYPRN PRN lower back
Apply Lidocaine patch(s) to:: lower back
01/17/25 08:00
Cholecalciferol (Vitamin D3) [VITAMIN D3 (cholecalciferol)] 25 mcg PO Q48H
01/18/25 11:00
DC Protocol for Telemetry ONCE
Abnormal Lab Results
01/15/25 01/15/25
17:34 17:51
RBC 3.69 L 10^6/uL
(4.20-5.40)
Hgb 11.5 L g/dL
(12.0-16.0)
Hct 35.1 L %
(37.0-47.0)
MCH 31.2 H pg
(27.0-31.0)
MCHC 32.8 L g/dL
(33.0-37.0)
RDW 16.7 H %
(11.5-14.5)
MPV 10.7 H fL
(7.4-10.4)
Absolute Lymphs (auto) 4.0 H 10^3/uL
(1.2-3.4)
Absolute Monos (auto) 0.7 H 10^3/uL
(0.1-0.6)
BUN 27 H mg/dl
(7-17)
Creatinine 1.6 H mg/dL
(0.6-1.0)
Glucose 114 H mg/dl
(70-99)
Lactate Dehydrogenase 332 H U/L
(120-246)
Urine Bacteria (Reflex) Few A
(Negative)
Urine Albumin (Reflex) 2+ A
(Neg - Trace)
01/15/25 17:34
01/15/25 17:34
Vital Signs
Initial and Last Documented VS:
Initial Vital Signs
Temp Pulse Resp BP Pulse Ox
36.8 C 77 18 156/72 94
01/15/25 17:23 01/15/25 17:23 01/15/25 17:23 01/15/25 17:23 01/15/25 17:23
Last Documented Vital Signs
Temp Pulse Resp BP Pulse Ox
36.4 C 71 18 161/71 95
01/15/25 22:43 01/15/25 22:43 01/15/25 22:43 01/15/25 22:43 01/15/25 22:43
MDM/Problems Addressed
Differential Diagnosis Includes:
see MDM
MDM/Problems Addressed:
Note:
CHIEF COMPLAINT(S)
- Left flank pain
HISTORY OF PRESENT ILLNESS
The patient is an 84-year-old female who initially presented with left flank pain. She had a previous admission at the beginning of December for similar symptoms of back pain, but had complicated admission (3 weeks). During her previous admission,
various causes for her pain were explored, including possible musculoskeletal issues, gallbladder problems, and kidney-related issues. At that time, she was treated with morphine for pain relief, and subsequent tests ruled out acute infections or
kidney obstructions.
she developed afib and had cardioversion after syncopal event
she also required some lasix which was new, only taking 2 times a week
but recently has had increased edema in her legs and was told to increase it and take 2 more doses this weekend.
Currently, the patient reports that the pain in her back, which initially seemed to have subsided post-discharge, has recurred and intensified. she says it comes and goes.
The pain is located on the left side, does not radiate, and sometimes increases when the patient moves or changes position, with a pain severity reported as high as seven out of ten. The patients daughter notes that the pain sometimes causes
significant discomfort, as observed when the patient rocks back and forth at the dinner table.
daughter called PCP who told her maybe it's her kidneys and to come get checked
no fever, chills, cough, cp, focal weakness
pt is mildly SOB
PAST MEDICAL AND SURIGICAL HISTORY
- Atrial fibrillation
- Past cardiac evaluation and cardioversion
- Previous admission for left flank pain
ADDITIONAL HISTORY OBTAINED FROM SOURCES OTHER THAN THE PATIENT
Per the patients daughter, the patient began experiencing pain again on Wednesday after being discharged from a rehabilitation facility following a hospital admission. 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
CHRONIC MEDICAL CONDITIONS SIGNIFICANTLY AFFECTING CARE
- Atrial fibrillation
- Chronic kidney disease (suspected based on past issues and family concerns)
- Congestive heart failure (suspected, pending further evaluation)
SOCIAL DETERMINANTS AFFECTING HEALTH
The patient lives with her daughter and spouse, who has brain cancer. Financial stress or caregiving responsibilities may contribute to the patients overall stress levels and affect her health management.
REVIEW OF SYSTEMS
- Neurological: No numbness or tingling in the legs reported.
- Genitourinary: No burning on urination, blood in urine, or significant urinary symptoms.
- Musculoskeletal: Left flank pain, exacerbated by certain movements.
- Cardiovascular: Swelling in legs and feet; shortness of breath noted by the daughter during some activities such as when dressing.
- Gastrointestinal: No vomiting since changing from morphine to oxycodone.
- General: No fever or chills reported.
PHYSICAL EXAM
GENERAL: Alert , in no apparent distress comfortable at rest
EYE: pupils equal and reactive
NECK: Supple
ENT: o/p clr, mmm.
CARDIAC: Bradycardic, moderate pitting edema bilateral lower extremities to her knees
LUNGS: Diminished to her left base, no tachypnea, no cough, no respiratory distress
Back: Normal inspection, no rash, there is [address], they were removed to reveal normal skin, no CVA tenderness, patient is able to flex forward and lay back without significant discomfort
ABDOMEN: Soft, without focal tenderness, no r/g, no cvat, normal bowel sounds
NEUROLOGICAL: Alert and oriented, no focal neuro deficits
SKIN: Warm and dry, skin intact.
MUSCULOSKELETAL: Mild to moderate edema, well perfused. neg que's sign
PSYCH: Normal and appropriate interaction.
PROBLEM LIST
Acute Problems:
- Left flank pain of uncertain etiology, potential musculoskeletal or neuropathic
- Peripheral edema possibly related to cardiac function
Chronic Problems:
- Atrial fibrillation
- Suspected chronic kidney disease
PLAN
- Conduct a non-contrast computed tomography scan to assess kidney status and rule out any obstructions.
- Perform a chest X-ray to evaluate for possible pleural effusion or congestive heart failure exacerbation.
- Administer appropriate pain management, considering the patients history of intolerance to certain opioids and need for alternatives due to blood thinner use.
- Evaluate current cardiac function, given potential fluid retention issues and ensure adequate diuresis.
- Address social health determinants, considering the patients caregiving role and potential stressors affecting her health.
DIFFERENTIAL DIAGNOSIS
The Differential Diagnosis includes, in no particular order and is not limited to:
1. Kidney stone
2. Musculoskeletal pain
3. Pleural effusion
4. Neuropathy
5. Pyelonephritis
6. Aortic dissection
7. Gallbladder disease
8. Degenerative disc disease
9. Urinary tract infection
10. Spinal stenosis
CARE-UPDATE
01/15/25 - 19:40
The patient has been found to have moderate pleural effusions, likely related to atrial fibrillation (A-Fib) and congestive heart failure (CHF). Current medications include diuretics; however, the fluid buildup has worsened, prompting consideration
of escalating care. The hospital admission is recommended to manage the fluid retention aggressively, potentially through intravenous (IV) LASIX or direct fluid removal. Other differentials considered for pleural effusion were pneumonia and
malignancy, but these are less likely. The patient reports pain that might be linked to fluid accumulation, and pain management is being assessed. Gallbladder sludge is noted, but no acute kidney issues are present. Plan includes starting IV LASIX
following the patients previous oral intake of 20 mg LASIX today.
*Pulse Oximetry
SaO2: 93
Oxygen Mode of Delivery: Room air
Patient hypoxic: no (95)
*Critical Care Note
Total Time (30-74mins, 75-104mins- exclusive of procedures): Not Applicable
ED Attending Note
-
Portions of this chart may have been created with voice recognition software.� Occasional wrong word or��sound alike� substitutions may have occurred due to the inherent limitations of voice recognition software.
Discharge Plan
Departure
Patient Disposition: Admit
Date of Disposition: 01/15/25
Time of Disposition: 19:40
Admit to: Telemetry
Presentation/result/management discussed w/ accepting MD/DO: Hospitalist
Condition: Fair
Covid-19: Not Applicable
Discharge Problem:
Pleural effusion, CHF (congestive heart failure)
Interventions
Interventions:
*Risk Screen - Suicide Last Done: 01/15/25 17:20
*General Assessment Last Done: 01/15/25 17:23
*Neglect/Abuse Screening Last Done: 01/15/25 17:49
*ED COVID-19 Vaccine History Last Done: 01/15/25 17:49
*ED Influenza Vaccine History Last Done: 01/15/25 17:49
[facility] Fall Risk Assessment Tool Last Done: 01/15/25 17:49
*Nursing Disposition Last Done: 01/15/25 22:50
AT-[facility]-Gdxnffdnew Assessment Last Done: 01/15/25 17:49
ED-Female Genitourinary Assessment Last Done: 01/15/25 17:49
Discharge Date and Time
Discharge Date/Time: 01/15/25 22:50
[2025-01-15] MEDS: LASIX 40 MG IV (20:09)
[2025-01-15 20:10] VITALS: BP 159/64
--- NOTE | 2025-01-15 20:22 | HPS.HSE ---
Family Physician
-
Family Physician: Unique Vega
Chief Complaint
-
back pain, shortness of breath
History of Present Illness
84-year-old female past medical history of CAD status post PCI, persistent atrial fibrillation on Eliquis, CHF, diabetes, hypertension, CKD 3, chronic back pain, degenerative disc disease, hypothyroidism, history of TIA/CVA, syncopal episode likely
secondary to orthostatic hypotension, presenting with worsening acute on chronic mid back pain. She has been taking Tylenol and lidocaine patch but still having pain and difficulty ambulating.
She has also been having intermittent shortness of breath worse when she is trying to do activities such as putting her clothes on. Denies cough. Denies fevers or chills. Denies chest pain. She has increased lower extremity swelling. Denies
weight gain. She has been taking 20 mg Lasix on Wednesday and Wednesday.
Patient was recently admitted from 12/16 to 01/01 for left back pain, atrial fibrillation with RVR, also sepsis secondary to UTI.
Patient denies any smoking or alcohol use.
Medical History
Past Medical History
Past Medical History: Reports Other (CAD status post PCI, persistent atrial fibrillation on Eliquis, CHF, diabetes, hypertension, CKD 3, chronic back pain, degenerative disc disease, hypothyroidism, history of TIA/CVA, syncopal episode likely
secondary to orthostatic hypotension)
Past Surgical History: Reports None
Social History
Tobacco: Non-smoker
Alcohol: None
Drug: None
Family History
Family History: Not pertinent
Allergies / Home Medications
Allergies reflects when Allergies were last updated in [employer].
Home Medications with original date entered in [employer]
Allergy/Medication List:
Allergies
Allergy/AdvReac Type Severity Reaction Status Date / Time
semaglutide (From Ozempic) Allergy Itching Verified 01/15/25 17:23
Home Medications
ascorbic acid (vitamin C) 250 mg tablet 250 mg PO DAILY Supplement 01/08/18
cyanocobalamin (vitamin B-12) 1,000 mcg tablet 1,000 mcg PO DAILY Supplement 01/08/18
cholecalciferol (vitamin D3) 25 mcg (1,000 unit) tablet 25 mcg PO Q48H Supplement 01/14/21
rosuvastatin 10 mg tablet 10 mg PO HS High Cholesterol 01/14/21
aspirin 81 mg chewable tablet 81 mg PO DAILY Heart disease/condition #30 tabs 09/04/24
amlodipine 2.5 mg tablet 2.5 mg PO BID #0 tabs 01/01/25
apixaban 2.5 mg tablet (Eliquis) 2.5 mg PO BID #0 tabs 01/01/25
isosorbide mononitrate 30 mg tablet,extended release 24 hr 30 mg PO DAILY #0 tabs 01/01/25
levothyroxine 75 mcg tablet 75 mcg PO DAILY@0600 #0 tabs 01/01/25
acetaminophen 325 mg tablet (Tylenol) 650 mg PO Q6HPRN PRN mild pain 01/15/25
insulin aspart U-100 100 unit/mL (3 mL) subcutaneous pen (Novolog FlexPen U-100 Insulin aspart) 5 sliding scale dose SC AC Diabetes 01/15/25
insulin glargine 100 unit/mL (3 mL) subcutaneous pen (Lantus Solostar U-100 Insulin) 11 unit SC HS Diabetes 01/15/25
lidocaine 4 % topical patch 2 patch topical DAILYPRN PRN lower back 01/15/25
Review of Systems
-
History Source: Patient
A 12 point ROS was completed and negative except as noted: Yes
Constitutional: Reports No Symptoms
EENT: Reports No Symptoms
Respiratory: Reports No Symptoms
Cardiac: Reports See HPI
Abdomen/GI: Reports No Symptoms
: Reports No Symptoms
Musculoskeletal: Reports See HPI
Skin: Reports No Symptoms
Neurological: Reports No Symptoms
Endocrine: Reports No Symptoms
Hematologic/Lymphatic: Reports No Symptoms
Psych: Reports No Symptoms
Physical Exam
Vital Signs
Vital Signs
Temp Pulse Resp BP Pulse Ox
98.2 F 69 19 159/64 93
01/15/25 17:23 01/15/25 20:09 01/15/25 18:30 01/15/25 20:09 01/15/25 19:45
Physical Exam
General: Well Developed, Well Nourished and No Apparent Distress
HEENT: NormoCephalic, Moist mucous membranes and Atraumatic
Respiratory: Clear
Cardiac: S1/S2 and Regular Rhythm; No Murmur or Rub
GI: Soft, Non Tender, Non Distended and Normal Bowel Sounds; No Organomegaly
Rectal: Deferred by Provider
Musculoskeletal: No Clubbing, No Cyanosis and No Edema
Skin: No Rash
Neuro: Nonfocal/grossly intact
Laboratory Results
-
01/15/25 17:34
01/15/25 17:34
Laboratory Results
Lactic Acid 1.2 mmol/L (0.7-2.0) 01/15/25 17:35
Total Bilirubin 1.0 mg/dl (0.2-1.3) 01/15/25 17:34
AST 26 U/L (14-36) 01/15/25 17:34
ALT 22 U/L (0-35) 01/15/25 17:34
Alkaline Phosphatase 114 U/L (38-126) 01/15/25 17:34
Data Reviewed
-
Lab Data: Labs Reviewed by me
Old Records: Reviewed
Impression/Plan
-
IMPRESSION:
PLAN:
# Acute HFpEF exacerbation
# Moderate left pleural effusion
-not hypoxic
-Cardiac BNP 5000
-Chest x-ray shows left basilar opacification suspicious for moderate left pleural effusion
- Check I's and O's, daily weights
- Lasix 40 IV daily
- Cardiology consulted
- IR for thoracentesis
# Acute on chronic lower back secondary to degenerative disc disease
-Continue Tylenol
- Continue lidocaine patch
- As needed oxycodone
CAD status post PCI
- Continue aspirin
- Continue isosorbide mononitrate
Persistent atrial fibrillation
- Continue Eliquis
Type 2 diabetes
- Continue Lantus 11 units
- Continue insulin sliding scale
Essential hypertension
- Continue amlodipine
CKD 3
- Renal function at baseline
Hypothyroidism
- Continue levothyroxine
History of TIA/CVA
- Continue statin
History of syncopal episode likely secondary to orthostatic hypotension
Full code
DVT prophylaxis�Eliquis
Cardiac diet
[2025-01-15 22:36] VITALS: BMI 23.8
[2025-01-15 22:43] VITALS: BP 161/71
--- NOTE | 2025-01-15 22:45 | PTCARENOTE ---
Pt received from ED via stretcher at 2230. Pt pleasant, AAOx3, VSS, absent of pain, and able to ambulate into room with assistance. Pt receptive to room and call vasquez. Pt bed in lowest position and call vasquez within reach. Pt educated on importance
of call vasquez usage, pt relays limited understanding and cooperation. Bed alarm placed and plugged in. Will continue with current plan of care.
[2025-01-15 22:46] LABS: Glucose - Point of Care 195 mg/dl (70-99)
[2025-01-15 23:12] VITALS: BMI 23.8
[2025-01-15 23:18] LABS: LDH 332 U/L (120-246)
[2025-01-15] MEDS: LANTUS 0.11 UNITS SC (23:46)
[2025-01-15] MEDS: CRESTOR 10 MG PO (23:46)
[2025-01-16] VITALS (10 sets, daily range): BP systolic 68–172; BP diastolic 32–67; BMI 23.8
[2025-01-16] MEDS: ELIQUIS 2.5 MG PO ×3 (01:06→19:10)
[2025-01-16] MEDS: SYNTHROID 75 MCG PO (05:34)
[2025-01-16 07:40] LABS: Glucose - Point of Care 115 mg/dl (70-99)
--- NOTE | 2025-01-16 08:10 | CON.CAR ---
Addendum entered and electronically signed by Cam Read MD 01/16/25 14:20:
I saw and examined the patient.
The FORGING PRESS OPERATOR or PA's note was reviewed and I agree with the note.
Comment: General: Well developed, well nourished in NAD.
Neck: Supple, no JVD, HJR, carotids +2 B/L, no bruits bilaterally.
Heart: Non displaced PMI, RRR, no murmurs, No S3, S4, no rubs.
Lungs: Scattered rhonchi
Extremities: No clubbing, cyanosis or edema bilaterally.
Neuro: Grossly nonfocal, awake, alert and oriented x3.
Snow has history of A-fib status post PVI in March 2024, chronic diastolic CHF, improved resolved cardiomyopathy, CAD status post stent, CKD 3B, diabetes, CVA, hypertension, hyperlipidemia. She had been admitted December 2024 with left flank
pain thought to be occult cholecystitis but HIDA scan was negative. No etiology of left flank pain was determined. Of note she was seen in our office and arrange for outpatient cardioversion had successful inpatient cardioversion December 25, 2024
but subsequently amiodarone was stopped due to bradycardia. She had been to [facility] for a week then return home to the family. She has noted increased lower extremity edema and weight gain as well as worsening left flank plain. In the ER
workup was negative for left flank pain but she is found to have CHF.
Will assess response status post diuresis. Of note she did not notice any difference in shortness of breath with thoracentesis earlier today. She will have a workup for left flank pain as well.
Original Note:
Consultation
Consultation Request
Date/Time Consultation Requested: 01/15/2025 at 03/19/2004
Date/Time Consultation Performed: 01/16/2025 at 0811
Requesting Provider: Dr. Pandya
Performing Provider: Dr. Read
Reason for Consultation: Acute HF
Medical History
-
History of Present Illness:
Patient came to the ER yesterday with complaints of recurrent left flank pain and SOB and was admitted with consultation to cardiology for acute on chronic HFpEF. Patient was recently admitted from 12/16/2024 until 01/01/2025 with left flank pain
that was initially thought to be acute cholecystitis, but HIDA scan was negative. Patient was seen in consultation by the general surgery service for possible chronic cholecystitis, but there is no plan for surgical intervention at that time.
Cardiology followed along during that admission for recurrent symptomatic atrial arrhythmia. Patient has a history of paroxysmal atrial fibrillation and previously had a prolonged hospitalization while she awaited inpatient PVI 03/29/2024. Patient
was then seen in the office at the end of November and noted to be in recurrent A-fib and the plan was for an outpatient CV, the patient was then admitted from 12/16/2024 until 01/01/2025 as noted above. Patient had a successful inpatient CV
12/25/2024 and outpatient dose of amiodarone was initially continued, but then stopped due to bradycardia following roman catholic of SR. This was the patient's first documented clinically significant recurrence of A-fib since her PVI, but a plan was
tentatively made that if patient had recurrent A-fib following CV that her next option would likely be ablate and pace. Patient was also treated for symptomatic orthostasis during her admission last month and her usual doses of Imdur ER and Coreg
were stopped, although Coreg was also stopped in part due to bradycardia. Orthostasis improved, but patient still required a 1 week rehab stay prior to returning home with her family. Patient went to [facility] for 1 week and then returned home
with her family, there was a call to our office from the patient's daughter on 01/15/2025 noting increased LE edema and weight gain. When patient left the hospital she was taking Lasix 20 mg PRN weight gain and patient was advised to take a dose of
Lasix 20 mg and then called our office later to report her weight was down by 3 lbs after a single dose, but ongoing edema. Patient also had a call out to her PCP same day to report recurrence of left flank pain and PCP recommended ER evaluation
for possible pyelonephritis. Patient came to the ER last night and had a CT of the abdomen and pelvis that showed moderate left and small right sized pleural effusions, but no evidence of urinary tract calculus, dilatation or perinephric stranding.
There was possible gallbladder sludge, but as noted during her last admission her HIDA scan was negative. Patient reports ongoing left flank pain that was not improved following successful left-sided thoracentesis.
PMH:
Recent admission for left flank pain, orthostasis and recurrent A-fib 12/16/2024 until 01/01/2025
Chronic HFpEF
Paroxysmal atrial fibrillation
s/p PVI for AF 03/29/24
s/p successful CV 12/25/2024
h/o amiodarone therapy, stopped due to bradycardia 12/2024
Improved CM, presumably tachycardia mediated, EF 35% by echo 03/17/2024 in the setting of A-fib, improved to 55 to 60% by echo 06/04/2024
Orthostatic hypotension
CAD
s/p 3.0 mm Xience STEFAN to the proximal to mid LAD and PTCA alone of diagonal�1 and OM�1 02/18/2008
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
Chronic kidney disease, stage 3b
Diabetes mellitus type 2
CVA in 2013
Hypertension
Dyslipidemia
Past Medical History
Past Medical History: Other (in HPI)
Past Surgical History: Cardiac (PCI)
Social History
Tobacco: Non-Smoker
Alcohol: None
Drug: None
Personal:
Living: With Family
Family History
Family History: CAD and Other (COPD)
Allergies / Home Medications
Allergy/AdvReac Type Severity Reaction Status Date / Time
semaglutide (From Ozempic) Allergy Itching Verified 01/15/25 17:23
�Medication �Instructions �Recorded �Confirmed �Type
ascorbic acid (vitamin C) 250 mg 250 mg PO DAILY Supplement 01/08/18 01/15/25 History
tablet
cyanocobalamin (vitamin B-12) 1,000 mcg PO DAILY Supplement 01/08/18 01/15/25 History
1,000 mcg tablet
cholecalciferol (vitamin D3) 25 25 mcg PO Q48H Supplement 01/14/21 01/15/25 History
mcg (1,000 unit) tablet
rosuvastatin 10 mg tablet 10 mg PO HS High Cholesterol 01/14/21 01/15/25 History
aspirin 81 mg chewable tablet 81 mg PO DAILY Heart 09/04/24 01/15/25 Rx
disease/condition #30 tabs
amlodipine 2.5 mg tablet 2.5 mg PO BID #0 tabs 01/01/25 01/15/25 Rx
apixaban 2.5 mg tablet (Eliquis) 2.5 mg PO BID #0 tabs 01/01/25 01/15/25 Rx
isosorbide mononitrate 30 mg 30 mg PO DAILY #0 tabs 01/01/25 01/15/25 Rx
tablet,extended release 24 hr
levothyroxine 75 mcg tablet 75 mcg PO DAILY@0600 #0 tabs 01/01/25 01/15/25 Rx
acetaminophen 325 mg tablet 650 mg PO Q6HPRN PRN mild pain 01/15/25 01/15/25 History
(Tylenol)
insulin aspart U-100 100 unit/mL 5 sliding scale dose SC AC Diabetes 01/15/25 01/15/25 History
(3 mL) subcutaneous pen (Novolog
FlexPen U-100 Insulin aspart)
insulin glargine 100 unit/mL (3 11 unit SC HS Diabetes 01/15/25 01/15/25 History
mL) subcutaneous pen (Lantus
Solostar U-100 Insulin)
lidocaine 4 % topical patch 2 patch topical DAILYPRN PRN lower 01/15/25 01/15/25 History
back
Review of Systems
-
History Source: Patient
All other systems: Negative unless noted
Physical Exam
Vital Signs
Temp Pulse Resp BP Pulse Ox
97.6 F 69 15 172/63 96
01/16/25 07:45 01/16/25 07:20 01/16/25 07:45 01/16/25 07:45 01/16/25 07:45
GEN: NAD, AAO x3
HEENT: EOMI, MMM
LUNGS: RA. Decreased BS left worse than right base, no wheeze
CV: SR on tele. Reg, S1/S2, no murmur, rub or gallop
ABD: ND
EXT: Trace B/L LE edema.
NEURO: Gross non-focal
SKIN: No rash, warm, dry, pink
Lab Results
Zlv-W-Sogpylbbuwf Pept 5030 pg/ml 01/15/25 18:55
Labs 01/16/25:
BMP: Creatinine 1.4, BUN 26, sodium 138, potassium 3.6
CBC: Hgb 11.3, hematocrit 34.6, WBC 8.3, platelet count 157
Impression / Plan
-
Primary collar packer is Dr. Cam Read
Primary care provider is Dr. Susie Jarquin PA-C
Assessment:
Admitted with recurrent left flank pain and acute HF 01/15/2025
Recent admission for left flank pain, orthostasis and recurrent A-fib 12/16/2024 until 01/01/2025
Left flank pain, possibly musculoskeletal or DDD
Acute on chronic HFpEF
Left-sided pleural effusion s/p successful left sided thoracentesis for 600 mL 01/16/25
Paroxysmal atrial fibrillation
s/p PVI for AF 03/29/24
s/p successful CV 12/25/2024
h/o amiodarone therapy, stopped due to bradycardia 12/2024
Improved CM, presumably tachycardia mediated, EF 35% by echo 03/17/2024 in the setting of A-fib, improved to 55 to 60% by echo 06/04/2024
Orthostatic hypotension
CAD
s/p 3.0 mm Xience STEFAN to the proximal to mid LAD and PTCA alone of diagonal�1 and OM�1 02/18/2008
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
Chronic kidney disease, stage 3b
Diabetes mellitus type 2
CVA in 2013
Hypertension
Dyslipidemia
Echo 04/01/2022: EF 55%, mild cLVH, stage II diastolic dysfunction, mild MAC, mild to moderate MR, mild AI
Echo 03/17/2024: EF 35%, moderate tricuspid regurgitation and elevated pulmonary artery pressures estimated at 55-60 mmHg.
Echo 03/30/2024: Urgent bedside study in the setting of rapid response, EF 40 to 45%, no evidence of pericardial effusion
Echo 06/04/2024: LVEF improved/normalized to 55 to 60%. There is possible basal septal akinesis and basal inferior hypokinesis.
Plan:
-Patient came to the ER yesterday with complaints of recurrent left flank pain and SOB and was admitted with consultation to cardiology for acute on chronic HFpEF. Patient was recently admitted from 12/16/2024 until 01/01/2025 with left flank pain
that was initially thought to be acute cholecystitis, but HIDA scan was negative. Patient was seen in consultation by the general surgery service for possible chronic cholecystitis, but there is no plan for surgical intervention at that time.
Cardiology followed along during that admission for recurrent symptomatic atrial arrhythmia. Patient has a history of paroxysmal atrial fibrillation and previously had a prolonged hospitalization while she awaited inpatient PVI 03/29/2024. Patient
was then seen in the office at the end of November and noted to be in recurrent A-fib and the plan was for an outpatient CV, the patient was then admitted from 12/16/2024 until 01/01/2025 as noted above. Patient had a successful inpatient CV
12/25/2024 and outpatient dose of amiodarone was initially continued, but then stopped due to bradycardia following roman catholic of SR. This was the patient's first documented clinically significant recurrence of A-fib since her PVI, but a plan was
tentatively made that if patient had recurrent A-fib following CV that her next option would likely be ablate and pace. Patient was also treated for symptomatic orthostasis during her admission last month and her usual doses of Imdur ER and Coreg
were stopped, although Coreg was also stopped in part due to bradycardia. Orthostasis improved, but patient still required a 1 week rehab stay prior to returning home with her family. Patient went to [facility] for 1 week and then returned home
with her family, there was a call to our office from the patient's daughter on 01/15/2025 noting increased LE edema and weight gain. When patient left the hospital she was taking Lasix 20 mg PRN weight gain and patient was advised to take a dose of
Lasix 20 mg and then called our office later to report her weight was down by 3 lbs after a single dose, but ongoing edema. Patient also had a call out to her PCP same day to report recurrence of left flank pain and PCP recommended ER evaluation
for possible pyelonephritis. Patient came to the ER last night and had a CT of the abdomen and pelvis that showed moderate left and small right sized pleural effusions, but no evidence of urinary tract calculus, dilatation or perinephric stranding.
There was possible gallbladder sludge, but as noted during her last admission her HIDA scan was negative. Patient reports ongoing left flank pain that was not improved following successful left-sided thoracentesis.
-No ECG performed in the ER, ordered by me 01/16/25
-Telemetry reviewed by me on 01/16/2025 and looks like SR throughout, no obvious recurrent atrial arrhythmia and no evidence of significant bradycardia or heart block
-Patient's main complaint is recurrent left flank pain. GI workup last admission for possible acute cholecystitis yielded a negative HIDA scan and no plan for surgical intervention despite consultation from the general surgery service. There is no
clear cause for recurrent left flank pain, degenerative disc disease is also a possibility. Patient reports pain is generally improved with opioid pain medications.
-From a cardiac standpoint there is evidence of acute on chronic HFpEF. Weight on the day of discharge 01/01/2025 was 160 lbs and weight on readmission was only 152 lbs, but there was evidence of increased left-sided pleural effusion and proBNP had
increased to 5030.
-Lasix 40 mg IV daily ordered for diuresis, patient was taking Lasix 20 mg PO daily PRN weight gain prior to admission, suspect this should be increased to Lasix 20 mg daily or at least 20 mg MWF to reduce risk of recurrent heart failure admission.
-EF was 55 to 60% by echo 06/04/2024, check echo, ordered by me.
-Patient has a known history of paroxysmal A-fib with previous PVI 03/29/2024. Patient had her first clinically significant recurrence of A-fib just prior to her 12/2024 admission and ultimately had successful inpatient CV 12/25/2024. Telemetry
reviewed by me looks like ongoing SR, check ECG as noted above. Patient appears to be maintaining SR without amiodarone which had to be stopped due to bradycardia. If patient has recurrent atrial arrhythmia she would most likely be a candidate for
ablate and pace strategy and this was previously discussed with the patient and both of her daughters by me during her admission last month.
-Patient reports compliance with her usual dosing of Eliquis 2.5 mg BID (age 84, Cre 1.4, wt 68 kg) has been continued. Cre is generally greater than 1.5 justifying the 2.5 mg BID dosing. If Cre is persistently less than 1.5 would consider
increasing dose of Eliquis to 5 mg BID. Follow-up on BMP in the a.m., orders placed by me.
-Patient had symptomatic orthostasis last admission and her doses of Coreg and Imdur ER were stopped, although Coreg was also stopped due to bradycardia. BP improved prior to discharge and Imdur ER 30 mg daily was restarted and patient reports
taking Imdur ER at home prior to this admission. BP has been normotensive to hypertensive since admission, continue Imdur ER.
-Amlodipine 2.5 mg BID was added prior to discharge last month, would continue and follow BP. No evidence of orthostasis at this time.
[2025-01-16] MEDS: NOVOLOG FLEXPEN-LOW RESISTANCE SC ×3 (08:36→16:47)
[2025-01-16 08:41] LABS: Hematocrit 34.6 % (37.0-47.0); Hemoglobin 11.3 g/dL (12.0-16.0); Mean Corp Hgb Conc. 32.7 g/dL (33.0-37.0); Mean Corpuscular Volume 93.8 fL (81.0-99.0); Nucleated Red Blood Cells % 0 %; Platelet Count 157 10^3/uL (130-400); Red Cell Dist. Width 16.4 % (11.5-14.5)
[2025-01-16] MEDS: IMDUR (EXTENDED RELEASE) 30 MG PO (09:03)
[2025-01-16] MEDS: LASIX 40 MG IV (09:03)
[2025-01-16] MEDS: LOW STRENGTH ASPIRIN 81 MG PO (09:04)
[2025-01-16] MEDS: VITAMIN B-12 1000 MCG PO (09:06)
[2025-01-16] MEDS: NORVASC 2.5 MG PO ×2 (09:06→19:11)
[2025-01-16 09:07] LABS: ALT (SGPT) 18 U/L (0-35); AST (SGOT) 20 U/L (14-36); Albumin 4.0 g/dl (3.5-5.0); Alkaline Phosphatase 88 U/L (38-126); Blood Urea Nitrogen 26 mg/dl (7-17); Calcium 9.3 mg/dl (8.4-10.2); Carbon Dioxide 28 mmol/L (22-30); Chloride 103 mmol/L (98-107); Estimated Creatinine Clearance 29 ml/min; Glucose 99 mg/dl (70-99); Potassium 3.6 mmol/L (3.5-5.1); Sodium 138 mmol/L (135-145); Total Protein 6.7 g/dl (6.3-8.2); eGFR 37.10
[2025-01-16] MEDS: NOVOLOG FLEXPEN 5 UNITS SC ×3 (09:07→17:30)
[2025-01-16] MEDS: VITAMIN C 250 MG PO (09:07)
[2025-01-16] MEDS: TYLENOL 650 MG PO ×2 (09:15→16:30)
--- NOTE | 2025-01-16 09:21 | PTCARENOTE ---
pt rec'd from IR s/p L thoracentesis. pt ambulated from stretcher to bed with RW. pt AAOx3, VSS. POC ongoing.
[2025-01-16 10:05] LABS: Body Fluid Second Tech EM
[2025-01-16 10:42] LABS: Glycohemoglobin (HgbA1c) 7.5 % (4.0-5.9)
--- NOTE | 2025-01-16 11:29 | CM ---
CM reviewed chart, patient seen bedside, initial assessment completed.
Patient is an 84-year-old female past medical history of CAD status post PCI, persistent atrial fibrillation on Eliquis, CHF, diabetes, hypertension, CKD 3, chronic back pain, degenerative disc disease, hypothyroidism, history of TIA/CVA, syncopal
episode likely secondary to orthostatic hypotension, presenting with worsening acute on chronic mid back pain.
Patient resides with her spouse in an in law suite attached to [facility], one step to enter.
Patient reports cane, walker, and chair lift at home.
Patient reports current with [facility], confirmed with liaison, will send referral in [facility].
Patient reports [facility].
PCP Unique Vega, Pharmacy [facility], confirms insurance.
Patient denies insecurities at home, confirms transport home on d/c.
Patient may benefit from therapy evals.
CM will continue to follow for all d/c needs.
Plan; home with [facility] likely
[2025-01-16 12:09] LABS: Glucose - Point of Care 138 mg/dl (70-99)
--- NOTE | 2025-01-16 12:33 | W.PN.HOSP.TC ---
Today's Communication/Plan
-
adding amlodipine to help with BP control.
Assessment / Plan
Assessment / Plan
84F with CAD s/p PCI, PAF on Eliquis, CHF, DM, HTN, CKD 3, chronic back pain, DDD; p/w SOB, acute on chronic left lumbar pain.
A/P:
Acute exacerbation of HFpEF
Dyspnea on exertion, elevated BNP, CXR with bilateral pleural effusions, L> R
S/p thoracentesis with IR this morning
IV Lasix, check daily weights and I's/Os, tuyere fitter
Not on BB due to bradycardia, not on MRA/SRINIVAS/ARB due to recent OBIE on CKD and orthostatic hypotension. Continue Imdur, BP controlled.
Cardiology consulted
CAD s/p PCI
HLD
cont statin
DM
BG control is fair
Continue Lantus 11 units HS, lispro 5 units TID-meals
ISS coverage
Hypothyroidism
levothyroxine 75 mcg p.o. daily
Check repeat TSH given acute heart failure
History of TIA/CVA
On Eliquis and statin
History of A-fib
S/p cardioversion, now in sinus
Monitor on telemetry
DVT prophylaxis: Eliquis
CODE STATUS: Full code
Dispo: PT rec SNF, however family declined SNF and elected for . After repeat discussion, patient may be willing to go, discussed with correctional counselor/case manager, facility list given and pending facility choice/referral.
Anticipated Discharge: 24 - 48 hours
Subjective/Interval History
-
Date of Service: January 16, 2025
Still with pain at site of thoracentesis
Objective Data
-
Labs:
Laboratory Results
01/16/25
07:28
WBC 8.3
Hgb 11.3 L
Hct 34.6 L
Plt Count 157
Sodium 138
Potassium 3.6
Chloride 103
Carbon Dioxide 28
BUN 26 H
Creatinine 1.4 H
Glucose 99
Calcium 9.3
Total Bilirubin 0.9
AST 20
ALT 18
Alkaline Phosphatase 88
Vital Signs:
Vital Signs
Temp Pulse Resp BP Pulse Ox
98.4 F 61 16 132/32 94
01/16/25 10:48 01/16/25 10:48 01/16/25 10:48 01/16/25 10:48 01/16/25 10:48
I&O
01/15/25 01/16/25 01/17/25
06:59 06:59 06:59
Output Total 1949
Balance -1949 -1949
Review of Systems
-
History Source: Patient
All other systems: Reviewed and negative
Physical Exam
-
General: No Apparent Distress and Conversant
HEENT: Moist Mucous Membranes, Anicteric and PERRLA
Respiratory: Clear to Auscultation; Negative Wheezes, Rales or Rhonchi
Cardiac: Regular Rhythm and S1/S2; Negative Murmur
GI: Soft, Nontender, Nondistended and Normal Bowel Sounds
Musculoskeletal: No Edema
Skin: Warm and Dry; Negative Rash, Ulcers or Lesions
Neuro: Awake and AO x 3
Hematologic / Lymphatic: No Lymphadenopathy
Psych: Calm
Data Reviewed
-
Diagnostic Radiology: Image personally visualized and interpreted, Report Reviewed by me and Discussed with Patient
Labs: Labs Reviewed by me and Discussed with Patient
[2025-01-16 12:54] LABS: TSH 4.32 uIU/ml (0.47-4.68)
[2025-01-16 16:25] LABS: Glucose - Point of Care 84 mg/dl (70-99)
[2025-01-16 16:39] LABS: Glucose - Point of Care 102 mg/dl (70-99)
[2025-01-16] MEDS: ROXICODONE 5 MG PO (18:10)
[2025-01-16] MEDS: LIDOCAINE 4% PATCH 1 PATCH TOPICAL (19:14)
[2025-01-16] MEDS: ZOFRAN 4 MG IV (19:15)
[2025-01-16] MEDS: CRESTOR 10 MG PO (21:18)
[2025-01-16 21:19] LABS: Glucose - Point of Care 101 mg/dl (70-99)
[2025-01-16] MEDS: LANTUS 0.11 UNITS SC (21:20)
[2025-01-17] VITALS (8 sets, daily range): BP systolic 121–147; BP diastolic 48–79; PULSE 65; O2SAT 95; BMI 22.8
[2025-01-17] MEDS: SYNTHROID 75 MCG PO (05:39)
[2025-01-17 07:50] LABS: Hematocrit 34.9 % (37.0-47.0); Hemoglobin 11.4 g/dL (12.0-16.0); Mean Corp Hgb Conc. 32.7 g/dL (33.0-37.0); Mean Corpuscular Volume 94.8 fL (81.0-99.0); Platelet Count 160 10^3/uL (130-400); Red Cell Dist. Width 16.4 % (11.5-14.5)
[2025-01-17 08:15] LABS: Glucose - Point of Care 97 mg/dl (70-99)
[2025-01-17 08:30] LABS: Blood Urea Nitrogen 28 mg/dl (7-17); Calcium 8.8 mg/dl (8.4-10.2); Carbon Dioxide 31 mmol/L (22-30); Chloride 101 mmol/L (98-107); Estimated Creatinine Clearance 23 ml/min; Glucose 81 mg/dl (70-99); Potassium 3.9 mmol/L (3.5-5.1); Sodium 136 mmol/L (135-145); eGFR 27.44
[2025-01-17] MEDS: NOVOLOG FLEXPEN-LOW RESISTANCE SC ×2 (08:31→17:27)
[2025-01-17] MEDS: IMDUR (EXTENDED RELEASE) 30 MG PO (08:44)
[2025-01-17] MEDS: NOVOLOG FLEXPEN 5 UNITS SC ×3 (08:44→17:42)
[2025-01-17] MEDS: VITAMIN C 250 MG PO (08:44)
[2025-01-17] MEDS: NORVASC 2.5 MG PO ×2 (08:45→19:22)
[2025-01-17] MEDS: VITAMIN B-12 1000 MCG PO (08:45)
[2025-01-17] MEDS: LOW STRENGTH ASPIRIN 81 MG PO (08:45)
[2025-01-17] MEDS: ELIQUIS 2.5 MG PO ×2 (08:45→19:23)
[2025-01-17] MEDS: LIDOCAINE 4% PATCH 1 PATCH TOPICAL (08:46)
[2025-01-17] MEDS: VITAMIN D3 (cholecalciferol) 25 MCG PO (08:46)
[2025-01-17] MEDS: LASIX IV (08:47)
[2025-01-17] MEDS: REMOVE LIDOCAINE PATCH 1 PATCH REMOVE ×2 (08:50→19:24)
[2025-01-17] MEDS: TYLENOL 650 MG PO ×2 (09:42→17:45)
--- NOTE | 2025-01-17 10:51 | CM ---
CM reviewed chart, patient seen bedside.
Confirmed with liaison from [facility], patient is current.
Patient confirms transport home upon d/c.
CM will continue to follow.
Plan; home with [facility]
--- NOTE | 2025-01-17 11:16 | W.PN.HOSP.TC ---
Today's Communication/Plan
-
Dyspnea improved holding Lasix today
Assessment / Plan
Assessment / Plan
84F with CAD s/p PCI, PAF on Eliquis, CHF, DM, HTN, CKD 3, chronic back pain, DDD; p/w SOB, acute on chronic left lumbar pain.
A/P:
Acute exacerbation of HFpEF
Dyspnea on exertion, elevated BNP, CXR with bilateral pleural effusions, L> R
S/p thoracentesis with IR this morning
Received IV Lasix with improvement, creatinine bumped to 1.8, Lasix stopped
check daily weights and I's/Os, court recording monitor
Not on BB due to bradycardia, not on MRA/SRINIVAS/ARB due to recent OBIE on CKD and orthostatic hypotension. Continue Imdur, BP controlled.
Cardiology consulted
Left flank pain chronic
Extensive workup last admission, CT A/P repeated again this admission, left pleural effusion, noted to have gallbladder sludge, presacral edema
Also thoracentesis on the left side which may have contributed
Lidocaine patch, when not wearing can try heating pad
Pain control meds
If further pain would recommend outpatient follow-up with PCP
CKD
Following with nephrology
Monitor BMP given creatinine bump with Lasix
CAD s/p PCI
HLD
cont statin
DM
BG control is good
Continue Lantus 11 units HS, lispro 5 units TID-meals
ISS coverage
Hypothyroidism
levothyroxine 75 mcg p.o. daily
TSH/T4 are Ionil
History of TIA/CVA
On Eliquis and statin
History of A-fib
S/p cardioversion, now in sinus
Monitor on telemetry
DVT prophylaxis: Eliquis
CODE STATUS: Full code
Anticipated Discharge: Within 24 hours
Subjective/Interval History
-
Date of Service: January 17, 2025
Patient no longer dyspneic on exertion, still having back pain at times, sleeping comfortably on my arrival, easily awakened
Objective Data
-
Labs:
Laboratory Results
01/17/25
06:56
WBC 7.6
Hgb 11.4 L
Hct 34.9 L
Plt Count 160
Sodium 136
Potassium 3.9
Chloride 101
Carbon Dioxide 31 H
BUN 28 H
Creatinine 1.8 H
Glucose 81
Calcium 8.8
Vital Signs:
Vital Signs
Temp Pulse Resp BP Pulse Ox
97.4 F 66 18 147/57 96
01/17/25 07:20 01/17/25 08:45 01/17/25 07:20 01/17/25 08:45 01/17/25 07:20
I&O
01/16/25 01/17/25 01/18/25
06:59 06:59 06:59
Intake Total 740 / 740
Output Total 1949 275 / 275
Balance -1949 -1949 465 / 465
Review of Systems
-
History Source: Patient
All other systems: Reviewed and negative
Physical Exam
-
General: No Apparent Distress and Conversant
HEENT: Moist Mucous Membranes, Anicteric and PERRLA
Respiratory: Clear to Auscultation; Negative Wheezes, Rales or Rhonchi
Cardiac: Regular Rhythm and S1/S2; Negative Murmur
GI: Soft, Nontender, Nondistended and Normal Bowel Sounds
Musculoskeletal: Other (trace edema at ankles b/l)
Skin: Warm and Dry; Negative Rash, Ulcers or Lesions
Neuro: Awake and AO x 3
Hematologic / Lymphatic: No Lymphadenopathy
Psych: Calm
Data Reviewed
-
Diagnostic Radiology: Image personally visualized and interpreted, Report Reviewed by me and Discussed with Patient
Labs: Labs Reviewed by me and Discussed with Patient
[2025-01-17 11:46] LABS: Glucose - Point of Care 191 mg/dl (70-99)
[2025-01-17] MEDS: NOVOLOG FLEXPEN-LOW RESISTANCE 1 UNITS SC (12:48)
--- NOTE | 2025-01-17 15:33 | W.PN.CARDCBS ---
Addendum entered and electronically signed by Cam Read MD 01/17/25 16:42:
I saw and examined the patient.
The HEAD CHEF or PA's note was reviewed and I agree with the note.
Comment: General: Well developed, well nourished in NAD.
Neck: Supple, no JVD, HJR, carotids +2 B/L, no bruits bilaterally.
Heart: Non displaced PMI, RRR, no murmurs, No S3, S4, no rubs.
Lungs: Scattered rhonchi
Extremities: No clubbing, cyanosis or edema bilaterally.
Neuro: Grossly nonfocal, awake, alert and oriented x3.
She is likely overdiuresed and will hold Lasix. Might consider restart Lasix at 20 mg Wednesday or daily upon discharge. Still no etiology for right flank pain but she feels it has improved.
Original Note:
Today's Communication / Plan
-
Cre up to 1.8 and Lasix IV is now on hold
Pending BMP in a.m. recommend Lasix 20 mg MWF or daily upon discharge to home, patient had been using a PRN regimen prior to admission
Impression / Plan
-
Primary garnett machine operator helper is Dr. Cam Read
Primary care provider is Dr. Susie Jarquin PA-C
Assessment:
Admitted with recurrent left flank pain and acute HF 01/15/2025
Recent admission for left flank pain, orthostasis and recurrent A-fib 12/16/2024 until 01/01/2025
Left flank pain, possibly musculoskeletal or DDD
Acute on chronic HFpEF
Left-sided pleural effusion s/p successful left sided thoracentesis for 600 mL 01/16/25
Paroxysmal atrial fibrillation
s/p PVI for AF 03/29/24
s/p successful CV 12/25/2024
h/o amiodarone therapy, stopped due to bradycardia 12/2024
Improved CM, presumably tachycardia mediated, EF 35% by echo 03/17/2024 in the setting of A-fib, improved to 55 to 60% by echo 06/04/2024
Orthostatic hypotension
CAD
s/p 3.0 mm Xience STEFAN to the proximal to mid LAD and PTCA alone of diagonal�1 and OM�1 02/18/2008
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
Chronic kidney disease, stage 3b
Diabetes mellitus type 2
CVA in 2013
Hypertension
Dyslipidemia
Echo 04/01/2022: EF 55%, mild cLVH, stage II diastolic dysfunction, mild MAC, mild to moderate MR, mild AI
Echo 03/17/2024: EF 35%, moderate tricuspid regurgitation and elevated pulmonary artery pressures estimated at 55-60 mmHg.
Echo 03/30/2024: Urgent bedside study in the setting of rapid response, EF 40 to 45%, no evidence of pericardial effusion
Echo 06/04/2024: LVEF improved/normalized to 55 to 60%. There is possible basal septal akinesis and basal inferior hypokinesis.
Echo 01/16/2025: Normal LV size and function, mild LVH, mild to moderate MR, moderate TR with PAP 49 mmHg, no significant change compared to prior echo
Plan:
-Patient was admitted with recurrent left flank pain and cardiology consulted for acute HF.
-Weight is down to 145 lbs on standing scale 01/17/2025. Previous dry weight was 160 lbs at last hospital discharge on 01/01/2025. Suspect true dry weight is probably a bit higher than 145 lbs as patient has evidence of OBIE on 01/17/2025.
-Cre increased to 1.8 on my review of labs 01/17/2025. Lasix 40 mg IV daily is now on hold. Patient was taking Lasix 20 mg PRN prior to admission.
-Patient had a successful left sided thoracentesis for 600 mL on 01/16/2025. This did not help her left flank pain at all.
-EF was 55 to 60% by echo 06/04/2024 and it was stable by repeat echo 01/16/2025.
-Patient cannot take beta-gina due to bradycardia.
-Patient cannot take SRINIVAS/ARB/ARNI/aldosterone antagonist due to OBIE
-Patient is not chronically on an SGLT2 inhibitor due to use of insulin for diabetes
-Patient has a known history of paroxysmal A-fib with previous PVI 03/29/2024. Patient had her first clinically significant recurrence of A-fib just prior to her 12/2024 admission and ultimately had successful inpatient CV 12/25/2024. Patient
appears to be maintaining SR without amiodarone which had to be stopped due to bradycardia. If patient has recurrent atrial arrhythmia she would most likely be a candidate for ablate and pace strategy and this was previously discussed with the
patient and both of her daughters by me during her admission last month.
-Telemetry reviewed by me on 01/16/2025 and looks like SR throughout, no obvious recurrent atrial arrhythmia and no evidence of significant bradycardia or heart block
-Patient reports compliance with her usual dosing of Eliquis 2.5 mg BID (age 84, Cre 1.4, wt 68 kg) has been continued. Cre is generally greater than 1.5 justifying the 2.5 mg BID dosing. If Cre is persistently less than 1.5 would consider
increasing dose of Eliquis to 5 mg BID.
-Patient's main complaint is recurrent left flank pain. GI workup last admission for possible acute cholecystitis yielded a negative HIDA scan and no plan for surgical intervention despite consultation from the general surgery service. There is no
clear cause for recurrent left flank pain, degenerative disc disease is also a possibility. Patient reports pain is generally improved with opioid pain medications.
-Patient had symptomatic orthostasis last admission and her doses of Coreg and Imdur ER were stopped, although Coreg was also stopped due to bradycardia. BP improved prior to discharge and Imdur ER 30 mg daily was restarted and patient reports
taking Imdur ER at home prior to this admission. BP has been normotensive to hypertensive since admission, continue Imdur ER.
-Amlodipine 2.5 mg BID was added prior to discharge last month, would continue and follow BP. No evidence of orthostasis at this time.
HPI: Patient came to the ER yesterday with complaints of recurrent left flank pain and SOB and was admitted with consultation to cardiology for acute on chronic HFpEF. Patient was recently admitted from 12/16/2024 until 01/01/2025 with left flank
pain that was initially thought to be acute cholecystitis, but HIDA scan was negative. Patient was seen in consultation by the general surgery service for possible chronic cholecystitis, but there is no plan for surgical intervention at that time.
Cardiology followed along during that admission for recurrent symptomatic atrial arrhythmia. Patient has a history of paroxysmal atrial fibrillation and previously had a prolonged hospitalization while she awaited inpatient PVI 03/29/2024. Patient
was then seen in the office at the end of November and noted to be in recurrent A-fib and the plan was for an outpatient CV, the patient was then admitted from 12/16/2024 until 01/01/2025 as noted above. Patient had a successful inpatient CV
12/25/2024 and outpatient dose of amiodarone was initially continued, but then stopped due to bradycardia following confucianism of SR. This was the patient's first documented clinically significant recurrence of A-fib since her PVI, but a plan was
tentatively made that if patient had recurrent A-fib following CV that her next option would likely be ablate and pace. Patient was also treated for symptomatic orthostasis during her admission last month and her usual doses of Imdur ER and Coreg
were stopped, although Coreg was also stopped in part due to bradycardia. Orthostasis improved, but patient still required a 1 week rehab stay prior to returning home with her family. Patient went to [facility] for 1 week and then returned home
with her family, there was a call to our office from the patient's daughter on 01/15/2025 noting increased LE edema and weight gain. When patient left the hospital she was taking Lasix 20 mg PRN weight gain and patient was advised to take a dose of
Lasix 20 mg and then called our office later to report her weight was down by 3 lbs after a single dose, but ongoing edema. Patient also had a call out to her PCP same day to report recurrence of left flank pain and PCP recommended ER evaluation
for possible pyelonephritis. Patient came to the ER last night and had a CT of the abdomen and pelvis that showed moderate left and small right sized pleural effusions, but no evidence of urinary tract calculus, dilatation or perinephric stranding.
There was possible gallbladder sludge, but as noted during her last admission her HIDA scan was negative. Patient reports ongoing left flank pain that was not improved following successful left-sided thoracentesis.
Progress Note - Emergency Vehicle Operator
Subjective
Date of Service: January 17, 2025
Patient reports ongoing left flank pain
Objective
Labs:
01/17/25 06:56
01/17/25 06:56
Labs
Hgb 11.4 g/dL (12.0-16.0) L 01/17/25 06:56
Hct 34.9 % (37.0-47.0) L 01/17/25 06:56
Plt Count 160 10^3/uL (130-400) 01/17/25 06:56
Sodium 136 mmol/L (135-145) 01/17/25 06:56
Potassium 3.9 mmol/L (3.5-5.1) 01/17/25 06:56
BUN 28 mg/dl (7-17) H 01/17/25 06:56
Creatinine 1.8 mg/dL (0.6-1.0) H 01/17/25 06:56
Glucose 81 mg/dl (70-99) 01/17/25 06:56
Vital Signs and I&O:
Vital Signs
Temp Pulse Resp BP Pulse Ox
98.4 F 63 16 121/53 99
01/17/25 11:17 01/17/25 11:17 01/17/25 11:17 01/17/25 11:17 01/17/25 11:17
Vital Signs
Temp Pulse Resp BP Pulse Ox
98.4 F 63 16 121/53 99
01/17/25 11:17 01/17/25 11:17 01/17/25 11:17 01/17/25 11:17 01/17/25 11:17
Intake & Output
01/15/25 01/16/25 01/17/25 01/18/25
06:59 06:59 06:59 06:59
Intake Total 740 / 740
Output Total 1949 275 / 275
Balance -1949 465 / 465
Physical Exam
Physical Exam
GEN: AAO x 3
LUNGS: RA. No audible wheeze
CV: SR on telemetry
[2025-01-17 17:26] LABS: Glucose - Point of Care 141 mg/dl (70-99)
[2025-01-17 21:39] LABS: Glucose - Point of Care 118 mg/dl (70-99)
[2025-01-17] MEDS: CRESTOR 10 MG PO (22:03)
[2025-01-17] MEDS: LANTUS 0.11 UNITS SC (22:04)
[2025-01-18 03:15] VITALS: BP 121/56
[2025-01-18 04:47] VITALS: BMI 22.9
[2025-01-18] MEDS: SYNTHROID 75 MCG PO (05:10)
[2025-01-18 07:00] VITALS: BP 144/63
[2025-01-18 07:46] LABS: Glucose - Point of Care 113 mg/dl (70-99)
[2025-01-18 08:19] LABS: Hematocrit 35.4 % (37.0-47.0); Hemoglobin 11.8 g/dL (12.0-16.0); Mean Corp Hgb Conc. 33.3 g/dL (33.0-37.0); Mean Corpuscular Volume 94.1 fL (81.0-99.0); Platelet Count 161 10^3/uL (130-400); Red Cell Dist. Width 16.2 % (11.5-14.5)
[2025-01-18] MEDS: VITAMIN C 250 MG PO (08:38)
[2025-01-18] MEDS: NOVOLOG FLEXPEN-LOW RESISTANCE SC ×2 (08:38→12:46)
[2025-01-18] MEDS: LOW STRENGTH ASPIRIN 81 MG PO (08:38)
[2025-01-18] MEDS: NOVOLOG FLEXPEN 5 UNITS SC ×2 (08:38→12:48)
[2025-01-18] MEDS: NORVASC 2.5 MG PO (08:39)
[2025-01-18] MEDS: TYLENOL 650 MG PO (08:39)
[2025-01-18] MEDS: ELIQUIS 2.5 MG PO (08:39)
[2025-01-18] MEDS: LIDOCAINE 4% PATCH 1 PATCH TOPICAL (08:39)
[2025-01-18] MEDS: IMDUR (EXTENDED RELEASE) 30 MG PO (08:39)
[2025-01-18] MEDS: VITAMIN B-12 1000 MCG PO (08:39)
[2025-01-18 09:00] LABS: Blood Urea Nitrogen 33 mg/dl (7-17); Calcium 9.2 mg/dl (8.4-10.2); Carbon Dioxide 27 mmol/L (22-30); Chloride 103 mmol/L (98-107); Estimated Creatinine Clearance 24 ml/min; Glucose 110 mg/dl (70-99); Potassium 4.6 mmol/L (3.5-5.1); Sodium 135 mmol/L (135-145); eGFR 29.39
--- NOTE | 2025-01-18 10:59 | W.PN.CARDCBS ---
Addendum entered and electronically signed by Jose Stone MD 01/18/25 17:05:
Note below reviewed and agree.
Original Note:
Today's Communication / Plan
-
Lasix 20 mg MWF
Cardiology follow-up arranged
Impression / Plan
-
Primary product engineering manager is Dr. Cam Read
Primary care provider is Dr. Susie Jarquin PA-C
Assessment:
Admitted with recurrent left flank pain and acute HF 01/15/2025
Recent admission for left flank pain, orthostasis and recurrent A-fib 12/16/2024 until 01/01/2025
Left flank pain, possibly musculoskeletal or DDD
Acute on chronic HFpEF
Left-sided pleural effusion s/p successful left sided thoracentesis for 600 mL 01/16/25
Paroxysmal atrial fibrillation
s/p PVI for AF 03/29/24
s/p successful CV 12/25/2024
h/o amiodarone therapy, stopped due to bradycardia 12/2024
Improved CM, presumably tachycardia mediated, EF 35% by echo 03/17/2024 in the setting of A-fib, improved to 55 to 60% by echo 06/04/2024
Orthostatic hypotension
CAD
s/p 3.0 mm Xience STEFAN to the proximal to mid LAD and PTCA alone of diagonal�1 and OM�1 02/18/2008
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
Chronic kidney disease, stage 3b
Diabetes mellitus type 2
CVA in 2013
Hypertension
Dyslipidemia
Echo 04/01/2022: EF 55%, mild cLVH, stage II diastolic dysfunction, mild MAC, mild to moderate MR, mild AI
Echo 03/17/2024: EF 35%, moderate tricuspid regurgitation and elevated pulmonary artery pressures estimated at 55-60 mmHg.
Echo 03/30/2024: Urgent bedside study in the setting of rapid response, EF 40 to 45%, no evidence of pericardial effusion
Echo 06/04/2024: LVEF improved/normalized to 55 to 60%. There is possible basal septal akinesis and basal inferior hypokinesis.
Echo 01/16/2025: Normal LV size and function, mild LVH, mild to moderate MR, moderate TR with PAP 49 mmHg, no significant change compared to prior echo
Plan:
-Patient was admitted with recurrent left flank pain and cardiology consulted for acute HF.
-Weight is down to 146 lbs on standing scale 01/18/2025. Previous dry weight was 160 lbs at last hospital discharge on 01/01/2025. Suspect true dry weight is probably a bit higher than 145 lbs as patient has evidence of OBIE on 01/17/2025.
-Cre improved a bit to 1.7 on my review of labs 01/18/2025. Patient was taking Lasix 20 mg PRN prior to admission and cardiology is recommended Lasix 20 mg once daily MWF at time of discharge.
-Patient had a successful left sided thoracentesis for 600 mL on 01/16/2025. This did not help her left flank pain at all.
-EF was 55 to 60% by echo 06/04/2024 and it was stable by repeat echo 01/16/2025.
-Patient cannot take beta-gina due to bradycardia.
-Patient cannot take SRINIVAS/ARB/ARNI/aldosterone antagonist due to OBIE
-Patient is not chronically on an SGLT2 inhibitor due to use of insulin for diabetes
-Patient has a known history of paroxysmal A-fib with previous PVI 03/29/2024. Patient had her first clinically significant recurrence of A-fib just prior to her 12/2024 admission and ultimately had successful inpatient CV 12/25/2024. Patient
appears to be maintaining SR without amiodarone which had to be stopped due to bradycardia. If patient has recurrent atrial arrhythmia she would most likely be a candidate for ablate and pace strategy and this was previously discussed with the
patient and both of her daughters by me during her admission last month.
-Patient reports compliance with her usual dosing of Eliquis 2.5 mg BID (age 84, Cre 1.4, wt 68 kg) has been continued. Cre is generally greater than 1.5 justifying the 2.5 mg BID dosing. If Cre is persistently less than 1.5 would consider
increasing dose of Eliquis to 5 mg BID.
-Patient's main complaint is recurrent left flank pain and DDD is suspected, patient is going to follow-up as an outpatient for this.
-GI workup last admission for possible acute cholecystitis yielded a negative HIDA scan and no plan for surgical intervention despite consultation from the general surgery service.
-Patient had symptomatic orthostasis last admission and her doses of Coreg and Imdur ER were stopped, although Coreg was also stopped due to bradycardia. BP improved prior to discharge and Imdur ER 30 mg daily was restarted and patient reports
taking Imdur ER at home prior to this admission. BP has been normotensive to hypertensive since admission, continue Imdur ER.
-Amlodipine 2.5 mg BID was added prior to discharge last month, would continue and follow BP. No evidence of orthostasis at this time.
-Cardiology follow-up arranged and discharge medication list adjusted by me including e-scribing of her updated Lasix dose.
HPI: Patient came to the ER yesterday with complaints of recurrent left flank pain and SOB and was admitted with consultation to cardiology for acute on chronic HFpEF. Patient was recently admitted from 12/16/2024 until 01/01/2025 with left flank
pain that was initially thought to be acute cholecystitis, but HIDA scan was negative. Patient was seen in consultation by the general surgery service for possible chronic cholecystitis, but there is no plan for surgical intervention at that time.
Cardiology followed along during that admission for recurrent symptomatic atrial arrhythmia. Patient has a history of paroxysmal atrial fibrillation and previously had a prolonged hospitalization while she awaited inpatient PVI 03/29/2024. Patient
was then seen in the office at the end of November and noted to be in recurrent A-fib and the plan was for an outpatient CV, the patient was then admitted from 12/16/2024 until 01/01/2025 as noted above. Patient had a successful inpatient CV
12/25/2024 and outpatient dose of amiodarone was initially continued, but then stopped due to bradycardia following yazidism of SR. This was the patient's first documented clinically significant recurrence of A-fib since her PVI, but a plan was
tentatively made that if patient had recurrent A-fib following CV that her next option would likely be ablate and pace. Patient was also treated for symptomatic orthostasis during her admission last month and her usual doses of Imdur ER and Coreg
were stopped, although Coreg was also stopped in part due to bradycardia. Orthostasis improved, but patient still required a 1 week rehab stay prior to returning home with her family. Patient went to [facility] for 1 week and then returned home
with her family, there was a call to our office from the patient's daughter on 01/15/2025 noting increased LE edema and weight gain. When patient left the hospital she was taking Lasix 20 mg PRN weight gain and patient was advised to take a dose of
Lasix 20 mg and then called our office later to report her weight was down by 3 lbs after a single dose, but ongoing edema. Patient also had a call out to her PCP same day to report recurrence of left flank pain and PCP recommended ER evaluation
for possible pyelonephritis. Patient came to the ER last night and had a CT of the abdomen and pelvis that showed moderate left and small right sized pleural effusions, but no evidence of urinary tract calculus, dilatation or perinephric stranding.
There was possible gallbladder sludge, but as noted during her last admission her HIDA scan was negative. Patient reports ongoing left flank pain that was not improved following successful left-sided thoracentesis.
Progress Note - Plant Worker
Subjective
Date of Service: January 18, 2025
She feels well
Objective
Labs:
01/18/25 07:48
01/18/25 07:48
Labs
Hgb 11.8 g/dL (12.0-16.0) L 01/18/25 07:48
Hct 35.4 % (37.0-47.0) L 01/18/25 07:48
Plt Count 161 10^3/uL (130-400) 01/18/25 07:48
Sodium 135 mmol/L (135-145) 01/18/25 07:48
Potassium 4.6 mmol/L (3.5-5.1) 01/18/25 07:48
BUN 33 mg/dl (7-17) H 01/18/25 07:48
Creatinine 1.7 mg/dL (0.6-1.0) H 01/18/25 07:48
Glucose 110 mg/dl (70-99) H 01/18/25 07:48
Vital Signs and I&O:
Vital Signs
Temp Pulse Resp BP Pulse Ox
97.9 F 67 16 144/63 93
01/18/25 07:00 01/18/25 08:39 01/18/25 07:00 01/18/25 08:39 01/18/25 07:00
Vital Signs
Temp Pulse Resp BP Pulse Ox
97.9 F 67 16 144/63 93
01/18/25 07:00 01/18/25 08:39 01/18/25 07:00 01/18/25 08:39 01/18/25 07:00
Intake & Output
01/16/25 01/17/25 01/18/25 01/19/25
06:59 06:59 06:59 06:59
Intake Total 740 / 740 720 / 720
Output Total 1949 / 1950 275 / 275 300 / 300
Balance -1949 465 / 465 420 / 420
Physical Exam
Physical Exam
GEN: AAO x 3
LUNGS: RA. No audible wheeze
CV: SR on telemetry
[2025-01-18 11:00] VITALS: BP 126/50
[2025-01-18 12:08] LABS: Glucose - Point of Care 133 mg/dl (70-99)
[2025-01-18 12:41] VITALS: BP 133/52; PULSE 59; O2SAT 97
--- NOTE | 2025-01-18 14:10 | CM ---
Chart reviewed. Patient will discharge home today
Per patient, her daughter will transport her home
[facility] will resume services. Update to Jenny/[facility]
IMM verbally reviewed, copy on chart
[facility]

Plan: Home, [facility]annon/ [facility]
[2025-01-18 14:18] VITALS: BP 128/59
--- NOTE | 2025-01-19 14:14 | W.HF.CON ---
Heart Failure
- LV Function
Left ventricular function study result: LV Ejection fraction >/= 50%
Ejection Fraction Percentage: 55-60
- ARNI
Patient already on ARNI: No
Heart Failure ARNI Not Indicated: LV Ejection Fraction >/= 40%
- ACEI/ARB
Patient already on ACEI/ARB: No
Heart Failure ACEI/ARB Not Indicated: LV Ejection Fraction > 40%
- Beta Maritza
Patient already on Evidence Based Beta Maritza: No
Heart Failure Evidence Based Beta Maritza Not Indicated: LV Ejection Fraction > 40%
- Mineralocorticord Receptor Antagonist
Patient already on MRA: No
Heart Failure MRA Not Indicated: LV Ejection Fraction > 40%
- SGLT-2 Inhibitor
Patient already on SGLT-2 Inhibitor: No
Heart Failure SGLT-2 Inhibitor Contraindication: Patient Refusal
- Afib Anticoagulation
Patient already on Anticoagulation for Afib: Yes
== END 2025-01-18 14:21 | disposition home health service (06) | DRG 291 ==
LOC: 4 WEST ACU 20:56
PROVIDERS: Emergency Medicine; Physician Assistant; Physician Assistant Medical; Radiology Vascular & Interventional Radiology; ADMITTING PHYSICIAN Hospitalist; ATTENDING PHYSICIAN Internal Medicine; EMERGENCY PHYSICIAN Emergency Medicine; FAMILY PHYSICIAN Family Medicine; OTHER PHYSICIAN Internal Medicine Cardiovascular Disease
PROC: 0W9B3ZZ Drainage of Left Pleural Cavity, Percutaneous Approach (ICD-10-PCS; 2025-01-16)
DX: I13.0 Hypertensive heart and chronic kidney disease with heart failure and stage 1 through stage 4 chronic kidney disease, or unspecified chronic kidney disease (principal); I50.33 Acute on chronic diastolic (congestive) heart failure; I48.19 Other persistent atrial fibrillation; E11.22 Type 2 diabetes mellitus with diabetic chronic kidney disease; N18.32 Chronic kidney disease, stage 3b; Z86.73 Personal history of transient ischemic attack (TIA), and cerebral infarction without residual deficits; I95.1 Orthostatic hypotension; I25.10 Atherosclerotic heart disease of native coronary artery without angina pectoris; M51.369 Other intervertebral disc degeneration, lumbar region without mention of lumbar back pain or lower extremity pain; E03.9 Hypothyroidism, unspecified; G89.29 Other chronic pain; Z79.82 Long term (current) use of aspirin; Z79.01 Long term (current) use of anticoagulants; Z79.4 Long term (current) use of insulin; Z79.890 Hormone replacement therapy; Z79.899 Other long term (current) drug therapy; Z82.49 Family history of ischemic heart disease and other diseases of the circulatory system; Z95.5 Presence of coronary angioplasty implant and graft; E78.00 Pure hypercholesterolemia, unspecified
CPT/HCPCS: 32555; 71045; 71046; 74176; 80048; 80053; 81003; 81015; 82150; 82945; 82962; 83036; 83605; 83615; 83880; 83986; 84157; 84436; 84443; 84478; 85025; 85027; 87015; 87070; 87205; 88112; 88305; 89051; 93005; 93306; 96361; 97116; 97162; 97166; 99285

== ENCOUNTER → 2025-02-14 10:50 | Outpatient (REF) | payer MEDICARE, BC, SELFPAY ==
[2025-02-14 12:07] LABS: Hematocrit 40.0 % (37.0-47.0); Hemoglobin 12.7 g/dL (12.0-16.0); Mean Corp Hgb Conc. 31.8 g/dL (33.0-37.0); Mean Corpuscular Volume 93.2 fL (81.0-99.0); Nucleated Red Blood Cells % 0 %; Platelet Count 327 10^3/uL (130-400); Red Cell Dist. Width 14.2 % (11.5-14.5)
[2025-02-14 12:21] LABS: COVID-19 Antigen Negative (Negative)
[2025-02-14 12:40] LABS: ALT (SGPT) 19 U/L (0-35); AST (SGOT) 23 U/L (14-36); Albumin 4.3 g/dl (3.5-5.0); Alkaline Phosphatase 107 U/L (38-126); Blood Urea Nitrogen 27 mg/dl (7-17); Calcium 9.8 mg/dl (8.4-10.2); Carbon Dioxide 26 mmol/L (22-30); Chloride 103 mmol/L (98-107); Glucose 117 mg/dl (70-99); HDL Cholesterol 46 mg/dl; Magnesium 1.9 mg/dl (1.6-2.3); Potassium 4.1 mmol/L (3.5-5.1); Sodium 138 mmol/L (135-145); Total Protein 7.3 g/dl (6.3-8.2); eGFR 34.15
[2025-02-14 12:52] LABS: Vitamin D, 25-OH*** 48.9 ng/mL (30-80)
[2025-02-14 12:56] LABS: LDL Cholesterol, Calculated 71 mg/dl; Very Low Density Lipoprotein 22 mg/dl (0-30)
[2025-02-14 13:35] LABS: Uric Acid 6.1 mg/dl (2.5-6.2)
== END ==
LOC: REG 10:50
PROVIDERS: ATTENDING PHYSICIAN Physician Assistant Medical; FAMILY PHYSICIAN Family Medicine; REFERRING PHYSICIAN Student in an Organized Health Care Education/Training Program
DX: I50.20 Unspecified systolic (congestive) heart failure (principal); R05.1 Acute cough; Z20.828 Contact with and (suspected) exposure to other viral communicable diseases; J02.9 Acute pharyngitis, unspecified; E11.22 Type 2 diabetes mellitus with diabetic chronic kidney disease; N18.4 Chronic kidney disease, stage 4 (severe); Z79.4 Long term (current) use of insulin; N25.81 Secondary hyperparathyroidism of renal origin; I48.91 Unspecified atrial fibrillation; I12.9 Hypertensive chronic kidney disease with stage 1 through stage 4 chronic kidney disease, or unspecified chronic kidney disease; I25.5 Ischemic cardiomyopathy; G45.9 Transient cerebral ischemic attack, unspecified; I25.10 Atherosclerotic heart disease of native coronary artery without angina pectoris; E78.00 Pure hypercholesterolemia, unspecified
CPT/HCPCS: 36415; 80053; 80061; 82306; 83735; 83880; 83970; 84100; 84443; 84550; 85025; 87070; 87811; 87880